=== PATIENT | female | born 1955 | race Hispanic/Latino ===

== ENCOUNTER 2018-05-29 18:23 | Inpatient (IN) | payer SELFPAY ==
[2018-05-29 19:55] LABS: Absolute Lymphocytes (CBC) 1.3 K/uL (0.7-4.9); Absolute Monocytes 0.6 K/uL (0.1-1.3); Absolute Neutrophil 4.7 K/uL (1.8-8.0); Eosinophils % 3.3 % (0-4.4); Hematocrit 28.2 % (36.0-45.0); Lymphocytes % 18.5 % (15.3-44.8); MPV 8.6 fL (7.6-11.3); Monocytes % 9.1 % (3.3-12.3); RBC Red Blood Cell Count 3.44 M/uL (3.86-4.86)
[2018-05-29] MEDS ORDERED: FUROSEMIDE 40 MG/4 ML VIAL ONE (19:55)
[2018-05-29] MEDS ORDERED: FUROSEMIDE 20 MG/ 2ML VIAL ONE (19:55)
[2018-05-29 19:56] LABS: Protime INR 1.21
[2018-05-29 20:11] LABS: Albumin 2.9 g/dL (3.4-5.0); Bilirubin Direct 0.1 mg/dL (0-0.2); Bilirubin Total 0.3 mg/dL (0.2-1.0); Potassium 4.7 mmol/L (3.5-5.1); Protein, Total 6.6 g/dL (6.4-8.2); Troponin (Emerg Dept Use Only) 0.04 ng/mL (0.0-0.045)
--- NOTE | 2018-05-29 20:20 | RAD REPORT ---
EXAM DESCRIPTION: Sol Elizabeth And Hector (2 Views)05/29/2018 8:02 pm CLINICAL HISTORY: sob COMPARISON: None FINDINGS: Mild bilateral pulmonary opacities. Small bilateral pleural effusions. The heart is mildl y enlarged IMPRESSION: These findings probably indicate CHF
--- NOTE | 2018-05-29 20:21 | ER ---
Nurse's Notes [facility] Name: Abby Meredith Age: 63 yrs Sex: Female : 1955 Arrival Date: 05/29/2018 Time: 18:34 Bed X-Ray Private MD: None, None Diagnosis: Acute combined systolic (congestive) and diastolic (congestive) heart failure Presentation: 05/29 19:12 Presenting complaint: Patient states: Bilateral leg swelling with SOB for 1 week. aj Transition of care: patient was not received from another setting of care. Onset of symptoms was May 22, 2018. Risk Assessment: Do you want to hurt yourself or someone else? Patient reports no desire to harm self or others. Initial Sepsis Screen: Does the patient meet any 2 criteria? No. Patient's initial sepsis screen is negative. Does the patient have a suspected source of infection? No. Patient's initial sepsis screen is negative. Care prior to arrival: None. 19:12 Method Of Arrival: Wheelchair aj 19:12 Acuity: TOMASA 3 aj Triage Assessment: 19:14 General: Appears in no apparent distress. uncomfortable, Behavior is calm, cooperative, aj appropriate for age. Pain: Denies pain. Neuro: Level of Consciousness is awake, alert, obeys commands, Oriented to person, place, time, situation, Appropriate for age. Respiratory: Reports shortness of breath at rest on exertion Airway is patent Respiratory effort is even, unlabored, Respiratory pattern is regular, tachypnea Onset: The symptoms/episode began/occurred gradually, the patient has mild shortness of breath. Derm: Skin is intact, is healthy with good turgor, Skin is pink, warm \T\ dry. normal. Historical: - Allergies: 19:14 PENICILLINS; aj - Home Meds: 19:14 Metformin Oral [Active]; Lisinopril Oral [Active]; pravastatin oral oral [Active]; aj gabapentin oral oral [Active]; Glipizide Oral [Active]; - PMHx: 19:14 Diabetes - IDDM; Hyperlipidemia; Hypertension; aj - PSHx: 19:14 Hernia repair; Appendectomy; aj - Immunization history:: Adult Immunizations up to date. - Social history:: Smoking status: Patient/guardian denies using tobacco. - Ebola Screening: : Patient negative for fever greater than or equal to 101.5 degrees Fahrenheit, and additional compatible Ebola Virus Disease symptoms Patient denies exposure to infectious person Patient denies travel to an Ebola-affected area in the 21 days before illness onset No symptoms or risks identified at this time. Screenin:55 Abuse screen: Denies threats or abuse. Denies injuries from another. Nutritional ca1 screening: No deficits noted. Tuberculosis screening: No symptoms or risk factors identified. Fall Risk None identified. Assessment: 19:55 General: Appears in no apparent distress. ill, Behavior is calm, cooperative. Pain: ca1 Denies pain. Neuro: Level of Consciousness is awake, alert, obeys commands, Oriented to person, place, time, situation. Cardiovascular: Reports nausea, shortness of breath, since 3 days ago. Heart tones S1 S2 present Capillary refill < 3 seconds Patient's skin is warm and dry. Edema is 3+ to left upper thigh, left lower thigh, left knee, left midcalf, left ankle, left foot, left toes, right upper thigh, right lower thigh, right knee, right midcalf, right ankle, right foot and right toes Rhythm is sinus rhythm. Respiratory: Reports shortness of breath at rest Airway is patent Trachea midline Respiratory effort is even, unlabored, Respiratory pattern is regular, symmetrical, Breath sounds are clear bilaterally. GI: Abdomen is round non-distended, Bowel sounds present X 4 quads. Abd is soft and non tender X 4 quads. Reports nausea. : No signs and/or symptoms were reported regarding the genitourinary system. EENT: No signs and/or symptoms were reported regarding the EENT system. Derm: Skin is intact, is healthy with good turgor, Skin is pink, warm \T\ dry. Musculoskeletal: Circulation, motion, and sensation intact. Range of motion: intact in all extremities. 20:12 Reassessment: Patient appears in no apparent distress at this time. Patient and/or ca1 family updated on plan of care and expected duration. Pain level reassessed. Patient is alert, oriented x 3, equal unlabored respirations, skin warm/dry/pink. Patient back from X-ray. Positioned patient comfortably on bed. Hooked back to monitors. Daughter at bedside. 21:18 Reassessment: Patient appears in no apparent distress at this time. Patient and/or ca1 family updated on plan of care and expected duration. Pain level reassessed. Patient is alert, oriented x 3, equal unlabored respirations, skin warm/dry/pink. Awaiting admitting orders. 21:30 Reassessment: Patient complaints of Headache with painscale of 9/10. Notified provider ca1 with orders carried out. 21:54 Reassessment: Patient appears in no apparent distress at this time. Patient and/or ca1 family updated on plan of care and expected duration. Pain level reassessed. Patient is alert, oriented x 3, equal unlabored respirations, skin warm/dry/pink. Patient states feeling better. Vital Signs: 19:14 BP 161 / 96; Pulse 85; Resp 25; Temp 98.8; Pulse Ox 98% on R/A; Weight 81.65 kg; Height aj 5 ft. 2 in. (157.48 cm); 20:12 BP 178 / 73; Pulse 85; Resp 21; Pulse Ox 97% on R/A; ca1 20:45 BP 166 / 82; Pulse 91; Resp 19; Pulse Ox 97% 2 lpm ; ca1 21:18 BP 161 / 84; Pulse 86; Resp 21; Pulse Ox 100% 2 lpm ; ca1 21:54 BP 169 / 76; Pulse 67; Resp 21; Pulse Ox 100% 2 lpm ; ca1 19:14 Body Mass Index 32.92 (81.65 kg, 157.48 cm) aj ED Course: 18:34 Patient arrived in ED. sb2 18:35 None, None is Private Physician. sb2 19:12 Triage completed. aj 19:14 Arm band placed on left wrist. Patient placed in waiting room, Patient notified of wait aj time. 19:20 Amrik Vigil PA is PHCP. jr8 19:20 Venancio Murray MD is Attending Physician. jr8 19:20 Patient has correct armband on for positive identification. Placed in gown. Bed in low ca1 position. Call light in reach. Side rails up X 1. 19:20 wool mixer on. Pulse ox on. NIBP on. ca1 19:31 Marian Chapa, RN is Primary Nurse. ca1 19:40 Initial lab(s) drawn, by me, sent to lab. Inserted saline lock: 20 gauge in right ca1 antecubital area, using aseptic technique. Blood collected. 20:01 Chest Pa And Lat (2 Views) XRAY In Process Unspecified. EDMS 20:20 Deepthi Mantilla MD is Hospitalizing Provider. jr8 21:53 No provider procedures requiring assistance completed. Patient admitted, IV remains in ca1 place. Administered Medications: 19:48 Drug: Lasix 60 mg Route: IVP; Site: right antecubital; ca1 20:15 Follow up: Response: No adverse reaction ca1 21:32 Drug: TORadol 30 mg Route: IVP; Site: right antecubital; ca1 21:52 Follow up: Response: No adverse reaction ca1 Outcome: 20:20 Decision to Hospitalize by Provider. jr8 22:00 Admitted to Tele via stretcher, room 405, with oxygen, with chart, Report called to ca1 Freda Brannon RN 22:00 Condition: stable 22:00 Instructed on the need for admit. 22:01 Patient left the ED. ca1 Signatures: Dispatcher [employer] EDMichelle Benson, RN RN Amrik Inman PA PA jr8 Betty Farias sb2 Marian Chapa RN RN ca1
--- NOTE | 2018-05-29 20:21 | EDPHYS ---
Physician Documentation [facility] Name: Abby Meredith Age: 63 yrs Sex: Female : 1955 Arrival Date: 05/29/2018 Time: 18:34 Bed X-Ray Private MD: None, None ED Physician Venancio Murray HPI: 05/29 19:43 This 63 yrs old Female presents to ER via Wheelchair with complaints of jr8 Shortness Of Breath, Leg Swelling. 19:43 The patient has shortness of breath at rest. Onset: The symptoms/episode began/occurred jr8 gradually, 2 week(s) ago. Duration: The symptoms are continuous. The patient's shortness of breath is aggravated by walking. Associated signs and symptoms: Pertinent positives: leg swelling . Severity of symptoms: At their worst the symptoms were moderate in the emergency department the symptoms are unchanged. The patient has not experienced similar symptoms in the past. The patient has not recently seen a physician. Denies pulmonary, heart, or renal problems . Historical: - Allergies: 19:14 PENICILLINS; aj - Home Meds: 19:14 Metformin Oral [Active]; Lisinopril Oral [Active]; pravastatin oral oral [Active]; aj gabapentin oral oral [Active]; Glipizide Oral [Active]; - PMHx: 19:14 Diabetes - IDDM; Hyperlipidemia; Hypertension; aj - PSHx: 19:14 Hernia repair; Appendectomy; aj - Immunization history:: Adult Immunizations up to date. - Social history:: Smoking status: Patient/guardian denies using tobacco. - Ebola Screening: : Patient negative for fever greater than or equal to 101.5 degrees Fahrenheit, and additional compatible Ebola Virus Disease symptoms Patient denies exposure to infectious person Patient denies travel to an Ebola-affected area in the 21 days before illness onset No symptoms or risks identified at this time. ROS: 19:43 Eyes: Negative for injury, pain, redness, and discharge, ENT: Negative for injury, jr8 pain, and discharge, Neck: Negative for injury, pain, and swelling, Abdomen/GI: Negative for abdominal pain, nausea, vomiting, diarrhea, and constipation, Back: Negative for injury and pain, MS/Extremity: Negative for injury and deformity, Skin: Negative for injury, rash, and discoloration, Neuro: Negative for headache, weakness, numbness, tingling, and seizure. 19:43 Cardiovascular: Positive for edema, orthopnea, Negative for chest pain, palpitations, paroxysmal nocturnal dyspnea. 19:43 Respiratory: Positive for dyspnea on exertion, shortness of breath. Exam: 19:43 Eyes: Pupils equal round and reactive to light, extra-ocular motions intact. Lids and jr8 lashes normal. Conjunctiva and sclera are non-icteric and not injected. Cornea within normal limits. Periorbital areas with no swelling, redness, or edema. ENT: Nares patent. No nasal discharge, no septal abnormalities noted. Tympanic membranes are normal and external auditory canals are clear. Oropharynx with no redness, swelling, or masses, exudates, or evidence of obstruction, uvula midline. Mucous membranes moist. Neck: Trachea midline, no thyromegaly or masses palpated, and no cervical lymphadenopathy. Supple, full range of motion without nuchal rigidity, or vertebral point tenderness. No Meningismus. Abdomen/GI: Soft, non-tender, with normal bowel sounds. No distension or tympany. No guarding or rebound. No evidence of tenderness throughout. Back: No spinal tenderness. No costovertebral tenderness. Full range of motion. Skin: Warm, dry with normal turgor. Normal color with no rashes, no lesions, and no evidence of cellulitis. MS/ Extremity: Pulses equal, no cyanosis. Neurovascular intact. Full, normal range of motion. Neuro: Awake and alert, GCS 15, oriented to person, place, time, and situation. Cranial nerves II-XII grossly intact. Motor strength 5/5 in all extremities. Sensory grossly intact. Cerebellar exam normal. Normal gait. 19:43 Cardiovascular: Rate: normal, Rhythm: regular, Pulses: Pulses are 2+ in right radial artery and left radial artery. Heart sounds: normal, normal S1and S2, no S3 or S4, no murmur, no rub, no gallop, Edema: 4+ edema to level of left lower thigh, left knee, left midcalf, left ankle, left foot, left toes, right lower thigh, right knee, right midcalf, right ankle, right foot and right toes, JVD: is not appreciated. 19:43 Respiratory: the patient does not display signs of respiratory distress, Respirations: tachypnea, that is mild, Breath sounds: are clear throughout, no bronchial sounds, no decreased breath sounds, no rales, rhonchi, no stridor, no wheezing. Vital Signs: 19:14 BP 161 / 96; Pulse 85; Resp 25; Temp 98.8; Pulse Ox 98% on R/A; Weight 81.65 kg; Height aj 5 ft. 2 in. (157.48 cm); 20:12 BP 178 / 73; Pulse 85; Resp 21; Pulse Ox 97% on R/A; ca1 20:45 BP 166 / 82; Pulse 91; Resp 19; Pulse Ox 97% 2 lpm ; ca1 21:18 BP 161 / 84; Pulse 86; Resp 21; Pulse Ox 100% 2 lpm ; ca1 21:54 BP 169 / 76; Pulse 67; Resp 21; Pulse Ox 100% 2 lpm ; ca1 19:14 Body Mass Index 32.92 (81.65 kg, 157.48 cm) aj MDM: 19:20 Patient medically screened. jr8 20:19 Data reviewed: vital signs, nurses notes, lab test result(s), EKG, radiologic studies, jr8 plain films. Data interpreted: Pulse oximetry: on room air is 97 %. Interpretation: normal. Counseling: I had a detailed discussion with the patient and/or guardian regarding: the historical points, exam findings, and any diagnostic results supporting the discharge/admit diagnosis, lab results, radiology results, the need for further work-up and treatment in the hospital. Physician consultation: Deepthi Mantilla MD was called at 20:20, was contacted at 20:20, regarding admission, to the telemetry unit. consult, patient's condition, and will see patient. 05/29 19:21 Order name: Basic Metabolic Panel; Complete Time: 20:12 [facility] 05/29 19:21 Order name: CBC with Diff; Complete Time: 20:09 [facility] 05/29 19:21 Order name: LFT's; Complete Time: 20:12 [facility] 05/29 19:21 Order name: Magnesium; Complete Time: 20:12 [facility] 05/29 19:21 Order name: NT PRO-BNP; Complete Time: 20:12 [facility] 05/29 19:21 Order name: PT-INR; Complete Time: 20:09 [facility] 05/29 19:16 Order name: Chest Pa And Lat (2 Views) XRAY; Complete Time: 20: 05/29 19:21 Order name: Troponin (emerg Dept Use Only); Complete Time: 20:12 [facility] 05/29 19:21 Order name: EKG; Complete Time: 19:22 [facility] 05/29 19:21 Order name: Cardiac monitoring; Complete Time: :31 [facility] 05/29 19:21 Order name: EKG - Nurse/Tech; Complete Time: : [facility] 05/29 19:21 Order name: IV Saline Lock; Complete Time: 19:41 [facility] 05/29 19:21 Order name: Labs collected and sent; Complete Time: : [facility] 05/29 19:21 Order name: O2 Per Protocol; Complete Time: : [facility] 05/29 19:21 Order name: O2 Sat Monitoring; Complete Time: :32 Administered Medications: 19:48 Drug: Lasix 60 mg Route: IVP; Site: right antecubital; ca1 20:15 Follow up: Response: No adverse reaction ca1 21:32 Drug: TORadol 30 mg Route: IVP; Site: right antecubital; ca1 21:52 Follow up: Response: No adverse reaction ca1 Disposition: 05/30 06:42 Co-signature as Attending Physician, Venancio Murray MD I agree with the assessment and kdr plan of care. Disposition: 05/29/18 20:20 Hospitalization ordered by Deepthi Mantilla for Inpatient Admission. Preliminary diagnosis is Acute combined systolic (congestive) and diastolic (congestive) heart failure. - Bed requested for Telemetry/MedSurg (Inpatient). - Status is Inpatient Admission. ca1 - Condition is Stable. - Problem is new. - Symptoms have improved. UTI on Admission? No Signatures: Dispatcher [employer] EDMS Xenia Donnelly RN RN mw Myers, Amanda, RN RN aj Rittger, Kevin, MD MD kdr Roszak, Josh, PA PA 8 Marian Chapa RN RN ca1 Corrections: (The following items were deleted from the chart) 05/29 20:44 20:20 Hospitalization Ordered by Deepthi Mantilla MD for Inpatient Admission. Preliminary diagnosis is Acute combined systolic (congestive) and diastolic (congestive) heart failure. Bed requested for Telemetry/MedSurg (Inpatient). Status is Inpatient Admission. Condition is Stable. Problem is new. Symptoms have improved. UTI on Admission? No. jr8 22:01 20:44 05/29/2018 20:20 Hospitalization Ordered by Deepthi Mantilla MD for Inpatient ca1 Admission. Preliminary diagnosis is Acute combined systolic (congestive) and diastolic (congestive) heart failure. Bed requested for Telemetry/MedSurg (Inpatient). Status is Inpatient Admission. Condition is Stable. Problem is new. Symptoms have improved. UTI on Admission? No. mw
[2018-05-29] MEDS ORDERED: KETOROLAC 30 MG/ML INJ ONE (21:35)
--- NOTE | 2018-05-29 21:35 | P.HP ---
Certification for Inpatient Patient admitted to: Inpatient With expected LOS: >2 Midnights Practitioner: I am a practitioner with admitting privileges, knowledge of patient current condition, hospital course, and medical plan of care. Services: Services provided to patient in accordance with Admission requirements found in Title 42 Section 412.3 of the Code of Federal Regulations Patient History Date of Service: 05/29/18 Reason for admission: pulmoanry edema History of Present Illness: Ms Meredith is a 63 years old woman with history of DM II, HTN, dyslipidemia, who start about 1 month ago with progressive SOB and lower extremity swelling. She has noticed that over the time, her activity was more limited because SOB, and lately she has had difficulty breathing even bed. She has been using about 5 pillows to sleep at night. Report heaviness chest pain episodes during the last month, elicited with activity and relieved with resting. The pain usually radiate to her left arm, and feel tingling in her fingers. No previous ECHO done. At arrival, she was dyspneic at rest, no chest pain, BP elevated, EKG shows SR at 80 bpm, with poor r progression in anterior leads. No ST-T abnormalities seen. ProBNP 6901. CXR with venous cephalization consistent with pulmonary edema. Allergies Penicillins Allergy (Severe, Verified 12/31/11 11:04) Anaphylaxis Home medications list reviewed: Yes - Past Medical/Surgical History -: HTN -: DM II -: obesity -: dyslipidemia Past Surgical History: Reviewed- Non-Contributory - Family History Family History: Reviewed- Non-Contributory - Social History Smoking Status: Never smoker Alcohol use: No CD- Drugs: No Place of Residence: Home Review of Systems 10-point ROS is otherwise unremarkable Physical Examination - Physical Exam General: Alert, In no apparent distress HEENT: Atraumatic, PERRLA, Mucous membr. moist/pink, EOMI, Sclerae nonicteric Neck: Supple, 2+ carotid pulse no bruit, No LAD, Without JVD or thyroid abnormality Respiratory: Normal air movement, Crackles/rales (bibasilar rales) Cardiovascular: Regular rate/rhythm, Normal S1 S2 Gastrointestinal: Normal bowel sounds, No tenderness Musculoskeletal: No tenderness, Swelling (bilateral lower extremity edema 3+) Integumentary: No rashes Neurological: Normal speech, Normal strength at 5/5 x4 extr, Normal tone, Normal affect Lymphatics: No axilla or inguinal lymphadenopathy - Studies Laboratory Data (last 24 hrs) 05/29/18 19:37: PT 14.3 H, INR 1.21 05/29/18 19:37: WBC 6.9, Hgb 9.5 L, Hct 28.2 L, Plt Count 239 05/29/18 19:37: Sodium 141, Potassium 4.7, BUN 23 H, Creatinine 1.03, Glucose 144 H, Magnesium 2.0, Total Bilirubin 0.3, AST 16, ALT 26, Alkaline Phosphatase 84 Assessment and Plan - Problems (Diagnosis) (1) CHF (congestive heart failure), NYHA class IV Current Visit: Yes Status: Acute Qualifiers: Congestive heart failure type: unspecified Qualified Code(s): I50.9 - Heart failure, unspecified (2) Diabetes mellitus Current Visit: Yes Status: Acute Qualifiers: Diabetes mellitus type: type 2 Diabetes mellitus sign writer hand insulin use: without sign writer hand use Diabetes mellitus complication status: with unspecified complications Qualified Code(s): E11.8 - Type 2 diabetes mellitus with unspecified complications (3) HTN (hypertension) Current Visit: Yes Status: Acute Qualifiers: Hypertension type: essential hypertension Qualified Code(s): I10 - Essential (primary) hypertension - Plan The patient will be admitted to the hospital due to CHF exacerbation without known LV function. Will order ECHO, IV lasix, lisinorpril and hydralazine PRN. replace electrolyte by protocol as needed, Consult cardiology for evaluation and recommendations. Will check HgbA1c, order SSI for blood sugar control. - Advance Directives Does patient have a Living Will: No Does patient have a Durable POA for Healthcare: No - Code Status/Comfort Care Code Status Assessed: Yes Code Status: Full Code
[2018-05-29] MEDS ORDERED: LISINOPRIL 10 MG TAB PO ONE (22:24)
[2018-05-29] MEDS ORDERED: ACETAMINOPHEN 500 MG TAB PO PRN (22:24)
[2018-05-29] MEDS ORDERED: HYDRALAZINE HCL 20 MG/ML VIAL IV PRN (22:24)
[2018-05-30] MEDS: TRAMADOL HCL 50 MG TAB PO PRN ×4 (00:56→20:33)
[2018-05-30] MEDS: FUROSEMIDE 40 MG/4 ML VIAL IV SCH ×4 (00:59→20:34)
[2018-05-30 05:22] LABS: Absolute Lymphocytes (CBC) 1.2 K/uL (0.7-4.9); Absolute Monocytes 0.7 K/uL (0.1-1.3); Absolute Neutrophil 3.7 K/uL (1.8-8.0); Basophils % 1.2 % (0-1.3); Eosinophils % 3.7 % (0-4.4); Hematocrit 25.1 % (36.0-45.0); Lymphocytes % 20.4 % (15.3-44.8); MPV 8.7 fL (7.6-11.3); Monocytes % 11.9 % (3.3-12.3); RBC Red Blood Cell Count 3.09 M/uL (3.86-4.86)
[2018-05-30 05:41] LABS: Potassium 4.5 mmol/L (3.5-5.1); Thyroid Stimulating Hormone 3.44 uIU/mL (0.360-3.740)
[2018-05-30] MEDS: NITROGLYCERIN 1 GM PKT TD SCH ×3 (06:44→17:23)
[2018-05-30] MEDS: INSULIN -REGULAR HUMAN 50 UNIT/0.5 ML ML SQ SCH ×4 (07:30→20:33)
[2018-05-30] MEDS: ENOXAPARIN 40 MG/0.4 ML SQ SCH (07:52)
[2018-05-30] MEDS ORDERED: PNEUMOCOCCAL VACCINE 0.5 ML IMVAC ONE (08:00)
--- NOTE | 2018-05-30 08:28 | EKG ---
Test Date: 2018-05-29 Test Time: 19:48:14 Slabbing Machine Operator: SHAYLA MEASUREMENT RESULTS: Intervals: Rate: 86 OH: 162 QRSD: 98 QT: 376 QTc: 449 [place]: P: 16 OH: 162 QRS: -13 T: 27 INTERPRETIVE STATEMENTS: Normal sinus rhythm Anterior infarct, age undetermined Abnormal ECG Compared to ECG 12/07/1994 11:33:00 Myocardial infarct finding now present Electronically Signed On 05-30-18 08:27:48 [employer] by Juan Brody
[2018-05-30] MEDS: ONDANSETRON 4 MG/2 ML VIAL IV PRN (08:59)
[2018-05-30] MEDS: LISINOPRIL 10 MG TAB PO SCH (08:59)
[2018-05-30] MEDS: LACTULOSE 20 GM/30 ML UCUP PO PRN ×2 (09:24→21:40)
--- NOTE | 2018-05-30 09:43 | P.PN ---
Subjective Date of Service: 05/30/18 Primary Care Provider: Dr. Thomas([place], [place]) Chief Complaint: pulmoanry edema Subjective: Other (Shortness of breath improved. Edema to the lower extremity still present but improved. Increase anxiety. Patient reports a history of chronic constipation. Mild nausea this morning.) Physical Examination - Vital Signs Temperature: 98.2 F Blood Pressure: 145/68 Pulse: 76 Respirations: 18 Pulse Ox (%): 99 - Physical Exam General: Alert, In no apparent distress, Oriented x3, Mild distress (Increase anxiety) HEENT: Atraumatic, Mucous membr. moist/pink Neck: Supple Respiratory: Clear to auscultation bilaterally (Better air movement bilateral), Diminished (Slightly diminished to the bases) Cardiovascular: Normal pulses, Regular rate/rhythm Gastrointestinal: Normal bowel sounds, Soft and benign, Non-distended, No tenderness, No masses, No rebound, No guarding Musculoskeletal: No tenderness, No warmth Integumentary: No erythema, No warmth, No cyanosis, Tenderness/swelling (1+ pitting edema to the lower extremities bilateral) Neurological: Normal speech, Normal strength at 5/5 x4 extr, Normal tone, Normal affect - Studies Laboratory Data (last 24 hrs) 05/29/18 19:37: PT 14.3 H, INR 1.21 05/29/18 19:37: WBC 6.9, Hgb 9.5 L, Hct 28.2 L, Plt Count 239 05/29/18 19:37: Sodium 141, Potassium 4.7, BUN 23 H, Creatinine 1.03, Glucose 144 H, Magnesium 2.0, Total Bilirubin 0.3, AST 16, ALT 26, Alkaline Phosphatase 84 Medications List Reviewed: Yes Assessment & Plan Discharge Plan: Home Plan to discharge in: Greater than 2 days Physician Review Additional Text: Impression: Edema to the lower extremities, pulmonary edema secondary to acute on chronic systolic CHF Nausea and vomiting with chronic constipation Diabetes mellitus type 2, A1c 6.1 Hypertension Obesity, BMI 32.8 GERD Anemia likely iron deficiency Suspect underlying obstructive sleep apnea: Plan: Edema to the lower extremities, pulmonary edema secondary to acute on chronic systolic CHF: Suspect acute on chronic systolic CHF. Will continue IV Lasix but will decrease to twice daily. Will monitor closely. Will maintain sats above 90%. Will wean off oxygen. Await echocardiogram. Case discussed with cardiology. Cardiology recommends CT chest to rule out pulmonary embolism. Cardiology also concern with her nausea, vomiting and chronic constipation. Cardiology recommends workup. Will order abdominal ultrasound and CT scan of the abdomen to further evaluate. Will monitor hemoglobin closely. Will continue monitor electrolytes closely. Nausea and vomiting with chronic constipation: Lower abdominal ultrasound and CT scan of the abdomen to further evaluate. Will provide medication for nausea and vomiting. Will provide medication for constipation. Patient may require GI evaluation as an outpatient. Diabetes mellitus type 2, A1c 6.1: A1c well controlled at 6.1. Will continue sliding scale. Hypertension: Will continue with medication. Will monitor and adjust appropriately. Obesity, BMI 32.8: Will address lifestyle modification education. GERD: Will provide PPI. Anemia likely iron deficiency: Will check iron and B12 studies. Will monitor hemoglobin. Patient may require blood if hemoglobin less than 7.0. Will monitor closely. Suspect underlying obstructive sleep apnea: Patient will need sleep study done as an outpatient. Time Spent Managing Pts Care (In Minutes): 55
[2018-05-30 10:28] LABS: Ferritin 6.9 ng/mL (8-388)
[2018-05-30 13:34] LABS: Urine Appearance CLEAR; Urine Bilirubin NEGATIVE (NEG); Urine Blood 2+ (NEG); Urine Color YELLOW; Urine Glucose NEGATIVE (NEG); Urine Protein 2+ (NEG); Urine Urobilinogen 0.2 mg/dL (0.2-1.0)
--- NOTE | 2018-05-30 13:44 | RAD REPORT ---
EXAM DESCRIPTION: US - Abdomen Exam Complete - 05/30/2018 1:06 pm CLINICAL HISTORY: Abdominal pain, nausea and vomiting COMPARISON: CT imaging May 30 FINDINGS: Gallbladder is not visualized. Earlier CT study showed cholecystectomy clips in place. No mass or abnormal fluid collection in the gallbladder fossa. Common bile duct is normal with no common duct stone identified. The liver and spleen show no suspicious findings. Spleen is 11 cm in maximum dimension. Liver is 17 cm in maximum dimension. The pancreas is obscured. Earlier CT study showed no pancreatic or peripancreatic abnormalities. No hydronephrosis or suspicious mass in either kidney. Aorta is normal is size. No ascites or bulky lymphadenopathy. No IVC abnormality. IMPRESSION: Cholecystectomy with no biliary tree dilatation. Pancreas is too obscured by bowel gas. Earlier CT study showed no pancreatic abnormality.
--- NOTE | 2018-05-30 13:46 | RAD REPORT ---
EXAM DESCRIPTION: RAD - Chest Pa And Lat (2 Views) - 05/30/2018 1:09 pm CLINICAL HISTORY: Dizziness, shortness of breath COMPARISON: CT imaging same date, two view chest May 29 TECHNIQUE: PA and lateral views of the chest were obtained. FINDINGS: The lungs are underinflated. Interstitial markings are prominent. Heart size is slightly e nlarged with prominent vasculature. Bilateral pleural effusions are present right greater than left. The fluid is similar to comparison. Trachea is midline. No pneumothorax. No acute bony finding noted . No aortic abnormality. IMPRESSION: Bilateral pleural effusions similar to May 29. Heart, vasculature and lung markings are all prominent. CHF/ volume overload pattern is still present not substantially different from prior day imaging.
--- NOTE | 2018-05-30 13:52 | RAD REPORT ---
EXAM DESCRIPTION: CT - Chest For Pe Angio - 05/30/2018 12:46 pm CLINICAL HISTORY: Chest pain, shortness of breath COMPARISON: Chest examination May 29 TECHNIQUE: Dynamically enhanced 3 mm thick images of the chest were obtained during administration o f approximately 150mL Isovue 370 IV contrast. Coronal and oblique MIP reconstruction images were gene rated and reviewed. Exam utilizes a protocol to evaluate the pulmonary arterial tree. All CT scans are performed using dose optimization technique as appropriate and may include automated exposure control or mA/KV adjustment according to patient size. FINDINGS: No pulmonary emboli are identified. The aorta as imaged shows no acute or suspicious finding. Small to moderate pericardial effusion up t o 11 mm in thickness. Overall cardiac size is not outside of normal range. Partial atelectasis of each lower lobe noted. Interstitial markings are prominent overall. Patient gaytan s small to moderate bilateral pleural effusions right greater than left. No pneumothorax or pleural b ased mass. No mediastinal or hilar suspicious masses. No chest wall masses or abnormal axillary lymphadenopathy. IMPRESSION: No pulmonary emboli identified. Small to moderate pericardial effusion up to 11 mm in thickness. Small to moderate bilateral pleural effusions right greater than left. Bilateral lung base atelectasis with overall interstitial thickening that can reflect failure or volu me overload.
--- NOTE | 2018-05-30 13:55 | RAD REPORT ---
EXAM DESCRIPTION: CT - Abdomen Pelvis W Contrast - 05/30/2018 1:46 pm CLINICAL HISTORY: Abdominal pain COMPARISON: None. TECHNIQUE: Biphasic, helical CT imaging of the abdomen and pelvis was performed following 100 ml non -ionic IV contrast. Oral contrast was given. All CT scans are performed using dose optimization technique as appropriate and may include automated exposure control or mA/KV adjustment according to patient size. FINDINGS: Heart and lung base findings are detailed in separate CT chest PE report. Liver and spleen show no suspicious findings. Cholecystectomy clips are present. No biliary tree dila tation. No pancreatic parenchymal solid or cystic mass. No peripancreatic edema or inflammatory stranding. Glenn miller does have a small duodenal diverticulum. Symmetric renal function is seen with no hydronephrosis or suspicious renal mass. No pyelonephritis o r acute parenchymal process. Urinary bladder is contracted around a Rai catheter. Uterus and ovarie s show no suspicious findings. Pelvic floor laxity is evident. No adrenal abnormalities. Punctate 3 m m nonobstructing calculus lower pole right kidney. No dilated bowel loops or bowel wall thickening. Moderate stool volume present in the colon. No activ e GI process seen. No free air, free fluid or inflammatory stranding. No mass or bulky lymphadenopat hy. No hernia seen. Postsurgical changes are noted to the anterior abdominal wall from prior hernia r epair. Disc and bony degenerative changes are present. No acute or destructive bone process. Vascular calcif ications are present. Patient has fluid retention in the subcutaneous fatty tissues believed be part of an overall CHF/ vol ume overload. IMPRESSION: No obstruction, free air or surgically emergent finding. No pancreatic abnormality seen. No acute or significant , GI or GUILLOTINE TRIMMER process. Fluid retention in the subcutaneous fatty tissues part of an overall failure/ volume overload present ation. Heart and lung base findings are separately detailed.
--- NOTE | 2018-05-30 14:05 | CON ---
History Of Present Illness: Ms. Meredith has been ill for more than a month. She has been refusing to come to the hospital or see a doctor and be evaluated. Her family has been suggesting that for clos e to a month, but she finally came in. She states that her weight has gone up. She has had swelling from the waist down, lots of edema in the legs, thighs, buttocks. She has been short of breath, martina ting almost everywhere. Has abdominal pain. She has not had a bowel movement in more than 3 weeks. Every morning, she gets nauseated. She denies having chills or fever. The patient has underlying d iabetes, dyslipidemia, and hypertension. She takes metformin, lisinopril, gabapentin, Pravachol, and glipizide. She is allergic to penicillin. Uses no tobacco, no alcohol. No recreational drugs. No history of myocardial infarction, stroke, vascular disease. Physical Examination: General: 5 feet 3 inches, 185 pounds. She was nauseated, retching a little bit, but no vomit was co raisa. Lungs: Do not reveal crackles. There are decreased breath sounds in the right lung base, egophony t here as well. Abdomen: Slightly obese. I suspect there may be ascites, not 100% sure. The abdominal wall certain ly has edema. Extremities: Reveal 3 to 4+ pitting edema. The troponin level is normal and N-terminal proBNP is mo re than 6900. Creatinine 1.0. Blood sugars 144, 141, and 161. She is very anemic. Hemoglobin 8.6, mean corpuscular volume 81, so a normochromic anemia with a normal platelet count and white blood ce ll count that is within normal limits. Impression: The patient has some form of right-sided heart failure. I am not sure if she has multip le PEs or not. I think a CT angio of the chest would be worthwhile doing at some point. An echocard iogram should be done. I am suspicious that she may have ascites, so CT scans and abdominal ultrasou nds are also planned. This seems to be a disease process affecting multiple organ systems, and the h eart may be the primary culprit or it may be that she has had multiple PEs from an underlying maligna ncy and the heart is secondary to that. Thank you very much for your kind referral of Mrs. Meredith. I will follow her with you. JOSY Voice ID: [id number] Report ID: [id number]
[2018-05-30 14:08] LABS: Urine Bacteria <20 /HPF (<20)
[2018-05-30 14:09] LABS: Urine Culture Reflex Order NOT NEEDED
[2018-05-30] MEDS: ATORVASTATIN 10 MG TAB PO SCH (20:34)
[2018-05-30] MEDS ORDERED: FLEET ENEMA ADULT PR ONE (21:59)
[2018-05-31] MEDS: NITROGLYCERIN 1 GM PKT TD SCH ×4 (00:28→17:23)
[2018-05-31 05:24] LABS: Absolute Lymphocytes (CBC) 1.3 K/uL (0.7-4.9); Absolute Monocytes 0.6 K/uL (0.1-1.3); Absolute Neutrophil 3.4 K/uL (1.8-8.0); Basophils % 1.4 % (0-1.3); Eosinophils % 4.3 % (0-4.4); Hematocrit 24.9 % (36.0-45.0); Lymphocytes % 22.4 % (15.3-44.8); MPV 8.7 fL (7.6-11.3); Monocytes % 10.9 % (3.3-12.3); RBC Red Blood Cell Count 3.07 M/uL (3.86-4.86)
[2018-05-31 05:39] LABS: Magnesium 2.2 mg/dL (1.8-2.4); Potassium 4.8 mmol/L (3.5-5.1)
[2018-05-31] MEDS: TRAMADOL HCL 50 MG TAB PO PRN ×3 (05:40→20:19)
[2018-05-31] MEDS: ONDANSETRON 4 MG/2 ML VIAL IV PRN ×3 (05:40→17:23)
[2018-05-31] MEDS: INSULIN -REGULAR HUMAN 50 UNIT/0.5 ML ML SQ SCH ×4 (07:30→20:21)
[2018-05-31] MEDS: FUROSEMIDE 40 MG/4 ML VIAL IV SCH ×2 (08:27→20:22)
[2018-05-31] MEDS: ENOXAPARIN 40 MG/0.4 ML SQ SCH (08:27)
[2018-05-31] MEDS: LISINOPRIL 10 MG TAB PO SCH (08:29)
[2018-05-31] MEDS ORDERED: ALPRAZOLAM 0.25 MG TABLET PO PRN (09:53)
--- NOTE | 2018-05-31 09:57 | P.PN ---
Subjective Date of Service: 05/31/18 Primary Care Provider: Dr. Thomas([place], [place]) Chief Complaint: pulmoanry edema Subjective: Other (Patient improved since yesterday. Edema to the lower extremities improved. Still with anxiety.) Physical Examination - Vital Signs Temperature: 98 F Blood Pressure: 125/58 Pulse: 78 Respirations: 16 Pulse Ox (%): 96 - Physical Exam General: Alert, In no apparent distress, Oriented x3, Cooperative, Other ( Increasing anxiety) HEENT: Atraumatic Neck: Supple Respiratory: Other (Better air movement bilateral. Less crackles to the bases) Cardiovascular: Normal pulses, Regular rate/rhythm Gastrointestinal: Normal bowel sounds, Soft and benign, Non-distended, No tenderness, No masses, No rebound, No guarding Musculoskeletal: No tenderness, No warmth Integumentary: Tenderness/swelling (Edema to the lower extremity improved) Neurological: Normal speech, Normal strength at 5/5 x4 extr, Normal tone, Abnormal affect (Increased anxiety) - Studies Medications List Reviewed: Yes Assessment & Plan Discharge Plan: Home Plan to discharge in: 48 Hours Physician Review Additional Text: Impression: Edema to the lower extremities, pulmonary edema secondary to acute on chronic systolic CHF Nausea and vomiting with chronic constipation Diabetes mellitus type 2, A1c 6.1 Hypertension Obesity, BMI 32.8 GERD Anemia with noted iron and B12 deficiency Suspect underlying obstructive sleep apnea Anxiety Plan: Edema to the lower extremities, pulmonary edema secondary to acute on chronic systolic CHF: Suspect acute on chronic systolic CHF. Will continue with IV Lasix and fluid restriction. CT scan did not reveal any pulmonary embolism. CT scan of the abdomen unremarkable. Patient to have echocardiogram and cardiac stress test. Will continue to monitor closely. Will physical therapy ambulate. Await further recommendations from cardiology. Anticipate discharge in the next 1-2 days. Patient may require home health and physical therapy at discharge. Nausea and vomiting with chronic constipation: Lower abdominal ultrasound and CT scan of the abdomen unremarkable. Will provide medication for nausea. Will also provide medication for constipation. Patient may require GI evaluation as an outpatient. Diabetes mellitus type 2, A1c 6.1: A1c well controlled at 6.1. Will continue sliding scale. Hypertension: Will continue with medication. Will monitor and adjust appropriately. Obesity, BMI 32.8: Will address lifestyle modification education. GERD: Will continue with PPI. Anemia with iron and B12 deficiency: Will provide iron and B12 supplementation. Will monitor hemoglobin. Patient may require blood if hemoglobin less than 7.0. Will monitor closely. Patient will need GI evaluation as an outpatient. Suspect underlying obstructive sleep apnea: Patient will need sleep study done as an outpatient. Anxiety: Will provide medication as needed Time Spent Managing Pts Care (In Minutes): 55
--- NOTE | 2018-05-31 10:14 | EKG ---
Test Date: 2018-05-30 Test Time: 22:16:06 Food Server: RT-O MEASUREMENT RESULTS: Intervals: Rate: 90 TX: 146 QRSD: 104 QT: 378 QTc: 462 [place]: P: 9 TX: 146 QRS: -25 T: 61 INTERPRETIVE STATEMENTS: Normal sinus rhythm Anteroseptal infarct, age undetermined Abnormal ECG Compared to ECG 05/29/2018 19:48:14 No significant changes Electronically Signed On 05-31-18 10:13:03 [id number] DEVELOPER by Juan Brody
[2018-05-31] MEDS ORDERED: CYANOCOBALAMIN 1000MCG/ML INJ IM ONE (11:00)
--- NOTE | 2018-05-31 12:45 | RAD REPORT ---
EXAM DESCRIPTION: RAD - Chest Pa And Lat (2 Views) - 05/31/2018 6:13 am CLINICAL HISTORY: follow up CHF Chest pain. COMPARISON: Chest Pa And Lat (2 Views) dated 05/30/2018; Chest Pa And Lat (2 Views) dated 05/29/2018 FINDINGS: Small left and moderate right pleural effusion again noted, unchanged. Bilateral interstit ial lung prominence appears essentially stable. The heart is mildly to moderately enlarged in size. N o displaced fractures. IMPRESSION: Stable chest.
--- NOTE | 2018-05-31 16:25 | PN ---
Since our initial evaluation, Mrs. Meredith has had a CT of the chest to rule out PE. There is no evid ence of pulmonary embolus. She has had an echocardiogram that shows a very small pericardial effusio n. The ejection fraction is normal. There is aortic sclerosis without aortic stenosis. She appears to have normal pulmonary artery pressure. Left and right atria appear to be mildly enlarged. Peric ardial effusion is very small and is not capable of causing pericardial tamponade nor is there any fi nding on there to suggest she is in tamponade. She has no evidence of mass in the abdomen nor ascite s. She has had previous gallbladder surgery. Today, the amount of edema she has is reduced. She gaytan s a sed rate that is 48. Her hemoglobin remains stable at 8.5. We have a patient with an inflammato ry condition profound anemia and what looks like high output heart failure, meaning the high cardiac output required by the anemia has led to the heart failure symptoms. Diuresis is the way to go and g etting an evaluation for her anemia is likewise important. I would not be very comfortable attributi ng this to anemia of chronic disease, perhaps a Hematology consultation would be beneficial. In the meantime, we will continue the diuresis. I think it might be worthwhile for her to do a nuclear phar macologic stress test tomorrow. JOSY Voice ID: [id number] Report ID: [id number]
[2018-05-31] MEDS: ATORVASTATIN 10 MG TAB PO SCH (20:20)
[2018-05-31] MEDS: LACTULOSE 20 GM/30 ML UCUP PO PRN (21:39)
[2018-06-01] MEDS: TRAMADOL HCL 50 MG TAB PO PRN ×4 (04:14→23:28)
[2018-06-01] MEDS: ONDANSETRON 4 MG/2 ML VIAL IV PRN (04:15)
[2018-06-01 04:39] LABS: Absolute Lymphocytes (CBC) 1.3 K/uL (0.7-4.9); Absolute Monocytes 0.7 K/uL (0.1-1.3); Absolute Neutrophil 3.8 K/uL (1.8-8.0); Basophils % 1.1 % (0-1.3); Hematocrit 25.9 % (36.0-45.0); Lymphocytes % 21.2 % (15.3-44.8); MPV 8.6 fL (7.6-11.3); Monocytes % 11.4 % (3.3-12.3); RBC Red Blood Cell Count 3.21 M/uL (3.86-4.86)
[2018-06-01 04:42] LABS: Magnesium 2.1 mg/dL (1.8-2.4); Potassium 4.9 mmol/L (3.5-5.1)
[2018-06-01] MEDS: NITROGLYCERIN 1 GM PKT TD SCH ×5 (06:00→23:27)
[2018-06-01] MEDS: INSULIN -REGULAR HUMAN 50 UNIT/0.5 ML ML SQ SCH ×4 (07:30→21:00)
--- NOTE | 2018-06-01 07:48 | ECHO ---
HEIGHT: 5 ft 3 in WEIGHT: 214 lb 4.8 oz DATE OF STUDY: 05/30/[address]: Juan Brody MD 2-DIMENSIONAL: YES M.MODE: YES DOPPLER: YES COLOR FLOW: YES TDS: PORTABLE: DEFINITY: BUBBLE STUDY: DIAGNOSIS: CONGESTIVE HEART FAILURE CARDIAC HISTORY: CATHERIZATION: NO SURGERY: NO PROSTHETIC VALVE: NO PACEMAKER: NO MEASUREMENTS (cm) DIASTOLIC (NORMALS) SYSTOLIC (NORMALS) IVSd 1.3 (0.6-1.2) LA Diam 3.9 (1.9-4.0) LVEF 59% LVIDd 4.7 (3.5-5.7) LVIDs 3.2 (2.0-3.5) %FS 31% LVPWd 1.4 (0.6-1.2) Ao Diam 3.1 (2.0-3.7) 2 DIMENSIONAL ASSESSMENT: RIGHT ATRIUM: NORMAL LEFT ATRIUM: NORMAL RIGHT VENTRICLE: NORMAL LEFT VENTRICLE: LEFT VENTRICULAR HYPERTROPHY TRICUSPID VALVE: NORMAL MITRAL VALVE: NORMAL PULMONIC VALVE: NORMAL AORTIC VALVE: SCLEROSIS PERICARDIAL EFFUSION: SMALL AORTIC ROOT: NORMAL LEFT VENTRICULAR WALL MOTION: NORMAL DOPPLER/COLOR FLOW: MILD MITRAL REGURGITATION AND TRICUSPID REGURGITATION. NORMAL RIGHT VENTRICULAR SYSTOLIC PRESSURE. NO AORITC STENOSIS OR AORTIC REGURGITATION. COMMENTS: NORMAL LEFT VENTRICULAR EJECTION FRACTION. LEFT VENTRICULAR HYPERTROPHY. SMALL PERICARDIAL EFFUSION. AORITC SCLEROSIS WITH NO AORTIC STENOSIS OR AORTIC REGURGITATION. MILD MITRAL REGURGITATION AND TRICUSPID REGURGITATION. TECHNOLOGIST: THAD DYKES
[2018-06-01] MEDS ORDERED: SODIUM CHLORIDE 0.9% 10ML INJ IV PRN (07:49)
[2018-06-01] MEDS: PROMETHAZINE 25 MG/ML VIAL IV PRN ×2 (08:08→23:27)
[2018-06-01] MEDS: CYANOCOBALAMIN 1,000 MCG TAB PO SCH (09:00)
[2018-06-01] MEDS: FERROUS SULFATE 325 MG TAB PO SCH (09:00)
[2018-06-01] MEDS: LISINOPRIL 10 MG TAB PO SCH (09:00)
--- NOTE | 2018-06-01 09:29 | P.PN ---
Subjective Date of Service: 06/01/18 Primary Care Provider: Dr. Thomas([place], [place]) Chief Complaint: pulmoanry edema Subjective: Other (Patient with nausea and vomiting this morning. Patient reports chronic nausea and vomiting. Edema to the lower extremity improved.) Physical Examination - Vital Signs Temperature: 97.9 F Blood Pressure: 146/66 Pulse: 78 Respirations: 12 Pulse Ox (%): 96 - Physical Exam General: Alert, Mild distress (Nausea and vomiting noted) HEENT: Atraumatic Neck: Supple Respiratory: Clear to auscultation bilaterally, Normal air movement Cardiovascular: Normal pulses, Regular rate/rhythm Gastrointestinal: Normal bowel sounds, Non-distended, No tenderness, No masses, Other (Nausea and vomiting noted) Musculoskeletal: No erythema, No tenderness, No warmth Integumentary: Tenderness/swelling (Edema to the lower improved) Neurological: Normal speech, Normal strength at 5/5 x4 extr, Normal tone, Abnormal affect (Increase anxiety) - Studies Medications List Reviewed: Yes Assessment & Plan Discharge Plan: Home Plan to discharge in: 48 Hours Physician Review Additional Text: Impression: Edema to the lower extremities, pulmonary edema secondary to high output cardiac failure with noted small pericardial effusion likely inflammatory in nature and related to anemia Chronic Nausea and vomiting with chronic constipation Diabetes mellitus type 2, A1c 6.1 Hypertension Obesity, BMI 32.8 GERD Anemia with noted iron and B12 deficiency Suspect underlying obstructive sleep apnea Anxiety Plan: Edema to the lower extremities, pulmonary edema secondary to high output cardiac failure with noted small pericardial effusion likely inflammatory in nature and related to anemia: Echocardiogram reviewed. Notes reviewed from cardiology. Will continue with diuresis. Will monitor closely. Elevate legs when sitting or lying. Fluid restriction to be continued. Cardiology recommends hematology consultation. Will check peripheral smear. Will need to monitor hemoglobin closely. Will discuss case with hematology. Patient with increased nausea and vomiting. This appears chronic. Will check upper GI series. Will decrease her diet to clears. Will discontinue Zofran and change to Phenergan. Will also add Protonix IV. Will also send lab to evaluate for autoimmune disease, hepatitis panel, and HIV. Will continue to reassess and monitor closely. Chronic Nausea and vomiting with chronic constipation: Patient with nausea and vomiting. Will adjust diet to clear liquids. Will check upper GI series. Abdominal ultrasound and CT scan unremarkable. She has had bowel movements during her stay. Patient will likely require GI evaluation as an outpatient. Will discontinue Zofran. Will change to Phenergan. Will add Protonix. Diabetes mellitus type 2, A1c 6.1: A1c well controlled at 6.1. Will continue sliding scale. Hypertension: Will continue with medication. Will monitor and adjust appropriately. Obesity, BMI 32.8: Will continue to address lifestyle modification education. GERD: Will continue with PPI. Anemia with iron and B12 deficiency: Will monitor closely. No need for transfustion. Will continue to iron and B12 supplementation. Will discuss with Hematology. Continue as above. Suspect underlying obstructive sleep apnea: Patient will need sleep study done as an outpatient. Anxiety: Will provide medication as needed Time Spent Managing Pts Care (In Minutes): 55
[2018-06-01] MEDS: FUROSEMIDE 40 MG/4 ML VIAL IV SCH ×2 (10:10→21:10)
[2018-06-01] MEDS: ENOXAPARIN 40 MG/0.4 ML SQ SCH (10:10)
[2018-06-01] MEDS: PANTOPRAZOLE 40 MG INJ IVP SCH (10:10)
[2018-06-01] MEDS ORDERED: REGADENOSON 0.4 MG/5 ML SYR IV ONE (10:16)
[2018-06-01 10:48] LABS: Platelet Estimate ADEQ
[2018-06-01 10:49] LABS: Blood Morphology Comment NOTED (NOT SEEN)
[2018-06-01 10:50] LABS: Anisocytosis SLIGHT
[2018-06-01] MEDS: SPIRONOLACTONE 25 MG TABLET PO SCH ×2 (11:24→21:13)
--- NOTE | 2018-06-01 11:24 | P.CNS ---
Date of Consult: 06/01/18 Primary Care Provider: Dr. Thomas([place], [place]) Chief Complaint: Lower extremity edema shortness of breath History of Present Illness: Patient is 63 years of age has been complaining of lower extremity edema for the past 3 weeks with orthopnea shortness of breath for prior history of cardiopulmonary problems she does have a history of diabetes and is compliant with her medication the all this started since she started taking her medic also been complaining of significant coughing spells during the day and night denies any fever or chills Allergies Penicillins Allergy (Severe, Verified 12/31/11 11:04) Anaphylaxis Home Medications: Gabapentin [Neurontin*] 100 mg PO TID PRN 05/30/18 Glipizide [Glucotrol] 10 mg PO BID 05/30/18 Lisinopril 10 mg PO DAILY 05/30/18 Metformin HCl [Glucophage] 1,000 mg PO BID 05/30/18 Pravastatin Sodium 40 mg PO DAILY 05/30/18 - Past Medical/Surgical History Diabetic: Yes -: HTN -: DM II -: obesity -: dyslipidemia -: hernia repair X 2 -: appendectomy - Social History Alcohol use: No CD- Drugs: No Caffeine use: Yes Place of Residence: Home Review of Systems General: Weakness Respiratory: Cough, Shortness of Breath Cardiovascular: Edema Physical Examination Temp Pulse Resp BP Pulse Ox 97.9 F 78 12 146/66 H 96 06/01/18 09:29 06/01/18 09:29 06/01/18 09:29 06/01/18 09:29 06/01/18 09:29 General: Alert, Oriented x3, Mild distress HEENT: Atraumatic Neck: Supple Respiratory: Clear to auscultation bilaterally Cardiovascular: Regular rate/rhythm, Normal S1 S2, Edema (Significant 3+ edema) Gastrointestinal: Normal bowel sounds, Soft and benign Musculoskeletal: No clubbing, No swelling - Problems (1) Lower extremity edema Current Visit: Yes Status: Acute Plan: Patient is 63 years of age admitted with 3 week history of significant lower extremity edema shortness of breath renal function is abnormal BNP is over 6 1000 patient is mildly anemic patient has cardiomegaly her hypertrophy possible underlying diastolic dysfunction chronically elevated right hemidiaphragm prominent interstitial changes continue with aggressive diuresis of lisinopril oxygenation appears to be satisfactory patient does have some pleural effusions
--- NOTE | 2018-06-01 14:35 | RAD REPORT ---
EXAM DESCRIPTION: NM - Rest Stress Cardiac Imaging - 06/01/2018 2:15 pm CLINICAL HISTORY: Chest pain COMPARISON: None. TECHNIQUE: The patient was administered approximately 10 mCi of Tc 99m Sestamibi prior to resting SP ECT imaging of the heart. The patient was then administered approximately 30 mCi of Tc 99m Sestamibi following exercise or pharmacologic stress. Multiplanar SPECT images were reviewed. FINDINGS: The end diastolic volume is 146 ml, the end systolic volume is 77 ml, and the ejection fra ction is 47 %. Focal fixed defects are present in the anteroseptal wall near the apex and in the mid inferior wall. These are typical artifacts of breast and diaphragm attenuation. Scarring is less likely. There is a broader area of diminished activity along the anterior wall on stress imaging. IMPRESSION: Questionable anterior wall stress ischemia. Mid inferior wall and apical anteroseptal defects typical for breast and diaphragm attenuation artifa ct. Enlarged end-diastolic volume of 146 mL. Ejection fraction is below normal at 47%.
--- NOTE | 2018-06-01 15:53 | RAD REPORT ---
EXAM DESCRIPTION: RAD - Abdomen 1 View (KUB) - 06/01/2018 2:35 pm CLINICAL HISTORY: Nausea, vomiting, anemia COMPARISON: CT May 30 FINDINGS: Bowel gas pattern is non-specific. No obstruction, free air or pneumatosis. Air, stool an d contrast are present throughout the colon to the level of the rectum. Contrast is from earlier CT s tudy indicating full transit through the small bowel. No suspicious calcifications are present. Clips are seen from prior hernia repair. No significant bony findings IMPRESSION: No obstruction, free air or surgically emergent finding. Oral contrast from the May 30 CT study has reached the distal rectum.
[2018-06-01] MEDS: ATORVASTATIN 10 MG TAB PO SCH (21:10)
[2018-06-02] MEDS: NITROGLYCERIN 1 GM PKT TD SCH ×4 (05:54→23:09)
[2018-06-02] MEDS: TRAMADOL HCL 50 MG TAB PO PRN ×3 (05:54→21:13)
[2018-06-02 06:14] LABS: Absolute Monocytes 0.6 K/uL (0.1-1.3); Absolute Neutrophil 4.3 K/uL (1.8-8.0); Basophils % 0.9 % (0-1.3); Eosinophils % 5.3 % (0-4.4); Hematocrit 28.4 % (36.0-45.0); Lymphocytes % 15.5 % (15.3-44.8); MPV 8.5 fL (7.6-11.3); RBC Red Blood Cell Count 3.52 M/uL (3.86-4.86)
[2018-06-02 06:39] LABS: Potassium 4.5 mmol/L (3.5-5.1)
[2018-06-02] MEDS: INSULIN -REGULAR HUMAN 50 UNIT/0.5 ML ML SQ SCH ×4 (07:30→21:00)
[2018-06-02] MEDS: PROMETHAZINE 25 MG/ML VIAL IV PRN ×3 (08:46→21:14)
[2018-06-02] MEDS: FUROSEMIDE 40 MG/4 ML VIAL IV SCH ×2 (08:49→21:13)
[2018-06-02] MEDS: CYANOCOBALAMIN 1,000 MCG TAB PO SCH (08:49)
[2018-06-02] MEDS: SPIRONOLACTONE 25 MG TABLET PO SCH ×2 (08:49→21:13)
[2018-06-02] MEDS: FERROUS SULFATE 325 MG TAB PO SCH (08:49)
[2018-06-02] MEDS: PANTOPRAZOLE 40 MG INJ IVP SCH (08:49)
[2018-06-02] MEDS: ENOXAPARIN 40 MG/0.4 ML SQ SCH (08:50)
--- NOTE | 2018-06-02 10:20 | TREADPHA ---
DX: CHEST PAIN Date of Study: 06/01/18 Ht: 5 3 Wt: 214 lb 4.8 oz Consulting Physician: SCOOTER MEDICATIONS: LASIX, LOVENOX, INSULIN, NITRO PATCH, LISINOPRIL, LIPITOR, FERROUS SULFATE. HISTORY: 63 YEAR FEMALE. CC: ACUTE SYSTOLIC/DIASTOLIC HEART FAILURE. HISTORY- INSULIN DEPENDENT DIABETES MELLITUS, HYPERLIPIDEMIA, HYPERTENSION. NON-SMOKER, NON-DRINKER. PHYSICIAL EXAMINATION: RESTING B.P.: 154/68 RESTING H.R.: 81 RESTING EKG: SINUS RHYTHM, CAN NOT RULE OUT MYOCARDIAL INFARCTION. PROTOCOL: LEXISCAN EXERCISE TIME: 3:30 B.P. AT PEAK STRESS: 126/58 IMPRESSION: LEXISCAN INJECTED, FOLLOWED BY CARDIOLITE PER PROTOCOL. SEE NUCLEAR MEDICINE REPORT. NO SUPRAVENTRICULAR TACHYCARDIA. NO VENTRICULAR TACHYCARDIA. NO PREMAURE ATRIAL CONTRACTIONS. ONE PREMATURE VENTRICULAR CONTRACTION. PATIENT REPORTED CHEST PAIN 6/10 PRIOR TO STRESS TEST. PATIENT REPORTED NO INCREASE IN CHEST PAIN THROUGHOUT PROCEDURE. NON-DIAGNOSTIC ELECTROCARDIOGRAM WITH LEXISCAN STRESS.
--- NOTE | 2018-06-02 10:23 | PN ---
Subjective: Mrs. Meredith has an abnormal Cardiolite showing anterior ischemia. I will recommend fifi taveras a cardiac cath tomorrow. If she needs a stent, it would be a very high-risk procedure because of h er low hemoglobin so far on diagnosis and she has just a modest stenosis, I will elect to do the sten t in a staged procedure probably after we are sure that she is not going to suffer from GI bleeding. I suspect her CAD is probably minimal and the stent will be required. JOSY Voice ID: [id number] Report ID: [id number]
--- NOTE | 2018-06-02 11:11 | P.PN ---
Subjective Date of Service: 06/02/18 Primary Care Provider: Dr. Thomas([place], [place]) Chief Complaint: Lower extremity edema shortness of breath Subjective: Other (Nausea still present but improved. Patient had abnormal stress test done yesterday.) Physical Examination - Vital Signs Temperature: 97.4 F Blood Pressure: 178/79 Pulse: 80 Respirations: 16 Pulse Ox (%): 99 - Physical Exam General: Alert, In no apparent distress, Oriented x3, Cooperative HEENT: Atraumatic Neck: Supple Respiratory: Crackles/rales (To the bases but improved) Cardiovascular: Normal pulses, Regular rate/rhythm Gastrointestinal: Normal bowel sounds, Soft and benign, Non-distended, No masses , No rebound, No guarding Musculoskeletal: No erythema, No tenderness, No warmth Integumentary: Tenderness/swelling (Edema to the lower extremities improved) Neurological: Normal speech, Normal strength at 5/5 x4 extr, Normal tone, Normal affect - Studies Medications List Reviewed: Yes Assessment & Plan Discharge Plan: Home Plan to discharge in: 48 Hours Physician Review Additional Text: Impression: Edema to the lower extremities, pulmonary edema secondary to high output cardiac failure with noted small pericardial effusion likely inflammatory in nature and related to anemia, abnormal cardiac stress tests likely underlying CAD Chronic Nausea and vomiting with chronic constipation Diabetes mellitus type 2, A1c 6.1 Hypertension Obesity, BMI 32.8 GERD Anemia with noted iron and B12 deficiency Suspect underlying obstructive sleep apnea Anxiety Plan: Edema to the lower extremities, pulmonary edema secondary to high output cardiac failure with noted small pericardial effusion likely inflammatory in nature and related to anemia, abnormal cardiac stress tests likely underlying CAD: Echocardiogram reviewed. Cardiac stress tests abnormal. Spoke with cardiology. Cardiology plans for heart catheterization tomorrow. Patient likely with underlying CAD. Await further recommendations. Blood pressure slightly elevated. Will add low-dose metoprolol. Will continue to monitor hemoglobin closely. Pulmonology has adjusted medication. Patient no longer on [id number]. Aldactone added. Continue with diuresis. Will assess nausea and vomiting. GI series ordered. Patient will likely require GI evaluation as an outpatient. Lab obtained for autoimmune disease, hepatitis panel, and HIV. Will continue to reassess and monitor closely. I will turn the service over to Dr. Fisher tomorrow. I will go over the plan of care with her. Chronic Nausea and vomiting with chronic constipation: Patient with nausea and vomiting. Patient to have upper GI series to further evaluate. This may be related to FESTUS-inhibitor. Medication adjusted. Abdominal ultrasound and CT scan unremarkable. She has had bowel movements during her stay. Patient will likely require GI evaluation as an outpatient. Diabetes mellitus type 2, A1c 6.1: A1c well controlled at 6.1. Will continue sliding scale. Hypertension: Will add Metoprolol for better control. Will monitor and adjust appropriately. Obesity, BMI 32.8: Will continue to address lifestyle modification education. GERD: Will continue with PPI. Anemia with iron and B12 deficiency: Will monitor closely. No need for transfustion. Will continue to iron and B12 supplementation. Continue as above. Suspect underlying obstructive sleep apnea: Patient will need sleep study done as an outpatient. Anxiety: Will provide medication as needed Time Spent Managing Pts Care (In Minutes): 55
[2018-06-02] MEDS ORDERED: ALBUTEROL 2.5 MG/3 ML NEB SOL NEB ONE (17:08)
[2018-06-02] MEDS ORDERED: IPRATROPIUM BROM 0.5MG/2.5ML NEB ONE (17:09)
[2018-06-02] MEDS: METOPROLOL TAR 25 MG TAB PO SCH (17:34)
--- NOTE | 2018-06-02 17:45 | RAD REPORT ---
EXAM DESCRIPTION: RAD - Chest Single View - 06/02/2018 5:25 pm CLINICAL HISTORY: Shortness of breath COMPARISON: May 31 TECHNIQUE: AP portable chest image was obtained 1711 hours . FINDINGS: Lung volumes remain low. Progressive lung parenchymal process. Lung base opacification and lung base pleural fluid collections have improved. Heart and vasculature are normal. No pneumothorax . No acute bony abnormality seen. No acute aortic findings suspected. IMPRESSION: Partial clearing of bilateral lung base parenchymal opacification and pleural fluid.
[2018-06-02] MEDS: ATORVASTATIN 10 MG TAB PO SCH (21:13)
[2018-06-03] MEDS: NITROGLYCERIN 1 GM PKT TD SCH ×3 (05:41→17:14)
[2018-06-03] MEDS: METOPROLOL TAR 25 MG TAB PO SCH ×2 (05:42→17:13)
[2018-06-03] MEDS: TRAMADOL HCL 50 MG TAB PO PRN ×3 (05:42→22:14)
[2018-06-03] MEDS: PROMETHAZINE 25 MG/ML VIAL IV PRN ×2 (05:43→13:08)
[2018-06-03 05:57] LABS: Absolute Lymphocytes (CBC) 1.3 K/uL (0.7-4.9); Absolute Monocytes 0.6 K/uL (0.1-1.3); Absolute Neutrophil 3.6 K/uL (1.8-8.0); Eosinophils % 5.8 % (0-4.4); Hematocrit 26.9 % (36.0-45.0); Lymphocytes % 21.6 % (15.3-44.8); MPV 8.4 fL (7.6-11.3); Monocytes % 9.9 % (3.3-12.3); RBC Red Blood Cell Count 3.36 M/uL (3.86-4.86)
[2018-06-03 06:04] LABS: Potassium 4.2 mmol/L (3.5-5.1)
[2018-06-03 06:35] VITALS: BMI 36.6
[2018-06-03] MEDS ORDERED: HEPA 1000U/500MLS 2,000 UNIT/1,000 ML BAG IV ONE (07:20)
[2018-06-03] MEDS ORDERED: LIDOCAINE 1% MPF 30 ML VIAL ONE (07:21)
[2018-06-03] MEDS ORDERED: NA CHLORIDE 0.9% 0 ML ONE (07:24)
[2018-06-03] MEDS ORDERED: MIDAZOLAM HCL 2 MG/2 ML INJ ONE ×2 (07:27→08:24)
[2018-06-03] MEDS ORDERED: FENTANYL CITR 100 MCG/2 ML ONE (07:27)
[2018-06-03] MEDS ORDERED: HEPARIN 5000 UNIT/ML 1 ML VIAL ONE (07:27)
[2018-06-03] MEDS ORDERED: NICARDIPINE HCL 25 MG/10 ML IV ONE (07:28)
[2018-06-03] MEDS ORDERED: ATROPINE SULF 1 MG/10 ML SYR IV ONE (07:28)
[2018-06-03] MEDS ORDERED: NITROGLYCERIN/D5W 25 MG/250 ML BTL IV ONE (07:28)
[2018-06-03] MEDS ORDERED: NITROGLYCERIN 100 MCG/ML SYR (for cath lab use only) IV ONE (07:28)
[2018-06-03] MEDS: INSULIN -REGULAR HUMAN 50 UNIT/0.5 ML ML SQ SCH ×4 (07:30→21:00)
[2018-06-03] MEDS ORDERED: NA CHLORIDE 0.9% 500 ML ONE (08:12)
[2018-06-03] MEDS: FERROUS SULFATE 325 MG TAB PO SCH (09:00)
[2018-06-03] MEDS: FUROSEMIDE 40 MG/4 ML VIAL IV SCH ×2 (09:00→21:00)
[2018-06-03] MEDS: SPIRONOLACTONE 25 MG TABLET PO SCH ×2 (09:00→21:09)
[2018-06-03] MEDS: CYANOCOBALAMIN 1,000 MCG TAB PO SCH (09:00)
[2018-06-03] MEDS: PANTOPRAZOLE 40 MG INJ IVP SCH (09:00)
[2018-06-03] MEDS ORDERED: ACETAMINOPHEN 325 MG TABLET PO PRN (12:00)
[2018-06-03] MEDS ORDERED: NITROGLYCERIN 0.4 MG/TAB SL PRN (12:00)
[2018-06-03] MEDS ORDERED: NA CHLORIDE 0.9% 1,000 ML IV SCH (12:00)
--- NOTE | 2018-06-03 12:39 | P.PN ---
Subjective Date of Service: 06/03/18 Primary Care Provider: Dr. Thomas([place], [place]) Chief Complaint: Lower extremity edema shortness of breath Subjective: Improving (Patient has improved significantly status post cardiac catheterization according to the patient's relative no evidence of coronary artery disease edema has declined significantly) Review of Systems Respiratory: Cough Physical Examination - Vital Signs Temperature: 97.5 F Blood Pressure: 136/63 Pulse: 74 Respirations: 16 Pulse Ox (%): 97 - Physical Exam General: Alert, Oriented x3 HEENT: Atraumatic Neck: Supple Respiratory: Clear to auscultation bilaterally Cardiovascular: No edema, Regular rate/rhythm, Edema (2+ edema significant improvement) - Studies Medications List Reviewed: Yes Assessment & Plan - Problems (Diagnosis) (1) Lower extremity edema Current Visit: Yes Status: Acute Plan: Patient has improved significantly most likely diastolic dysfunction be discharged home on spironolactone 25 mg once or twice a day continue with the metoprolol Dc lisinopril cardiac catheterization was unremarkable as per patient official report pending room-air pulse ox Physician Review Additional Text: Impression: Edema to the lower extremities, pulmonary edema secondary to high output cardiac failure with noted small pericardial effusion likely inflammatory in nature and related to anemia, abnormal cardiac stress tests likely underlying CAD Chronic Nausea and vomiting with chronic constipation Diabetes mellitus type 2, A1c 6.1 Hypertension Obesity, BMI 32.8 GERD Anemia with noted iron and B12 deficiency Suspect underlying obstructive sleep apnea Anxiety Plan: Edema to the lower extremities, pulmonary edema secondary to high output cardiac failure with noted small pericardial effusion likely inflammatory in nature and related to anemia, abnormal cardiac stress tests likely underlying CAD: Echocardiogram reviewed. Cardiac stress tests abnormal. Spoke with cardiology. Cardiology plans for heart catheterization tomorrow. Patient likely with underlying CAD. Await further recommendations. Blood pressure slightly elevated. Will add low-dose metoprolol. Will continue to monitor hemoglobin closely. Pulmonology has adjusted medication. Patient no longer on [id number]. Aldactone added. Continue with diuresis. Will assess nausea and vomiting. GI series ordered. Patient will likely require GI evaluation as an outpatient. Lab obtained for autoimmune disease, hepatitis panel, and HIV. Will continue to reassess and monitor closely. I will turn the service over to Dr. Fisher tomorrow. I will go over the plan of care with her. Chronic Nausea and vomiting with chronic constipation: Patient with nausea and vomiting. Patient to have upper GI series to further evaluate. This may be related to FESTUS-inhibitor. Medication adjusted. Abdominal ultrasound and CT scan unremarkable. She has had bowel movements during her stay. Patient will likely require GI evaluation as an outpatient. Diabetes mellitus type 2, A1c 6.1: A1c well controlled at 6.1. Will continue sliding scale. Hypertension: Will add Metoprolol for better control. Will monitor and adjust appropriately. Obesity, BMI 32.8: Will continue to address lifestyle modification education. GERD: Will continue with PPI. Anemia with iron and B12 deficiency: Will monitor closely. No need for transfustion. Will continue to iron and B12 supplementation. Continue as above. Suspect underlying obstructive sleep apnea: Patient will need sleep study done as an outpatient. Anxiety: Will provide medication as needed
[2018-06-03 13:08] LABS: HIV 1/2 Antibody Diff Not indicated.; HIV AG/AB 4TH GEN Non-reactive (Non-reactive)
--- NOTE | 2018-06-03 17:54 | OP ---
Surgeon: Juan Brody MD Procedures: Left heart catheterization, coronary and left ventricular angiography. Findings: The patient has normal coronary arteries, normal left ventricular ejection fraction. She has mildly elevated left ventricular end-diastolic pressure at 16 mmHg. No aortic valve gradient. N o mitral regurgitation. Procedure In Detail: The patient was brought to the cardiac optical lab technician in a fasting state, sedated wit h Versed and fentanyl. Prepared and draped in usual sterile fashion. Right radial artery entered us ing a 21-gauge needle. The artery was cannulated using a 0.021 inch diameter guidewire. We then use d a 6-Kazakh radial Terumo sheath to stay in the artery. It was flushed and she was given a radial c ocktail consisting of heparin, nitroglycerin, and nicardipine. We used a TIG catheter, guided it to the ascending aorta using fluoroscopy and a Terumo Glidewire with a short radius J-tip. We were able to angiogram the left coronary only. We angiogrammed the left ventricle with a Paco catheter and t he Paco catheter could not cannulate the right, so we used a 3DRC and cannulated the right. At the end of the procedure, catheters were withdrawn over a wire. An exchange wire technique was used for each catheter exchange. At the end of the procedure, the sheath was flushed, removed, and closed wit h a TR band. Estimated Blood Loss: 10 cc. Applications Project Manager: Olga Lopez. Complications: None. ADONIS/MICHAEL Voice ID: [id number] Report ID: [id number]
--- NOTE | 2018-06-03 18:52 | P.PN ---
Subjective Date of Service: 06/03/18 Primary Care Provider: Dr. Thomas([place], [place]) Chief Complaint: Lower extremity edema shortness of breath Patient seen and examined at bedside with RN. Chart reviewed. Case discussed with cardiology at this time. Patient is status post cardiac catheterization. Cardiac catheterization does appear to be normal at this time. Review of Systems 10-point ROS is otherwise unremarkable Physical Examination - Vital Signs Temperature: 99.3 F Blood Pressure: 168/74 Pulse: 81 Respirations: 18 Pulse Ox (%): 92 - Physical Exam General: Alert, In no apparent distress HEENT: Atraumatic, PERRLA, EOMI Neck: Supple, JVD not distended Respiratory: Clear to auscultation bilaterally, Normal air movement Cardiovascular: Regular rate/rhythm, Normal S1 S2 Gastrointestinal: Normal bowel sounds, No tenderness Musculoskeletal: No tenderness Integumentary: No rashes Neurological: Normal speech, Normal tone, Normal affect Lymphatics: No axilla or inguinal lymphadenopathy - Studies Medications List Reviewed: Yes Assessment & Plan - Problems (Diagnosis) (1) CHF (congestive heart failure), NYHA class IV Current Visit: Yes Status: Acute Plan: Congestive heart failure and with pulmonary edema and lower extremity edema -cardiology consulted. Appreciated recommendations at this time -echocardiogram done consistent with diastolic dysfunction -cardiac stress test abnormal. Cardiac catheterization done today with no underlying coronary artery disease noted -patient to continue on low-dose metoprolol and aldosterone at this time. Lasix b.i.d. as well -patient with marked improvement at this time -stopped on Thom inhibitor lisinopril which improved his symptoms -anticipate discharge in next 24-48 hr Qualifiers: Congestive heart failure type: diastolic Congestive heart failure chronicity: acute on chronic Qualified Code(s): I50.33 - Acute on chronic diastolic (congestive) heart failure (2) Chronic nausea Current Visit: Yes Status: Acute Plan: Acute worsening of chronic nausea and vomiting with constipation most likely secondary to diabetic gastroparesis versus medication side effect -patient will most likely need outpatient GI workup. -THOM-inhibitor at this time. Marked improvement in his symptoms as well. (3) Diabetes mellitus Current Visit: Yes Status: Chronic Qualifiers: Diabetes mellitus type: type 2 Diabetes mellitus oysterman insulin use: without intermediate use Diabetes mellitus complication status: with unspecified complications Qualified Code(s): E11.8 - Type 2 diabetes mellitus with unspecified complications (4) HTN (hypertension) Current Visit: Yes Status: Chronic Qualifiers: Hypertension type: essential hypertension Qualified Code(s): I10 - Essential (primary) hypertension Discharge Plan: Home Plan to discharge in: 24 Hours - Code Status/Comfort Care Code Status Assessed: Yes
[2018-06-03 20:49] VITALS: O2SAT 96
[2018-06-03] MEDS: ATORVASTATIN 10 MG TAB PO SCH (21:09)
[2018-06-04] MEDS: NITROGLYCERIN 1 GM PKT TD SCH ×3 (00:07→12:30)
[2018-06-04 04:09] LABS: HBsAG Nonreactive (Nonreactive); Hepatitis A IgM Antibody Nonreactive
[2018-06-04] MEDS: METOPROLOL TAR 25 MG TAB PO SCH (05:42)
[2018-06-04] MEDS: TRAMADOL HCL 50 MG TAB PO PRN ×2 (05:46→12:31)
[2018-06-04] MEDS: PROMETHAZINE 25 MG/ML VIAL IV PRN ×2 (05:47→12:31)
[2018-06-04] MEDS: INSULIN -REGULAR HUMAN 50 UNIT/0.5 ML ML SQ SCH ×2 (07:30→12:31)
[2018-06-04] MEDS: FERROUS SULFATE 325 MG TAB PO SCH (08:20)
[2018-06-04] MEDS: CYANOCOBALAMIN 1,000 MCG TAB PO SCH (08:20)
[2018-06-04] MEDS: FUROSEMIDE 40 MG/4 ML VIAL IV SCH (08:21)
[2018-06-04] MEDS: SPIRONOLACTONE 25 MG TABLET PO SCH (08:21)
[2018-06-04] MEDS: PANTOPRAZOLE 40 MG INJ IVP SCH (08:21)
--- NOTE | 2018-06-04 11:13 | RAD REPORT ---
EXAM DESCRIPTION: RAD - Barium Swallow Modified - 06/04/2018 11:03 am CLINICAL HISTORY: Coughing and choking FINDINGS: Fluoroscopy time 2.2 minutes. Seventeen fluoroscopic spot series obtained Pharyngeal residue: Vallecular, min with nectar, honey, pudding, jenelle cracker. Mild esophageal stasis No supraglottic penetration nor aspiration seen
[2018-06-04 12:32] VITALS: BP 140/65
[2018-06-04 13:19] VITALS: TEMP 98.7
--- NOTE | 2018-06-04 16:44 | P.DS ---
Admission Date: 05/29/18 Discharge Date: 06/04/18 Primary Care Provider: Dr. Thomas([place], [place]) Disposition: ROUTINE DISCHARGE Discharge Condition: GOOD Reason for Admission: Lower extremity edema shortness of breath Consultations: Cardiology Procedures: Cardiac catheterization - Problems (1) CHF (congestive heart failure), NYHA class IV Status: Acute Qualifiers: Congestive heart failure type: diastolic Congestive heart failure chronicity: acute on chronic Qualified Code(s): I50.33 - Acute on chronic diastolic (congestive) heart failure (2) Chronic nausea Status: Acute (3) Diabetes mellitus Status: Chronic Qualifiers: Diabetes mellitus type: type 2 Diabetes mellitus long chain beamer insulin use: without long chain beamer use Diabetes mellitus complication status: with unspecified complications Qualified Code(s): E11.8 - Type 2 diabetes mellitus with unspecified complications (4) HTN (hypertension) Status: Chronic Qualifiers: Hypertension type: essential hypertension Qualified Code(s): I10 - Essential (primary) hypertension Brief History of Present Illness: Ms Meredith is a 63 years old woman with history of DM II, HTN, dyslipidemia, who start about 1 month ago with progressive SOB and lower extremity swelling. She has noticed that over the time, her activity was more limited because SOB, and lately she has had difficulty breathing even bed. She has been using about 5 pillows to sleep at night. Report heaviness chest pain episodes during the last month, elicited with activity and relieved with resting. The pain usually radiate to her left arm, and feel tingling in her fingers. No previous ECHO done. At arrival, she was dyspneic at rest, no chest pain, BP elevated, EKG shows SR at 80 bpm, with poor r progression in anterior leads. No ST-T abnormalities seen. ProBNP 6901. CXR with venous cephalization consistent with pulmonary edema. Hospital Course: Overall during the hospital stay patient remained stable Patient was initially admitted to the hospital for dyspnea and pulmonary edema along with lower extremity swelling. Cardiology was consulted. Patient was started on IV Lasix and Aldactone here with a presumed diagnosis of congestive heart failure. Patient had an echocardiogram done here which had preserved ejection fraction and dilated chambers giving a diagnosis of diastolic dysfunction. Patient had improvement in her symptoms after Lasix and Aldactone. Cardiology then recommended the patient get a stress test done which was abnormal thus patient had cardiac catheterization done which was within normal limits and no coronary artery disease was noted. Patient's swelling and pulmonary edema did improve on IV Lasix and Lasix was then switched over to oral. Patient was saturating well and had no further episode of dyspnea. While here in the hospital patient was also evaluated for her chronic nausea and cough. Patient initially was taking lisinopril for her blood pressure which was held here in the hospital. Eventually stopped. Patient's cough did get better however her nausea had not resolved. At that time a modified barium swallow was done which was consistent with pharyngeal residue along with mild esophageal stasis which both are consistent with long standing diabetes and most likely having esophageal motility disorder secondary to longstanding diabetes. At that time the patient and family member were educated extensively on the disease process and the importance to control diabetes through diet and exercise and controlling esophageal motility disorder through diet and exercise as well. Patient was also asked to follow up with the GI doctor on outpatient basis and even Shiley get an EGD and colonoscopy done. There was a concern for bleeding in the colon however patient's stool occult was negative along with hemoglobin was stable throughout the hospital stay. All other chronic conditions did remain stable while here in the hospital. Once patient had marked improvement in her symptoms patient was discharged home under stable condition and was given a followup appointment with GI and primary care doctor. Patient was asked to continue taking PO Lasix and Aldactone and was given a prescription for Protonix as well. Vital Signs/Physical Exam: Temp Pulse Resp BP Pulse Ox 98.7 F 75 16 140/65 96 06/04/18 12:00 06/04/18 12:30 06/04/18 12:00 06/04/18 12:30 06/04/18 12:00 General: Alert, In no apparent distress HEENT: Atraumatic, PERRLA, EOMI Neck: Supple, JVD not distended Respiratory: Clear to auscultation bilaterally, Normal air movement Cardiovascular: Regular rate/rhythm, Normal S1 S2 Gastrointestinal: Normal bowel sounds, No tenderness Musculoskeletal: No tenderness Integumentary: No rashes Neurological: Normal speech, Normal tone, Normal affect Lymphatics: No axilla or inguinal lymphadenopathy Laboratory Data at Discharge: WBC 5.8 K/uL (4.3-10.9) 06/03/18 05:38 Hgb 9.2 g/dL (12.0-15.0) L 06/03/18 05:38 Hct 26.9 % (36.0-45.0) L 06/03/18 05:38 Plt Count 253 K/uL (152-406) 06/03/18 05:38 PT 14.3 SECONDS (9.5-12.5) H 05/29/18 19:37 INR 1.21 05/29/18 19:37 Sodium 137 mmol/L (136-145) 06/03/18 05:38 Potassium 4.2 mmol/L (3.5-5.1) 06/03/18 05:38 BUN 25 mg/dL (7-18) H 06/03/18 05:38 Creatinine 1.05 mg/dL (0.55-1.3) 06/03/18 05:38 Glucose 142 mg/dL (74-106) H 06/03/18 05:38 Magnesium 2.0 mg/dL (1.8-2.4) 06/03/18 05:38 Total Bilirubin 0.3 mg/dL (0.2-1.0) 05/29/18 19:37 AST 16 U/L (15-37) 05/29/18 19:37 ALT 26 U/L (12-78) 05/29/18 19:37 Alkaline Phosphatase 84 U/L (45-117) 05/29/18 19:37 Triglycerides 126 mg/dL (<150) 05/30/18 04:46 Cholesterol 179 mg/dL (<200) 05/30/18 04:46 HDL Cholesterol 71 mg/dL (40-60) H 05/30/18 04:46 Cholesterol/HDL Ratio 2.52 05/30/18 04:46 Home Medications: Gabapentin [Neurontin*] 100 mg PO TID PRN 05/30/18 Glipizide [Glucotrol] 10 mg PO BID 05/30/18 Metformin HCl [Glucophage] 1,000 mg PO BID 05/30/18 Pravastatin Sodium 40 mg PO DAILY 05/30/18 Furosemide [Lasix] 40 mg PO BID #60 tablet 06/04/18 Metoprolol Tartrate [Lopressor*] 12.5 mg PO BID 6AM 6PM #60 tab 06/04/18 Pantoprazole Sodium [Protonix] 40 mg PO BID #60 tablet. 06/04/18 Spironolactone [Aldactone*] 25 mg PO BID #60 tab 06/04/18 New Medications: Furosemide [Lasix] 40 mg PO BID #60 tablet Metoprolol Tartrate [Lopressor*] 12.5 mg PO BID 6AM 6PM #60 tab Pantoprazole Sodium [Protonix] 40 mg PO BID #60 tablet. Spironolactone [Aldactone*] 25 mg PO BID #60 tab Patient Discharge Instructions: Please F.u with GI and PCP in 1 to 2 week post discharge. You will need to get EGD done to evaluate for phargenal Residue and Esophageal Stasis. New medication. Aldactone 25mg Daily. Lasix 40mg BID. Protonix 40mg BID Diet: Regular Activity: Ad olesya Followup: Juan Brody MD [ACTIVE - CAN ADMIT] - 1 Week (call to schedule appointment) Italo Dixon MD [ASSOCIATE-ACTIVE - CAN ADMIT] - 1 Week (call to schedule appointment)
--- NOTE | 2018-06-05 00:51 | PN ---
Admitted to Dr. Fisher's service on 05/29/2018 for congestive heart failure. Dr. Brody performed a h eart catheterization on 06/03/2018 showing normal coronaries. The diagnosis is diastolic congestive heart failure. She is on beta-ronald and Aldactone. She is off FESTUS inhibitors. She has been seen by Dr. Ly. The patient is asymptomatic. Her right wrist entry site for the catheterization is intact with good pulses. No hematoma. Telemetry is normal. Certainly from a cardiac standpoint, t he patient can go home whenever it is okay with Dr. Fisher and we will see her as an outpatient. Tiffany akers expressed interest in having her see a fisher pot because of anemia and I will leave furth er workup up to Dr. Fisher. NICKIE/MICHAEL Voice ID: [id number] Report ID: [id number]
== END 2018-06-04 15:21 | disposition home or self-care (01) | DRG 287 ==
LOC: ER 18:23 → ERHOLD 21:20 → 4TH 22:06
PROVIDERS: ADMIT Internal Medicine; ATTEND Family Medicine
PROC: 4A023N7 Measurement of Cardiac Sampling and Pressure, Left Heart, Percutaneous Approach (ICD-10-PCS; principal; 2018-06-03)
PROC: B211YZZ Fluoroscopy of Multiple Coronary Arteries using Other Contrast (ICD-10-PCS; 2018-06-03)
PROC: B215YZZ Fluoroscopy of Left Heart using Other Contrast (ICD-10-PCS; 2018-06-03)
DX: I11.0 Hypertensive heart disease with heart failure (principal); I31.3 Pericardial effusion (noninflammatory); I50.33 Acute on chronic diastolic (congestive) heart failure; E11.8 Type 2 diabetes mellitus with unspecified complications; E78.5 Hyperlipidemia, unspecified; Z88.0 Allergy status to penicillin; Z79.84 Long term (current) use of oral hypoglycemic drugs; R11.2 Nausea with vomiting, unspecified; K59.09 Other constipation; E66.9 Obesity, unspecified; Z68.32 Body mass index [BMI] 32.0-32.9, adult; K21.9 Gastro-esophageal reflux disease without esophagitis; D50.9 Iron deficiency anemia, unspecified; F41.9 Anxiety disorder, unspecified; G47.33 Obstructive sleep apnea (adult) (pediatric); D63.8 Anemia in other chronic diseases classified elsewhere; E11.43 Type 2 diabetes mellitus with diabetic autonomic (poly)neuropathy; K31.84 Gastroparesis
CPT/HCPCS: 36415; 71045; 71046; 71275; 74018; 74177; 74230; 76700; 78452; 80048; 80061; 80074; 80076; 81001; 82607; 82728; 82962; 83036; 83540; 83735; 83880; 84443; 84466; 84484; 85025; 85610; 85652; 86038; 87389; 90670; 92611; 93005; 93017; 93306; 93458; 94640; 94760; 96374; 96375; 97112; 97116; 97163; 97530; 99285; A9500; C1893; C9113; G0009; J0360; J0583; J1644; J1650; J1940; J2250; J2405; J2550; J2785; J3010; J3420; Q9967

== ENCOUNTER 2018-06-07 18:32 | Inpatient (IN) | payer SELFPAY ==
[2018-06-07 18:57] LABS: Absolute Lymphocytes (CBC) 1.8 K/uL (0.7-4.9); Absolute Monocytes 0.7 K/uL (0.1-1.3); Basophils % 1.1 % (0-1.3); Eosinophils % 1.6 % (0-4.4); Hematocrit 31.7 % (36.0-45.0); Lymphocytes % 22.9 % (15.3-44.8); MPV 8.4 fL (7.6-11.3); Monocytes % 8.6 % (3.3-12.3); RBC Red Blood Cell Count 3.95 M/uL (3.86-4.86)
[2018-06-07 19:00] LABS: Protime INR 1.21
[2018-06-07] MEDS ORDERED: FUROSEMIDE 40 MG/4 ML VIAL ONE (19:15)
[2018-06-07] MEDS ORDERED: NITROGLYCERIN 1 GM PKT TD ONE (19:15)
[2018-06-07 19:16] LABS: Albumin 3.3 g/dL (3.4-5.0); Bilirubin Direct 0.1 mg/dL (0-0.2); Bilirubin Total 0.4 mg/dL (0.2-1.0); Magnesium 1.8 mg/dL (1.8-2.4); Potassium 3.8 mmol/L (3.5-5.1); Protein, Total 7.5 g/dL (6.4-8.2); Troponin (Emerg Dept Use Only) 0.32 ng/mL (0.0-0.045)
[2018-06-07] MEDS ORDERED: MORPHINE 4 MG/ML SYR ONE (19:41)
[2018-06-07] MEDS ORDERED: ONDANSETRON 4 MG/2 ML VIAL ONE (19:41)
--- NOTE | 2018-06-07 20:00 | RAD REPORT ---
EXAM DESCRIPTION: RAD - Chest Single View - 06/07/2018 7:38 pm CLINICAL HISTORY: CHEST PAIN Chest pain. COMPARISON: Chest Single View dated 06/02/2018; Abdomen 1 View (KUB) dated 06/01/2018; Chest Pa And La t (2 Views) dated 05/31/2018; Chest Pa And Lat (2 Views) dated 05/30/2018 FINDINGS: Portable technique limits examination quality. The lungs are grossly clear. Mild elevation the right hemidiaphragm noted. The heart is mildly enlarg ed in size. IMPRESSION: No acute intrathoracic process suspected.
[2018-06-07] MEDS ORDERED: PANTOPRAZOLE 40 MG INJ ONE (21:01)
[2018-06-07] MEDS ORDERED: LIDOCAINE VISCOUS 2% SOLN 15 ML UDC ONE (21:29)
[2018-06-07] MEDS ORDERED: MAGNE/ALUM HYDROXD 30 ML UCUP ONE (21:29)
--- NOTE | 2018-06-07 22:04 | EDPHYS ---
Physician Documentation [facility] Name: Abby Meredith Age: 63 yrs Sex: Female : 1955 Arrival Date: 06/07/2018 Time: 18:41 Bed 2 Private MD: ED Physician Zachery Fishman HPI: 06/07 19:00 This 63 yrs old Female presents to ER via EMS with complaints of Shortness Of pm1 Breath. 19:00 The patient has shortness of breath at rest. pm1 19:00 Onset: The symptoms/episode began/occurred 3 week(s) ago. Duration: The symptoms are pm1 continuous. The patient's shortness of breath is aggravated by light activity, is alleviated by nothing. Associated signs and symptoms: Pertinent positives: chest pain, Pertinent negatives: non-productive cough, productive cough, fever. Severity of symptoms: in the emergency department the symptoms are worse. The patient has been recently been admitted at [facility], discharged on 06/04/2017 with diagnosis of CHF, Diabetes, HTN. Patient reports shortness of breath improved during hospitalization. Discharged on 06/04/2017, reports shortness of breath increased over the past few days. Has burning chest pain onset today. Pain to bilateral lower extremities. Historical: - Allergies: 18:43 PENICILLINS; bp - Home Meds: 18:43 gabapentin Oral [Active]; bp 18:48 Glipizide Oral [Active]; Lasix Oral [Active]; bp 18:52 pravastatin oral oral [Active]; Metformin Oral [Active]; bp - PMHx: 18:43 Diabetes - IDDM; Hyperlipidemia; Hypertension; CHF; bp - Immunization history:: Adult Immunizations up to date. - Social history:: Smoking status: Patient/guardian denies using tobacco. - Ebola Screening: : Patient negative for fever greater than or equal to 101.5 degrees Fahrenheit, and additional compatible Ebola Virus Disease symptoms Patient denies exposure to infectious person Patient denies travel to an Ebola-affected area in the 21 days before illness onset No symptoms or risks identified at this time. ROS: 19:00 Constitutional: Negative for fever, chills, and weight loss, Eyes: Negative for injury, pm1 pain, redness, and discharge, ENT: Negative for injury, pain, and discharge, Neck: Negative for injury, pain, and swelling, Abdomen/GI: Negative for abdominal pain, nausea, vomiting, diarrhea, and constipation. 19:00 Back: Negative for injury and pain, : Negative for injury, bleeding, discharge, and swelling, Skin: Negative for injury, rash, and discoloration, Neuro: Negative for headache, weakness, numbness, tingling, and seizure. 19:00 Cardiovascular: Positive for chest pain, edema, Negative for palpitations. 19:00 Respiratory: Positive for shortness of breath. 19:00 MS/extremity: Positive for pain, of the right lower leg and left lower leg, Negative for decreased range of motion, deformity. Exam: 19:00 Constitutional: This is a well developed, well nourished patient who is awake, alert, pm1 and in no acute distress. Head/Face: Normocephalic, atraumatic. Eyes: Pupils equal round and reactive to light, extra-ocular motions intact. Lids and lashes normal. Conjunctiva and sclera are non-icteric and not injected. Cornea within normal limits. Periorbital areas with no swelling, redness, or edema. ENT: Nares patent. No nasal discharge, no septal abnormalities noted. Tympanic membranes are normal and external auditory canals are clear. Oropharynx with no redness, swelling, or masses, exudates, or evidence of obstruction, uvula midline. Mucous membranes moist. Neck: Trachea midline, no thyromegaly or masses palpated, and no cervical lymphadenopathy. Supple, full range of motion without nuchal rigidity, or vertebral point tenderness. No Meningismus. Chest/axilla: Normal chest wall appearance and motion. Nontender with no deformity. No lesions are appreciated. Cardiovascular: Regular rate and rhythm with a normal S1 and S2. No gallops, murmurs, or rubs. No pulse deficits. Abdomen/GI: Soft, non-tender, with normal bowel sounds. No distension or tympany. No guarding or rebound. No evidence of tenderness throughout. Back: No spinal tenderness. No costovertebral tenderness. Full range of motion. 19:00 Skin: Warm, dry with normal turgor. Normal color with no rashes, no lesions, and no evidence of cellulitis. Painful to light touch on bilateral lower extremities - sylvester MS/ Extremity: Pulses equal, no cyanosis. Neurovascular intact. Full, normal range of motion. 19:00 Cardiovascular: Edema: pedal edema, that is mild bilaterally. 19:00 Respiratory: the patient does not display signs of respiratory distress, Respirations: normal, Breath sounds: decreased breath sounds, are located in both bases. 19:00 Neuro: Orientation: is normal, Motor: is normal, moves all fours, Sensation: is normal, no obvious gross deficits. 19:00 Psych: Behavior/mood is anxious, Affect is animated, Oriented to person, place, time. Vital Signs: 18:30 BP 175 / 85; Pulse 90; Resp 14; Temp 98.9; Pulse Ox 100% ; Weight 81.65 kg; bp 18:45 BP 180 / 70; Pulse 85; Resp 20; Pulse Ox 100% ; bp 19:30 BP 176 / 80; Pulse 80; Resp 18; Pulse Ox 99% on R/A; ea 20:15 BP 145 / 77; Pulse 85; Resp 18; Pulse Ox 98% ; ea 21:03 BP 112 / 75; Pulse 83; Resp 19; Pulse Ox 98% on R/A; ea 22:10 BP 101 / 62; Pulse 78; Resp 18; Pulse Ox 98% ; ea 23:24 BP 124 / 88; Pulse 79; Resp 16; Pulse Ox 99% ; ea 06/08 00:50 BP 150 / 67; Pulse 81; Resp 18; Pulse Ox 100% on R/A; mw2 01:03 Temp 99.4(O); rr5 MDM: 06/07 18:45 Patient medically screened. lucio 21:04 Data reviewed: vital signs. Data interpreted: Pulse oximetry: on room air is 98 %. pm1 Interpretation: normal. Counseling: I had a detailed discussion with the patient and/or guardian regarding: the historical points, exam findings, and any diagnostic results supporting the discharge/admit diagnosis, lab results, radiology results. 22:01 Physician consultation: Lauren Patiño MD was called at 22:01, was contacted at 22:01, pm1 regarding admission, patient's condition, and will see patient. 06/07 18:44 Order name: Basic Metabolic Panel; Complete Time: 19:18 bp 06/07 18:44 Order name: CBC with Diff; Complete Time: 19:18 bp 06/07 18:44 Order name: LFT's; Complete Time: 19:18 bp 06/07 18:44 Order name: Magnesium; Complete Time: 19:18 bp 06/07 18:44 Order name: NT PRO-BNP; Complete Time: 19:18 bp 06/07 18:44 Order name: PT-INR; Complete Time: 19:18 bp 06/07 18:44 Order name: Troponin (emerg Dept Use Only); Complete Time: 19:18 bp 06/08 00:43 Order name: CBC with Automated Diff EDMS 06/08 00:43 Order name: CBC with Automated Diff EDMS 06/08 00:43 Order name: Comprehensive Metabolic Panel EDMS 06/08 00:43 Order name: Comprehensive Metabolic Panel EDMS 06/08 00:43 Order name: Magnesium EDMS 06/08 00:44 Order name: Magnesium EDMS 06/08 00:44 Order name: Phosphorus EDMS 06/07 18:44 Order name: XRAY Chest (1 view); Complete Time: 20:17 bp 06/07 18:44 Order name: EKG; Complete Time: 18:45 bp 06/07 18:44 Order name: Cardiac monitoring; Complete Time: 18:45 bp 06/07 18:44 Order name: EKG - Nurse/Tech; Complete Time: 18:45 bp 06/07 18:44 Order name: IV Saline Lock; Complete Time: 18:45 bp 06/07 18:44 Order name: Labs collected and sent; Complete Time: 18:46 bp 06/08 00:43 Order name: Heart Healthy EDMS 06/08 00:44 Order name: Phosphorus EDMS 06/08 00:53 Order name: Troponin (emerg Dept Use Only) bb 06/08 00:54 Order name: Troponin (Emerg Dept Use Only) EDMS 06/07 18:44 Order name: O2 Per Protocol; Complete Time: 18:46 bp 06/07 18:44 Order name: O2 Sat Monitoring; Complete Time: 18:46 bp Administered Medications: 19:06 Drug: Nitro-Bid Ointment 2 % 1 inches Route: Transdermal; Site: anterior chest wall; ea 19:30 Follow up: Response: No adverse reaction; Pain is unchanged, physician notified ea 19:30 Drug: Zofran 4 mg Route: IVP; Site: left wrist; ea 21:02 Follow up: Response: No adverse reaction; Marked relief of symptoms ea 19:35 Drug: morphine 4 mg Route: IVP; Site: left wrist; ea 20:00 Follow up: Response: No adverse reaction; Pain is increased ea 19:41 Drug: Lasix 40 mg Route: IVP; Site: left wrist; ea 20:00 Follow up: Response: No adverse reaction ea 20:57 Drug: ProTONIX 40 mg Route: IVP; Site: left wrist; ea 21:23 Follow up: Response: No adverse reaction ea 21:22 Drug: GI Cocktail without - (Maalox Suspension 30 ml, Lidocaine Liquid 2 % 15 ea ml) Route: PO; 22:12 Follow up: Response: No adverse reaction ea Disposition: 06/08 07:15 Co-signature as Attending Physician, Zachery Fishman MD I agree with the assessment and lucio plan of care. Disposition: 06/07/18 22:03 Hospitalization ordered by Lauren Patiño for Observation. Preliminary diagnosis are Acute on chronic diastolic (congestive) heart failure, Dyspnea. - Bed requested for Telemetry/MedSurg (observation). - Status is Observation. ea - Condition is Stable. - Problem is new. - Symptoms have improved. UTI on Admission? No Signatures: Dispatcher [employer] EDAL Zachery Fishman MD MD cha Page, Corey, PA PA cp Demetri Diehl, USER EXPERIENCE MANAGER USER EXPERIENCE MANAGER pm1 Loni Cabrales RN RN Aldo Love RN RN bp Corrections: (The following items were deleted from the chart) 06/07 22:23 22:03 Hospitalization Ordered by Lauren Patiño MD for Observation. Preliminary cp diagnosis is Acute on chronic diastolic (congestive) heart failure; Dyspnea. Bed requested for Telemetry/MedSurg (observation). Status is Observation. Condition is Stable. Problem is new. Symptoms have improved. UTI on Admission? No. pm1 06/08 01:13 06/07 22:23 06/07/2018 22:03 Hospitalization Ordered by Lauren Patiño MD for ea Observation. Preliminary diagnosis is Acute on chronic diastolic (congestive) heart failure; Dyspnea. Bed requested for Telemetry/MedSurg (observation). Status is Observation. Condition is Stable. Problem is new. Symptoms have improved. UTI on Admission? No. cp
--- NOTE | 2018-06-07 22:04 | ER ---
Nurse's Notes [facility] Name: Abby Meredith Age: 63 yrs Sex: Female : 1955 Arrival Date: 06/07/2018 Time: 18:41 Bed 2 Private MD: Diagnosis: Acute on chronic diastolic (congestive) heart failure;Dyspnea Presentation: 06/07 18:41 Presenting complaint: EMS states: INCREASING SOB FOR THREE WEEKS. Transition of care: bp patient was not received from another setting of care. Onset of symptoms is unknown. Risk Assessment: Do you want to hurt yourself or someone else? Patient reports no desire to harm self or others. Initial Sepsis Screen: Does the patient meet any 2 criteria? No. Patient's initial sepsis screen is negative. Does the patient have a suspected source of infection? No. Patient's initial sepsis screen is negative. Care prior to arrival: None. 18:41 Method Of Arrival: EMS: [facility] bp 18:41 Acuity: TOMASA 2 bp Triage Assessment: 18:30 General: Appears in no apparent distress. uncomfortable, obese, Behavior is bp cooperative, appropriate for age, anxious. Pain: Complains of pain in chest, right leg and left leg. EENT: No deficits noted. Neuro: Level of Consciousness is awake, alert, obeys commands, Oriented to person, place, time, situation, Appropriate for age. Cardiovascular: Rhythm is sinus rhythm. Respiratory: Reports shortness of breath at rest Onset: The symptoms/episode began/occurred at an unknown time. the patient has mild shortness of breath. GI: No signs and/or symptoms were reported involving the gastrointestinal system. : No signs and/or symptoms were reported regarding the genitourinary system. Derm: No deficits noted. Musculoskeletal: Swelling present in right leg and left leg. Historical: - Allergies: 18:43 PENICILLINS; bp - Home Meds: 18:43 gabapentin Oral [Active]; bp 18:48 Glipizide Oral [Active]; Lasix Oral [Active]; bp 18:52 pravastatin oral oral [Active]; Metformin Oral [Active]; bp - PMHx: 18:43 Diabetes - IDDM; Hyperlipidemia; Hypertension; CHF; bp - Immunization history:: Adult Immunizations up to date. - Social history:: Smoking status: Patient/guardian denies using tobacco. - Ebola Screening: : Patient negative for fever greater than or equal to 101.5 degrees Fahrenheit, and additional compatible Ebola Virus Disease symptoms Patient denies exposure to infectious person Patient denies travel to an Ebola-affected area in the 21 days before illness onset No symptoms or risks identified at this time. Screenin:41 Abuse screen: Denies threats or abuse. Nutritional screening: No deficits noted. ea Tuberculosis screening: No symptoms or risk factors identified. Fall Risk None identified. Assessment: 19:00 General: Appears uncomfortable, Behavior is agitated, anxious, restless. Pain: ea Complains of pain in left leg and right leg and chest. Neuro: Level of Consciousness is awake, alert, obeys commands, Oriented to person, place, time, situation. Cardiovascular: Patient's skin is warm and dry. Respiratory: Airway is patent Respiratory effort is even, unlabored, Respiratory pattern is regular, symmetrical, Breath sounds are coarse bilaterally. GI: Abdomen is non-distended. : No signs and/or symptoms were reported regarding the genitourinary system. Derm: Skin is pink, warm \T\ dry. 19:51 Reassessment: pt crying states she is having a sharp stabbing pain to her chest P bb Shanita EXECUTIVE ADMINISTRATOR notified. 20:15 Reassessment: Patient and/or family updated on plan of care and expected duration. Pain ea level reassessed. Patient is alert, oriented x 3, equal unlabored respirations, skin warm/dry/pink. Patient states symptoms have improved. 21:00 Reassessment: Patient and/or family updated on plan of care and expected duration. Pain ea level reassessed. Patient is alert, oriented x 3, equal unlabored respirations, skin warm/dry/pink. Patient states symptoms have improved. 22:10 Reassessment: Patient and/or family updated on plan of care and expected duration. Pain ea level reassessed. Patient is alert, oriented x 3, equal unlabored respirations, skin warm/dry/pink. Patient states symptoms have improved. 23:04 Reassessment: Patient and/or family updated on plan of care and expected duration. Pain ea level reassessed. Patient is alert, oriented x 3, equal unlabored respirations, skin warm/dry/pink. Awaiting on floor orders Patient states symptoms have improved. 06/08 00:30 Reassessment: Patient and/or family updated on plan of care and expected duration. Pain ea level reassessed. Patient is alert, oriented x 3, equal unlabored respirations, skin warm/dry/pink. Awaiting on physician orders. Vital Signs: 06/07 18:30 BP 175 / 85; Pulse 90; Resp 14; Temp 98.9; Pulse Ox 100% ; Weight 81.65 kg; bp 18:45 BP 180 / 70; Pulse 85; Resp 20; Pulse Ox 100% ; bp 19:30 BP 176 / 80; Pulse 80; Resp 18; Pulse Ox 99% on R/A; ea 20:15 BP 145 / 77; Pulse 85; Resp 18; Pulse Ox 98% ; ea 21:03 BP 112 / 75; Pulse 83; Resp 19; Pulse Ox 98% on R/A; ea 22:10 BP 101 / 62; Pulse 78; Resp 18; Pulse Ox 98% ; ea 23:24 BP 124 / 88; Pulse 79; Resp 16; Pulse Ox 99% ; ea 06/08 00:50 BP 150 / 67; Pulse 81; Resp 18; Pulse Ox 100% on R/A; mw2 01:03 Temp 99.4(O); rr5 ED Course: 06/07 18:41 Patient arrived in ED. bp 18:42 Triage completed. bp 18:44 Michelle Hernandez, BLAIR is Primary Nurse. aj 18:45 Demetri Diehl NP is PHCP. pm1 18:45 Zachery Fishman MD is Attending Physician. pm1 18:45 Inserted saline lock: 22 gauge in right hand, using aseptic technique. Blood collected. aj 19:00 Inserted saline lock: 22 gauge in left wrist, using aseptic technique. ea 19:00 Patient has correct armband on for positive identification. Bed in low position. Call ea light in reach. Side rails up X2. 19:01 Arm band placed on. bp 19:37 XRAY Chest (1 view) In Process Unspecified. EDMS 22:01 Lauren Patiño MD is Hospitalizing Provider. pm1 22:11 No provider procedures requiring assistance completed. Patient admitted, IV remains in ea place. 06/08 01:05 Repeat lab(s) drawn. by ED staff, sent to lab. bb Administered Medications: 06/07 19:06 Drug: Nitro-Bid Ointment 2 % 1 inches Route: Transdermal; Site: anterior chest wall; ea 19:30 Follow up: Response: No adverse reaction; Pain is unchanged, physician notified ea 19:30 Drug: Zofran 4 mg Route: IVP; Site: left wrist; ea 21:02 Follow up: Response: No adverse reaction; Marked relief of symptoms ea 19:35 Drug: morphine 4 mg Route: IVP; Site: left wrist; ea 20:00 Follow up: Response: No adverse reaction; Pain is increased ea 19:41 Drug: Lasix 40 mg Route: IVP; Site: left wrist; ea 20:00 Follow up: Response: No adverse reaction ea 20:57 Drug: ProTONIX 40 mg Route: IVP; Site: left wrist; ea 21:23 Follow up: Response: No adverse reaction ea 21:22 Drug: GI Cocktail without - (Maalox Suspension 30 ml, Lidocaine Liquid 2 % 15 ea ml) Route: PO; 22:12 Follow up: Response: No adverse reaction ea Outcome: 22:03 Decision to Hospitalize by Provider. pm1 22:30 Instructed on the need for admit. ea 06/08 01:04 Admitted to Tele accompanied by tech, family with patient, via stretcher, room 420, bb Report called to Lara PINTO Condition: stable 01:13 Patient left the ED. ea Signatures: Dispatcher [employer] EDMS Michelle Hernandez RN RN aj Ballard, Brenda RN RN bb Demetri Diehl, SHANNON EXECUTIVE ADMINISTRATOR pm1 Loni Cabrales RN RN ea Peltier, Brian RN BLAIR Thomas Khan mw2 Cem Cornejo, RN RN rr5 Corrections: (The following items were deleted from the chart) 00:30 01 23:04 Reassessment: Patient and/or family updated on plan of care and expected ea duration. Pain level reassessed. Patient is alert, oriented x 3, equal unlabored respirations, skin warm/dry/pink. Patient states symptoms have improved. ea
[2018-06-08] MEDS ORDERED: ACETAMINOPHEN 500 MG TAB PO PRN (00:39)
[2018-06-08] MEDS ORDERED: ALPRAZOLAM 0.25 MG TABLET PO PRN (00:39)
[2018-06-08] MEDS ORDERED: MAGNESIUM HYDROXIDE 8% 30 ML PO PRN (00:39)
[2018-06-08] MEDS ORDERED: ONDANSETRON 4 MG/2 ML VIAL IV PRN (00:39)
[2018-06-08] MEDS ORDERED: GABAPENTIN 100 MG CAP PO PRN (00:42)
[2018-06-08] MEDS ORDERED: NA CHLORIDE 0.9% 1,000 ML IV SCH (01:00)
[2018-06-08 01:44] VITALS: BMI 35.4
[2018-06-08] MEDS ORDERED: MORPHINE 4 MG/ML SYR IV ONE (01:56)
[2018-06-08] MEDS: IPRATROPIUM BROM 0.5MG/2.5ML NEB SCH ×3 (02:51→13:49)
[2018-06-08] MEDS: ALBUTEROL 2.5 MG/3 ML NEB SOL NEB SCH ×3 (02:51→13:49)
[2018-06-08] MEDS: METOPROLOL TAR 25 MG TAB PO SCH ×2 (05:40→17:58)
[2018-06-08] MEDS: PANTOPRAZOLE 40MG TABLET PO SCH ×2 (05:41→17:58)
[2018-06-08 06:23] LABS: Urine Appearance CLEAR; Urine Bilirubin NEGATIVE (NEG); Urine Blood NEGATIVE (NEG); Urine Color YELLOW; Urine Glucose NEGATIVE (NEG); Urine Protein 2+ (NEG); Urine Specific Gravity <=1.005 (1.005-1.030); Urine Urobilinogen 0.2 mg/dL (0.2-1.0)
--- NOTE | 2018-06-08 06:26 | EKG ---
Test Date: 2018-06-07 Test Time: 18:39:45 Cloth Edge Singer: BASIM MEASUREMENT RESULTS: Intervals: Rate: 86 PA: 160 QRSD: 116 QT: 394 QTc: 471 [place]: P: 32 PA: 160 QRS: -48 T: 86 INTERPRETIVE STATEMENTS: Normal sinus rhythm Left axis deviation Anterior infarct, age undetermined Intraventricular conduction delay Abnormal ECG Compared to ECG 05/30/2018 22:16:06 Left-axis deviation now present Myocardial infarct finding still present Electronically Signed On 06-08-18 06:18:34 LIDAR SCIENTIST by Juan Brody
[2018-06-08 06:29] LABS: Urine Microscopic Reflex ORDER UMIC
[2018-06-08 06:36] LABS: Urine Bacteria 20-50 /HPF (<20); Urine RBC NONE SEEN /HPF (NONE SEEN)
[2018-06-08 06:37] LABS: Urine Culture Reflex Order REFLEXED
[2018-06-08] MEDS ORDERED: METFORMIN HCL 500 MG TAB PO SCH (08:00)
[2018-06-08] MEDS: glipiZIDE 5 MG TAB PO SCH ×2 (08:04→17:59)
[2018-06-08] MEDS ORDERED: ATORVASTATIN 10 MG TAB PO SCH (09:00)
[2018-06-08] MEDS ORDERED: ENOXAPARIN 40 MG/0.4 ML SQ SCH (09:00)
[2018-06-08] MEDS: FUROSEMIDE 40 MG TABLET PO SCH ×2 (09:44→17:57)
[2018-06-08] MEDS: SPIRONOLACTONE 25 MG TABLET PO SCH ×2 (09:44→17:59)
--- NOTE | 2018-06-08 10:19 | P.HP ---
Certification for Inpatient Patient admitted to: Inpatient With expected LOS: >2 Midnights Patient will require the following post-hospital care: None Practitioner: I am a practitioner with admitting privileges, knowledge of patient current condition, hospital course, and medical plan of care. Services: Services provided to patient in accordance with Admission requirements found in Title 42 Section 412.3 of the Code of Federal Regulations Patient History Date of Service: 06/08/18 Reason for admission: Shortness of breath; UTI; generalized pain History of Present Illness: Patient is a 63-year-old female came into the hospital with difficulty breathing. Patient states it has been going on for the last few weeks. It comes and goes. This is exacerbated with minimal activity. She has some chest discomfort as well. She was in the hospital less than a week ago with similar complaints. Since her discharge a couple of days ago her symptoms have worsened. She is also having pain to her lower extremity. She will be admitted to the hospital for further workup. In the emergency room she had Dopplers and CT scans which were negative. Seems to have some generalized anxiety as well. She may benefit from and anxiolytics. Will accounting officer some pain medication and admit her to the hospital for further workup. Allergies Penicillins Allergy (Severe, Verified 12/31/11 11:04) Anaphylaxis Home Medications: Glipizide [Glucotrol] 10 mg PO BID 05/30/18 Metformin HCl [Glucophage] 1,000 mg PO BID 05/30/18 Furosemide [Lasix] 40 mg PO BID #60 tablet 06/04/18 Metoprolol Tartrate [Lopressor*] 12.5 mg PO BID 6AM 6PM #60 tab 06/04/18 Pantoprazole Sodium [Protonix] 40 mg PO BID #60 tablet. 06/04/18 Spironolactone [Aldactone*] 25 mg PO BID #60 tab 06/04/18 Pravastatin Sodium 40 mg PO DAILY 06/08/18 - Past Medical/Surgical History Has patient received pneumonia vaccine in the past: Yes Diabetic: Yes -: HTN -: DM II -: obesity -: dyslipidemia -: CHF -: spider bite at least ten yearas ago -: hernia repair X 2 -: appendectomy - Family History Mother Medical History: Diabetes, Kidney disease - Social History Smoking Status: Never smoker Alcohol use: No Caffeine use: Yes Place of Residence: Home Review of Systems 10-point ROS is otherwise unremarkable Physical Examination - Vital Signs Temperature: 97.6 F Blood Pressure: 109/52 Pulse: 68 Respirations: 18 Pulse Ox (%): 98 - Physical Exam General: Alert, In no apparent distress, Oriented x3 HEENT: Atraumatic, PERRLA, Mucous membr. moist/pink, EOMI, Sclerae nonicteric Neck: Supple, 2+ carotid pulse no bruit, No LAD, Without JVD or thyroid abnormality Respiratory: Diminished, Other (Basilar crackles) Cardiovascular: Regular rate/rhythm, Normal S1 S2, Systolic murmur Gastrointestinal: Normal bowel sounds, Soft and benign, Non-distended, No tenderness Musculoskeletal: No clubbing, No tenderness, Swelling Integumentary: No rashes Neurological: Normal gait, Normal speech, Normal strength at 5/5 x4 extr, Normal tone, Sensation intact, Cranial nerves 3-12 intact, Normal affect Lymphatics: No axilla or inguinal lymphadenopathy - Studies Laboratory Data (last 24 hrs) 06/07/18 18:48: PT 14.3 H, INR 1.21 06/07/18 18:48: WBC 7.7 D, Hgb 10.6 L, Hct 31.7 L D, Plt Count 261 06/07/18 18:48: Sodium 138, Potassium 3.8, BUN 17, Creatinine 1.23, Glucose 117 H, Magnesium 1.8, Total Bilirubin 0.4, AST 20, ALT 24, Alkaline Phosphatase 83 Assessment & Plan - Problems (Diagnosis) (1) CHF (congestive heart failure), NYHA class IV Current Visit: No Status: Acute Qualifiers: (2) Lower extremity edema Current Visit: No Status: Acute (3) Diabetes mellitus Current Visit: No Status: Chronic Qualifiers: (4) HTN (hypertension) Current Visit: No Status: Chronic Qualifiers: (5) UTI (urinary tract infection) Current Visit: Yes Status: Acute (6) Elevated troponin Current Visit: Yes Status: Acute - Plan 1. Echocardiogram was reviewed. Patient on a cardiac catheterization. No significant abnormalities. Troponins are elevated once again. However most likely not related to cardiac issues. 2. Continue gentle diuresing 3. Continue beta-ronald 4. Cardiology consultation 5. Pain medication/she may benefit from medicine for generalized anxiety disorder 6. Strict I's and O's 7. Repeat CXR 8. Daily weights 9. GI and DVT prophylaxis Discharge Plan: Home Plan to discharge in: 48 Hours - Advance Directives Does patient have a Living Will: No Does patient have a Durable POA for Healthcare: No - Code Status/Comfort Care Code Status Assessed: Yes Code Status: Full Code Critical Care: No Time Spent Managing PTS Care (In Minutes): 50
[2018-06-08] MEDS ORDERED: Levofloxacin500mg IV 500 MG/100 ML BAG IV SCH (11:00)
[2018-06-08 11:42] LABS: Absolute Lymphocytes (CBC) 1.3 K/uL (0.7-4.9); Absolute Monocytes 0.7 K/uL (0.1-1.3); Absolute Neutrophil 5.1 K/uL (1.8-8.0); Basophils % 1.2 % (0-1.3); Eosinophils % 2.3 % (0-4.4); Hematocrit 28.1 % (36.0-45.0); Lymphocytes % 17.8 % (15.3-44.8); MPV 8.7 fL (7.6-11.3); Monocytes % 9.1 % (3.3-12.3)
[2018-06-08 12:02] LABS: Magnesium 1.7 mg/dL (1.8-2.4); Phosphorus 4.5 mg/dL (2.5-4.9); Potassium 3.8 mmol/L (3.5-5.1)
[2018-06-08] MEDS ORDERED: POTASSIUM CL SA 10 MEQ TAB PO ONE (13:15)
[2018-06-08] MEDS ORDERED: MAGNESIUM SULFATE 1 gm IVPB 1 GM/100 ML BAG IV ONE (13:16)
[2018-06-08] MEDS ORDERED: METOCLOPRAMIDE 10MG/10ML UCUP PO ONE (13:30)
[2018-06-08 15:08] VITALS: O2SAT 98
--- NOTE | 2018-06-08 17:26 | RAD REPORT ---
EXAM DESCRIPTION: NM - Vent Perfusion VQ Scan - 06/08/2018 4:08 pm CLINICAL HISTORY: Elevated Ddimer with Tacypnea COMPARISON: No comparisons TECHNIQUE: 12.7mCi Xe-133 gas inhaled and 7.6mCi Tc-MAA IV. Planar ventilation scan was performed in posterior projection after Xe-133 gas inhalation (wash-in, e quilibrium, and wash-out phases) followed by perfusion scan with Tc-MAA IV in multiple projections. Examination is correlated with recent chest radiograph. FINDINGS: Normal ventilation with appropriate wash-out and no significant air-trapping. No mismatched segmental perfusion defect. IMPRESSION: Very low probability of acute pulmonary embolism.
[2018-06-08 17:48] VITALS: BP 126/60; TEMP 97.8
--- NOTE | 2018-06-08 19:02 | RAD REPORT ---
EXAM DESCRIPTION: US - Extrem Venous W Compress Manny - 06/08/2018 6:54 pm CLINICAL HISTORY: DVT? Bilateral leg edema and swelling. COMPARISON: No comparisons TECHNIQUE: Real-time sonographic interrogation of the left and right lower extremity deep venous sys tems was performed. FINDINGS: Normal compressibility, flow augmentation, phasic flow and spontaneous flow is identified in both the left and right lower extremity deep venous systems. IMPRESSION: No sonographic evidence of left or right lower extremity deep venous thrombosis.
[2018-06-08] MEDS ORDERED: METOCLOPRAMIDE 5 MG TAB PO SCH (21:00)
[2018-06-09] MEDS ORDERED: CEFTRIAXONE 1 GM/NS 50 ML 1 GM/50 ML BAG IV SCH (11:00)
== END 2018-06-08 20:48 | disposition home or self-care (01) | DRG 292 ==
LOC: ER 18:32 → 4TH 06-08 00:59
PROVIDERS: ADMIT Hospitalist; ATTEND Family Medicine
DX: I50.33 Acute on chronic diastolic (congestive) heart failure (principal); N39.0 Urinary tract infection, site not specified; E11.9 Type 2 diabetes mellitus without complications; I10 Essential (primary) hypertension; E66.9 Obesity, unspecified; E78.5 Hyperlipidemia, unspecified; Z68.35 Body mass index [BMI] 35.0-35.9, adult
CPT/HCPCS: 36415; 71045; 78582; 80048; 80076; 81003; 81015; 82962; 83735; 83880; 84100; 84484; 85025; 85379; 85610; 87077; 87086; 87088; 87186; 93005; 93970; 94640; 96374; 96375; 97163; 99285; A9540; A9558; C9113; J1650; J1940; J2405; J3475; J7030

== ENCOUNTER 2020-05-03 08:20 | Inpatient (IN) | payer OTHER, SELFPAY ==
--- OUTSIDE RECORDS SUMMARY | 2020-05-03 08:43 | XMS REPORT | Summary of Care ---
:1955 Author Organization [facility] Address [address] [place] [address] Care Team Providers Name Role Phone System, Not In Primary Care Provider Unavailable Encounter Details Date Type Department Care Team Description 03/07/2020 Orders Only [facility] Doctor Unassigned, No [address] [facility] [place] [address] [address] [place] [address] Allergies Active Allergy Reactions Severity Noted Date Comments Penicillin Anaphylaxis 03/29/2015 documented as of this encounter (statuses as of 03/09/2020) Medications Medication Sig Dispensed Refills Start Date End Date Status naproxen sodium (ALEVE) Take 220 Caps 0 Active 220 mg capsule by mouth as needed. cyclobenzaprine 10 mg Take 10 mg by 0 03/02/2019 Active tablet mouth. furosemide 40 mg tablet TAKE 1 TABLET 0 01/10/2020 Active BY MOUTH TWICE A DAY gabapentin 100 mg TAKE BY MOUTH 2 0 01/10/2020 Active capsule CAPSULES 3 TIMES A DAY NEEDED FOR PAIN metoclopramide HCl 5 mg Take 5 mg by 0 03/02/2019 Active tablet mouth. pantoprazole 40 mg EC Take 40 mg by 0 03/02/2019 Active tablet mouth. pravastatin 40 mg Take 40 mg by 0 03/02/2019 Active tablet mouth. amLODIPine 10 mg Take 1 tablet 30 tablet 2 02/09/2020 05/09/20 20 Active tabletIndications: by mouth daily Suspected COVID-19 for 90 days. virus infection, SOB (shortness of breath), Fatigue, unspecified type, Lack of energy, Loss of appetite, Hypoglycemia, COVID-19 virus detected, Dehydration, MOOSE (acute kidney injury), Elevated troponin, Acute on chronic congestive heart failure, unspecified heart failure type, Coronary artery disease involving [place] heart without angina pectoris, unspecified vessel or lesion type, Acute kidney injury superimposed on CKD, Acute respiratory disease due to COVID-19 virus, Obesity (BMI 30-39.9), Morbid obesity with body mass index of 40.0-49.9 aspirin 81 mg chewable Take 1 tablet 30 tablet 2 02/10/2020 Active tabletIndications: by mouth daily Suspected COVID-19 for 90 days. virus infection, SOB (shortness of breath), Fatigue, unspecified type, Lack of energy, Loss of appetite, Hypoglycemia, COVID-19 virus detected, Dehydration, MOOSE (acute kidney injury), Elevated troponin, Acute on chronic congestive heart failure, unspecified heart failure type, Coronary artery disease involving [place] heart without angina pectoris, unspecified vessel or lesion type, Acute kidney injury superimposed on CKD, Acute respiratory disease due to COVID-19 virus, Obesity (BMI 30-39.9), Morbid obesity with body mass index of 40.0-49.9 carvediloL 12.5 mg Take 1 tablet 60 tablet 2 02/09/20202019 Active tabletIndications: by mouth 2 Suspected COVID-19 (two) times virus infection, SOB daily with (shortness of breath), meals for 90 Fatigue, unspecified days. type, Lack of energy, Loss of appetite, Hypoglycemia, COVID-19 virus detected, Dehydration, MOOSE (acute kidney injury), Elevated troponin, Acute on chronic congestive heart failure, unspecified heart failure type, Coronary artery disease involving [place] heart without angina pectoris, unspecified vessel or lesion type, Acute kidney injury superimposed on CKD, Acute respiratory disease due to COVID-19 virus, Obesity (BMI 30-39.9), Morbid obesity with body mass index of 40.0-49.9 cholecalciferol, Take 1 tablet 30 tablet 2 02/10/2020 05/10/20 20 Active vitamin D3, 25 mcg by mouth daily (1,000 unit) for 90 days. tabletIndications: Suspected COVID-19 virus infection, SOB (shortness of breath), Fatigue, unspecified type, Lack of energy, Loss of appetite, Hypoglycemia, COVID-19 virus detected, Dehydration, MOOSE (acute kidney injury), Elevated troponin, Acute on chronic congestive heart failure, unspecified heart failure type, Coronary artery disease involving [place] heart without angina pectoris, unspecified vessel or lesion type, Acute kidney injury superimposed on CKD, Acute respiratory disease due to COVID-19 virus, Obesity (BMI 30-39.9), Morbid obesity with body mass index of 40.0-49.9 ferrous sulfate 325 mg Take 1 tablet 30 tablet 0 02/10/2020 Active (65 mg iron) by mouth daily tabletIndications: for 30 days. Suspected COVID-19 virus infection, SOB (shortness of breath), Fatigue, unspecified type, Lack of energy, Loss of appetite, Hypoglycemia, COVID-19 virus detected, Dehydration, MOOSE (acute kidney injury), Elevated troponin, Acute on chronic congestive heart failure, unspecified heart failure type, Coronary artery disease involving [place] heart without angina pectoris, unspecified vessel or lesion type, Acute kidney injury superimposed on CKD, Acute respiratory disease due to COVID-19 virus, Obesity (BMI 30-39.9), Morbid obesity with body mass index of 40.0-49.9 sennosides 8.6 mg Take 1 tablet 60 tablet 2 02/09/2020 020 Active tabletIndications: by mouth 2 Suspected COVID-19 (two) times virus infection, SOB daily for 90 (shortness of breath), days. Fatigue, unspecified type, Lack of energy, Loss of appetite, Hypoglycemia, COVID-19 virus detected, Dehydration, MOOSE (acute kidney injury), Elevated troponin, Acute on chronic congestive heart failure, unspecified heart failure type, Coronary artery disease involving [place] heart without angina pectoris, unspecified vessel or lesion type, Acute kidney injury superimposed on CKD, Acute respiratory disease due to COVID-19 virus, Obesity (BMI 30-39.9), Morbid obesity with body mass index of 40.0-49.9 Insulin Glargine inject 20 Units 18 mL 0 02/09/20202019 Active (LANTUS SOLOSTAR U-100 under the skin INSULIN) 100 unit/mL (3 at bedtime for mL) 90 days. injectionIndications: Suspected COVID-19 virus infection, SOB (shortness of breath), Fatigue, unspecified type, Lack of energy, Loss of appetite, Hypoglycemia, COVID-19 virus detected, Dehydration, MOOSE (acute kidney injury), Elevated troponin, Acute on chronic congestive heart failure, unspecified heart failure type, Coronary artery disease involving [place] heart without angina pectoris, unspecified vessel or lesion type, Acute kidney injury superimposed on CKD, Acute respiratory disease due to COVID-19 virus, Obesity (BMI 30-39.9), Morbid obesity with body mass index of 40.0-49.9 Lancets Use as directed 1 Each 0 02/09/2020 Act colleen MiscIndications: Suspected COVID-19 virus infection, SOB (shortness of breath), Fatigue, unspecified type, Lack of energy, Loss of appetite, Hypoglycemia, COVID-19 virus detected, Dehydration, MOOSE (acute kidney injury), Elevated troponin, Acute on chronic congestive heart failure, unspecified heart failure type, Coronary artery disease involving [place] heart without angina pectoris, unspecified vessel or lesion type, Acute kidney injury superimposed on CKD, Acute respiratory disease due to COVID-19 virus, Obesity (BMI 30-39.9), Morbid obesity with body mass index of 40.0-49.9 Blood-Glucose Meter Use as directed 1 Kit 0 02/09/2020 Active KitIndications: Suspected COVID-19 virus infection, SOB (shortness of breath), Fatigue, unspecified type, Lack of energy, Loss of appetite, Hypoglycemia, COVID-19 virus detected, Dehydration, MOOSE (acute kidney injury), Elevated troponin, Acute on chronic congestive heart failure, unspecified heart failure type, Coronary artery disease involving [place] heart without angina pectoris, unspecified vessel or lesion type, Acute kidney injury superimposed on CKD, Acute respiratory disease due to COVID-19 virus, Obesity (BMI 30-39.9), Morbid obesity with body mass index of 40.0-49.9 Blood Glucose Use as directed 1 Kit 0 02/09/2020 Active Strip-Disp Meter KitIndications: Suspected COVID-19 virus infection, SOB (shortness of breath), Fatigue, unspecified type, Lack of energy, Loss of appetite, Hypoglycemia, COVID-19 virus detected, Dehydration, MOOSE (acute kidney injury), Elevated troponin, Acute on chronic congestive heart failure, unspecified heart failure type, Coronary artery disease involving [place] heart without angina pectoris, unspecified vessel or lesion type, Acute kidney injury superimposed on CKD, Acute respiratory disease due to COVID-19 virus, Obesity (BMI 30-39.9), Morbid obesity with body mass index of 40.0-49.9 hydrALAZINE 25 mg Take 1 tablet 60 tablet 2 02/09/2020 020 Active tabletIndications: by mouth 2 Suspected COVID-19 (two) times virus infection, SOB daily for 90 (shortness of breath), days. Fatigue, unspecified type, Lack of energy, Loss of appetite, Hypoglycemia, COVID-19 virus detected, Dehydration, MOOSE (acute kidney injury), Elevated troponin, Acute on chronic congestive heart failure, unspecified heart failure type, Coronary artery disease involving [place] heart without angina pectoris, unspecified vessel or lesion type, Acute kidney injury superimposed on CKD, Acute respiratory disease due to COVID-19 virus, Obesity (BMI 30-39.9), Morbid obesity with body mass index of 40.0-49.9 documented as of this encounter (statuses as of 03/09/2020) Active Problems Problem Noted Date Morbid obesity with body mass index of 40.0-49.9 02/01 Acute respiratory disease due to COVID-19 virus 2019 Obesity (BMI 30-39.9) 01/14/2020 documented as of this encounter (statuses as of 03/09/2020) Social History Tobacco Use Types Packs/Day Years Used Date Never Smoker Smokeless Tobacco: Never Used Qu it: 06/02/1979 Alcohol Use Drinks/Week oz/Week Comments No 0 Standard drinks or equivalent 0.0 Financial Resource Strain Answer Date Recorded How hard is it for you to pay for the very basics like food, Very hard 01/14/2020 housing, medical care, and heating? Food Insecurity Answer Date Recorded Within the past 12 months, you worried that your food would Often true 01/14/2020 run out before you got money to buy more. Within the past 12 months, the food you bought just didn't O ften true 01/14/2020 last and you didn't have money to get more. Transportation Needs Answer Date Recorded In the past 12 months, has lack of transportation kept you f rom No 01/14/2020 medical appointments or from getting medications? In the past 12 months, has lack of transportation kept you f rom No 01/14/2020 meetings, work, or getting things needed for daily living? Sex Assigned at Date Recorded Not on file documented as of this encounter Last Filed Vital Signs Not on filedocumented in this encounter Plan of Treatment Health Maintenance Due Date Last Done Comments HEPATITIS C (HCV) SCREEN 1955 PNEUMOCOCCAL 0-64 YEARS COMBINED SERIES (1 of 1 - 1963 PPSV23) Depression Screening 1969 DTaP,Tdap,and Td Vaccines (1 - Tdap) 01/19/1976 PAP SMEAR 1978 COLON CANCER SCREENING FIT DNA EVERY 3 YEARS 2007 COLON CANCER SCREENING SIGMOIDOSCOPY EVERY 5 YEARS 2007 COLONOSCOPY 2007 Zoster Recombinant Vaccine (SHINGRIX) (1 of 2) 2007 Breast Cancer Screening (MAMMOGRAM) 03/29/2016 03/29/2015 INFLUENZA VACCINE (#1) 2020 COLON CANCER SCREENING ANNUAL FIT/FOBT 2021 0 Colorectal Cancer Screening 2021 documented as of this encounter Procedures Procedure Name Priority Date/Time Associated Diagnosis Comme nts AUTHORIZATION FOR RELEASE Routine 03/07/2020 12:01 AM OF [facility] CDT documented in this encounter Results Not on filedocumented in this encounter
--- OUTSIDE RECORDS SUMMARY | 2020-05-03 08:43 | XMS REPORT | Summary of Care ---
:1955 Author Organization [facility] Address [address] [place] [id number] Care Team Providers Name Role Phone System, Not In Primary Care Provider Unavailable Reason for Visit Reason Comments Transition Of Care Encounter Details Date Type Department Care Team Description 02/10/2020 Transition of Care [facility] Zachary Salazar Transition Of Care Health [address] [address] Allergies Active Allergy Reactions Severity Noted Date Comments Penicillin Anaphylaxis 03/29/2015 documented as of this encounter (statuses as of 02/11/2020) Medications Medication Sig Dispensed Refills Start Date [...] 20 Active tabletIndications: by mouth daily Suspected Covid-19 for 90 days. Virus Infection, SOB (shortness of breath), Fatigue, unspecified type, Lack of energy, Loss of appetite, Hypoglycemia, COVID-19 virus detected, Dehydration, MOOSE (acute kidney injury), Elevated troponin, Acute on chronic congestive heart failure, unspecified heart failure type, Coronary artery disease involving [place] heart without angina pectoris, unspecified vessel or lesion type, Acute kidney injury superimposed on CKD, Acute respiratory disease due to COVID-19 virus, Obesity (BMI 30-39.9), Morbid obesity with body mass index of 40.0-49.9 aspirin 81 mg chewable Take 1 tablet 30 tablet 2 02/10/2020 Active tabletIndications: by mouth daily Suspected Covid-19 for 90 days. Virus Infection, SOB (shortness of breath), Fatigue, unspecified type, Lack of energy, Loss of appetite, Hypoglycemia, COVID-19 virus detected, Dehydration, MOOSE (acute kidney injury), Elevated troponin, Acute on chronic congestive heart failure, unspecified heart failure type, Coronary artery disease involving [place] heart without angina pectoris, unspecified vessel or lesion type, Acute kidney injury superimposed on CKD, Acute respiratory disease due to COVID-19 virus, Obesity (BMI 30-39.9), Morbid obesity with body mass index of 40.0-49.9 carvediloL 12.5 mg Take 1 tablet 60 tablet 2 02/09/20202019 Active tabletIndications: by mouth 2 Suspected Covid-19 (two) times Virus Infection, SOB daily with (shortness of breath), meals for 90 Fatigue, unspecified days. type, Lack of energy, Loss of appetite, Hypoglycemia, COVID-19 virus detected, Dehydration, MOOSE (acute kidney injury), Elevated troponin, Acute on chronic congestive heart failure, unspecified heart failure type, Coronary artery disease involving [place] heart without angina pectoris, unspecified vessel or lesion type, Acute kidney injury superimposed on CKD, Acute respiratory disease due to COVID-19 virus, Obesity (BMI 30-39.9), Morbid obesity with body mass index of 40.0-49.9 cholecalciferol, Take 1 tablet 30 tablet 2 02/10/2020 05/10/20 20 Active vitamin D3, 25 mcg by mouth daily (1,000 unit) for 90 days. tabletIndications: Suspected Covid-19 Virus Infection, SOB (shortness of breath), Fatigue, unspecified type, Lack of energy, Loss of appetite, Hypoglycemia, COVID-19 virus detected, Dehydration, MOOSE (acute kidney injury), Elevated troponin, Acute on chronic congestive heart failure, unspecified heart failure type, Coronary artery disease involving [place] heart without angina pectoris, unspecified vessel or lesion type, Acute kidney injury superimposed on CKD, Acute respiratory disease due to COVID-19 virus, Obesity (BMI 30-39.9), Morbid obesity with body mass index of 40.0-49.9 ferrous sulfate 325 mg Take 1 tablet 30 tablet 0 02/10/2020 Active (65 mg iron) by mouth daily tabletIndications: for 30 days. Suspected Covid-19 Virus Infection, SOB (shortness of breath), Fatigue, unspecified type, Lack of energy, Loss of appetite, Hypoglycemia, COVID-19 virus detected, Dehydration, MOOSE (acute kidney injury), Elevated troponin, Acute on chronic congestive heart failure, unspecified heart failure type, Coronary artery disease involving [place] heart without angina pectoris, unspecified vessel or lesion type, Acute kidney injury superimposed on CKD, Acute respiratory disease due to COVID-19 virus, Obesity (BMI 30-39.9), Morbid obesity with body mass index of 40.0-49.9 sennosides 8.6 mg Take 1 tablet 60 tablet 2 02/09/2020 020 Active tabletIndications: by mouth 2 Suspected Covid-19 (two) times Virus Infection, SOB daily for 90 (shortness of breath), days. Fatigue, unspecified type, Lack of energy, Loss of appetite, Hypoglycemia, COVID-19 virus detected, Dehydration, MOOSE (acute kidney injury), Elevated troponin, Acute on chronic congestive heart failure, unspecified heart failure type, Coronary artery disease involving [place] heart without angina pectoris, unspecified vessel or lesion type, Acute kidney injury superimposed on CKD, Acute respiratory disease due to COVID-19 virus, Obesity (BMI 30-39.9), Morbid obesity with body mass index of 40.0-49.9 Insulin Glargine inject 20 Units 18 mL 0 02/09/20202019 Active (LANTUS SOLOSTAR U-100 under the skin INSULIN) 100 unit/mL (3 at bedtime for mL) 90 days. injectionIndications: Suspected Covid-19 Virus Infection, SOB (shortness of breath), Fatigue, unspecified type, Lack of energy, Loss of appetite, Hypoglycemia, COVID-19 virus detected, Dehydration, MOOSE (acute kidney injury), Elevated troponin, Acute on chronic congestive heart failure, unspecified heart failure type, Coronary artery disease involving [place] heart without angina pectoris, unspecified vessel or lesion type, Acute kidney injury superimposed on CKD, Acute respiratory disease due to COVID-19 virus, Obesity (BMI 30-39.9), Morbid obesity with body mass index of 40.0-49.9 Lancets Use as directed 1 Each 0 02/09/2020 Act colleen MiscIndications: Suspected Covid-19 Virus Infection, SOB (shortness of breath), Fatigue, unspecified type, Lack of energy, Loss of appetite, Hypoglycemia, COVID-19 virus detected, Dehydration, MOOSE (acute kidney injury), Elevated troponin, Acute on chronic congestive heart failure, unspecified heart failure type, Coronary artery disease involving [place] heart without angina pectoris, unspecified vessel or lesion type, Acute kidney injury superimposed on CKD, Acute respiratory disease due to COVID-19 virus, Obesity (BMI 30-39.9), Morbid obesity with body mass index of 40.0-49.9 Blood-Glucose Meter Use as directed 1 Kit 0 02/09/2020 Active KitIndications: Suspected Covid-19 Virus Infection, SOB (shortness of breath), Fatigue, unspecified type, Lack of energy, Loss of appetite, Hypoglycemia, COVID-19 virus detected, Dehydration, MOOSE (acute kidney injury), Elevated troponin, Acute on chronic congestive heart failure, unspecified heart failure type, Coronary artery disease involving [place] heart without angina pectoris, unspecified vessel or lesion type, Acute kidney injury superimposed on CKD, Acute respiratory disease due to COVID-19 virus, Obesity (BMI 30-39.9), Morbid obesity with body mass index of 40.0-49.9 Blood Glucose Use as directed 1 Kit 0 02/09/2020 Active Strip-Disp Meter KitIndications: Suspected Covid-19 Virus Infection, SOB (shortness of breath), Fatigue, unspecified type, Lack of energy, Loss of appetite, Hypoglycemia, COVID-19 virus detected, Dehydration, MOOSE (acute kidney injury), Elevated troponin, Acute on chronic congestive heart failure, unspecified heart failure type, Coronary artery disease involving [place] heart without angina pectoris, unspecified vessel or lesion type, Acute kidney injury superimposed on CKD, Acute respiratory disease due to COVID-19 virus, Obesity (BMI 30-39.9), Morbid obesity with body mass index of 40.0-49.9 hydrALAZINE 25 mg Take 1 tablet 60 tablet 2 02/09/2020 020 Active tabletIndications: by mouth 2 Suspected Covid-19 (two) times Virus Infection, SOB daily for 90 (shortness of breath), days. Fatigue, unspecified type, Lack of energy, Loss of appetite, Hypoglycemia, COVID-19 virus detected, Dehydration, MOOSE (acute kidney injury), Elevated troponin, Acute on chronic congestive heart failure, unspecified heart failure type, Coronary artery disease involving [place] heart without angina pectoris, unspecified vessel or lesion type, Acute kidney injury superimposed on CKD, Acute respiratory disease due to COVID-19 virus, Obesity (BMI 30-39.9), Morbid obesity with body mass index of 40.0-49.9 documented as of this encounter (statuses as of 02/11/2020) Active Problems Problem Noted Date Morbid obesity with body mass index of 40.0-49.9 02/01 Acute respiratory disease due to COVID-19 virus 2019 Obesity (BMI 30-39.9) 01/14/2020 documented as of this encounter (statuses as of 02/11/2020) Social History Tobacco Use Types Packs/Day Years [...] Assigned at Date Recorded Not on file COVID-19 Exposure Response Date Recorded In the last month, have you been in contact with No / Unsure 01/13/2020 9:04 PM CDT someone who was confirmed or suspected to have Coronavirus / COVID-19? documented as of this encounter Last Filed Vital Signs Not on filedocumented in this encounter Miscellaneous Notes Telephone Encounter - Zahida Girard - 02/11/2020 12:52 PM CDT2nd call no answer. Telephone Encounter - Zahida Girard - 02/10/2020 10:48 AM CDT TRANSITIONAL CARE MANAGEMENT ASSESSMENT 02/10/2020 Abby Meredith [id number] Abby Meredith is a 65 year old /White female was admitted on 01/13/20 to [facility] ([facility] [place] [address]. She was discharged on 02/09/20 with discharge disposition of HR- Routine Discharge. Admitting Physician: Rand Gonzalez Discharge Diagnosis:Covid 19 positive No answer. No linked episodes TCM [id number] outreach documentation: Future Appointments: documented in this encounter Plan of Treatment Health [...] Screening 2021 documented as of this encounter Results Not on filedocumented in this encounter Additional Health Concerns Infection Onset Date Last Indicated Resolved Time COVID-19 Confirmed 01/13/2020 02/03/2020 documented as of this encounter
--- OUTSIDE RECORDS SUMMARY | 2020-05-03 08:43 | XMS REPORT | Continuity of Care Document ---
:1955 Author Organization [facility] t Address [address] [place] [address] Care Team Providers Name Role Phone Doctor Unassigned, Name Attending Clinician Unavailable Shaji Attending Clinician Problems This patient has no known problems. Allergies, Adverse Reactions, Alerts This patient has no known allergies or adverse reactions. Medications This patient has no known medications. Procedures This patient has no known procedures. Encounters Start End Encounter Admission Attending Care Care Encounter Source Date/Time Date/Time Type Type Clinicians Facility Department ID 2020-03-07 2020-03-07 Orders Doctor VINICIO [id number] 00:00:00 00:00:00 Only UnassignedALLY [id number] Derma [facility] [id number] 2020-02-10 2020-02-10 Transition Kath Girard [id number] 00:00:00 00:00:00 of Care Zahida Michele [id number] [facility] [id number] Results This patient has no known results.
[2020-05-03] MEDS ORDERED: ACETAMINOPHEN 325 MG TABLET ONE (09:20)
[2020-05-03 09:29] LABS: Absolute Lymphocytes (CBC) 0.7 K/uL (0.7-4.9); Basophils % 0.3 % (0-1.3); Hematocrit 32.4 % (36.0-45.0); Lymphocytes % 4.6 % (15.3-44.8); MPV 8.1 fL (7.6-11.3); RBC Red Blood Cell Count 3.56 M/uL (3.86-4.86)
[2020-05-03 09:34] LABS: Protime INR 1.1
[2020-05-03] MEDS ORDERED: NA CHLORIDE 0.9% 1,000 ML ONE (09:51)
--- NOTE | 2020-05-03 09:53 | RAD REPORT ---
EXAM DESCRIPTION: RAD - Chest Single View - 05/03/2020 9:32 am CLINICAL HISTORY: FEVER Chest pain. COMPARISON: Chest Single View dated 06/07/2018; Chest Single View dated 06/02/2018; Abdomen 1 View (KUB) dated 06/01/2018; Chest Pa And Lat (2 Views) dated 05/31/2018 FINDINGS: Portable technique limits examination quality. Mild interstitial pulmonary edema. The heart is upper limit of normal in size. Left-sided venous cath eter has tip in the right atrium. IMPRESSION: Mild CHF versus volume overload pattern.
[2020-05-03] MEDS ORDERED: ONDANSETRON 4 MG/2 ML VIAL ONE (09:57)
[2020-05-03] MEDS ORDERED: MORPHINE 4 MG/ML SYR ONE (09:57)
[2020-05-03 10:02] LABS: ALT/SGPT 35 U/L (12-78); AST/SGOT 24 U/L (15-37); Albumin 3.2 g/dL (3.4-5.0); Alkaline Phosphatase 92 U/L (45-117); Amylase 68 U/L (25-115); BUN Blood Urea Nitrogen 38 mg/dL (7-18); Bicarbonate 25 mmol/L (21-32); Bilirubin Direct 0.1 mg/dL (0-0.2); Bilirubin Total 0.4 mg/dL (0.2-1.0); CKMB Creatine Kinase MB 7.2 ng/mL (0.3-3.6); Creatine Phosphokinase 428 U/L (26-192); Glucose Level 200 mg/dL (74-106); Lipase 230 U/L (73-393); Potassium 4.5 mmol/L (3.5-5.1); Protein, Total 7.3 g/dL (6.4-8.2); Sodium Level 138 mmol/L (136-145); Troponin (Emerg Dept Use Only) < 0.02 ng/mL (0.0-0.045)
[2020-05-03 10:03] LABS: Blood Morphology Comment NOT SEEN (NOT SEEN); Platelet Estimate ADEQ; White Blood Cell Scan OK (OK)
--- NOTE | 2020-05-03 10:51 | RAD REPORT ---
EXAM DESCRIPTION: CT - Abdomen Pelvis Wo Contrast - 05/03/2020 10:05 am CLINICAL HISTORY: Abdominal pain. RLQ pain;Abd pain COMPARISON: Abdomen Pelvis W Contrast dated 05/30/2018 TECHNIQUE: CT imaging of the abdomen and pelvis was performed without contrast. Solid organ, bowel a nd vascular assessment is limited due to lack of IV and oral contrast. All CT scans are performed using dose optimization technique as appropriate and may include automated exposure control or mA/KV adjustment according to patient size. FINDINGS: Mild linear subsegmental atelectasis in both lung bases.Cholecystectomy clips. The liver, spleen, pancreas, adrenal glands and left kidney are within normal limits for a limited no n-contrast examination.Punctate 1-2 mm calculus is seen inferior right renal calyx without hydronephr osis appear No bowel obstruction, free air, free fluid or abscess. Thickening of the giron of the cecum noted victor m ewhat asymmetric in nature, with right-sided lateral wall thickening up to 24 mm noted. Terminal ileu m appears mildly thickened as well. Appendectomy. Midline hernia repair changes seen. Small fat conta ining left inguinal hernia. The osseous structures are within normal limits. IMPRESSION: Thickening of the cecal wall is noted up to 24 mm and somewhat asymmetric. Inflammatory condition such S typhlitis or other infection/inflammation the cecum is possible. The diagnosis of co ncern would be malignancy in the cecum and followup colonoscopy would be advised. A limited non-contrast examination was performed as detailed.
[2020-05-03 11:43] LABS: Urine Bacteria LOADED /HPF (<20)
[2020-05-03] MEDS ORDERED: FENTANYL CITR 100 MCG/2 ML ONE (12:23)
--- NOTE | 2020-05-03 12:26 | ER ---
Nurse's Notes [facility] Name: Abby Meredith Age: 65 yrs Sex: Female : 1955 Arrival Date: 05/03/2020 Time: 08:25 Bed 18 Private MD: Diagnosis: Abdominal and pelvic pain;Cecal Inflammation Presentation: 05/03 08:25 Chief complaint: EMS states: RLQ abd pain, N/V since last night at 2100; pt reported jl7 syncopal episode while vomiting about 0745. Pt reports had COVID in March, appendix was removed at age 9. Coronavirus screen: Client denies travel out of the [place] in the last 14 days. nausea, vomiting. Ebola Screen: No symptoms or risks identified at this time. Initial Sepsis Screen: Does the patient meet any 2 criteria? Temp <36.0*C (96.8*F)) or > 38.3*C (100.9*F). HR > 90 bpm. Yes Does the patient have a suspected source of infection? Yes: Acute abdominal pain If YES to both, name of provider notified: Venancio Murray MD. Risk Assessment: Do you want to hurt yourself or someone else? Patient reports no desire to harm self or others. Onset of symptoms was May 02, 2020 at 21:00. Care prior to arrival: Medication(s) given: zofran IM. Transition of care: patient was not received from another setting of care. 08:25 Method Of Arrival: EMS: [facility] 08:25 Acuity: TOMASA 2 jl7 Triage Assessment: 08:39 General: Appears in no apparent distress. uncomfortable, ill, Behavior is calm, jl7 cooperative, appropriate for age. Pain: Complains of pain in right lower quadrant Pain does not radiate. Pain currently is 10 out of 10 on a pain scale. Quality of pain is described as stabbing, Pain began 1 day ago. Is continuous. Neuro: Level of Consciousness is awake, alert, obeys commands, Oriented to person, place, time, situation. Cardiovascular: Patient's skin is warm and dry. Respiratory: Airway is patent Respiratory effort is even, unlabored, Respiratory pattern is regular, symmetrical. GI: Reports lower abdominal pain, nausea, vomiting. : No signs and/or symptoms were reported regarding the genitourinary system. Derm: Skin is pink, warm \T\ dry. Musculoskeletal: No signs and/or symptoms reported regarding the musculoskeletal system. Historical: - Allergies: :39 PENICILLINS; jl7 - Home Meds: :39 aspirin 81 mg Oral chew 1 tab once daily [Active]; carvedilol 12.5 mg oral tab 1 tab jl7 every 12 hours [Active]; gabapentin 100 mg oral cap [Active]; glipizide 5 mg oral tab [Active]; Lasix 40 mg oral tab 2 times per day [Active]; losartan 50 mg oral tab 1 tab 2 times per day [Active]; Norvasc 10 mg Oral tab 1 tab once daily [Active]; - PMHx: :39 CHF; Diabetes - IDDM; Hyperlipidemia; Hypertension; Dialysis; M-W-F; jl7 - PSHx: :39 Appendectomy; jl7 - Immunization history:: Adult Immunizations up to date, Pneumococcal vaccine is up to date, Flu vaccine is up to date. - Social history:: Smoking status: Patient denies any tobacco usage or history of. Screenin:44 Abuse screen: Denies threats or abuse. Denies injuries from another. Nutritional jl7 screening: No deficits noted. Tuberculosis screening: No symptoms or risk factors identified. Fall Risk No fall in past 12 months (0 pts). No secondary diagnosis (0 pts). IV access (20 points). Ambulatory Aid- None/Bed Rest/Nurse Assist (0 pts). Gait- Weak (10 pts.). Mental Status- Oriented to own ability (0 pts). Total Lucero Fall Scale indicates Low Risk Score (25-44 pts). Fall prevention measures have been instituted. Side Rails Up X 2 Placed close to Nursing Station Frequent Obs/Assesments occuring Family Present and informed to notify staff if they need to leave bedside As available Patient and Family Educated on Fall Prevention Program and strategies. Assessment: 09:00 General: See triage assessment. jl7 10:00 Reassessment: Patient appears in no apparent distress at this time. No changes from jl7 previously documented assessment. Patient and/or family updated on plan of care and expected duration. Pain level reassessed. Patient is alert, oriented x 3, equal unlabored respirations, skin warm/dry/pink. 11:02 Reassessment: Patient appears in no apparent distress at this time. No changes from jl7 previously documented assessment. Patient and/or family updated on plan of care and expected duration. Pain level reassessed. Patient is alert, oriented x 3, equal unlabored respirations, skin warm/dry/pink. 12:00 Reassessment: Small amount of blood noted on pts brief, pt reports blood when wiping, jl7 denies blood in stool; ERD notified. Pt reports continued severe RLQ abd pain, ERD notified, see MAR for orders. 12:30 Reassessment: Dr. Murray at bedside discussing results and POC. jl7 12:50 Reassessment: Pt reports continued pain, ERD notified, see MAR for orders. jl7 13:10 Reassessment: Patient appears in no apparent distress at this time. pt reports jl7 decreased pain at this time. 14:14 Reassessment: Patient appears in no apparent distress at this time. Pt reports jl7 increased pain, ERD notified, see MAR for orders. 15:20 Reassessment: Dr. Winters at bedside assessing pt and discussing POC. jl7 17:00 Reassessment: Pt reports increased pain, ERD notified, see MAR for orders. jl7 18:00 Reassessment: pt laying in bed with eyes closed, respirations even and unlabored, no jl7 signs of distress noted at this time. Awaiting bed assignment. Will continue to monitor. 19:08 Reassessment: Pt requesting to eat, Dr. Patiño notified, VO for ice chip only until jl7 midnight then NPO. Vital Signs: 08:25 BP 159 / 72; Pulse 101; Resp 19; Temp 101.6; Pulse Ox 100% ; Weight 81.65 kg; Height 5 jl7 ft. 3 in. (160.02 cm); Pain 10/10; 09:15 BP 131 / 60; Pulse 92; Resp 17; Pulse Ox 96% ; jl7 10:00 BP 128 / 39; Pulse 82; Resp 17; Pulse Ox 98% ; jl7 10:39 Temp 101.1; jl7 11:00 BP 103 / 36; jl7 11:01 Pulse 86; Resp 17 S; Pulse Ox 98% on 2 lpm NC; jl7 12:00 BP 105 / 43; Pulse 83; Resp 17 S; Pulse Ox 98% on 2 lpm NC; jl7 12:00 Temp 100.5(O); jl7 13:22 BP 98 / 43; Pulse 86; Resp 17 S; Pulse Ox 99% on R/A; jd3 14:07 BP 117 / 43; Pulse 87; Resp 15; Pulse Ox 87% ; jl7 15:47 BP 117 / 53; Pulse 90; Resp 15; Pulse Ox 100% ; jl7 18:00 BP 129 / 52; Pulse 88; Resp 17 S; Pulse Ox 100% on 2 lpm NC; jl7 19:25 BP 129 / 76; Pulse 94; Resp 18; Temp 100.5(A); Pulse Ox 99% on 2 lpm NC; mg2 08:25 Body Mass Index 31.89 (81.65 kg, 160.02 cm) jl7 ED Course: 08:25 Patient arrived in ED. jl7 08:25 Venancio Murray MD is Attending Physician. kdr 08:36 Triage completed. jl7 08:39 Arm band placed on right wrist. jl7 08:44 Misty Thomas RN is Primary Nurse. jl7 08:44 Patient has correct armband on for positive identification. Placed in gown. Bed in low jl7 position. Call light in reach. Side rails up X2. monitoring manager on. Pulse ox on. NIBP on. 08:55 Inserted saline lock: 20 gauge in right hand, using aseptic technique. Blood collected. jl7 08:55 Initial lab(s) drawn, by hi, sent to lab. First set of blood cultures drawn by hi. jl7 09:03 Second set of blood cultures drawn by hi. jl7 09:33 Chest Single View XRAY In Process Unspecified. EDMS 10:05 CT Abd/Pelvis - Without Contrast In Process Unspecified. EDMS 10:12 Notified ED physician of a critical lab result(s). Crea 5.07 Notified primary nurse of. ca1 11:00 COVID swab sent to lab. Flu and/or RSV swab sent to lab. jl7 11:27 Urine collected: straight cath specimen, cloudy. Straight cath inserted, using sterile jl7 technique, 16 Fr. Specimen obtained. Returned cloudy urine. Patient tolerated well. 12:20 Lauren Patiño MD is Hospitalizing Provider. kdr 14:14 No provider procedures requiring assistance completed. Patient admitted, IV remains in jl7 place. intact, No redness/swelling at site. 19:09 Primary Nurse role handed off by Misty Thomas RN jl7 19:40 Hao Nathan RN is Primary Nurse. mg2 Administered Medications: 09:13 Drug: Tylenol 650 mg Route: PO; jl7 10:38 Follow up: Response: Temperature is decreased jl7 09:30 Drug: NS 0.9% (30 ml/kg) 30 ml/kg Route: IV; Rate: bolus; Site: right hand; jl7 10:30 Follow up: IV Status: Completed infusion; IV Intake: 1000ml jl7 13:00 Follow up: IV Intake: 250ml jl7 09:45 Drug: morphine 4 mg Route: IVP; Site: right hand; jl7 10:00 Follow up: Response: No adverse reaction; Pain is unchanged, physician notified jl7 09:45 Drug: Zofran (Ondansetron) 4 mg Route: IVP; Site: right hand; jl7 10:00 Follow up: Response: No adverse reaction; Nausea is decreased jl7 12:19 Drug: fentaNYL (PF) 25 mcg Route: IVP; Site: right hand; jl7 12:50 Follow up: Response: No adverse reaction; Pain is unchanged, physician notified jl7 12:50 Drug: fentaNYL (PF) 25 mcg Route: IVP; Site: right hand; jl7 13:10 Follow up: Response: No adverse reaction; Pain is decreased jl7 14:13 Drug: fentaNYL (PF) 25 mcg Route: IVP; Site: right hand; jl7 14:40 Follow up: Response: No adverse reaction; Pain is decreased jl7 17:00 Drug: fentaNYL (PF) 25 mcg Route: IVP; Site: right hand; jl7 17:30 Follow up: Response: No adverse reaction; Pain is decreased jl7 Intake: 10:30 IV: 1000ml; Total: 1000ml. jl7 13:00 IV: 250ml; Total: 1250ml. jl7 Outcome: 12:25 Decision to Hospitalize by Provider. kdr 19:40 Admitted to Med/surg accompanied by nurse, via stretcher, room 228, with chart, Report mg2 called to BLAIR Brumfield 19:40 Condition: stable 19:40 Instructed on the need for admit, Demonstrated understanding of instructions. 20:15 Patient left the ED. mg2 Signatures: Dispatcher [employer] Venancio Hercules MD MD kdr Leal, Jahala RN RN jl7 Arvind Leslie RN RN jHao Bennett RN BLAIR mg2 Marian Chapa RN RN ca1 Corrections: (The following items were deleted from the chart) 14:05 14:05 IV Status: Completed infusion; IV Intake: 1000ml prabha jlShade
--- NOTE | 2020-05-03 12:26 | EDPHYS ---
Physician Documentation [facility] Name: Abby Meredith Age: 65 yrs Sex: Female : 1955 Arrival Date: 05/03/2020 Time: 08:25 Bed 18 Private MD: ED Physician Venancio Murray HPI: 05/03 10:21 This 65 yrs old Female presents to ER via EMS with complaints of Abdominal kdr Pain. 10:21 The patient presents with abdominal pain right lower quadrant. Onset: The kdr symptoms/episode began/occurred last night. The symptoms do not radiate. Associated signs and symptoms: Pertinent positives: nausea, vomiting, and diarrhea, Pertinent negatives: constipation, dysuria, fever, headache, hematuria, palpitations, shortness of breath, vaginal discharge. The symptoms are described as achy, constant, sharp, steady. Modifying factors: The symptoms are alleviated by nothing, the symptoms are aggravated by breathing deeply, movement, touching the area, walking. Severity of pain: At its worst the pain was moderate severe just prior to arrival, in the emergency department the pain is unchanged. The patient has not experienced similar symptoms in the past. The patient has not recently seen a physician. Has had her appendix out at age 9. Historical: - Allergies: 08:39 PENICILLINS; jl7 - Home Meds: 08:39 aspirin 81 mg Oral chew 1 tab once daily [Active]; carvedilol 12.5 mg oral tab 1 tab jl7 every 12 hours [Active]; gabapentin 100 mg oral cap [Active]; glipizide 5 mg oral tab [Active]; Lasix 40 mg oral tab 2 times per day [Active]; losartan 50 mg oral tab 1 tab 2 times per day [Active]; Norvasc 10 mg Oral tab 1 tab once daily [Active]; - PMHx: 08:39 CHF; Diabetes - IDDM; Hyperlipidemia; Hypertension; Dialysis; M-W-F; jl7 - PSHx: 08:39 Appendectomy; jl7 - Immunization history:: Adult Immunizations up to date, Pneumococcal vaccine is up to date, Flu vaccine is up to date. - Social history:: Smoking status: Patient denies any tobacco usage or history of. ROS: 10:21 Constitutional: Negative for fever, chills, and weight loss, Eyes: Negative for injury, kdr pain, redness, and discharge, ENT: Negative for injury, pain, and discharge, Neck: Negative for injury, pain, and swelling, Cardiovascular: Negative for chest pain, palpitations, and edema, Respiratory: Negative for shortness of breath, cough, wheezing, and pleuritic chest pain, Back: Negative for injury and pain, : Negative for injury, bleeding, discharge, and swelling, MS/Extremity: Negative for injury and deformity, Skin: Negative for injury, rash, and discoloration, Neuro: Negative for headache, weakness, numbness, tingling, and seizure activity. Psych: Negative for depression, anxiety, suicide ideation, homicidal ideation, and hallucinations, Allergy/Immunology: Negative for hives, rash, and allergies, Endocrine: Negative for neck swelling, polydipsia, polyuria, polyphagia, and marked weight changes, Hematologic/Lymphatic: Negative for swollen nodes, abnormal bleeding, and unusual bruising. 10:21 Abdomen/GI: Positive for abdominal pain, nausea, vomiting, and diarrhea, Negative for abdominal distension, anorexia, dysphagia, hematemesis, black/tarry stool, rectal pain. Exam: 10:21 Constitutional: This is a well developed, well nourished patient who is awake, alert, kdr and in no acute distress. Head/Face: Normocephalic, atraumatic. Eyes: Pupils equal round and reactive to light, extra-ocular motions intact. Lids and lashes normal. Conjunctiva and sclera are non-icteric and not injected. Cornea within normal limits. Periorbital areas with no swelling, redness, or edema. Neck: Trachea midline, no thyromegaly or masses palpated, and no cervical lymphadenopathy. Supple, full range of motion without nuchal rigidity, or vertebral point tenderness. No Meningismus. Chest/axilla: Normal chest wall appearance and motion. Nontender with no deformity. No lesions are appreciated. Cardiovascular: Regular rate and rhythm with a normal S1 and S2. No gallops, murmurs, or rubs. Normal PMI, no JVD. No pulse deficits. Respiratory: Lungs have equal breath sounds bilaterally, clear to auscultation and percussion. No rales, rhonchi or wheezes noted. No increased work of breathing, no retractions or nasal flaring. Back: No spinal tenderness. No costovertebral tenderness. Full range of motion. Skin: Warm, dry with normal turgor. Normal color with no rashes, no lesions, and no evidence of cellulitis. MS/ Extremity: Pulses equal, no cyanosis. Neurovascular intact. Full, normal range of motion. Neuro: Awake and alert, GCS 15, oriented to person, place, time, and situation. Cranial nerves II-XII grossly intact. Motor strength 5/5 in all extremities. Sensory grossly intact. Cerebellar exam normal. Normal gait. Psych: Awake, alert, with orientation to person, place and time. Behavior, mood, and affect are within normal limits. 10:21 Abdomen/GI: Inspection: obese Bowel sounds: active, Palpation: soft, moderate abdominal tenderness, in the right lower quadrant. 16:32 ECG was reviewed by the Attending Physician. kdr Vital Signs: 08:25 BP 159 / 72; Pulse 101; Resp 19; Temp 101.6; Pulse Ox 100% ; Weight 81.65 kg; Height 5 7 ft. 3 in. (160.02 cm); Pain 10/10; 09:15 BP 131 / 60; Pulse 92; Resp 17; Pulse Ox 96% ; jl7 10:00 BP 128 / 39; Pulse 82; Resp 17; Pulse Ox 98% ; jl7 10:39 Temp 101.1; jl7 11:00 BP 103 / 36; jl7 11:01 Pulse 86; Resp 17 S; Pulse Ox 98% on 2 lpm NC; jl7 12:00 BP 105 / 43; Pulse 83; Resp 17 S; Pulse Ox 98% on 2 lpm NC; jl7 12:00 Temp 100.5(O); jl7 13:22 BP 98 / 43; Pulse 86; Resp 17 S; Pulse Ox 99% on R/A; jd3 14:07 BP 117 / 43; Pulse 87; Resp 15; Pulse Ox 87% ; jl7 15:47 BP 117 / 53; Pulse 90; Resp 15; Pulse Ox 100% ; jl7 18:00 BP 129 / 52; Pulse 88; Resp 17 S; Pulse Ox 100% on 2 lpm NC; jl7 19:25 BP 129 / 76; Pulse 94; Resp 18; Temp 100.5(A); Pulse Ox 99% on 2 lpm NC; mg2 08:25 Body Mass Index 31.89 (81.65 kg, 160.02 cm) jl7 MDM: 10:21 Data reviewed: vital signs, nurses notes, lab test result(s), radiologic studies. kdr Counseling: I had a detailed discussion with the patient and/or guardian regarding: the historical points, exam findings, and any diagnostic results supporting the discharge/admit diagnosis, lab results, radiology results. 12:25 Patient medically screened. kdr 05/03 09:12 Order name: Amylase, Serum; Complete Time: 12:02 [facility] 05/03 09:12 Order name: Basic Metabolic Panel; Complete Time: 12:02 [facility] 05/03 09:12 Order name: Blood Culture Adult (2) [facility] 05/03 09:12 Order name: CBC with Diff; Complete Time: 12:02 [facility] 05/03 09:12 Order name: Ckmb; Complete Time: 12:02 [facility] 05/03 09:12 Order name: CPK; Complete Time: 12:02 [facility] 05/03 09:12 Order name: Lactate; Complete Time: 12:02 [facility] 05/03 09:13 Order name: LFT's; Complete Time: 12:02 [facility] 05/03 09:13 Order name: Lipase; Complete Time: 12:02 [facility] 05/03 09:13 Order name: Procalcitonin; Complete Time: 12:02 [facility] 05/03 09:13 Order name: Protime (+inr); Complete Time: 12:02 [facility] 05/03 09:13 Order name: Ptt, Activated; Complete Time: 12:02 [facility] 05/03 09:13 Order name: Troponin (emerg Dept Use Only); Complete Time: 12:02 [facility] 05/03 09:13 Order name: Urine Microscopic Only; Complete Time: 12:02 [facility] 05/03 10:03 Order name: CBC Smear Scan; Complete Time: 12:02 EDDE 05/03 10:44 Order name: Flu ca1 05/03 10:44 Order name: COVID-19 ca1 05/03 11:20 Order name: Influenza Screen (A ; Complete Time: 12:02 [facility] 05/03 11:37 Order name: Urine Dipstick--Ancillary (enter results); Complete Time: 15:22 bd 05/03 11:46 Order name: Urine Culture [facility] 05/03 12:20 Order name: Lactate Sepsis 2 HR Follow-up; Complete Time: 12:26 [facility]DE 05/03 12:36 Order name: SARS-COV-2 RT PCR; Complete Time: 15:22 EDMS 05/03 12:52 Order name: Urinalysis EDDE 05/03 12:52 Order name: CBC with Automated Diff EDMS 05/03 12:52 Order name: CBC with Automated Diff EDMS 05/03 12:52 Order name: Comprehensive Metabolic Panel EDDE 05/03 09:13 Order name: Chest Single View XRAY; Complete Time: 12:02 7 05/03 09:13 Order name: Accucheck; Complete Time: 09:50 7 05/03 09:13 Order name: Cardiac monitoring; Complete Time: 09:50 7 05/03 09:13 Order name: EKG - Nurse/Tech; Complete Time: 10:39 7 05/03 09:13 Order name: IV Saline Lock - Large Bore; Complete Time: 09:50 [facility] 05/03 09:13 Order name: Labs collected and sent; Complete Time: 09:50 [facility] 05/03 09:13 Order name: O2 Per Protocol; Complete Time: 09:50 [facility] 05/03 09:13 Order name: O2 Sat Monitoring; Complete Time: 09:50 [facility] 05/03 09:13 Order name: Urine Dipstick-Ancillary (obtain specimen); Complete Time: 11:30 [facility] 05/03 09:17 Order name: IV Saline Lock; Complete Time: 09:51 kdr 05/03 09:17 Order name: Labs collected and sent; Complete Time: 09:51 kdr 05/03 09:47 Order name: CT Abd/Pelvis - Without Contrast; Complete Time: 12:02 kdr 05/03 12:51 Order name: CONS Physician Consult EDDE 05/03 12:51 Order name: NPO EDMS 05/03 12:52 Order name: Comprehensive Metabolic Panel EDMS 05/03 12:52 Order name: Magnesium EDMS 05/03 12:52 Order name: Magnesium EDMS 05/03 12:52 Order name: Phosphorus EDMS 05/03 12:52 Order name: Phosphorus EDMS 05/03 12:52 Order name: Protime (+INR) EDMS 05/03 12:52 Order name: Protime (+INR) EDMS 05/03 12:52 Order name: PTT, Activated Partial Thromb EDMS 05/03 12:52 Order name: PTT, Activated Partial Thromb EDMS 05/03 19:39 Order name: COVID-19 mg2 EC:32 Rate is 87 beats/min. Rhythm is regular, Sinus Rhythm with No ectopy, Left bundle kdr branch block. QRS [place] is Normal. [place] interval is normal. QRS interval is normal. QT interval is normal. Administered Medications: 09:13 Drug: Tylenol 650 mg Route: PO; jl7 10:38 Follow up: Response: Temperature is decreased jl7 09:30 Drug: NS 0.9% (30 ml/kg) 30 ml/kg Route: IV; Rate: bolus; Site: right hand; jl7 10:30 Follow up: IV Status: Completed infusion; IV Intake: 1000ml jl7 13:00 Follow up: IV Intake: 250ml jl7 09:45 Drug: morphine 4 mg Route: IVP; Site: right hand; jl7 10:00 Follow up: Response: No adverse reaction; Pain is unchanged, physician notified jl7 09:45 Drug: Zofran (Ondansetron) 4 mg Route: IVP; Site: right hand; jl7 10:00 Follow up: Response: No adverse reaction; Nausea is decreased jl7 12:19 Drug: fentaNYL (PF) 25 mcg Route: IVP; Site: right hand; jl7 12:50 Follow up: Response: No adverse reaction; Pain is unchanged, physician notified jl7 12:50 Drug: fentaNYL (PF) 25 mcg Route: IVP; Site: right hand; jl7 13:10 Follow up: Response: No adverse reaction; Pain is decreased jl7 14:13 Drug: fentaNYL (PF) 25 mcg Route: IVP; Site: right hand; jl7 14:40 Follow up: Response: No adverse reaction; Pain is decreased jl7 17:00 Drug: fentaNYL (PF) 25 mcg Route: IVP; Site: right hand; jl7 17:30 Follow up: Response: No adverse reaction; Pain is decreased jl7 Disposition: 05/03/20 12:25 Hospitalization ordered by Lauren Patiño for Inpatient Admission. Preliminary diagnosis are Abdominal and pelvic pain, Cecal Inflammation. - Bed requested for Telemetry/MedSurg (Inpatient). - Status is Inpatient Admission. mg2 - Condition is Fair. - Problem is new. - Symptoms have improved. Signatures: Dispatcher [employer] EDMS Xenia Donnelly RN RN mw Venancio Murray MD MD [facility] Misty Thomas RN RN jl7 Hao Nathan RN RN mg2 Corrections: (The following items were deleted from the chart) 11:16 09:18 BASIC METABOLIC PANEL+C.LAB.BRZ ordered. EDMS EDMS 11:16 09:18 CBC+H.LAB.BRZ ordered. EDMS EDMS 11:16 09:18 HEPATIC FUNCTION+C.LAB.BRZ ordered. EDMS EDMS 11:16 09:18 LIPASE+C.LAB.BRZ ordered. EDMS EDMS 19:23 12:25 Hospitalization Ordered by Lauren Patiño MD for Inpatient Admission. Preliminary mw diagnosis is Abdominal and pelvic pain; Cecal Inflammation. Bed requested for Telemetry/MedSurg (Inpatient). Status is Inpatient Admission. Condition is Fair. Problem is new. Symptoms have improved. kdr 20:15 19:23 05/03/2020 12:25 Hospitalization Ordered by Lauren Patiño MD for Inpatient mg2 Admission. Preliminary diagnosis is Abdominal and pelvic pain; Cecal Inflammation. Bed requested for Telemetry/MedSurg (Inpatient). Status is Inpatient Admission. Condition is Fair. Problem is new. Symptoms have improved. mw
[2020-05-03] MEDS ORDERED: ACETAMINOPHEN 500 MG TAB PO PRN (12:44)
[2020-05-03] MEDS ORDERED: ONDANSETRON 4 MG/2 ML VIAL IV PRN (12:44)
[2020-05-03] MEDS ORDERED: MORPHINE 4 MG/ML SYR IV PRN (12:44)
[2020-05-03] MEDS ORDERED: NA CHLORIDE 0.9% 250 ML ONE (12:54)
[2020-05-03 13:55] LABS: Urine Blood 2+ (NEG); Urine Glucose NEGATIVE (NEG); Urine Protein 3+ (NEG); Urine Specific Gravity >1.030 (1.005-1.030)
[2020-05-03] MEDS ORDERED: HYDROCORTISONE SUC 100 MG INJ IV ONE (17:00)
--- NOTE | 2020-05-03 20:28 | P.CNS ---
Date of Consult: 05/03/20 Reason for Consult: ESRD Requesting Physician: Lauren Patiño Chief Complaint: Abdominal pain History of Present Illness: 65 yo HF CKD presented to the ER with 24 hours of moderate, progressive right greater than left lower abdominal pain with associated N/V and diarrhea. She missed her HD today. 10:21 This 65 yrs old Female presents to ER via EMS with complaints of Abdominal kdr Pain. 10:21 The patient presents with abdominal pain right lower quadrant. Onset: The kdr symptoms/episode began/occurred last night. The symptoms do not radiate. Associated signs and symptoms: Pertinent positives: nausea, vomiting, and diarrhea, Pertinent negatives: constipation, dysuria, fever, headache, hematuria, palpitations, shortness of breath, vaginal discharge. The symptoms are described as achy, constant, sharp, steady. Modifying factors: The symptoms are alleviated by nothing, the symptoms are aggravated by breathing deeply, movement, touching the area, walking. Severity of pain: At its worst the pain was moderate severe just prior to arrival, in the emergency department the pain is unchanged. The patient has not experienced similar symptoms in the past. The patient has not recently seen a physician. Has had her appendix out at age 9. Allergies Penicillins Allergy (Severe, Verified 12/31/11 11:04) Anaphylaxis Home medications list reviewed: Yes Home Medications: Metformin HCl [Glucophage] 1,000 mg PO BID 05/30/18 glipiZIDE [Glucotrol] 10 mg PO BID 05/30/18 Furosemide [Lasix] 40 mg PO BID #60 tablet 06/04/18 Metoprolol Tartrate [Lopressor*] 12.5 mg PO BID 6AM 6PM #60 tab 06/04/18 Pantoprazole Sodium [Protonix] 40 mg PO BID #60 tablet. 06/04/18 Spironolactone [Aldactone*] 25 mg PO BID #60 tab 06/04/18 Metoclopramide HCl [Reglan] 5 mg PO DAILY PRN #30 tablet 06/08/18 Pravastatin Sodium 40 mg PO DAILY 06/08/18 - Past Medical/Surgical History Diabetic: Yes -: HTN -: DM II -: obesity -: dyslipidemia -: CHF -: spider bite at least ten yearas ago -: hernia repair X 2 -: appendectomy - Family History Mother Medical History: Diabetes, Kidney disease - Social History Alcohol use: No CD- Drugs: No Caffeine use: Yes Review of Systems 10-point ROS is otherwise unremarkable General: Weakness, Malaise Cardiovascular: Edema Gastrointestinal: Nausea, Vomiting, Abdominal Pain, Diarrhea Neurological: Weakness Physical Examination General: In no apparent distress, Oriented x3, Cooperative, Moderate distress HEENT: Atraumatic, Normocephalic Neck: Supple Respiratory: Diminished Cardiovascular: Regular rate/rhythm, Edema Gastrointestinal: Non-distended, No guarding, Tenderness Musculoskeletal: No clubbing, No contractures Integumentary: No rashes, No cyanosis Neurological: Normal speech Laboratory Data (last 24 hrs) 05/03/20 09:17: WBC Cancelled, Hgb Cancelled, Hct Cancelled, Plt Count Cancelled 05/03/20 09:17: Sodium Cancelled, Potassium Cancelled, BUN Cancelled, Creatinine Cancelled, Glucose Cancelled, Total Bilirubin Cancelled, AST Cancelled, ALT Cancelled, Alkaline Phosphatase Cancelled, Lipase Cancelled 05/03/20 08:55: PT 13.0 H, INR 1.10, APTT 30.4 05/03/20 08:55: WBC 15.4 H, Hgb 10.4 L, Hct 32.4 L, Plt Count 255 05/03/20 08:55: Sodium 138, Potassium 4.5, BUN 38 H, Creatinine 5.07 H*, Glucose 200 H, Total Bilirubin 0.4, AST 24, ALT 35, Alkaline Phosphatase 92, Amylase 68, Lipase 230 Imagings Data: EXAM DESCRIPTION: CT - Abdomen Pelvis Wo Contrast - 05/03/2020 10:05 am CLINICAL HISTORY: Abdominal pain. RLQ pain;Abd pain COMPARISON: Abdomen Pelvis W Contrast dated 05/30/2018 TECHNIQUE: CT imaging of the abdomen and pelvis was performed without contrast. Solid organ, bowel and vascular assessment is limited due to lack of IV and oral contrast. All CT scans are performed using dose optimization technique as appropriate and may include automated exposure control or mA/KV adjustment according to patient size. FINDINGS: Mild linear subsegmental atelectasis in both lung bases.Cholecystectomy clips. The liver, spleen, pancreas, adrenal glands and left kidney are within normal limits for a limited non-contrast examination.Punctate 1-2 mm calculus is seen inferior right renal calyx without hydronephrosis appear No bowel obstruction, free air, free fluid or abscess. Thickening of the giron of the cecum noted somewhat asymmetric in nature, with right-sided lateral wall thickening up to 24 mm noted. Terminal ileum appears mildly thickened as well. Appendectomy. Midline hernia repair changes seen. Small fat containing left inguinal hernia. The osseous structures are within normal limits. IMPRESSION: Thickening of the cecal wall is noted up to 24 mm and somewhat asymmetric. Inflammatory condition such S typhlitis or other infection /inflammation the cecum is possible. The diagnosis of concern would be malignancy in the cecum and followup colonoscopy would be advised. EXAM DESCRIPTION: RAD - Chest Single View - 05/03/2020 9:32 am CLINICAL HISTORY: FEVER Chest pain. COMPARISON: Chest Single View dated 06/07/2018; Chest Single View dated 06/02/2018; Abdomen 1 View (KUB) dated 06/01/2018; Chest Pa And Lat (2 Views) dated 05/31/2018 FINDINGS: Portable technique limits examination quality. Mild interstitial pulmonary edema. The heart is upper limit of normal in size. Left-sided venous catheter has tip in the right atrium. IMPRESSION: Mild CHF versus volume overload pattern. Conclusions/Impression: A/ ESRD on HD HTN with CKD/ CHF Diastolic CHF, chronic DM II with CKD Anemia in CKD ÁNGEL/ Secondary HyperPTH Acute colitis with abdominal pain. Acute cystitis P/ Continue current POC and Medications. Arrange for acute HD tomorrow. Continue abx and steroids. Pain control as ordered. Follow up urine culture. GI to see the patient. NPO No NSAIDs. AM labs. Daily weight. Thank you kindly for the consultation.
[2020-05-03] MEDS: METRONIDAZOLE 500mg IVPB 500 MG/100 ML BAG IV SCH (20:33)
[2020-05-03] MEDS ORDERED: NA CHLORIDE 0.9% 1,000 ML IV PRN (20:40)
[2020-05-03] MEDS ORDERED: METHYLPREDNISOLONE 125 MG INJ IV SCH (22:00)
[2020-05-03] MEDS: FENTANYL CITR 100 MCG/2 ML IV PRN (22:52)
[2020-05-03] MEDS: ONDANSETRON 4 MG/2 ML VIAL IV PRN (22:52)
[2020-05-03] MEDS: HEPARIN 5000 UNIT/ML 1 ML VIAL SQ SCH (22:57)
[2020-05-04] MEDS: METRONIDAZOLE 500mg IVPB 500 MG/100 ML BAG IV SCH ×3 (01:20→17:20)
[2020-05-04] MEDS: METHYLPREDNISOLONE 125 MG INJ IV SCH ×3 (01:22→13:33)
[2020-05-04 05:09] LABS: Urine Appearance TURBID; Urine Blood 3+ (NEG); Urine Color DK YELLOW; Urine Glucose NEGATIVE (NEG); Urine Protein 3+ (NEG); Urine Urobilinogen 0.2 mg/dL (0.2-1.0)
[2020-05-04 05:10] LABS: Urine Microscopic Reflex ORDER UMIC
[2020-05-04 05:17] LABS: Urine Bilirubin NEGATIVE (NEG)
[2020-05-04] MEDS: FENTANYL CITR 100 MCG/2 ML IV PRN ×3 (05:27→17:29)
[2020-05-04] MEDS: ONDANSETRON 4 MG/2 ML VIAL IV PRN (05:27)
[2020-05-04 05:32] VITALS: BMI 35.3
[2020-05-04 06:00] LABS: Urine Bacteria LOADED /HPF (<20); Urine RBC NONE SEEN /HPF (NONE SEEN); Urine Urothelial Cells <5 /HPF (NONE SEEN); Urine Yeast MANY (NONE SEEN); Urine Yeast with Hyphae PRESENT
[2020-05-04 06:17] LABS: Absolute Lymphocytes (CBC) 0.6 K/uL (0.7-4.9); Basophils % 0.2 % (0-1.3); Hematocrit 29.4 % (36.0-45.0); Lymphocytes % 3.3 % (15.3-44.8); MPV 8.4 fL (7.6-11.3); RBC Red Blood Cell Count 3.25 M/uL (3.86-4.86)
[2020-05-04 06:50] LABS: Albumin 2.8 g/dL (3.4-5.0); Bilirubin Total 0.4 mg/dL (0.2-1.0); Magnesium 2.2 mg/dL (1.8-2.4); Phosphorus 7.3 mg/dL (2.5-4.9); Potassium 4.9 mmol/L (3.5-5.1); Protein, Total 6.7 g/dL (6.4-8.2); Protime INR 1.36
[2020-05-04] MEDS: HEPARIN 5000 UNIT/ML 1 ML VIAL SQ SCH ×2 (08:11→22:01)
--- NOTE | 2020-05-04 09:39 | P.HP ---
Certification for Inpatient Patient admitted to: Inpatient With expected LOS: >2 Midnights Patient will require the following post-hospital care: None Practitioner: I am a practitioner with admitting privileges, knowledge of patient current condition, hospital course, and medical plan of care. Services: Services provided to patient in accordance with Admission requirements found in Title 42 Section 412.3 of the Code of Federal Regulations Patient History Date of Service: 05/03/20 Reason for admission: Abdominal pain History of Present Illness: Patient is a 65-year-old female who came to the hospital with abdominal pain. Patient was having pain in the right lower quadrant. She had been having symptoms for the last 24 hr with no relief so she decided to get evaluated. In the emergency room patient had imaging studies which revealed inflammatory changes of the cecum. Patient was admitted with colitis/typhlitis. Patient was found have COVID-19 in July. Since then patient developed renal failure and ended up on hemodialysis. Patient's renal function has been fairly stable. Patient will be admitted to the hospital for further evaluation. Allergies Penicillins Allergy (Severe, Verified 12/31/11 11:04) Anaphylaxis Home Medications: glipiZIDE [Glucotrol] 5 mg PO BID 05/30/18 Furosemide [Lasix] 40 mg PO BID #60 tablet 06/04/18 Amlodipine [Norvasc] 10 mg PO DAILY 05/03/20 Aspirin Chewable [Aspirin Chewable*] 81 mg PO BEDTIME 05/03/20 Carvedilol [Coreg] 3.125 mg PO BID 05/03/20 Cholecalciferol (Vitamin D3) [Vitamin D3] 1,000 unit PO DAILY 05/03/20 Dialyvite 800 Ultra 1 tab PO BEDTIME 05/03/20 Gabapentin [Neurontin] 200 mg PO TID 05/03/20 Losartan Potassium [Cozaar] 50 mg PO BID 05/03/20 - Past Medical/Surgical History Has patient received pneumonia vaccine in the past: Yes Diabetic: Yes -: HTN -: DM II -: obesity -: dyslipidemia -: CHF -: spider bite at least ten years ago -: hernia repair X 2 -: appendectomy -: normal spontaneous delivery - Family History Mother Medical History: Diabetes, Kidney disease Father Medical History: Other (see notes) Notes: Brain aneurysm - Social History Smoking Status: Former smoker Alcohol use: No CD- Drugs: No Caffeine use: Yes Place of Residence: Home Review of Systems 10-point ROS is otherwise unremarkable Physical Examination - Vital Signs Temperature: 98.4 F Blood Pressure: 136/63 Pulse: 85 Respirations: 18 Pulse Ox (%): 94 - Physical Exam General: Alert, In no apparent distress, Oriented x3 HEENT: Atraumatic, PERRLA, Mucous membr. moist/pink, EOMI, Sclerae nonicteric Neck: Supple, 2+ carotid pulse no bruit, No LAD, Without JVD or thyroid abnormality Respiratory: Clear to auscultation bilaterally, Normal air movement Cardiovascular: Regular rate/rhythm, Normal S1 S2 Gastrointestinal: Normal bowel sounds, Soft and benign, Non-distended, No rebound, No guarding, Tenderness Musculoskeletal: No clubbing, No swelling, No tenderness Neurological: Normal speech, Normal strength at 5/5 x4 extr, Normal tone, Sensation intact, Cranial nerves 3-12 intact, Normal affect Lymphatics: No axilla or inguinal lymphadenopathy - Studies Laboratory Data (last 24 hrs) 05/03/20 09:17: WBC Cancelled, Hgb Cancelled, Hct Cancelled, Plt Count Cancelled 05/03/20 09:17: Sodium Cancelled, Potassium Cancelled, BUN Cancelled, Creatinine Cancelled, Glucose Cancelled, Total Bilirubin Cancelled, AST Cancelled, ALT Cancelled, Alkaline Phosphatase Cancelled, Lipase Cancelled 05/03/20 08:55: PT 13.0 H, INR 1.10, APTT 30.4 05/03/20 08:55: WBC 15.4 H, Hgb 10.4 L, Hct 32.4 L, Plt Count 255 05/03/20 08:55: Sodium 138, Potassium 4.5, BUN 38 H, Creatinine 5.07 H*, Glucose 200 H, Total Bilirubin 0.4, AST 24, ALT 35, Alkaline Phosphatase 92, Amylase 68, Lipase 230 Microbiology Data (last 24 hrs): 05/03/20 10:55 Nasopharnyx Influenza Type A Antigen Screen - Final 05/03/20 10:55 Nasopharnyx Influenza Type B Antigen Screen - Final Assessment & Plan - Problems (Diagnosis) (1) Typhlitis Current Visit: Yes Status: Acute (2) CHF (congestive heart failure), NYHA class IV Onset Date: 06/09/18 Current Visit: No Status: Acute Qualifiers: (3) Diabetes mellitus Onset Date: 06/09/18 Current Visit: No Status: Chronic (4) HTN (hypertension) Onset Date: 06/09/18 Current Visit: No Status: Chronic Qualifiers: (5) History of 2019 novel coronavirus disease (COVID-19) Current Visit: Yes Status: Acute - Plan 1. Continue with gentle IV hydration 2. Continue with IV antibiotics 3. Continue with pain control 4. NPO 5. GI & general surgery consultation; 6. Serial H&H, and we will monitor CBC, BMP, LFTs and lipase along with electrolytes. 7. GI and DVT prophylaxis Discharge Plan: Home Plan to discharge in: Greater than 2 days - Advance Directives Does patient have a Living Will: No Does patient have a Durable POA for Healthcare: No - Code Status/Comfort Care Code Status Assessed: Yes Code Status: Full Code Critical Care: No Time Spent Managing PTS Care (In Minutes): 45
[2020-05-04] MEDS: Levofloxacin500mg IV 500 MG/100 ML BAG IV SCH ×2 (18:01→18:43)
--- NOTE | 2020-05-04 20:53 | P.PN ---
Date of Service: 05/04/20 Vital Signs Temp Pulse Resp BP Pulse Ox 97.8 F 81 18 155/65 H 95 05/04/20 16:00 05/04/20 16:00 05/04/20 17:59 05/04/20 16:00 05/04/20 17:59 Medications Acetaminophen (Tylenol -Extra Strength) 500 mg PO Q4HP PRN PRN Reason: Pain/fever Stop: 06/02/20 12:45 Fentanyl Citrate (Sublimaze) 25 mcg IV Q4H PRN PRN Reason: Pain scale 8-10 (Severe) Stop: 06/02/20 16:44 Last Admin: 05/04/20 17:29 Dose: 25 mcg Documented by: Heparin Sodium (Porcine) (Heparin 5,000 Units/Ml) 5,000 unit SQ Q12HR SHIMA Stop: 06/02/20 21:01 Last Admin: 05/04/20 08:11 Dose: 5,000 unit Documented by: Heparin Sodium (Porcine) (Heparin 1,000 Units/Ml) 6,000 unit IV EVERY HD PRN PRN Reason: AFTER EACH Stop: 06/02/20 20:41 Last Admin: 05/04/20 12:51 Dose: 6,000 unit Documented by: Metronidazole/Sodium Chloride (Flagyl 500mg/100 Ml Iv Premix) 500 mg in 100 mls @ 200 mls/hr IV Q8HR SHIMA; Protocol Stop: 06/02/20 17:01 Last Admin: 05/04/20 17:20 Dose: 100 mls Documented by: Levofloxacin/Dextrose (Levaquin 500 Mg/100 Ml Ivpb) 500 mg in 100 mls @ 100 mls/hr IV AFTER EACH DIALYSIS SHIMA; Protocol Stop: 06/02/20 13:01 Last Admin: 05/04/20 18:01 Dose: 100 mls Documented by: Albumin Human (Albumin 25%) 50 mls @ 100 mls/hr IV EVERY HD SHIMA Stop: 06/02/20 21:01 Mannitol (Mannitol 12.5 Gm/50 Ml Vial) 12.5 gm IV EVERY HD PRN PRN Reason: Titrate to SBP (MUST DEFINE) Stop: 06/02/20 20:41 Ondansetron HCl (Zofran) 4 mg IV Q6HP PRN PRN Reason: NAUSEA / VOMITING Stop: 06/02/20 12:45 Last Admin: 12/03/20 05:27 Dose: 4 mg Documented by: Sodium Chloride (Normal Saline Flush) 10 ml IV BID SHIMA Stop: 06/02/20 21:01 Last Admin: 05/04/20 08:17 Dose: 10 ml Documented by: Microbiology Results 05/03/20 09:04 Blood - Blood Aerobic Blood Culture - Preliminary No growth in 24 hours. 05/03/20 09:04 Blood - Blood Anaerobic Blood Culture - Preliminary No growth in 24 hours. 05/03/20 08:55 Blood - Blood Aerobic Blood Culture - Preliminary No growth in 24 hours. 05/03/20 08:55 Blood - Blood Anaerobic Blood Culture - Preliminary No growth in 24 hours. 05/03/20 11:20 Clean Catch Urine [place] Count - Preliminary >100,000 CFU/ML. 05/03/20 11:20 Clean Catch Urine - Preliminary MIXED [place]. 05/03/20 10:55 Nasopharnyx Influenza Type A Antigen Screen - Final 05/03/20 10:55 Nasopharnyx Influenza Type B Antigen Screen - Final Assessment/ Plan: Nephrology CPS stable without CP or SOB. No acute events overnight. Persistent abdominal pain. Vitals, medications, blood work and imaging reviewed in the chart. Physical Examination General: In no apparent distress, Oriented x3, Cooperative, Moderate distress HEENT: Atraumatic, Normocephalic Neck: Supple Respiratory: Diminished Cardiovascular: Regular rate/rhythm, Edema Gastrointestinal: Non-distended, No guarding, Tenderness Musculoskeletal: No clubbing, No contractures Integumentary: No rashes, No cyanosis Neurological: Normal speech Laboratory Data (last 24 hrs) 05/03/20 09:17: WBC Cancelled, Hgb Cancelled, Hct Cancelled, Plt Count Cancelled 05/03/20 09:17: Sodium Cancelled, Potassium Cancelled, BUN Cancelled, Creatinine Cancelled, Glucose Cancelled, Total Bilirubin Cancelled, AST Cancelled, ALT Cancelled, Alkaline Phosphatase Cancelled, Lipase Cancelled 05/03/20 08:55: PT 13.0 H, INR 1.10, APTT 30.4 05/03/20 08:55: WBC 15.4 H, Hgb 10.4 L, Hct 32.4 L, Plt Count 255 05/03/20 08:55: Sodium 138, Potassium 4.5, BUN 38 H, Creatinine 5.07 H*, Glucose 200 H, Total Bilirubin 0.4, AST 24, ALT 35, Alkaline Phosphatase 92, Amylase 68, Lipase 230 Imagings Data: EXAM DESCRIPTION: CT - Abdomen Pelvis Wo Contrast - 05/03/2020 10:05 am CLINICAL HISTORY: Abdominal pain. RLQ pain;Abd pain COMPARISON: Abdomen Pelvis W Contrast dated 05/30/2018 TECHNIQUE: CT imaging of the abdomen and pelvis was performed without contrast. Solid organ, bowel and vascular assessment is limited due to lack of IV and oral contrast. All CT scans are performed using dose optimization technique as appropriate and may include automated exposure control or mA/KV adjustment according to patient size. FINDINGS: Mild linear subsegmental atelectasis in both lung bases.Cholecystectomy clips. The liver, spleen, pancreas, adrenal glands and left kidney are within normal limits for a limited non-contrast examination.Punctate 1-2 mm calculus is seen inferior right renal calyx without hydronephrosis appear No bowel obstruction, free air, free fluid or abscess. Thickening of the giron of the cecum noted somewhat asymmetric in nature, with right-sided lateral wall thickening up to 24 mm noted. Terminal ileum appears mildly thickened as well. Appendectomy. Midline hernia repair changes seen. Small fat containing left inguinal hernia. The osseous structures are within normal limits. IMPRESSION: Thickening of the cecal wall is noted up to 24 mm and somewhat asymmetric. Inflammatory condition such S typhlitis or other infection/inflammation the cecum is possible. The diagnosis of concern would be malignancy in the cecum and followup colonoscopy would be advised. EXAM DESCRIPTION: RAD - Chest Single View - 05/03/2020 9:32 am CLINICAL HISTORY: FEVER Chest pain. COMPARISON: Chest Single View dated 06/07/2018; Chest Single View dated 06/02/2018; Abdomen 1 View (KUB) dated 06/01/2018; Chest Pa And Lat (2 Views) dated 05/31/2018 FINDINGS: Portable technique limits examination quality. Mild interstitial pulmonary edema. The heart is upper limit of normal in size. Left-sided venous catheter has tip in the right atrium. IMPRESSION: Mild CHF versus volume overload pattern. Conclusions/Impression: A/ ESRD on HD HTN with CKD/ CHF Diastolic CHF, chronic DM II with CKD Anemia in CKD ÁNGEL/ Secondary HyperPTH Acute colitis with abdominal pain. Acute cystitis P/ Continue current POC and Medications. Arrange for acute HD today. Continue abx and steroids. Pain control as ordered. Follow up urine culture. GI to see the patient. NPO No NSAIDs. AM labs. Daily weight.
[2020-05-05] MEDS: FENTANYL CITR 100 MCG/2 ML IV PRN ×3 (00:57→20:43)
[2020-05-05] MEDS: ONDANSETRON 4 MG/2 ML VIAL IV PRN ×2 (00:57→20:42)
[2020-05-05] MEDS: METRONIDAZOLE 500mg IVPB 500 MG/100 ML BAG IV SCH ×3 (01:03→16:14)
[2020-05-05 06:25] LABS: Absolute Lymphocytes (CBC) 0.6 K/uL (0.7-4.9); Basophils % 0.1 % (0-1.3); Hematocrit 29.8 % (36.0-45.0); Lymphocytes % 3.4 % (15.3-44.8); MPV 8.3 fL (7.6-11.3); RBC Red Blood Cell Count 3.37 M/uL (3.86-4.86)
[2020-05-05 06:36] LABS: Potassium 4.8 mmol/L (3.5-5.1)
[2020-05-05] MEDS ORDERED: CEFEPIME 1 GM/VIAL IV SCH (09:00)
[2020-05-05] MEDS ORDERED: CHOLESTYRAMINE/ASP 4 GM/PKT PO ONE (09:00)
[2020-05-05] MEDS: HEPARIN 5000 UNIT/ML 1 ML VIAL SQ SCH ×2 (09:34→20:48)
--- NOTE | 2020-05-05 10:10 | P.PN ---
Subjective Date of Service: 05/04/20 Subjective: No new changes, No C/O voiced Patient continues to have abdominal pain. At time they can be excruciating. Will go ahead and start her on clear liquids in the morning if she continues to improve and abdominal films look okay Review of Systems 10-point ROS is otherwise unremarkable Physical Examination - Vital Signs Temperature: 97.6 F Blood Pressure: 172/75 Pulse: 77 Respirations: 16 Pulse Ox (%): 95 - Physical Exam General: Alert, In no apparent distress, Oriented x3 Respiratory: Clear to auscultation bilaterally, Normal air movement Cardiovascular: Regular rate/rhythm, Normal S1 S2, No murmurs Gastrointestinal: Normal bowel sounds, Soft and benign, Non-distended, No rebound, No guarding, Tenderness Musculoskeletal: No clubbing, No swelling, No tenderness Neurological: Normal speech, Normal tone, Sensation intact, Cranial nerves 3-12 intact, Normal affect Lymphatics: No axilla or inguinal lymphadenopathy - Studies Medications List Reviewed: Yes Assessment & Plan - Problems (Diagnosis) (1) Typhlitis Current Visit: Yes Status: Acute (2) CHF (congestive heart failure), NYHA class IV Onset Date: 06/09/18 Current Visit: No Status: Acute Qualifiers: (3) Diabetes mellitus Onset Date: 06/09/18 Current Visit: No Status: Chronic (4) HTN (hypertension) Onset Date: 06/09/18 Current Visit: No Status: Chronic Qualifiers: (5) History of 2019 novel coronavirus disease (COVID-19) Current Visit: Yes Status: Acute - Plan 1. Hep-Lock IV because of end-stage renal disease; 2. Continue with IV antibiotics; GI recommended adding cefepime; also recommended Questran 3. Continue with pain control 4. NPO 5. GI & general surgery consultation appreciated 6. Serial H&H, and we will monitor CBC, BMP, LFTs and lipase along with electrolytes. 7. GI and DVT prophylaxis - Advance Directives Does patient have a Living Will: No Does patient have a Durable POA for Healthcare: No - Code Status/Comfort Care Code Status: Full Code Critical Care: No Time Spent Managing PTS Care (In Minutes): 35
[2020-05-05] MEDS: CEFEPIME/SWI 1gm 10 ML IV SCH (11:45)
--- NOTE | 2020-05-05 12:27 | RAD REPORT ---
EXAM DESCRIPTION: RAD - Abdomen W Erect - 05/05/2020 10:43 am CLINICAL HISTORY: Diverticulitis/abdominal pain/rule-out perforation COMPARISON: Abdomen Pelvis Wo Contrast dated 05/03/2020 TECHNIQUE: Supine and upright views of the abdomen were obtained. FINDINGS: Bowel gas pattern is nonspecific. Air and stool are seen in nondilated colon. Prominent sm all bowel loops are present. No free air or pneumatosis. No abnormal calcifications. IMPRESSION: No free air or other finding to suspect perforation.
[2020-05-05] MEDS: GABAPENTIN 100 MG CAP PO SCH ×2 (14:22→21:00)
[2020-05-05] MEDS: glipiZIDE 5 MG TAB PO SCH (16:14)
[2020-05-05] MEDS: FUROSEMIDE 40 MG TABLET PO SCH (16:14)
[2020-05-05] MEDS: CHOLESTYRAMINE/ASP 4 GM/PKT PO SCH (16:14)
[2020-05-05] MEDS: carvediloL 3.125 MG TAB PO SCH (20:46)
[2020-05-05] MEDS: ASPIRIN 81 MG CHEWABLE TABLET PO SCH (20:46)
[2020-05-05] MEDS: LOSARTAN POTASSIUM 50 MG TABLET PO SCH (20:46)
[2020-05-05] MEDS: MULTIVITAMINS,THERAPEUT 1 TAB PO SCH (20:49)
--- NOTE | 2020-05-05 21:47 | P.PN ---
Date of Service: 05/05/20 Vital Signs Temp Pulse Resp BP Pulse Ox 97.4 F 75 19 131/79 96 05/05/20 16:00 05/05/20 20:46 05/05/20 20:43 05/05/20 20:46 05/05/20 20:43 Medications Acetaminophen (Tylenol -Extra Strength) 500 mg PO Q4HP PRN PRN Reason: Pain/fever Stop: 06/02/20 12:45 Amlodipine Besylate (Norvasc) 10 mg PO DAILY [facility] Stop: 06/05/20 09:01 Aspirin (Aspirin Chewable) 81 mg PO BEDTIME [facility] Stop: 06/04/20 21:01 Last Admin: 05/05/20 20:46 Dose: Not Given Documented by: Carvedilol (Coreg) 3.125 mg PO BID [facility] Stop: 06/04/20 21:01 Last Admin: 05/05/20 20:46 Dose: Not Given Documented by: Cholecalciferol (Vitamin D 1000 Iu Tab) 1,000 unit PO DAILY [facility] Stop: 06/05/20 09:01 Cholestyramine Resin (Questran Light) 4 gm PO BIDWM [facility] Stop: 06/04/20 17:01 Last Admin: 05/05/20 16:14 Dose: 4 gm Documented by: Fentanyl Citrate (Sublimaze) 25 mcg IV Q4H PRN PRN Reason: Pain scale 8-10 (Severe) Stop: 06/02/20 16:44 Last Admin: 05/05/20 20:43 Dose: 25 mcg Documented by: Furosemide (Lasix) 40 mg PO BIDL [facility] Stop: 06/04/20 17:01 Last Admin: 05/05/20 16:14 Dose: 40 mg Documented by: Gabapentin (Neurontin) 200 mg PO TID [facility] Stop: 06/04/20 14:01 Last Admin: 05/05/20 21:00 Dose: Not Given Documented by: Glipizide (Glucotrol) 5 mg PO BIDAC [facility] Stop: 06/04/20 16:31 Last Admin: 05/05/20 16:14 Dose: 5 mg Documented by: Heparin Sodium (Porcine) (Heparin 5,000 Units/Ml) 5,000 unit SQ Q12HR [facility] Stop: 06/02/20 21:01 Last Admin: 05/05/20 20:48 Dose: 5,000 unit Documented by: Heparin Sodium (Porcine) (Heparin 1,000 Units/Ml) 6,000 unit IV EVERY HD PRN PRN Reason: AFTER EACH Stop: 06/02/20 20:41 Last Admin: 05/04/20 12:51 Dose: 6,000 unit Documented by: Metronidazole/Sodium Chloride (Flagyl 500mg/100 Ml Iv Premix) 500 mg in 100 mls @ 200 mls/hr IV Q8HR SHIMA; Protocol Stop: 06/02/20 17:01 Last Admin: 05/05/20 16:14 Dose: 100 mls Documented by: Albumin Human (Albumin 25%) 50 mls @ 100 mls/hr IV EVERY HD [facility] Stop: 06/02/20 21:01 Cefepime HCl (Maxipime 1 Gm/10 Ml Ivp) 10 mls @ 200 mls/hr IV DAILY [facility] Stop: 06/04/20 10:01 Last Admin: 05/05/20 11:45 Dose: 10 mls Documented by: Losartan Potassium (Cozaar) 50 mg PO BID [facility] Stop: 06/04/20 21:01 Last Admin: 05/05/20 20:46 Dose: Not Given Documented by: Mannitol (Mannitol 12.5 Gm/50 Ml Vial) 12.5 gm IV EVERY HD PRN PRN Reason: Titrate to SBP (MUST DEFINE) Stop: 06/02/20 20:41 Ondansetron HCl (Zofran) 4 mg IV Q6HP PRN PRN Reason: NAUSEA / VOMITING Stop: 06/02/20 12:45 Last Admin: 05/05/20 20:42 Dose: 4 mg Documented by: Sodium Chloride (Normal Saline Flush) 10 ml IV BID [facility] Stop: 06/02/20 21:01 Last Admin: 05/05/20 20:59 Dose: Not Given Documented by: Vitamin B Complex/Vit C/Folic Acid (Nephro-Nikole) 1 tab PO BEDTIME [facility] Stop: 06/04/20 21:01 Last Admin: 05/05/20 20:49 Dose: Not Given Documented by: Microbiology Results 05/03/20 11:20 Clean Catch Urine [place] Count - Preliminary >100,000 CFU/ML. 05/03/20 11:20 Clean Catch Urine - Preliminary 05/03/20 09:04 Blood - Blood Aerobic Blood Culture - Preliminary No growth in 24 hours. 05/03/20 09:04 Blood - Blood Anaerobic Blood Culture - Preliminary No growth in 24 hours. 05/03/20 08:55 Blood - Blood Aerobic Blood Culture - Preliminary No growth in 24 hours. 05/03/20 08:55 Blood - Blood Anaerobic Blood Culture - Preliminary No growth in 24 hours. 05/03/20 10:55 Nasopharnyx Influenza Type A Antigen Screen - Final 05/03/20 10:55 Nasopharnyx Influenza Type B Antigen Screen - Final Assessment/ Plan: Nephrology CPS stable without CP or SOB. No acute events overnight. Persistent abdominal pain. Vitals, medications, blood work and imaging reviewed in the chart. Physical Examination General: In no apparent distress, Oriented x3, Cooperative, Moderate distress HEENT: Atraumatic, Normocephalic Neck: Supple Respiratory: Diminished Cardiovascular: Regular rate/rhythm, Edema Gastrointestinal: Non-distended, No guarding, Tenderness Musculoskeletal: No clubbing, No contractures Integumentary: No rashes, No cyanosis Neurological: Normal speech Left AVF with thrill Laboratory Data (last 24 hrs) 05/03/20 09:17: WBC Cancelled, Hgb Cancelled, Hct Cancelled, Plt Count Cancelled 05/03/20 09:17: Sodium Cancelled, Potassium Cancelled, BUN Cancelled, Creatinine Cancelled, Glucose Cancelled, Total Bilirubin Cancelled, AST Cancelled, ALT Cancelled, Alkaline Phosphatase Cancelled, Lipase Cancelled 05/03/20 08:55: PT 13.0 H, INR 1.10, APTT 30.4 05/03/20 08:55: WBC 15.4 H, Hgb 10.4 L, Hct 32.4 L, Plt Count 255 05/03/20 08:55: Sodium 138, Potassium 4.5, BUN 38 H, Creatinine 5.07 H*, Glucose 200 H, Total Bilirubin 0.4, AST 24, ALT 35, Alkaline Phosphatase 92, Amylase 68, Lipase 230 Imagings Data: EXAM DESCRIPTION: CT - Abdomen Pelvis Wo Contrast - 05/03/2020 10:05 am CLINICAL HISTORY: Abdominal pain. RLQ pain;Abd pain COMPARISON: Abdomen Pelvis W Contrast dated 05/30/2018 TECHNIQUE: CT imaging of the abdomen and pelvis was performed without contrast. Solid organ, bowel and vascular assessment is limited due to lack of IV and oral contrast. All CT scans are performed using dose optimization technique as appropriate and may include automated exposure control or mA/KV adjustment according to patient size. FINDINGS: Mild linear subsegmental atelectasis in both lung bases.Cholecystectomy clips. The liver, spleen, pancreas, adrenal glands and left kidney are within normal limits for a limited non-contrast examination.Punctate 1-2 mm calculus is seen inferior right renal calyx without hydronephrosis appear No bowel obstruction, free air, free fluid or abscess. Thickening of the giron of the cecum noted somewhat asymmetric in nature, with right-sided lateral wall thickening up to 24 mm noted. Terminal ileum appears mildly thickened as well. Appendectomy. Midline hernia repair changes seen. Small fat containing left inguinal hernia. The osseous structures are within normal limits. IMPRESSION: Thickening of the cecal wall is noted up to 24 mm and somewhat asymmetric. Inflammatory condition such S typhlitis or other infection/inflammation the cecum is possible. The diagnosis of concern would be malignancy in the cecum and followup colonoscopy would be advised. EXAM DESCRIPTION: RAD - Chest Single View - 05/03/2020 9:32 am CLINICAL HISTORY: FEVER Chest pain. COMPARISON: Chest Single View dated 06/07/2018; Chest Single View dated 06/02/2018; Abdomen 1 View (KUB) dated 06/01/2018; Chest Pa And Lat (2 Views) dated 05/31/2018 FINDINGS: Portable technique limits examination quality. Mild interstitial pulmonary edema. The heart is upper limit of normal in size. Left-sided venous catheter has tip in the right atrium. IMPRESSION: Mild CHF versus volume overload pattern. Conclusions/Impression: A/ ESRD on HD HTN with CKD/ CHF Diastolic CHF, chronic DM II with CKD Anemia in CKD ÁNGEL/ Secondary HyperPTH Acute colitis with abdominal pain. Acute cystitis P/ Continue current POC and Medications. Arrange for acute HD tomorrow. Continue abx and steroids. Pain control as ordered. Follow up urine culture. May need antifungal treatment. NPO No NSAIDs. AM labs. Daily weight.
[2020-05-06] MEDS: METRONIDAZOLE 500mg IVPB 500 MG/100 ML BAG IV SCH ×3 (00:03→17:12)
[2020-05-06] MEDS: FENTANYL CITR 100 MCG/2 ML IV PRN (00:32)
[2020-05-06] MEDS ORDERED: HYDROMORPHONE HCL 1 MG/ML INJ IV ONE (00:40)
--- NOTE | 2020-05-06 00:52 | CON ---
Date of Consultation: 05/05/2020 Reason For Consultation: Severe right lower quadrant pain with CT scan revealed a thickened cecum wi th sepsis. White count up to 17,000. History Of Present Illness: Patient is a 65-year-old female with history of diabetes, hyper tension, renal disease, coronary artery disease, status post ND and CHF. Patient presented to [facility] with severe right lower quadrant pain. CT scan revealed a thickened cecal wall 2.4 cm. With feve r, change in bowel habits, diarrhea, and sepsis. White count up to 17.5, polys of 95%. L evaquin and Flagyl, we added cefepime and then Questran. Overnight, patient's white count had decrea sed from over 18 down to 17 and polys decreased from 95% to 90%. Once again, seem to correlate possi ble infectious etiology. Past Medical History: Significant for diabetes, hypertension, coronary disease, status post ND in [facility] 2018. Congestive heart failure. Renal failure with COVID-19 earlier this year infe ction. Spider bite 10 years ago. Home Medications: Include Glucotrol, Lasix, Norvasc, aspirin, Coreg, vitamin D3, Dialyvite Ultra, Ne urontin and Cozaar. Allergies: PENICILLIN. Past Surgical History: Includes hernia repair x2, appendectomy and normal spontaneous deliveries. Social History: She is a , 2 daughters, ages 45 and 35. No tobacco or alcohol. Family History: Father in 1972 of a brain aneurysm. Mother of diabetes and kidney disorde r. Sister has a double lung transplant, apparently at the [employer]. Review of Systems: The patient has right lower quadrant pain, change in bowel habits, diarrhea, fever. Physical Examination: Vital Signs: The patient is 5 feet 3 inches, 192 pounds. BMI of 34 kg/sq m. Temperature 97.4 degre es Fahrenheit, pulse 74, respirations 16, blood pressure 153/66, O2 saturation 96%. HEENT: Normocephalic, atraumatic. Anicteric. Pupils equal, round, and reactive to light. Extraocular movements are intact. Oropharynx is clear. Neck: Supple. No masses. Respirations: Clear to auscultation bilaterally. Cardiac: Regular rate and rhythm. Gastrointestinal: Positive bowel sounds. Soft, nondistended, obese. Right lower quadrant pain. So me tympany across the upper abdomen as well. Extremities: No clubbing, cyanosis. Some mild lower extremity edema. Neuro: Alert and oriented x3. Able to move extremities. Laboratory Data: The patient has a white count of 17.3 down from 17.5 yesterday; hemoglobin of 10.0; MCV of 88; platelet count of 243; polys of 90% down from 95% yesterday; lymphocytes 3%; monocytes 6% . Coagulation; PT of 16.0, INR of 1.36, PTT of 30.0. Sodium 137, potassium 4.8, chloride 103, bicar b 23, BUN of 53, creatinine of 4.62, glucose of 184, calcium 8.7, phosphorus 7.3, magnesium 2.2, tota l bilirubin 0.4, AST of 53, ALT of 35, alkaline phosphatase 85, B type nitrate peptide of 19,860. To john protein 6.7, albumin 2.8. UA showed trace ketones, 3+ blood, 3+ leukocyte esterase, loaded white blood cells greater than 50, less than 5 squamous epithelial, loaded bacteria, many yeasts, total pr otein 3+. Serologies: COVID-19 test is negative. Hepatitis B antigen, B surface antibody and core antibodies pending. Imagin.Chest x-ray, some mild CHF versus volume overload pattern. 2.CT abdomen and pelvis; thickened cecal wall 2.4 cm, somewhat asymmetric. Impression: 1.Right lower quadrant pain with inflammation. CT scan showed thickened cecal wall 2.4 cm associate d with fever, change in bowel habits, diarrhea with this, not foul smelling, but no chills, night swe ats; sepsis with white count of 7.5, down to 17, down to 17.5, down to 17.3 overnight with polys from 95% down to 90% overnight with the addition of cefepime and Questran. 2.Cystitis with genitourinary infection. Urinalysis is positive for infection as per above. 3.History of diabetes, hypertension, coronary artery disease, myocardial infarction in June 2018, congestive heart failure and renal failure. Recommendations: 1.Continue IV fluids, IV antibiotics. 2.Continue p.o. Questran. 3.Check stool studies. 4.Check blood cultures. 5.Clear liquids. 6.Surgery is following as well, in the event, if patient becomes a surgical patient with peritoneal signs and need for immediate surgery. JOSE/MICHAEL Voice ID: [id number] Report ID: [id number]
[2020-05-06] MEDS: ONDANSETRON 4 MG/2 ML VIAL IV PRN (02:35)
[2020-05-06 06:07] LABS: Absolute Lymphocytes (CBC) 1.3 K/uL (0.7-4.9); Basophils % 0.4 % (0-1.3); Hematocrit 28.9 % (36.0-45.0); Lymphocytes % 8.6 % (15.3-44.8); MPV 8.2 fL (7.6-11.3); RBC Red Blood Cell Count 3.21 M/uL (3.86-4.86)
[2020-05-06 06:41] LABS: Albumin 2.4 g/dL (3.4-5.0); Bilirubin Total 0.3 mg/dL (0.2-1.0); Magnesium 2.3 mg/dL (1.8-2.4); Phosphorus 6.8 mg/dL (2.5-4.9); Potassium 4.7 mmol/L (3.5-5.1); Protein, Total 6.1 g/dL (6.4-8.2)
[2020-05-06] MEDS: glipiZIDE 5 MG TAB PO SCH ×2 (07:30→17:12)
--- NOTE | 2020-05-06 08:46 | RAD REPORT ---
EXAM DESCRIPTION: RAD - Abdomen W Erect - 05/06/2020 1:47 am CLINICAL HISTORY: 65 years Female, ABD PAIN COMPARISON: None. FINDINGS: Bowel gas pattern appears nonspecific with a few mildly gas distended bowel loops in the m idabdomen. No evidence of air-fluid levels to suggest obstruction. No obvious free air. Surgical clip s in the right upper quadrant are present. Degenerative changes of the spine are demonstrated. IMPRESSION: Nonspecific bowel gas pattern without obvious obstruction. Electronically signed by: Adithya Lee MD 05/06/2020 3:38 AM CLINICAL OFFICE TECHNICIAN Due to temporary technical issues with the PACS/Fluency reporting system, reports are being signed by the in house radiologists without review as a courtesy to insure prompt reporting. The interpreting radiologist is fully responsible for the content of the report.
[2020-05-06] MEDS: LOSARTAN POTASSIUM 50 MG TABLET PO SCH ×2 (09:00→23:44)
[2020-05-06] MEDS: AMLODIPINE 10 MG TAB PO SCH (09:00)
[2020-05-06] MEDS: carvediloL 3.125 MG TAB PO SCH ×2 (09:00→20:38)
[2020-05-06 09:05] LABS: Platelet Estimate ADEQ; White Blood Cell Scan OK (OK)
[2020-05-06 09:06] LABS: Blood Morphology Comment NOT SEEN (NOT SEEN)
[2020-05-06] MEDS: CEFEPIME/SWI 1gm 10 ML IV SCH (09:06)
[2020-05-06] MEDS: GABAPENTIN 100 MG CAP PO SCH ×3 (09:07→20:38)
[2020-05-06] MEDS: FUROSEMIDE 40 MG TABLET PO SCH ×2 (09:07→17:11)
[2020-05-06] MEDS: CHOLESTYRAMINE/ASP 4 GM/PKT PO SCH ×2 (09:07→17:11)
[2020-05-06] MEDS: VITAMIN D 1000 UNIT TAB PO SCH (09:07)
[2020-05-06] MEDS: HEPARIN 5000 UNIT/ML 1 ML VIAL SQ SCH ×2 (09:08→20:39)
[2020-05-06] MEDS: HYDROMORPHONE HCL 0.5 MG/0.5 ML INJ IV PRN ×3 (12:27→23:44)
--- NOTE | 2020-05-06 16:48 | RAD REPORT ---
EXAM DESCRIPTION: CT - Abdomen Pelvis W Contrast - 05/06/2020 4:31 pm CLINICAL HISTORY: Abdominal pain COMPARISON: May 03, 2020 TECHNIQUE: Computed axial tomography of the abdomen pelvis was obtained. 100 cc Isovue-300 was admin istered intravenously. Oral contrast was not requested which limits evaluation of bowel. All CT scans are performed using dose optimization technique as appropriate and may include automated exposure control or mA/KV adjustment according to patient size. FINDINGS: The liver, spleen, pancreas, adrenal and right kidney appear unremarkable. A 2 millimeter nonobstructing right renal calculus There is no evidence of diverticulitis. Mild thickening of the wall of cecum. Postsurgical changes of a ventral hernia repair. Diffuse edema within the subcutaneous tissues IMPRESSION: Mild thickening of cecal wall may indicate inflammation or mass
--- NOTE | 2020-05-06 17:32 | P.PN ---
Subjective Date of Service: 05/06/20 Chief Complaint: RLQ abdominal pain, inflame cecum, sepsis with WBC 17k Subjective: Improving (WBC down from 17.3 to 14.6K with addition of Cefepime and Questran. She reports RLQ pain decreased from 9-10/10 level to 6/10 level yesterday until sudden movement made it worse again. Wants broth, did not get yesterday. Still has not had a stool. Granddaughters visiting her.) Review of Systems 10-point ROS is otherwise unremarkable General: Weakness, Malaise Gastrointestinal: Abdominal Pain Physical Examination - Vital Signs Temperature: 97.6 F Blood Pressure: 114/53 Pulse: 76 Respirations: 16 Pulse Ox (%): 98 - Studies Microbiology Data (last 24 hrs): 05/03/20 11:20 Clean Catch Urine [place] Count - Final >100,000 CFU/ML. 05/03/20 11:20 Clean Catch Urine - Final Medications List Reviewed: Yes Assessment And Plan - Current Problems (Diagnosis) (1) RLQ abdominal pain Current Visit: Yes Status: Acute (2) Abnormal CT of the abdomen Current Visit: Yes Status: Acute (3) Acute cecitis Current Visit: Yes Status: Acute (4) History of 2019 novel coronavirus disease (COVID-19) Current Visit: Yes Status: Acute (5) CHF (congestive heart failure), NYHA class IV Onset Date: 06/09/18 Current Visit: No Status: Acute Qualifiers: (6) Diabetes mellitus Onset Date: 06/09/18 Current Visit: No Status: Chronic (7) HTN (hypertension) Onset Date: 06/09/18 Current Visit: No Status: Chronic Qualifiers: - Plan REC: 1) continue Cefepime and Questran 2) CL diet 3) monitor labs 4) surgery following
--- NOTE | 2020-05-06 19:00 | PN ---
Date of Progress Note: 05/06/2020 Subjective: The patient was seen and examined. During dialysis, she is complaining of severe right lower quadrant pain and lower abdominal pain. Dr. Patiño has already ordered a CT scan of her abdomen with contrast. She denies any other complaints. Physical Examination: Vital Signs: Temperature of 97.6, pulse rate of 79, respiratory rate of 16, and blood pressure 134/6 0. General: She appears in no acute distress. HEENT: Atraumatic head. Lungs: Clear to auscultation. Diffuse tenderness noted in the abdomen with some mild rebound and gu arding in the right lower quadrant. Extremities: No evidence of edema. Laboratory Data: Creatinine of 5.91, BUN of 77. CBC showing improving WBC count, stable hemoglobin, hematocrit, and platelet count. Current Medications: Reviewed in detail. The patient remains on cholestyramine. She is also on Fla gyl and cefepime 1 g daily. She is on losartan 50 mg b.i.d., hydromorphone p.r.n. for pain, and glip izide 5 mg b.i.d. Impression: 1.End-stage renal disease, on dialysis. 2.Colitis. The patient remains on broad-spectrum antibiotics with cefepime and metronidazole. 3.Hypertension. 4.Anemia secondary to chronic kidney disease. 5.Acute cystitis. Plan: The patient is currently vital signs and temperature are improving, source of leukocytosis. H owever, we are concerned about clinical worsening. Dr. Patiño has ordered a CT scan for further evalua tion. We will continue to monitor closely. The patient does not need any dialysis post contrast. T he patient is able to tolerate dialysis okay. Continue antibiotics to be dosed post HD. We will follow up closely. VV/MODL Voice ID: [id number] Report ID: [id number]
[2020-05-06] MEDS: MULTIVITAMINS,THERAPEUT 1 TAB PO SCH (20:38)
[2020-05-06] MEDS: ASPIRIN 81 MG CHEWABLE TABLET PO SCH (20:39)
[2020-05-07] MEDS: METRONIDAZOLE 500mg IVPB 500 MG/100 ML BAG IV SCH ×3 (00:10→17:27)
[2020-05-07] MEDS: HYDROMORPHONE HCL 0.5 MG/0.5 ML INJ IV PRN (06:01)
[2020-05-07] MEDS: HEPARIN 5000 UNIT/ML 1 ML VIAL SQ SCH ×2 (08:50→20:56)
[2020-05-07] MEDS: CEFEPIME/SWI 1gm 10 ML IV SCH (08:50)
[2020-05-07] MEDS: carvediloL 3.125 MG TAB PO SCH ×2 (08:51→20:47)
[2020-05-07] MEDS: LOSARTAN POTASSIUM 50 MG TABLET PO SCH ×2 (08:51→20:47)
[2020-05-07] MEDS: CHOLESTYRAMINE/ASP 4 GM/PKT PO SCH ×2 (08:51→17:26)
[2020-05-07] MEDS: FUROSEMIDE 40 MG TABLET PO SCH ×2 (08:51→17:26)
[2020-05-07] MEDS: GABAPENTIN 100 MG CAP PO SCH ×3 (08:52→20:47)
[2020-05-07] MEDS: VITAMIN D 1000 UNIT TAB PO SCH (08:52)
[2020-05-07] MEDS: AMLODIPINE 10 MG TAB PO SCH (08:52)
[2020-05-07] MEDS: glipiZIDE 5 MG TAB PO SCH ×2 (08:52→17:19)
[2020-05-07] MEDS ORDERED: HYDROMORPHONE HCL 1 MG/ML INJ IV ONE ×2 (11:03→22:28)
--- NOTE | 2020-05-07 11:24 | P.PN ---
Subjective Date of Service: 05/07/20 Chief Complaint: RLQ abdominal pain, inflame cecum, sepsis with WBC 17k Subjective: No new changes (Tried broth yesterday and seems to have made RLQ pain worse. She is taking Dilaudid 0.5 mg IV [id number]. No stools reported. Labs to be done.) Review of Systems 10-point ROS is otherwise unremarkable General: Weakness, Malaise Gastrointestinal: Abdominal Pain Physical Examination - Vital Signs Temperature: 98.1 F Blood Pressure: 165/70 Pulse: 72 Respirations: 16 Pulse Ox (%): 96 - Physical Exam General: Alert, Oriented x3, Cooperative, Mild distress HEENT: Atraumatic, Normocephalic, PERRLA, EOMI Neck: Supple Respiratory: Normal air movement Cardiovascular: Normal pulses Gastrointestinal: No rebound, Tenderness (RLQ), Guarding Neurological: Normal speech - Studies Microbiology Data (last 24 hrs): 05/03/20 11:20 Clean Catch Urine [place] Count - Final >100,000 CFU/ML. 05/03/20 11:20 Clean Catch Urine - Final Medications List Reviewed: Yes Assessment And Plan - Current Problems (Diagnosis) (1) RLQ abdominal pain Current Visit: Yes Status: Acute (2) Abnormal CT of the abdomen Current Visit: Yes Status: Acute (3) Acute cecitis Current Visit: Yes Status: Acute (4) History of 2019 novel coronavirus disease (COVID-19) Current Visit: Yes Status: Acute (5) CHF (congestive heart failure), NYHA class IV Onset Date: 06/09/18 Current Visit: No Status: Acute Qualifiers: (6) Diabetes mellitus Onset Date: 06/09/18 Current Visit: No Status: Chronic (7) HTN (hypertension) Onset Date: 06/09/18 Current Visit: No Status: Chronic Qualifiers: - Plan REC: 1) continue Cefepime and Questran 2) CL diet 3) monitor labs 4) surgery following 5) increase pain medication if no contraindication(s) 6) await today's labs
[2020-05-07 11:32] LABS: Absolute Lymphocytes (CBC) 1.2 K/uL (0.7-4.9); Basophils % 0.4 % (0-1.3); Hematocrit 27.5 % (36.0-45.0); MPV 8.1 fL (7.6-11.3); RBC Red Blood Cell Count 3.11 M/uL (3.86-4.86)
[2020-05-07] MEDS ORDERED: HYDROCORTISONE SUC 100 MG INJ IV ONE (11:37)
[2020-05-07 11:41] LABS: Magnesium 2.2 mg/dL (1.8-2.4); Phosphorus 3.9 mg/dL (2.5-4.9); Potassium 4.2 mmol/L (3.5-5.1)
[2020-05-07] MEDS ORDERED: DOCUSATE NA 100 MG CAP PO ONE (12:29)
[2020-05-07] MEDS ORDERED: MINERAL OIL 30 ML UCUP PO ONE (12:29)
[2020-05-07] MEDS: HYDROMORPHONE HCL 1 MG/ML INJ IV PRN ×3 (13:42→20:56)
[2020-05-07] MEDS: ONDANSETRON 4 MG/2 ML VIAL IV PRN (15:19)
--- NOTE | 2020-05-07 15:21 | P.PN ---
Subjective Date of Service: 05/05/20 Patient still having a lot of pain. Continuing pain control and changing pain medication to Dilaudid 0.5 mg IV Q 6. Continue with IV antibiotic therapy. Spoke with Gastroenterology and will continue with current plan of care. His symptoms worsen then we may need to do surgical consultation. We will get CT scan repeated if symptoms are not improving tomorrow Review of Systems 10-point ROS is otherwise unremarkable Physical Examination - Vital Signs Temperature: 98.1 F Blood Pressure: 165/70 Pulse: 72 Respirations: 16 Pulse Ox (%): 96 - Physical Exam General: Alert, In no apparent distress, Oriented x3 Respiratory: Clear to auscultation bilaterally, Normal air movement Cardiovascular: Regular rate/rhythm, Normal S1 S2, No murmurs Gastrointestinal: Normal bowel sounds, Soft and benign, Non-distended, No tenderness, No rebound, No guarding Musculoskeletal: No clubbing, No swelling, No tenderness Neurological: Normal strength at 5/5 x4 extr, Sensation intact, Cranial nerves 3-12 intact - Studies Medications List Reviewed: Yes Assessment & Plan - Problems (Diagnosis) (1) Typhlitis Current Visit: Yes Status: Acute (2) CHF (congestive heart failure), NYHA class IV Onset Date: 06/09/18 Current Visit: No Status: Acute Qualifiers: (3) Diabetes mellitus Onset Date: 06/09/18 Current Visit: No Status: Chronic (4) HTN (hypertension) Onset Date: 06/09/18 Current Visit: No Status: Chronic Qualifiers: (5) History of 2019 novel coronavirus disease (COVID-19) Current Visit: Yes Status: Acute - Plan 1. Hep-Lock IV because of end-stage renal disease; 2. Continue with IV antibiotics; GI recommended adding cefepime; also recommended Questran 3. Continue with pain control 4. Plan to start clear liquid diet is symptoms are not improving 5. GI & Nephrology consultation appreciated 6. Monitor labs 7. GI and DVT prophylaxis Discharge Plan: Home Plan to discharge in: Greater than 2 days - Advance Directives Does patient have a Living Will: No Does patient have a Durable POA for Healthcare: No - Code Status/Comfort Care Code Status: Full Code Critical Care: No Time Spent Managing PTS Care (In Minutes): 30
--- NOTE | 2020-05-07 15:24 | P.PN ---
Subjective Date of Service: 05/06/20 Patient is still having pain. CT scan is pending. Spoke with Nephrology and we can dialyze on regularly scheduled day. Review of Systems 10-point ROS is otherwise unremarkable Physical Examination - Vital Signs Temperature: 98.1 F Blood Pressure: 165/70 Pulse: 72 Respirations: 16 Pulse Ox (%): 96 - Physical Exam General: Alert, In no apparent distress, Oriented x3 Respiratory: Clear to auscultation bilaterally, Normal air movement Cardiovascular: Regular rate/rhythm, Normal S1 S2, No murmurs Gastrointestinal: Normal bowel sounds, Soft and benign, Non-distended, No rebound, No guarding, Tenderness Musculoskeletal: No clubbing, No swelling, No tenderness Neurological: Sensation intact, Cranial nerves 3-12 intact - Studies Medications List Reviewed: Yes Assessment & Plan - Problems (Diagnosis) (1) Typhlitis Current Visit: Yes Status: Acute (2) CHF (congestive heart failure), NYHA class IV Onset Date: 06/09/18 Current Visit: No Status: Acute Qualifiers: (3) Diabetes mellitus Onset Date: 06/09/18 Current Visit: No Status: Chronic (4) HTN (hypertension) Onset Date: 06/09/18 Current Visit: No Status: Chronic Qualifiers: (5) History of 2019 novel coronavirus disease (COVID-19) Current Visit: Yes Status: Acute - Plan 1. Patient's pain has worsened. Will repeat CT imaging studies. 2. Continue with IV antibiotics; GI recommended adding cefepime along with Flagyl; also recommended Questran 3. Continue with pain control 4. Clear liquid diet is symptoms are not improving 5. GI & Nephrology consultation appreciated; currently pending CT scan. May need to get General surgery involvement as well 6. Monitor labs 7. GI and DVT prophylaxis Discharge Plan: Home Plan to discharge in: Greater than 2 days - Advance Directives Does patient have a Living Will: No Does patient have a Durable POA for Healthcare: No - Code Status/Comfort Care Code Status: Full Code Critical Care: No Time Spent Managing PTS Care (In Minutes): 35
--- NOTE | 2020-05-07 15:25 | CON ---
Date of Consultation: 05/07/2020 Reason For Consultation: Colitis. Brief History Of Present Illness: The patient is a 65-year-old female, who presents to the hospital with abdominal pain on 05/03/2020. She had pain, predominately in the right lower quadrant at that time. She had these symptoms beginning approximately 1 day prior to her [facility] the [facility], but when they progressively got worse, she came to the hospital with the above-stated complain ts. She states that she has had this pain going on now since her admission with no significant nagel e. It continues to be pain, tenderness predominantly in the right lower quadrant and she has some na usea and bloating associated with this. She continues to pass gas since she has been in the hospital , but denies having a bowel movement since being here at the hospital. She has never had similar epi sodes before or in the past. The patient was found to have COVID-19 in July. No other subsequen t COVID exposures that she is aware of her. No sick contacts. No recent travel. Past Medical History: Significant for hypertension, diabetes, obesity, dyslipidemia, congestive hear t failure, spider envenomation 10 years ago. Past Surgical History: Includes hernia repair x2, last 1 in 2001; appendectomy. She has had spontan eous vaginal delivery she states. Hemodialysis access placement. Allergies: TO PENICILLIN. Home Medications: Include Glucotrol, Lasix, Norvasc, aspirin, Coreg, vitamin D3, Dialyvite, Neuronti n, Cozaar. Social History: She has a positive smoking history. Denies alcohol or recreational drug use. Review of Systems: Ten-point review of systems other than HPI, denies. Physical Examination: Vital Signs: At the time of my examination; her BMI was 34. Her blood pressure was 165/70, heart ra te was 72, respiratory rate 16, temperature 98.1. Her SpO2 was 96% on room air. Her pain level was 0 during my examination. General: She is awake, alert, and oriented. Psychiatric: She is appropriate, conversive, in no apparent distress. HEENT: She is normocephalic. Her sclerae were anicteric. Mucous membranes were moist. Oropharynx clear. Neck: Supple without JVD. Chest: Normal expansion and excursion. Cardiovascular: Regular rate and rhythm. Pulmonary: Clear to auscultation bilaterally. Abdomen: Soft, but global tenderness to palpation worse in the right lower quadrant. She is nondist ended. There is minimal voluntary guarding. No rebound. No peritoneal signs. Neurologic: No focal deficits appreciated. Skin: Warm and dry. Extremities: No clubbing, cyanosis, or edema. Laboratory Data: Revealed a white blood cell count of 10.1 down from 14.6 previous day, hemoglobin i s 9.2, hematocrit is 27.5, her platelets were 216, neutrophils were 78%. Her sodium is 135, potassiu m 4.2, chloride 102, 38 is her BUN, creatinine is 4.37, carbon dioxide was 24, glucose was 129, calci um is 7.4, phosphorus is 3.9, magnesium 2.2. Her procalcitonin was 30.59 on admission. She had imag ing performed, which included a CT abdomen and pelvis on 05/03/2020 on admission, which was officiall y read as thickening of the cecal wall as noted up to 24 mm and so asymmetric inflammatory condition such as typhlitis or other infectious/inflammation of the cecum is possible. The diagnosis of concer n of the malignancy in the cecum and followup colonoscopy would be advised. A limited noncontrast ex amination was performed as detailed. She had a chest x-ray performed also at that same time, brittni ling read as mild CHF versus volume overload pattern. She had an abdominal x-ray on 05/06, officially read as nonspecific bowel gas pattern without obvious obstruction. She had a repeat CT scan of the abdomen and pelvis on 05/06/2020, it was IV contrast only, which showed mild thickening of the cecal wall, may indicate inflammation or mass, postsurgical changes of ventral hernia repair, diffuse edema in the subcutaneous tissues, mild wall thickening of the cecum, 2 mm right nonobstructing renal calc ulus is noted. Assessment And Plan: 1.This is a 65-year-old female, who comes in with signs of colitis of uncertain etiology. A neoplas tic process is in the differential and this should be evaluated via colonoscopy at the appropriate ti me. I recommend continued IV fluid hydration. 2.Serial abdominal exams. 3.Antibiotic coverage. 4.I recommend a p.o. contrast study when the patient's symptoms allow should she not have significan t improvement in her symptoms in the next day or so. 5.Appreciate Dr. Dixon's recommendations. I will follow along with you. Thank you for this interesting consult. ELDA Voice ID: [id number] Report ID: [id number]
--- NOTE | 2020-05-07 15:29 | P.PN ---
Subjective Date of Service: 05/07/20 CT scan continues to show colitis. No worsening. Spoke with General surgery and they recommended mineral oil as well. Patient looks like patient had quite a bit of stool on CT imaging. Increased pain medication to Dilaudid 1 mg every 3 hr as needed. Hemodialysis is scheduled for Friday, , and Friday. Encouraging patient to get out of bed and ambulate. She is just complaining of a significant amount of pain. Review of Systems 10-point ROS is otherwise unremarkable Physical Examination - Vital Signs Temperature: 98.1 F Blood Pressure: 165/70 Pulse: 72 Respirations: 16 Pulse Ox (%): 96 - Physical Exam General: Alert, In no apparent distress, Oriented x3 Respiratory: Clear to auscultation bilaterally, Normal air movement Cardiovascular: Regular rate/rhythm, Normal S1 S2 Gastrointestinal: Normal bowel sounds, Soft and benign, Non-distended, No tenderness Musculoskeletal: No clubbing, No swelling Neurological: Normal strength at 5/5 x4 extr, Normal tone, Sensation intact, Cranial nerves 3-12 intact - Studies Medications List Reviewed: Yes Assessment & Plan - Problems (Diagnosis) (1) Typhlitis Current Visit: Yes Status: Acute (2) CHF (congestive heart failure), NYHA class IV Onset Date: 06/09/18 Current Visit: No Status: Acute Qualifiers: (3) Diabetes mellitus Onset Date: 06/09/18 Current Visit: No Status: Chronic (4) HTN (hypertension) Onset Date: 06/09/18 Current Visit: No Status: Chronic Qualifiers: (5) History of 2019 novel coronavirus disease (COVID-19) Current Visit: Yes Status: Acute - Plan Continue with plan of care as mentioned below 1. Repeat CT scan did show some colitis. Spoke to general surgery and they recommended Mineral oil and continue with plan of care. will monitor closely at this time. 2. Continue with IV antibiotics; Continue cefepime along with Flagyl; 3. Continue with pain control 4. Clear liquid diet 5. GI & Nephrology consultation appreciated; General surgery assistance appreciated 6. Monitor labs; patient had leukocytosis 7. GI and DVT prophylaxis Discharge Plan: Home Plan to discharge in: Greater than 2 days - Advance Directives Does patient have a Living Will: No Does patient have a Durable POA for Healthcare: No - Code Status/Comfort Care Code Status: Full Code Critical Care: No Time Spent Managing PTS Care (In Minutes): 30
[2020-05-07] MEDS: MULTIVITAMINS,THERAPEUT 1 TAB PO SCH (20:46)
[2020-05-07] MEDS: DOCUSATE NA 100 MG CAP PO SCH (20:46)
[2020-05-07] MEDS: HYDROCORTISONE SUC 100 MG INJ IV SCH (20:47)
[2020-05-07] MEDS: ASPIRIN 81 MG CHEWABLE TABLET PO SCH (20:47)
[2020-05-08] MEDS: METRONIDAZOLE 500mg IVPB 500 MG/100 ML BAG IV SCH ×3 (00:35→16:00)
[2020-05-08] MEDS: HYDROMORPHONE HCL 2 MG/ML inj IV PRN ×5 (03:07→21:20)
[2020-05-08] MEDS: ONDANSETRON 4 MG/2 ML VIAL IV PRN (05:28)
[2020-05-08 05:48] LABS: Absolute Lymphocytes (CBC) 0.8 K/uL (0.7-4.9); Basophils % 0.6 % (0-1.3); Hematocrit 31.1 % (36.0-45.0); Lymphocytes % 6.2 % (15.3-44.8); MPV 8.2 fL (7.6-11.3); RBC Red Blood Cell Count 3.52 M/uL (3.86-4.86)
[2020-05-08 06:02] LABS: Albumin 2.7 g/dL (3.4-5.0); Bilirubin Total 0.3 mg/dL (0.2-1.0); Potassium 5.1 mmol/L (3.5-5.1); Protein, Total 7.1 g/dL (6.4-8.2)
[2020-05-08] MEDS: AMLODIPINE 10 MG TAB PO SCH (07:39)
[2020-05-08] MEDS: LOSARTAN POTASSIUM 50 MG TABLET PO SCH ×2 (07:39→21:16)
[2020-05-08] MEDS: DOCUSATE NA 100 MG CAP PO SCH ×2 (07:39→21:16)
[2020-05-08] MEDS: GABAPENTIN 100 MG CAP PO SCH ×3 (07:39→21:16)
[2020-05-08] MEDS: VITAMIN D 1000 UNIT TAB PO SCH (07:39)
[2020-05-08] MEDS: FUROSEMIDE 40 MG TABLET PO SCH ×2 (07:40→16:23)
[2020-05-08] MEDS: carvediloL 3.125 MG TAB PO SCH ×2 (07:40→21:16)
[2020-05-08] MEDS: HYDROCORTISONE SUC 100 MG INJ IV SCH (07:40)
[2020-05-08] MEDS: glipiZIDE 5 MG TAB PO SCH ×2 (07:41→16:23)
[2020-05-08] MEDS: CHOLESTYRAMINE/ASP 4 GM/PKT PO SCH ×2 (07:41→16:23)
[2020-05-08] MEDS: HEPARIN 5000 UNIT/ML 1 ML VIAL SQ SCH ×2 (07:41→21:17)
[2020-05-08] MEDS: CEFEPIME/SWI 1gm 10 ML IV SCH (07:44)
[2020-05-08 08:47] LABS: Platelet Estimate ADEQ; White Blood Cell Scan OK (OK)
[2020-05-08 08:48] LABS: Blood Morphology Comment NOT SEEN (NOT SEEN)
--- NOTE | 2020-05-08 09:48 | P.PN ---
Subjective Date of Service: 05/08/20 Chief Complaint: RLQ abdominal pain, inflame cecum, sepsis with WBC 17k Subjective: Improving (Patient states her pain is better today, but not resolved. she continues to pass gas, no BM) Physical Examination - Vital Signs Temperature: 98.1 F Blood Pressure: 114/52 Pulse: 60 Respirations: 16 Pulse Ox (%): 95 - Physical Exam General: Alert, In no apparent distress, Cooperative HEENT: Mucous membr. moist/pink Gastrointestinal: Other (soft, mild global TTP, worse in RLQ, no peritoneal signs. ) Neurological: Normal speech - Studies Microbiology Data (last 24 hrs): 05/03/20 09:04 Blood - Blood Aerobic Blood Culture - Final No growth in 5 days. 05/03/20 09:04 Blood - Blood Anaerobic Blood Culture - Final No growth in 5 days. 05/03/20 08:55 Blood - Blood Aerobic Blood Culture - Final No growth in 5 days. 05/03/20 08:55 Blood - Blood Anaerobic Blood Culture - Final No growth in 5 days. Medications List Reviewed: Yes Assessment And Plan - Current Problems (Diagnosis) (1) Typhlitis Current Visit: Yes Status: Acute Plan: - Continue IV hydration - Continue antibiotic coverage, but consider carbapenem - serial exams - continue medical management - due for HD today - consider magnesium citrate for bowel function - ambulate with assist - incentive spirometry - continue treatment for UTI
[2020-05-08] MEDS ORDERED: BISACODYL E.C. 5 MG TAB PO ONE (09:51)
[2020-05-08] MEDS ORDERED: ERTAPENEM SODIUM 1 GM VIAL IVPB SCH (10:00)
[2020-05-08] MEDS: FLUCONAZOLE 100mg IVPB 100 MG/50 ML BAG IV SCH (10:13)
[2020-05-08] MEDS: ERTAPENEM NA 0.5 GM in NA CHLORIDE 0.9% 100 ML IVPB SCH (11:00)
[2020-05-08] MEDS: MANNITOL 25% 12.5 GM/50 ML VIAL IV PRN (13:00)
--- NOTE | 2020-05-08 17:38 | P.PN ---
Subjective Date of Service: 05/08/20 Chief Complaint: RLQ abdominal pain, inflame cecum, sepsis with WBC 17k Subjective: Other (Abdominal pain improved.) Physical Examination - Vital Signs Temperature: 97.1 F Blood Pressure: 144/64 Pulse: 72 Respirations: 20 Pulse Ox (%): 98 - Physical Exam General: Alert, Cooperative HEENT: Atraumatic Neck: Supple Respiratory: Clear to auscultation bilaterally, Normal air movement Cardiovascular: Normal pulses, Regular rate/rhythm Gastrointestinal: Normal bowel sounds, No rebound, No guarding, Tenderness (Abdominal pain noted to the right side improved.) Neurological: Normal speech, Normal strength at 5/5 x4 extr, Normal tone, Normal affect - Studies Microbiology Data (last 24 hrs): 05/03/20 09:04 Blood - Blood Aerobic Blood Culture - Final No growth in 5 days. 05/03/20 09:04 Blood - Blood Anaerobic Blood Culture - Final No growth in 5 days. 05/03/20 08:55 Blood - Blood Aerobic Blood Culture - Final No growth in 5 days. 05/03/20 08:55 Blood - Blood Anaerobic Blood Culture - Final No growth in 5 days. Medications List Reviewed: Yes Assessment & Plan Discharge Plan: Home Plan to discharge in: 72 Hours Physician Review Additional Text: Assessment & Plan - Problems (Diagnosis) (1) Typhlitis Current Visit: Yes Status: Acute (2) CHF (congestive heart failure), NYHA class IV Onset Date: 06/09/18 Current Visit: No Status: Acute Qualifiers: (3) Diabetes mellitus Onset Date: 06/09/18 Current Visit: No Status: Chronic (4) HTN (hypertension) Onset Date: 06/09/18 Current Visit: No Status: Chronic Qualifiers: (5) History of 2019 novel coronavirus disease (COVID-19) Current Visit: Yes Status: Acute - Plan 1. Repeat CT scan did show some colitis. Spoke with General surgery. Continue with antibiotic therapy. Surgery plans to give 1 dose of InVanz. Surgery also recommends a dose of did lacks. Will continue monitor closely. Anticipate improvement over the next 3 days. 2. Continue with IV antibiotics; Continue cefepime along with Flagyl; 3. Continue with pain control 4. Clear liquid diet will advance as tolerated 5. GI & Nephrology consultation appreciated; General surgery assistance appreciated 6. Monitor labs; patient had leukocytosis 7. GI and DVT prophylaxis Time Spent Managing Pts Care (In Minutes): 55
--- NOTE | 2020-05-08 21:14 | P.PN ---
Date of Service: 05/08/20 Vital Signs Temp Pulse Resp BP Pulse Ox 97.1 F 72 20 144/64 H 98 05/08/20 17:37 05/08/20 17:37 05/08/20 17:37 05/08/20 17:37 05/08/20 17:37 Medications Acetaminophen (Tylenol -Extra Strength) 500 mg PO Q4HP PRN PRN Reason: Pain/fever Stop: 06/02/20 12:45 Amlodipine Besylate (Norvasc) 10 mg PO DAILY SHIMA Stop: 06/05/20 09:01 Last Admin: 05/08/20 07:39 Dose: 10 mg Documented by: Aspirin (Aspirin Chewable) 81 mg PO BEDTIME SHIMA Stop: 06/04/20 21:01 Last Admin: 05/07/20 20:47 Dose: 81 mg Documented by: Carvedilol (Coreg) 3.125 mg PO BID SHIMA Stop: 06/04/20 21:01 Last Admin: 05/08/20 07:40 Dose: 3.125 mg Documented by: Cholecalciferol (Vitamin D 1000 Iu Tab) 1,000 unit PO DAILY SHIMA Stop: 06/05/20 09:01 Last Admin: 05/08/20 07:39 Dose: 1,000 unit Documented by: Cholestyramine Resin (Questran Light) 4 gm PO BIDWM [facility] Stop: 06/04/20 17:01 Last Admin: 05/08/20 16:23 Dose: 4 gm Documented by: Dextrose (Dextrose 50% Syringe) 12.5 gm IV PRN PRN; Protocol PRN Reason: HYPOGLYCEMIA Stop: 06/05/20 00:40 Docusate Sodium (Colace Cap) 100 mg PO BID SHIMA Stop: 06/06/20 21:01 Last Admin: 05/08/20 07:39 Dose: 100 mg Documented by: Furosemide (Lasix) 40 mg PO BIDL SHIMA Stop: 06/04/20 17:01 Last Admin: 05/08/20 16:23 Dose: 40 mg Documented by: Gabapentin (Neurontin) 200 mg PO TID SHIMA Stop: 06/04/20 14:01 Last Admin: 05/08/20 13:00 Dose: 200 mg Documented by: Glipizide (Glucotrol) 5 mg PO BIDAC [facility] Stop: 06/04/20 16:31 Last Admin: 05/08/20 16:23 Dose: 5 mg Documented by: Heparin Sodium (Porcine) (Heparin 5,000 Units/Ml) 5,000 unit SQ Q12HR SHIMA Stop: 06/02/20 21:01 Last Admin: 05/08/20 07:41 Dose: 5,000 unit Documented by: Heparin Sodium (Porcine) (Heparin 1,000 Units/Ml) 6,000 unit IV EVERY HD PRN PRN Reason: AFTER EACH Stop: 06/02/20 20:41 Last Admin: 05/08/20 11:58 Dose: 6,000 unit Documented by: Hydromorphone HCl (Dilaudid) 2 mg IV Q4H PRN PRN Reason: Pain scale 8-10 (Severe) Stop: 06/07/20 02:31 Last Admin: 05/08/20 16:24 Dose: 2 mg Documented by: Metronidazole/Sodium Chloride (Flagyl 500mg/100 Ml Iv Premix) 500 mg in 100 mls @ 200 mls/hr IV Q8HR SHIMA; Protocol Stop: 06/02/20 17:01 Last Admin: 05/08/20 16:00 Dose: 100 mls Documented by: Albumin Human (Albumin 25%) 50 mls @ 100 mls/hr IV EVERY HD SHIMA Stop: 06/02/20 21:01 Cefepime HCl (Maxipime 1 Gm/10 Ml Ivp) 10 mls @ 200 mls/hr IV DAILY SHIMA Stop: 06/04/20 10:01 Last Admin: 05/08/20 07:44 Dose: 10 mls Documented by: Fluconazole (Diflucan 100 Mg/50 Ml Ivpb (Premix)) 100 mg in 50 mls @ 50 mls/hr IV DAILY SHIMA; Protocol Stop: 06/07/20 10:01 Last Admin: 05/08/20 10:13 Dose: 50 mls Documented by: Ertapenem 0.5 gm/ Sodium (Chloride) 100 mls @ 200 mls/hr IVPB Q24H SHIMA Stop: 06/07/20 11:01 Last Admin: 05/08/20 11:00 Dose: 100 mls Documented by: Losartan Potassium (Cozaar) 50 mg PO BID SHIMA Stop: 06/04/20 21:01 Last Admin: 05/08/20 07:39 Dose: 50 mg Documented by: Mannitol (Mannitol 12.5 Gm/50 Ml Vial) 12.5 gm IV EVERY HD PRN PRN Reason: Titrate to SBP (MUST DEFINE) Stop: 06/02/20 20:41 Last Admin: 05/08/20 13:00 Dose: 12.5 gm Documented by: Ondansetron HCl (Zofran) 4 mg IV Q6HP PRN PRN Reason: NAUSEA / VOMITING Stop: 06/02/20 12:45 Last Admin: 05/08/20 05:28 Dose: 4 mg Documented by: Sodium Chloride (Normal Saline Flush) 10 ml IV BID [facility] Stop: 06/02/20 21:01 Last Admin: 05/08/20 07:45 Dose: 10 ml Documented by: Vitamin B Complex/Vit C/Folic Acid (Nephro-Nikole) 1 tab PO BEDTIME SHIMA Stop: 06/04/20 21:01 Last Admin: 05/07/20 20:46 Dose: 1 tab Documented by: Microbiology Results 05/03/20 09:04 Blood - Blood Aerobic Blood Culture - Final No growth in 5 days. 05/03/20 09:04 Blood - Blood Anaerobic Blood Culture - Final No growth in 5 days. 05/03/20 08:55 Blood - Blood Aerobic Blood Culture - Final No growth in 5 days. 05/03/20 08:55 Blood - Blood Anaerobic Blood Culture - Final No growth in 5 days. 05/03/20 11:20 Clean Catch Urine [place] Count - Final >100,000 CFU/ML. 05/03/20 11:20 Clean Catch Urine - Final 05/03/20 10:55 Nasopharnyx Influenza Type A Antigen Screen - Final 05/03/20 10:55 Nasopharnyx Influenza Type B Antigen Screen - Final Assessment/ Plan: Nephrology CPS stable without CP or SOB. No acute events overnight. Abdominal pain improved today. Vitals, medications, blood work and imaging reviewed in the chart. Physical Examination General: In no apparent distress, Oriented x3, Cooperative, Moderate distress HEENT: Atraumatic, Normocephalic Neck: Supple Respiratory: Diminished Cardiovascular: Regular rate/rhythm, Edema Gastrointestinal: Non-distended, No guarding, Tenderness Musculoskeletal: No clubbing, No contractures Integumentary: No rashes, No cyanosis Neurological: Normal speech Left AVF with thrill Laboratory Data (last 24 hrs) 05/03/20 09:17: WBC Cancelled, Hgb Cancelled, Hct Cancelled, Plt Count Cancelled 05/03/20 09:17: Sodium Cancelled, Potassium Cancelled, BUN Cancelled, Creatinine Cancelled, Glucose Cancelled, Total Bilirubin Cancelled, AST Cancelled, ALT Cancelled, Alkaline Phosphatase Cancelled, Lipase Cancelled 05/03/20 08:55: PT 13.0 H, INR 1.10, APTT 30.4 05/03/20 08:55: WBC 15.4 H, Hgb 10.4 L, Hct 32.4 L, Plt Count 255 05/03/20 08:55: Sodium 138, Potassium 4.5, BUN 38 H, Creatinine 5.07 H*, Glucose 200 H, Total Bilirubin 0.4, AST 24, ALT 35, Alkaline Phosphatase 92, Amylase 68, Lipase 230 Imagings Data: EXAM DESCRIPTION: CT - Abdomen Pelvis Wo Contrast - 05/03/2020 10:05 am CLINICAL HISTORY: Abdominal pain. RLQ pain;Abd pain COMPARISON: Abdomen Pelvis W Contrast dated 05/30/2018 TECHNIQUE: CT imaging of the abdomen and pelvis was performed without contrast. Solid organ, bowel and vascular assessment is limited due to lack of IV and oral contrast. All CT scans are performed using dose optimization technique as appropriate and may include automated exposure control or mA/KV adjustment according to patient size. FINDINGS: Mild linear subsegmental atelectasis in both lung bases.Cholecystectomy clips. The liver, spleen, pancreas, adrenal glands and left kidney are within normal limits for a limited non-contrast examination.Punctate 1-2 mm calculus is seen inferior right renal calyx without hydronephrosis appear No bowel obstruction, free air, free fluid or abscess. Thickening of the giron of the cecum noted somewhat asymmetric in nature, with right-sided lateral wall thickening up to 24 mm noted. Terminal ileum appears mildly thickened as well. Appendectomy. Midline hernia repair changes seen. Small fat containing left inguinal hernia. The osseous structures are within normal limits. IMPRESSION: Thickening of the cecal wall is noted up to 24 mm and somewhat asymmetric. Inflammatory condition such S typhlitis or other infection/inflammation the cecum is possible. The diagnosis of concern would be malignancy in the cecum and followup colonoscopy would be advised. EXAM DESCRIPTION: RAD - Chest Single View - 05/03/2020 9:32 am CLINICAL HISTORY: FEVER Chest pain. COMPARISON: Chest Single View dated 06/07/2018; Chest Single View dated 06/02/2018; Abdomen 1 View (KUB) dated 06/01/2018; Chest Pa And Lat (2 Views) dated 05/31/2018 FINDINGS: Portable technique limits examination quality. Mild interstitial pulmonary edema. The heart is upper limit of normal in size. Left-sided venous catheter has tip in the right atrium. IMPRESSION: Mild CHF versus volume overload pattern. Conclusions/Impression: A/ ESRD on HD HTN with CKD/ CHF Diastolic CHF, chronic DM II with CKD Anemia in CKD ÁNGEL/ Secondary HyperPTH Acute typhlitis with abdominal pain. Acute cystitis P/ Continue current POC and Medications. Acute HD ordered. Seen and examined on HD. Continue abx and steroids. Pain control as ordered. Continue antifungal for cystitis. No NSAIDs. AM labs. Daily weight.
[2020-05-08] MEDS: MULTIVITAMINS,THERAPEUT 1 TAB PO SCH (21:16)
[2020-05-08] MEDS: ASPIRIN 81 MG CHEWABLE TABLET PO SCH (21:16)
[2020-05-09] MEDS: METRONIDAZOLE 500mg IVPB 500 MG/100 ML BAG IV SCH ×2 (00:05→08:08)
[2020-05-09] MEDS: ONDANSETRON 4 MG/2 ML VIAL IV PRN ×2 (01:12→08:17)
[2020-05-09] MEDS: HYDROMORPHONE HCL 2 MG/ML inj IV PRN ×4 (01:24→19:10)
[2020-05-09 06:12] LABS: Albumin 2.6 g/dL (3.4-5.0); Bilirubin Total 0.4 mg/dL (0.2-1.0); Potassium 3.6 mmol/L (3.5-5.1); Protein, Total 6.6 g/dL (6.4-8.2)
[2020-05-09 06:19] LABS: Absolute Lymphocytes (CBC) 1.2 K/uL (0.7-4.9); Basophils % 0.4 % (0-1.3); Hematocrit 30.2 % (36.0-45.0); Lymphocytes % 9.3 % (15.3-44.8); MPV 8.4 fL (7.6-11.3)
[2020-05-09] MEDS: FLUCONAZOLE 100mg IVPB 100 MG/50 ML BAG IV SCH (08:09)
[2020-05-09] MEDS: glipiZIDE 5 MG TAB PO SCH ×2 (08:09→16:50)
[2020-05-09] MEDS: CEFEPIME/SWI 1gm 10 ML IV SCH (08:09)
[2020-05-09] MEDS: DOCUSATE NA 100 MG CAP PO SCH ×2 (08:10→22:56)
[2020-05-09] MEDS: AMLODIPINE 10 MG TAB PO SCH (08:10)
[2020-05-09] MEDS: FUROSEMIDE 40 MG TABLET PO SCH ×2 (08:10→16:50)
[2020-05-09] MEDS: CHOLESTYRAMINE/ASP 4 GM/PKT PO SCH ×2 (08:10→16:50)
[2020-05-09] MEDS: GABAPENTIN 100 MG CAP PO SCH ×3 (08:10→22:56)
[2020-05-09] MEDS: VITAMIN D 1000 UNIT TAB PO SCH (08:11)
[2020-05-09] MEDS: carvediloL 3.125 MG TAB PO SCH ×2 (08:11→21:00)
[2020-05-09] MEDS: HEPARIN 5000 UNIT/ML 1 ML VIAL SQ SCH ×2 (08:11→22:57)
[2020-05-09] MEDS: LOSARTAN POTASSIUM 50 MG TABLET PO SCH ×2 (08:11→21:00)
[2020-05-09] MEDS ORDERED: NA CHLORIDE 0.9% 250 ML ONE (08:28)
[2020-05-09] MEDS: ERTAPENEM NA 0.5 GM in NA CHLORIDE 0.9% 100 ML IVPB SCH (11:00)
--- NOTE | 2020-05-09 12:52 | P.PN ---
Subjective Date of Service: 05/09/20 Chief Complaint: RLQ abdominal pain, inflame cecum, sepsis with WBC 17k Subjective: Other (Patient reports improvement. Abdominal pain better. Passage of gas noted No bowel movement yet.) Physical Examination - Vital Signs Temperature: 97.8 F Blood Pressure: 108/55 Pulse: 61 Respirations: 18 Pulse Ox (%): 99 - Physical Exam General: Alert, In no apparent distress, Oriented x3, Cooperative HEENT: Atraumatic Neck: Supple Respiratory: Clear to auscultation bilaterally, Normal air movement Cardiovascular: Normal pulses, Regular rate/rhythm Gastrointestinal: Normal bowel sounds, Soft and benign, No masses, No rebound, No guarding, Tenderness (Pain to the right quadrant improved.) Neurological: Normal speech, Normal strength at 5/5 x4 extr, Normal tone, Normal affect - Studies Microbiology Data (last 24 hrs): 05/03/20 09:04 Blood - Blood Aerobic Blood Culture - Final No growth in 5 days. 05/03/20 09:04 Blood - Blood Anaerobic Blood Culture - Final No growth in 5 days. 05/03/20 08:55 Blood - Blood Aerobic Blood Culture - Final No growth in 5 days. 05/03/20 08:55 Blood - Blood Anaerobic Blood Culture - Final No growth in 5 days. Medications List Reviewed: Yes Assessment & Plan Discharge Plan: Home Plan to discharge in: 48 Hours Physician Review Additional Text: Impression: Right-sided abdominal pain secondary to colitis End-stage renal disease on hemodialysis Hypertension Chronic diastolic CHF Diabetes mellitus type 2 UTI-fungal Plan: Right-sided abdominal pain secondary to colitis: Patient reports improvement in abdominal pain. Still requiring medication. Passage of gas noted. Still no bowel movement. Will discuss with surgery. Yesterday surgery recommended to give 1 dose of InVanz. Will need to check to see if antibiotics will need to be adjusted. Will discuss further with surgery and GI. Continue cefepime, Flagyl and Diflucan. Steroid was discontinued yesterday. Encourage ambulation. Anticipate improvement. End-stage renal disease on hemodialysis: Continue with dialysis. Will discuss further with nephrology Hypertension: Continue with medication. Will monitor adjust appropriately. Chronic diastolic CHF: Will monitor fluid intake. Diabetes mellitus type 2: Continue Accu-Cheks and sliding scale. UTI-fungal: Diflucan started. Time Spent Managing Pts Care (In Minutes): 55
[2020-05-09] MEDS ORDERED: Meropenem 500 MG VIAL IV SCH (14:00)
[2020-05-09] MEDS: Meropenem 500 MG in NA CHLORIDE 0.9% 100 ML IV SCH ×2 (14:36→22:56)
[2020-05-09] MEDS ORDERED: BISACODYL 10 MG RECTAL SUPP PR PRN (15:07)
--- NOTE | 2020-05-09 15:08 | P.PN ---
Subjective Date of Service: 05/09/20 Chief Complaint: RLQ abdominal pain, inflame cecum, sepsis with WBC 17k Subjective: Improving Physical Examination - Vital Signs Temperature: 97.8 F Blood Pressure: 108/55 Pulse: 61 Respirations: 19 Pulse Ox (%): 99 - Physical Exam General: Alert, In no apparent distress HEENT: Mucous membr. moist/pink Gastrointestinal: Soft and benign, Non-distended, No ascites, No tenderness, No masses, No rebound, No guarding - Studies Microbiology Data (last 24 hrs): 05/03/20 09:04 Blood - Blood Aerobic Blood Culture - Final No growth in 5 days. 05/03/20 09:04 Blood - Blood Anaerobic Blood Culture - Final No growth in 5 days. 05/03/20 08:55 Blood - Blood Aerobic Blood Culture - Final No growth in 5 days. 05/03/20 08:55 Blood - Blood Anaerobic Blood Culture - Final No growth in 5 days. Medications List Reviewed: Yes Assessment And Plan - Current Problems (Diagnosis) (1) Typhlitis Current Visit: Yes Status: Acute Plan: - Continue IV hydration - Continue antibiotic coverage, but consider carbapenem - serial exams - continue medical management - consider magnesium citrate for bowel function and dulcolax - ambulate with assist - incentive spirometry - continue treatment for UTI Physician Review Additional Text: Impression: Right-sided abdominal pain secondary to colitis End-stage renal disease on hemodialysis Hypertension Chronic diastolic CHF Diabetes mellitus type 2 UTI-fungal Plan: Right-sided abdominal pain secondary to colitis: Patient reports improvement in abdominal pain. Still requiring medication. Passage of gas noted. Still no bowel movement. Will discuss with surgery. Yesterday surgery recommended to give 1 dose of InVanz. Will need to check to see if antibiotics will need to be adjusted. Will discuss further with surgery and GI. Continue cefepime, Flagyl and Diflucan. Steroid was discontinued yesterday. Encourage ambulation. Anticipate improvement. End-stage renal disease on hemodialysis: Continue with dialysis. Will discuss further with nephrology Hypertension: Continue with medication. Will monitor adjust appropriately. Chronic diastolic CHF: Will monitor fluid intake. Diabetes mellitus type 2: Continue Accu-Cheks and sliding scale. UTI-fungal: Diflucan started.
[2020-05-09] MEDS: MAGNESIUM CITRATE 300 ML BOT PO SCH (16:50)
[2020-05-09 18:28] LABS: HBsAG Nonreactive (Nonreactive)
--- NOTE | 2020-05-09 19:31 | RAD REPORT ---
EXAM DESCRIPTION: RAD - Chest Single View - 05/09/2020 7:18 pm CLINICAL HISTORY: SOB COMPARISON: Portable May 03 TECHNIQUE: AP portable chest image was obtained 05/09/2020 7:18 pm . FINDINGS: Lung volumes are low. No peripheral mass or consolidation. No new or progressive interstit ial finding. Upper lobe vasculature within normal limits. Dialysis catheter in place. Heart size is p rominent but stable. No measurable pleural effusion and no pneumothorax. No acute bony abnormality se en. No acute aortic findings suspected. IMPRESSION: No acute cardiopulmonary process. No suspicious change from comparison.
--- NOTE | 2020-05-09 22:42 | P.PN ---
Date of Service: 05/09/20 Vital Signs Temp Pulse Resp BP Pulse Ox 97.5 F 56 22 H 92/51 L 100 05/09/20 16:00 05/09/20 16:50 05/09/20 19:10 05/09/20 16:50 05/09/20 19:10 Medications Acetaminophen (Tylenol -Extra Strength) 500 mg PO Q4HP PRN PRN Reason: Pain/fever Stop: 06/02/20 12:45 Last Admin: 05/09/20 10:43 Dose: 500 mg Documented by: Amlodipine Besylate (Norvasc) 10 mg PO DAILY SHIMA Stop: 06/05/20 09:01 Last Admin: 05/09/20 08:10 Dose: 10 mg Documented by: Aspirin (Aspirin Chewable) 81 mg PO BEDTIME SHIMA Stop: 06/04/20 21:01 Last Admin: 05/08/20 21:16 Dose: 81 mg Documented by: Bisacodyl (Bisacodyl 10 Mg Rectal Supp) 10 mg PA DAILY PRN PRN Reason: CONSTIPATION Stop: 06/08/20 15:08 Calcitriol (Calcitrol 0.25 Mcg Cap) 0.5 mcg PO DAILY SHIMA Stop: 06/09/20 09:01 Carvedilol (Coreg) 3.125 mg PO BID SHIMA Stop: 06/04/20 21:01 Last Admin: 05/09/20 08:11 Dose: 3.125 mg Documented by: Cholecalciferol (Vitamin D 1000 Iu Tab) 1,000 unit PO DAILY SHIMA Stop: 06/05/20 09:01 Last Admin: 05/09/20 08:11 Dose: 1,000 unit Documented by: Cholestyramine Resin (Questran Light) 4 gm PO BIDWM SHIMA Stop: 06/04/20 17:01 Last Admin: 05/09/20 16:50 Dose: 4 gm Documented by: Dextrose (Dextrose 50% Syringe) 12.5 gm IV PRN PRN; Protocol PRN Reason: HYPOGLYCEMIA Stop: 06/05/20 00:40 Docusate Sodium (Colace Cap) 100 mg PO BID SHIMA Stop: 06/06/20 21:01 Last Admin: 05/09/20 08:10 Dose: 100 mg Documented by: Furosemide (Lasix) 40 mg PO BIDL SHIMA Stop: 06/04/20 17:01 Last Admin: 05/09/20 16:50 Dose: 40 mg Documented by: Gabapentin (Neurontin) 200 mg PO TID SHIMA Stop: 06/04/20 14:01 Last Admin: 05/09/20 14:18 Dose: 200 mg Documented by: Glipizide (Glucotrol) 5 mg PO BIDAC SHIMA Stop: 06/04/20 16:31 Last Admin: 05/09/20 16:50 Dose: 5 mg Documented by: Heparin Sodium (Porcine) (Heparin 5000 Unit/Ml 1 Ml Vial) 5,000 unit SQ Q12HR SHIMA Stop: 06/02/20 21:01 Last Admin: 05/09/20 08:11 Dose: 5,000 unit Documented by: Heparin Sodium (Porcine) (Heparin 1,000 Unit/Ml Vial) 6,000 unit IV EVERY HD PRN PRN Reason: AFTER EACH Stop: 06/02/20 20:41 Last Admin: 05/08/20 11:58 Dose: 6,000 unit Documented by: Hydromorphone HCl (Dilaudid) 2 mg IV Q4H PRN PRN Reason: Pain scale 8-10 (Severe) Stop: 06/07/20 02:31 Last Admin: 05/09/20 19:10 Dose: 2 mg Documented by: Albumin Human (Albumin 25%) 50 mls @ 100 mls/hr IV EVERY HD [facility] Stop: 06/02/20 21:01 Fluconazole (Diflucan 100 Mg/50 Ml Ivpb (Premix)) 100 mg in 50 mls @ 50 mls/hr IV DAILY [facility]; Protocol Stop: 06/07/20 10:01 Last Admin: 05/09/20 08:09 Dose: 50 mls Documented by: Meropenem 500 mg/ Sodium (Chloride) 100 mls @ 100 mls/hr IV Q12HR [facility] Stop: 06/08/20 14:01 Last Admin: 05/09/20 14:36 Dose: 100 mls Documented by: Losartan Potassium (Cozaar) 50 mg PO BID SHIMA Stop: 06/04/20 21:01 Last Admin: 05/09/20 08:11 Dose: 50 mg Documented by: Magnesium Citrate (Magnesium Citrate 300 Ml Bot) 300 ml PO 1X SHIMA Stop: 06/08/20 16:01 Last Admin: 05/09/20 16:50 Dose: 300 ml Documented by: Mannitol (Mannitol 12.5 Gm/50 Ml Vial) 12.5 gm IV EVERY HD PRN PRN Reason: Titrate to SBP (MUST DEFINE) Stop: 06/02/20 20:41 Last Admin: 05/08/20 13:00 Dose: 12.5 gm Documented by: Ondansetron HCl (Zofran) 4 mg IV Q6HP PRN PRN Reason: NAUSEA / VOMITING Stop: 06/02/20 12:45 Last Admin: 05/09/20 08:17 Dose: 4 mg Documented by: Sodium Chloride (Normal Saline Flush) 10 ml IV BID SHIMA Stop: 06/02/20 21:01 Last Admin: 05/09/20 08:11 Dose: 10 ml Documented by: Vitamin B Complex/Vit C/Folic Acid (Nephro-Nikole) 1 tab PO BEDTIME SHIMA Stop: 06/04/20 21:01 Last Admin: 05/08/20 21:16 Dose: 1 tab Documented by: Microbiology Results 05/03/20 09:04 Blood - Blood Aerobic Blood Culture - Final No growth in 5 days. 05/03/20 09:04 Blood - Blood Anaerobic Blood Culture - Final No growth in 5 days. 05/03/20 08:55 Blood - Blood Aerobic Blood Culture - Final No growth in 5 days. 05/03/20 08:55 Blood - Blood Anaerobic Blood Culture - Final No growth in 5 days. 05/03/20 11:20 Clean Catch Urine [place] Count - Final >100,000 CFU/ML. 05/03/20 11:20 Clean Catch Urine - Final 05/03/20 10:55 Nasopharnyx Influenza Type A Antigen Screen - Final 05/03/20 10:55 Nasopharnyx Influenza Type B Antigen Screen - Final Assessment/ Plan: Nephrology CPS stable without CP or SOB. No acute events overnight. Abdominal pain still improving. More activity today. Vitals, medications, blood work and imaging reviewed in the chart. Physical Examination General: In no apparent distress, Oriented x3, Cooperative, Moderate distress HEENT: Atraumatic, Normocephalic Neck: Supple Respiratory: Diminished Cardiovascular: Regular rate/rhythm, Edema Gastrointestinal: Non-distended, No guarding, Tenderness Musculoskeletal: No clubbing, No contractures Integumentary: No rashes, No cyanosis Neurological: Normal speech Left AVF with thrill Laboratory Data (last 24 hrs) 05/03/20 09:17: WBC Cancelled, Hgb Cancelled, Hct Cancelled, Plt Count Cancelled 05/03/20 09:17: Sodium Cancelled, Potassium Cancelled, BUN Cancelled, Creatinine Cancelled, Glucose Cancelled, Total Bilirubin Cancelled, AST Cancelled, ALT Cancelled, Alkaline Phosphatase Cancelled, Lipase Cancelled 05/03/20 08:55: PT 13.0 H, INR 1.10, APTT 30.4 05/03/20 08:55: WBC 15.4 H, Hgb 10.4 L, Hct 32.4 L, Plt Count 255 05/03/20 08:55: Sodium 138, Potassium 4.5, BUN 38 H, Creatinine 5.07 H*, Glucose 200 H, Total Bilirubin 0.4, AST 24, ALT 35, Alkaline Phosphatase 92, Amylase 68, Lipase 230 Imagings Data: EXAM DESCRIPTION: CT - Abdomen Pelvis Wo Contrast - 05/03/2020 10:05 am CLINICAL HISTORY: Abdominal pain. RLQ pain;Abd pain COMPARISON: Abdomen Pelvis W Contrast dated 05/30/2018 TECHNIQUE: CT imaging of the abdomen and pelvis was performed without contrast. Solid organ, bowel and vascular assessment is limited due to lack of IV and oral contrast. All CT scans are performed using dose optimization technique as appropriate and may include automated exposure control or mA/KV adjustment according to patient size. FINDINGS: Mild linear subsegmental atelectasis in both lung bases.Cholecystectomy clips. The liver, spleen, pancreas, adrenal glands and left kidney are within normal limits for a limited non-contrast examination.Punctate 1-2 mm calculus is seen inferior right renal calyx without hydronephrosis appear No bowel obstruction, free air, free fluid or abscess. Thickening of the giron of the cecum noted somewhat asymmetric in nature, with right-sided lateral wall thickening up to 24 mm noted. Terminal ileum appears mildly thickened as well. Appendectomy. Midline hernia repair changes seen. Small fat containing left inguinal hernia. The osseous structures are within normal limits. IMPRESSION: Thickening of the cecal wall is noted up to 24 mm and somewhat asymmetric. Inflammatory condition such S typhlitis or other inf ection/inflammation the cecum is possible. The diagnosis of concern would be malignancy in the cecum and followup colonoscopy would be advised. EXAM DESCRIPTION: RAD - Chest Single View - 05/03/2020 9:32 am CLINICAL HISTORY: FEVER Chest pain. COMPARISON: Chest Single View dated 06/07/2018; Chest Single View dated 06/02/2018; Abdomen 1 View (KUB) dated 06/01/2018; Chest Pa And Lat (2 Views) dated 05/31/2018 FINDINGS: Portable technique limits examination quality. Mild interstitial pulmonary edema. The heart is upper limit of normal in size. Left-sided venous catheter has tip in the right atrium. IMPRESSION: Mild CHF versus volume overload pattern. Conclusions/Impression: A/ ESRD on HD HTN with CKD/ CHF Diastolic CHF, chronic DM II with CKD Anemia in CKD ÁNGEL/ Secondary HyperPTH Acute typhlitis with abdominal pain. Acute cystitis P/ Continue current POC and Medications. Next HD tomorrow. Continue abx and steroids. Pain control as ordered. Continue antifungal for cystitis. Follow up with surgery. No NSAIDs. AM labs. Daily weight.
[2020-05-09] MEDS: ASPIRIN 81 MG CHEWABLE TABLET PO SCH (22:56)
[2020-05-09] MEDS: MULTIVITAMINS,THERAPEUT 1 TAB PO SCH (23:16)
[2020-05-10 04:32] LABS: Absolute Lymphocytes (CBC) 1.2 K/uL (0.7-4.9); Basophils % 0.5 % (0-1.3); Hematocrit 26.9 % (36.0-45.0); MPV 7.9 fL (7.6-11.3); RBC Red Blood Cell Count 3.03 M/uL (3.86-4.86)
[2020-05-10 04:57] LABS: Albumin 2.3 g/dL (3.4-5.0); Bilirubin Total 0.3 mg/dL (0.2-1.0); Protein, Total 5.8 g/dL (6.4-8.2)
[2020-05-10] MEDS: CHOLESTYRAMINE/ASP 4 GM/PKT PO SCH ×2 (08:56→17:02)
[2020-05-10] MEDS: GABAPENTIN 100 MG CAP PO SCH ×3 (08:58→21:40)
[2020-05-10] MEDS: HEPARIN 5000 UNIT/ML 1 ML VIAL SQ SCH ×2 (08:58→21:00)
[2020-05-10] MEDS: VITAMIN D 1000 UNIT TAB PO SCH (08:58)
[2020-05-10] MEDS: FUROSEMIDE 40 MG TABLET PO SCH ×2 (08:58→17:02)
[2020-05-10] MEDS: glipiZIDE 5 MG TAB PO SCH ×2 (08:58→17:02)
[2020-05-10] MEDS: DOCUSATE NA 100 MG CAP PO SCH ×2 (08:58→21:00)
[2020-05-10] MEDS: FLUCONAZOLE 100mg IVPB 100 MG/50 ML BAG IV SCH (08:59)
[2020-05-10] MEDS: HYDROMORPHONE HCL 2 MG/ML inj IV PRN ×3 (08:59→21:56)
[2020-05-10] MEDS: Meropenem 500 MG in NA CHLORIDE 0.9% 100 ML IV SCH ×2 (08:59→21:40)
[2020-05-10] MEDS: ONDANSETRON 4 MG/2 ML VIAL IV PRN (08:59)
[2020-05-10] MEDS: LOSARTAN POTASSIUM 50 MG TABLET PO SCH ×2 (09:00→21:41)
[2020-05-10] MEDS: carvediloL 3.125 MG TAB PO SCH ×2 (09:00→21:41)
[2020-05-10] MEDS: AMLODIPINE 10 MG TAB PO SCH (09:00)
[2020-05-10] MEDS: CALCITROL 0.25 MCG CAP PO SCH (09:06)
[2020-05-10] MEDS ORDERED: NA CHLORIDE 0.9% 250 ML ONE (09:20)
--- NOTE | 2020-05-10 09:24 | P.PN ---
Subjective Date of Service: 05/10/20 Chief Complaint: RLQ abdominal pain, inflame cecum, sepsis with WBC 17k Subjective: Improving (Patient continues to have improvement, sitting up, passing gas, pain much improved) Physical Examination - Vital Signs Temperature: 97.5 F Blood Pressure: 111/54 Pulse: 69 Respirations: 16 Pulse Ox (%): 97 - Physical Exam General: Alert, In no apparent distress Gastrointestinal: Soft and benign, Non-distended, No ascites, No tenderness, No masses, No rebound, No guarding - Studies Medications List Reviewed: Yes Assessment And Plan - Current Problems (Diagnosis) (1) Typhlitis Current Visit: Yes Status: Acute Plan: - Continue IV hydration - Continue antibiotic coverage,carbapenem - serial exams - continue medical management - consider magnesium citrate for bowel function and dulcolax - ambulate with assist - incentive spirometry - continue treatment for UTI - advance to full liquid diet, if tolerated can consider soft Physician Review Additional Text: Impression: Right-sided abdominal pain secondary to colitis End-stage renal disease on hemodialysis Hypertension Chronic diastolic CHF Diabetes mellitus type 2 UTI-fungal Plan: Right-sided abdominal pain secondary to colitis: Patient reports improvement in abdominal pain. Still requiring medication. Passage of gas noted. Still no bowel movement. Will discuss with surgery. Yesterday surgery recommended to give 1 dose of InVanz. Will need to check to see if antibiotics will need to be adjusted. Will discuss further with surgery and GI. Continue cefepime, Flagyl and Diflucan. Steroid was discontinued yesterday. Encourage ambulation. Anticipate improvement. End-stage renal disease on hemodialysis: Continue with dialysis. Will discuss further with nephrology Hypertension: Continue with medication. Will monitor adjust appropriately. Chronic diastolic CHF: Will monitor fluid intake. Diabetes mellitus type 2: Continue Accu-Cheks and sliding scale. UTI-fungal: Diflucan started.
[2020-05-10] MEDS: ALBUMIN HUMAN 25% 50 ML IV SCH (11:15)
[2020-05-10] MEDS: MANNITOL 25% 12.5 GM/50 ML VIAL IV PRN (12:45)
--- NOTE | 2020-05-10 15:34 | P.PN ---
Subjective Date of Service: 05/10/20 Chief Complaint: RLQ abdominal pain, inflame cecum, sepsis with WBC 17k Subjective: Other (Pain better improved. Still passing gas. No bowel movement noted.) Physical Examination - Vital Signs Temperature: 97.5 F Blood Pressure: 111/54 Pulse: 69 Respirations: 18 Pulse Ox (%): 97 - Physical Exam General: Alert, In no apparent distress, Oriented x3, Cooperative HEENT: Atraumatic Neck: Supple Respiratory: Clear to auscultation bilaterally, Normal air movement Cardiovascular: Normal pulses, Regular rate/rhythm Gastrointestinal: Normal bowel sounds, No masses, Tenderness (Tenderness to the right quadrant improved.) Neurological: Normal speech, Normal strength at 5/5 x4 extr, Normal tone, Normal affect - Studies Medications List Reviewed: Yes Assessment & Plan Discharge Plan: Home Plan to discharge in: 48 Hours Physician Review Additional Text: Impression: Right-sided abdominal pain secondary to colitis End-stage renal disease on hemodialysis Hypertension Chronic diastolic CHF Diabetes mellitus type 2 UTI-fungal Plan: Right-sided abdominal pain secondary to colitis: Patient with slow improvement. Case discussed with surgery. Continue IV antibiotic therapy. Surgery plans to advance diet. Hopefully improvement over the next 24-48 hr possible discharge at that time. End-stage renal disease on hemodialysis: Continue with dialysis. Will discuss further with nephrology Hypertension: Continue with medication. Will monitor adjust appropriately. Chronic diastolic CHF: Will monitor fluid intake. Diabetes mellitus type 2: Continue Accu-Cheks and sliding scale. UTI-fungal: Diflucan to be continued orally Time Spent Managing Pts Care (In Minutes): 55
[2020-05-10] MEDS: MAGNESIUM CITRATE 300 ML BOT PO SCH (16:00)
--- NOTE | 2020-05-10 17:46 | PN ---
Date of Progress Note: 05/10/2020 Subjective: Patient was seen and examined at bedside. Objective: Vital Signs: Been reviewed and are stable. General: She appears in no acute distress. Lungs: Clear to auscultation. Abdomen: Soft and nontender with some mild tenderness noted in the right lower quadrant. Laboratory Data: Has been reviewed and sodium is 133, potassium of 4, creatinine of 4.6, and BUN of 30. CBC showing stable hemoglobin and hematocrit, and WBC count of 12.1. Current Medications: Reviewed in detail. Impression: 1.End-stage renal disease, on dialysis. 2.Anemia secondary to chronic disease. 3.Right lower quadrant pain and tenderness secondary to colitis. The patient is currently on antibi otics. The patient is also being followed by Dr. Pace. Clinically, she is doing better. Continu e antibiotics and follow up closely. 4.Type 2 diabetes. 5.Fungal urinary tract infection. The patient is currently on Diflucan. Plan: Overall, patient is doing much better at this time, clinically improving. WBC count remains e levated, can be monitored. Continue antibiotics. She is on dialysis; Friday, Friday, Friday. We will follow up closely. ABDIRIZAK/MICHAEL Voice ID: [id number] Report ID: [id number]
--- NOTE | 2020-05-10 17:55 | P.PN ---
Subjective Date of Service: 05/10/20 Chief Complaint: RLQ abdominal pain, inflame cecum, sepsis with WBC 17k Subjective: No new changes (Sitting at bedside, stating she has 8/10 pain in RLQ today, but more mobile. 2nd CT with improvement, decreased WBC over past 4 days with change in antibiotics 1-2 days ago to Merrem. Finally tolerated CL tray today - ate all of it.) Review of Systems 10-point ROS is otherwise unremarkable General: Weakness, Malaise Gastrointestinal: Abdominal Pain (RLQ) Physical Examination - Vital Signs Temperature: 97.3 F Blood Pressure: 114/60 Pulse: 68 Respirations: 16 Pulse Ox (%): 96 - Physical Exam General: Alert, In no apparent distress, Oriented x3, Cooperative HEENT: Atraumatic, Normocephalic, PERRLA, EOMI Neck: Supple Respiratory: Normal air movement Cardiovascular: Normal pulses Gastrointestinal: No rebound, Tenderness (RLQ), Guarding Neurological: Normal speech - Studies Medications List Reviewed: Yes Assessment And Plan - Current Problems (Diagnosis) (1) RLQ abdominal pain Current Visit: Yes Status: Acute (2) Abnormal CT of the abdomen Current Visit: Yes Status: Acute (3) Acute cecitis Current Visit: Yes Status: Acute (4) History of 2019 novel coronavirus disease (COVID-19) Current Visit: Yes Status: Acute (5) CHF (congestive heart failure), NYHA class IV Onset Date: 06/09/18 Current Visit: No Status: Acute Qualifiers: (6) Diabetes mellitus Onset Date: 06/09/18 Current Visit: No Status: Chronic (7) HTN (hypertension) Onset Date: 06/09/18 Current Visit: No Status: Chronic Qualifiers: - Plan REC: 1) continue antibiotics and Questran 2) CL diet 3) monitor labs 4) surgery following Physician Review Additional Text: Impression: Right-sided abdominal pain secondary to colitis End-stage renal disease on hemodialysis Hypertension Chronic diastolic CHF Diabetes mellitus type 2 UTI-fungal Plan: Right-sided abdominal pain secondary to colitis: Patient with slow improvement. Case discussed with surgery. Continue IV antibiotic therapy. Surgery plans to advance diet. Hopefully improvement over the next 24-48 hr possible discharge at that time. End-stage renal disease on hemodialysis: Continue with dialysis. Will discuss further with nephrology Hypertension: Continue with medication. Will monitor adjust appropriately. Chronic diastolic CHF: Will monitor fluid intake. Diabetes mellitus type 2: Continue Accu-Cheks and sliding scale. UTI-fungal: Diflucan to be continued orally
[2020-05-10] MEDS: ASPIRIN 81 MG CHEWABLE TABLET PO SCH (21:40)
[2020-05-10] MEDS: MULTIVITAMINS,THERAPEUT 1 TAB PO SCH (21:40)
[2020-05-11] MEDS: D50W 25 GM/50 ML SYRINGE IV PRN ×2 (04:25→05:10)
[2020-05-11] MEDS ORDERED: D50W 50 ML IV ONE (04:44)
[2020-05-11] MEDS ORDERED: NALOXONE HCL 2 MG/2 ML VIAL ONE (04:51)
--- NOTE | 2020-05-11 04:51 | P.PN ---
Date of Service: 05/11/20 Rapid response was called by nursing staff. They came to check on the patient and she was found to be cool, clammy, with decreased mental status. Blood glucose was checked and was found to be 37. Patient was given half an amp of D50 and rapid response was called. When I got the patient's bedside she is still not responsive but breathing spontaneously and vital signs were stable. Pupils noted to be pinpoint, patient has been receiving IV Dilaudid and is on dialysis. Patient was given Narcan 2 mg IV as well. Shortly after patient began moving all her extremities and yawning. Stat CT head ordered. Believe this is all related to hypoglycemia, will continue to keep close eye on her.
[2020-05-11] MEDS ORDERED: NALOXONE HCL 2 MG/2 ML VIAL IV ONE (05:41)
[2020-05-11 06:03] LABS: Absolute Lymphocytes (CBC) 0.9 K/uL (0.7-4.9); Basophils % 0.8 % (0-1.3); Hematocrit 26.8 % (36.0-45.0); RBC Red Blood Cell Count 3.04 M/uL (3.86-4.86)
[2020-05-11 06:19] LABS: Albumin 2.2 g/dL (3.4-5.0); Bilirubin Total 0.3 mg/dL (0.2-1.0); Potassium 3.7 mmol/L (3.5-5.1); Protein, Total 5.5 g/dL (6.4-8.2)
[2020-05-11] MEDS: glipiZIDE 5 MG TAB PO SCH ×2 (07:30→16:43)
[2020-05-11] MEDS: D5 0.45 NS 1,000 ML IV SCH (08:59)
[2020-05-11] MEDS: carvediloL 3.125 MG TAB PO SCH ×2 (09:00→21:41)
[2020-05-11] MEDS: GABAPENTIN 100 MG CAP PO SCH ×3 (09:00→21:41)
[2020-05-11] MEDS: CHOLESTYRAMINE/ASP 4 GM/PKT PO SCH ×2 (09:00→16:43)
[2020-05-11] MEDS: CALCITROL 0.25 MCG CAP PO SCH (09:00)
[2020-05-11] MEDS: FUROSEMIDE 40 MG TABLET PO SCH ×2 (09:00→16:43)
[2020-05-11] MEDS: VITAMIN D 1000 UNIT TAB PO SCH (09:01)
[2020-05-11] MEDS: FLUCONAZOLE 100 MG TAB PO SCH (09:01)
[2020-05-11] MEDS: AMLODIPINE 10 MG TAB PO SCH (09:01)
[2020-05-11] MEDS: LOSARTAN POTASSIUM 50 MG TABLET PO SCH ×2 (09:01→21:40)
[2020-05-11] MEDS: DOCUSATE NA 100 MG CAP PO SCH ×2 (09:02→21:00)
[2020-05-11] MEDS: HEPARIN 5000 UNIT/ML 1 ML VIAL SQ SCH ×2 (09:02→21:55)
--- NOTE | 2020-05-11 09:08 | P.PN ---
Subjective Date of Service: 05/11/20 Chief Complaint: RLQ abdominal pain, inflame cecum, sepsis with WBC 17k Subjective: Other (Patient had some altered mental status changes last night. Blood sugar was low. Patient given D50. CT scan ordered. CT head without contrast negative. Patient more alert when I arrived to evaluate patient this morning. She was moving all 4s. She reports that she was hungry and thirsty.) Physical Examination - Vital Signs Temperature: 97.1 F Blood Pressure: 159/65 Pulse: 77 Respirations: 16 Pulse Ox (%): 99 - Physical Exam General: Alert, In no apparent distress, Cooperative HEENT: Atraumatic Neck: Supple Respiratory: Clear to auscultation bilaterally, Normal air movement Cardiovascular: Normal pulses, Regular rate/rhythm Gastrointestinal: Normal bowel sounds, Tenderness (Improved tenderness to the right quadrant ) Neurological: Normal speech, Normal strength at 5/5 x4 extr, Normal tone, Normal affect - Studies Medications List Reviewed: Yes Assessment & Plan Discharge Plan: Home Plan to discharge in: 48 Hours Physician Review Additional Text: Impression: Metabolic encephalopathy likely related to hypoglycemia Right-sided abdominal pain secondary to colitis End-stage renal disease on hemodialysis Hypertension Chronic diastolic CHF Diabetes mellitus type 2 UTI-fungal Plan: Metabolic encephalopathy likely related to hypoglycemia: Patient was evaluated earlier. Patient was hypoglycemic. Patient required D50. I evaluated the patient. Blood sugar still low. Will start D5 half-normal. Will provide diet. Patient intake has been poor. CT brain within without contrast unremarkable. Case discussed with Neurology. Will obtain MRI to rule out TIA versus CVA. Patient appears back to her normal baseline. Encourage intake. Will continue to monitor and reassess. Right-sided abdominal pain secondary to colitis: Patient with slow improvement. Case discussed with surgery yesterday. Surgery plans to increase diet. Continue with IV antibiotic therapy at this time. End-stage renal disease on hemodialysis: Continue with dialysis. Will discuss further with nephrology Hypertension: Continue with medication. Will monitor adjust appropriately. Chronic diastolic CHF: Will monitor fluid intake. Diabetes mellitus type 2: Continue Accu-Cheks and sliding scale. UTI-fungal: Patient remains on Diflucan Time Spent Managing Pts Care (In Minutes): 55
[2020-05-11] MEDS: Meropenem 500 MG in NA CHLORIDE 0.9% 100 ML IV SCH ×2 (09:51→21:40)
[2020-05-11] MEDS ORDERED: HYDROCODONE/APAP 5/325 MG TAB PO PRN (12:21)
[2020-05-11] MEDS ORDERED: TRAMADOL HCL 50 MG TAB PO PRN (12:21)
--- NOTE | 2020-05-11 13:51 | RAD REPORT ---
EXAM DESCRIPTION: CTHead angio05/11/2020 8:11 am ADDENDUM #1 These findings were discussed with Luis Faulkner RN on 05/11/2020 at 7: 26 AM central time. Electronically signed by: Bianca Gayatri MERRITT 05/11/2020 7:29 AM PRODUCTION HAND End of Addendum CLINICAL HISTORY: 65 years Female stroke like sx. TECHNIQUE: Following dynamic intravenous nonionic contrast infusion, multiple axial helical CT image s with multiplanar reconstructions were obtained through the head. No MIP images were obtained. The C T study is performed according to ALARA (as low as reasonably achievable) or ALARA/IMAGE GENTLY, with automatic adjustment of mA and/or kV according to patient size. Performed on: 05/11/2020 at 6:01 AM COMPARISON: Head CT performed earlier the same day. FINDINGS: LEFT: INTERNAL CAROTID ARTERY: The distal internal carotid artery is unremarkable. There are mild atherosclerotic calcifications babita ng the cavernous left ICA. ANTERIOR CEREBRAL ARTERY: he A1 segment is normal in caliber and contour. The A2 segment is normal in caliber and contour. The region of the anterior communicating artery is unremarkable. MIDDLE CEREBRAL ARTERY: The M1 segment is normal in caliber and contour. The M2 branches normal in ca liber and contour. POSTERIOR CEREBRAL ARTERY: he P1 segment is normal in caliber and contour. The P2 segment is normal i n caliber and contour. The left posterior communicating artery is patent. VERTEBRAL ARTERY: The intradural left vertebral artery is normal in caliber and contour. RIGHT: INTERNAL CAROTID ARTERY: The distal internal carotid artery is unremarkable. There are mild atherosclerotic calcifications babita ng the cavernous right ICA. ANTERIOR CEREBRAL ARTERY: The A1 segment is normal in caliber and contour. The A2 segment is normal i n caliber and contour. MIDDLE CEREBRAL ARTERY: he M1 segment is normal in caliber and contour. The M2 branches normal in tonya iber and contour. POSTERIOR CEREBRAL ARTERY: The P1 segment is normal in caliber and contour. The P2 segment is normal in caliber and contour. The right posterior communicating artery is hypoplastic or aplastic. VERTEBRAL ARTERY: The intradural right vertebral artery is markedly diminutive in caliber. BASILAR ARTERY: The basilar artery is normal in caliber and contour. DURAL VENOUS SINUSES: The dural venous sinuses are patent. NON-ANGIOGRAPHIC FINDINGS: There is mild mucosal thickening of the paranasal sinuses. The orbital contents are unremarkable. The mastoid air cells are grossly clear. IMPRESSION: 1. Essentially normal intracranial CTA. There is no evidence of intracranial large vesse l occlusion or significant stenosis. No definite vascular anomaly is identified. 2. The intradural right vertebral artery is markedly diminutive in caliber and could possibly termina kane in a posterior inferior cerebellar artery, a developmental variant. 3. Mild mucosal thickening of the paranasal sinuses. Electronically signed by: Bianca Mendieta DO 05/11/2020 7:15 AM PRODUCTION HAND Due to temporary technical issues with the PACS/Fluency reporting system, reports are being signed by the in house radiologists without review as a courtesy to insure prompt reporting. The interpreting radiologist is fully responsible for the content of the report.
--- NOTE | 2020-05-11 14:15 | RAD REPORT ---
EXAM DESCRIPTION: CT - Ct Stroke Brain Wo Cont - 05/11/2020 6:53 am CLINICAL HISTORY: 65 years Female decrease LOC TECHNIQUE: Multiple axial CT images of the brain were performed followed by sagittal and coronal rec onstructed images. The CT study is performed according to ALARA (as low as reasonably achievable) or ALARA/IMAGE GENTLY, with automatic adjustment of mA and/or kV according to patient size. Performed on: 05/11/2020 at 4:46 AM COMPARISON: None. FINDINGS: Brain: There is no evidence of mass, acute mass effect or midline shift. There are no acut e extra-axial fluid collections. There is no evidence of acute intracranial hemorrhage. The cerebra l sulci and ventricles are prominent consistent with age-related volume loss..There are scattered are as of decreased attenuation within the subcortical and periventricular white matter most likely due t o mild chronic microangiopathy. There is no evidence of a hyperdense MCA. There may be an old lacunar infarct in the left basal ganglia. There is a questionable subtle area of decreased attenuation in t he posterior left temporal lobe (series 201, image 22, series 202, image 44 and series 203, image 56) . Acute or chronic ischemic changes are not excluded. Paranasal Sinuses and Mastoids: There is mild mucosal thickening of the left maxillary sinus. The mas toid air cells are grossly clear. Orbits: The orbital contents are grossly unremarkable. Bones: No acute osseous abnormalities are identified. Soft Tissues: No focal soft tissue abnormalities are identified. IMPRESSION: 1. Questionable acute versus chronic ischemic changes involving the posterior left tempo ral lobe as described above. 2. Mild age-related cerebral atrophy with findings compatible with mild chronic microangiopathy and p robable old lacunar infarct in the left basal ganglia. 3. Otherwise, unremarkable unenhanced head CT. These critical findings were discussed with Jesi Cornejo, charge nurse on 05/21/2020 at 5: 20 AM ce ntral time. Electronically signed by: Bianca Mendieta DO 05/11/2020 5:20 AM DIVING INSTRUCTOR Due to temporary technical issues with the PACS/Fluency reporting system, reports are being signed by the in house radiologists without review as a courtesy to insure prompt reporting. The interpreting radiologist is fully responsible for the content of the report.
--- NOTE | 2020-05-11 14:34 | P.PN ---
Subjective Date of Service: 05/11/20 Chief Complaint: RLQ abdominal pain, inflame cecum, sepsis with WBC 17k Subjective: Improving Physical Examination - Vital Signs Temperature: 96.8 F Blood Pressure: 137/63 Pulse: 75 Respirations: 18 Pulse Ox (%): 100 - Physical Exam General: Alert, In no apparent distress, Cooperative HEENT: Mucous membr. moist/pink Neck: Supple Cardiovascular: No edema Gastrointestinal: Soft and benign, Non-distended, No ascites, No tenderness, No masses, No rebound, No guarding - Studies Medications List Reviewed: Yes Assessment And Plan - Current Problems (Diagnosis) (1) Typhlitis Current Visit: Yes Status: Acute Plan: - Continue IV hydration - antibiotic coverage,carbapenem - dc - serial exams - continue medical management - ambulate with assist - incentive spirometry - advance to soft if tolerated may DC from surgical standpoint Physician Review Additional Text: Impression: Metabolic encephalopathy likely related to hypoglycemia Right-sided abdominal pain secondary to colitis End-stage renal disease on hemodialysis Hypertension Chronic diastolic CHF Diabetes mellitus type 2 UTI-fungal Plan: Metabolic encephalopathy likely related to hypoglycemia: Patient was evaluated earlier. Patient was hypoglycemic. Patient required D50. I evaluated the patient. Blood sugar still low. Will start D5 half-normal. Will provide diet. Patient intake has been poor. CT brain within without contrast unremarkable. Case discussed with Neurology. Will obtain MRI to rule out TIA versus CVA. Patient appears back to her normal baseline. Encourage intake. Will continue to monitor and reassess. Right-sided abdominal pain secondary to colitis: Patient with slow improvement. Case discussed with surgery yesterday. Surgery plans to increase diet. Continue with IV antibiotic therapy at this time. End-stage renal disease on hemodialysis: Continue with dialysis. Will discuss further with nephrology Hypertension: Continue with medication. Will monitor adjust appropriately. Chronic diastolic CHF: Will monitor fluid intake. Diabetes mellitus type 2: Continue Accu-Cheks and sliding scale. UTI-fungal: Patient remains on Diflucan
--- NOTE | 2020-05-11 16:05 | RAD REPORT ---
EXAM DESCRIPTION: MRI - Brain Wo Cont - 05/11/2020 3:53 pm CLINICAL HISTORY: AMS, hypoglycemia Headache, drowsiness COMPARISON: Head angio dated 05/11/2020 TECHNIQUE: Multi-sequence, multiplanar MR imaging of the brain was performed without contrast. FINDINGS: No intracranial hemorrhage, hydrocephalus or extra-axial fluid collections.Mild T2 and FLA IR hyperintensity in the periventricular and deep white matter is noted. No edema or shift of midline structures. No findings to suspect brain mass. DWI is negative for acute CVA. Midline structures are normally formed. Small polyp or mucous retention cyst in the inferior left maxillary antrum. Trace fluid in both masto id air cells. IMPRESSION: No evidence of acute CVA or other acute intracranial process.
[2020-05-11] MEDS: MULTIVITAMINS,THERAPEUT 1 TAB PO SCH (21:41)
[2020-05-11] MEDS: ASPIRIN 81 MG CHEWABLE TABLET PO SCH (21:41)
--- NOTE | 2020-05-11 22:40 | P.PN ---
Date of Service: 05/11/20 Vital Signs Temp Pulse Resp BP Pulse Ox 97.4 F 70 18 129/60 100 05/11/20 20:00 05/11/20 21:41 05/11/20 20:00 05/11/20 21:41 05/11/20 20:00 Medications Acetaminophen (Tylenol -Extra Strength) 500 mg PO Q4HP PRN PRN Reason: Pain/fever Stop: 06/02/20 12:45 Last Admin: 05/09/20 10:43 Dose: 500 mg Documented by: Hydrocodone Bitart/Acetaminophen (Hydrocodone/Apap 5/325 Mg Tab) 1 tab PO TIDP PRN PRN Reason: Pain scale 5-7 (Moderate) Stop: 06/10/20 12:22 Last Admin: 05/11/20 15:00 Dose: 1 tab Documented by: Amlodipine Besylate (Norvasc) [address] [facility] Stop: 06/05/20 09:01 Last Admin: 05/11/20 09:01 Dose: 10 mg Documented by: Aspirin (Aspirin Chewable) 81 mg PO BEDTIME [facility] Stop: 06/04/20 21:01 Last Admin: 05/11/20 21:41 Dose: 81 mg Documented by: Bisacodyl (Bisacodyl 10 Mg Rectal Supp) 10 mg SC DAILY PRN PRN Reason: CONSTIPATION Stop: 06/08/20 15:08 Calcitriol (Calcitrol 0.25 Mcg Cap) 0.[address] [facility] Stop: 06/09/20 09:01 Last Admin: 05/11/20 09:00 Dose: 0.5 mcg Documented by: Carvedilol (Coreg) 3.125 mg PO BID [facility] Stop: 06/04/20 21:01 Last Admin: 05/11/20 21:41 Dose: 3.125 mg Documented by: Cholecalciferol (Vitamin D 1000 Iu Tab) 1,000 unit PO DAILY [facility] Stop: 06/05/20 09:01 Last Admin: 05/11/20 09:01 Dose: 1,000 unit Documented by: Cholestyramine Resin (Questran Light) 4 gm PO BIDWM [facility] Stop: 06/04/20 17:01 Last Admin: 05/11/20 16:43 Dose: 4 gm Documented by: Dextrose (Dextrose 50% Syringe) 12.5 gm IV PRN PRN; Protocol PRN Reason: HYPOGLYCEMIA Stop: 06/05/20 00:40 Last Admin: 05/11/20 05:10 Dose: 12.5 gm Documented by: Docusate Sodium (Colace Cap) [address] [facility] Stop: 06/06/20 21:01 Last Admin: 05/11/20 21:00 Dose: Not Given Documented by: Fluconazole (Fluconazole 100 Mg Tab) [address] [facility] Stop: 06/10/20 09:01 Last Admin: 05/11/20 09:01 Dose: 100 mg Documented by: Furosemide (Lasix) [address] [facility] Stop: 06/04/20 17:01 Last Admin: 05/11/20 16:43 Dose: 40 mg Documented by: Gabapentin (Neurontin) [address] [facility] Stop: 06/04/20 14:01 Last Admin: 05/11/20 21:41 Dose: 200 mg Documented by: Glipizide (Glucotrol) [address] [facility] Stop: 06/04/20 16:31 Last Admin: 05/11/20 16:43 Dose: 5 mg Documented by: Heparin Sodium (Porcine) (Heparin 5000 Unit/Ml 1 Ml Vial) 5,[address] [facility] Stop: 06/02/20 21:01 Last Admin: 05/11/20 21:55 Dose: 5,000 unit Documented by: Heparin Sodium (Porcine) (Heparin 1,000 Unit/Ml Vial) 6,000 unit IV EVERY HD PRN PRN Reason: AFTER EACH Stop: 06/02/20 20:41 Last Admin: 05/10/20 13:54 Dose: 6,000 unit Documented by: Hydromorphone HCl (Dilaudid) 2 mg IV Q4H PRN PRN Reason: Pain scale 8-10 (Severe) Stop: 06/07/20 02:31 Last Admin: 05/10/20 21:56 Dose: 2 mg Documented by: Albumin Human (Albumin 25%) 50 mls @ 100 mls/hr IV EVERY HD [facility] Stop: 06/02/20 21:01 Last Admin: 05/10/20 11:15 Dose: 50 mls Documented by: Meropenem 500 mg/ Sodium (Chloride) 100 mls @ 100 mls/hr IV Q12HR [facility] Stop: 06/08/20 14:01 Last Admin: 05/11/20 21:40 Dose: 100 mls Documented by: Dextrose/Sodium Chloride (Dextrose 5% O.45% Saline) 1,000 mls @ 50 mls/hr IV .Q20H [facility] Stop: 06/10/20 08:01 Last Admin: 05/11/20 08:59 Dose: 1,000 mls Documented by: Losartan Potassium (Cozaar) [address] [facility] Stop: 06/04/20 21:01 Last Admin: 05/11/20 21:40 Dose: 50 mg Documented by: Mannitol (Mannitol 12.5 Gm/50 Ml Vial) 12.5 gm IV EVERY HD PRN PRN Reason: Titrate to SBP (MUST DEFINE) Stop: 06/02/20 20:41 Last Admin: 05/10/20 12:45 Dose: 12.5 gm Documented by: Ondansetron HCl (Zofran) 4 mg IV Q6HP PRN PRN Reason: NAUSEA / VOMITING Stop: 06/02/20 12:45 Last Admin: 05/10/20 08:59 Dose: 4 mg Documented by: Sodium Chloride (Normal Saline Flush) [address] [facility] Stop: 06/02/20 21:01 Last Admin: 05/11/20 21:55 Dose: 10 ml Documented by: Tramadol HCl (Tramadol Hcl 50 Mg Tab) 50 mg PO TIDP PRN PRN Reason: Pain scale 2-4 (Mild) Stop: 06/10/20 12:22 Vitamin B Complex/Vit C/Folic Acid (Nephro-Nikole) [address] [facility] Stop: 06/04/20 21:01 Last Admin: 05/11/20 21:41 Dose: 1 tab Documented by: Microbiology Results 05/03/20 09:04 Blood - Blood Aerobic Blood Culture - Final No growth in 5 days. 05/03/20 09:04 Blood - Blood Anaerobic Blood Culture - Final No growth in 5 days. 05/03/20 08:55 Blood - Blood Aerobic Blood Culture - Final No growth in 5 days. 05/03/20 08:55 Blood - Blood Anaerobic Blood Culture - Final No growth in 5 days. 05/03/20 11:20 Clean Catch Urine Hiram Count - Final >100,000 CFU/ML. 05/03/20 11:20 Clean Catch Urine - Final 05/03/20 10:55 Nasopharnyx Influenza Type A Antigen Screen - Final 05/03/20 10:55 Nasopharnyx Influenza Type B Antigen Screen - Final Assessment/ Plan: Nephrology CPS stable without CP or SOB. No acute events overnight. Dysphasia overnight due to hypoglycemia. Vitals, medications, blood work and imaging reviewed in the chart. Physical Examination General: In no apparent distress, Oriented x3, Cooperative, Moderate distress HEENT: Atraumatic, Normocephalic Neck: Supple Respiratory: Diminished Cardiovascular: Regular rate/rhythm, Edema Gastrointestinal: Non-distended, No guarding, Tenderness Musculoskeletal: No clubbing, No contractures Integumentary: No rashes, No cyanosis Neurological: Normal speech Left AVF with thrill Laboratory Data (last 24 hrs) 05/03/20 09:17: WBC Cancelled, Hgb Cancelled, Hct Cancelled, Plt Count Cancelled 05/03/20 09:17: Sodium Cancelled, Potassium Cancelled, BUN Cancelled, Creatinine Cancelled, Glucose Cancelled, Total Bilirubin Cancelled, AST Cancelled, ALT Cancelled, Alkaline Phosphatase Cancelled, Lipase Cancelled 05/03/20 08:55: PT 13.0 H, INR 1.10, APTT 30.4 05/03/20 08:55: WBC 15.4 H, Hgb 10.4 L, Hct 32.4 L, Plt Count 255 05/03/20 08:55: Sodium 138, Potassium 4.5, BUN 38 H, Creatinine 5.07 H*, Glucose 200 H, Total Bilirubin 0.4, AST 24, ALT 35, Alkaline Phosphatase 92, Amylase 68, Lipase 230 Imagings Data: EXAM DESCRIPTION: CT - Abdomen Pelvis Wo Contrast - 05/03/2020 10:05 am CLINICAL HISTORY: Abdominal pain. RLQ pain;Abd pain COMPARISON: Abdomen Pelvis W Contrast dated 05/30/2018 TECHNIQUE: CT imaging of the abdomen and pelvis was performed without contrast. Solid organ, bowel and vascular assessment is limited due to lack of IV and oral contrast. All CT scans are performed using dose optimization technique as appropriate and may include automated exposure control or mA/KV adjustment according to patient size. FINDINGS: Mild linear subsegmental atelectasis in both lung bases.Cholecystectomy clips. The liver, spleen, pancreas, adrenal glands and left kidney are within normal limits for a limited non-contrast examination.Punctate 1-2 mm calculus is seen inferior right renal calyx without hydronephrosis appear No bowel obstruction, free air, free fluid or abscess. Thickening of the giron of the cecum noted somewhat asymmetric in nature, with right-sided lateral wall thickening up to 24 mm noted. Terminal ileum appears mildly thickened as well. Appendectomy. Midline hernia repair changes seen. Small fat containing left inguinal hernia. The osseous structures are within normal limits. IMPRESSION: Thickening of the cecal wall is noted up to 24 mm and somewhat asymmetric. Inflammatory condition such S typhlitis or other infection/inflammation the cecum is possible. The diagnosis of concern would be malignancy in the cecum and followup colonoscopy would be advised. EXAM DESCRIPTION: RAD - Chest Single View - 05/03/2020 9:32 am CLINICAL HISTORY: FEVER Chest pain. COMPARISON: Chest Single View dated 06/07/2018; Chest Single View dated 06/02/2018; Abdomen 1 View (KUB) dated 06/01/2018; Chest Pa And Lat (2 Views) dated 05/31/2018 FINDINGS: Portable technique limits examination quality. Mild interstitial pulmonary edema. The heart is upper limit of normal in size. Left-sided venous catheter has tip in the right atrium. IMPRESSION: Mild CHF versus volume overload pattern. Conclusions/Impression: A/ ESRD on HD HTN with CKD/ CHF Diastolic CHF, chronic DM II with CKD Anemia in CKD ÁNGEL/ Secondary HyperPTH Acute typhlitis with abdominal pain. Acute cystitis P/ Continue current POC and Medications. Next HD on Friday. Maintain BG level. Continue abx and steroids. Pain control as ordered. Continue antifungal for cystitis. Follow up with surgery. No NSAIDs. AM labs. Daily weight.
[2020-05-12] MEDS: D5 0.45 NS 1,000 ML IV SCH (04:00)
[2020-05-12] MEDS: glipiZIDE 5 MG TAB PO SCH (07:30)
--- NOTE | 2020-05-12 07:45 | P.PN ---
Subjective Date of Service: 05/12/20 Chief Complaint: RLQ abdominal pain, inflame cecum, sepsis with WBC 17k Subjective: Other (Patient reports improvement. She did have a bowel movement yesterday. Passage of gas noted.) Physical Examination - Vital Signs Temperature: 97.8 F Blood Pressure: 114/56 Pulse: 59 Respirations: 19 Pulse Ox (%): 100 - Physical Exam General: Alert, In no apparent distress, Oriented x3, Cooperative HEENT: Atraumatic Neck: Supple Respiratory: Clear to auscultation bilaterally, Normal air movement Cardiovascular: Normal pulses, Regular rate/rhythm Gastrointestinal: Hypoactive, Non-distended, No masses, No rebound, No guarding, Tenderness (Significantly less pain to the right quadrant.) Integumentary: No erythema, No warmth, No cyanosis Neurological: Normal speech, Normal strength at 5/5 x4 extr, Normal tone, Normal affect - Studies Medications List Reviewed: Yes Assessment & Plan Discharge Plan: Other (Home verses long-term acute care facility placement) Plan to discharge in: 24 Hours Physician Review Additional Text: Impression: Metabolic encephalopathy related to hypoglycemia Right-sided abdominal pain secondary to colitis End-stage renal disease on hemodialysis Hypertension Chronic diastolic CHF Diabetes mellitus type 2 with hypoglycemia UTI-fungal Plan: Metabolic encephalopathy related to hypoglycemia: Patient back to baseline. No evidence of TIA or stroke. MRI/T's CT head unremarkable. Patient taking better intake. Will consult dietary to address daily needs. Glipizide has been discontinued. Discontinue IV fluids. Will monitor for hypoglycemia. Encourage oral intake. Patient did report some passage of gas and stool yesterday. If significantly improved will consider discharge today. If not then will need to consider long-term acute care facility placement to continue to address her colitis. Will have physical therapy occupational evaluate patient today. Case discussed with surgery yesterday. Surgery reports improvement. Case also discuss with nephrology as well. Patient in agreement if no significant improvement will consider long-term acute care facility placement to continue rehab. If the patient is able tolerate diet and ambulate will consider discharge later today. Right-sided abdominal pain secondary to colitis: Patient shows improvement at this time. Will advance diet to soft diet. Hopefully she will be able to tolerate this. Case discussed with surgery yesterday. No surgical intervention required at this time. Continue IV meropenem. Possible discharge on oral antibiotics if significantly improved. Continue with above plan of care. End-stage renal disease on hemodialysis: Continue with dialysis. Continue with Nephrology recommendations. Hypertension: Continue with medication. Will monitor adjust appropriately. Chronic diastolic CHF: Fluid restriction in place.. Diabetes mellitus type 2 with hypoglycemia: Glipizide has been discontinued. Will discontinue IV fluids. Encourage oral intake. Dietary console to address daily needs. Continue monitor for hypoglycemia. Soft diet started. Continue with above plan of care. UTI-fungal: Patient remains on Diflucan Time Spent Managing Pts Care (In Minutes): 55
[2020-05-12 08:17] LABS: Basophils % 0.8 % (0-1.3); Hematocrit 26.3 % (36.0-45.0); Lymphocytes % 14.3 % (15.3-44.8); MPV 7.5 fL (7.6-11.3)
[2020-05-12 08:32] LABS: Magnesium 2.2 mg/dL (1.8-2.4); Potassium 4.4 mmol/L (3.5-5.1)
[2020-05-12] MEDS: carvediloL 3.125 MG TAB PO SCH ×2 (09:00→21:26)
[2020-05-12] MEDS: HEPARIN 5000 UNIT/ML 1 ML VIAL SQ SCH ×2 (09:00→21:26)
[2020-05-12] MEDS: AMLODIPINE 10 MG TAB PO SCH (09:00)
[2020-05-12] MEDS: VITAMIN D 1000 UNIT TAB PO SCH (09:00)
[2020-05-12] MEDS: LOSARTAN POTASSIUM 50 MG TABLET PO SCH ×2 (09:00→21:25)
[2020-05-12] MEDS: Meropenem 500 MG in NA CHLORIDE 0.9% 100 ML IV SCH ×2 (09:02→21:24)
[2020-05-12] MEDS: FUROSEMIDE 40 MG TABLET PO SCH ×2 (09:05→16:36)
[2020-05-12] MEDS: CALCITROL 0.25 MCG CAP PO SCH (09:08)
[2020-05-12] MEDS: DOCUSATE NA 100 MG CAP PO SCH ×2 (09:08→21:26)
[2020-05-12] MEDS: GABAPENTIN 100 MG CAP PO SCH ×3 (09:08→21:25)
[2020-05-12] MEDS: FLUCONAZOLE 100 MG TAB PO SCH (09:09)
[2020-05-12] MEDS: CHOLESTYRAMINE/ASP 4 GM/PKT PO SCH ×2 (09:10→16:37)
[2020-05-12] MEDS ORDERED: ENSURE HIGH PROTEIN 237 ML CAN PO PRN (10:16)
[2020-05-12] MEDS: ALBUMIN HUMAN 25% 50 ML IV SCH (12:30)
--- NOTE | 2020-05-12 20:49 | P.PN ---
Date of Service: 05/12/20 Vital Signs Temp Pulse Resp BP Pulse Ox 97.8 F 73 20 130/59 L 96 05/12/20 16:00 05/12/20 16:36 05/12/20 16:00 05/12/20 16:36 05/12/20 16:00 Medications Acetaminophen (Tylenol -Extra Strength) 500 mg PO Q4HP PRN PRN Reason: Pain/fever Stop: 06/02/20 12:45 Last Admin: 05/09/20 10:43 Dose: 500 mg Documented by: Hydrocodone Bitart/Acetaminophen (Hydrocodone/Apap 5/325 Mg Tab) 1 tab PO TIDP PRN PRN Reason: Pain scale 5-7 (Moderate) Stop: 06/10/20 12:22 Last Admin: 05/11/20 15:00 Dose: 1 tab Documented by: Amlodipine Besylate (Norvasc) 10 mg PO DAILY [facility] Stop: 06/05/20 09:01 Last Admin: 05/12/20 09:00 Dose: Not Given Documented by: Aspirin (Aspirin Chewable) 81 mg PO BEDTIME SHIMA Stop: 06/04/20 21:01 Last Admin: 05/11/20 21:41 Dose: 81 mg Documented by: Bisacodyl (Bisacodyl 10 Mg Rectal Supp) 10 mg HI DAILY PRN PRN Reason: CONSTIPATION Stop: 06/08/20 15:08 Calcitriol (Calcitrol 0.25 Mcg Cap) 0.5 mcg PO DAILY [facility] Stop: 06/09/20 09:01 Last Admin: 05/12/20 09:08 Dose: 0.5 mcg Documented by: Carvedilol (Coreg) 3.125 mg PO BID [facility] Stop: 06/04/20 21:01 Last Admin: 05/12/20 09:00 Dose: Not Given Documented by: Cholecalciferol (Vitamin D 1000 Iu Tab) 1,000 unit PO DAILY [facility] Stop: 06/05/20 09:01 Last Admin: 05/12/20 09:00 Dose: 1,000 unit Documented by: Cholestyramine Resin (Questran Light) 4 gm PO BIDWM SHIMA Stop: 06/04/20 17:01 Last Admin: 05/12/20 16:37 Dose: 4 gm Documented by: Dextrose (Dextrose 50% Syringe) 12.5 gm IV PRN PRN; Protocol PRN Reason: HYPOGLYCEMIA Stop: 06/05/20 00:40 Last Admin: 05/11/20 05:10 Dose: 12.5 gm Documented by: Docusate Sodium (Colace Cap) 100 mg PO BID [facility] Stop: 06/06/20 21:01 Last Admin: 05/12/20 09:08 Dose: 100 mg Documented by: Fluconazole (Fluconazole 100 Mg Tab) 100 mg PO DAILY [facility] Stop: 06/10/20 09:01 Last Admin: 05/12/20 09:09 Dose: 100 mg Documented by: Furosemide (Lasix) 40 mg PO BIDL [facility] Stop: 06/04/20 17:01 Last Admin: 05/12/20 16:36 Dose: 40 mg Documented by: Gabapentin (Neurontin) 200 mg PO TID [facility] Stop: 06/04/20 14:01 Last Admin: 05/12/20 16:37 Dose: 200 mg Documented by: Heparin Sodium (Porcine) (Heparin 5000 Unit/Ml 1 Ml Vial) 5,000 unit SQ Q12HR [facility] Stop: 06/02/20 21:01 Last Admin: 05/12/20 09:00 Dose: 5,000 unit Documented by: Heparin Sodium (Porcine) (Heparin 1,000 Unit/Ml Vial) 6,000 unit IV EVERY HD PRN PRN Reason: AFTER EACH Stop: 06/02/20 20:41 Last Admin: 05/12/20 15:25 Dose: 6,000 unit Documented by: Albumin Human (Albumin 25%) 50 mls @ 100 mls/hr IV EVERY HD [facility] Stop: 06/02/20 21:01 Last Admin: 05/12/20 12:30 Dose: 50 mls Documented by: Meropenem 500 mg/ Sodium (Chloride) 100 mls @ 100 mls/hr IV Q12HR [facility] Stop: 06/08/20 14:01 Last Admin: 05/12/20 09:02 Dose: 100 mls Documented by: Losartan Potassium (Cozaar) 50 mg PO BID [facility] Stop: 06/04/20 21:01 Last Admin: 05/12/20 09:00 Dose: Not Given Documented by: Mannitol (Mannitol 12.5 Gm/50 Ml Vial) 12.5 gm IV EVERY HD PRN PRN Reason: Titrate to SBP (MUST DEFINE) Stop: 06/02/20 20:41 Last Admin: 05/10/20 12:45 Dose: 12.5 gm Documented by: Nutritional Formula (Ensure High Protein 237 Ml Can) 237 ml PO DAILY PRN PRN Reason: If PO intake < 50% Stop: 06/12/20 09:01 Ondansetron HCl (Zofran) 4 mg IV Q6HP PRN PRN Reason: NAUSEA / VOMITING Stop: 06/02/20 12:45 Last Admin: 05/10/20 08:59 Dose: 4 mg Documented by: Sodium Chloride (Normal Saline Flush) 10 ml IV BID [facility] Stop: 06/02/20 21:01 Last Admin: 05/12/20 09:09 Dose: 10 ml Documented by: Tramadol HCl (Tramadol Hcl 50 Mg Tab) 50 mg PO TIDP PRN PRN Reason: Pain scale 2-4 (Mild) Stop: 06/10/20 12:22 Vitamin B Complex/Vit C/Folic Acid (Nephro-Nikole) 1 tab PO BEDTIME [facility] Stop: 06/04/20 21:01 Last Admin: 05/11/20 21:41 Dose: 1 tab Documented by: Microbiology Results 05/03/20 09:04 Blood - Blood Aerobic Blood Culture - Final No growth in 5 days. 05/03/20 09:04 Blood - Blood Anaerobic Blood Culture - Final No growth in 5 days. 05/03/20 08:55 Blood - Blood Aerobic Blood Culture - Final No growth in 5 days. 05/03/20 08:55 Blood - Blood Anaerobic Blood Culture - Final No growth in 5 days. 05/03/20 11:20 Clean Catch Urine [place] Count - Final >100,000 CFU/ML. 05/03/20 11:20 Clean Catch Urine - Final 05/03/20 10:55 Nasopharnyx Influenza Type A Antigen Screen - Final 05/03/20 10:55 Nasopharnyx Influenza Type B Antigen Screen - Final Assessment/ Plan: Nephrology CPS stable without CP or SOB. No acute events overnight. Feeling better today compared to yesterday. +Anxiety Vitals, medications, blood work and imaging reviewed in the chart. Physical Examination General: In no apparent distress, Oriented x3, Cooperative, Moderate distress HEENT: Atraumatic, Normocephalic Neck: Supple Respiratory: Diminished Cardiovascular: Regular rate/rhythm, Edema Gastrointestinal: Non-distended, No guarding, Tenderness Musculoskeletal: No clubbing, No contractures Integumentary: No rashes, No cyanosis Neurological: Normal speech Left AVF with thrill Laboratory Data (last 24 hrs) 05/03/20 09:17: WBC Cancelled, Hgb Cancelled, Hct Cancelled, Plt Count Cancelled 05/03/20 09:17: Sodium Cancelled, Potassium Cancelled, BUN Cancelled, Creatinine Cancelled, Glucose Cancelled, Total Bilirubin Cancelled, AST Cancelled, ALT Cancelled, Alkaline Phosphatase Cancelled, Lipase Cancelled 05/03/20 08:55: PT 13.0 H, INR 1.10, APTT 30.4 05/03/20 08:55: WBC 15.4 H, Hgb 10.4 L, Hct 32.4 L, Plt Count 255 05/03/20 08:55: Sodium 138, Potassium 4.5, BUN 38 H, Creatinine 5.07 H*, Glucose 200 H, Total Bilirubin 0.4, AST 24, ALT 35, Alkaline Phosphatase 92, Amylase 68, Lipase 230 Imagings Data: EXAM DESCRIPTION: CT - Abdomen Pelvis Wo Contrast - 05/03/2020 10:05 am CLINICAL HISTORY: Abdominal pain. RLQ pain;Abd pain COMPARISON: Abdomen Pelvis W Contrast dated 05/30/2018 TECHNIQUE: CT imaging of the abdomen and pelvis was performed without contrast. Solid organ, bowel and vascular assessment is limited due to lack of IV and oral contrast. All CT scans are performed using dose optimization technique as appropriate and may include automated exposure control or mA/KV adjustment according to patient size. FINDINGS: Mild linear subsegmental atelectasis in both lung bases. Cholecystectomy clips. The liver, spleen, pancreas, adrenal glands and left kidney are within normal limits for a limited non-contrast examination.Punctate 1-2 mm calculus is seen inferior right renal calyx without hydronephrosis appear No bowel obstruction, free air, free fluid or abscess. Thickening of the giron of the cecum noted somewhat asymmetric in nature, with right-sided lateral wall thickening up to 24 mm noted. Terminal ileum appears mildly thickened as well. Appendectomy. Midline hernia repair changes seen. Small fat containing left inguinal hernia. The osseous structures are within normal limits. IMPRESSION: Thickening of the cecal wall is noted up to 24 mm and somewhat asymmetric. Inflammatory condition such S typhlitis or other infection/inflammation the cecum is possible. The diagnosis of concern would be malignancy in the cecum and followup colonoscopy would be advised. EXAM DESCRIPTION: RAD - Chest Single View - 05/03/2020 9:32 am CLINICAL HISTORY: FEVER Chest pain. COMPARISON: Chest Single View dated 06/07/2018; Chest Single View dated 06/02/2018; Abdomen 1 View (KUB) dated 06/01/2018; Chest Pa And Lat (2 Views) dated 05/31/2018 FINDINGS: Portable technique limits examination quality. Mild interstitial pulmonary edema. The heart is upper limit of normal in size. Left-sided venous catheter has tip in the right atrium. IMPRESSION: Mild CHF versus volume overload pattern. Conclusions/Impression: A/ ESRD on HD HTN with CKD/ CHF Diastolic CHF, chronic DM II with CKD Anemia in CKD ÁNGEL/ Secondary HyperPTH Acute typhlitis with abdominal pain. Acute cystitis P/ Continue current POC and Medications. HD today as ordered. Monitor BG closely. Continue abx and steroids. Pain control as ordered. Continue antifungal for cystitis. Follow up with surgery. No NSAIDs. AM labs. Daily weight.
[2020-05-12] MEDS: MULTIVITAMINS,THERAPEUT 1 TAB PO SCH (21:25)
[2020-05-12] MEDS: ASPIRIN 81 MG CHEWABLE TABLET PO SCH (21:25)
[2020-05-13 02:53] VITALS: O2SAT 100
[2020-05-13] MEDS: Meropenem 500 MG in NA CHLORIDE 0.9% 100 ML IV SCH (08:55)
[2020-05-13] MEDS: carvediloL 3.125 MG TAB PO SCH (08:56)
[2020-05-13] MEDS: CALCITROL 0.25 MCG CAP PO SCH (08:58)
[2020-05-13] MEDS: GABAPENTIN 100 MG CAP PO SCH (08:59)
[2020-05-13] MEDS: AMLODIPINE 10 MG TAB PO SCH (08:59)
[2020-05-13] MEDS: FUROSEMIDE 40 MG TABLET PO SCH (08:59)
[2020-05-13] MEDS: FLUCONAZOLE 100 MG TAB PO SCH (09:00)
[2020-05-13] MEDS: VITAMIN D 1000 UNIT TAB PO SCH (09:00)
[2020-05-13] MEDS: DOCUSATE NA 100 MG CAP PO SCH (09:00)
[2020-05-13] MEDS: LOSARTAN POTASSIUM 50 MG TABLET PO SCH (09:00)
[2020-05-13] MEDS: HEPARIN 5000 UNIT/ML 1 ML VIAL SQ SCH (09:01)
[2020-05-13] MEDS: CHOLESTYRAMINE/ASP 4 GM/PKT PO SCH (09:01)
--- NOTE | 2020-05-13 10:50 | P.DS ---
Admission Date: 05/03/20 Discharge Date: 05/13/20 Primary Care Provider: none; Nephrology-Dr. Retana Disposition: DC HOME/HOME HEALTH CARE Discharge Condition: GOOD Reason for Admission: Right lower quadrant abdominal pain Consultations: Surgery-Dr. Pace GI-Dr. Dixon Nephrology-Dr. Retana Procedures: COVID19: Negative CT Scan: FINDINGS: Mild linear subsegmental atelectasis in both lung bases.Cholecystectomy clips. The liver, spleen, pancreas, adrenal glands and left kidney are within normal limits for a limited non-contrast examination.Punctate 1-2 mm calculus is seen inferior right renal calyx without hydronephrosis appear No bowel obstruction, free air, free fluid or abscess. Thickening of the giron of the cecum noted somewhat asymmetric in nature, with right-sided lateral wall thickening up to 24 mm noted. Terminal ileum appears mildly thickened as well. Appendectomy. Midline hernia repair changes seen. Small fat containing left inguinal hernia. The osseous structures are within normal limits. IMPRESSION: Thickening of the cecal wall is noted up to 24 mm and somewhat asymmetric. Inflammatory condition such S typhlitis or other infection/inflammation the cecum is possible. The diagnosis of concern would be malignancy in the cecum and followup colonoscopy would be advised. A limited non-contrast examination was performed as detailed. Follow up CT Scan: FINDINGS: The liver, spleen, pancreas, adrenal and right kidney appear unremarkable. A 2 millimeter nonobstructing right renal calculus There is no evidence of diverticulitis. Mild thickening of the wall of cecum. Postsurgical changes of a ventral hernia repair. Diffuse edema within the subcutaneous tissues IMPRESSION: Mild thickening of cecal wall may indicate inflammation or mass CT Head with contrast: COMPARISON: Head CT performed earlier the same day. FINDINGS: LEFT: INTERNAL CAROTID ARTERY: The distal internal carotid artery is unremarkable. There are mild atherosclerotic calcifications along the cavernous left ICA. ANTERIOR CEREBRAL ARTERY: he A1 segment is normal in caliber and contour. The A2 segment is normal in caliber and contour. The region of the anterior communicating artery is unremarkable. MIDDLE CEREBRAL ARTERY: The M1 segment is normal in caliber and contour. The M2 branches normal in caliber and contour. POSTERIOR CEREBRAL ARTERY: he P1 segment is normal in caliber and contour. The P2 segment is normal in caliber and contour. The left posterior communicating artery is patent. VERTEBRAL ARTERY: The intradural left vertebral artery is normal in caliber and contour. RIGHT: INTERNAL CAROTID ARTERY: The distal internal carotid artery is unremarkable. There are mild atherosclerotic calcifications along the cavernous right ICA. ANTERIOR CEREBRAL ARTERY: The A1 segment is normal in caliber and contour. The A2 segment is normal in caliber and contour. MIDDLE CEREBRAL ARTERY: he M1 segment is normal in caliber and contour. The M2 branches normal in caliber and contour. POSTERIOR CEREBRAL ARTERY: The P1 segment is normal in caliber and contour. The P2 segment is normal in caliber and contour. The right posterior communicating artery is hypoplastic or aplastic. VERTEBRAL ARTERY: The intradural right vertebral artery is markedly diminutive in caliber. BASILAR ARTERY: The basilar artery is normal in caliber and contour. DURAL VENOUS SINUSES: The dural venous sinuses are patent. NON-ANGIOGRAPHIC FINDINGS: There is mild mucosal thickening of the paranasal sinuses. The orbital contents are unremarkable. The mastoid air cells are grossly clear. IMPRESSION: 1. Essentially normal intracranial CTA. There is no evidence of intracranial large vessel occlusion or significant stenosis. No definite vascular anomaly is identified. 2. The intradural right vertebral artery is markedly diminutive in caliber and could possibly terminates in a posterior inferior cerebellar artery, a developmental variant. 3. Mild mucosal thickening of the paranasal sinuses. CT Scan without contrast Brain: FINDINGS: Brain: There is no evidence of mass, acute mass effect or midline shift. There are no acute extra-axial fluid collections. There is no evidence of acute intracranial hemorrhage. The cerebral sulci and ventricles are prominent consistent with age-related volume loss..There are scattered areas of decreased attenuation within the subcortical and periventricular white matter most likely due to mild chronic microangiopathy. There is no evidence of a hyperdense MCA. There may be an old lacunar infarct in the left basal ganglia. There is a questionable subtle area of decreased attenuation in the posterior left temporal lobe (series 201, image 22, series 202, image 44 and series 203, image 56). Acute or chronic ischemic changes are not excluded. Paranasal Sinuses and Mastoids: There is mild mucosal thickening of the left maxillary sinus. The mastoid air cells are grossly clear. Orbits: The orbital contents are grossly unremarkable. Bones: No acute osseous abnormalities are identified. Soft Tissues: No focal soft tissue abnormalities are identified. IMPRESSION: 1. Questionable acute versus chronic ischemic changes involving the posterior left temporal lobe as described above. 2. Mild age-related cerebral atrophy with findings compatible with mild chronic microangiopathy and probable old lacunar infarct in the left basal ganglia. 3. Otherwise, unremarkable unenhanced head CT. MRI Brain: FINDINGS: No intracranial hemorrhage, hydrocephalus or extra-axial fluid collections.Mild T2 and FLAIR hyperintensity in the periventricular and deep white matter is noted. No edema or shift of midline structures. No findings to suspect brain mass. DWI is negative for acute CVA. Midline structures are normally formed. Small polyp or mucous retention cyst in the inferior left maxillary antrum. Trace fluid in both mastoid air cells. IMPRESSION: No evidence of acute CVA or other acute intracranial process. Impression: Metabolic encephalopathy related to hypoglycemia Right-sided abdominal pain secondary to colitis to cecal area End-stage renal disease on hemodialysis Hypertension Chronic diastolic CHF Diabetes mellitus type 2 with hypoglycemia UTI-fungal Brief History of Present Illness: 65-year-old female with history of end-stage renal disease on hemodialysis, hy pertension, chronic diastolic CHF, and diabetes. Patient presented with right lower quadrant abdominal pain. Patient found to have colitis to the cecum. Patient admitted for further evaluation and treatment. Hospital Course: Patient presented with right-sided abdominal pain secondary to colitis to the cecum. During the course of her stay patient received IV antibiotic therapy. Patient was seen and evaluated by surgery and GI. Repeat CT scan revealed no significant changes. Her diet was slowly advanced. No surgical intervention was required. At discharge she is able the tolerate a soft diet. No need for antibiotic therapy at discharge. At discharge she will continue with Questran 4 g b.i.d. and docusate 100 mg daily. At discharge patient will follow up with GI in 4-6 weeks to follow up this hospitalization. Patient will need a colonoscopy around that time to further address. Patient desires home health at discharge. Patient may follow up with her PCP to obtain home health with physical therapy. Fall precautions in place. Patient developed metabolic encephalopathy related to hypoglycemia add in the course of her stay. CT head unremarkable. MRI showed no acute stroke. Her hypoglycemia has resolved. Glipizide was discontinued. At discharge blood sugars well controlled without medication. Patient with underlying diabetes mellitus type 2. Will recommend to discontinue glipizide at discharge. Continue with diet controlled diet. Recommend to monitor blood sugars at least twice daily. Recommend to maintain blood sugar less than 140 fasting and less than 200 after meals. If the blood sugars remain above 200 consistently then patient may need to restart her glipizide but at a lower dose once daily. Hypoglycemia education provided. Patient with end-stage renal disease on hemodialysis. Nephrology was consulted. During the course of her stay patient continued with her dialysis. At discharge she will continue with her dialysis medications. Patient with hypertension. This is remained stable. At discharge she will continue with Norvasc 10 mg daily, carvedilol 3.125 mg 1 pill twice daily and losartan 50 mg 1 pill twice daily. Recommend to maintain blood pressure less than 150/80. Further adjustment can be done by her PCP. Patient with chronic diastolic CHF. This has remained stable. At discharge she will continue with Lasix 40 mg 1 pill twice daily. Patient will continue with a 1500 cc per day fluid restriction and low-salt diet. Patient with diabetic neuropathy. At discharge she will continue with Neurontin as directed. Patient may continue with her other home medications including aspirin, vitamin- D 3 and Dialyvite. Patient was evaluated for home oxygen. She did not qualify. Room-air saturations within normal range. Vital Signs/Physical Exam: Temp Pulse Resp BP Pulse Ox 97.9 F 73 18 130/55 L 100 05/13/20 08:00 05/13/20 08:56 05/13/20 08:00 05/13/20 08:56 05/13/20 08:00 General: Alert, In no apparent distress, Oriented x3, Cooperative HEENT: Atraumatic Neck: Supple Respiratory: Clear to auscultation bilaterally, Normal air movement Cardiovascular: Normal pulses, Regular rate/rhythm Gastrointestinal: Normal bowel sounds, Soft and benign, Non-distended, No masses, No rebound, No guarding, Tenderness (Minimal pain to the right lower quadrant) Musculoskeletal: No erythema, No tenderness, No warmth Integumentary: No tenderness/swelling, No erythema, No warmth, No cyanosis Neurological: Normal speech, Normal strength at 5/5 x4 extr, Normal tone, Normal affect Laboratory Data at Discharge: WBC 6.9 K/uL (4.3-10.9) D 05/12/20 08:04 Hgb 9.0 g/dL (12.0-15.0) L 05/12/20 08:04 Hct 26.3 % (36.0-45.0) L 05/12/20 08:04 Plt Count 221 K/uL (152-406) 05/12/20 08:04 PT 16.0 SECONDS (9.5-12.5) H 05/04/20 05:32 INR 1.36 05/04/20 05:32 APTT 30.0 SECONDS (24.3-36.9) 05/04/20 05:32 Sodium 130 mmol/L (136-145) L 05/12/20 08:04 Potassium 4.4 mmol/L (3.5-5.1) 05/12/20 08:04 BUN 22 mg/dL (7-18) H 05/12/20 08:04 Creatinine 4.36 mg/dL (0.55-1.3) H 05/12/20 08:04 Glucose 137 mg/dL (74-106) H 05/12/20 08:04 Phosphorus 3.9 mg/dL (2.5-4.9) 05/07/20 11:19 Magnesium 2.2 mg/dL (1.8-2.4) 05/12/20 08:04 Total Bilirubin 0.3 mg/dL (0.2-1.0) 05/11/20 05:37 AST 67 U/L (15-37) H 05/11/20 05:37 ALT 37 U/L (12-78) 05/11/20 05:37 Alkaline Phosphatase 61 U/L (45-117) 05/11/20 05:37 Amylase 68 U/L (25-115) 05/03/20 08:55 Lipase Cancelled 05/03/20 09:17 Home Medications: Furosemide [Lasix] 40 mg PO BID #60 tablet 06/04/18 Amlodipine [Norvasc*] 10 mg PO DAILY 05/03/20 Aspirin Chewable [Aspirin Chewable*] 81 mg PO BEDTIME 05/03/20 Carvedilol [Coreg] 3.125 mg PO BID 05/03/20 Cholecalciferol (Vitamin D3) [Vitamin D3] 1,000 unit PO DAILY 05/03/20 Dialyvite 800 Ultra 1 tab PO BEDTIME 05/03/20 Gabapentin [Neurontin*] 200 mg PO TID 05/03/20 Losartan Potassium [Cozaar] 50 mg PO BID 05/03/20 Cholestyramine/Asp [Questran Light*] 4 gm PO BIDWM #14 packet 05/13/20 Docusate [Colace Cap*] 100 mg PO DAILY #30 cap 05/13/20 New Medications: Docusate [Colace Cap*] 100 mg PO DAILY #30 cap Cholestyramine/Asp [Questran Light*] 4 gm PO BIDWM #14 packet Patient Discharge Instructions: Follow up with PCP in 1 week. Patient presented with right-sided abdominal pain secondary to colitis to the cecum. During the course of her stay patient received IV antibiotic therapy. Patient was seen and evaluated by surgery and GI. Repeat CT scan revealed no significant changes. Her diet was slowly advanced. No surgical intervention was required. At discharge she is able the tolerate a soft diet. No need for antibiotic therapy at discharge. At discharge she will continue with Questran 4 g b.i.d. and docusate 100 mg daily. At discharge patient will follow up with GI in 4-6 weeks to follow up this hospitalization. Patient will need a colonoscopy around that time to further address. Patient desires home health at discharge. Patient may follow up with her PCP to obtain home health with physical therapy. Fall precautions in place. Patient developed metabolic encephalopathy related to hypoglycemia add in the course of her stay. CT head unremarkable. MRI showed no acute stroke. Her hypoglycemia has resolved. Glipizide was discontinued. At discharge blood sugars well controlled without medication. Patient with underlying diabetes mellitus type 2. Will recommend to discontinue glipizide at discharge. Continue with diet controlled diet. Recommend to monitor blood sugars at least twice daily. Recommend to maintain blood sugar less than 140 fasting and less than 200 after meals. If the blood sugars remain above 200 consistently then patient may need to restart her glipizide but at a lower dose once daily. Hypoglycemia education provided. Patient with end-stage renal disease on hemodialysis. Nephrology was consulted. During the course of her stay patient continued with her dialysis. At discharge she will continue with her dialysis medications. Patient with hypertension. This is remained stable. At discharge she will continue with Norvasc 10 mg daily, carvedilol 3.125 mg 1 pill twice daily and losartan 50 mg 1 pill twice daily. Recommend to maintain blood pressure less than 150/80. Further adjustment can be done by her PCP. Patient with chronic diastolic CHF. This has remained stable. At discharge she will continue with Lasix 40 mg 1 pill twice daily. Patient will continue with a 1500 cc per day fluid restriction and low-salt diet. Patient with diabetic neuropathy. At discharge she will continue with Neurontin as directed. Patient may continue with her other home medications including aspirin, vitamin-D 3 and Dialyvite. Patient was evaluated for home oxygen. She did not qualify. Room- air saturations within normal range. Diet: ADA Activity: Ad olesya Followup: NONE,NONE [Primary Care Provider] - Time spent managing pt's care (in minutes): 55
[2020-05-13 12:58] VITALS: BP 127/58; TEMP 98.2
--- NOTE | 2020-05-13 19:04 | P.PN ---
Date of Service: 05/13/20 Vital Signs Temp Pulse Resp BP Pulse Ox 98.2 F 73 19 127/58 L 94 05/13/20 12:00 05/13/20 12:00 05/13/20 12:00 05/13/20 12:00 05/13/20 12:00 Microbiology Results 05/03/20 09:04 Blood - Blood Aerobic Blood Culture - Final No growth in 5 days. 05/03/20 09:04 Blood - Blood Anaerobic Blood Culture - Final No growth in 5 days. 05/03/20 08:55 Blood - Blood Aerobic Blood Culture - Final No growth in 5 days. 05/03/20 08:55 Blood - Blood Anaerobic Blood Culture - Final No growth in 5 days. 05/03/20 11:20 Clean Catch Urine [place] Count - Final >100,000 CFU/ML. 05/03/20 11:20 Clean Catch Urine - Final 05/03/20 10:55 Nasopharnyx Influenza Type A Antigen Screen - Final 05/03/20 10:55 Nasopharnyx Influenza Type B Antigen Screen - Final Assessment/ Plan: Nephrology CPS stable without CP or SOB. No acute events overnight. Feeling better today and tolerating oral intake. Vitals, medications, blood work and imaging reviewed in the chart. Physical Examination General: In no apparent distress, Oriented x3, Cooperative, Moderate distress HEENT: Atraumatic, Normocephalic Neck: Supple Respiratory: Diminished Cardiovascular: Regular rate/rhythm, Edema Gastrointestinal: Non-distended, No guarding, Tenderness Musculoskeletal: No clubbing, No contractures Integumentary: No rashes, No cyanosis Neurological: Normal speech Left AVF with thrill Laboratory Data (last 24 hrs) 05/03/20 09:17: WBC Cancelled, Hgb Cancelled, Hct Cancelled, Plt Count Cancelled 05/03/20 09:17: Sodium Cancelled, Potassium Cancelled, BUN Cancelled, Creatinine Cancelled, Glucose Cancelled, Total Bilirubin Cancelled, AST Cancelled, ALT Cancelled, Alkaline Phosphatase Cancelled, Lipase Cancelled 05/03/20 08:55: PT 13.0 H, INR 1.10, APTT 30.4 05/03/20 08:55: WBC 15.4 H, Hgb 10.4 L, Hct 32.4 L, Plt Count 255 05/03/20 08:55: Sodium 138, Potassium 4.5, BUN 38 H, Creatinine 5.07 H*, Glucose 200 H, Total Bilirubin 0.4, AST 24, ALT 35, Alkaline Phosphatase 92, Amylase 68, Lipase 230 Imagings Data: EXAM DESCRIPTION: CT - Abdomen Pelvis Wo Contrast - 05/03/2020 10:05 am CLINICAL HISTORY: Abdominal pain. RLQ pain;Abd pain COMPARISON: Abdomen Pelvis W Contrast dated 05/30/2018 TECHNIQUE: CT imaging of the abdomen and pelvis was performed without contrast. Solid organ, bowel and vascular assessment is limited due to lack of IV and oral contrast. All CT scans are performed using dose optimization technique as appropriate and may include automated exposure control or mA/KV adjustment according to patient size. FINDINGS: Mild linear subsegmental atelectasis in both lung bases.Cholecystectomy clips. The liver, spleen, pancreas, adrenal glands and left kidney are within normal limits for a limited non-contrast examination.Punctate 1-2 mm calculus is seen inferior right renal calyx without hydronephrosis appear No bowel obstruction, free air, free fluid or abscess. Thickening of the giron of the cecum noted somewhat asymmetric in nature, with right-sided lateral wall thickening up to 24 mm noted. Terminal ileum appears mildly thickened as well. Appendectomy. Midline hernia repair changes seen. Small fat containing left inguinal hernia. The osseous structures are within normal limits. IMPRESSION: Thickening of the cecal wall is noted up to 24 mm and somewhat asymmetric. Inflammatory condition such S typhlitis or other infection/inflammation the cecum is possible. The diagnosis of concern would be malignancy in the cecum and followup colonoscopy would be advised. EXAM DESCRIPTION: RAD - Chest Single View - 05/03/2020 9:32 am CLINICAL HISTORY: FEVER Chest pain. COMPARISON: Chest Single View dated 06/07/2018; Chest Single View dated 06/02/2018; Abdomen 1 View (KUB) dated 06/01/2018; Chest Pa And Lat (2 Views) dated 05/31/2018 FINDINGS: Portable technique limits examination quality. Mild interstitial pulmonary edema. The heart is upper limit of normal in size. Left-sided venous catheter has tip in the right atrium. IMPRESSION: Mild CHF versus volume overload pattern. Conclusions/Impression: A/ ESRD on HD HTN with CKD/ CHF Diastolic CHF, chronic DM II with CKD Anemia in CKD ÁNGEL/ Secondary HyperPTH Acute typhlitis with abdominal pain. Acute cystitis P/ Continue current POC and Medications. Next HD on Friday. Monitor BG closely. Continue abx and steroids. Pain control as ordered. Continue antifungal for cystitis. Follow up with surgery. No NSAIDs. AM labs. Daily weight. Case reviewed with Dr. Sterling. Possible discharge today.
== END 2020-05-13 12:39 | disposition home or self-care (01) | DRG 391 ==
LOC: ER 08:20 → ERHOLD 12:45 → 2ND 19:41
PROVIDERS: ADMIT Hospitalist; ATTEND Family Medicine
PROC: 5A1D70Z Performance of Urinary Filtration, Intermittent, Less than 6 Hours Per Day (ICD-10-PCS; principal; 2020-05-04)
DX: K52.89 Other specified noninfective gastroenteritis and colitis (principal); N18.6 End stage renal disease; G93.41 Metabolic encephalopathy; I13.2 Hypertensive heart and chronic kidney disease with heart failure and with stage 5 chronic kidney disease, or end stage renal disease; I50.32 Chronic diastolic (congestive) heart failure; N25.81 Secondary hyperparathyroidism of renal origin; N30.00 Acute cystitis without hematuria; E11.22 Type 2 diabetes mellitus with diabetic chronic kidney disease; E11.40 Type 2 diabetes mellitus with diabetic neuropathy, unspecified; E11.649 Type 2 diabetes mellitus with hypoglycemia without coma; I25.10 Atherosclerotic heart disease of native coronary artery without angina pectoris; N25.0 Renal osteodystrophy; D63.1 Anemia in chronic kidney disease; E78.5 Hyperlipidemia, unspecified; I25.2 Old myocardial infarction; Z88.0 Allergy status to penicillin; Z79.82 Long term (current) use of aspirin; Z79.84 Long term (current) use of oral hypoglycemic drugs; Z79.899 Other long term (current) drug therapy; Z90.49 Acquired absence of other specified parts of digestive tract; Z99.2 Dependence on renal dialysis; Z86.19 Personal history of other infectious and parasitic diseases; Z87.891 Personal history of nicotine dependence; Z20.828 Contact with and (suspected) exposure to other viral communicable diseases
CPT/HCPCS: 36415; 51702; 70450; 70496; 70551; 71045; 74019; 74176; 74177; 80048; 80053; 80076; 81003; 81015; 82150; 82550; 82553; 82947; 83605; 83690; 83735; 83880; 84100; 84145; 84484; 85025; 85610; 85652; 85730; 86140; 86317; 86705; 87040; 87086; 87088; 87340; 87804; 90935; 93005; 96365; 96375; 97116; 97161; 97530; 99285; J0692; J1170; J1335; J1450; J1644; J1720; J2150; J2310; J2405; J2930; J3010; J7030; J7050; J7799; P9047; Q9967; U0003

== ENCOUNTER 2020-07-10 16:21 | Emergency (ER) | payer OTHER ==
[2020-07-10] MEDS ORDERED: ONDANSETRON 4 MG (ODT) TAB ONE (17:17)
--- NOTE | 2020-07-10 17:20 | RAD REPORT ---
EXAM DESCRIPTION: CT - CTHCSPWOC - 07/10/2020 4:52 pm CLINICAL HISTORY: fall, head injury, dialysis patient COMPARISON: No comparisons TECHNIQUE: Axial 5 mm thick images of the head were obtained. Axial 2 mm thick images of the cervic al spine were obtained with sagittal and coronal reconstruction images generated and reviewed. All CT scans are performed using dose optimization technique as appropriate and may include automated exposure control or mA/KV adjustment according to patient size. FINDINGS: No intracranial hemorrhage, mass, edema or acute intracranial finding. No suspicion for ac melissa infarction. No extra-axial fluid collections. Mastoid air cells and paranasal sinuses are clear. No globe or orbit abnormality seen. No significant atrophy or chronic ischemic change. Cervical body height and alignment are normal. C4-5 and C5-6 disc space narrowing present. No fractur e or acute bony abnormality. Prominent degenerative change present at the dens anterior arch C1 level . Multilevel facet joint degenerative changes are present. Mild foraminal encroachment changes are no tiffany on the left at C4-5 and C5-6. Central canal detail is inherently limited. No paraspinal mass or hematoma. IMPRESSION: Negative CT head examination for acute or significant finding. Negative CT cervical spine examination for acute or significant finding. Cervical spine degenerative change present as detailed.
--- NOTE | 2020-07-10 18:07 | EDPHYS ---
Physician Documentation [facility] Name: Abby Meredith Age: 65 yrs Sex: Female : 1955 Arrival Date: 07/10/2020 Time: 16:37 Bed 5 Private MD: ED Physician Lamont Vega HPI: 07/10 16:46 This 65 yrs old Female presents to ER via EMS with complaints of Head Injury rn Without LOC-Adult. 16:46 The patient or guardian reports injury. The complaints affect the occiput and right rn posterior scalp. Onset: The symptoms/episode began/occurred just prior to arrival. Associated signs and symptoms: Loss of consciousness: This patient did not experience any loss of consciousness. Pertinent negatives: the patient has not experienced a loss of conciousness, double vision, incontinence, neck pain, seizure, vomiting. Severity of symptoms: At their worst the symptoms were mild, in the emergency department the symptoms are unchanged. The patient has not experienced similar symptoms in the past. The patient has not recently seen a physician. Reports at dialysis, completed treatment, went to sit in wheelchair, thinks it wasn't locked, fell backward and hit back of head on floor, no LOC, not on blood thinners, remembers all events, reports pain to back of head and scalp. No vomiting. No AMS. Denies other injury.. Historical: - Allergies: 16:42 PENICILLINS; hb - Home Meds: 16:42 aspirin 81 mg Oral chew 1 tab once daily [Active]; carvedilol 12.5 mg Oral tab 1 tab hb every 12 hours [Active]; gabapentin 100 mg Oral cap [Active]; glipizide 5 mg Oral tab [Active]; Lasix 40 mg Oral tab 2 times per day [Active]; losartan 50 mg Oral tab 1 tab 2 times per day [Active]; Norvasc 10 mg Oral tab 1 tab once daily [Active]; - PMHx: 16:42 CHF; Diabetes - IDDM; Dialysis; M-W-F; Hyperlipidemia; Hypertension; hb - PSHx: 16:42 Appendectomy; hb - Immunization history:: Adult Immunizations up to date. - Social history:: Smoking status: Patient denies any tobacco usage or history of. - Family history:: not pertinent. - Hospitalizations: : No recent hospitalization is reported. ROS: 16:46 Constitutional: Negative for fever, chills, and weight loss, Eyes: Negative for injury, rn pain, redness, and discharge, Neck: Negative for injury, pain, and swelling, Cardiovascular: Negative for chest pain, palpitations, and edema, Respiratory: Negative for shortness of breath, cough, wheezing, and pleuritic chest pain, Abdomen/GI: Negative for abdominal pain, nausea, vomiting, diarrhea, and constipation, Back: Negative for injury and pain, MS/Extremity: Negative for injury and deformity, Neuro: + headache, no seizure, no LOC Exam: 16:46 Constitutional: This is a well developed, well nourished patient who is awake, alert, rn and in no acute distress. Rubbing back of head. Head/Face: Normocephalic, 2 small areas on tenderness occiput and right occiput, no open wounds, no bleeding, no depression, small hematomas Eyes: Pupils equal round and reactive to light, extra-ocular motions intact. Lids and lashes normal. Conjunctiva and sclera are non-icteric and not injected. Cornea within normal limits. Periorbital areas with no swelling, redness, or edema. Neck: NO midline cervical tenderness, no anterior swelling or crepitus Cardiovascular: Regular rate and rhythm. No pulse deficits. Respiratory: No increased work of breathing, no retractions or nasal flaring. Abdomen/GI: soft, non-tender MS/ Extremity: Pulses equal, no cyanosis. Neurovascular intact. Full, normal range of motion. Equal circumference. Neuro: Awake and alert, GCS 15, oriented to person, place, time, and situation. Cranial nerves II-XII grossly intact. Motor strength 5/5 in all extremities. Sensory grossly intact Vital Signs: 16:38 BP 109 / 50; Pulse 72; Resp 16; Pulse Ox 99% on R/A; Pain 8/10; hb 17:11 BP 107 / 70; Pulse 81; Resp 17; Pulse Ox 100% on R/A; tw2 18:24 BP 128 / 86; Pulse 74; Resp 15; Pulse Ox 99% on R/A; hb Dudley Coma Score: 16:46 Eye Response: spontaneous(4). Verbal Response: oriented(5). Motor Response: obeys rn commands(6). Total: 15. 18:06 Eye Response: spontaneous(4). Verbal Response: oriented(5). Motor Response: obeys rn commands(6). Total: 15. MDM: 16:38 Patient medically screened. rn 18:06 Differential diagnosis: Contusion of Hematoma on Intracranial bleed- Concussion rn cerebral contusion. Data reviewed: vital signs, nurses notes, radiologic studies, CT scan, and as a result, I will discharge patient. Counseling: I had a detailed discussion with the patient and/or guardian regarding: the historical points, exam findings, and any diagnostic results supporting the discharge/admit diagnosis, radiology results, the need for outpatient follow up, to return to the emergency department if symptoms worsen or persist or if there are any questions or concerns that arise at home. Response to treatment: the patient's symptoms have markedly improved after treatment, and as a result, I will discharge patient. Special discussion: Based on the patient's history, exam and DX evaluation, there is no indication for emergent intervention or inpatient TX. It is understood by the patient/guardian that if the SXs persist or worsen they need to return immediately for re-evaluation. I discussed with the patient/guardian in detail that at this point there is no indication for admission to the hospital. It is understood, however, that if the symptoms persist or worsen the patient needs to return immediately for re-evaluation. ED course: CT head neg, will dc home with prn zofran for possible concussion.. 07/10 16:39 Order name: CT Head C Spine; Complete Time: 17:27 rn Administered Medications: 17:00 Drug: Zofran (Ondansetron) 4 mg Route: PO; tw2 17:43 Follow up: Response: No adverse reaction hb 18:10 Drug: [place] 5 mg-325 mg 1 tabs {Note: RASS 0.} Route: PO; tw2 18:40 Follow up: Response: No adverse reaction tw2 18:40 Follow up: Response: No adverse reaction; Pain is decreased; RASS: Alert and Calm (0) tw2 Disposition: 07/10/20 18:07 Discharged to Home. Impression: Superficial injury of head, Concussion. - Condition is Stable. - Discharge Instructions: Concussion, Adult, Head Injury, Adult, Hematoma. - Prescriptions for Zofran ODT 4 mg Oral tablet,disintegrating - place 1 tablet by TRANSLINGUAL route every 8 hours As needed; 20 tablet. - Medication Reconciliation Form, Thank You Letter, Antibiotic Education, Prescription Opioid Use form. - Follow up: Private Physician; When: As needed; Reason: Recheck today's complaints, Re-evaluation by your physician. - Problem is new. - Symptoms have improved. Signatures: Dispatcher [employer] EDMS Lamont Vega MD MD rn Baxter, Heather, RN RN Kenia Forman RN RN tw2 Corrections: (The following items were deleted from the chart) 18:44 18:07 07/10/2020 18:07 Discharged to Home. Impression: Superficial injury of head; tw2 Concussion. Condition is Stable. Forms are Medication Reconciliation Form, Thank You Letter, Antibiotic Education, Prescription Opioid Use. Follow up: Private Physician; When: As needed; Reason: Recheck today's complaints, Re-evaluation by your physician. Problem is new. Symptoms have improved. rn
--- NOTE | 2020-07-10 18:07 | ER ---
Nurse's Notes [facility] Name: Abby Meredith Age: 65 yrs Sex: Female : 1955 Arrival Date: 07/10/2020 Time: 16:37 Bed 5 Private MD: Diagnosis: Superficial injury of head;Concussion Presentation: 07/10 16:38 Chief complaint: EMS states: Was transferring from bed to wheelchair after HD and the hb chair moved out from under her, struck back of head on concrete floor. NEGATIVE LOC. Coronavirus screen: At this time, the client does not indicate any symptoms associated with coronavirus-19. Ebola Screen: No symptoms or risks identified at this time. 16:38 Method Of Arrival: EMS: [facility] 16:38 Initial Sepsis Screen: Does the patient meet any 2 criteria? No. Patient's initial hb sepsis screen is negative. Does the patient have a suspected source of infection? No. Patient's initial sepsis screen is negative. Risk Assessment: Do you want to hurt yourself or someone else? Patient reports no desire to harm self or others. Onset of symptoms was July 10, 2020. 16:38 Acuity: TOMASA 3 hb Triage Assessment: 16:42 General: Appears in no apparent distress. Behavior is calm, cooperative. Pain: Pain hb currently is 8 out of 10 on a pain scale. EENT: No signs and/or symptoms were reported regarding the EENT system. Neuro: Level of Consciousness is awake, alert, obeys commands, Oriented to person, place, time, situation, Reports headache. Cardiovascular: Capillary refill < 3 seconds Patient's skin is warm and dry. Respiratory: Respiratory effort is even, unlabored, Respiratory pattern is regular, symmetrical. GI: No signs and/or symptoms were reported involving the gastrointestinal system. : No signs and/or symptoms were reported regarding the genitourinary system. Derm: Skin is pink, warm \T\ dry. Musculoskeletal: No signs and/or symptoms reported regarding the musculoskeletal system. Historical: - Allergies: 16:42 PENICILLINS; hb - Home Meds: 16:42 aspirin 81 mg Oral chew 1 tab once daily [Active]; carvedilol 12.5 mg Oral tab 1 tab hb every 12 hours [Active]; gabapentin 100 mg Oral cap [Active]; glipizide 5 mg Oral tab [Active]; Lasix 40 mg Oral tab 2 times per day [Active]; losartan 50 mg Oral tab 1 tab 2 times per day [Active]; Norvasc 10 mg Oral tab 1 tab once daily [Active]; - PMHx: 16:42 CHF; Diabetes - IDDM; Dialysis; M-W-F; Hyperlipidemia; Hypertension; hb - PSHx: 16:42 Appendectomy; hb - Immunization history:: Adult Immunizations up to date. - Social history:: Smoking status: Patient denies any tobacco usage or history of. - Family history:: not pertinent. - Hospitalizations: : No recent hospitalization is reported. Screenin:43 Abuse screen: Denies threats or abuse. Denies injuries from another. Nutritional hb screening: No deficits noted. Tuberculosis screening: No symptoms or risk factors identified. Fall Risk None identified. Assessment: 16:43 General: see triage assessment. hb 17:00 GI: Pt is actively vomiting bile, provider notified and medicated as ordered. tw2 18:24 Reassessment: Patient appears in no apparent distress at this time. Discharge ordered. hb Awaiting transportation at this time. 18:44 Reassessment: Patient appears in no apparent distress at this time. Patient and/or tw2 family updated on plan of care and expected duration. Pain level reassessed. Patient is alert, oriented x 3, equal unlabored respirations, skin warm/dry/pink. Vital Signs: 16:38 BP 109 / 50; Pulse 72; Resp 16; Pulse Ox 99% on R/A; Pain 8/10; hb 17:11 BP 107 / 70; Pulse 81; Resp 17; Pulse Ox 100% on R/A; tw2 18:24 BP 128 / 86; Pulse 74; Resp 15; Pulse Ox 99% on R/A; hb [place] Coma Score: 16:46 Eye Response: spontaneous(4). Verbal Response: oriented(5). Motor Response: obeys rn commands(6). Total: 15. 18:06 Eye Response: spontaneous(4). Verbal Response: oriented(5). Motor Response: obeys rn commands(6). Total: 15. ED Course: 16:37 Patient arrived in ED. hb 16:38 Jennifer Morejon RN is Primary Nurse. hb 16:38 Lamont Vega MD is Attending Physician. rn 16:41 Triage completed. hb 16:42 Arm band placed on. hb 16:43 Patient has correct armband on for positive identification. Bed in low position. Call light in reach. Side rails up X 1. 16:52 CT Head C Spine In Process Unspecified. EDMS 18:27 Awaiting transportation. tw2 18:44 No provider procedures requiring assistance completed. Patient did not have IV access tw2 during this emergency room visit. Administered Medications: 17:00 Drug: Zofran (Ondansetron) 4 mg Route: PO; tw2 17:43 Follow up: Response: No adverse reaction hb 18:10 Drug: [place] 5 mg-325 mg 1 tabs {Note: RASS 0.} Route: PO; tw2 18:40 Follow up: Response: No adverse reaction tw2 18:40 Follow up: Response: No adverse reaction; Pain is decreased; RASS: Alert and Calm (0) tw2 Outcome: 18:07 Discharge ordered by MD. rn 18:44 Discharged to home via wheelchair. tw2 18:44 Condition: stable 18:44 Discharge instructions given to patient, Instructed on discharge instructions, follow up and referral plans. medication usage, Demonstrated understanding of instructions, follow-up care, medications, Prescriptions given X 1. 18:44 Patient left the ED. tw2 Signatures: Dispatcher [employer] Lamont De Leon MD MD rn Baxter, Heather, RN RN hb Wise, Tara RN RN tw2
[2020-07-10] MEDS ORDERED: HYDROCODONE/APAP 5/325 MG TAB ONE (18:25)
[2020-07-10 19:10] VITALS: BP 128/86; O2SAT 99
--- OUTSIDE RECORDS SUMMARY | 2020-07-12 02:10 | XMS REPORT | Continuity of Care Document ---
:1955 Author Organization [facility] t Address [address] [place] [place] [address] Care Team Providers Name Role Phone Doctor [...] ID 2020-03-07 2020-03-07 Orders Doctor VINICIO [id number] 00:00:00 00:00:00 Only UnassignedALLY [id number] [place] [facility] [id number] 2020-02-10 2020-02-10 Transition Kath Girard [id number] 00:00:00 00:00:00 of Care Zahida Michele [id number] [place] [id number] Results This patient has no known results.
== END 2020-07-10 18:44 | disposition home or self-care (01) ==
LOC: ER 16:21
DX: S06.0X0A Concussion without loss of consciousness, initial encounter (principal); W05.0XXA Fall from non-moving wheelchair, initial encounter; I13.0 Hypertensive heart and chronic kidney disease with heart failure and stage 1 through stage 4 chronic kidney disease, or unspecified chronic kidney disease; E11.22 Type 2 diabetes mellitus with diabetic chronic kidney disease; I50.9 Heart failure, unspecified; N18.6 End stage renal disease; Z99.2 Dependence on renal dialysis; Z79.4 Long term (current) use of insulin; E78.5 Hyperlipidemia, unspecified
CPT/HCPCS: 70450; 72125; 99284

== ENCOUNTER 2021-09-25 08:34 | Day surgery (SDC) | payer OTHER ==
[2021-09-25] MEDS ORDERED: NA CHLORIDE 0.9% 500 ML ONE (09:40)
[2021-09-25] MEDS ORDERED: LIDOCAINE 1% W/EPI 1:100,000 10 ML VIAL ONE (13:01)
[2021-09-25] MEDS ORDERED: propofoL 200 MG/20 ML VIAL IV ONE (13:24)
[2021-09-25] MEDS ORDERED: FENTANYL CITR 100 MCG/2 ML ONE (13:24)
[2021-09-25] MEDS ORDERED: MIDAZOLAM HCL 2 MG/2 ML INJ ONE (13:25)
[2021-09-25] MEDS ORDERED: LIDOCAINE 2% MPF 5 ML VIAL ONE (13:25)
[2021-09-25] MEDS ORDERED: ONDANSETRON 4 MG/2 ML VIAL ONE (13:47)
[2021-09-25] MEDS ORDERED: MEPERIDINE HCL 25 MG/ML SYR IM PRN (14:19)
--- NOTE | 2021-09-25 14:25 | P.BOP ---
Preoperative diagnosis: PMB Postoperative diagnosis: same Primary procedure: hystsc d/c Director Of Online Merchandising: NONE,NONE Estimated blood loss: min Specimen: emc Findings: empty cavity Anesthesia: MAC Complications: None Drain(s): Nasogastric Transferred to: Recovery Room
[2021-09-25 15:00] VITALS: BP 165/64; TEMP 97.1; O2SAT 94
[2021-09-25] MEDS ORDERED: SEVELAMER CARBONATE 800 MG TABLET PO SCH (17:00)
[2021-09-25] MEDS ORDERED: carvediloL 3.125 MG TAB PO SCH (21:00)
[2021-09-25] MEDS ORDERED: GABAPENTIN 100 MG CAP PO SCH (21:00)
[2021-09-25] MEDS ORDERED: LOSARTAN POTASSIUM 50 MG TABLET PO SCH (21:00)
[2021-09-25] MEDS ORDERED: ASPIRIN 81 MG CHEWABLE TABLET PO SCH (21:00)
[2021-09-25] MEDS ORDERED: DIALYVITE PO SCH (21:00)
[2021-09-26] MEDS ORDERED: GLIPIZIDE S.A. 5 MG TAB PO SCH (09:00)
[2021-09-26] MEDS ORDERED: HOME MED 1 EA UNK (Cholecalciferol (Vitamin D3) [Vitamin D3] 1,000 UNIT Capsule) PO SCH (09:00)
[2021-09-26] MEDS ORDERED: LACTULOSE 20 GM PO SCH (09:00)
--- NOTE | 2021-10-09 08:04 | OP ---
Date of Procedure: 09/25/2021 Surgeon: Hoa Alfaro MD Schedule Clerk: No assistants. Preoperative Diagnosis: Postmenopausal bleeding. Postoperative Diagnosis: Postmenopausal bleeding. Procedures Performed: Hysteroscopy, D and C. Anesthesia: MAC. Specimens: Endometrial curettings. Estimated Blood Loss: Minimal. Complications: No complications. Drains: No drains. Condition: The patient's condition stable. Procedure In Detail: After informed consent was verified, the patient was taken back to the OR, plac ed in supine fashion on the operating table, placed in a dorsal lithotomy position in Dano stirrups. Vulva and vagina were prepped. Speculum placed to expose the cervix. Anterior lip grasped with 2 Allis clamps. Diagnostic SlimLine hysteroscope was introduced through the cervical canal into the ut erine cavity. Cavity was empty. The scope was removed. Endometrial curettings were performed and h anded out for permanent pathology. She was recovered from anesthesia and taken to PACU in stable condition. She has a 1-week follow up with me in the office and we will discuss about the res ults. KAREN/MICHAEL Voice ID: [id number] Report ID: [id number]
== END 2021-09-25 15:20 | disposition home or self-care (01) ==
LOC: OR 08:34
PROVIDERS: ATTEND Obstetrics & Gynecology
PROC: 0UJD8ZZ Inspection of Uterus and Cervix, Via Natural or Artificial Opening Endoscopic (ICD-10-PCS; 2021-09-25)
PROC: 0UDB7ZX Extraction of Endometrium, Via Natural or Artificial Opening, Diagnostic (ICD-10-PCS; principal; 2021-09-25 11:30)
DX: N95.0 Postmenopausal bleeding (principal); R10.2 Pelvic and perineal pain; N95.2 Postmenopausal atrophic vaginitis; I50.22 Chronic systolic (congestive) heart failure; Z99.2 Dependence on renal dialysis; Z20.822 Contact with and (suspected) exposure to COVID-19
CPT/HCPCS: 82947 ×2; 88305; 58558; U0003; J2704; J2250; J3010; J7040; J2405

== ENCOUNTER 2022-02-05 07:56 | Day surgery (SDC) | payer OTHER ==
--- NOTE | 2021-12-27 14:53 | RAD REPORT ---
EXAM DESCRIPTION: RAD - Chest Pa And Lat (2 Views) - 12/27/2021 2:45 pm CLINICAL HISTORY: Pre op pending bladder biopsy COMPARISON: Portable 05/09/2020 TECHNIQUE: Frontal and lateral views of the chest were obtained. FINDINGS: The lungs are underinflated. This accentuates the baseline interstitial pattern. No periph eral mass or consolidations seen. Lung base atelectasis and/or scarring changes are present. Acute fa ilure or volume overload not suspected. Left-sided dialysis catheter has been removed since prior im aging. Heart size is normal and central vasculature is within normal limits. No pleural effusion or pneumothorax seen. No acute bony finding noted. No aortic abnormality. IMPRESSION: Limited portable study without acute cardiopulmonary finding.
[2021-12-27 15:12] LABS: Absolute Lymphocytes (CBC) 1.2 K/uL (0.7-4.9); Hematocrit 36.3 % (36.0-45.0); Lymphocytes % 22.6 % (15.3-44.8); MCV 93.9 fL (80-100); MPV 8.4 fL (7.6-11.3); RBC Red Blood Cell Count 3.86 M/uL (3.86-4.86)
[2021-12-27 15:14] LABS: Protime INR 1.14
[2021-12-27 15:36] LABS: SARS-CoV-2 Antigen Rapid Res Negative (Negative)
[2021-12-27 15:38] LABS: Potassium 4.4 mmol/L (3.5-5.1)
--- NOTE | 2021-12-28 15:21 | EKG ---
Test Date: 2021-12-27 Test Time: 14:17:00 Repair Servicer: MELVA MEASUREMENT RESULTS: Intervals: Rate: 70 DE: 200 QRSD: 122 QT: 442 QTc: 477 Carver: P: 35 DE: 200 QRS: -58 T: 39 INTERPRETIVE STATEMENTS: Normal sinus rhythm Left axis deviation Left bundle branch block Abnormal ECG Compared to ECG 05/03/2020 10:35:11 Left-axis deviation now present Left bundle-branch block now present Myocardial infarct finding no longer present Electronically Signed On 12-28-21 15:19:42 CDT by Jay Jay Ruano
[~2022-02-05 07:56] MED LIST: CLINDAMYCIN 600MG/D5W 600 MG/50 ML BAG IV ONE; Gentamicin Inj 200 MG in NA CHLORIDE 0.9% 100 ML IV SCH
[2022-02-05] MEDS ORDERED: NA CHLORIDE 0.9% 1,000 ML ONE (08:22)
[2022-02-05 08:55] LABS: SARS-CoV-2 Antigen Rapid Res Negative (Negative)
[2022-02-05] MEDS ORDERED: CLINDAMYCIN 600MG/D5W 600 MG/50 ML BAG IV ONE (09:00)
[2022-02-05] MEDS ORDERED: Gentamicin Inj 200 MG in NA CHLORIDE 0.9% 100 ML IV ONE (09:00)
[2022-02-05] MEDS ORDERED: LIDOCAINE 1% MPF 5 ML VIAL ONE (09:08)
[2022-02-05] MEDS ORDERED: propofoL 200 MG/20 ML VIAL IV ONE (09:08)
[2022-02-05] MEDS ORDERED: FENTANYL CITR 100 MCG/2 ML ONE (09:08)
[2022-02-05] MEDS ORDERED: ONDANSETRON 4 MG/2 ML VIAL ONE ×2 (09:37→10:22)
[2022-02-05] MEDS ORDERED: EPHEDRINE SULF 50 MG/ML VIAL ONE (10:03)
[2022-02-05] MEDS ORDERED: NS 0.9% VIAL 10 ML ONE (10:03)
[2022-02-05] MEDS: MORPHINE 4 MG/ML SYR ONE ×2 (10:15→10:20)
[2022-02-05] MEDS ORDERED: MORPHINE 4 MG/ML SYR ONE (10:33)
[2022-02-05] MEDS ORDERED: OPIUM/BELLADONNA SUPPOS (30-16.2 MG) PR ONE ×2 (10:34→10:38)
[2022-02-05] MEDS: HYDROMORPHONE ORAL 2 MG TAB PO ONE ×2 (11:30→11:40)
--- NOTE | 2022-02-05 11:31 | RAD REPORT ---
EXAM DESCRIPTION: RAD - Urethrocystogrphy Retrograde - 02/05/2022 10:09 am FINDINGS: V portable KUB images were obtained during fluoroscopic assisted left ureter evaluation. Fluoro time was 16 seconds. Cumulative dose was 10.0 mGy.
[2022-02-05] MEDS ORDERED: HYDROMORPHONE HCL 1 MG/ML INJ ONE (11:35)
[2022-02-05 12:45] VITALS: BP 111/70; TEMP 97.4; O2SAT 99
== END 2022-02-05 12:25 | disposition home or self-care (01) ==
LOC: OR 07:56
PROVIDERS: ATTEND Urology
PROC: 0TBB8ZX Excision of Bladder, Via Natural or Artificial Opening Endoscopic, Diagnostic (ICD-10-PCS; principal; 2022-02-05 08:45)
DX: N30.91 Cystitis, unspecified with hematuria (principal); N13.9 Obstructive and reflux uropathy, unspecified; R10.2 Pelvic and perineal pain; Z88.0 Allergy status to penicillin; E11.9 Type 2 diabetes mellitus without complications; I50.9 Heart failure, unspecified; N18.9 Chronic kidney disease, unspecified; Z99.2 Dependence on renal dialysis; Z20.822 Contact with and (suspected) exposure to COVID-19
CPT/HCPCS: 36415; 51610; 71046; 74450; 80048; 82947; 85025; 85610; 87077; 87086; 87088; 87186; 87811; 88305; 93005; A4216; J1170; J1580; J2001; J2405; J2704; J3010; J7030

== ENCOUNTER 2022-02-24 15:25 | Inpatient (IN) | payer OTHER ==
--- OUTSIDE RECORDS SUMMARY | 2022-02-24 15:27 | XMS REPORT | Continuity of Care Document ---
:[address] [facility] t Address [address] [place] [place] [address] Care Team Providers Name Role Phone SYSTEM, PCP NOT IN Primary Care Physician Unavailable ERICH AMOS Attending Clinician Unavailable DARRIN JETT Attending Clinician Unavailable Darrin Jett MD Attending Clinician Doctor Unassigned, [place] Attending Clinician Unavailable Zahida Girard Attending Clinician EMMA HA Attending Clinician Unavailable DARRIN JETT Admitting Clinician Unavailable Payers Payer Name Policy Type Policy Number Effective Date Expiration Date Cassandra moser MEDICARE PART A [id number] 2020 \T\ B 00:00:00 [place]ID OF [place] [id number] 2021 00:00:00 Problems Condition Condition Condition Status Onset Resolution Last Treating Co mments Source Name Details Category Date Date Treatment Clinician Date Morbid Morbid Disease Active [facility] obesity obesity 02-01 [place] mass index 00 Me dical of of Branch 40.0-49.9 40.0-49.9 Morbid Morbid Disease Active [facility] obesity obesity 02-01 [place] body [place] mass [place] mass index 00 [place] dical of of Branch 40.0-49.9 40.0-49.9 Acute Acute Disease Active [facility] respirator respirator 8-14 it y of y disease y disease 00:00: Annmarie lara due to due to 00 Medical COVID-19 COVID-19 Branch virus virus Obesity Obesity Disease Active Univers (BMI (BMI 8-14 ity of 30-39.9) 30-39.9) 00:00: [place] 00 Medical Branch Allergies, Adverse Reactions, Alerts Allergy Allergy Status Severity Reaction(s) Onset Inactive Treating Comm ents Source Name Type Date Date Clinician Penicill Propensi Active Anaphylaxis 2014-06 U nivers in ty to 0-28 ity of adverse 00:00: [place] reaction 00 Medical s Branch PENICILL DRUG Active Anaphylaxis 2014-06 Uni vers IN INGREDI 0-28 ity of 00:00: [place] 00 Medical Branch Social History Social Habit Start Date Stop Date Quantity Comments Source Exposure to 2021-09-17 2021-09-27 Not sure [facility] SARS-CoV-2 (event) 00:00:00 09:49:00 Medica l Branch History [facility] 2020-01-14 2020-01-14 2 [facility] Transport Med 00:00:00 00:00:00 Medical Bra nch History [facility] 2020-01-14 2020-01-14 2 [facility] Transport Non-Med 00:00:00 00:00:00 Medical Branch Tobacco use and 2020-01-14 2020-01-14 Never used [facility] exposure 00:00:00 00:00:00 Medical Branch Alcohol intake 2020-01-14 2020-01-14 0 /d [facility] 00:00:00 00:00:00 Medical Branch History [facility] 2020-01-14 2020-01-14 1 [facility] Financial 00:00:00 00:00:00 Medical Branch History [facility] Food 2020-01-14 2020-01-14 [facility] Medical Branch History [facility] Food 2020-01-14 2020-01-14 3 [facility] Scarcity 00:00:00 00:00:00 Medical Branch Sex [birth year] [facility] 00:00:00 00:00:00 Medical Branch Smoking Status Start Date Stop Date Source Never smoker [facility] xa Medical Branch Medications Ordered Filled Start Stop Current Ordering Indication Dosage Frequency Signature Comments Components Source Medication Medication Date Date Medication? Clinician (SIG) Name Name aspirin 81 2020-0 2020- No [id number] 81mg Take 1 Univers mg chewable 9-10 12-10 tablet by it y of tablet 00:00: 05:59 mouth [place] 00 :00 daily for Medical 90 days. Branch cholecalcif 2019- 2020- No [id number] 1000U Take 1 Univers filiberto, 9-10 12-10 tablet by ity of vitamin D3, 00:00[place] 05:[place] 25 [place] 00 :00 daily for Medical (1,000 90 days. Branch unit) tablet aspirin 81 2019- 2020- No [id number] 81mg Take 1 Univers mg chewable 9-10 12-10 tablet by it y of tablet 00:00: 05:59 mouth [place] 00 :00 daily for Medical 90 days. Branch cholecalcif 2019- 2020- No [id number] 1000U Take 1 Univers filiberto, 9-10 12-10 tablet by ity of vitamin D3, 00:00: 05:59 [place] 25 m[place] 00 :00 daily for Medical (1,000 90 days. Branch unit) tablet ferrous 2019-0 2020- No [id number] 325mg Take 1 U nivers sulfate 325 9-10 10-11 tablet by it y of mg (65 mg 00:00: 04:59 mouth [place] iron) 00 :00 daily for Medical tablet 30 days. Branch ferrous 2019-0 2020- No [id number] 325mg Take 1 U nivers sulfate 325 9-10 10-11 tablet by it y of mg (65 mg 00:00: 04:59 mouth [place] iron) 00 :00 daily for Medical tablet 30 days. Branch naproxen 0 Yes 220{cap Take 220 Un kylee sodium 9-09 johan} Caps by ity of (ALEVE) 220 21:56: [place] mg capsule 18 needed. Medica l Branch naproxen 2019-0 Yes 220{cap Take 220 Un kylee sodium 9-09 johan} Caps by ity of (ALEVE) 220 21:56: [place] mg capsule 18 needed. Medica l Branch naproxen 2019-0 Yes 220{cap Take 220 Un [place] sodium 9-09 johan} Caps by ity of (ALEVE) 220 16:56: [place] mg capsule 18 needed. Medica l Branch naproxen 2020-0 Yes 220{cap Take 220 Un k[place]e sodium 9-09 johan} Caps by ity of (ALEVE) 220 16:56: [place] mg capsule 18 needed. Medica l Branch naproxen 2020-0 Yes 220{cap Take 220 Un kylee sodium 9-09 johan} Caps by ity of (ALEVE) 220 16:56: [place] mg capsule 18 needed. Medica l Branch Lancets 2020-0 Yes [id number] Use as Uni vers Misc 02-08 directed ity of 00:00: [place] 00 Medical Branch Blood-Gluco 2020-0 Yes [id number] Use as Univers se Meter 02-08 directed ity of Kit 00:00: [place] 00 Medical Branch Blood 2020-0 Yes [id number] Use as Unive rs Glucose 02-08 directed ity of Strip-Disp 00:00: [place] Meter Kit 00 Medical Branch Lancets 2020-0 Yes [id number] Use as Uni vers Misc 02-08 directed ity of 00:00: [place] 00 Medical Branch Blood-Gluco 2020-0 Yes [id number] Use as Univers se Meter 02-08 directed ity of Kit 00:00: [place] 00 Medical Branch Blood 2020-0 Yes [id number] Use as Unive rs Glucose 02-08 directed ity of Strip-Disp 00:00: [place] Meter Kit 00 Medical Branch Lancets 2020-0 Yes [id number] Use as Uni vers Misc 02-08 directed ity of 00:00: [place] 00 Medical Branch Blood-Gluco 2020-0 Yes [id number] Use as Univers se Meter 02-08 directed ity of Kit 00:00: [place] 00 Medical Branch Blood 2020-0 Yes [id number] Use as Unive rs Glucose 02-08 directed ity of Strip-Disp 00:00: [place] Meter Kit 00 Medical Branch Lancets 2020-0 Yes [id number] Use as Uni vers Misc 02-08 directed ity of 00:00: [place] 00 Medical Branch Blood-Gluco 2020-0 Yes [id number] Use as Univers se Meter 02-08 directed ity of Kit 00:00: [place] 00 Medical Branch Blood 2020-0 Yes [id number] Use as Unive rs Glucose 02-08 directed ity of Strip-Disp 00:00: [place] Meter Kit 00 Medical Branch Lancets 2020-0 Yes [id number] Use as Uni vers Misc 02-08 directed ity of 00:00: [place] 00 Medical Branch Blood-Gluco 2020-0 Yes [id number] Use as Univers se Meter 02-08 directed ity of Kit 00:00: [place] 00 Medical Branch Blood 2020-0 Yes [id number] Use as Unive rs Glucose 02-08 directed ity of Strip-Disp 00:00: [place] Meter Kit 00 Medical Branch amLODIPine 2020- No [id number] 10mg Take 1 Univers 10 mg 02-08 tablet by ity of tablet 00:00: 05:59 mouth [place] 00 :00 daily for Medical 90 days. Branch carvediloL 2019- No [id number] 12.5mg Take 1 Univers 12.5 mg 02-08 tablet by ity of tablet 00:00: 05:59 mouth 2 [place] 00 :00 (two) [facility] daily with meals for 90 days. sennosides 2019- No [id number] 8.6mg Take 1 Univers 8.6 mg 02-08 tablet by ity of tablet 00:00: 05:59 mouth 2 [place] 00 :00 (two) [facility] daily for 90 days. Insulin 2020- No [id number] 20U inject 20 Univers Glargine 02-08 Units ity of (LANTUS 00:00: 05:59 [place] 00 :00 skin at [facility] U-100 bedtime Branch INSULIN) for 90 100 unit/mL days. (3 mL) injection hydrALAZINE 2020- No [id number] 25mg Take 1 Univers 25 mg 02-08 tablet by ity of tablet 00:00: 05:59 mouth 2 [place] 00 :00 (two) [facility] daily for 90 days. amLODIPine 2020- No [id number] 10mg Take 1 Univers 10 mg 02-08 tablet by ity of tablet 00:00: 05:59 mouth [place] 00 :00 daily for Medical 90 days. Branch carvediloL 2019- No [id number] 12.5mg Take 1 Univers 12.5 mg 02-08 tablet by ity of tablet 00:00: 05:59 mouth 2 [place] 00 :00 (two) Medical times Branch daily with meals for 90 days. sennosides 2020- No [id number] 8.6mg Take 1 Univers 8.6 mg 02-08 tablet by ity of tablet 00:00: 05:59 mouth 2 [place] 00 :00 (two) Medical times Branch daily for 90 days. Insulin 2020- No [id number] 20U inject 20 Univers Glargine 02-08 Units ity of (LANTUS 00:00: 05:59 [place] :[place] skin at [facility] U-100 bedtime Branch INSULIN) for 90 100 unit/mL days. (3 mL) injection hydrALAZINE 2019- No [id number] 25mg Take 1 Univers 25 mg 02-08 tablet by ity of tablet 00:00: 05:59 mouth 2 [place] 00 :00 (two) Medical times Branch daily for 90 days. furosemide 2019-0 Yes TAKE 1 Unive rs 40 mg 8-10 TABLET BY ity of tablet 00:00: MOUTH [place] 00 TWICE A Medical DAY Branch gabapentin 2020-0 Yes TAKE BY Univ ers 100 mg 8-10 MOUTH 2 ity of capsule 00:00: [place] 3 [place] 00 TIMES A Medical DAY Branch NEEDED FOR PAIN furosemide 2019-0 Yes TAKE 1 Unive rs 40 mg 8-10 TABLET BY ity of tablet 00:00: MOUTH [place] 00 TWICE A Medical DAY Branch gabapentin 2020-0 Yes TAKE BY Univ ers 100 mg 8-10 MOUTH 2 ity of capsule 00:00: [place] 3 [place] 00 TIMES A Medical DAY Branch NEEDED FOR PAIN furosemide 2020-0 Yes TAKE 1 Unive rs 40 mg 8-10 TABLET BY ity of tablet 00:00: MOUTH [place] 00 TWICE A Medical DAY Branch gabapentin 2020-0 Yes TAKE BY Univ ers 100 mg 8-10 MOUTH 2 ity of capsule 00:00: [place] 3 [place] 00 TIMES A Medical DAY Branch NEEDED FOR PAIN furosemide 2020-0 Yes TAKE 1 Unive rs 40 mg 8-10 TABLET BY ity of tablet 00:00: MOUTH [place] 00 TWICE A Medical DAY Branch gabapentin 2020-0 Yes TAKE BY Univ ers 100 mg 8-10 MOUTH 2 ity of capsule 00:00: [place] 3 [place] 00 TIMES A Medical DAY Branch NEEDED FOR PAIN furosemide 2020-0 Yes TAKE 1 Unive rs 40 mg 8-10 TABLET BY ity of tablet 00:00: MOUTH [place] [address] TWICE A Medical DAY Branch gabapentin 2020-0 Yes TAKE BY Univ ers 100 mg 8-10 MOUTH 2 ity of capsule 00:00: [place] 3 [place] 00 TIMES A Medical DAY Branch NEEDED FOR PAIN cyclobenzap 2018-06 Yes 10mg Take 10 mg Univers rine 10 mg 0-01 by mouth. ity of tablet 00:00: [address] Branch metoclopram 2018-06 Yes 5mg Take 5 mg U nivers renato HCl 5 0-01 by mouth. ity o f mg tablet 00:00: [address] pantoprazol 2018-06 Yes 40mg Take 40 mg Univers e 40 mg EC 0-01 by mouth. ity of tablet 00:00: [address] pravastatin 2018-06 Yes 40mg Take 40 mg Univers 40 mg 0-01 by mouth. ity of tablet 00:00: [address] cyclobenzap 2018-06 Yes 10mg Take 10 mg Univers rine 10 mg 0-01 by mouth. ity of tablet 00:00: [address] metoclopram 2018-06 Yes 5mg Take 5 mg U nivers renato HCl 5 0-01 by mouth. ity o f mg tablet 00:00: [address] pantoprazol 2018-06 Yes 40mg Take 40 mg Univers e 40 mg EC 0-01 by mouth. ity of tablet 00:00: [address] pravastatin 2018- Yes 40mg Take 40 mg Univers 40 mg 0-01 by mouth. ity of tablet 00:00: [address] cyclobenzap 2018-06 Yes 10mg Take 10 mg Univers rine 10 mg 0-01 by mouth. ity of tablet 00:00: [address] metoclopram 2018-06 Yes 5mg Take 5 mg U nivers renato HCl 5 0-01 by mouth. ity o f mg tablet 00:00: [address] pantoprazol 2018- Yes 40mg Take 40 mg Univers e 40 mg EC 0-01 by mouth. ity of tablet 00:00: [address] pravastatin 2019- Yes 40mg Take 40 mg Univers 40 mg 0-01 by mouth. ity of tablet 00:00: [address] cyclobenzap 2018-06 Yes 10mg Take 10 mg Univers rine 10 mg 0-01 by mouth. ity of tablet 00:00: [place] [facility] Branch metoclopram 2018-06 Yes 5mg Take 5 mg U nivers renato HCl 5 0-01 by mouth. ity o f mg tablet 00:00: [place] [facility] Branch pantoprazol 2018-06 Yes 40mg Take 40 mg Univers e 40 mg EC 0-01 by mouth. ity of tablet 00:00: [place] [facility] Branch pravastatin 2018-06 Yes 40mg Take 40 mg Univers 40 mg 0-01 by mouth. ity of tablet 00:00: [place] [facility] Branch cyclobenzap 2018-06 Yes 10mg Take 10 mg Univers rine 10 mg 0-01 by mouth. ity of tablet 00:00: [place] [facility] metoclopram 2018-06 Yes 5mg Take 5 mg U nivers renato HCl 5 0-01 by mouth. ity o f mg tablet 00:00: [place] [facility] pantoprazol 2018-06 Yes 40mg Take 40 mg Univers e 40 mg EC 0-01 by mouth. ity of tablet 00:00: [place] [facility] pravastatin 2018-06 Yes 40mg Take 40 mg Univers 40 mg 0-01 by mouth. ity of tablet 00:00: [address] Procedures Procedure Date / Time Performing Clinician Source Performed MR LUMBAR SPINE WO 2021-10-03 17:33:38 Darrin Jett [facility] MR CERVICAL SPINE WO 2021-09-27 16:22:00 Darrin Jett [facility] NOTICE OF PRIVACY 2021-09-27 14:56:14 Doctor Unassigned, No [facility] PRACTICES Name Medical Branch CONSENT/REFUSAL FOR 2021-09-27 14:55:59 [facility] Name Medical Branch CONSENT/REFUSAL FOR 2021-09-27 14:55:21 Doctor Unassigned, No [facility] DIAGNOSIS AND TREATMENT Name Medical Branch ASSIGNMENT OF BENEFITS 2021-09-27 14:54:58 Doctor Unassigned, No [facility] Medical Branch AUTHORIZATION FOR 2020-03-07 05:01:00 Doctor Unassigned, No [facility] RELEASE OF PHI Name Medical Branch Encounters Start End Encounter Admission Attending Care Care Encounter Source Date/Time Date/Time Type Type Clinicians Facility Department ID 2022-02-18 Outpatient AMOS, STLMLC STLMLC [id number] Common 14:14:03 ERICH [facility] 2021-11-29 Outpatient AMOS, STLMLC STLMLC [id number] Common 14:01:03 ERICH [facility] 2022-02-01 2022-02-01 ambulatory STLMLC STLMLC [id number] Common 00:00:00 00:00:00 [facility] 2022 2022 ambulatory STLMLC STLMLC [id number] Common 00:00:00 00:00:00 [facility] 2021-12-13 2021-12-13 ambulatory STLMLC STLMLC [id number] Common 00:00:00 00:00:00 [facility] 2021-11-29 2021-11-29 ambulatory STLMLC STLMLC [id number] Common 00:00:00 00:00:00 [facility] 2021-10-03 2021-10-03 [facility] [id number] Univers 11:18:32 23:59:00 DARRIN [facility] 2021-10-03 2021-10-03 [facility] [id number] Univers 11:18:32 23:59:00 Encounter Darrin [id number] [id number] [place] [address] Branch 2021-10-03 2021-10-03 [facility] [id number] Univers 11:30:00 11:30:00 [facility] [id number] [facility]-09-27 [facility] [id number] Univers 09:30:00 23:59:00 Encounter Darrin PIMENTEL [id number] [facility]y [facility] 4[place] [id number] [facility] 804 Branch 2021-09-27 2021-09-27 Outpatient R JOHNIE [facility] [id number] Univers 09:51:28 09:29:00 DARRIN ity of [facility] 2021-09-27 2021-09-27 [facility] Johnie, [facility] [id number] Univers 09:00:00 09:29:00 Encounter Darrin PIMENTEL [id number] ity [facility] 4.2.7.2.686 [place] [facility] [id number] [facility] 804 Branch 2020-03-07 2020-03-07 Orders Doctor VINICIO [id number] 00:00:00 00:00:00 Only Unassigned, ALLY [id number] [facility] [id number] [id number] 2020-03-07 2020-03-07 Orders Doctor VINICIO [id number] Univers 00:00:00 00:00:00 Only Unassigned, ALLY [id number] ity of [place] [facility] 4.2.7.2.686 Alli as [id number] [place] [address] Branch 2020-02-10 2020-02-10 Transition Kath Girard [id number] 00:00:00 00:00:00 of Care Zahdia Michele [id number] [place] [id number] [id number] [facility] 2020-02-10 2020-02-10 Transition Kath Girard [id number] Univers 00:00:00 00:00:00 of Care Zahida Michele [id number] ity of [place] 4[place]2.7.2.686 [place] [id number] [facility] 403 Branch 2020-01-13 2020-01-13 Emergency X DILCIA, [facility] ERT [id number] Univers 21:11:00 21:11:00 EMMA higgins of [facility] Results This patient has no known results.
[2022-02-24 16:27] LABS: Absolute Lymphocytes (CBC) 1.5 K/uL (0.7-4.9); Hematocrit 33.1 % (36.0-45.0); Lymphocytes % 21.4 % (15.3-44.8); MCV 93.9 fL (80-100); MPV 8.1 fL (7.6-11.3); RBC Red Blood Cell Count 3.52 M/uL (3.86-4.86)
[2022-02-24 16:34] LABS: Protime INR 1.12
[2022-02-24] MEDS ORDERED: ONDANSETRON 4 MG/2 ML VIAL ONE (16:44)
[2022-02-24] MEDS ORDERED: MECLIZINE HCL 12.5 MG TAB ONE (16:44)
[2022-02-24 16:45] LABS: Magnesium 2.6 mg/dL (1.8-2.4); Potassium 4.6 mmol/L (3.5-5.1)
--- NOTE | 2022-02-24 17:15 | RAD REPORT ---
EXAM DESCRIPTION: CT - Head Brain Wo Cont - 02/24/2022 4:57 pm CLINICAL HISTORY: dizziness COMPARISON: Head C Spine Mpr Wo Con dated 07/10/2020 TECHNIQUE: Axial 5 mm thick images of the head were obtained without IV contrast. All CT scans are performed using dose optimization technique as appropriate and may include automated exposure control or mA/KV adjustment according to patient size. FINDINGS: No intracranial hemorrhage, mass, edema or shift of mid-line structures. No acute infarcti on changes seen. No abnormal extra-axial fluid collections. Ventricles are normal. Atrophy is minimal . Chronic ischemic changes are mild as well. Mastoid air cells and visualized portions of the paranasal sinuses are clear. No acute bony findings. IMPRESSION: Negative non-contrast CT head examination for acute intracranial finding. . Chronic ischemic changes can mask nonhemorrhagic acute infarction. MR brain followup can be obtained if there is ongoing concern for acute ischemia.
--- NOTE | 2022-02-24 19:00 | EDPHYS ---
Physician Documentation [facility] Name: Abby Meredith Age: 67 yrs Sex: Female : 1955 Arrival Date: 02/24/2022 Time: 15:27 Bed 17 Private MD: ED Physician Lamont Vega HPI: 02/24 15:55 This 67 yrs old Female presents to ER via EMS with complaints of Dizziness. cp 15:55 The patient presents with dizziness, lightheadedness, feeling off balance. Onset: The cp symptoms/episode began/occurred yesterday. 15:55 Context: just prior to the episode the patient experienced no apparent symptoms. cp 15:55 Associated signs and symptoms: Pertinent negatives: abdominal pain, chest pain, cp confusion, diaphoresis, focal weakness, headache, syncope, vomiting. Severity of symptoms: in the emergency department the symptoms are unchanged despite home interventions. Patient's baseline: Neuro: alert and fully oriented, Motor: no deficits, Ambulation: walks without assistance, Speech: normal. Historical: - Allergies: 15:44 PENICILLINS; mb8 - PMHx: 15:44 CHF; Diabetes - IDDM; Dialysis; M-W-F; Hyperlipidemia; Hypertension; mb8 - Social history:: Smoking status: Patient denies any tobacco usage or history of. ROS: 16:00 Constitutional: Negative for body aches, chills, fever, poor PO intake. cp 16:00 Cardiovascular: Negative for chest pain, edema, palpitations. cp 16:00 Respiratory: Negative for cough, shortness of breath, wheezing. 16:00 Eyes: Positive for blurry vision, Negative for pain, redness, vision loss. cp 16:00 ENT: Negative for drainage from ear(s), ear pain, sore throat, difficulty swallowing, difficulty handling secretions. 16:00 Abdomen/GI: Negative for abdominal pain, vomiting, diarrhea, constipation. 16:00 Neuro: Positive for dizziness, weakness, Negative for altered mental status, headache, loss of consciousness, numbness, syncope. 16:00 All other systems are negative. Exam: 16:05 Constitutional: The patient appears in no acute distress, alert, awake, cp non-diaphoretic, non-toxic, well developed, well nourished. 16:05 Head/Face: Normocephalic, atraumatic. cp 16:05 Eyes: Periorbital structures: appear normal, Pupils: equal, round, and reactive to light and accomodation, Extraocular movements: intact throughout, Conjunctiva: normal, no exudate, no injection, Sclera: no appreciated abnormality, Lids and lashes: appear normal, bilaterally. 16:05 ENT: External ear(s): are unremarkable, Ear canal(s): are normal, clear, TM's: dullness, bilaterally, Nose: is normal, Mouth: Lips: moist, Oral mucosa: pink and intact, moist, Posterior pharynx: Airway: no evidence of obstruction, patent. 16:05 Neck: ROM/movement: is normal, is supple, without pain, no range of motions limitations. 16:05 Chest/axilla: Inspection: normal. 16:05 Cardiovascular: Rate: normal, Rhythm: regular, Edema: is not appreciated, JVD: is not appreciated. 16:05 Respiratory: the patient does not display signs of respiratory distress, Respirations: normal, no use of accessory muscles, no retractions, labored breathing, is not present, Breath sounds: are clear throughout, no decreased breath sounds, no stridor, no wheezing. 16:05 Abdomen/GI: Inspection: abdomen appears normal, Palpation: abdomen is soft and non-tender, in all quadrants. 16:05 Back: pain, is absent, ROM is normal. 16:05 Neuro: Orientation: to person, place \T\ time. Mentation: is normal, Cerebellar function: Romberg testing is negative, dysmetria is noted on both sides, Motor: moves all fours, general weakness with no focal deficits, Sensation: no obvious gross deficits. 16:32 ECG was reviewed by the Attending Physician. cp Vital Signs: 15:43 BP 195 / 78; Pulse 73; Resp 23; Temp 98.1; Pulse Ox 98% ; Pain 0/10; mb8 16:43 BP 186 / 71; Pulse 71; Resp 22; Pulse Ox 97% ; Pain 0/10; mb8 17:31 BP 134 / 63; Pulse 72; Resp 20; Pulse Ox 99% ; mb8 18:22 BP 165 / 72; Pulse 70; Resp 19; Pulse Ox 97% ; mb8 20:45 BP 145 / 60; Pulse 69; Resp 17 S; Pulse Ox 95% on R/A; aa9 NIH Stroke Scale Scores: 16:05 NIHSS Score: 2 cp MDM: 15:38 Patient medically screened. rn 16:00 Differential diagnosis: CVA, head injury, idiopathic dizziness, vertigo. 17:30 Data reviewed: vital signs, nurses notes, lab test result(s), EKG, radiologic studies, cp CT scan, I have discussed the patient's presentation/case with the attending Emergency Department Physician; and as a result, I will admit patient. 17:30 Test interpretation: by ED physician or midlevel provider: ECG, plain radiologic cp studies. 19:00 Physician consultation: Payton Hamilton PA-C was contacted at 19:00, regarding admission, cp to the telemetry unit. patient's condition. 02/24 15:52 Order name: Basic Metabolic Panel; Complete Time: 16:52 02/24 16:52 Interpretation: Normal except: NA 135; BUN 58; CRE 7.08; GFR 6. 02/24 15:52 Order name: CBC with Diff; Complete Time: 16:52 02/24 16:53 Interpretation: Normal except: RBC 3.52; HGB 10.8; HCT 33.1; EOSINOPHIL % 5.4. 02/24 15:52 Order name: Magnesium; Complete Time: 16:52 02/24 16:53 Interpretation: Abnormal: MG 2.6. 02/24 15:52 Order name: Protime (+inr); Complete Time: 16:52 02/24 15:52 Order name: Ptt, Activated; Complete Time: 16:52 02/24 18:58 Order name: SARS RAPID; Complete Time: 21:00 02/24 15:52 Order name: CT Head Brain wo Cont; Complete Time: 17:18 02/24 17:19 Interpretation: Report reviewed. 02/25 02:47 Order name: CBC with Automated Diff; Complete Time: 03: EDWI 02/25 03:17 Order name: Basic Metabolic Panel; Complete Time: 03: EDWI 02/25 03:17 Order name: Phosphorus; Complete Time: 03: EDWI 02/25 03:17 Order name: Lipid Profile; Complete Time: 03: EDWI 02/25 03:17 Order name: Magnesium; Complete Time: 03: EDWI 02/25 03:17 Order name: Thyroid Stimulating Hormone; Complete Time: 03:26 EDMS 02/25 07:44 Order name: Glucose, Ancillary Testing EDMS 02/24 15:52 Order name: EKG; Complete Time: 15:53 rn 02/24 15:52 Order name: Cardiac monitoring; Complete Time: 16:11 02/24 15:52 Order name: EKG - Nurse/Tech; Complete Time: 16:33 rn 02/24 15:52 Order name: IV Saline Lock; Complete Time: 16: 02/24 15:52 Order name: Labs collected and sent; Complete Time: 16:11 rn 02/24 15:52 Order name: NPO; Complete Time: 16:11 rn 02/24 15:52 Order name: O2 Per Protocol; Complete Time: 16: 02/24 15:52 Order name: O2 Sat Monitoring; Complete Time: 16: 02/24 19:48 Order name: Abdomen ; Complete Time: 21:36 EDMS EC:32 Rate is 71 beats/min. Rhythm is regular. KS interval is normal. QRS interval is cp prolonged at 116 msec. QT interval is normal. T waves are Inverted in lead aVR. Interpreted by me. Reviewed by me. Administered Medications: 16:42 Drug: Meclizine 25 mg Route: PO; mb8 16:42 Drug: Zofran (Ondansetron) 4 mg Route: IVP; Site: right forearm; mb8 20:24 Drug: morphine 4 mg Route: IVP; Infused Over: 4 mins; Site: left forearm; aa9 Disposition Summary: 02/24/22 18:59 Hospitalization Ordered Hospitalization Status: Observation cp Provider: Payton Hamilton cp Condition: Stable cp Problem: new cp Symptoms: have improved cp Bed/Room Type: Standard cp Location: Telemetry/MedSurg (observation)(02/25/22 10:57) bd Room Assignment: 423(02/25/22 10:57) bd Diagnosis - Dizziness and giddiness cp Forms: - Medication Reconciliation Form cp - SBAR form cp NIH Stroke Scale - NIH Stroke Score Date: 02/24/2022 Time: 16:05 Total Score = 2 1a. Level of Consciousness (LOC) - 0(Alert) 1b. Level of Consciousness (LOC) (Month \T\ Age) - 0(Both) 1c. LOC Commands (Open \T\ Closes Eyes/Focuser) - 0(Both) 2. Best Gaze (Lateral Gaze Paresis) - 0(Normal) 3. Visual Field Loss - 0(No visual loss) 4. Facial Palsy - 0(Normal) 5a. Left Arm: Motor (10-second hold) - 0(No drift) 5b. Right Arm: Motor (10-second hold) - 0(No drift) 6a. Left Leg: Motor (5-second hold - always test supine) - 0(No drift) 6b. Right Leg: Motor (5-second hold - always test supine) - 0(No drift) 7. Limb Ataxia (finger/nose \T\ heel/sylvester - test with eyes open) - 2(Present in two limbs) 8. Sensory Loss (pinprick arms/legs/face) - 0(Normal) 9. Best Language: Aphasia (description/naming/reading) - 0(No aphasia) 10. Dysarthria (speech clarity - read or repeat words) - 0(Normal) 11. Extinction and Inattention (visual/tactile/auditory/spatial/personal) - 0(No abnormality) Initials: cp Addendum: 02/27/2022 07:33 Co-signature as Attending Physician, Lamont Vega MD. rn Signatures: Dispatcher [employer] EDSujatha Guevara Martha RN BLAIR Lamont Vega MD MD rn Page, Corey, PA PA cp Avalos, Aylin, RN RN aa9 Yasir Mcbride RN RN mb8 Payton Hamilton, PA-Tino PA-C sb4 Corrections: (The following items were deleted from the chart) 02/24 19:20 18:59 Telemetry/MedSurg (observation) [facility] 19:20 18:59 [facility] 02/25 10:57 02/24 19:20 [facility] ER HOLD [facility] 02/25 10:57 02/24 19:20 ERHOLD- [facility]
--- NOTE | 2022-02-24 19:00 | ER ---
Nurse's Notes [facility] Name: Abby Meredith Age: 67 yrs Sex: Female : 1955 Arrival Date: 02/24/2022 Time: 15:27 Bed 17 Private MD: Diagnosis: Dizziness and giddiness Presentation: 02/24 15:43 Chief complaint: Patient states: dizziness, last dialysis on Friday, denies any pain. mb8 Chief complaint:. Coronavirus screen: Vaccine status: Patient reports receiving the 2nd dose of the covid vaccine. Ebola Screen: Patient negative for fever greater than or equal to 101.5 degrees Fahrenheit, and additional compatible Ebola Virus Disease symptoms Patient denies exposure to infectious person. Patient denies travel to an Ebola-affected area in the 21 days before illness onset. Initial Sepsis Screen: Does the patient meet any 2 criteria? RR > 20 per min. No. Patient's initial sepsis screen is negative. Does the patient have a suspected source of infection? No. Patient's initial sepsis screen is negative. Risk Assessment: Do you want to hurt yourself or someone else? Patient reports no desire to harm self or others. Onset of symptoms is unknown. 15:43 Method Of Arrival: EMS mb8 15:43 Acuity: TOMASA 3 mb8 Triage Assessment: 15:46 General: Appears uncomfortable, ill, Behavior is cooperative, appropriate for age, mb8 anxious. Historical: - Allergies: 15:44 PENICILLINS; mb8 - PMHx: 15:44 CHF; Diabetes - IDDM; Dialysis; M-W-F; Hyperlipidemia; Hypertension; mb8 - Social history:: Smoking status: Patient denies any tobacco usage or history of. Screenin:46 Abuse screen: Denies threats or abuse. Denies injuries from another. Nutritional mb8 screening: No deficits noted. Tuberculosis screening: No symptoms or risk factors identified. Fall Risk No fall in past 12 months (0 pts). Secondary diagnosis (15 points) IV access (20 points). Ambulatory Aid- None/Bed Rest/Nurse Assist (0 pts). Gait- Weak (10 pts.). Mental Status- Oriented to own ability (0 pts). Total Lucero Fall Scale indicates Low Risk Score (25-44 pts). Fall prevention measures have been instituted. Side Rails Up X 2 Family Present and informed to notify staff if they need to leave bedside. Assessment: 15:45 Pain: Denies pain. Neuro: Reports dizziness. Cardiovascular: Denies chest pain, mb8 diaphoresis, nausea, palpitations, shortness of breath, vomiting, Capillary refill < 3 seconds Pulses are all present. Rhythm is sinus rhythm. 16:44 Reassessment: Patient and/or family updated on plan of care and expected duration. Pain mb8 level reassessed. Patient is alert, oriented x 3, equal unlabored respirations, skin warm/dry/pink. 18:22 Reassessment: patient still not feeling well, still reports dizziness. mb8 20:46 General: Appears comfortable, Behavior is cooperative, anxious, quiet. Neuro: Level of aa9 Consciousness is awake, alert, obeys commands, Oriented to person, place, time, situation. Cardiovascular: Patient's skin is warm and dry. Respiratory: Airway is patent Respiratory effort is even, unlabored. 02/25 11:08 Reassessment: report given to receiving nurse. tp1 Vital Signs: 02/24 15:43 BP 195 / 78; Pulse 73; Resp 23; Temp 98.1; Pulse Ox 98% ; Pain 0/10; mb8 16:43 BP 186 / 71; Pulse 71; Resp 22; Pulse Ox 97% ; Pain 0/10; mb8 17:31 BP 134 / 63; Pulse 72; Resp 20; Pulse Ox 99% ; mb8 18:22 BP 165 / 72; Pulse 70; Resp 19; Pulse Ox 97% ; mb8 20:45 BP 145 / 60; Pulse 69; Resp 17 S; Pulse Ox 95% on R/A; aa9 Vitals: 16:43 Cardiac Rhythm Assessment Sinus rhythm. mb8 NIH Stroke Scale Scores: 16:05 NIHSS Score: 2 cp ED Course: 15:27 Patient arrived in ED. eb 15:38 Lamont Vega MD is Attending Physician. rn 15:43 Yasir Mcbride RN is Primary Nurse. mb8 15:44 Triage completed. mb8 15:45 Arm band placed on. mb8 15:46 Patient has correct armband on for positive identification. Bed in low position. Call mb8 light in reach. Side rails up X2. Client placed on continuous cardiac and pulse oximetry monitoring. NIBP monitoring applied. drafter electronic on. 15:46 No provider procedures requiring assistance completed. Inserted saline lock: 20 gauge mb8 in right forearm, using aseptic technique. 16:09 Zachery Mendoza PA is PHCP. cp 16:58 CT Head Brain wo Cont In Process Unspecified. EDMS 18:59 Payton Hamilton PA-C is Hospitalizing Provider. cp 21:00 Abdomen In Process Unspecified. EDMS 21:55 Primary Nurse role handed off by Yasir Mcbride, BLAIR wm 22:15 Yanni Blake, BLAIR is Primary Nurse. aa9 Administered Medications: 16:42 Drug: Meclizine 25 mg Route: PO; mb8 16:42 Drug: Zofran (Ondansetron) 4 mg Route: IVP; Site: right forearm; mb8 20:24 Drug: morphine 4 mg Route: IVP; Infused Over: 4 mins; Site: left forearm; aa9 Medication: 15:46 VIS not applicable for this client. mb8 Outcome: 18:59 Decision to Hospitalize by Provider. cp 02/25 11:33 Patient left the ED. tp1 NIH Stroke Scale - NIH Stroke Score Date: 02/24/2022 Time: 16:05 Total Score = 2 1a. Level of Consciousness (LOC) - 0(Alert) 1b. Level of Consciousness (LOC) (Month \T\ Age) - 0(Both) 1c. LOC Commands (Open \T\ Closes Eyes/Reliability Engineer) - 0(Both) 2. Best Gaze (Lateral Gaze Paresis) - 0(Normal) 3. Visual Field Loss - 0(No visual loss) 4. Facial Palsy - 0(Normal) 5a. Left Arm: Motor (10-second hold) - 0(No drift) 5b. Right Arm: Motor (10-second hold) - 0(No drift) 6a. Left Leg: Motor (5-second hold - always test supine) - 0(No drift) 6b. Right Leg: Motor (5-second hold - always test supine) - 0(No drift) 7. Limb Ataxia (finger/nose \T\ heel/sylvester - test with eyes open) - 2(Present in two limbs) 8. Sensory Loss (pinprick arms/legs/face) - 0(Normal) 9. Best Language: Aphasia (description/naming/reading) - 0(No aphasia) 10. Dysarthria (speech clarity - read or repeat words) - 0(Normal) 11. Extinction and Inattention (visual/tactile/auditory/spatial/personal) - 0(No abnormality) Initials: cp Signatures: Dispatcher [employer] EDLamont Marcos MD MD rn Page, Corey, PA PA cp Botello, Elizabeth eb Marsh, Wendy wm Parker, Tiffany RN RN tp1 Yanni Blake RN RN aa9 Yasir Mcbride RN RN mb8
[2022-02-24] MEDS ORDERED: MORPHINE 4 MG/ML SYR ONE (20:33)
[2022-02-24 20:46] LABS: SARS-CoV-2 Antigen Rapid Res Negative (Negative)
--- NOTE | 2022-02-24 21:31 | RAD REPORT ---
EXAM DESCRIPTION: CT - Abdomen Pelvis Wo Contrast - 02/24/2022 8:58 pm CLINICAL HISTORY: abdominal pain/distension COMPARISON: [facility] Protocol dated 08/17/2021 TECHNIQUE: Axial [address] imaging of the abdomen and pelvis was performed without IV contrast. No IV contrast was given because of allergy, abnormal renal function, patient refusal or physician re quest. No contrast administered. All CT scans are performed using dose optimization technique as appropriate and may include automated exposure control or mA/KV adjustment according to patient size. FINDINGS: Lung base scarring and atelectasis changes present. No pericardial effusion. The liver, spleen and pancreas show no suspicious findings on non-contrast imaging. Cholecystectomy c lips are present. No abnormal biliary tree dilatation. Mild right-sided hydronephrosis is present to the distal-most ureter. No obstructing or nonobstructin g calculi. Right kidney appears edematous relative to the left. No left-sided hydronephrosis. No sig nificant adrenal finding. Isodense renal masses and pyelonephritis cannot be excluded in the absence of IV contrast. Urinary bladder is tightly contracted. No bladder calculi seen. Atrophic uterus and o varies present. No dilated bowel loops or bowel wall thickening. No suspicion for appendicitis. No acute GI process i dentifiable. No free air, free fluid or inflammatory stranding. No mass or bulky lymphadenopathy. Inguinal hernia s are present containing only fat. Mesh material is in place from prior periumbilical hernia repair. Disc and bone degenerative changes are present. Very dense calcifications of the arterial tree. Pelvi c floor laxity is present. There is congestion and edema in the subcutaneous fat of the lower abdomen and pelvis. IMPRESSION: Mild right-sided hydronephrosis without obstructing calculus identified. This could be f rom recently passed stone or possibly from inflammatory debris or blood in the ureter. A small ureter mass is possible. There was no abnormal dilatation on the July comparison. Isodense masses and pyelonephritis are not excluded on noncontrast study. Above detailed findings are otherwise unchanged from July comparison.
--- NOTE | 2022-02-24 21:47 | P.HP ---
Certification for Inpatient Patient admitted to: Observation With expected LOS: <2 Midnights Patient will require the following post-hospital care: None Practitioner: I am a practitioner with admitting privileges, knowledge of patient current condition, hospital course, and medical plan of care. Services: Services provided to patient in accordance with Admission requirements found in Title 42 Section 412.3 of the Code of Federal Regulations <Payton Hamilton - Last Filed: 02/24/22 23:51> Patient History Date of Service: 02/24/22 Reason for admission: Dizziness, Weakness, ESRD History of Present Illness: Patient is a 67 year old female with history of ESRD on HD MWF, hypertension, CHF, non insulin dependent type 2 diabetes, and obesity who presented to the ED with complaints of dizziness/lightheadedness/incoordination that began yesterday. Patient reports that she can barely walk without feeling like she is going to fall. She last had HD on friday without any complications. Head CT negative. CT abdomen pelvis showed "Mild right-sided hydronephrosis without obstructing calculus identified. This could be from recently passed stone or possibly from inflammatory debris or blood in the ureter. A small ureter mass is possible. There was no abnormal dilatation on the July comparison." Labs without significant abnormalities compared to baseline. She recently had cystoscopy with bladder biopsies with Dr. Elise that have been negative for infection or malignancy. She is also been complaining of severe constipation and abdominal pain. ED provider wishes to admit patient for observation for MRI in the morning. Home medications list reviewed: Yes - Past Medical/Surgical History Diabetic: Yes -: HTN -: DM II -: obesity -: dyslipidemia -: CHF -: ESRD -: Umbilical hernia repair x 2 -: Appendectomy -: Cystoscopy with Bladder Biopsy -: Hysteroscopy with D&C Psychosocial/ Personal History: Patient lives at home with her daughter. - Family History Mother -: Diabetes, Kidney disease Father -: Other (see notes) Notes: Brain aneurysm - Social History Smoking Status: Never smoker Alcohol use: No CD- Drugs: No Caffeine use: Yes Place of Residence: Home <Payton Hamilton - Last Filed: 02/24/22 23:51> Date of Service: 02/25/22 <Vladimir Casey - Last Filed: 02/25/22 18:58> Allergies Penicillins Allergy (Severe, Verified 12/27/21 14:04) Anaphylaxis amoxicillin Adverse Reaction (Severe, Verified 12/27/21 14:04) Anaphylaxis levofloxacin Adverse Reaction (Intermediate, Verified 12/27/21 14:04) Headaches Home Medications: Aspirin Chewable [Aspirin Chewable*] 81 mg PO BEDTIME 05/03/20 Carvedilol [Coreg] 3.125 mg PO BID 05/03/20 Cholecalciferol (Vitamin D3) [Vitamin D3] 1,000 unit PO DAILY 05/03/20 Dialyvite 800 Ultra 1 tab PO BEDTIME 05/03/20 Gabapentin [Neurontin*] 100 mg PO BEDTIME 05/03/20 Glipizide [Glipizide ER] 5 mg PO BID 09/25/21 Lactulose [Kristalose] 20 gm PO DAILYPRN PRN 09/25/21 Sevelamer Carbonate [Renvela*] 800 mg PO TIDWM 09/25/21 Docusate [Colace Cap*] 100 mg PO DAILY 12/27/21 Losartan Potassium [Cozaar] 12.5 mg PO BEDTIME 12/27/21 Smz./Tmp. [Bactrim Ds 800 MG/160 MG] 1 tab PO BID #6 tab 12/31/21 Hydromorphone [Dilaudid] 1 mg PO Q8HP PRN #6 tab 02/05/22 Review of Systems General: Weakness Gastrointestinal: Abdominal Pain, Distention, Constipation Neurological: Weakness, Incoordination <Payton Hamilton - Last Filed: 02/24/22 23:51> Physical Examination - Physical Exam General: Alert, In no apparent distress, Obese HEENT: Atraumatic, PERRLA, EOMI, Sclerae nonicteric Neck: Supple, 2+ carotid pulse no bruit, No LAD, Without JVD or thyroid abnormality Respiratory: Clear to auscultation bilaterally, Normal air movement Cardiovascular: Regular rate/rhythm, Normal S1 S2 Gastrointestinal: Normal bowel sounds, No tenderness Musculoskeletal: No tenderness Integumentary: No rashes Neurological: Normal speech, Normal strength at 5/5 x4 extr, Normal tone, Normal affect - Studies Laboratory Data (last 24 hrs) 02/24/22 16:08: PT 12.4, INR 1.12, APTT 30.9 02/24/22 16:08: WBC 6.80, Hgb 10.8 L, Hct 33.1 L, Plt Count 217 02/24/22 16:08: Sodium 135 L, Potassium 4.6, BUN 58 H, Creatinine 7.08 H*, Glucose 101, Magnesium 2.6 H <Payton Hamilton - Last Filed: 02/24/22 23:51> Assessment and Plan - Problems (Diagnosis) (1) ESRD (end stage renal disease) on dialysis Current Visit: Yes Status: Chronic (2) Dizziness Current Visit: Yes Status: Acute (3) Diabetes mellitus Current Visit: Yes Status: Chronic Qualifiers: Diabetes mellitus type: type 2 Diabetes mellitus mcc insulin use: without mcc use Diabetes mellitus complication status: with kidney co mplications Diabetes mellitus complication detail: with chronic kidney disease Chronic kidney disease stage: on chronic dialysis Qualified Code(s): E11.22 - Type 2 diabetes mellitus with diabetic chronic kidney disease; N18.6 - End stage renal disease; Z99.2 - Dependence on renal dialysis (4) HTN (hypertension) Current Visit: Yes Status: Chronic Qualifiers: Hypertension type: primary hypertension Qualified Code(s): I10 - Essential (primary) hypertension (5) CHF (congestive heart failure) Current Visit: Yes Status: Acute Qualifiers: Heart failure type: unspecified Heart failure chronicity: acute on chronic Qualified Code(s): I50.9 - Heart failure, unspecified - Plan -MRI ordered for morning. Head CT negative -Nephrology consult for HD -Meclizine PRN dizziness -Physical therapy consult -Stool softeners PRN. Constipation/abdominal pain likely secondary to recent opioid use. -Monitor and replete electrolytes per protocol -Reconcile and continue home medications -Heparin for VTE prophylaxis -Full code Discharge Plan: Home Plan to discharge in: 24 Hours - Advance Directives Does patient have a Living Will: No Does patient have a Durable POA for Healthcare: No - Code Status/Comfort Care Code Status Assessed: Yes (Full) Critical Care: No Time Spent Managing Pts Care (In Minutes): 50 <Payton Hamilton - Last Filed: 02/24/22 23:51> Physician Review: Patient Assessed, Agree with Above Assessment and Plan <Vladimir Casey - Last Filed: 02/25/22 18:58>
[2022-02-24] MEDS ORDERED: ACETAMINOPHEN 500 MG TAB PO PRN (22:17)
[2022-02-24] MEDS ORDERED: DOCUSATE NA/SENNA CONC 1 TAB PO PRN (22:17)
[2022-02-24] MEDS: ONDANSETRON 4 MG/2 ML VIAL IV PRN (23:53)
[2022-02-24] MEDS: HYDROCODONE/APAP 5/325 MG TAB PO PRN (23:53)
[2022-02-25] MEDS ORDERED: ONDANSETRON 4 MG/2 ML VIAL ONE (00:06)
[2022-02-25] MEDS ORDERED: HYDROCODONE/APAP 5/325 MG TAB ONE ×2 (00:06→07:48)
[2022-02-25 00:15] VITALS: BMI 38.4
[2022-02-25] MEDS ORDERED: HEPARIN 5000 UNIT/ML 1 ML VIAL ONE ×3 (00:54→09:39)
[2022-02-25] MEDS: HEPARIN 5000 UNIT/ML 1 ML VIAL SQ SCH ×3 (01:00→18:39)
[2022-02-25] MEDS: ALPRAZOLAM 0.5 MG TABLET PO PRN (01:39)
[2022-02-25] MEDS ORDERED: ALPRAZOLAM 0.5 MG TABLET ONE (01:52)
[2022-02-25 02:44] LABS: Absolute Lymphocytes (CBC) 1.7 K/uL (0.7-4.9); Hematocrit 31.9 % (36.0-45.0); Lymphocytes % 20.7 % (15.3-44.8); MCV 94.3 fL (80-100); RBC Red Blood Cell Count 3.38 M/uL (3.86-4.86)
[2022-02-25 03:15] LABS: Magnesium 2.5 mg/dL (1.8-2.4); Phosphorus 3.7 mg/dL (2.5-4.9); Potassium 4.4 mmol/L (3.5-5.1)
[2022-02-25] MEDS: INSULIN -REGULAR HUMAN 50 UNIT/0.5 ML ML SQ SCH ×4 (07:30→21:00)
[2022-02-25] MEDS: HYDROCODONE/APAP 5/325 MG TAB PO PRN (07:40)
[2022-02-25] MEDS ORDERED: PNEUMOCOCCAL VACCINE 0.5 ML IMVAC ONE ×2 (08:00→09:40)
--- NOTE | 2022-02-25 09:17 | P.CNS ---
Date of Consult: 02/25/22 Reason for Consult: ESRD Requesting Physician: Vladimir Casey Chief Complaint: Dizziness, Weakness, ESRD History of Present Illness: Patient is a 67 year old female with history of ESRD on HD MWF, hypertension, CHF, non insulin dependent type 2 diabetes, and obesity who presented to the ED with complaints of dizziness/lightheadedness/incoordination that began yesterday. Patient reports that she can barely walk without feeling like she is going to fall. She last had HD on friday without any complications. Head CT negative. CT abdomen pelvis showed "Mild right-sided hydronephrosis without obstructing calculus identified. This could be from recently passed stone or possibly from inflammatory debris or blood in the ureter. A small ureter mass is possible. There was no abnormal dilatation on the July comparison." Labs without significant abnormalities compared to baseline. She recently had cystoscopy with bladder biopsies with Dr. Elise that have been negative for infection or malignancy. She is also been complaining of severe constipation and abdominal pain. ED provider wishes to admit patient for observation for MRI in the morning. She went to bed Friday night feeling well. She woke up Friday morning with abdominal pain, nausea and an inability to focus. She ate a little bit on Friday. She went to the hospital on Friday for persistent symptoms. She reports double vision at this time. Malaise and weakness. Mild LLE pain. Severe constipation poorly responsive to outpt Lactulose. 15:55 This 67 yrs old Female presents to ER via EMS with complaints of Dizziness. cp 15:55 The patient presents with dizziness, lightheadedness, feeling off balance. Onset: The cp symptoms/episode began/occurred yesterday. Allergies Penicillins Allergy (Severe, Verified 12/27/21 14:04) Anaphylaxis amoxicillin Adverse Reaction (Severe, Verified 12/27/21 14:04) Anaphylaxis levofloxacin Adverse Reaction (Intermediate, Verified 12/27/21 14:04) Headaches Home medications list reviewed: Yes Home Medications: Aspirin Chewable [Aspirin Chewable*] 81 mg PO BEDTIME 05/03/20 Carvedilol [Coreg] 3.125 mg PO BID 05/03/20 Cholecalciferol (Vitamin D3) [Vitamin D3] 1,000 unit PO DAILY 05/03/20 Dialyvite 800 Ultra 1 tab PO BEDTIME 05/03/20 Gabapentin [Neurontin*] 100 mg PO BEDTIME 05/03/20 Glipizide [Glipizide ER] 5 mg PO BID 09/25/21 Lactulose [Kristalose] 20 gm PO DAILYPRN PRN 09/25/21 Sevelamer Carbonate [Renvela*] 800 mg PO TIDWM 09/25/21 Docusate [Colace Cap*] 100 mg PO DAILY 12/27/21 Losartan Potassium [Cozaar] 12.5 mg PO BEDTIME 12/27/21 Smz./Tmp. [Bactrim Ds 800 MG/160 MG] 1 tab PO BID #6 tab 12/31/21 Hydromorphone [Dilaudid] 1 mg PO Q8HP PRN #6 tab 02/05/22 - Past Medical/Surgical History Diabetic: Yes -: HTN -: DM II with CKD & Polyneuropathy -: Metabolic Syndrome. Obesity. -: Dyslipidemia. -: Diastolic CHF -: ESRD (Dr. Retana) -: PAD -: CVD -: Umbilical hernia repair x 2 -: Appendectomy -: Cystoscopy with Bladder Biopsy -: Hysteroscopy with D&C -: AVF Psychosocial/ Personal History: Patient lives at home with her daughter. - Family History Mother Medical History: Diabetes, Kidney disease Father Medical History: Other (see notes) Notes: Brain aneurysm - Social History Alcohol use: No CD- Drugs: No Caffeine use: Yes Place of Residence: Home Review of Systems 10-point ROS is otherwise unremarkable General: Weakness, Malaise Eyes: Vision Change Gastrointestinal: Nausea, Abdominal Pain, Constipation Physical Examination Temp Pulse Resp BP Pulse Ox 97.8 F 66 16 158/75 H 93 02/25/22 07:52 02/25/22 07:52 02/25/22 07:52 02/25/22 07:52 02/25/22 07:52 General: Oriented x3, Mild distress HEENT: Atraumatic Neck: Supple Respiratory: Clear to auscultation bilaterally Cardiovascular: Regular rate/rhythm, Edema Gastrointestinal: Soft and benign, Non-distended Musculoskeletal: No clubbing, No contractures Integumentary: No rashes, No cyanosis Neurological: Normal speech Laboratory Data (last 24 hrs) 02/24/22 16:08: PT 12.4, INR 1.12, APTT 30.9 02/24/22 16:08: WBC 6.80, Hgb 10.8 L, Hct 33.1 L, Plt Count 217 02/24/22 16:08: Sodium 135 L, Potassium 4.6, BUN 58 H, Creatinine 7.08 H*, Glucose 101, Magnesium 2.6 H Imagings Data: EXAM DESCRIPTION: CT - Abdomen Pelvis Wo Contrast - 02/24/2022 8:58 pm CLINICAL HISTORY: abdominal pain/distension COMPARISON: Stone Protocol dated 08/17/2021 TECHNIQUE: Axial [address] imaging of the abdomen and pelvis was performed without IV contrast. No IV contrast was given because of allergy, abnormal renal function, patient refusal or physician request. No contrast administered. All CT scans are performed using dose optimization technique as appropriate and may include automated exposure control or mA/KV adjustment according to patient size. FINDINGS: Lung base scarring and atelectasis changes present. No pericardial effusion. The liver, spleen and pancreas show no suspicious findings on non-contrast imaging. Cholecystectomy clips are present. No abnormal biliary tree dilatation. Mild right-sided hydronephrosis is present to the distal-most ureter. No obstructing or nonobstructing calculi. Right kidney appears edematous relative to the left. No left-sided hydronephrosis. No significant adrenal finding. Isodense renal masses and pyelonephritis cannot be excluded in the absence of IV contrast. Urinary bladder is tightly contracted. No bladder calculi seen. Atrophic uterus and ovaries present. No dilated bowel loops or bowel wall thickening. No suspicion for appendicitis. No acute GI process identifiable. No free air, free fluid or inflammatory stranding. No mass or bulky lymphadenopathy. Inguinal hernias are present containing only fat. Mesh material is in place from prior periumbilical hernia repair. Disc and bone degenerative changes are present. Very dense calcifications of the arterial tree. Pelvic floor laxity is present. There is congestion and edema in the subcutaneous fat of the lower abdomen and pelvis. IMPRESSION: Mild right-sided hydronephrosis without obstructing calculus identified. This could be from recently passed stone or possibly from inflammatory debris or blood in the ureter. A small ureter mass is possible. There was no abnormal dilatation on the July comparison. Isodense masses and pyelonephritis are not excluded on noncontrast study. EXAM DESCRIPTION: CT - Head Brain Wo Cont - 02/24/2022 4:57 pm CLINICAL HISTORY: dizziness COMPARISON: Head C Spine Mpr Wo Con dated 07/10/2020 TECHNIQUE: Axial 5 mm thick images of the head were obtained without IV contrast. All CT scans are performed using dose optimization technique as appropriate and may include automated exposure control or mA/KV adjustment according to patient size. FINDINGS: No intracranial hemorrhage, mass, edema or shift of mid-line structures. No acute infarction changes seen. No abnormal extra-axial fluid collections. Ventricles are normal. Atrophy is minimal. Chronic ischemic changes are mild as well. Mastoid air cells and visualized portions of the paranasal sinuses are clear. No acute bony findings. IMPRESSION: Negative non-contrast CT head examination for acute intracranial finding. . Chronic ischemic changes can mask nonhemorrhagic acute infarction. MR brain followup can be obtained if there is ongoing concern for acute ischemia. Conclusions/Impression: ESRD MWF at [facility] -Acute HD today HTN with CKD/ CHF -Hold antihypertensive at this time -HD today Diastolic CHF, chronic -Low sodium diet -HD with UF today DM II with CKD & Polyneuropathy -RISS Anemia in CKD -Start Retacrit CKD MBD -Start Vitamin D Slow transit constipation -Continue Colace/Senna -Dulcolax X1 -Lactulose prn PAD -Start ASA and Plavix -Start Lipitor Cerebral Vascular Disease Double vision with malaise concerning for a stroke vs Viral labyrinthitis -Start ASA and Plavix -Start Lipitor Case reviewed with Dr. Casey Thank you kindly for the referral.
[2022-02-25] MEDS ORDERED: MANNITOL 25% 12.5 GM/50 ML VIAL IV PRN (09:54)
[2022-02-25] MEDS ORDERED: NA CHLORIDE 0.9% 1,000 ML IV PRN (09:54)
[2022-02-25] MEDS ORDERED: LACTULOSE 20 GM/30 ML UCUP PO PRN (09:57)
[2022-02-25] MEDS ORDERED: VITAMIN D 1000 UNIT TAB ONE (09:58)
[2022-02-25] MEDS ORDERED: ALBUMIN HUMAN 25% 50 ML IV SCH (10:00)
[2022-02-25] MEDS ORDERED: BISACODYL 10 MG RECTAL SUPP PR ONE (10:09)
[2022-02-25] MEDS: VITAMIN D 5,000 UNIT CAP PO SCH (10:09)
[2022-02-25] MEDS: CLOPIDOGREL 75 MG TABLET PO SCH (10:30)
[2022-02-25] MEDS: ASPIRIN EC 81 MG TAB PO SCH (10:30)
[2022-02-25] MEDS ORDERED: ASPIRIN EC 81 MG TAB PO ONE (10:49)
[2022-02-25] MEDS ORDERED: CLOPIDOGREL 75 MG TABLET ONE (10:50)
[2022-02-25] MEDS ORDERED: BISACODYL 10 MG RECTAL SUPP ONE (10:50)
--- NOTE | 2022-02-25 14:09 | EKG ---
Test Date: 2022-02-24 Test Time: 16:25:33 Car Repair Supervisor: JUAN MEASUREMENT RESULTS: Intervals: Rate: 71 HI: 182 QRSD: 116 QT: 418 QTc: 454 [employer]: P: 13 HI: 182 QRS: -31 T: 11 INTERPRETIVE STATEMENTS: Normal sinus rhythm Left axis deviation Possible Anterior infarct, age undetermined Abnormal ECG Compared to ECG 12/27/2021 14:17:00 Myocardial infarct finding now present Left bundle-branch block no longer present Electronically Signed On 02-25-22 14:08:17 CDT by Jay Jay Ruano
[2022-02-25] MEDS: ONDANSETRON 4 MG/2 ML VIAL IV PRN (17:13)
[2022-02-25] MEDS: MECLIZINE HCL 12.5 MG TAB PO PRN (18:39)
--- NOTE | 2022-02-25 18:46 | P.PN ---
Subjective Date of Service: 02/25/22 Chief Complaint: Dizziness, Weakness, ESRD Subjective: No new changes No acute events overnight. She reports significant dizziness and imbalance with ambulation. At rest, she feels that her symptoms are less severe, but continues to report diplopia. Review of Systems 10-point ROS is otherwise unremarkable Eyes: Vision Change (diplopia) Neurological: Incoordination, Other (dizziness) Physical Examination - Vital Signs Temperature: 97.4 F Blood Pressure: 133/59 Pulse: 73 Respirations: 18 Pulse Ox (%): 95 - Physical Exam General: Alert, In no apparent distress, Oriented x3 HEENT: Atraumatic, PERRLA, Mucous membr. moist/pink, EOMI, Sclerae nonicteric Neck: Supple, JVD not distended Respiratory: Clear to auscultation bilaterally, Normal air movement Cardiovascular: No edema, Regular rate/rhythm, Normal S1 S2, No gallops, No rubs, No murmurs Gastrointestinal: Normal bowel sounds, Soft and benign, Non-distended, No tenderness, No rebound, No guarding Musculoskeletal: No clubbing Integumentary: No rashes Neurological: Normal speech, Normal strength at 5/5 x4 extr, Sensation intact, Cranial nerves 3-12 intact (with exception of prominent left-beating nystagmus), Other (No ataxia appreciated on [id number] testing) Assessment And Plan - Plan NIH Stroke Scale 1a. Level of consciousness: 0 - Alert; keenly responsive 1b. LOC questions: 0 - Both questions right 1c. LOC commands: 0 - Performs both tasks 2. Best Gaze: 0 - Normal 3. Visual: 0 - No visual loss 4. Facial Palsy: 0 - Normal symmetry 5a. Motor left arm: 0 - No drift for 10 seconds 5b. Motor right arm: 0 - No drift for 10 seconds 6a. Motor left le - No drift for 5 seconds 6b. Motor right le - No drift for 5 seconds 7. Limb ataxia: 0 - No ataxia 8. Sensory: 0 - Normal; no sensory loss 9. Best Language: 0 - Normal; no aphasia 10. Dysarthria: 0 - Normal 11. Extinction and Inattention: 0 - No abnormality 12. Distal motor function: 0 - No abnormality Total Score: 0 # Acute Dizziness - Evaluate for Posterior Circulation Cerebrovascular Accident - Consulted Neurology - recommendations appreciated - No neurologic deficits on my exam - NIHSS = 0 - q4hr neurochecks - CT head = "Negative non-contrast CT head examination for acute intracranial finding. Chronic ischemic changes can mask nonhemorrhagic acute infarction. MR brain followup can be obtained if there is ongoing concern for acute ischemia." - Ordered MR brain + MRA head/neck - Ordered TTE - PT/OT evaluation requested - Ordered risk profile: - Hgb A1c = pending - Lipid panel = TC 131, TG 235, LDL 39, HDL 45 - TSH = 3.00 - Started aspirin, atorvastatin, folic acid, clopidogrel - Started on DAPT empirically as MRI machine is down today # End-Stage Renal Disease on MWF iHD - Consulted Nephrology and spoke with Dr. Retana - recommendations appreciated - Renally dose medications # Chronic Compensated Congestive Heart Failure # Hypertension - Does not appear to be in an acute CHF exacerbation # Type II Diabetes Mellitus - Ordered Hgb A1c - Correction scale insulin ordered Vladimir Casey M.D.
[2022-02-25] MEDS ORDERED: EPOETIN ALFA 10,000 UNIT/ML VIAL SQ SCH (20:00)
[2022-02-25] MEDS: FOLIC ACID 1 MG TABLET PO SCH (21:00)
[2022-02-25] MEDS: ATORVASTATIN 10 MG TAB PO SCH (21:01)
[2022-02-26] MEDS: MECLIZINE HCL 12.5 MG TAB PO PRN ×2 (00:39→05:05)
[2022-02-26] MEDS: HEPARIN 5000 UNIT/ML 1 ML VIAL SQ SCH ×3 (00:41→16:53)
[2022-02-26] MEDS: ONDANSETRON 4 MG/2 ML VIAL IV PRN ×2 (01:33→04:51)
[2022-02-26] MEDS: INSULIN -REGULAR HUMAN 50 UNIT/0.5 ML ML SQ SCH ×4 (07:30→21:00)
[2022-02-26] MEDS ORDERED: PROMETHAZINE INJ 25 MG/ML AMP IV PRN (08:05)
[2022-02-26] MEDS: MULTIVITAMINS,THERAPEUT 1 TAB PO SCH (08:13)
[2022-02-26] MEDS: CALCITROL 0.25 MCG CAP PO SCH (08:13)
[2022-02-26] MEDS: VITAMIN D 5,000 UNIT CAP PO SCH (08:14)
[2022-02-26] MEDS: CLOPIDOGREL 75 MG TABLET PO SCH (08:14)
[2022-02-26] MEDS: ASPIRIN EC 81 MG TAB PO SCH (08:14)
[2022-02-26] MEDS: FOLIC ACID 1 MG TABLET PO SCH (08:14)
[2022-02-26] MEDS ORDERED: VITAMIN D 5,000 UNIT CAP PO SCH (09:00)
[2022-02-26] MEDS: HYDROCODONE/APAP 5/325 MG TAB PO PRN ×4 (09:08→21:47)
--- NOTE | 2022-02-26 14:41 | ECHO ---
HEIGHT: 5 ft 2 in WEIGHT: 210 lb 0 oz DATE OF STUDY: 02/26/[address]: Vladimir Casey MD 2-DIMENSIONAL: YES M.MODE: YES DOPPLER: YES COLOR FLOW: YES TDS: PORTABLE: YES DEFINITY: BUBBLE STUDY: DIAGNOSIS: STROKE EVALUATION CARDIAC HISTORY: CATHERIZATION: NO SURGERY: NO PROSTHETIC VALVE: NO PACEMAKER: NO MEASUREMENTS (cm) DIASTOLIC (NORMALS) SYSTOLIC (NORMALS) IVSd 1.2 (0.6-1.2) LA Diam 3.7 (1.9-4.0) LVEF 59% LVIDd 4.4 (3.5-5.7) LVIDs 3.0 (2.0-3.5) %FS 31% LVPWd 1.3 (0.6-1.2) Ao Diam 2.7 (2.0-3.7) 2 DIMENSIONAL ASSESSMENT: RIGHT ATRIUM: NORMAL LEFT ATRIUM: NORMAL RIGHT VENTRICLE: NORMAL LEFT VENTRICLE: NORMAL TRICUSPID VALVE: NORMAL MITRAL VALVE: NORMAL PULMONIC VALVE: NORMAL AORTIC VALVE: SEVERELY CALCIFIED PERICARDIAL EFFUSION: NONE AORTIC ROOT: NORMAL LEFT VENTRICULAR WALL MOTION: NORMAL DOPPLER/COLOR FLOW: SEE BELOW COMMENTS: NORMAL LEFT VENTRICULAR EJECTION FRACTION 55-60%. NORMAL WALL MOTION. SEVERE AORTIC VALVE STENOSIS WITH VELOCITY MAX OF 4.08 m/s. TECHNOLOGIST: THAD ADAN
--- NOTE | 2022-02-26 20:23 | P.PN ---
Date of Service: 02/26/22 Vital Signs Temp Pulse Resp BP Pulse Ox 97.8 F 71 18 133/60 96 02/26/22 16:00 02/26/22 16:00 02/26/22 17:39 02/26/22 16:00 02/26/22 17:39 Medications Acetaminophen (Acetaminophen 500 Mg Tab) 500 mg PO Q4HP PRN PRN Reason: Pain scale 2-4 (Mild) Hydrocodone Bitart/Acetaminophen (Hydrocodone/Apap 5/325 Mg Tab) 1 tab PO Q4H PRN PRN Reason: Pain scale 5-7 (Moderate) Last Admin: 02/26/22 17:39 Dose: 1 tab Alprazolam (Alprazolam 0.5 Mg Tablet) 0.5 mg PO BEDTIME PRN PRN Reason: INSOMNIA Last Admin: 02/25/22 01:39 Dose: 0.5 mg Aspirin (Aspirin Ec 81 Mg Tab) 81 mg PO DAILY [facility] Last Admin: 02/26/22 08:14 Dose: 81 mg Atorvastatin Calcium (Atorvastatin 10 Mg Tab) 10 mg PO BEDTIME [facility] Last Admin: 02/25/22 21:01 Dose: 10 mg Calcitriol (Calcitrol 0.25 Mcg Cap) 0.5 mcg PO DAILY [facility] Last Admin: 02/26/22 08:13 Dose: 0.5 mcg Cholecalciferol (Vitamin D 5,000 Unit Cap) 5,000 unit PO DAILY [facility] Last Admin: 02/26/22 08:14 Dose: 5,000 unit Clopidogrel Bisulfate (Clopidogrel 75 Mg Tablet) 75 mg PO DAILY [facility] Last Admin: 02/26/22 08:14 Dose: 75 mg Epoetin Blas (Epoetin Blas 10,000 Unit/Ml Vial) 10,000 unit SQ M,W,F [facility] Last Admin: 02/25/22 20:00 Dose: Not Given Folic Acid (Folic Acid 1 Mg Tablet) 1 mg PO DAILY [facility] Last Admin: 02/26/22 08:14 Dose: 1 mg Heparin Sodium (Porcine) (Heparin 5000 Unit/Ml 1 Ml Vial) 5,000 unit SQ Q8HR [facility] Last Admin: 02/26/22 16:53 Dose: 5,000 unit Heparin Sodium (Porcine) (Heparin 1,000 Unit/Ml Vial) 3,000 unit IV EVERY HD PRN PRN Reason: Prevent Dialysis Lines Clottin Last Admin: 02/25/22 13:01 Dose: 3,000 unit Albumin Human (Albumin 25%) 50 mls @ 100 mls/hr IV EVERY HD [facility] Insulin Human Regular (Insulin -Regular Human 50 Unit/0.5 Ml Ml) 0 unit SQ ACHS [facility]; Protocol Last Admin: 02/26/22 16:30 Dose: Not Given Lactulose (Lactulose 20 Gm/30 Ml Ucup) 20 gm PO BID PRN PRN Reason: CONSTIPATION - 1ST LINE Mannitol (Mannitol 25% 12.5 Gm/50 Ml Vial) 12.5 gm IV EVERY HD PRN PRN Reason: Titrate to SBP (MUST DEFINE) Ondansetron HCl (Ondansetron 4 Mg/2 Ml Vial) 4 mg IV Q6HP PRN PRN Reason: NAUSEA / VOMITING Last Admin: 02/26/22 04:51 Dose: 4 mg Promethazine HCl (Promethazine Inj 25 Mg/Ml Amp) 6.25 mg IV Q6H PRN PRN Reason: NAUSEA / VOMITING Last Admin: 02/26/22 09:08 Dose: 6.25 mg Senna/Docusate Sodium (Docusate Na/Senna Conc 1 Tab) 2 tab PO BEDTIME PRN PRN Reason: CONSTIPATION Sodium Chloride (Flush Normal Saline 10 Ml) 10 ml IV BID [facility] Last Admin: 02/26/22 08:14 Dose: 10 ml Vitamin B Complex/Vit C/Folic Acid (Multivitamins,Therapeut 1 Tab) 1 tab PO DAILY [facility] Last Admin: 02/26/22 08:13 Dose: 1 tab Lab Results (last 24 hrs) 02/26/22 08:24: POC Glucose 113 02/26/22 03:00: Hemoglobin A1c 5.0 02/25/22 20:42: POC Glucose 152 H 02/25/22 17:31: POC Glucose 132 H Assessment/ Plan: Nephrology No dyspnea No chest pain Persistent dizziness and nausea No acute events overnight Vitals, medications, blood work and imaging reviewed in the chart. General: Oriented x3, Mild distress HEENT: Atraumatic Neck: Supple Respiratory: Clear to auscultation bilaterally Cardiovascular: Regular rate/rhythm, Edema Gastrointestinal: Soft and benign, Non-distended Musculoskeletal: No clubbing, No contractures Integumentary: No rashes, No cyanosis Neurological: Normal speech Laboratory Data (last 24 hrs) 02/24/22 16:08: PT 12.4, INR 1.12, APTT 30.9 02/24/22 16:08: WBC 6.80, Hgb 10.8 L, Hct 33.1 L, Plt Count 217 02/24/22 16:08: Sodium 135 L, Potassium 4.6, BUN 58 H, Creatinine 7.08 H*, Glucose 101, Magnesium 2.6 H Imagings Data: EXAM DESCRIPTION: CT - Abdomen Pelvis Wo Contrast - 02/24/2022 8:58 pm CLINICAL HISTORY: abdominal pain/distension COMPARISON: Stone Protocol dated 08/17/2021 TECHNIQUE: Axial [address] imaging of the abdomen and pelvis was performed without IV contrast. No IV contrast was given because of allergy, abnormal renal function, patient refusal or physician request. No contrast administered. All CT scans are performed using dose optimization technique as appropriate and may include automated exposure control or mA/KV adjustment according to patient size. FINDINGS: Lung base scarring and atelectasis changes present. No pericardial effusion. The liver, spleen and pancreas show no suspicious findings on non-contrast imaging. Cholecystectomy clips are present. No abnormal biliary tree dilatation. Mild right-sided hydronephrosis is present to the distal-most ureter. No obstructing or nonobstructing calculi. Right kidney appears edematous relative to the left. No left-sided hydronephrosis. No significant adrenal finding. Isodense renal masses and pyelonephritis cannot be excluded in the absence of IV contrast. Urinary bladder is tightly contracted. No bladder calculi seen. Atrophic uterus and ovaries present. No dilated bowel loops or bowel wall thickening. No suspicion for appendicitis. No acute GI process identifiable. No free air, free fluid or inflammatory stranding. No mass or bulky lymphadenopathy. Inguinal hernias are present containing only fat. Mesh material is in place from prior periumbilical hernia repair. Disc and bone degenerative changes are present. Very dense calcifications of the arterial tree. Pelvic floor laxity is present. There is congestion and edema in the subcutaneous fat of the lower abdomen and pelvis. IMPRESSION: Mild right-sided hydronephrosis without obstructing calculus identified. This could be from recently passed stone or possibly from inflammatory debris or blood in the ureter. A small ureter mass is possible. There was no abnormal dilatation on the July comparison. Isodense masses and pyelonephritis are not excluded on noncontrast study. EXAM DESCRIPTION: CT - Head Brain Wo Cont - 02/24/2022 4:57 pm CLINICAL HISTORY: dizziness COMPARISON: Head C Spine Mpr Wo Con dated 07/10/2020 TECHNIQUE: Axial 5 mm thick images of the head were obtained without IV contrast. All CT scans are performed using dose optimization technique as appropriate and may include automated exposure control or mA/KV adjustment according to patient size. FINDINGS: No intracranial hemorrhage, mass, edema or shift of mid-line structures. No acute infarction changes seen. No abnormal extra-axial fluid collections. Ventricles are normal. Atrophy is minimal. Chronic ischemic changes are mild as well. Mastoid air cells and visualized portions of the paranasal sinuses are clear. No acute bony findings. IMPRESSION: Negative non-contrast CT head examination for acute intracranial finding. . Chronic ischemic changes can mask nonhemorrhagic acute infarction. MR brain followup can be obtained if there is ongoing concern for acute ischemia. Conclusions/Impression: ESRD MWF at [facility] -HD TIW HTN with CKD/ CHF -Hold antihypertensive at this time Diastolic CHF, chronic -Low sodium diet -HD with UF DM II with CKD & Polyneuropathy -RISS Anemia in CKD -Continue Retacrit CKD MBD -Continue Vitamin D Slow transit constipation -Continue Colace/Senna -Lactulose prn PAD -Continue ASA and Plavix -Continue Lipitor Cerebral Vascular Disease Double vision with malaise concerning for a stroke vs Viral labyrinthitis -Continue ASA and Plavix -Continue Lipitor
[2022-02-26] MEDS: ATORVASTATIN 10 MG TAB PO SCH (21:49)
--- NOTE | 2022-02-26 21:55 | CON ---
Date of Consultation: 02/26/2022 Reason For Consultation: Aortic valve stenosis. History Of Present Illness: A 67-year-old female with history of end-stage renal disease, on hemodia lysis Friday, Friday, Friday; hypertension; congestive heart failure; diabetes, presented to the e [facility] room with dizziness, lightheadedness, and there was concern of having a stroke and felt that she is going to fall, but she did not pass out. I saw her by bedside. She has shortness of breath on exertion. No chest pain, and she does not know of any history of problem with aortic valve. Past Medical History: As outlined above in HPI. Medications: Refer reconciliation sheet for detailed list. Allergies: PENICILLIN AND LEVOFLOXACIN. Past Surgical History: Appendectomy, hernia repair, bladder biopsy, and hysteroscopy with D and C. Family History: No coronary artery disease or cancer. Social History: Does not smoke or drink. Does not use any drugs. Review of Systems: All systems reviewed are negative except mentioned in HPI. Physical Examination: Vital Signs: Reviewed. Head and Neck: Pupils are equal, reactive to light. Intact eye movements. No JVD. No cervical lym phadenopathy. Neck: Supple. Thyroid is not enlarged. Lungs: Clear to auscultation bilaterally. No rhonchi, rales, or crackles. No accessory muscle use or muscle retraction. Heart: Regular rate and rhythm. There is aortic systolic ejection murmur. Abdomen: Soft, nontender. Bowel sounds positive. No organomegaly. No masses or hernia. No rigidi ty or rebound. Extremities: No edema, clubbing, cyanosis. Intact pulses. Skin: No rashes. Neurologic: Alert, awake, oriented x3. No acute focal deficits appreciated. Investigations: Her is BUN 54, creatinine 7.6. Hemoglobin is 10.7. Assessment And Recommendation: 1.Aortic valve stenosis. Echo was not the best quality; however, the valve appears to be severely s tenosed. I recommend to do a left and right heart catheterization on her across the aortic valve and get invasive gradient to assess the need for aortic valve replacement. 2.End-stage renal disease, on hemodialysis. 3.Dizziness. This could be due to the significant aortic valve stenosis that she has, which is like ly severe in condition. We will determine this further by doing a left and right heart catheterizati on either tomorrow or early on . /MICHAEL Voice ID: [id number] Report ID: [id number]
--- NOTE | 2022-02-26 22:17 | RAD REPORT ---
EXAM DESCRIPTION: MRI - Brain Wo Cont - 02/26/2022 9:27 pm CLINICAL HISTORY: Dizziness COMPARISON: Head CT February 24, 2022 TECHNIQUE: Axial, sagittal, and coronal magnetic resonance images of the brain were obtained. FINDINGS: No significant abnormal signal within the brain Diffusion-weighted/ADC mapping does not reveal evidence of acute infarction. The ventricles are normal caliber. An extra-axial fluid collection is not noted. Fluid within the sinuses/mastoids is not seen IMPRESSION: No acute intracranial abnormality noted
--- NOTE | 2022-02-26 22:20 | RAD REPORT ---
EXAM DESCRIPTION: MRI - MRA Head Wo Cont - 02/26/2022 9:18 pm CLINICAL HISTORY: Syncope COMPARISON: None. TECHNIQUE: Magnetic resonance angiogram was performed. 3D MIPS reconstruction performed FINDINGS: The anterior cerebral, middle cerebral, posterior cerebral, distal internal carotid and ba silar arteries do not demonstrate a significant stenosis. Distal right vertebral artery terminates into the PICA An aneurysm is not displayed. IMPRESSION: No acute abnormality displayed
--- NOTE | 2022-02-26 22:30 | P.PN ---
Subjective Date of Service: 02/26/22 Chief Complaint: Dizziness, Weakness, ESRD No acute events overnight. She reports no symptoms rest, but continues to have significant dizziness and imbalance with ambulation. TTE returned with severe aortic stenosis. Review of Systems 10-point ROS is otherwise unremarkable Neurological: Other (dizziness, diplopia) Physical Examination - Vital Signs Temperature: 97.2 F Blood Pressure: 147/65 Pulse: 83 Respirations: 18 Pulse Ox (%): 94 Assessment And Plan - Plan Physical Exam General: Alert, In no apparent distress, Oriented x3 HEENT: Atraumatic, PERRLA, Mucous membr. moist/pink, EOMI, Sclerae nonicteric Neck: Supple, JVD not distended Respiratory: Clear to auscultation bilaterally, Normal air movement Cardiovascular: No edema, Regular rate/rhythm, Normal S1 S2, No gallops, No rubs, grade III/ systolic murmur Gastrointestinal: Normal bowel sounds, Soft and benign, Non-distended, No tenderness, No rebound, No guarding Musculoskeletal: No clubbing Integumentary: No rashes Neurological: Normal speech, Normal strength at 5/5 x4 extr, Sensation intact, Cranial nerves 3-12 intact (with exception of prominent left-beating nystagmus), Other (No ataxia appreciated on quacax-zx-tkth testing) Assessment And Plan - Plan NIH Stroke Scale 1a. Level of consciousness: 0 - Alert; keenly responsive 1b. LOC questions: 0 - Both questions right 1c. LOC commands: 0 - Performs both tasks 2. Best Gaze: 0 - Normal 3. Visual: 0 - No visual loss 4. Facial Palsy: 0 - Normal symmetry 5a. Motor left arm: 0 - No drift for 10 seconds 5b. Motor right arm: 0 - No drift for 10 seconds 6a. Motor left le - No drift for 5 seconds 6b. Motor right le - No drift for 5 seconds 7. Limb ataxia: 0 - No ataxia 8. Sensory: 0 - Normal; no sensory loss 9. Best Language: 0 - Normal; no aphasia 10. Dysarthria: 0 - Normal 11. Extinction and Inattention: 0 - No abnormality 12. Distal motor function: 0 - No abnormality Total Score: 0 # Acute Dizziness suspect due to Severe Aortic Stenosis - Consulted Cardiology and spoke with Dr. Ruano - recommendations appreciated - Planning for LHC + RHC in the morning - Consulted Neurology and spoke with Dr. Mtz - recommendations appreciated - No neurologic deficits on my exam - NIHSS = 0 - q4hr neurochecks - CT head = "Negative non-contrast CT head examination for acute intracranial finding. Chronic ischemic changes can mask nonhemorrhagic acute infarction. MR brain followup can be obtained if there is ongoing concern for acute ischemia." - Ordered MR brain = "No acute intracranial abnormality noted" - MRA head = "No acute abnormality displayed" - TTE = "NORMAL LEFT VENTRICULAR EJECTION FRACTION 55-60%. NORMAL WALL MOTION. SEVERE AORTIC VALVE STENOSIS WITH VELOCITY MAX OF 4.08 m/s" - PT/OT evaluation requested - Ordered risk profile: - Hgb A1c = 5.0 % - Lipid panel = TC 131, TG 235, LDL 39, HDL 45 - TSH = 3.00 - Was empirically started on aspirin, atorvastatin, folic acid, clopidogrel - Discontinue folic acid, clopidogrel # End-Stage Renal Disease on MWF iHD - Consulted Nephrology and spoke with Dr. Retana - recommendations appreciated - Renally dose medications # Chronic Compensated Congestive Heart Failure # Hypertension - Does not appear to be in an acute CHF exacerbation # Type II Diabetes Mellitus - Hgb A1c = 5.0 % - Correction scale insulin ordered Vladimir Casey M.D.
[2022-02-27] MEDS: ALPRAZOLAM 0.5 MG TABLET PO PRN ×2 (00:17→23:10)
--- NOTE | 2022-02-27 02:04 | CON ---
Consultation called because of dizziness. History Of Present Illness: Ms. Meredith is a 67-year-old patient with hypertension, diabetes mellitus type 2, end-stage renal disease on hemodialysis Friday, Friday, Friday, dyslipidemia, who comes a t [facility] with vertigo-type symptoms, initially room spinning from dxii-ps-tssma then rig ht-to-left. She said after sitting up or getting up, she was unable to maintain an upright position because of significant vertigo. She had mild nausea, but denied any vomiting. Symptoms, kind of, mi nimize and better if she remain still and would lie back. At [facility], head CT scan showe d no acute ischemic or hemorrhagic findings. Study showed minimal chronic atrophy from small vessel ischemic disease. An echocardiogram showed an ejection fraction 59% and severe aortic valve stenosis . Max velocity noted at 4.08 m/sec. She is being evaluated by the hardwood floor installer and is potentially g oing to have a cardiac procedure to address the aortic valve. Laboratory Studies: Showed a low hemoglobin and hematocrit of around 10.7 to 10.8 and is otherwise e ssentially unremarkable. Coagulation panel unremarkable. Basic metabolic panel did show elevated cr eatinine as expected. Blood sugars did range from 97-152 with hemoglobin A1c of 5.0. Her TSH was 3, HDL 45, LDL 39. Urinalysis unremarkable. COVID-19 test was negative. Past Medical History: Includes congestive heart failure. Past Surgical History: Hernia repair, appendectomy, cystoscopy with bladder biopsy, which was report ed negative, and hysteroscope with D and C. Family History: Diabetes and kidney disease in mother, brain aneurysm in father. Social History: She lives at home with a single family home. No alcohol, tobacco, or IV drug use. Allergies: PENICILLIN, LEVOFLOXACIN, AMOXICILLIN. Medications: Aspirin 81 mg daily, Coreg 3.125 mg twice daily, vitamin D3 1000 units daily, gabapenti n 100 mg at bedtime, glipizide extended release 5 mg twice daily, lactulose 20 g daily, Renvela 800 m g 3 times a day, Colace 100 mg daily, losartan 12.5 mg at bedtime, Dilaudid as needed 1 mg. Review of Systems: She reports of vertigo, which at times room appeared to spin right to left or left to right. She osborn s have mild chest tightness, which is again evaluated by Cardiology. Otherwise, no numbness or weakn ess in the arms, legs. No focal deficits. Physical Examination: Vital Signs: Blood pressure 133/60, pulse 71, respiratory rate 16, temperature 97.8, oxygen saturati on 93% on room air, weight 210 pounds, height 5 feet 2 inches, BMI 38.4. General: Ms. Meredith is resting in bed. She is in no significant distress. HEENT: She appears normocephalic, atraumatic. Sclerae are anicteric. Oropharynx is moist. Neck: Supple. Chest: Clear. Heart: Regular. Extremities: Show no edema or cyanosis. Neurologic: She is alert and oriented to situation, place, and person. Follows commands appropriate ly. Cranial nerves 2 through 12 showed no focal deficits. Motor examination, she does not have any focal weakness in the upper or lower extremities. Sensory exam, stocking-glove loss to light touch a nd temperature. Reflexes depressed. Assessment And Plan: Ms. Meredith is a 67-year-old patient with positional vertigo. She does have mul tiple comorbid conditions and more recently diagnosed with aortic stenosis. She has end-stage renal disease, on hemodialysis. At this point, placed on aortic valve treatment as per Cardiolo gy and she may have meclizine 25 mg every 6 hours as needed for positional vertigo. Next, she may gaytan ve the Amara maneuver performed at some point in the future as a treatment for her positional vertigo . At this point, MRI of the brain is not indicated. She does not have any evidence of an acute ischemic or hemorrhagic stroke. LB/MODL Voice ID: [id number] Report ID: [id number]
[2022-02-27 03:48] LABS: Absolute Lymphocytes (CBC) 1.9 K/uL (0.7-4.9); Hematocrit 31.9 % (36.0-45.0); Lymphocytes % 31.5 % (15.3-44.8); MCV 95.7 fL (80-100); RBC Red Blood Cell Count 3.33 M/uL (3.86-4.86)
[2022-02-27 04:21] LABS: Albumin 3.1 g/dL (3.4-5.0); Bilirubin Total 0.4 mg/dL (0.2-1.0); Magnesium 2.6 mg/dL (1.8-2.4); Phosphorus 4.9 mg/dL (2.5-4.9); Potassium 5.3 mmol/L (3.5-5.1); Protein, Total 6.7 g/dL (6.4-8.2)
[2022-02-27] MEDS: ONDANSETRON 4 MG/2 ML VIAL IV PRN (07:26)
[2022-02-27] MEDS: INSULIN -REGULAR HUMAN 50 UNIT/0.5 ML ML SQ SCH ×4 (07:30→20:40)
[2022-02-27] MEDS ORDERED: LORazepam 2 MG/ML VIAL ONE (07:51)
[2022-02-27] MEDS: ASPIRIN EC 81 MG TAB PO SCH (08:04)
[2022-02-27] MEDS: MULTIVITAMINS,THERAPEUT 1 TAB PO SCH (08:05)
[2022-02-27] MEDS: VITAMIN D 5,000 UNIT CAP PO SCH (08:05)
[2022-02-27] MEDS: CALCITROL 0.25 MCG CAP PO SCH (08:05)
--- NOTE | 2022-02-27 08:23 | RAD REPORT ---
EXAM DESCRIPTION: RAD - Chest Single View - 02/27/2022 8:13 am CLINICAL HISTORY: Possible aspiration Chest pain. COMPARISON: Chest Pa And Lat (2 Views) dated 01/05/2017Chest Pa And Lat (2 Views) dated 12/27/2021; Kristen st Single View dated 05/09/2020; Chest Single View dated 05/03/2020; Chest Single View dated 06/07/2018 FINDINGS: Portable technique limits examination quality. The lungs are underinflated with [id number] atelectasis in the right lung base. The heart is mi ldly enlarged in size. No displaced fractures. IMPRESSION: Underinflated lungs with right lung base atelectasis present.
--- NOTE | 2022-02-27 08:41 | P.PN ---
Date of Service: 02/27/22 Rapid Response called at 07:48 AM for altered mental status. I arrived at bedside shortly after. She was jerking both upper extremities and intermittently following commands. Initially planned for lorazepam for a partial seizure, but her SpO2 dropped to 89 %. She became alert and oriented x 4 to [address], place, time, and situation. On exam, she demonstrated mild dysarthria, but no aphasia. Recent CT and MRI were negative for acute CVA. Initial NIH Stroke Scale 1A. Level of consciousness - 0, alert and keenly responsive 1B. Ask month and age - 0, both questions rights 1C. Blink eyes & squeeze hands - 0, performs both tasks 2. Horizontal extraocular movements - 1, partial right gaze palsy, can be overcome 3. Visual person - 0, no visual loss 4. Facial palsy - 0, normal symmetry 5A. Left arm motor drift - 1, drift, but doesn't hit bed 5B. Right arm motor drift - 1, drift, but doesn't his bed 6A. Left leg motor drift - 0, no drift for 5 seconds 6B. Right leg motor drift - 0, no drift for 5 seconds 7. Limb ataxia - 0, no ataxia 8. Sensation - 2, complete loss, cannot sense being touched at all 9. Language/aphasia - 0, normal, no aphasia 10. Dysarthria - 1, mild-moderate dysarthria; slurring but can be understood 11. Extinction/inattention - 0, no abnormality NIH Stroke Scale = 6 Code Stroke called at 08:18 AM. Chest x-ray ordered to evaluate for aspiration. CT head ordered per protocol. Spoke with Dr. Mtz (Neurology), who will make recommendations regarding tenecteplase after the radiology imaging. I have updated bedside RNAlycia, and propellant charge zone assemblerPaola. - 08:38 AM - received call from Dr. Iraheta (radiology) stating that CT stroke protocol was negative. Repeat NIH Stroke Scale- 08:50 AM 1A. Level of consciousness - 0, alert and keenly responsive 1B. Ask month and age - 0, both questions rights 1C. Blink eyes & squeeze hands - 0, performs both tasks 2. Horizontal extraocular movements - 1, partial right gaze palsy, can be overcome 3. Visual person - 0, no visual loss 4. Facial palsy - 0, normal symmetry 5A. Left arm motor drift - 2, drifts, hits bed 5B. Right arm motor drift - 1, drift, but doesn't his bed 6A. Left leg motor drift - 0, no drift for 5 seconds 6B. Right leg motor drift - 0, no drift for 5 seconds 7. Limb ataxia - 2, ataxia in 2 limbs 8. Sensation - 2, complete loss, cannot sense being touched at all 9. Language/aphasia - 0, normal, no aphasia 10. Dysarthria - 1, mild-moderate dysarthria; slurring but can be understood 11. Extinction/inattention - 0, no abnormality NIH Stroke Scale = [address] Mtz, who recommended proceeding with tenecteplase. Reviewed risks and benefits of tenecteplase with her, her nephew (Mr. Pacheco), her daughter (Ms. Doss), her granddaughter (Ms. Hernandez), and her daughter (Ms. Bowling), who agreed to proceed with tenecteplase. This was given and she was transferred to to ICU for close monitoring and serial neurologic exams. Vladimir Casey M.D.
--- NOTE | 2022-02-27 08:53 | RAD REPORT ---
EXAM DESCRIPTION: CT - Ct Stroke Brain Wo Cont - 02/27/2022 8:41 am CLINICAL HISTORY: Stroke Protocol Headache, drowsiness, CVA symptomology COMPARISON: Head Brain Wo Cont dated 02/24/2022; Head angio dated 05/11/2020 TECHNIQUE: All CT scans are performed using dose optimization technique as appropriate and may inclu de automated exposure control or mA/KV adjustment according to patient size. FINDINGS: No intracranial hemorrhage, hydrocephalus or extra-axial fluid collection.Small old infarc t is seen left insular region, unchanged. Mild brain atrophy with mild chronic microvascular ischemic changes in the periventricular white matter.No areas of brain edema or evidence of midline shift. The paranasal sinuses and mastoids are clear. The calvarium is intact. IMPRESSION: No acute intracranial abnormality. If there is continued clinical concern for CVA, MR imaging of the brain would be recommended. The findings were discussed with Dr Casey on 02/27/2022 at 8:40 a.m. by telephone.
[2022-02-27 08:58] LABS: Hematocrit 32.4 % (36.0-45.0); Lymphocytes % 16.5 % (15.3-44.8); MCV 95.3 fL (80-100); MPV 7.6 fL (7.6-11.3)
[2022-02-27 09:03] LABS: Protime INR 1.16
[2022-02-27] MEDS ORDERED: TENECTEPLASE 50 MG/10 ML VIAL IV STA (09:09)
[2022-02-27 09:15] LABS: Potassium 5.9 mmol/L (3.5-5.1)
--- NOTE | 2022-02-27 12:44 | P.PN ---
Subjective Date of Service: 02/27/22 Chief Complaint: Dizziness, Weakness, ESRD This morning, she developed diffuse shaking and acute neurologic deficits outlined in my Rapid Response note. She was given TNK and transferred to the ICU. Review of Systems 10-point ROS is otherwise unremarkable General: Weakness Neurological: Weakness, Numbness, Incoordination, Change in Speech, As per HPI Physical Examination - Vital Signs Temperature: 96.9 F Blood Pressure: 144/74 Pulse: 88 Respirations: 20 Pulse Ox (%): 95 Assessment And Plan - Plan Physical Exam General: Alert, In no apparent distress, Oriented x3 HEENT: Atraumatic, PERRLA, Mucous membr. moist/pink, EOMI, Sclerae nonicteric Neck: Supple, JVD not distended Respiratory: Clear to auscultation bilaterally, Normal air movement Cardiovascular: No edema, Regular rate/rhythm, Normal S1 S2, No gallops, No rubs, grade III/ systolic murmur Gastrointestinal: Normal bowel sounds, Soft and benign, Non-distended, No tenderness, No rebound, No guarding Musculoskeletal: No clubbing Integumentary: No rashes Neurological: Normal speech, Normal strength at 5/5 x4 extr, but bilateral upper extremity drift present. Sensation not intact in bilateral lower extremities, Cranial nerves 3-12 intact (with exception of right lateral gaze), (Significant ataxia appreciated on dyokmr-ge-esod testing) Assessment And Plan - Plan Repeat NIH Stroke Scale- 08:50 AM 1A. Level of consciousness - 0, alert and keenly responsive 1B. Ask month and age - 0, both questions rights 1C. Blink eyes & squeeze hands - 0, performs both tasks 2. Horizontal extraocular movements - 1, partial right gaze palsy, can be overcome 3. Visual person - 0, no visual loss 4. Facial palsy - 0, normal symmetry 5A. Left arm motor drift - 2, drifts, hits bed 5B. Right arm motor drift - 1, drift, but doesn't his bed 6A. Left leg motor drift - 0, no drift for 5 seconds 6B. Right leg motor drift - 0, no drift for 5 seconds 7. Limb ataxia - 2, ataxia in 2 limbs 8. Sensation - 2, complete loss, cannot sense being touched at all 9. Language/aphasia - 0, normal, no aphasia 10. Dysarthria - 1, mild-moderate dysarthria; slurring but can be understood 11. Extinction/inattention - 0, no abnormality NIH Stroke Scale = 9 # Concern for Acute Cerebrovascular Accident - Consulted Neurology and spoke with Dr. Mtz - recommendations appreciated - Recommended tenecteplase and transfer to ICU - Repeat MRI brain 24 hours after tenecteplase - Last exam - NIHSS = 9 - q1hr neuro checks - Hold dual antiplatelet therapy until MRI completed - PT/OT consulted # Acute Dizziness suspect due to Severe Aortic Stenosis - Consulted Cardiology and spoke with Dr. Ruano - recommendations appreciated - Hold off on LHC + RHC for now - Consulted Neurology and spoke with Dr. Mtz - recommendations appreciated - CT head = "Negative non-contrast CT head examination for acute intracranial finding. Chronic ischemic changes can mask nonhemorrhagic acute infarction. MR brain followup can be obtained if there is ongoing concern for acute ischemia." - Ordered MR brain = "No acute intracranial abnormality noted" - MRA head = "No acute abnormality displayed" - TTE = "NORMAL LEFT VENTRICULAR EJECTION FRACTION 55-60%. NORMAL WALL MOTION. SEVERE AORTIC VALVE STENOSIS WITH VELOCITY MAX OF 4.08 m/s" - PT/OT evaluation requested - Ordered risk profile: - Hgb A1c = 5.0 % - Lipid panel = TC 131, TG 235, LDL 39, HDL 45 - TSH = 3.00 - Was empirically started on aspirin, atorvastatin, folic acid, clopidogrel - Discontinue folic acid, clopidogrel - Hold aspirin # End-Stage Renal Disease on MWF iHD - Consulted Nephrology and spoke with Dr. Retana - recommendations appreciated - Avoid heparin during dialysis given recent TNK - Renally dose medications # Chronic Compensated Congestive Heart Failure # Hypertension - Does not appear to be in an acute CHF exacerbation # Type II Diabetes Mellitus - Hgb A1c = 5.0 % - Correction scale insulin ordered Vladimir Casey M.D.
--- NOTE | 2022-02-27 14:38 | P.PN ---
Nephrology note: (S) Events of this AM noted, pt received TNKase based on change in status and positive NIH score, pt seen several hours later during my rounds was able to c onverse, follow commands but reported a headache, some visual blurriness and diploplia and some Rt UE weakness. Vitals, medications, blood work and imaging reviewed in the chart. General: In mild distress HEENT: Atraumatic, NC, unable to test ocular muscle movements, no nystagmus or fixed gaze noted. No facial muscle weakness noted, tongue midline Neck: Supple Respiratory: Clear to auscultation bilaterally Cardiovascular: Regular rate/rhythm mostly, no sig edema Gastrointestinal: Soft and benign, Non-distended, obese Musculoskeletal: No clubbing, No contractures. Lt UE AVF Integumentary: No rashes, No cyanosis Neurological: Awake, alert, no sig dysathria, some Rt UE weakness. Gait and coordination not tested Laboratory Data (last 24 hrs) Reviewed Conclusions/Impression: ESRD MWF at [facility] -HD today, HD orders amended, see for details Hyperkalemia -Will dialyze with lower 2.0 K bath Dizziness, gait imbalance, other on admission -Possible vestibular toxicity from recent aminoglycoside use/had been on IV Gentamicin on HD for complicated UTI. Neuroimaging w/u thus far had been neg for any acute CVA Can not rule out TIA and with acute symptoms this AM, unclear if CVA related vs other -s/p TNKase, monitor for any complications. Hold heparin on HD, hold SAVANNA products. Avoid hypotension on HD. Anti-platelet management per the primary team, Neuro reccs Aortic stenosis, non rheumatic -Had not been reporting shortness of breath, CP as an OP. Await further Cardiology assessment of gradient across valve, other. DM II with CKD & Polyneuropathy -Management per the primary team Pankaj Huber MD, WILMER
--- NOTE | 2022-02-27 15:10 | PN ---
Date of Progress Note: 02/27/2022 Subjective: The patient is seen by bedside. She is status post CVA and thrombolytics, in ICU being monitored closely. She is doing well, moving all extremities; however, appears to be confused. Francisco tomlinson claimed that she had slurred speech and neglected 1 side of her body earlier, hence she was given t PA. This patient does have significant aortic valve stenosis that we are planning to do further work up on evaluation; however, this was interrupted due to the acute event that she had. Physical Examination: Vital Signs: Temperature is 96.9, pulse 88, breathing 18, blood pressure 144/74, saturating 95%. General: Pleasant middle-aged female, in no apparent distress. Head and Neck: Pupils are equal, reactive to light. Intact eye movements. No JVD. No cervical lym phadenopathy. Neck is supple. Thyroid is not enlarged. Lungs: Clear to auscultation bilaterally. No rhonchi, wheezing, or crackles. No accessory muscle u se. Heart: Regular rate and rhythm. No extra sounds. Abdomen: Soft, nontender. Bowel sounds positive. No organomegaly. No masses or hernia. No rigidi ty or rebound. Extremities: No clubbing or cyanosis. Intact pulses. Skin: No rash. Neurologic: She is alert and awake, but confusion; however, moving all extremities. Unable to perfo rm further exam due to mental status. Lymph Nodes: No cervical or axillary lymphadenopathy. Investigations: BUN is 60, creatinine 7.8. NT-proBNP was 23,196. Assessment And Recommendations: 1.Aortic valve stenosis that needs further workup, plan for left and right heart catheterization; ho wever, there was a recent stroke that happened, so we will hold up the workup until the patient is cl inically and hemodynamically stable from the Neurology standpoint. 2.Acute cerebrovascular accident. Obtain carotid Doppler please. Echo was done earlier and unlikel y to be a source of embolization unless it is coming from the calcified aortic valve. At this point, the patient is clinically and he modynamically stable. SR/MODL Voice ID: [id number] Report ID: [id number]
[2022-02-27] MEDS: ATORVASTATIN 10 MG TAB PO SCH (20:39)
[2022-02-27] MEDS: HYDROCODONE/APAP 5/325 MG TAB PO PRN (21:27)
--- NOTE | 2022-02-28 01:46 | PN ---
Subjective: Ms. Meredith is in ICU. She is in no acute distress. She is regaining function in the ri ght upper extremity in terms of sensation, strength along with her articulation and her ability to ex press herself appropriately. She has no new complaints. She did receive TNKs after sudden change, w hich consisted of slurred speech and expressive aphasia and right-sided weakness and numbness. TNK w as given when NIH score scale was worse at around 10, and she had a negative head CT scan once TNK wa s given, and NIH stroke scale at the time of my evaluation was around 4. She did have some neglect o f the right face and arm, and actually did have dysesthesias to light touch, but was able to identify pinpricks on the right arm and face. She had subtle weakness, but no shayla drift and her articulati on improved. The content of her ability to express herself and identify pictures was intact. Objective: VITAL SIGNS: Blood pressure 137/51, pulse 72, respiratory rate 12 to 17, temperature 97. 5, oxygen saturation 100%. GENERAL: Ms. Meredith is resting in the ICU bed and in no significant distress. HEENT: As noted, she has no obvious asymmetry of the face. There is decreased light touch of the ri ght compared to left face. Tongue protrudes in the midline. NEUROLOGIC: Motor Examination: Has subtle right upper extremity weakness compared to the left side, but able to reach the arm fully up and no significant drift. Right lower extremity intact and left lower extremity. Sensation decreased on the right compared to the left upper extremity. Coordinatio n: There is slight dysmetria on the right compared to the left upper extremity. Reflexes symmetric. Laboratory Studies: Complete blood count differential shows white blood cell 6.0. Hemoglobin 10.7. Her potassium earlier today was 5.9, creatinine 7.83. She is on hemodialysis Friday, Friday, Fri, as she does have end-stage renal disease. Blood sugars range from 78 to 122, calcium 8.5. Assessment: Ms. Meredith is a 67-year-old patient with a recent possible stroke. She has had TNK and is returning to a good baseline. Her brain MRI done yesterday identified no acute ischemic or hemorr hagic change. A repeat CT scan done at 8 o'clock this morning just prior to receiving TNK showed no acute ischemic or hemorrhagic change. There was mild chronic small-vessel ischemic disease. Plan: 1.We will resume antiplatelet treatment 24 hours after TNK. 2.She has severe aortic stenosis, which is managed by Dr. Ruano, Cardiology. 3.We will allow for mild permissive hypertension. She now has around 130s up to 140s systolic blood pressure, may hold that for at least the next week and then gingerly try to get down to the 120s. 4.She is doing very well in terms of recovery, but may do even better with Physical Therapy and outp atient may be appropriate. ANGELA/MICHAEL Voice ID: [id number] Report ID: [id number]
[2022-02-28 04:57] LABS: Hematocrit 26.3 % (36.0-45.0); Lymphocytes % 20.8 % (15.3-44.8); MCV 94.6 fL (80-100); RBC Red Blood Cell Count 2.78 M/uL (3.86-4.86)
[2022-02-28 05:24] LABS: Magnesium 2.3 mg/dL (1.8-2.4); Potassium 4.4 mmol/L (3.5-5.1)
[2022-02-28] MEDS: INSULIN -REGULAR HUMAN 50 UNIT/0.5 ML ML SQ SCH ×4 (07:30→21:00)
[2022-02-28] MEDS: CALCITROL 0.25 MCG CAP PO SCH (09:12)
[2022-02-28] MEDS: VITAMIN D 5,000 UNIT CAP PO SCH (09:12)
[2022-02-28] MEDS: MULTIVITAMINS,THERAPEUT 1 TAB PO SCH (09:12)
--- NOTE | 2022-02-28 11:19 | P.PN ---
Nephrology note: (S) Pt this AM remains in the ICU, cont to report some double vision and Rt UE weakness, otherwise remains hemodynamically stable. Plan for MRI brain wo con trast discussed with Dr. Casey. Neurology note reviewed Vitals, medications, blood work and imaging reviewed in the chart. General: In mild distress HEENT: Atraumatic, NC, EOMI, no nystagmus or fixed gaze noted Respiratory: Clear to auscultation bilaterally Cardiovascular: Regular rate/rhythm mostly, no sig edema Gastrointestinal: Soft and benign, Non-distended, obese Musculoskeletal: No clubbing, No contractures. Lt UE AVF Integumentary: No rashes, No cyanosis Neurological: Awake, alert, no sig dysathria of speech, some Rt UE weakness. Gait and coordination not tested Laboratory Data (last 24 hrs) Reviewed Conclusions/Impression: ESRD MWF at [facility] -HD performed yesterday, tolerated session. Metab profile acceptable Hyperkalemia -Resolved post HD Dizziness, gait imbalance, other on admission -Initially postulated possible vestibular toxicity from recent aminoglycoside use/had been on IV Gentamicin on HD for complicated UTI. Multiple neuroimaging on admission had been neg for any acute CVA but pt had acute change in status on 02/27 AM. Possible initial TIA episodes followed by CVA vs other -s/p TNKase, monitor for any complications. Held heparin on HD, hold SAVANNA products. Avoid hypotension on HD. Allowing for permissive HTN Anti-platelet management per the primary team, Neuro reccs Aortic stenosis, non rheumatic -Had not been reporting shortness of breath, CP as an OP. Await further Cardiology assessment of gradient across valve, other. DM II with CKD & Polyneuropathy -Management per the primary team Pankaj Huber MD, WILMER
--- NOTE | 2022-02-28 11:40 | RAD REPORT ---
EXAM DESCRIPTION: MRI - Brain Wo Cont - 02/28/2022 11:20 am CLINICAL HISTORY: s/p TNK infusion COMPARISON: Brain Wo Cont dated 02/26/2022; MRA Head Wo Cont dated 02/26/2022; Brain Wo Cont dated 03/2020; Ct Stroke Brain Wo Cont dated 02/27/2022 TECHNIQUE: Sagittal T1-weighted images were obtained along with PD/heavily T2-weighted and T2-FLAIR images. Axial DWI and ADC mapping sequences were also obtained along with coronal heavily T2-weighted images were obtained. FINDINGS: No intracranial hemorrhage, mass or acute infarction. There is no edema or shift of midlin e structures. No extra-axial fluid collections. Signal voids are seen as a normal finding in the chalino r intracranial vessels. Mild chronic small vessel ischemic changes. Small left mucous retention cysts in the left maxillary sinus. IMPRESSION: No acute intracranial abnormality. Specifically, no evidence of acute infarct.
[2022-02-28] MEDS: ONDANSETRON 4 MG/2 ML VIAL IV PRN (16:30)
[2022-02-28] MEDS: PROMETHAZINE INJ 25 MG/ML AMP IV PRN (17:00)
--- NOTE | 2022-02-28 20:22 | PN ---
Date of Progress Note: 02/28/2022 Subjective: Seen by bedside, doing clinically well. Review of Systems: No chest pain, shortness of breath, orthopnea, cough. No nausea, vomiting, or diarrhea. All other s ystems reviewed and they were negative. She appears to be still confused slightly. Physical Examination: Vital Signs: Temperature is 98.4, pulse 76, breathing at 14, blood pressure 153/57, saturating 96% o n room air. General: Pleasant, middle-aged female, in no apparent distress. Head And Neck: Pupils are equal, reactive to light. Intact eye movements. No JVD. No cervical lym phadenopathy. Neck is supple. Thyroid is not enlarged. Lungs: Clear to auscultation bilaterally. No rhonchi, wheezing, or crackles. No accessory muscle u se. Heart: Regular rate and rhythm. No extra sounds. Abdomen: Soft and nontender. Bowel sounds positive. No organomegaly. No masses or hernia. No rig idity or rebound. Extremities: No edema, clubbing, or cyanosis. Intact pulses. Skin: No rash. Neurologic: Alert, awake, oriented x3. No acute focal deficits appreciated. Investigations: Labs are reviewed. Assessment And Recommendations: 1.Aortic valve stenosis. She will need a workup; however, once her neurological status is controlle d, so we will hold off on left and right heart catheterization and we will plan to do it sometimes ne xt week. If the patient gets released, this will be arranged for as an outpatient. 2.Hypertension. Blood pressure is acceptable. The fact that she had recent stroke her blood pressu re will be acceptable for now. /MICHAEL Voice ID: [id number] Report ID: [id number]
[2022-02-28] MEDS: ATORVASTATIN 10 MG TAB PO SCH (21:17)
--- NOTE | 2022-02-28 23:01 | P.PN ---
Subjective Date of Service: 02/28/22 Chief Complaint: Dizziness, Weakness, ESRD She is doing well this morning. She reports significant improvements in her symptoms compared to yesterday, but endorses persistent right-sided deficits. Review of Systems 10-point ROS is otherwise unremarkable Neurological: Weakness (right-sided) Physical Examination - Vital Signs Temperature: 98.1 F Blood Pressure: 140/48 Pulse: 77 Respirations: 15 Pulse Ox (%): 96 Assessment And Plan - Plan Physical Exam General: Alert, In no apparent distress, Oriented x3 HEENT: Atraumatic, PERRLA, Mucous membr. moist/pink, EOMI, Sclerae nonicteric Neck: Supple, JVD not distended Respiratory: Clear to auscultation bilaterally, Normal air movement Cardiovascular: No edema, Regular rate/rhythm, Normal S1 S2, No gallops, No rubs, grade III/ systolic murmur Gastrointestinal: Normal bowel sounds, Soft and benign, Non-distended, No tenderness, No rebound, No guarding Musculoskeletal: No clubbing Integumentary: No rashes Neurological: Normal speech, Normal strength at 5/5 LUE/LLE extr, 3/5 RLE, 4/5 RUE. Sensation not intact in RLEs, Cranial nerves 3-12 intact Assessment And Plan - Plan 1A. Level of consciousness - 0, alert and keenly responsive 1B. Ask month and age - 0, both questions rights 1C. Blink eyes & squeeze hands - 0, performs both tasks 2. Horizontal extraocular movements - 0, Normal gaze 3. Visual person - 0, no visual loss 4. Facial palsy - 0, normal symmetry 5A. Left arm motor drift - 0, No drift for 10 seconds 5B. Right arm motor drift - 1, Drift, but doesn't his bed 6A. Left leg motor drift - 0, No drift for 5 seconds 6B. Right leg motor drift - 2, Some effort against gravity 7. Limb ataxia - 0, no ataxia 8. Sensation - 2, complete loss, cannot sense being touched at all (right) 9. Language/aphasia - 0, normal, no aphasia 10. Dysarthria - 0, no dysarthria 11. Extinction/inattention - 0, no abnormality NIH Stroke Scale = 5 # Concern for Acute Cerebrovascular Accident - Consulted Neurology and spoke with Dr. Mtz - recommendations appreciated - Recommended tenecteplase and transfer to ICU - Repeat MRI brain 24 hours after tenecteplase - today ~ 10:00 AM - Per Neurology, restart aspirin + clopidogrel if MRI negative for intracranial bleed - Last exam - NIHSS = 5 - q1hr neuro checks - Hold dual antiplatelet therapy until MRI completed - PT/OT consulted # Acute Dizziness suspect due to Severe Aortic Stenosis - Consulted Cardiology and spoke with Dr. Ruano - recommendations appreciated - Hold off on LHC + RHC for now - Consulted Neurology and spoke with Dr. Mtz - recommendations appreciated - CT head = "Negative non-contrast CT head examination for acute intracranial finding. Chronic ischemic changes can mask nonhemorrhagic acute infarction. MR brain followup can be obtained if there is ongoing concern for acute ischemia." - MR brain = "No acute intracranial abnormality noted" - MRA head = "No acute abnormality displayed" - TTE = "NORMAL LEFT VENTRICULAR EJECTION FRACTION 55-60%. NORMAL WALL MOTION. SEVERE AORTIC VALVE STENOSIS WITH VELOCITY MAX OF 4.08 m/s" - PT/OT evaluation requested - Ordered risk profile: - Hgb A1c = 5.0 % - Lipid panel = TC 131, TG 235, LDL 39, HDL 45 - TSH = 3.00 - Was empirically started on aspirin, atorvastatin, folic acid, clopidogrel - Discontinue folic acid, clopidogrel - Hold aspirin # End-Stage Renal Disease on MWF iHD - Consulted Nephrology and spoke with Dr. Retana - recommendations appreciated - Avoid heparin during dialysis given recent TNK - Renally dose medications # Chronic Compensated Congestive Heart Failure # Hypertension - Does not appear to be in an acute CHF exacerbation # Type II Diabetes Mellitus - Hgb A1c = 5.0 % - Correction scale insulin ordered Vladimir Casey M.D.
[2022-03-01 05:35] LABS: Absolute Lymphocytes (CBC) 1.3 K/uL (0.7-4.9); Lymphocytes % 23.9 % (15.3-44.8); MCV 93.3 fL (80-100); MPV 8.1 fL (7.6-11.3); RBC Red Blood Cell Count 2.79 M/uL (3.86-4.86)
[2022-03-01 05:53] LABS: Magnesium 2.4 mg/dL (1.8-2.4); Potassium 5.3 mmol/L (3.5-5.1)
[2022-03-01] MEDS: INSULIN -REGULAR HUMAN 50 UNIT/0.5 ML ML SQ SCH ×4 (07:30→21:00)
[2022-03-01] MEDS: MULTIVITAMINS,THERAPEUT 1 TAB PO SCH (08:19)
[2022-03-01] MEDS: CALCITROL 0.25 MCG CAP PO SCH (08:19)
[2022-03-01] MEDS: VITAMIN D 5,000 UNIT CAP PO SCH (08:20)
--- NOTE | 2022-03-01 11:44 | P.PN ---
Nephrology note: (S) Pt slowly improving, MRI report reviewed, pt reports concern over not having a BM or UOP in a few days, while oliguric, she reports typically have some urine trickle out daily or a few times a day at home. Vitals, medications, blood work and imaging reviewed in the chart. General: In mild distress HEENT: Atraumatic, NC, EOMI, no nystagmus or fixed gaze noted Respiratory: Clear to auscultation bilaterally Cardiovascular: Regular rate/rhythm mostly, no sig edema Gastrointestinal: Soft and benign, Non-distended, obese Musculoskeletal: No clubbing, No contractures. Lt UE AVF Integumentary: No rashes, No cyanosis Neurological: Awake, alert, no sig dysathria of speech, some Rt UE weakness. Gait and coordination not tested Laboratory Data (last 24 hrs) Reviewed Conclusions/Impression: ESRD MWF at [facility] -HD performed last on Fri, HD today. Hyperkalemia -Dialyze with low K bath Dizziness, gait imbalance, other on admission followed by other neurologic symptoms/complaints -Initially postulated possible vestibular toxicity from recent aminoglycoside use/had been on IV Gentamicin on HD for complicated UTI. Multiple neuroimaging on admission had been neg for any acute CVA but pt had acute change in status on 02/27 AM. Possible initial TIA episodes followed by CVA vs other -s/p TNKase, monitor for any complications. Held heparin on HD, hold SAVANNA products. Avoid hypotension on HD. Allowed for permissive HTN. Repeat MRI neg for evidence of acute CVA. Anti-platelet management per the primary team, Neuro reccs. Reported symptoms, exam improving slowly Aortic stenosis, non rheumatic -Had not been reporting shortness of breath, CP as an OP. Await further Cardiology assessment of gradient across valve, other. DM II with CKD & Polyneuropathy -Management per the primary team Pankaj Huber MD, WILMER
--- NOTE | 2022-03-01 12:37 | P.PN ---
Subjective Date of Service: 03/01/22 Chief Complaint: Dizziness, Weakness, ESRD She is doing well this morning. She reports that her right-sided numbness has resolved, but she continues to have some right-sided weakness. Review of Systems 10-point ROS is otherwise unremarkable Neurological: Weakness (right-sided) Physical Examination - Vital Signs Temperature: 97.9 F Blood Pressure: 154/55 Pulse: 77 Respirations: 15 Pulse Ox (%): 95 Assessment And Plan - Plan Physical Exam General: Alert, In no apparent distress, Oriented x3 HEENT: Atraumatic, PERRLA, Mucous membr. moist/pink, EOMI, Sclerae nonicteric Neck: Supple, JVD not distended Respiratory: Clear to auscultation bilaterally, Normal air movement Cardiovascular: No edema, Regular rate/rhythm, Normal S1 S2, No gallops, No rubs, grade III/ systolic murmur Gastrointestinal: Normal bowel sounds, Soft and benign, Non-distended, No tenderness, No rebound, No guarding Musculoskeletal: No clubbing Integumentary: No rashes Neurological: Normal speech, Normal strength at 5/5 LUE/LLE extr, 3/5 RLE, 4/5 RUE. Sensation not intact in RLEs, Cranial nerves 3-12 intact Assessment And Plan - Plan 1A. Level of consciousness - 0, alert and keenly responsive 1B. Ask month and age - 0, both questions rights 1C. Blink eyes & squeeze hands - 0, performs both tasks 2. Horizontal extraocular movements - 0, Normal gaze 3. Visual person - 0, no visual loss 4. Facial palsy - 0, normal symmetry 5A. Left arm motor drift - 0, No drift for 10 seconds 5B. Right arm motor drift - 1, Drift, but doesn't his bed 6A. Left leg motor drift - 0, No drift for 5 seconds 6B. Right leg motor drift - 2, Some effort against gravity 7. Limb ataxia - 0, no ataxia 8. Sensation - 0 - no deficit 9. Language/aphasia - 0, normal, no aphasia 10. Dysarthria - 0, no dysarthria 11. Extinction/inattention - 0, no abnormality NIH Stroke Scale = 3 # Concern for Acute Cerebrovascular Accident - Consulted Neurology and spoke with Dr. Mtz - recommendations appreciated - Recommended tenecteplase and transfer to ICU - Repeat MRI brain = "no acute intracranial abnormality. Specifically, no evidence of acute infarct" - Per Neurology, restart aspirin + clopidogrel if MRI negative for intracranial bleed - Last exam - NIHSS = 3 - q4hr neuro checks - PT/OT consulted # Acute Dizziness suspect due to Severe Aortic Stenosis - Consulted Cardiology and spoke with Dr. Ruano - recommendations appreciated - Hold off on LHC + RHC for now - Consulted Neurology and spoke with Dr. Mtz - recommendations appreciated - CT head = "Negative non-contrast CT head examination for acute intracranial finding. Chronic ischemic changes can mask nonhemorrhagic acute infarction. MR brain followup can be obtained if there is ongoing concern for acute ischemia." - MR brain = "No acute intracranial abnormality noted" - MRA head = "No acute abnormality displayed" - TTE = "NORMAL LEFT VENTRICULAR EJECTION FRACTION 55-60%. NORMAL WALL MOTION. SEVERE AORTIC VALVE STENOSIS WITH VELOCITY MAX OF 4.08 m/s" - PT/OT evaluation requested - Ordered risk profile: - Hgb A1c = 5.0 % - Lipid panel = TC 131, TG 235, LDL 39, HDL 45 - TSH = 3.00 - Continue aspirin, atorvastatin, folic acid, clopidogrel # End-Stage Renal Disease on MWF iHD - Consulted Nephrology and spoke with Dr. Retana - recommendations appreciated - Avoid heparin during dialysis given recent TNK - Renally dose medications # Chronic Compensated Congestive Heart Failure # Hypertension - Does not appear to be in an acute CHF exacerbation # Type II Diabetes Mellitus - Hgb A1c = 5.0 % - Correction scale insulin ordered Vladimir Casey M.D.
--- NOTE | 2022-03-01 13:22 | PN ---
Date of Progress Note: 03/01/2022 Subjective: Ms. Meredith has been followed for end-stage renal disease, dizziness, but has improved ne urologically. She has not had any significant changes. Physical Examination: Vital Signs: Stable. She is afebrile. She is in a sinus rhythm. Chest: Clear. Cardiac: Revealed aortic stenosis. Diagnostic Data: Hemoglobin is 8, creatinine is 5.0, potassium is 4.4. Impression And Plan: Aortic stenosis, needs a right heart catheterization as an outpatient eventuall y once her neurological status improves. Her hypertension is stable. Her dyslipidemia is stable on Lipitor. Continue present regimen. I will sign off her case. We will see her as an outpatient even tually. NB/MODL Voice ID: [id number] Report ID: [id number]
[2022-03-01] MEDS: ONDANSETRON 4 MG/2 ML VIAL IV PRN ×2 (14:22→23:45)
--- NOTE | 2022-03-01 16:10 | RAD REPORT ---
EXAM DESCRIPTION: US - Urinary Bladder - 03/01/2022 3:44 pm CLINICAL HISTORY: Eval for retention of urine COMPARISON: Vent Perfusion VQ Scan dated 06/08/2018 FINDINGS: No gross abnormalities of the bladder identified though the bladder was decompressed. Pre-void bladder volume: 4 mL Post-void residual volume: Not measured as the patient was unable to void. IMPRESSION: The bladder was nearly completely decompressed with volume of 4 mL. The patient was unab le to void.
[2022-03-01] MEDS: ASPIRIN 81 MG CHEWABLE TABLET PO SCH (21:00)
[2022-03-01] MEDS: ATORVASTATIN 10 MG TAB PO SCH (21:36)
[2022-03-01] MEDS: HYDROCODONE/APAP 5/325 MG TAB PO PRN (23:45)
[2022-03-02] MEDS: HYDROCODONE/APAP 5/325 MG TAB PO PRN (05:41)
[2022-03-02] MEDS: ONDANSETRON 4 MG/2 ML VIAL IV PRN (05:41)
[2022-03-02] MEDS: INSULIN -REGULAR HUMAN 50 UNIT/0.5 ML ML SQ SCH ×4 (07:30→21:00)
[2022-03-02 07:50] LABS: Absolute Lymphocytes (CBC) 0.9 K/uL (0.7-4.9); Hematocrit 24.9 % (36.0-45.0); Lymphocytes % 19.3 % (15.3-44.8); MCV 93.6 fL (80-100); MPV 8.5 fL (7.6-11.3); RBC Red Blood Cell Count 2.66 M/uL (3.86-4.86)
[2022-03-02] MEDS: MULTIVITAMINS,THERAPEUT 1 TAB PO SCH (07:51)
[2022-03-02] MEDS: VITAMIN D 5,000 UNIT CAP PO SCH (07:51)
[2022-03-02] MEDS: CALCITROL 0.25 MCG CAP PO SCH (07:51)
[2022-03-02] MEDS: PROMETHAZINE INJ 25 MG/ML AMP IV PRN (07:52)
[2022-03-02 08:06] LABS: Potassium 4.3 mmol/L (3.5-5.1)
--- NOTE | 2022-03-02 12:48 | P.PN ---
Subjective Date of Service: 03/02/22 Chief Complaint: Dizziness, Weakness, ESRD No acute events overnight. She reports some mild persistent right-sided weakness. This morning, she reports that she has been experiencing significant nausea with meals. However, the promethazine has helped her significantly. Review of Systems 10-point ROS is otherwise unremarkable Gastrointestinal: Nausea Neurological: Weakness (right-sided) Physical Examination - Vital Signs Temperature: 97.3 F Blood Pressure: 158/69 Pulse: 79 Respirations: 18 Pulse Ox (%): 95 Assessment And Plan - Plan Physical Exam General: Alert, In no apparent distress, Oriented x3 HEENT: Atraumatic, PERRLA, Mucous membr. moist/pink, EOMI, Sclerae nonicteric Neck: Supple, JVD not distended Respiratory: Clear to auscultation bilaterally, Normal air movement Cardiovascular: No edema, Regular rate/rhythm, Normal S1 S2, No gallops, No rubs, grade III/ systolic murmur Gastrointestinal: Normal bowel sounds, Soft and benign, Non-distended, No tenderness, No rebound, No guarding Musculoskeletal: No clubbing Integumentary: No rashes Neurological: Normal speech, Normal strength at 5/5 LUE/LLE extr, 3/5 RLE, 4+/5 RUE. Cranial nerves 3-12 intact Assessment And Plan - Plan 1A. Level of consciousness - 0, alert and keenly responsive 1B. Ask month and age - 0, both questions rights 1C. Blink eyes & squeeze hands - 0, performs both tasks 2. Horizontal extraocular movements - 0, Normal gaze 3. Visual person - 0, no visual loss 4. Facial palsy - 0, normal symmetry 5A. Left arm motor drift - 0, No drift for 10 seconds 5B. Right arm motor drift - 1, Drift, but doesn't his bed 6A. Left leg motor drift - 0, No drift for 5 seconds 6B. Right leg motor drift - 2, Some effort against gravity 7. Limb ataxia - 0, no ataxia 8. Sensation - 0 - no deficit 9. Language/aphasia - 0, normal, no aphasia 10. Dysarthria - 0, no dysarthria 11. Extinction/inattention - 0, no abnormality NIH Stroke Scale = 3 # Concern for Acute Cerebrovascular Accident vs Transient Ischemic Attack - Consulted Neurology and spoke with Dr. Mtz - recommendations appreciated - Recommended tenecteplase and transfer to ICU - Repeat MRI brain = "no acute intracranial abnormality. Specifically, no evidence of acute infarct" - Per Neurology, restarted aspirin + clopidogrel - Last exam - NIHSS = 3 - q4hr neuro checks - PT/OT consulted # Acute Dizziness suspect due to Severe Aortic Stenosis - Consulted Cardiology and spoke with Dr. Ruano - recommendations appreciated - Held off on pre- evaluation with LHC + RHC given tenecteplase administration - Will revisit topic with Dr. Ruano when available - Consulted Neurology and spoke with Dr. Mtz - recommendations appreciated - CT head = "Negative non-contrast CT head examination for acute intracranial finding. Chronic ischemic changes can mask nonhemorrhagic acute infarction. MR brain followup can be obtained if there is ongoing concern for acute ischemia." - MR brain = "No acute intracranial abnormality noted" - MRA head = "No acute abnormality displayed" - TTE = "NORMAL LEFT VENTRICULAR EJECTION FRACTION 55-60%. NORMAL WALL MOTION. SEVERE AORTIC VALVE STENOSIS WITH VELOCITY MAX OF 4.08 m/s" - PT/OT evaluation requested - Ordered risk profile: - Hgb A1c = 5.0 % - Lipid panel = TC 131, TG 235, LDL 39, HDL 45 - TSH = 3.00 - Continue aspirin, atorvastatin, folic acid, clopidogrel # End-Stage Renal Disease on MWF iHD - Consulted Nephrology and spoke with Dr. Huber - recommendations appreciated - Renally dose medications # Chronic Compensated Congestive Heart Failure # Hypertension - Does not appear to be in an acute CHF exacerbation # Type II Diabetes Mellitus - Hgb A1c = 5.0 % - Correction scale insulin ordered Vladimir Casey M.D.
[2022-03-02] MEDS: carvediloL 3.125 MG TAB PO SCH ×2 (15:17→20:50)
[2022-03-02] MEDS ORDERED: LOSARTAN POTASSIUM 50 MG TABLET PO SCH (15:30)
--- NOTE | 2022-03-02 19:04 | PN ---
Date of Progress Note: 03/02/2022 Subjective: Patient was seen and examined at bedside. She states that her weakness in her legs are improving at this time. She was able to work with physical therapy. Objective: Vital Signs: Have been reviewed and are stable. General: She appears in no acute distress. Lungs: Clear to auscultation. Abdomen: Soft and nontender. Right upper and lower extremity with some hemiparesis noted. Impression: 1.End-stage renal disease, on dialysis. 2.Right hemiparesis, likely secondary to stroke versus neurotoxicity from gentamicin. 3.Hypertension. 4.Anemia secondary to chronic disease. Plan: Overall, patient is doing okay. She is on Friday, Friday, Friday dialysis schedule. Angel mikee physical therapy for her weakness. Anemia is overall stable. Laboratory Data: Has been reviewed today. Current Medications: Have been reviewed. ABDIRIZAK/MODL Voice ID: [id number] Report ID: [id number]
[2022-03-02] MEDS: ASPIRIN 81 MG CHEWABLE TABLET PO SCH (21:00)
[2022-03-02] MEDS: ATORVASTATIN 10 MG TAB PO SCH (21:00)
[2022-03-02 22:28] VITALS: O2SAT 96
[2022-03-03] MEDS: carvediloL 3.125 MG TAB PO SCH (05:34)
[2022-03-03] MEDS: PROMETHAZINE INJ 25 MG/ML AMP IV PRN ×2 (05:37→11:06)
[2022-03-03 06:42] LABS: Potassium 4.8 mmol/L (3.5-5.1)
[2022-03-03] MEDS: INSULIN -REGULAR HUMAN 50 UNIT/0.5 ML ML SQ SCH ×2 (07:11→11:30)
[2022-03-03] MEDS: MULTIVITAMINS,THERAPEUT 1 TAB PO SCH (09:13)
[2022-03-03] MEDS: CALCITROL 0.25 MCG CAP PO SCH (09:13)
[2022-03-03] MEDS: VITAMIN D 5,000 UNIT CAP PO SCH (09:13)
--- NOTE | 2022-03-03 10:58 | P.DS ---
Admission Date: 02/26/22 Discharge Date: 03/03/22 Disposition: ROUTINE DISCHARGE Discharge Condition: GOOD Reason for Admission: Dizziness, Weakness, ESRD Consultations: 1. Nephrology 2. Cardiology 3. Neurology Hospital Course: DIAGNOSES: # Concern for Acute Cerebrovascular Accident s/p Tenecteplase # Acute Dizziness suspect due to Severe Aortic Stenosis # End-Stage Renal Disease on MWF iHD # Chronic Compensated Congestive Heart Failure # Hypertension # Type II Diabetes Mellitus HOSPITAL COURSE: Ms. Abby Meredith is a 67 year old female with a past medical history significant for end-stage renal disease on MWF iHD, chronic congestive heart failure, type II diabetes mellitus, and hypertension who was admitted to the [facility] on 02/24/2022 for weakness and dizziness. She was admitted to the Medicine service. Initial neurologic exam was reassuring and CT head had revealed, "negative non-contrast CT head examination for acute intracranial finding. Chronic ischemic changes can mask nonhemorrhagic acute infarction. MR brain followup can be obtained if there is ongoing concern for acute ischemia." A transthoracic echocardiogram was obtained, which revealed, "normal left ventricular ejection fraction 55-60%. normal wall motion. severe aortic valve stenosis with velocity max of 4.08 m/s". On 02/26/2022, she had an MRI brain which revealed, "no acute intracranial abnormality noted," and an MRA brain which revealed, "no acute abnormality displayed." At this time, her dizziness was thought to be secondary to severe aortic stenosis so Cardiology was consulted and the plan was for a pre-TAVR left and right heart catheterization. However, on 02/27/2022, she developed sudden neurologic change s. STAT CT head revealed, "no acute intracranial abnormality. If there is continued clinical concern for CVA, MR imaging of the brain would be recommended." Neurology was consulted and her case was reviewed by Dr. Mtz. He recommended that we push tenecteplase and transfer to the ICU. Over the course of her hospitalization, her neurologic deficits improved, but never competely back to baseline. An MRI brain obtained 24 hours post-tenecteplase revealed, "no acute intracranial abnormality. Specifically, no evidence of acute infarct." She was transferred out of the ICU and Physical Therapy evaluated her. They recommended continued PT services and I offered her inpatient rehab, but she declined. She stated that she would like to be discharged home, and this seems reasonable given the family support (she reports multiple medical personnel) that are available to assist her. I spoke with Dr. Retana, who will arrange for Home Health PT through his clinic. From his standpoint, she is safe to be discharged home. I reviewed her case with Dr. Mcpherson, who has also cleared her for discharge. He will arrange an outpatient left and right heart cath. I have also spoken with Dr. Mtz, who has cleared her for discharge with aspirin, atorvastatin, and clopidogrel. I have advised her about the mild right hydronephrosis seen on CT abdomen/pelvis and that she will need to see Dr. Elise to exclude a small ureteral mass. She verbalized understanding. On 03/03/2022, she was seen on morning rounds and deemed medically stable for discharge. She was discharged with instructions to schedule follow-up appointments with her PCP, Cardiology (Dr. Ruano), Neurology (Dr. Mtz), Nephrology (Dr. Retana), and Urology (Dr. Elise). She was provided prescriptions for atorvastatin, clopidogrel, and ondansetron. She was given the opportunity to ask questions and reported no further questions. Furthermore, all questions were answered to the best of my ability. A copy of this discharge summary will be sent to the above providers to facilitate continuity of care. Today, I personally spent 45 minutes on her case, of which greater than 50% of the time was spent in patient education, counseling, and coordination of care as described above. Physical Exam General: Alert, In no apparent distress, Oriented x3 HEENT: Atraumatic, PERRLA, Mucous membr. moist/pink, EOMI, Sclerae nonicteric Neck: Supple, JVD not distended Respiratory: Clear to auscultation bilaterally, Normal air movement Cardiovascular: No edema, Regular rate/rhythm, Normal S1 S2, No gallops, No rubs, grade III/ systolic murmur Gastrointestinal: Normal bowel sounds, Soft and benign, Non-distended, No tenderness, No rebound, No guarding Musculoskeletal: No clubbing Integumentary: No rashes Neurological: Normal speech, Normal strength at 5/5 LUE/LLE extr, 3/5 RLE, 4+/5 RUE. Cranial nerves 3-12 intact 1A. Level of consciousness - 0, alert and keenly responsive 1B. Ask month and age - 0, both questions rights 1C. Blink eyes & squeeze hands - 0, performs both tasks 2. Horizontal extraocular movements - 0, Normal gaze 3. Visual person - 0, no visual loss 4. Facial palsy - 0, normal symmetry 5A. Left arm motor drift - 0, No drift for 10 seconds 5B. Right arm motor drift - 1, Drift, but doesn't his bed 6A. Left leg motor drift - 0, No drift for 5 seconds 6B. Right leg motor drift - 2, Some effort against gravity 7. Limb ataxia - 0, no ataxia 8. Sensation - 0 - no deficit 9. Language/aphasia - 0, normal, no aphasia 10. Dysarthria - 0, no dysarthria 11. Extinction/inattention - 0, no abnormality NIH Stroke Scale = 3 Vital Signs/Physical Exam: Temp Pulse Resp BP Pulse Ox 97.5 F 75 18 132/60 95 03/03/22 08:00 03/03/22 08:00 03/03/22 08:00 03/03/22 08:00 03/03/22 08:00 Laboratory Data at Discharge: WBC 4.80 K/uL (4.3-10.9) 03/02/22 07:29 Hgb 8.3 g/dL (12.0-15.0) L 03/02/22 07:29 Hct 24.9 % (36.0-45.0) L 03/02/22 07:29 Plt Count 155 K/uL (152-406) 03/02/22 07:29 PT 12.8 SECONDS (9.5-12.5) H 02/27/22 08:49 INR 1.16 02/27/22 08:49 APTT 33.4 SECONDS (24.3-36.9) 02/27/22 08:49 Sodium 139 mmol/L (136-145) 03/03/22 05:56 Potassium 4.8 mmol/L (3.5-5.1) 03/03/22 05:56 BUN 48 mg/dL (7-18) H 03/03/22 05:56 Creatinine 5.90 mg/dL (0.55-1.3) H* 03/03/22 05:56 Glucose 129 mg/dL (74-106) H 03/03/22 05:56 Phosphorus 4.9 mg/dL (2.5-4.9) 02/27/22 02:42 Magnesium 2.4 mg/dL (1.8-2.4) 03/01/22 05:14 Total Bilirubin 0.4 mg/dL (0.2-1.0) 02/27/22 02:42 AST 15 U/L (15-37) 02/27/22 02:42 ALT 27 U/L (12-78) 02/27/22 02:42 Alkaline Phosphatase 137 U/L (45-117) H 02/27/22 02:42 Triglycerides 235 mg/dL (<150) H 02/25/22 02:19 Cholesterol 131 mg/dL (<200) 02/25/22 02:19 HDL Cholesterol 45 mg/dL (40-60) 02/25/22 02:19 Cholesterol/HDL Ratio 2.91 02/25/22 02:19 Home Medications: Aspirin Chewable [Aspirin Chewable*] 81 mg PO BEDTIME 05/03/20 Carvedilol [Coreg] 3.125 mg PO BID 05/03/20 Cholecalciferol (Vitamin D3) [Vitamin D3] 1,000 unit PO DAILY 05/03/20 Dialyvite 800 Ultra 1 tab PO BEDTIME 05/03/20 Gabapentin [Neurontin*] 100 mg PO BEDTIME 05/03/20 Glipizide [Glipizide ER] 5 mg PO BID 09/25/21 Lactulose [Kristalose] 20 gm PO DAILYPRN PRN 09/25/21 Sevelamer Carbonate [Renvela*] 800 mg PO TIDWM 09/25/21 Docusate [Colace Cap*] 100 mg PO DAILY 12/27/21 Losartan Potassium [Cozaar] 12.5 mg PO BEDTIME 12/27/21 Hydromorphone [Dilaudid*] 1 mg PO Q8HP PRN #6 tab 02/05/22 Atorvastatin Calcium [Lipitor*] 10 mg PO BEDTIME #30 tab 03/03/22 Clopidogrel Bisulfate [Plavix*] 75 mg PO DAILY #30 tab 03/03/22 Ondansetron [Zofran] 4 mg PO Q8H PRN 10 Days #20 tab 10/02/22 New Medications: Atorvastatin Calcium [Lipitor*] 10 mg PO BEDTIME #30 tab Clopidogrel Bisulfate [Plavix*] 75 mg PO DAILY #30 tab Ondansetron [Zofran] 4 mg PO Q8H PRN 10 Days #20 tab PRN Reason: Nausea / Vomiting Physician Discharge Instructions: 1. Please schedule a follow-up appointment with your PCP in 3-5 days 2. Please schedule a follow-up appointment with Cardiology (Dr. Ruano) in 3-5 days 3. Please schedule a follow-up appointment with Neurology (Dr. Mtz) in 3-5 days 4. Please schedule a follow-up appointment with Nephrology (Dr. Retana) in 5-7 days - Dr. Retana will work on arranging Home Health Physical Therapy 5. Please schedule a follow-up appointment with Urology (Dr. Elise) in 3-5 days - He will need to evaluate the mild swelling in your right kidney Diet: Renal Activity: Fall precautions Followup: Jabari Retana DO [ACTIVE - CAN ADMIT] - Imer Mtz MD [ASSOCIATE-ACTIVE - CAN ADMIT] - NONE,NONE [Primary Care Provider] - Jay Jay Ruano MD [ACTIVE - CAN ADMIT] - Jere Elise [ACTIVE - CAN ADMIT] - Time spent managing pt's care (in minutes): 45
[2022-03-03] MEDS ORDERED: CLOPIDOGREL 75 MG TABLET PO SCH (11:00)
[2022-03-03 12:00] VITALS: BP 144/64; TEMP 97.1
--- NOTE | 2022-03-03 18:00 | PN ---
Date of Progress Note: 03/03/2022 Subjective: The patient was seen and examined at bedside. She is doing okay. She is going to be di scharged from the hospital. Physical Examination: Vital Signs: Have been reviewed and are stable. General: She appears in no acute distress. Lungs: Clear to auscultation. Abdomen: Soft and nontender. Extremities: Right leg with some weakness noted. Laboratory Data: Has been reviewed in detail. Current Medications: Have also been reviewed. Impression: 1.End-stage renal disease, on dialysis. 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 3.History of severe aortic stenosis. 4.History of compensated congestive heart failure. Plan: The patient is overall doing okay. We will plan for dialysis tomorrow at outpatient dialysis unit. She has been given Zofran to take for her nausea as needed. I have sent the prescription in. All other home medications have been resumed and discharge medications have been reviewed in detail. ABDIRIZAK/MICHAEL Voice ID: [id number] Report ID: [id number]
== END 2022-03-03 12:21 | disposition home or self-care (01) | DRG 306 ==
LOC: ER 15:25 → ERHOLD 22:00 → 4TH 02-25 11:10 → OBSVTOIN 02-26 09:16 → 3RD-ICU 02-27 09:29 → 4TH 03-01 11:40
PROVIDERS: ADMIT Hospitalist; ATTEND Internal Medicine
PROC: 5A1D70Z Performance of Urinary Filtration, Intermittent, Less than 6 Hours Per Day (ICD-10-PCS; principal; 2022-02-25)
PROC: 3E03317 Introduction of Other Thrombolytic into Peripheral Vein, Percutaneous Approach (ICD-10-PCS; 2022-02-27)
DX: I35.0 Nonrheumatic aortic (valve) stenosis (principal); N18.6 End stage renal disease; Z68.41 Body mass index [BMI] 40.0-44.9, adult; I50.32 Chronic diastolic (congestive) heart failure; I13.2 Hypertensive heart and chronic kidney disease with heart failure and with stage 5 chronic kidney disease, or end stage renal disease; G81.91 Hemiplegia, unspecified affecting right dominant side; N13.30 Unspecified hydronephrosis; E11.22 Type 2 diabetes mellitus with diabetic chronic kidney disease; E11.42 Type 2 diabetes mellitus with diabetic polyneuropathy; E11.51 Type 2 diabetes mellitus with diabetic peripheral angiopathy without gangrene; D63.1 Anemia in chronic kidney disease; E66.9 Obesity, unspecified; E87.5 Hyperkalemia; D63.8 Anemia in other chronic diseases classified elsewhere; E78.5 Hyperlipidemia, unspecified; K59.01 Slow transit constipation; M89.8X9 Other specified disorders of bone, unspecified site; Z23 Encounter for immunization; Z99.2 Dependence on renal dialysis; Z88.0 Allergy status to penicillin; Z88.1 Allergy status to other antibiotic agents; Z79.82 Long term (current) use of aspirin; Z79.84 Long term (current) use of oral hypoglycemic drugs; Z90.49 Acquired absence of other specified parts of digestive tract; Z79.02 Long term (current) use of antithrombotics/antiplatelets; Z79.899 Other long term (current) drug therapy; Z20.822 Contact with and (suspected) exposure to COVID-19
CPT/HCPCS: 36415; 70450; 70544; 70551; 71045; 74176; 76857; 80048; 80053; 80061; 82947; 83036; 83735; 83880; 84100; 84443; 85025; 85610; 85730; 87811; 90471; 90732; 90935; 93005; 93306; 94760; 97161; 97164; 97530; 99284; G0378; J1644; J2250; J2405; J2550; J3101; J8597

== ENCOUNTER 2022-04-09 16:57 | Observation (INO) | payer OTHER ==
[2022-04-09] MEDS ORDERED: DEXTROSE 10%-WATER 500 ML IV ONE (17:02)
[2022-04-09] MEDS ORDERED: HYDROCORTISONE SUC 100 MG INJ ONE (17:02)
--- OUTSIDE RECORDS SUMMARY | 2022-04-09 17:02 | XMS REPORT | Continuity of Care Document ---
:[address] [facility] t Address [address] [place] [address] Care Team Providers Name Role Phone SYSTEM, PCP NOT IN Primary Care Physician Unavailable ERICH AMOS Attending Clinician Unavailable DARRIN JETT Attending Clinician Unavailable Darrin Jett MD Attending Clinician Doctor Unassigned, [place] Attending Clinician Unavailable Zahida Girard Attending Clinician EMMA HA Attending Clinician Unavailable DARRIN JETT Admitting Clinician Unavailable Payers Payer Name Policy Type Policy Number Effective Date Expiration Date shanti MEDICARE PART A [id number] 2020 \T\ B 00:00:00 [place]ICAID OF [place] [id number] 2021 00:00:00 Problems Condition Condition Condition Status [...] Branch 40.0-49.9 40.0-49.9 Acute Acute Disease Active Univers respirator respirator 8-14 it y of y disease y disease 00:00: Annmarie lara due to due to 00 Medical COVID-19 COVID-19 Branch virus virus Obesity Obesity Disease Active [facility] (BMI (BMI 8-14 ity of 30-39.9) 30-39.9) 00:00: 00 Medical Branch Urinary Obstructiv Problem Comm on tract e and Spirit obstructio reflux - [facility], [facility] [id number] Cerebrovas Problem Co mmon cular [facility] accident - [facility] (CVA)[facility] [id number] End stage Problem Com mon renal [facility] disease [facility] [id number] Cystitis Problem Comm on bacillary, [facility] chronic [facility] [id number] Hydronephr Problem Com mon osis, [facility] right [facility] [id number] Dependence Problem Co mmon on renal [facility] dialysis [facility] [id number] Cystitis Problem Commo n [facility] [id number] Gross Problem Common hematuria [facility] [id number] Suprapubic Problem Co mmon pain [facility] [id number] Lower Problem Common urinary [facility] tract - [facility] symptoms [facility] [id number] Pelvic Problem Common pain [facility] [id number] Acute Problem Common lower UTI [facility] [id number] Acute Problem Common cystitis [facility] with [facility] hematuria [facility] Allergies, Adverse Reactions, Alerts Allergy Allergy Status Severity Reaction(s) Onset Inactive Treating Comm ents Source Name Type Date Date Clinician Penicill Propensi Active Anaphylaxis 2014-06 U nivers in ty to 0-28 ity of adverse 00:00: [place] reaction 00 Medical s Branch PENICILL DRUG Active Anaphylaxis 2014-06 Uni vers IN INGREDI 0-28 ity of 00:00: [place] 00 Medical Branch penicill penicill Active Unknown Commo n in V in V [facility] Social History Social Habit Start Date Stop Date Quantity Comments Source History of Tobacco [facility] Use [facility] Sex Assigned At [facility] gabriela - [facility] Exposure to 2021-09-17 2021-09-27 Not sure [facility] SARS-CoV-2 (event) 00:00:00 09:49:00 Medica l Branch History SDLA 2020-01-14 2020-01-14 2 [facility] Transport Med 00:00:00 00:00:00 Medical Bra nch History [facility] 2020-01-14 2020-01-14 2 [facility] Transport Non-Med 00:00:00 00:00:00 Medical Branch Tobacco use and 2020-01-14 2020-01-14 Never used [facility] exposure 00:00:00 00:00:00 Medical Branch Alcohol intake 2020-01-14 2020-01-14 0 /d [facility] 00:00:00 00:00:00 Medical Branch History SDLA 2020-01-14 2020-01-14 1 [facility] Financial 00:00:00 00:00:00 Medical Branch History SDLA Food 2020-01-14 2020-01-14 3 [facility] Worry 00:00:00 00:00:00 Medical Branch History SDLA Food 2020-01-14 2020-01-14 3 [facility] Scarcity 00:00:00 00:00:00 Medical Branch Smoking Status Start Date Stop Date Source Never Smoker [facility] Spirit [facility] Medications Ordered Filled Start Stop Current Ordering Indication Dosage Frequency Signature Comments Components Source Medication Medication Date Date Medication? Clinician (SIG) Name Name Meropenem Meropenem 2021- No Meropenem 500 MG 500 MG 01-21 500 MG 00:00: 00:00 00 :00 Ditropan Ditropan 2021-2021- No Ditropan 5mg 5mg 12-13 5mg 00:00: 00:00 00 :00 Ditropan Ditropan 2021-2021- No Ditropan 5mg 5mg 12-13 5mg 00:00: 00:00 00 :00 Ditropan Ditropan 2021-2021- No Ditropan 5mg 5mg 12-13 5mg 00:00: 00:00 00 :00 Bactrim DS Bactrim DS 2022-0 2- No Bactrim DS 800-160 MG 800-160 MG 6-30 07-10 800-160 MG 00:00: 00:00 00 :00 aspirin 81 2020-0 2020- No [id number] 81mg Take 1 Univers mg chewable 9-10 12-10 tablet by it y of tablet 00:00: 05:59 mouth [place] 00 :00 daily for Medical 90 days. Branch cholecalcif 2019-0 2019- No [id number] 1000U Take 1 Univers filiberto, 9-10 12-10 tablet by ity of vitamin D3, 00:00[place] 05[place] 25 [place] 00 :00 daily for Medical (1,000 90 days. Branch unit) tablet aspirin 81 2019-0 2019- No [id number] 81mg Take 1 Univers mg chewable 9-10 12-10 tablet by it y of tablet 00:00: 05:59 mouth [place] 00 :00 daily for Medical 90 days. Branch cholecalcif 2019-2019- No [id number] 1000U Take 1 Univers filiberto, 9-10 12-10 tablet by ity of vitamin D3, 00:00: 05:59 [place] 25 mcg 00 :00 daily for Medical (1,000 90 days. Branch unit) tablet ferrous 2019-2019- No [id number] 325mg Take 1 U nivers sulfate 325 9-10 10-11 tablet by it y of mg (65 mg 00:00: 04:59 mouth [place] iron) 00 :00 daily for Medical tablet 30 days. Branch ferrous 2019-0 2020- No [id number] 325mg Take 1 U nivers sulfate 325 [...] needed. Medica l Branch Lancets 2020-0 Yes [id number] Use as Uni vers Misc 02-08 directed ity of 00:00: [place] 00 Medical Branch Blood-Gluco 2020-0 Yes [id number] Use as Univers se Meter 02-08 directed ity of Kit 00:00: [place] 00 Medical Branch Blood 2020-0 Yes [id number] Use as Unive rs Glucose 02-08 directed ity of Strip-Disp 00:00: [place] Meter Kit 00 Medical Branch Lancets 2020-0 Yes [id number] Use as Uni vers Misc 02-08 directed ity of 00:00: [place] 00 Medical Branch Blood-Gluco 2020-0 Yes [id number] Use as Univers se Meter 02-08 directed ity of Kit 00:00: [place] 00 Medical Branch Blood 2020-0 Yes [id number] Use as Unive rs Glucose 02-08 directed ity of Strip-Disp 00:00: [place] Meter Kit 00 Medical Branch Lancets 2020-0 Yes [id number] Use as Uni vers Misc 02-08 directed ity of 00:00: [place] 00 Medical Branch Blood-Gluco 2020-0 Yes [id number] Use as Univers se Meter 02-08 directed ity of Kit 00:00: [place] 00 Medical Branch Blood 2020-0 Yes [id number] Use as Unive rs Glucose 02-08 directed ity of Strip-Disp 00:00: [place] Meter Kit 00 Medical Branch Lancets 2020-0 Yes [id number] Use as Uni vers Misc 02-08 directed ity of 00:00: [place] 00 Medical Branch Blood-Gluco 2020-0 Yes [id number] Use as Univers se Meter 02-08 directed ity of Kit 00:00: [place] 00 Medical Branch Blood 2020-0 Yes [id number] Use as Unive rs Glucose 02-08 directed ity of Strip-Disp 00:00: [place] Meter Kit 00 Medical Branch Lancets 2020-0 Yes [id number] Use as Uni vers Misc 02-08 directed ity of 00:00: [place] 00 Medical Branch Blood-Gluco 2020-0 Yes [id number] Use as Univers se Meter 02-08 directed ity of Kit 00:00: [place] 00 Medical Branch Blood 2020-0 Yes [id number] Use as Unive rs Glucose 02-08 directed ity of Strip-Disp 00:00: [place] Meter Kit 00 Medical Branch amLODIPine 2020- No [id number] 10mg Take 1 Univers 10 mg 02-08 tablet by ity of tablet 00:00: 05:59 mouth [place] 00 :00 daily for Medical 90 days. Branch carvediloL 2020- No [id number] 12.5mg Take 1 Univers 12.5 mg 02-08 tablet by ity of tablet 00:00: 05:59 mouth 2 [place] 00 :00 (two) [facility] daily with meals for 90 days. sennosides 2019- No [id number] 8.6mg Take 1 Univers 8.6 mg 02-08 tablet by ity of tablet 00:00: 05:59 mouth 2 [place] 00 :00 (two) [facility] daily for 90 days. Insulin 2020- No [id number] 20U inject 20 Univers Glargine 02-08 Units ity of (LANTUS 00:00: 05:59 [place] SOL[place] 00 :00 skin at [facility] U-100 bedtime Branch INSULIN) for 90 100 unit/mL days. (3 mL) injection hydrALAZINE 2020- No [id number] 25mg Take 1 Univers 25 mg 02-08 tablet by ity of tablet 00:00: 05:59 mouth 2 [place] 00 :00 (two) [facility] daily for 90 days. amLODIPine 2020- No [id number] 10mg Take 1 Univers 10 mg 02-08 tablet by ity of tablet 00:00: 05:59 mouth [place] 00 :00 daily for Medical 90 days. Branch carvediloL 2020- No [id number] 12.5mg Take 1 Univers 12.5 mg 02-08 tablet by ity of tablet 00:00: 05:59 mouth 2 [place] 00 :00 (two) Medical times Branch daily with meals for 90 days. sennosides 2020- No [id number] 8.6mg Take 1 Univers 8.6 mg 02-08 tablet by ity of tablet 00:00: 05:59 mouth 2 [place] 00 :00 (two) Medical times Branch daily for 90 days. Insulin 2020- No [id number] 20U inject 20 Univers Glargine 02-08 Units ity of (LANTUS 00:00: 05:[place] :[place] skin at [facility] U-100 bedtime Branch INSULIN) for 90 100 unit/mL days. (3 mL) injection hydrALAZINE 2019- No [id number] 25mg Take 1 Univers 25 mg 02-08 tablet by ity of tablet 00:00: 05:59 mouth 2 [place] 00 :00 (two) Medical times Branch daily for 90 days. furosemide 2019-0 Yes TAKE 1 Unive rs 40 mg 8-10 TABLET BY ity of tablet 00:00: MOUTH [place] 00 TWICE A Medical DAY Branch gabapentin 2019-0 Yes TAKE BY Univ ers 100 mg [...] TABLET BY ity of tablet 00:00: MOUTH [place] [id number] TWICE A Medical DAY Branch gabapentin 2020-0 Yes TAKE BY Univ ers 100 mg 8-10 MOUTH 2 ity of capsule 00:00: [place] 3 [place] 00 TIMES A Medical DAY Branch NEEDED FOR PAIN cyclobenzap 2018-06 Yes 10mg Take 10 mg Univers rine 10 mg 0-01 by mouth. ity of tablet 00:00: [address] Branch metoclopram 2018- Yes 5mg Take 5 mg U nivers reanto HCl 5 0-01 by mouth. ity o f mg tablet 00:00: [address] Branch pantoprazol 2018-06 Yes 40mg Take 40 mg Univers e 40 mg EC 0-01 by mouth. ity of tablet 00:00: [address] Branch pravastatin 2018-06 Yes 40mg Take 40 mg Univers 40 mg 0-01 by mouth. ity of tablet 00:00: [address] Branch cyclobenzap 2018- Yes 10mg Take 10 mg Univers rine 10 mg 0-01 by mouth. ity of tablet 00:00: [address] Branch metoclopram 2018-06 Yes 5mg Take 5 mg U nivers renato HCl 5 0-01 by mouth. ity o f mg tablet 00:00: [address] pantoprazol 2018- Yes 40mg Take 40 mg Univers e 40 mg EC 0-01 by mouth. ity of tablet 00:00: [address] Branch pravastatin 2018- Yes 40mg Take 40 mg Univers 40 mg 0-01 by mouth. ity of tablet 00:00: [address] Branch cyclobenzap 2018- Yes 10mg Take 10 mg Univers rine 10 mg 0-01 by mouth. ity of tablet 00:00: [place] [facility] Branch metoclopram 2018- Yes 5mg Take 5 mg U nivers renato HCl 5 0-01 by mouth. ity o f mg tablet 00:00: [address] Branch pantoprazol 2018-06 Yes 40mg Take 40 mg Univers e 40 mg EC 0-01 by mouth. ity of tablet 00:00: [address] pravastatin 2018- Yes 40mg Take 40 mg Univers 40 mg 0-01 by mouth. ity of tablet 00:00: [address] cyclobenzap 2018-06 Yes 10mg Take 10 mg Univers rine 10 mg 0-01 by mouth. ity of tablet 00:00: [address] metoclopram 2018-06 Yes 5mg Take 5 mg U nivers renato HCl 5 0-01 by mouth. ity o f mg tablet 00:00: [address] pantoprazol 2018-06 Yes 40mg Take 40 mg Univers e 40 mg EC 0-01 by mouth. ity of tablet 00:00: [address] pravastatin 2018-06 Yes 40mg Take 40 mg Univers 40 mg 0-01 by mouth. ity of tablet 00:00: [address] cyclobenzap 2018-06 Yes 10mg Take 10 mg Univers rine 10 mg 0-01 by mouth. ity of tablet 00:00: [address] metoclopram 2018-06 Yes 5mg Take 5 mg U nivers renato HCl 5 0-01 by mouth. ity o f mg tablet 00:00: [address] pantoprazol 2018-06 Yes 40mg Take 40 mg Univers e 40 mg EC 0-01 by mouth. ity of tablet 00:00: [address] pravastatin 2018-06 Yes 40mg Take 40 mg Univers 40 mg 0-01 by mouth. ity of tablet 00:00: [address] Vitamin D3 Vitamin D3 No Vitamin D3 3711717 [id number] UNIT/GM UNIT/GM UNIT/GM Colace 100 Colace 100 No 1{capsu QD Colace 100 MG MG le_as_n MG eeded} glipiZIDE 5 glipiZIDE 5 No QD glipiZIDE MG MG 5 MG Dialyvite - Dialyvite - No 1{table QD Dialyvite t} - Carvedilol Carvedilol No 1{table BID Carvedilol 3.125 MG 3.125 MG t_with_ 3.125 MG food} Renvela 800 Renvela 800 No 1{table TID Renvela MG MG t_with_ 800 MG meals} Carvedilol Carvedilol No 1{table BID Carvedilol 3.125 MG 3.125 MG t_with_ 3.125 MG food} Vitamin D3 Vitamin D3 No Vitamin D3 3784400 [id number] UNIT/GM UNIT/GM UNIT/GM Losartan Losartan No QD Losartan Potassium Potassium Potassium 25 MG 25 MG 25 MG Renvela 800 Renvela 800 No 1{table TID Renvela MG MG t_with_ 800 MG meals} Dialyvite - Dialyvite - No 1{table QD Dialyvite t} - Gabapentin Gabapentin No 1{capsu QD Gabapentin 100 MG 100 MG le} 100 MG Aspirin 81 Aspirin 81 No 1{table QD Aspirin 81 81 MG 81 MG t} 81 MG Lactulose Lactulose No 15{ml} QD Lactulose 20 GM/30ML 20 GM/30ML 20 GM/30ML Colace 100 Colace 100 No 1{capsu QD Colace 100 MG MG le_as_n MG eeded} glipiZIDE 5 glipiZIDE 5 No QD glipiZIDE MG MG 5 MG Carvedilol Carvedilol No 1{table BID Carvedilol 3.125 MG 3.125 MG t_with_ 3.125 MG food} Renvela 800 Renvela 800 No 1{table TID Renvela MG MG t_with_ 800 MG meals} Lactulose Lactulose No 15{ml} QD Lactulose 20 GM/30ML 20 GM/30ML 20 GM/30ML Losartan Losartan No QD Losartan Potassium Potassium Potassium 25 MG 25 MG 25 MG glipiZIDE 5 glipiZIDE 5 No QD glipiZIDE MG MG 5 MG Dialyvite - Dialyvite - No 1{table QD Dialyvite t} - Vitamin D3 Vitamin D3 No Vitamin D3 9602970 [id number] UNIT/GM UNIT/GM UNIT/GM Aspirin 81 Aspirin 81 No 1{table QD Aspirin 81 81 MG 81 MG t} 81 MG Colace 100 Colace 100 No 1{capsu QD Colace 100 MG MG le_as_n MG eeded} Gabapentin Gabapentin No 1{capsu QD Gabapentin 100 MG 100 MG le} 100 MG Losartan Losartan No QD Losartan Potassium Potassium Potassium 25 MG 25 MG 25 MG Ondansetron Ondansetron No Ondansetro n Atorvastati Atorvastati No 1{table QD Atorvastat n Calcium n Calcium t} in Calcium 10 MG 10 MG 10 MG Aspirin 81 Aspirin 81 No 1{table QD Aspirin 81 81 MG 81 MG t} 81 MG Dialyvite - Dialyvite - No 1{table QD Dialyvite t} - glipiZIDE 5 glipiZIDE 5 No QD glipiZIDE MG MG 5 MG Renvela 800 Renvela 800 No 1{table TID Renvela MG MG t_with_ 800 MG meals} Carvedilol Carvedilol No 1{table BID Carvedilol 3.125 MG 3.125 MG t_with_ 3.125 MG food} Gabapentin Gabapentin No 1{capsu QD Gabapentin 100 MG 100 MG le} 100 MG Plavix 75 Plavix 75 No 1{table QD Plavix 75 MG MG t} MG Lactulose Lactulose No 15{ml} QD Lactulose 20 GM/30ML 20 GM/30ML 20 GM/30ML Colace 100 Colace 100 No 1{capsu QD Colace 100 MG MG le_as_n MG eeded} Vitamin D3 Vitamin D3 No Vitamin D3 0001537 8600981 2027151 UNIT/GM UNIT/GM UNIT/GM Losartan Losartan No QD Losartan Potassium Potassium Potassium 25 MG 25 MG 25 MG Ondansetron Ondansetron No Ondansetro n Atorvastati Atorvastati No 1{table QD Atorvastat n Calcium n Calcium t} in Calcium 10 MG 10 MG 10 MG Aspirin 81 Aspirin 81 No 1{table QD Aspirin 81 81 MG 81 MG t} 81 MG Dialyvite - Dialyvite - No 1{table QD Dialyvite t} - glipiZIDE 5 glipiZIDE 5 No QD glipiZIDE MG MG 5 MG Renvela 800 Renvela 800 No 1{table TID Renvela MG MG t_with_ 800 MG meals} Carvedilol Carvedilol No 1{table BID Carvedilol 3.125 MG 3.125 MG t_with_ 3.125 MG food} Gabapentin Gabapentin No 1{capsu QD Gabapentin 100 MG 100 MG le} 100 MG Plavix 75 Plavix 75 No 1{table QD Plavix 75 MG MG t} MG Lactulose Lactulose No 15{ml} QD Lactulose 20 GM/30ML 20 GM/30ML 20 GM/30ML Colace 100 Colace 100 No 1{capsu QD Colace 100 MG MG le_as_n MG eeded} Vitamin D3 Vitamin D3 No Vitamin D3 6798505 5142760 [id number] UNIT/GM UNIT/GM UNIT/GM Renvela 800 Renvela 800 No 1{table TID Renvela MG MG t_with_ 800 MG meals} Gabapentin Gabapentin No 1{capsu QD Gabapentin 100 MG 100 MG le} 100 MG Lactulose Lactulose No 15{ml} QD Lactulose 20 GM/30ML 20 GM/30ML 20 GM/30ML Losartan Losartan No QD Losartan Potassium Potassium Potassium 25 MG 25 MG 25 MG Dialyvite - Dialyvite - No 1{table QD Dialyvite t} - Carvedilol Carvedilol No 1{table BID Carvedilol 3.125 MG 3.125 MG t_with_ 3.125 MG food} glipiZIDE 5 glipiZIDE 5 No QD glipiZIDE MG MG 5 MG Aspirin 81 Aspirin 81 No 1{table QD Aspirin 81 81 MG 81 MG t} 81 MG Vitamin D3 Vitamin D3 No Vitamin D3 5446487 5244610 [id number] UNIT/GM UNIT/GM UNIT/GM Colace 100 Colace 100 No 1{capsu QD Colace 100 MG MG le_as_n MG eeded} Aspirin 81 Aspirin 81 No 1{table QD Aspirin 81 81 MG 81 MG t} 81 MG Gabapentin Gabapentin No 1{capsu QD Gabapentin 100 MG 100 MG le} 100 MG Lactulose Lactulose No 15{ml} QD Lactulose 20 GM/30ML 20 GM/30ML 20 GM/30ML Losartan Losartan No QD Losartan Potassium Potassium Potassium 25 MG 25 MG 25 MG Vital Signs Vital Name Observation Time Observation Value Comments Source height 2021-12-13 10:00:00 62 [in_i] [facility] weight 2021-12-13 10:00:00 223 [lb_av] [facility] temperature 2021-12-13 10:00:00 97.8 [degF] [facility] bmi 2021-12-13 10:00:00 40.78 kg/m2 [facility] oximetry 2021-12-13 10:00:00 98 % [facility] respiratory rate 2021-12-13 10:00:00 16 /min Comm on [facility] blood pressure 2021-12-13 10:00:00 132 mm[Hg] [facility] - systolic [facility] blood pressure 2021-12-13 10:00:00 68 mm[Hg] [facility] - diastolic [facility] height 2021-11-29 15:30:00 62 [in_i] [facility] weight 2021-11-29 15:30:00 223.8 [lb_av] [facility] temperature 2021-11-29 15:30:00 97.2 [degF] [facility] bmi 2021-11-29 15:30:00 40.93 kg/m2 [facility] oximetry 2021-11-29 15:30:00 98 % [facility] respiratory rate 2021-11-29 15:30:00 16 /min Comm on [facility] blood pressure 2021-11-29 15:30:00 189 mm[Hg] [facility] [place] [facility] blood pressure 2021-11-29 15:30:00 73 mm[Hg] [facility] diastolic [facility] Procedures Procedure Date / Time Performing Clinician Source Performed MR LUMBAR SPINE WO 2021-10-03 17:33:38 Darrin Jett [facility] CONTRAST Medical Branch MR CERVICAL SPINE WO 2021-09-27 16:22:00 Darrin Jett [facility] CONTRAST Medical Branch NOTICE OF PRIVACY 2021-09-27 14:56:14 Doctor Unassigned, No [facility] PRACTICES Name Medical Branch CONSENT/REFUSAL FOR 2021-09-27 14:55:59 Doctor Unassigned, No Un [facility] DIAGNOSIS AND TREATMENT Name Medical Branch CONSENT/REFUSAL FOR 2021-09-27 14:55:21 Doctor Unassigned, No [facility] DIAGNOSIS AND TREATMENT Name Medical Branch ASSIGNMENT OF BENEFITS 2021-09-27 14:54:58 Doctor Unassigned, No [facility] Name Medical Branch AUTHORIZATION FOR 2020-03-07 05:01:00 Doctor Unassigned, No [facility] RELEASE OF PHI Name Medical Branch Encounters Start End Encounter Admission Attending Care Care Encounter Source Date/Time Date/Time Type Type Clinicians Facility Department ID 2022-02-[address] [facility] [id number] Common 14:14:03 ERICH [facility] - [facility] 2021-11-29 Outpatient AMOS, STLMLC STLMLC [id number] Common 14:01:03 ERICH [facility] - [facility] 2022-03-08 2022-03-08 OL DIG E/M STLMLC STLMLC [id number] Common 00:00:00 00:00:00 SVC 21+ [facility] MIN [facility] 2022-02-01 2022-02-01 (TEL) STLMLC STLMLC [id number] Co mmon 00:00:00 00:00:00 [facility] - [facility] 2022 2022 OFFICE STLMLC STLMLC [id number] Co mmon 00:00:00 00:00:00 VISIT Spirit ESTAB PT - CHI LEVEL 1 [facility] 2021-12-13 2021-12-13 OFFICE STLMLC STLMLC [id number] Co mmon 00:00:00 00:00:00 VISIT Spirit ESTAB PT - CHI LEVEL 2 [facility] 2021-11-29 2021-11-29 OFFICE STLMLC STLMLC [id number] Co mmon 00:00:00 00:00:00 VISIT NEW Spir it PT LEVEL 4 - CHI [facility] 2021-10-03 2021-10-03 Outpatient [facility] [id number] Univers 11:18:32 23:59:00 DARRIN ity of [facility] 2021-10-03 2021-10-03 [facility] [id number] [facility] 11:18:32 23:59:00 Encounter Darrin S [place] [id number] ity of [place] 4.2.7.2.686 [facility] [id number] [address] 2021-09-27 2021-09-27 [facility] [id number] Univers 09:30:00 23:59:00 Encounter Darrin S [place] 350.1.13.10 ity [facility] 4.2.7.2.686 [facility] [id number] [facility] 804 Branch 2021-09-27 2021-09-27 Outpatient R JOHNIE [facility] [id number] Univers 09:51:28 09:29:00 DARRIN higgins of [facility] 2021-09-27 2021-09-27 [facility] [id number] Univers 09:00:00 09:29:00 Encounter Darrin PIM[place] 350.1.13.10 ity of [place] 4.2.7.2.686 [facility] [id number] [facility] 804 Branch 2020-03-07 2020-03-07 Orders Doctor MOONEY [id number] Univers 00:00:00 00:00:00 Only Unassigned, ALLY 350.1.13.10 ity of [place] [facility] 4.2.7.2.686 Alli [id number] [facility] 009 Branch 2020-03-07 2020-03-07 Orders Doctor MOONEY [id number] 00:00:00 00:00:00 Only Unassigned, ALLY 350.1.13.10 [place] [facility] 4.2.7.2.686 [id number] 2020-02-10 2020-02-10 Transition Kath Girard [id number] Univers 00:00:00 00:00:00 of Care Zahida Michele 350.1.13.10 ity of [place] 4.2.7.2.686 [facility] [id number] [facility] 403 Branch 2020-02-10 2020-02-10 Transition Kath Girard [id number] 00:00:00 00:00:00 of Care Zahida Michele 350.1.13.10 [place] 4.2.7.2.686 [id number] 2020-01-13 2020-01-13 Emergency X DILCIA [facility] ERT [id number] Univers 21:11:00 21:11:00 EMMA higgins of [facility] Results This patient has no known results.
[2022-04-09 17:47] LABS: Potassium 4.2 mmol/L (3.5-5.1)
--- NOTE | 2022-04-09 18:02 | RAD REPORT ---
EXAM DESCRIPTION: CT - Head Brain Wo Cont - 04/09/2022 5:51 pm CLINICAL HISTORY: AMS Headache, drowsiness COMPARISON: Ct Stroke Brain Wo Cont dated 02/27/2022; Head Brain Wo Cont dated 02/24/2022 TECHNIQUE: All CT scans are performed using dose optimization technique as appropriate and may inclu de automated exposure control or mA/KV adjustment according to patient size. FINDINGS: No intracranial hemorrhage, hydrocephalus or extra-axial fluid collection.Small old left-s ided lacunar infarct.No areas of brain edema or evidence of midline shift. Left vertebral atheroscler osis. The paranasal sinuses and mastoids are clear. The calvarium is intact. IMPRESSION: No acute intracranial abnormality.
[2022-04-09 18:03] LABS: Absolute Lymphocytes (CBC) 1.8 K/uL (0.7-4.9); Lymphocytes % 33.1 % (15.3-44.8); MCV 93.9 fL (80-100); MPV 9.2 fL (7.6-11.3); RBC Red Blood Cell Count 3.84 M/uL (3.86-4.86)
--- NOTE | 2022-04-09 18:05 | RAD REPORT ---
EXAM DESCRIPTION: RAD - Chest Single View - 04/09/2022 5:40 pm CLINICAL HISTORY: AMS Chest pain. COMPARISON: Chest Single View dated 02/27/2022; Chest Pa And Lat (2 Views) dated 12/27/2021; Chest Sin gle View dated 05/09/2020; Chest Single View dated 05/03/2020 FINDINGS: Portable technique limits examination quality. Elevated right hemidiaphragm is present, chronic. Mild pulmonary edema suspected. The heart is modera tely enlarged. No displaced fractures. IMPRESSION: Mild CHF.
[2022-04-09 18:38] LABS: SARS-COV-2 RT PCR NEGATIVE (NEGATIVE)
--- NOTE | 2022-04-09 19:01 | EDPHYS ---
Physician Documentation [facility] Name: Abby Meredith Age: 67 yrs Sex: Female : 1955 Arrival Date: 04/09/2022 Time: 16:58 Bed 7 Private MD: ED Physician Lamont Vega HPI: 04/09 17:19 This 67 yrs old Female presents to ER via Unassigned with complaints of AMS, rn low blood sugar. 17:19 The patient presents with decreased mental status, decreased responsiveness. Onset: The rn symptoms/episode began/occurred just prior to arrival. Possible causes: low blood sugar. Associated signs and symptoms: Pertinent positives: confusion, Pertinent negatives: abdominal pain, chest pain, seizure. Current symptoms: In the emergency department the patient's symptoms are unchanged from the initial presentation. The patient has not experienced similar symptoms in the past. The patient has not recently seen a physician. EMS report AMS and decreased responsiveness, glucose was in 20s, given D10 by EMS, glucose up to 70. Does not take insulin but takes oral medication. Pt in 50s upon arrival. Pt became more alert after D10 administration here, reports subjective fever/chills/cough. Reports other family members with flu last week. . Historical: - Allergies: 21:22 PENICILLINS; vc1 - PMHx: 21:22 CHF; Diabetes - IDDM; Dialysis; M-W-F; Hyperlipidemia; Hypertension; vc1 - Immunization history:: Adult Immunizations up to date, Client reports having NOT received the Covid vaccine. Pneumococcal vaccine is up to date, Flu vaccine is up to date. - Family history:: not pertinent. - Social history:: Smoking status: Patient denies any tobacco usage or history of. - Hospitalizations: : No recent hospitalization is reported. ROS: 17:19 Constitutional: Negative for fever, chills, and weight loss, Eyes: Negative for injury, rn pain, redness, and discharge, ENT: Negative for injury, pain, and discharge, Cardiovascular: Negative for chest pain, palpitations, and edema, Respiratory: + cough and sob Abdomen/GI: Negative for abdominal pain, nausea, vomiting, diarrhea, and constipation, Back: Negative for injury and pain, MS/Extremity: Negative for injury and deformity, Skin: Negative for injury, rash, and discoloration, Neuro: Negative for numbness, tingling, and seizure. Exam: 17:19 Constitutional: This is a well developed, well nourished patient who is awake, alert, rn and in no acute distress. Head/Face: Normocephalic, atraumatic. Eyes: Periorbital areas with no swelling, redness, or edema. ENT: dry MM Cardiovascular: Regular rate and rhythm. No pulse deficits. Respiratory: No increased work of breathing, no retractions or nasal flaring. Abdomen/GI: Soft, non-tender Skin: Warm, dry MS/ Extremity: Pulses equal, no cyanosis. Neuro: Somnolent, awakens to voice and sternal rub. generalized weakness without lateralizing signs. 17:19 ECG was reviewed by the Attending Physician. Vital Signs: 16:59 BP 158 / 88; Pulse 68; Resp 12; Temp 96.9; Pulse Ox 95% on R/A; mb9 17:30 BP 161 / 62; Pulse 65; Resp 20; Pulse Ox 98% on R/A; tw2 17:32 BP 161 / 62; Pulse 63; Resp 16; Pulse Ox 96% on R/A; mb9 18:30 BP 174 / 69; Pulse 72; Resp 22; Pulse Ox 96% on R/A; mb9 20:00 BP 175 / 85; Pulse 80; Resp 18; Pulse Ox 92% ; vc1 21:00 BP 181 / 94; Pulse 85; Resp 24; Pulse Ox 100% ; vc1 MDM: 16:58 Patient medically screened. rn 18:58 Differential Diagnosis: pneumonia, volume depletion, influenza, hypoglycemia. Data rn reviewed: vital signs, nurses notes, lab test result(s), and as a result, I will admit patient. Counseling: I had a detailed discussion with the patient and/or guardian regarding: the historical points, exam findings, and any diagnostic results supporting the discharge/admit diagnosis, lab results, radiology results, the need for further work-up and treatment in the hospital. Response to treatment: the patient's symptoms have mildly improved after treatment, and as a result, I will admit patient. Admission orders: after a detailed discussion of the patient's condition and case, the admit orders are written by me. ED course: GLucose dropping after initial increase. + flu. Will observe to hospitalist service. . 04/09 17:01 Order name: CBC with Diff rn 04/09 17:01 Order name: Basic Metabolic Panel rn 04/09 17:01 Order name: Urine Microscopic Only rn 04/09 17:17 Order name: COVID-19/FLU A+B/RSV (Document "Date of Onset" if Symptomatic); Complete rn Time: 18:52 04/09 17:17 Order name: BNP rn 04/09 17:26 Order name: Glucose, Ancillary Testing; Complete Time: 17:48 EDMS 04/09 17:01 Order name: CT Head Brain wo Cont; Complete Time: 18:08 rn 04/09 17:01 Order name: XRAY Chest (1 view); Complete Time: 18:08 rn 04/09 17:41 Order name: Glucose, Ancillary Testing; Complete Time: 17:48 EDMS 04/09 18:13 Order name: Glucose, Ancillary Testing; Complete Time: 18:19 EDMS 04/09 19:09 Order name: Glucose, Ancillary Testing EDMS 04/09 20:14 Order name: CBC Smear Scan EDMS 04/09 20:36 Order name: Glucose, Ancillary Testing EDMS 04/09 17:01 Order name: IV Start; Complete Time: 17:06 rn 04/09 17:01 Order name: EKG; Complete Time: 17:01 rn 04/09 17:01 Order name: EKG - Nurse/Tech; Complete Time: 17:18 rn 04/09 17:01 Order name: Glucose Level; Complete Time: 17:06 rn 04/09 17:01 Order name: Cardiac monitoring; Complete Time: 17:06 rn 04/09 17:01 Order name: O2 Sat Monitoring; Complete Time: 17:06 rn 04/09 19:00 Order name: PO challenge; Complete Time: 19:10 rn EC:19 Rate is 64 beats/min. Rhythm is regular. QRS [place] is Normal. SC interval is normal. QRS rn interval is normal. QT interval is normal. No Q waves. T waves are Normal. No ST changes noted. Clinical impression: NSR w/ Non-specific ST/T Changes. Interpreted by me. Reviewed by me. Administered Medications: 17:08 Drug: D10 in Water [2 mL/kg] 250 ml Route: IVP; Site: right antecubital; 9 17:31 Follow up: Response: No adverse reaction mb9 17:08 Drug: HydroCORTISONE 100 mg Route: IVP; Site: right antecubital; mb9 17:26 Follow up: Response: No adverse reaction mb9 19:10 Follow up: Response: No adverse reaction mb9 19:29 Drug: Tamiflu (oseltamivir) 75 mg Route: PO; ll3 19:29 Drug: D10 in Water [2 mL/kg] 250 ml Route: IVP; Site: right forearm; ll3 20:49 Drug: Albuterol - atroVENT (ipratropium) (3:1) (2.5 mg - 0.5 mg) 3 ml Route: Nebulizer; ll3 20:49 Drug: Tessalon Perle (benzonatate) 100 mg Route: PO; ll3 21:28 Drug: hydrALAZINE 10 mg Route: IVP; Site: right antecubital; ll3 Disposition Summary: 04/09/22 19:00 Hospitalization Ordered Hospitalization Status: Observation rn Provider: Vladimir Casey rn Location: Telemetry/MedSurg (observation) rn Condition: Stable rn Problem: new rn Symptoms: have improved rn Bed/Room Type: Standard rn Room Assignment: 219(04/09/22 19:58) mw Diagnosis - Hypoglycemia, unspecified rn - Influenza due to identified novel influenza A virus rn - End stage renal disease rn Forms: - Medication Reconciliation Form rn - SBAR form rn Signatures: Dispatcher [employer] EDXenia Geano RN RN Lamont Bianchi MD MD rn Attema, Lee, PRINTED [employer]ARD LAYOUT DESIGNER-C [employer] LAYOUT DESIGNER-[facility] Kareem Langley RN RN ll3 Angie Peres RN RN 1 Monique Perez, RN RN mb9 Corrections: (The following items were deleted from the chart) 19:58 19:00 rn silvestre
--- NOTE | 2022-04-09 19:01 | ER ---
Nurse's Notes [facility] Name: Abby Meredith Age: 67 yrs Sex: Female : 1955 Arrival Date: 04/09/2022 Time: 16:58 Bed 7 Private MD: Diagnosis: Hypoglycemia, unspecified;Influenza due to identified novel influenza A virus;End stage renal disease Presentation: 04/09 16:59 Chief complaint: EMS states: family called 911 because pt was incoherent, pale, cold, mb9 and diaphoretic on scene. Glucose level on arrival was 24. Administered 15g of D10 and glucose increased to 78. EMS states pts eyes are pinpoint and they found a bottle of hydrocodone on scene. Coronavirus screen: Client denies travel out of the [place] in the last 14 days. Ebola Screen: No symptoms or risks identified at this time. Initial Sepsis Screen: Does the patient meet any 2 criteria? No. Patient's initial sepsis screen is negative. Does the patient have a suspected source of infection? No. Patient's initial sepsis screen is negative. Risk Assessment: Do you want to hurt yourself or someone else? Patient reports no desire to harm self or others. Onset of symptoms was April 09, 2022. 16:59 Method Of Arrival: EMS: [facility] mb9 16:59 Acuity: TOMASA 2 mb9 Historical: - Allergies: 21:22 PENICILLINS; vc1 - PMHx: 21:22 CHF; Diabetes - IDDM; Dialysis; M-W-F; Hyperlipidemia; Hypertension; vc1 - Immunization history:: Adult Immunizations up to date, Client reports having NOT received the Covid vaccine. Pneumococcal vaccine is up to date, Flu vaccine is up to date. - Family history:: not pertinent. - Social history:: Smoking status: Patient denies any tobacco usage or history of. - Hospitalizations: : No recent hospitalization is reported. Screenin:46 Abuse screen: Denies threats or abuse. Nutritional screening: No deficits noted. mb9 Tuberculosis screening: No symptoms or risk factors identified. Fall Risk None identified. Assessment: 16:58 Reassessment: [facility] gave 15g D10. mb9 16:58 General: Appears uncomfortable, Behavior is drowsy. General: Behavior is unresponsive. mb9 Pain: Denies pain. Neuro: Level of Consciousness is. Neuro: Level of Consciousness is unresponsive, Oriented to none Pupils are pinpoint. 16:58 Cardiovascular: Heart tones S1 S2 present Rhythm is regular. Respiratory: Airway is mb9 patent Respiratory effort is even, unlabored, Respiratory pattern is regular, symmetrical, Breath sounds are clear bilaterally. GI: Abdomen is round Bowel sounds present X 4 quads. Abd is soft and non tender X 4 quads. : No signs and/or symptoms were reported regarding the genitourinary system. EENT: No signs and/or symptoms were reported regarding the EENT system. Derm: Skin is intact, Skin is clammy, Skin is normal, Skin temperature is cool. 17:05 General: Appears uncomfortable, Behavior is drowsy. mb9 17:05 General: Behavior is pt talking. Neuro: Level of Consciousness is confused, Oriented to mb9 none. Respiratory: Airway is patent Respiratory effort is even, unlabored, Respiratory pattern is regular, symmetrical. Derm: Skin is intact, Skin is clammy, Skin is normal, Skin temperature is cool. 17:20 General: Appears uncomfortable, Behavior is anxious. Pain: Denies pain. Neuro: Level of mb9 Consciousness is awake, confused, Oriented to place. Respiratory: Airway is patent Respiratory effort is even, unlabored, Respiratory pattern is regular, symmetrical, pt intermittently coughing. 17:20 Derm: Skin is intact, Skin is clammy, Skin is normal, Skin temperature is cool. mb9 17:35 General: Appears uncomfortable, Behavior is anxious. Pain: Denies pain. Neuro: Level of mb9 Consciousness is awake, confused, Oriented to place, situation. 17:35 Respiratory: Airway is patent Respiratory effort is even, unlabored, Respiratory mb9 pattern is regular, symmetrical. Derm: Skin is intact, Skin is clammy, Skin is normal, Skin temperature is cool. 17:45 Reassessment: pt taken to CT. mb9 17:55 Reassessment: pt returned from CT. mb9 18:30 Pain: Denies pain. Neuro: Level of Consciousness is awake, obeys commands, confused, mb9 Oriented to person, place, time, situation, Appropriate for age. Respiratory: Airway is patent Respiratory effort is even, unlabored, Respiratory pattern is regular, symmetrical. Derm: Skin is intact, Skin is clammy, Skin is normal, Skin temperature is cool. 18:50 Reassessment: blood sugar 87. Gave pt apple juice and turkey sandwich. Dr. Vega mb9 notified. 19:10 Reassessment: pt passed PO challenge. mb9 20:19 Reassessment: No changes from previously documented assessment. Patient and/or family vc1 updated on plan of care and expected duration. Pain level reassessed. 20:56 Reassessment: Pt c/o cough and SOB, bilateral wheezing noted, notified Bennie Ohara NP, ll3 medicated as ordered. 21:22 Reassessment: No changes from previously documented assessment. Patient and/or family vc1 updated on plan of care and expected duration. Pain level reassessed. Vital Signs: 16:59 BP 158 / 88; Pulse 68; Resp 12; Temp 96.9; Pulse Ox 95% on R/A; mb9 17:30 BP 161 / 62; Pulse 65; Resp 20; Pulse Ox 98% on R/A; tw2 17:32 BP 161 / 62; Pulse 63; Resp 16; Pulse Ox 96% on R/A; mb9 18:30 BP 174 / 69; Pulse 72; Resp 22; Pulse Ox 96% on R/A; mb9 20:00 BP 175 / 85; Pulse 80; Resp 18; Pulse Ox 92% ; vc1 21:00 BP 181 / 94; Pulse 85; Resp 24; Pulse Ox 100% ; vc1 ED Course: 16:58 Patient arrived in ED. tw2 16:58 Lamont Vega MD is Attending Physician. rn 16:58 Arm band placed on. mb9 16:59 Monique Perez, BLAIR is Primary Nurse. mb9 17:20 EKG done, by ED staff, reviewed by Lamont Vega MD. mb9 17:25 Triage completed. mb9 17:43 XRAY Chest (1 view) In Process Unspecified. EDMS 17:52 CT Head Brain wo Cont In Process Unspecified. EDMS 18:59 Vladimir Casey MD is Hospitalizing Provider. rn 19:00 Patient has correct armband on for positive identification. Bed in low position. Call vc1 light in reach. Side rails up X2. 21:32 No provider procedures requiring assistance completed. Patient admitted, IV remains in vc1 place. Administered Medications: 17:08 Drug: D10 in Water [2 mL/kg] 250 ml Route: IVP; Site: right antecubital; mb9 17:31 Follow up: Response: No adverse reaction mb9 17:08 Drug: HydroCORTISONE 100 mg Route: IVP; Site: right antecubital; mb9 17:26 Follow up: Response: No adverse reaction mb9 19:10 Follow up: Response: No adverse reaction mb9 19:29 Drug: Tamiflu (oseltamivir) 75 mg Route: PO; ll3 19:29 Drug: D10 in Water [2 mL/kg] 250 ml Route: IVP; Site: right forearm; ll3 20:49 Drug: Albuterol - atroVENT (ipratropium) (3:1) (2.5 mg - 0.5 mg) 3 ml Route: Nebulizer; ll3 20:49 Drug: Tessalon Perle (benzonatate) 100 mg Route: PO; ll3 21:28 Drug: hydrALAZINE 10 mg Route: IVP; Site: right antecubital; ll3 Medication: 17:46 VIS not applicable for this client. mb9 Outcome: 19:00 Decision to Hospitalize by Provider. rn 21:32 Admitted to Med/surg accompanied by tech, via stretcher, room 219. vc1 21:32 Condition: good 21:32 Instructed on the need for admit. 21:33 Patient left the ED. vc1 Signatures: Dispatcher [employer] EDMS Lamont Vega MD MD rn Wise, Tara, RN RN 2 Kareem Langley RN RN ll3 Angie Peres RN RN vc1 Monique Perez RN RN mb9 Corrections: (The following items were deleted from the chart) 17:26 17:25 Arm band placed on mb9 mb9 17:35 16:59 Chief complaint: EMS states: family called 911 because pt was incoherent, pale, mb9 cold, and diaphoretic on scene. EMS states pts eyes are pinpoint and they found a bottle of hydrocodone on scene. mb9 17:39 17:33 Reassessment: [facility] gave 15g D10 mb9 mb9
[2022-04-09] MEDS ORDERED: OSELTAMIVIR 75 MG CAP ONE (19:19)
[2022-04-09] MEDS ORDERED: D10W 250 ML IV ONE (19:20)
[2022-04-09 20:13] LABS: Blood Morphology Comment NOT SEEN (NOT SEEN); Platelet Estimate ADEQ; White Blood Cell Scan OK (OK)
[2022-04-09] MEDS ORDERED: IPRATROPIUM BROM 0.5MG/2.5ML ONE (20:49)
[2022-04-09] MEDS ORDERED: ALBUTEROL 2.5 MG/3 ML NEB SOL ONE (20:49)
[2022-04-09] MEDS ORDERED: BENZONATATE 100 MG CAP PO ONE (20:49)
[2022-04-09] MEDS ORDERED: HYDRALAZINE HCL 20 MG/ML VIAL ONE (21:25)
--- NOTE | 2022-04-09 21:34 | P.HP ---
Certification for Inpatient Patient admitted to: Observation With expected LOS: <2 Midnights Patient will require the following post-hospital care: None Practitioner: I am a practitioner with admitting privileges, knowledge of patient current condition, hospital course, and medical plan of care. Services: Services provided to patient in accordance with Admission requirements found in Title 42 Section 412.3 of the Code of Federal Regulations <Bennie Ohara - Last Filed: 04/09/22 21:29> Patient History Date of Service: 04/09/22 Reason for admission: Hypoglycemia, influenza A History of Present Illness: 67-year-old female with history of ESRD on HD MWF, chronic diastolic congestive heart failure, diabetes mellitus type [id number], hypertension, hyperlipidemia presents the emergency department for altered mental status. EMS was called approximately status patient's blood sugar was noted to be in 20s she was given D10 by EMS and brought to the emergency department for further evaluation, patient mental status improved she reports that she has been feeling unwell since Friday, started having fever on Friday family had tested positive for influenza. Patient was evaluated in the emergency department her labs were significant for sodium 129 chloride 94 creatinine 7.3 GFR 6 glucose 148 influenza A positive head CT negative for acute findings chest x-ray shows mild CHF. Patient reports that she was unable to complete her dialysis on Friday as she had an episode of incontinence and the signs go home after receiving about half of her treatment she usually gets. Patient blood sugar dropped in the emergency department a few hours after presentation, eating she also takes a sulfonylurea at home for that reason ED provider wishes to admit observation for hypoglycemia, ESRD, influenza A. - Past Medical/Surgical History Diabetic: Yes -: HTN -: DM II with CKD & Polyneuropathy -: Metabolic Syndrome. Obesity. -: Dyslipidemia. -: Diastolic CHF -: ESRD (Dr. Retana) MWF -: PAD -: CVD -: Umbilical hernia repair x 2 -: Appendectomy -: Cystoscopy with Bladder Biopsy -: Hysteroscopy with D&C -: AVF Psychosocial/ Personal History: Patient lives at home with her daughter. - Family History Mother -: Diabetes, Kidney disease Father -: Other (see notes) Notes: Brain aneurysm - Social History Alcohol use: No CD- Drugs: No Caffeine use: Yes Place of Residence: Home <Bennie Ohara - Last Filed: 04/09/22 21:29> Date of Service: 04/10/22 <Vladimir Casey - Last Filed: 04/10/22 16:52> Allergies Penicillins Allergy (Severe, Verified 04/09/22 21:55) Anaphylaxis amoxicillin Adverse Reaction (Severe, Verified 04/09/22 21:55) Anaphylaxis levofloxacin Adverse Reaction (Intermediate, Verified 04/09/22 21:55) Headaches Home Medications: Benzonatate [Tessalon Perle] 100 mg PO TID PRN #20 cap 04/10/22 RX: Aspirin [Aspirin EC] 81 mg PO DAILY 04/10/22 RX: Atorvastatin Calcium [Lipitor*] 10 mg PO BEDTIME 04/10/22 RX: Calcium Carbonate [Tums Regular*] 1,000 mg PO TIDWM 04/10/22 RX: Carvedilol [Coreg] 3.125 mg PO BID 04/10/22 RX: Cholecalciferol (Vitamin D3) [Vitamin D3] 1,000 unit PO DAILY 04/10/22 RX: Clopidogrel Bisulfate [Plavix*] 75 mg PO DAILY 04/10/22 RX: Docusate [Colace Cap*] 100 mg PO DAILY 04/10/22 RX: Gabapentin 100 mg PO BEDTIME 04/10/22 RX: Lactulose [Cephulac*] 20 g PO TIDP PRN 04/10/22 RX: Losartan Potassium 12.5 mg PO BEDTIME 04/10/22 RX: Ondansetron [Zofran (Odt)*] 4 mg PO DAILY 04/10/22 RX: Oseltamivir Phosphate [Tamiflu] 30 mg PO EVERY HD #1 cap 04/10/22 RX: Vit B Comp C/Folic Acid/Vit D3 [Dialyvite 800 Plus D Wafer] 1 tab PO DAILY 04/10/22 Review of Systems 10-point ROS is otherwise unremarkable General: Fever, Chills, Malaise Respiratory: Shortness of Breath <Bennie Ohara - Last Filed: 04/09/22 21:29> Physical Examination - Physical Exam General: Alert, In no apparent distress, Oriented x3 HEENT: Atraumatic, PERRLA, Mucous membr. moist/pink, EOMI, Sclerae nonicteric Neck: Supple, 2+ carotid pulse no bruit, No LAD, Without JVD or thyroid abnormality Respiratory: Normal air movement, Diminished Cardiovascular: Regular rate/rhythm, Normal S1 S2 Capillary refill: <2 Seconds Gastrointestinal: Normal bowel sounds, No tenderness Musculoskeletal: No tenderness Integumentary: No rashes Neurological: Normal speech, Normal strength at 5/5 x4 extr, Normal tone, Normal affect - Studies Laboratory Data (last 24 hrs) 04/09/22 17:15: Sodium 129 L, Potassium 4.2, BUN 44 H, Creatinine 7.30 H*, Glucose 148 H 04/09/22 17:15: WBC 5.50, Hgb 11.9 L, Hct 36.0, Plt Count 229 <Bennie Ohara - Last Filed: 04/09/22 21:29> - Studies Laboratory Data (last 24 hrs) 04/09/22 17:15: Sodium 129 L, Potassium 4.2, BUN 44 H, Creatinine 7.30 H*, Glucose 148 H 04/09/22 17:15: WBC 5.50, Hgb 11.9 L, Hct 36.0, Plt Count 229 <Vladimir Csaey - Last Filed: 04/10/22 16:52> Assessment and Plan - Plan Assessment: DMII-non insulin dependent with hypoglycemia ESRD on HD MWF Infuenza A Acute on chronic diastolic congestive heart failure HTN HLD Plan: DMII-non insulin dependent with hypoglycemia: Takes glipizide, hold medication, patient eating, obtain a1c, monitor glucose closely, hold off on SSI until BGL persistently >200. ESRD on HD MWF: nephrology consulted for dialysis, complete 50% of treatment friday, appears mildly overloaded. Infuenza A: Tamiflu ordered- renally dosed. Acute on chronic diastolic congestive heart failure: Volume mgmt with dialysis, continue home meds. HTN:continue home meds HLD:continue home meds DVT PPX: Heparin Code status:Full Discharge Plan: Home Plan to discharge in: 24 Hours - Advance Directives Does patient have a Living Will: No Does patient have a Durable POA for Healthcare: No - Code Status/Comfort Care Code Status Assessed: Yes (full code) Critical Care: No Time Spent Managing Pts Care (In Minutes): 70 <Bennie Ohara - Last Filed: 04/09/22 21:29> Physician Review: Patient Assessed, Agree with Above Assessment and Plan <Vladimir Casey - Last Filed: 04/10/22 16:52>
[2022-04-09] MEDS ORDERED: ONDANSETRON 4 MG/2 ML VIAL IV PRN (21:52)
[2022-04-09 21:54] VITALS: BMI 40.7
[2022-04-09] MEDS: HEPARIN 5000 UNIT/ML 1 ML VIAL SQ SCH (22:54)
[2022-04-10 05:51] LABS: Albumin 3.1 g/dL (3.4-5.0); Bilirubin Total 0.4 mg/dL (0.2-1.0); Potassium 5.1 mmol/L (3.5-5.1); Protein, Total 6.7 g/dL (6.4-8.2)
[2022-04-10 05:52] LABS: Absolute Lymphocytes (CBC) 0.4 K/uL (0.7-4.9); Lymphocytes % 14.7 % (15.3-44.8); MCV 94.6 fL (80-100); MPV 9.2 fL (7.6-11.3); RBC Red Blood Cell Count 3.06 M/uL (3.86-4.86)
[2022-04-10 07:40] VITALS: BP 157/59; TEMP 98.4
[2022-04-10] MEDS: HEPARIN 5000 UNIT/ML 1 ML VIAL SQ SCH (09:28)
[2022-04-10 09:54] VITALS: O2SAT 100
--- NOTE | 2022-04-10 11:59 | P.CNS ---
Date of Consult: 04/10/22 Reason for Consult: ESRD Requesting Physician: Bennie Ohara Chief Complaint: Hypoglycemia, influenza A History of Present Illness: 67-year-old female with history of ESRD on HD MWF at [facility] with last HD on Mon although reports shorter treatment due to an accident with stooling, chronic diabetes mellitus type [id number] on PO glipizide, hypertension, and admission here about a 1 mo or more in the setting of acute vestibular neuritis vs TIA who reported to me on rounds Fri of re- developing dysuria (earlier in the summer she was having sig dysuria and hematuria and had a MDR Ecoli cystitis) and while I prescribed PO Fosfomycin, she apparently did not pick this up to cost. Over the weekend she had fevers, malaise but felt better Mon so came into treatment but did not report those symptoms. She left treatment Mon and was still having some upset stomach and yesterday family found her poorly responsive, altered, and she was found to be severely hypoglycemic. Today seen on HD, she is doing a bit better but still feels weak, she endorses some cough and shortness of breath. Allergies Penicillins Allergy (Severe, Verified 04/09/22 21:55) Anaphylaxis amoxicillin Adverse Reaction (Severe, Verified 04/09/22 21:55) Anaphylaxis levofloxacin Adverse Reaction (Intermediate, Verified 04/09/22 21:55) Headaches Home Medications: Aspirin [Aspirin EC] 81 mg PO DAILY 04/10/22 Atorvastatin Calcium [Lipitor*] 10 mg PO BEDTIME 04/10/22 Calcium Carbonate [Tums Regular*] 1,000 mg PO TIDWM 04/10/22 Carvedilol [Coreg] 3.125 mg PO BID 04/10/22 Cholecalciferol (Vitamin D3) [Vitamin D3] 1,000 unit PO DAILY 04/10/22 Clopidogrel Bisulfate [Plavix*] 75 mg PO DAILY 04/10/22 Docusate [Colace Cap*] 100 mg PO DAILY 04/10/22 Gabapentin 100 mg PO BEDTIME 04/10/22 Lactulose [Cephulac*] 20 g PO TIDP PRN 04/10/22 Losartan Potassium 12.5 mg PO BEDTIME 04/10/22 Ondansetron [Zofran (Odt)*] 4 mg PO DAILY 04/10/22 Vit B Comp C/Folic Acid/Vit D3 [Dialyvite 800 Plus D Wafer] 1 tab PO DAILY 04/10/22 glipiZIDE [Glipizide] 5 mg PO BID 04/10/22 - Past Medical/Surgical History Diabetic: Yes -: HTN -: DM II with CKD & Polyneuropathy -: Metabolic Syndrome. Obesity. -: Dyslipidemia. -: Diastolic CHF -: ESRD (Dr. Retana) MWF -: PAD -: CVD -: Umbilical hernia repair x 2 -: Appendectomy -: Cystoscopy with Bladder Biopsy -: Hysteroscopy with D&C -: AVF Psychosocial/ Personal History: Patient lives at home with her daughter. - Family History Mother Medical History: Diabetes, Kidney disease Father Medical History: Other (see notes) Notes: Brain aneurysm - Social History Alcohol use: No CD- Drugs: No Caffeine use: Yes Place of Residence: Home Review of Systems General: Fever, Weakness, Malaise Eyes: Unremarkable ENT: Unremarkable Respiratory: Cough, Shortness of Breath Cardiovascular: Edema Gastrointestinal: Nausea, Vomiting, Diarrhea Genitourinary: Dysuria, As per HPI Musculoskeletal: Unremarkable Integumentary: Unremarkable Neurological: Weakness, As per HPI Physical Examination Temp Pulse Resp BP Pulse Ox 98.4 F 75 18 157/59 H 100 04/10/22 11:43 04/10/22 11:43 04/10/22 11:43 04/10/22 11:43 04/10/22 11:43 General: Alert, Oriented x3, Cooperative HEENT: Atraumatic, Normocephalic, EOMI Neck: Supple Respiratory: Normal air movement, Diminished Cardiovascular: Regular rate/rhythm, Normal S1 S2, Edema Gastrointestinal: Soft and benign, No tenderness Musculoskeletal: No contractures, No erythema Integumentary: No rashes, No breakdown Neurological: Normal speech, Normal tone, Normal affect Laboratory Data (last 24 hrs) 04/09/22 17:15: Sodium 129 L, Potassium 4.2, BUN 44 H, Creatinine 7.30 H*, Glucose 148 H 04/09/22 17:15: WBC 5.50, Hgb 11.9 L, Hct 36.0, Plt Count 229 Conclusions/Impression: 1. ESRD 2. Hypoglycemic episode 3. Influenza infection 4. Chronic pulm edema 5. Hypertensive CKD V/ESRD 6. Dysuria 7. Anemia 2nd to CKD/other -HD today per OP dialysis schedule for metab clearance and UF as tolerated -Will target net UF of 2.5L -Pt was taking Glipizide at home and the use of sulfonylurea in the setting of reduced CrCl can further pre-dispose to hypoglycemia so would consider reducing dose and/or stopping, pt denies hypoglycemic episodes and this episode may have been precipitated by illness, poor PO intake, GI upset -Pt is on Tamiflu, dose renally. -Check UA, UCx given symptoms, straight cath to obtain specimen. Pt is typically oliguric Thank you for this referral, Pankaj Huber MD, [facility]
[2022-04-10 15:52] LABS: Specific Gravity 1.013 (1.005-1.030); Urine Bilirubin NEGATIVE (Negative); Urine Blood 2+ (Negative); Urine Clarity Extremely Turbid (Clear); Urine Color Orange (Yellow); Urine Glucose TRACE (Negative); Urine Protein 2+ (Negative); Urine RBC 21-50 /HPF (None Seen); Urine Urobilinogen Normal (Normal); Urine WBC Clump Many /HPF (None Seen)
--- NOTE | 2022-04-10 16:53 | P.DS ---
Admission Date: 04/09/22 Discharge Date: 04/10/22 Disposition: ROUTINE DISCHARGE Discharge Condition: GOOD Reason for Admission: Hypoglycemia, influenza A Consultations: 1. Nephrology Hospital Course: DIAGNOSES: # Acute Toxic Metabolic Encephalopathy secondary to Neuroglycopenia (resolved) # Hypoglycemia in Type II Diabetes Mellitus # Acute on Chronic Decompensated Congestive Heart Failure (improved) # Hypervolemia in End-Stage Renal Disease on MWF Hemodialysis # Influenza A Infection # Hypervolemic Hyponatremia # Recent admission due to Concern for Acute Cerebrovascular Accident s/p Tenecteplase # Severe Aortic Stenosis # Hypertension HOSPITAL COURSE: Ms. Abby Meredith is a pleasant 67 year old female with a past medical history significant for end-stage renal disease on MWF iHD, chronic congestive heart failure, type II diabetes mellitus, and hypertension who was admitted to the [facility] on 04/09/2022 for hypoglycemia and influenza A infection. Prior to admission, she was noted to be altered, and reportedly had a blood glucose level in the 20s prior to presenting to the hospital. Upon arrival to the hospital, her glucose levels have remained stable. She was admitted to the Medicine service. Her laboratory evaluation was notable for mild hyponatremia. CT head revealed, "no acute intracranial abnormality." She tested positive for influenza A. Chest x-ray revealed, "mild CHF." Nephrology was consulted and she was evaluated by Dr. Huber. She underwent hemodialysis today and did well. We were planning to monitor her for additional day; however, she stated that she feels well and would like to go home. I discussed this with Dr. Huber, who felt this was reasonable. She does have microscopic hematuria and had mild right hydronephrosis on her CT abdomen/pelvis from her last admission. She was advised to follow this up with Urology in the outpatient setting. Dr. Huber states that he will schedule her for an appointment in his clinic on 04/12/2022. Physical therapy was consulted and she ambulated with the physical therapist, maintaining adequate SPO2 readings on room air. I have advised that she completely discontinue glipizide and I have updated her PCP (Dr. Thomas) regarding her hospital stay. On 04/10/2022, she was seen on rounds and deemed medically stable for discharge. She was discharged with instructions to schedule follow-up appointments with her PCP (Dr. Thomas), with Urology (Dr. Elise), and with Nephrology (Dr. Huber). She was provided prescriptions for oseltamivir and benzonatate. She was given the opportunity to ask questions and reported no further questions. Furthermore, all questions were answered to the best of my ability. A copy of this discharge summary will be sent to the above providers to f acilitate continuity of care. Today, I personally spent 25 minutes on her case, of which greater than 50% of the time was spent in patient education, counseling, and coordination of care as described above. Vital Signs/Physical Exam: Temp Pulse Resp BP Pulse Ox 98.4 F 75 18 157/59 H 100 04/10/22 11:43 04/10/22 11:43 04/10/22 11:43 04/10/22 11:43 04/10/22 11:43 General: Alert, In no apparent distress, Oriented x3 HEENT: Atraumatic, PERRLA, Mucous membr. moist/pink, EOMI, Sclerae nonicteric Neck: Supple, JVD not distended Respiratory: Clear to auscultation bilaterally, Normal air movement, Diminished Cardiovascular: No edema, Regular rate/rhythm, Normal S1 S2, No gallops, No rubs, No murmurs Capillary refill: <2 Seconds Gastrointestinal: Normal bowel sounds, Soft and benign, Non-distended, No tenderness, No rebound, No guarding Musculoskeletal: No clubbing Integumentary: No rashes Neurological: Normal speech, Cranial nerves 3-12 intact, Normal affect Laboratory Data at Discharge: WBC 2.90 K/uL (4.3-10.9) L 04/10/22 03:02 Hgb 9.8 g/dL (12.0-15.0) L D 04/10/22 03:02 Hct 29.0 % (36.0-45.0) L 04/10/22 03:02 Plt Count 105 K/uL (152-406) L D 04/10/22 03:02 Sodium Cancelled 04/10/22 16:06 Potassium Cancelled 04/10/22 16:06 BUN Cancelled 04/10/22 16:06 Creatinine Cancelled 04/10/22 16:06 Glucose Cancelled 04/10/22 16:06 Total Bilirubin 0.4 mg/dL (0.2-1.0) 04/10/22 03:02 AST 20 U/L (15-37) 04/10/22 03:02 ALT 25 U/L (12-78) 04/10/22 03:02 Alkaline Phosphatase 82 U/L (45-117) 04/10/22 03:02 Home Medications: Aspirin [Aspirin EC] 81 mg PO DAILY 04/10/22 Atorvastatin Calcium [Lipitor*] 10 mg PO BEDTIME 04/10/22 Benzonatate [Tessalon Perle] 100 mg PO TID PRN #20 cap 04/10/22 Calcium Carbonate [Tums Regular*] 1,000 mg PO TIDWM 04/10/22 Carvedilol [Coreg] 3.125 mg PO BID 04/10/22 Cholecalciferol (Vitamin D3) [Vitamin D3] 1,000 unit PO DAILY 04/10/22 Clopidogrel Bisulfate [Plavix*] 75 mg PO DAILY 04/10/22 Docusate [Colace Cap*] 100 mg PO DAILY 04/10/22 Gabapentin 100 mg PO BEDTIME 04/10/22 Lactulose [Cephulac*] 20 g PO TIDP PRN 04/10/22 Losartan Potassium 12.5 mg PO BEDTIME 04/10/22 Ondansetron [Zofran (Odt)*] 4 mg PO DAILY 04/10/22 Oseltamivir Phosphate [Tamiflu] 30 mg PO EVERY HD #1 cap 04/10/22 Vit B Comp C/Folic Acid/Vit D3 [Dialyvite 800 Plus D Wafer] 1 tab PO DAILY 04/10/22 New Medications: Oseltamivir Phosphate [Tamiflu] 30 mg PO EVERY HD #1 cap Benzonatate [Tessalon Perle] 100 mg PO TID PRN #20 cap PRN Reason: Cough Physician Discharge Instructions: 1. Please schedule a follow-up appointment with your PCP (Dr. Thomas) in 3-5 days 2. Please attend your follow-up appointment with Nephrology (Dr. Huber) on 04/12/2022 3. Please schedule a follow-up appointment with Urology (Dr. Elise) in 5-7 days 4. Please completely stop taking your glipizide and monitor your sugar levels at home Diet: Renal Activity: Ad olesya Followup: Pankaj Huber [ACTIVE - CAN ADMIT] - Juan Manuel Thomas MD [COURTESY - CAN ADMIT] - Jere Elise [ACTIVE - CAN ADMIT] - Time spent managing pt's care (in minutes): 25
[2022-04-10] MEDS ORDERED: OSELTAMIVIR 30 MG CAP PO SCH (21:00)
--- NOTE | 2022-04-11 06:34 | EKG ---
Test Date: 2022-04-09 Test Time: 17:20:28 Piano Regulator: MB MEASUREMENT RESULTS: Intervals: Rate: 64 [place]: QRSD: 124 QT: 488 QTc: 503 [place]: P: [place]: QRS: 11 T: 38 INTERPRETIVE STATEMENTS: Wide QRS rhythm Possible Anterior infarct, age undetermined Abnormal ECG Compared to ECG 02/24/2022 16:25:33 Uncertain supraventricular rhythm now present Sinus rhythm no longer present Left-axis deviation no longer present Myocardial infarct finding still present Electronically Signed On 04-11-22 06:30:43 CABLE TOOL OPERATOR by Steven Mcpherson
--- NOTE | 2022-04-18 17:56 | P.PN ---
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 I spoke with her early childhood teacher assistant, Dr. 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 He is scheduled to see her tomorrow morning. He states that he will follow-up on these results. Vladimir Casey M.D.
== END 2022-04-10 17:01 | disposition home or self-care (01) ==
LOC: ER 16:57 → ERHOLD 19:55 → 2ND 20:16
PROVIDERS: ADMIT Internal Medicine; ATTEND Internal Medicine
DX: G92.8 Other toxic encephalopathy (principal); N18.6 End stage renal disease; E11.22 Type 2 diabetes mellitus with diabetic chronic kidney disease; I12.0 Hypertensive chronic kidney disease with stage 5 chronic kidney disease or end stage renal disease; J81.1 Chronic pulmonary edema; R30.0 Dysuria; D63.1 Anemia in chronic kidney disease; R41.82 Altered mental status, unspecified; J09.X2 Influenza due to identified novel influenza A virus with other respiratory manifestations; E87.1 Hypo-osmolality and hyponatremia; E87.70 Fluid overload, unspecified; I35.0 Nonrheumatic aortic (valve) stenosis; I50.9 Heart failure, unspecified; E16.2 Hypoglycemia, unspecified; Z91.15 Patient's noncompliance with renal dialysis; Z88.0 Allergy status to penicillin; Z88.1 Allergy status to other antibiotic agents; Z88.8 Allergy status to other drugs, medicaments and biological substances; Z99.2 Dependence on renal dialysis; Z20.822 Contact with and (suspected) exposure to COVID-19
CPT/HCPCS: 93005; 87088; 85025 ×2; 81001; 87086; 80048; 36415; 82947 ×9; 83036; 80053; 83880; 0241U; 70450; 71045; 90935 ×2; 97161; 94010; 94640; 96375; 96374; 99285; J0360; J1644 ×3; J1720; 87077; 87186; G0257; G0378

== ENCOUNTER 2023-08-20 09:11 | Inpatient (IN) | payer OTHER ==
--- OUTSIDE RECORDS SUMMARY | 2023-08-20 09:17 | XMS REPORT | Continuity of Care Document ---
Author Name Unknown Address [address] [place] [address] [facility] thconnect Address [address] [place] [address] Care Team Providers Care Operations Vice President Name Role Phone SYSTEM, PCP NOT IN Primary Care Physician ERICH Lee Attending Clinician Unavailable [email or web address] Attending Clinician UnavailDARRIN Rodgers Attending Clinician Unavailab Darrin Walton MD Attending Clinician [phone] Doctor Unassigned, [place] Attending Clinician U Zahida Sabillon Attending Clinician EMMA HA Attending Clinician Unavailable [email or web address]_S Admitting Clinician DARRIN Silva Admitting Clinician Unavailab art Payers Payer Name Policy Type Policy Number Effective Date Expirati on Date Source MEDICARE PART A \T\ B [id number] 2020 00:00:00 [place] [id number] 2021 00:00:00 Problems Condition Name Condition Details Condition Category Status Onset Date Resolution Date Last Treatment Date Treating Clinician Comments Source Morbid obesity with body mass index of 40.0-49.9 Morbid obesity with body mass index of 40.0-49.9 Disease Active 02-01 00:00: 00 [facility] Morbid obesity with body mass index of 40.0-49.9 Morbid obesity with body mass index of 40.0-49.9 Disease Active 02-01 00:00: 00 [facility] Acute respirator y disease due to COVID-19 virus Acute respirator y disease due to COVID-19 virus Disease Active 01-13 00:00: 00 [facility] Obesity (BMI 30-39.9) Obesity (BMI 30-39.9) Disease Active 01-13 00:00: 00 [facility] Urinary tract obstructio n Obstructiv e and reflux uropathy, unspecifie d Problem [facility] [id number] Cerebrovas cular accident (CVA), unspecifie d mechanism Problem [facility] [id number] End stage renal disease Problem [facility] [id number] Cystitis bacillary, chronic Problem [facility] [id number] Hydronephr osis, right Problem [facility] [id number] Recurrent UTI Problem [facility] [id number] Dependence on renal dialysis Problem [facility] [id number] Cystitis Problem [facility] [id number] Gross hematuria Problem [facility] [id number] Suprapubic pain Problem [facility] [id number] Lower urinary tract symptoms (LUTS) Problem [facility] [id number] Pelvic pain Problem [facility] [id number] Acute lower UTI Problem [facility] [id number] Acute cystitis with hematuria Problem [facility] Allergies, Adverse Reactions, Alerts Allergy Name Allergy Type Status Severity Reaction(s) Onset Date Inactive Date Treating Clinician Comments Source Penicill in Propensi ty to adverse reaction s Active Anaphylaxis 2014-06 00:00: [address] [facility] PENICILL IN DRUG INGREDI Active Anaphylaxis 2014-06 00:00: [address] [facility] [id number] Drug allergy Active Unknown [facility] Social History Social Habit Start Date Stop Date Quantity Comments Source History of Tobacco Use [facility] Sex Assigned At [facility] Exposure to SARS-CoV-2 (event) 2021-09-17 00:00:00 2021-09-27 09:49:00 Not sure [facility] History SDOH Transport Med 2020-01-14 00:00:00 2020-01-14 00:00:00 2 [facility] History SDOH Transport Non-Med 2020-01-14 00:00:00 2020-01-14 00:00:00 2 [facility] Tobacco use and exposure 2020-01-14 00:00:00 2020-01-14 00:00:00 Never used [facility] Alcohol intake 2020-01-14 00:00:00 2020-01-14 00:00:00 0 /d [facility] History SDOH Financial 2020-01-14 00:00:00 2020-01-14 00:00:00 1 [facility] History SDOH Food Worry 2020-01-14 00:00:00 2020-01-14 00:00:00 3 [facility] History SDOH Food Scarcity 2020-01-14 00:00:00 2020-01-14 00:00:00 3 [facility] Smoking Status Start Date Stop Date Source Never Smoker [facility] Medications Ordered Medication Name Filled Medication Name Start Date Stop Date Current Medication? Ordering Clinician Indication Dosage Frequency Signature (SIG) Comments Components Source Meropenem 500 MG Meropenem 500 MG 8- 00:00: 00 02-04 00:00 :00 No Meropenem 500 MG Ditropan 5mg Ditropan 5mg 2021- 7-14 00:00: 00 02-11 00:00 :00 No Ditropan 5mg Ditropan 5mg Ditropan 5mg 7-14 00:00: 00 02-11 00:00 :00 No Ditropan 5mg Ditropan 5mg Ditropan 5mg 7-14 00:00: 00 02-11 00:00 :00 No Ditropan 5mg Bactrim DS 800-160 MG Bactrim DS 800-160 MG 6-30 00:00: 00 12-09 00:00 :00 No Bactrim DS 800-160 MG aspirin 81 mg chewable tablet 02-09 00:00: 05-11 05:59 :00 No [id number] 81mg Take 1 tablet by mouth daily for 90 days. [facility] cholecalcif filiberto, vitamin D3, 25 mcg (1,000 unit) tablet 02-09 00:00: 05-11 05:59 :00 No [id number] 1000U Take 1 tablet by mouth daily for 90 days. [facility] aspirin 81 mg chewable tablet 02-09 00:00: 05-11 05:59 :00 No [id number] 81mg Take 1 tablet by mouth daily for 90 days. [facility] cholecalcif filiberto, vitamin D3, 25 mcg (1,000 unit) tablet 02-09 00:00: 05-11 05:59 :00 No [id number] 1000U Take 1 tablet by mouth daily for 90 days. [facility] ferrous sulfate 325 mg (65 mg iron) tablet 02-09 00:00: 03-12 04:59 :00 No [id number] 325mg Take 1 tablet by mouth daily for 30 days. [facility] ferrous sulfate 325 mg (65 mg iron) tablet 02-09 00:00: 03-12 04:59 :00 No [id number] 325mg Take 1 tablet by mouth daily for 30 days. [facility] naproxen sodium (ALEVE) 220 mg capsule 02-08 21:56: 18 Yes 220{cap johan} Take 220 Caps by mouth as needed. [facility] naproxen sodium (ALEVE) 220 mg capsule 02-08 21:56: 18 Yes 220{cap johan} Take 220 Caps by mouth as needed. [facility] naproxen sodium (ALEVE) 220 mg capsule 02-08 16:56: 18 Yes 220{cap johan} Take 220 Caps by mouth as needed. [facility] naproxen sodium (ALEVE) 220 mg capsule 02-08 16:56: 18 Yes 220{cap johan} Take 220 Caps by mouth as needed. [facility] naproxen sodium (ALEVE) 220 mg capsule 02-08 16:56: 18 Yes 220{cap johan} Take 220 Caps by mouth as needed. [facility] Lancets Misc 20200 02-08 00:00: 00 Yes [id number] Use as directed [facility] Blood-Gluco se Meter Kit 0 02-08 00:00: 00 Yes [id number] Use as directed [facility] Blood Glucose Strip-Disp Meter Kit 0 02-08 00:00: 00 Yes [id number] Use as directed [facility] Lancets Misc 0 02-08 00:00: 00 Yes [id number] Use as directed [facility] Blood-Gluco se Meter Kit 0 02-08 00:00: 00 Yes [id number] Use as directed [facility] Blood Glucose Strip-Disp Meter Kit 02-08 00:00: 00 Yes [id number] Use as directed [facility] Lancets Misc 20200 02-08 00:00: 00 Yes [id number] Use as directed [facility] Blood-Gluco se Meter Kit 0 02-08 00:00: 00 Yes [id number] Use as directed [facility] Blood Glucose Strip-Disp Meter Kit 0 02-08 00:00: 00 Yes [id number] Use as directed [facility] Lancets Misc 20200 02-08 00:00: 00 Yes [id number] Use as directed [facility] Blood-Gluco se Meter Kit 20200 02-08 00:00: 00 Yes [id number] Use as directed [facility] Blood Glucose Strip-Disp Meter Kit 02-08 00:00: 00 Yes [id number] Use as directed [facility] Lancets Misc 02-08 00:00: 00 Yes [id number] Use as directed [facility] Blood-Gluco se Meter Kit 02-08 00:00: 00 Yes [id number] Use as directed [facility] Blood Glucose Strip-Disp Meter Kit 02-08 00:00: 00 Yes [id number] Use as directed [facility] amLODIPine 10 mg tablet 02-08 00:00: 00 05-10 05:59 :00 No [id number] 10mg Take 1 tablet by mouth daily for 90 days. [facility] carvediloL 12.5 mg tablet 02-08 00:00: 00 05-10 05:59 :00 No [id number] 12.5mg Take 1 tablet by mouth 2 (two) times daily with meals for 90 days. [facility] sennosides 8.6 mg tablet 02-08 00:00: 05-10 05:59 :00 No [id number] 8.6mg Take 1 tablet by mouth 2 (two) times daily for 90 days. [facility] Insulin Glargine (LANTUS SOLOSTAR U-100 INSULIN) 100 unit/mL (3 mL) injection 02-08 00:00: 05-10 05:59 :00 No [id number] 20U inject 20 Units under the skin at bedtime for 90 days. [facility] hydrALAZINE 25 mg tablet 02-08 00:00: 00 05-10 05:59 :00 No [id number] 25mg Take 1 tablet by mouth 2 (two) times daily for 90 days. [facility] amLODIPine 10 mg tablet 02-08 00:00: 00 05-10 05:59 :00 No [id number] 10mg Take 1 tablet by mouth daily for 90 days. [facility] carvediloL 12.5 mg tablet 02-08 00:00: 05-10 05:59 :00 No [id number] 12.5mg Take 1 tablet by mouth 2 (two) times daily with meals for 90 days. [facility] sennosides 8.6 mg tablet 02-08 00:00: 00 05-10 05:59 :00 No [id number] 8.6mg Take 1 tablet by mouth 2 (two) times daily for 90 days. [facility] Insulin Glargine (LANTUS SOLOSTAR U-100 INSULIN) 100 unit/mL (3 mL) injection 02-08 00:00: 05-10 05:59 :00 No [id number] 20U inject 20 Units under the skin at bedtime for 90 days. [facility] hydrALAZINE 25 mg tablet 02-08 00:00: 05-10 05:59 :00 No [id number] 25mg Take 1 tablet by mouth 2 (two) times daily for 90 days. [facility] furosemide 40 mg tablet 01-09 00:00: 00 Yes TAKE 1 TABLET BY MOUTH TWICE A DAY [facility] gabapentin 100 mg capsule 01-09 00:00: 00 Yes TAKE BY MOUTH 2 CAPSULES 3 TIMES A DAY NEEDED FOR PAIN [facility] furosemide 40 mg tablet 01-09 00:00: 00 Yes TAKE 1 TABLET BY MOUTH TWICE A DAY [facility] gabapentin 100 mg capsule 01-09 00:00: 00 Yes TAKE BY MOUTH 2 CAPSULES 3 TIMES A DAY NEEDED FOR PAIN [facility] furosemide 40 mg tablet 01-09 00:00: 00 Yes TAKE 1 TABLET BY MOUTH TWICE A DAY [facility] gabapentin 100 mg capsule 01-09 00:00: 00 Yes TAKE BY MOUTH 2 CAPSULES 3 TIMES A DAY NEEDED FOR PAIN [facility] furosemide 40 mg tablet 01-09 00:00: 00 Yes TAKE 1 TABLET BY MOUTH TWICE A DAY [facility] gabapentin 100 mg capsule 8 00:00: 00 Yes TAKE BY MOUTH 2 CAPSULES 3 TIMES A DAY NEEDED FOR PAIN [facility] furosemide 40 mg tablet 01-09 00:00: 00 Yes TAKE 1 TABLET BY MOUTH TWICE A DAY [facility] gabapentin 100 mg capsule 01-09 00:00: 00 Yes TAKE BY MOUTH 2 CAPSULES 3 TIMES A DAY NEEDED FOR PAIN [facility] cyclobenzap rine 10 mg tablet 2018-06 00:00: 00 Yes 10mg Take 10 mg by mouth. [facility] metoclopram renato HCl 5 mg tablet 2018-06 00:00: 00 Yes 5mg Take 5 mg by mouth. [facility] pantoprazol e 40 mg EC tablet 2018-06 00:00: 00 Yes 40mg Take 40 mg by mouth. [facility] pravastatin 40 mg tablet 2018-06 00:00: 00 Yes 40mg Take 40 mg by mouth. [facility] cyclobenzap rine 10 mg tablet 2018-06 00:00: 00 Yes 10mg Take 10 mg by mouth. [facility] metoclopram renato HCl 5 mg tablet 2018-06 00:00: 00 Yes 5mg Take 5 mg by mouth. [facility] pantoprazol e 40 mg EC tablet 2018-06 00:00: 00 Yes 40mg Take 40 mg by mouth. [facility] pravastatin 40 mg tablet 2018-06 00:00: 00 Yes 40mg Take 40 mg by mouth. [facility] cyclobenzap rine 10 mg tablet 2018-06 00:00: 00 Yes 10mg Take 10 mg by mouth. [facility] metoclopram renato HCl 5 mg tablet 2018-06 00:00: 00 Yes 5mg Take 5 mg by mouth. [facility] pantoprazol e 40 mg EC tablet 2018-06 00:00: 00 Yes 40mg Take 40 mg by mouth. [facility] pravastatin 40 mg tablet 2018-06 00:00: 00 Yes 40mg Take 40 mg by mouth. [facility] cyclobenzap rine 10 mg tablet 2018-06 00:00: 00 Yes 10mg Take 10 mg by mouth. [facility] metoclopram renato HCl 5 mg tablet 2018-06 00:00: 00 Yes 5mg Take 5 mg by mouth. [facility] pantoprazol e 40 mg EC tablet 2018-06 00:00: 00 Yes 40mg Take 40 mg by mouth. [facility] pravastatin 40 mg tablet 2018-06 00:00: 00 Yes 40mg Take 40 mg by mouth. [facility] cyclobenzap rine 10 mg tablet 2018-06 00:00: 00 Yes 10mg Take 10 mg by mouth. [facility] metoclopram renato HCl 5 mg tablet 2018-06 00:00: 00 Yes 5mg Take 5 mg by mouth. [facility] pantoprazol e 40 mg EC tablet 2018-06 00:00: 00 Yes 40mg Take 40 mg by mouth. [facility] pravastatin 40 mg tablet 2018-06 00:00: 00 Yes 40mg Take 40 mg by mouth. [facility] Renvela 800 MG Renvela 800 MG No 1{table t_with_ meals} TID Renvela 800 MG Dialyvite - Dialyvite - No 1{table t} QD Dialyvite - Gabapentin 100 MG Gabapentin 100 MG No 1{capsu le} QD Gabapentin 100 MG Aspirin 81 81 MG Aspirin 81 81 MG No 1{table t} QD Aspirin 81 81 MG Lactulose 20 GM/30ML Lactulose 20 GM/30ML No 15{ml} QD Lactulose 20 GM/30ML Colace 100 MG Colace 100 MG No 1{capsu le_as_n eeded} QD Colace 100 MG glipiZIDE 5 MG glipiZIDE 5 MG No QD glipiZIDE 5 MG Carvedilol 3.125 MG Carvedilol 3.125 MG No 1{table t_with_ food} BID Carvedilol 3.125 MG Renvela 800 MG Renvela 800 MG No 1{table t_with_ meals} TID Renvela 800 MG Lactulose 20 GM/30ML Lactulose 20 GM/30ML No 15{ml} QD Lactulose 20 GM/30ML Losartan Potassium 25 MG Losartan Potassium 25 MG No QD Losartan Potassium 25 MG glipiZIDE 5 MG glipiZIDE 5 MG No QD glipiZIDE 5 MG Dialyvite - Dialyvite - No 1{table t} QD Dialyvite - Vitamin D3 [id number] UNIT/GM Vitamin D3 6901746 UNIT/GM No Vitamin D3 4206191 UNIT/GM Aspirin 81 81 MG Aspirin 81 81 MG No 1{table t} QD Aspirin 81 81 MG Colace 100 MG Colace 100 MG No 1{capsu le_as_n eeded} QD Colace 100 MG Gabapentin 100 MG Gabapentin 100 MG No 1{capsu le} QD Gabapentin 100 MG Losartan Potassium 25 MG Losartan Potassium 25 MG No QD Losartan Potassium 25 MG Ondansetron Ondansetron No On dansetro n Atorvastati n Calcium 10 MG Atorvastati n Calcium 10 MG No 1{table t} QD Atorvastat in Calcium 10 MG Aspirin 81 81 MG Aspirin 81 81 MG No 1{table t} QD Aspirin 81 81 MG Dialyvite - Dialyvite - No 1{table t} QD Dialyvite - glipiZIDE 5 MG glipiZIDE 5 MG No QD glipiZIDE 5 MG Renvela 800 MG Renvela 800 MG No 1{table t_with_ meals} TID Renvela 800 MG Carvedilol 3.125 MG Carvedilol 3.125 MG No 1{table t_with_ food} BID Carvedilol 3.125 MG Gabapentin 100 MG Gabapentin 100 MG No 1{capsu le} QD Gabapentin 100 MG Plavix 75 MG Plavix 75 MG No 1{table t} QD Plavix 75 MG Lactulose 20 GM/30ML Lactulose 20 GM/30ML No 15{ml} QD Lactulose 20 GM/30ML Colace 100 MG Colace 100 MG No 1{capsu le_as_n eeded} QD Colace 100 MG Vitamin D3 2338349 UNIT/GM Vitamin D3 2958619 UNIT/GM No Vitamin D3 7982547 UNIT/GM Colace 100 MG Colace 100 MG No 1{capsu le_as_n eeded} QD Colace 100 MG Vitamin D3 5219779 UNIT/GM Vitamin D3 2585573 UNIT/GM No Vitamin D3 0785662 UNIT/GM Aspirin 81 81 MG Aspirin 81 81 MG No 1{table t} QD Aspirin 81 81 MG Plavix 75 MG Plavix 75 MG No 1{table t} QD Plavix 75 MG Atorvastati n Calcium 10 MG Atorvastati n Calcium 10 MG No 1{table t} QD Atorvastat in Calcium 10 MG Carvedilol 3.125 MG Carvedilol 3.125 MG No 1{table t_with_ food} BID Carvedilol 3.125 MG Ondansetron Ondansetron No On dansetro n Renvela 800 MG Renvela 800 MG No 1{table t_with_ meals} TID Renvela 800 MG glipiZIDE 5 MG glipiZIDE 5 MG No QD glipiZIDE 5 MG Dialyvite - Dialyvite - No 1{table t} QD Dialyvite - Lactulose 20 GM/30ML Lactulose 20 GM/30ML No 15{ml} QD Lactulose 20 GM/30ML Losartan Potassium 25 MG Losartan Potassium 25 MG No QD Losartan Potassium 25 MG Gabapentin 100 MG Gabapentin 100 MG No 1{capsu le} QD Gabapentin 100 MG Colace 100 MG Colace 100 MG No 1{capsu le_as_n eeded} QD Colace 100 MG Vitamin D3 9550972 UNIT/GM Vitamin D3 4886857 UNIT/GM No Vitamin D3 5722567 UNIT/GM Aspirin 81 81 MG Aspirin 81 81 MG No 1{table t} QD Aspirin 81 81 MG Plavix 75 MG Plavix 75 MG No 1{table t} QD Plavix 75 MG Atorvastati n Calcium 10 MG Atorvastati n Calcium 10 MG No 1{table t} QD Atorvastat in Calcium 10 MG Carvedilol 3.125 MG Carvedilol 3.125 MG No 1{table t_with_ food} BID Carvedilol 3.125 MG Ondansetron Ondansetron No On dansetro n Renvela 800 MG Renvela 800 MG No 1{table t_with_ meals} TID Renvela 800 MG glipiZIDE 5 MG glipiZIDE 5 MG No QD glipiZIDE 5 MG Dialyvite - Dialyvite - No 1{table t} QD Dialyvite - Lactulose 20 GM/30ML Lactulose 20 GM/30ML No 15{ml} QD Lactulose 20 GM/30ML Losartan Potassium 25 MG Losartan Potassium 25 MG No QD Losartan Potassium 25 MG Gabapentin 100 MG Gabapentin 100 MG No 1{capsu le} QD Gabapentin 100 MG Colace 100 MG Colace 100 MG No 1{capsu le_as_n eeded} QD Colace 100 MG Vitamin D3 8189638 UNIT/GM Vitamin D3 4832526 UNIT/GM No Vitamin D3 3245668 UNIT/GM Aspirin 81 81 MG Aspirin 81 81 MG No 1{table t} QD Aspirin 81 81 MG Plavix 75 MG Plavix 75 MG No 1{table t} QD Plavix 75 MG Atorvastati n Calcium 10 MG Atorvastati n Calcium 10 MG No 1{table t} QD Atorvastat in Calcium 10 MG Carvedilol 3.125 MG Carvedilol 3.125 MG No 1{table t_with_ food} BID Carvedilol 3.125 MG Ondansetron Ondansetron No On dansetro n Renvela 800 MG Renvela 800 MG No 1{table t_with_ meals} TID Renvela 800 MG glipiZIDE 5 MG glipiZIDE 5 MG No QD glipiZIDE 5 MG Dialyvite - Dialyvite - No 1{table t} QD Dialyvite - Lactulose 20 GM/30ML Lactulose 20 GM/30ML No 15{ml} QD Lactulose 20 GM/30ML Losartan Potassium 25 MG Losartan Potassium 25 MG No QD Losartan Potassium 25 MG Gabapentin 100 MG Gabapentin 100 MG No 1{capsu le} QD Gabapentin 100 MG Losartan Potassium 25 MG Losartan Potassium 25 MG No QD Losartan Potassium 25 MG Ondansetron Ondansetron No On dansetro n Atorvastati n Calcium 10 MG Atorvastati n Calcium 10 MG No 1{table t} QD Atorvastat in Calcium 10 MG Aspirin 81 81 MG Aspirin 81 81 MG No 1{table t} QD Aspirin 81 81 MG Dialyvite - Dialyvite - No 1{table t} QD Dialyvite - glipiZIDE 5 MG glipiZIDE 5 MG No QD glipiZIDE 5 MG Renvela 800 MG Renvela 800 MG No 1{table t_with_ meals} TID Renvela 800 MG Carvedilol 3.125 MG Carvedilol 3.125 MG No 1{table t_with_ food} BID Carvedilol 3.125 MG Gabapentin 100 MG Gabapentin 100 MG No 1{capsu le} QD Gabapentin 100 MG Plavix 75 MG Plavix 75 MG No 1{table t} QD Plavix 75 MG Lactulose 20 GM/30ML Lactulose 20 GM/30ML No 15{ml} QD Lactulose 20 GM/30ML Colace 100 MG Colace 100 MG No 1{capsu le_as_n eeded} QD Colace 100 MG Vitamin D3 1365448 UNIT/GM Vitamin D3 7407240 UNIT/GM No Vitamin D3 0961131 UNIT/GM Renvela 800 MG Renvela 800 MG No 1{table t_with_ meals} TID Renvela 800 MG Gabapentin 100 MG Gabapentin 100 MG No 1{capsu le} QD Gabapentin 100 MG Lactulose 20 GM/30ML Lactulose 20 GM/30ML No 15{ml} QD Lactulose 20 GM/30ML Losartan Potassium 25 MG Losartan Potassium 25 MG No QD Losartan Potassium 25 MG Dialyvite - Dialyvite - No 1{table t} QD Dialyvite - Carvedilol 3.125 MG Carvedilol 3.125 MG No 1{table t_with_ food} BID Carvedilol 3.125 MG glipiZIDE 5 MG glipiZIDE 5 MG No QD glipiZIDE 5 MG Aspirin 81 81 MG Aspirin 81 81 MG No 1{table t} QD Aspirin 81 81 MG Vitamin D3 7995284 UNIT/GM Vitamin D3 4215555 UNIT/GM No Vitamin D3 6705405 UNIT/GM Colace 100 MG Colace 100 MG No 1{capsu le_as_n eeded} QD Colace 100 MG Aspirin 81 81 MG Aspirin 81 81 MG No 1{table t} QD Aspirin 81 81 MG Gabapentin 100 MG Gabapentin 100 MG No 1{capsu le} QD Gabapentin 100 MG Lactulose 20 GM/30ML Lactulose 20 GM/30ML No 15{ml} QD Lactulose 20 GM/30ML Losartan Potassium 25 MG Losartan Potassium 25 MG No QD Losartan Potassium 25 MG Vitamin D3 6771337 UNIT/GM Vitamin D3 3289056 UNIT/GM No Vitamin D3 7586321 UNIT/GM Colace 100 MG Colace 100 MG No 1{capsu le_as_n eeded} QD Colace 100 MG glipiZIDE 5 MG glipiZIDE 5 MG No QD glipiZIDE 5 MG Dialyvite - Dialyvite - No 1{table t} QD Dialyvite - Carvedilol 3.125 MG Carvedilol 3.125 MG No 1{table t_with_ food} BID Carvedilol 3.125 MG Renvela 800 MG Renvela 800 MG No 1{table t_with_ meals} TID Renvela 800 MG Carvedilol 3.125 MG Carvedilol 3.125 MG No 1{table t_with_ food} BID Carvedilol 3.125 MG Vitamin D3 8969327 UNIT/GM Vitamin D3 1437073 UNIT/GM No Vitamin D3 1748080 UNIT/GM Losartan Potassium 25 MG Losartan Potassium 25 MG No QD Losartan Potassium 25 MG Vital Signs Vital Name Observation Time Observation Value Comments S ource height 2022-06-13 11:15:00 62 [in_i] Commo n [facility] weight 2022-06-13 11:15:00 29.4 [lb_av] Com [facility] temperature 2022-06-13 11:15:00 97.4 [degF] Com [facility] bmi 2022-06-13 11:15:00 5.38 kg/m2 Commo n [facility] oximetry 2022-06-13 11:15:00 97 % Commo n [facility] respiratory rate 2022-06-13 11:15:00 16 /min [facility] blood pressure systolic 2022-06-13 11:15:00 135 mm[Hg] [facility] blood pressure diastolic 2022-06-13 11:15:00 62 mm[Hg] [facility] height 2021-12-13 10:00:00 62 [in_i] Commo n [facility] weight 2021-12-13 10:00:00 223 [lb_av] Comm on [facility] temperature 2021-12-13 10:00:00 97.8 [degF] Com [facility] bmi 2021-12-13 10:00:00 40.78 kg/m2 Comm on [facility] oximetry 2021-12-13 10:00:00 98 % Commo [facility] respiratory rate 2021-12-13 10:00:00 16 /min [facility] blood pressure systolic 2021-12-13 10:00:00 132 mm[Hg] [facility] blood pressure diastolic 2021-12-13 10:00:00 68 mm[Hg] [facility] height 2021-11-29 15:30:00 62 [in_i] Commo n [facility] weight 2021-11-29 15:30:00 223.8 [lb_av] Co mmon [facility] temperature 2021-11-29 15:30:00 97.2 [degF] Com mon [facility] bmi 2021-11-29 15:30:00 40.93 kg/m2 Comm on [facility] oximetry 2021-11-29 15:30:00 98 % Commo n [facility] respiratory rate 2021-11-29 15:30:00 16 /min [facility] blood pressure systolic 2021-11-29 15:30:00 189 mm[Hg] [facility] blood pressure diastolic 2021-11-29 15:30:00 73 mm[Hg] [facility] Procedures Procedure Date / Time Performed Performing Clinician Source MR LUMBAR SPINE WO CONTRAST 2021-10-03 17:33:38 Darrin Jett [facility] MR CERVICAL SPINE WO CONTRAST 2021-09-27 16:22:00 Darrin Jett [facility] NOTICE OF PRIVACY PRACTICES 2021-09-27 14:56:14 Doctor Unassigned, [place] [facility] CONSENT/REFUSAL FOR DIAGNOSIS AND TREATMENT 2021-09-27 14:55:59 Doctor Unassigned, [place] [facility] CONSENT/REFUSAL FOR DIAGNOSIS AND TREATMENT 2021-09-27 14:55:21 Doctor Unassigned, [place] [facility] ASSIGNMENT OF BENEFITS 2021-09-27 14:54:58 Docto r Unassigned, [place] [facility] AUTHORIZATION FOR RELEASE OF PHI 2020-03-07 05:01:00 Doctor Unassigned, [place] [facility] Encounters Start Date/Time End Date/Time Encounter Type Admission Type Attending Clinicians Care Facility Care Department Encounter ID Source 2022-02-18 14:14:03 Outpatient ERICH AMOS [facility] [id number] [facility] 2021-11-29 14:01:03 Outpatient ERICH AMOS STLMLC STLMLC [id number] [facility] 2023-04-01 00:00:00 2023-04-01 00:00:00 Outpatient GC_GCBZW_Ka diyala_S PRIV PRIV [id number] [facility] 2023-03-31 00:00:00 2023-03-31 00:00:00 Outpatient GC_GCBZW_Ka diyala_S PRIV PRIV [id number] [facility] 2022-08-20 00:00:00 2022-08-20 00:00:00 (TEL) STLMLC STLMLC [id number] [facility] 2022-06-27 00:00:00 2022-06-27 00:00:00 (TEL) STLMLC STLMLC [id number] [facility] 2022-06-13 00:00:00 2022-06-13 00:00:00 OFFICE VISIT EST PT LEVEL 3 STLMLC STLMLC [id number] [facility] 2022-03-08 00:00:00 2022-03-08 00:00:00 OL DIG E/M SVC 21+ MIN STLMLC STLMLC [id number] [facility] 2022-02-01 00:00:00 2022-02-01 00:00:00 (TEL) STLMLC STLMLC [id number] [facility] 2022 00:00:00 2022 00:00:00 OFFICE VISIT ESTAB PT LEVEL 1 STLMLC STLMLC [id number] [facility] 2021-12-13 00:00:00 2021-12-13 00:00:00 OFFICE VISIT ESTAB PT LEVEL 2 STLMLC STLMLC [id number] [facility] 2021-11-29 00:00:00 2021-11-29 00:00:00 OFFICE VISIT NEW PT LEVEL 4 STLMLC STLMLC [id number] [facility] 2021-10-03 11:18:32 2021-10-03 23:59:00 [facility] [id number] 2021-10-03 11:18:32 2021-10-03 23:59:00 Hospital Encounter Michelle [facility] [id number] [facility] 2021-09-27 09:30:00 2021-09-27 23:59:00 [facility] [id number] [facility] 2021-09-27 09:51:28 2021-09-27 09:29:00 Outpatient Connie JETT [facility] [id number] [facility] 2021-09-27 09:00:00 2021-09-27 09:29:00 [facility] [id number] [facility] 2020-03-07 00:00:00 2020-03-07 00:00:00 Orders Only Doctor Unassigned, [place] [facility] [id number] [facility] 2020-03-07 00:00:00 2020-03-07 00:00:00 Orders Only Doctor Unassigned, [place] [facility] [id number] 2020-02-10 00:00:00 2020-02-10 00:00:00 Transition of Care Zahida Girardpatience Boateng [id number] [facility] 2020-02-10 00:00:00 2020-02-10 00:00:00 Transition of Care Zahida Girardholli Boateng [id number] 2020-01-13 21:11:00 2020-01-13 21:11:00 Emergency X EMMA HA [facility] [id number] [facility]
[2023-08-20] MEDS ORDERED: TENECTEPLASE 50 MG/10 ML VIAL IV ONE (09:33)
--- NOTE | 2023-08-20 09:39 | RAD REPORT ---
EXAM DESCRIPTION: CT - Ct Stroke Brain Wo Cont - 08/20/2023 9:30 am CLINICAL HISTORY: code stroke COMPARISON: Head Brain Wo Cont dated 04/09/2022; Ct Stroke Brain Wo Cont dated 02/27/2022 TECHNIQUE: Noncontrast head CT images were obtained without IV contrast. Multiplanar reformats were generated and reviewed. All CT scans are performed using dose optimization technique as appropriate and may include automated exposure control or mA/KV adjustment according to patient size. FINDINGS: No intracranial hemorrhage, mass, or edema. Midline structures are unremarkable. Normal ventricular caliber for age. Pérez-white matter differentiation is preserved, without evidence of acute infarct. No abnormal extra- axial fluid collections. Mastoid air cells and visualized portions of the paranasal sinuses are clear. No acute bony findings. IMPRESSION: No evidence of an acute intracranial process. The findings were communicated to Dr. Fisher on 08/20/2023 at 09:36 hours.
--- NOTE | 2023-08-20 09:47 | RAD REPORT ---
EXAM DESCRIPTION: CT - Head angio - 08/20/2023 9:30 am CLINICAL HISTORY: code stroke COMPARISON: Ct Stroke Brain Wo Cont dated 08/20/2023; Head Brain Wo Cont dated 04/09/2022; Brain Wo Co nt dated 02/28/2022 TECHNIQUE: Axial CT angiography images of the head was performed with multiplanar and maximum intens ity projection reconstructions. Images performed following intravenous administration of 100mL Isovue 370. All CT scans are performed using dose optimization technique as appropriate and may include automated exposure control or mA/KV adjustment according to patient size. FINDINGS: No evidence of large vessel occlusion. No evidence of aneurysm or dissection flap is detec tiffany. No flow-limiting stenosis or vascular malformation identified. Antegrade flow is seen in the vertebral arteries. The right vertebral artery is diminutive and essent ially terminates as a common right AICA/ PICA trunk. . The visualized dural venous sinuses are grossly patent. IMPRESSION: No evidence of large vessel occlusion or flow-limiting stenosis.
[2023-08-20 09:51] LABS: Absolute Basophils 0.1 K/uL (0-0.5); Absolute Eosinophils 0.2 K/uL (0-0.5); Absolute Lymphocytes (CBC) 0.6 K/uL (0.7-4.9); Absolute Monocytes 0.5 K/uL (0.1-1.3); Absolute Neutrophil 4.2 K/uL (1.8-8.0); Basophils % 0.9 % (0-1.3); Eosinophils % 3.3 % (0-4.4); Hematocrit 30.3 % (36.0-45.0); Lymphocytes % 11.2 % (15.3-44.8); MCH 30.2 pg (27.0-35.0); MCHC 33.1 g/dL (32.0-36.0); MCV 91.2 fL (80-100); MPV 8.4 fL (7.6-11.3); Monocytes % 9.3 % (3.3-12.3); Neutrophils % 75.3 % (41.7-73.7); Nucleated Red Blood Cells % 0.1 % (0-0); Platelets 145 thou/uL (152-406); RBC Red Blood Cell Count 3.32 M/uL (3.86-4.86); Red Cell Distribution Width 16.2 % (12.1-15.2)
--- NOTE | 2023-08-20 09:51 | RAD REPORT ---
EXAM DESCRIPTION: CT - Neck Angio - 08/20/2023 9:30 am CLINICAL HISTORY: code stroke Slurred speech. Difficulty moving after dialysis COMPARISON: Head C Spine Mpr Wo Con dated 07/10/2020; Head angio dated 08/20/2023 TECHNIQUE: Axial CT angiography images of the neck was performed with multiplanar and maximum intens ity projection reconstructions. Images performed following intravenous administration of 100mL Isovue 370. All CT scans are performed using dose optimization technique as appropriate and may include automated exposure control or mA/KV adjustment according to patient size. Quantification of carotid stenosis, if any, is performed according to NASCET criteria. FINDINGS: A left aortic arch is identified with normal three vessel configuration of the great vesse ls. No significant flow abnormality is seen of the common carotid bilaterally. No significant stenosis is identified involving the cervical segments of both internal carotid arteri es. Mild atherosclerotic calcifications at the carotid bulbs. Normal flow is seen within both vertebral arteries. Central predominant ground-glass opacities in the included upper lungs. IMPRESSION: No significant flow abnormality of the neck vessels is identified. Central predominant ground-glass opacities in the upper lungs, may reflect central pulmonary edema or congestion. CAROTID STENOSIS REFERENCE USING NASCET CRITERIA: % ICA stenosis = (1 - narrowest ICA diameter/diameter of distal cervical ICA) x 100. Mild - <50% stenosis. Moderate - 50-69% stenosis. Severe - 70-94% stenosis. Near occlusion - 95-99% stenosis. Occluded - 100% stenosis.
[2023-08-20 09:59] LABS: PT Prothrombin Time 12.1 SECONDS (9.5-12.5); PTT, Activated Partial Thromb 34.5 SECONDS (24.3-36.9); Protime INR 1.1
[2023-08-20 10:09] LABS: Troponin High Sensitivity 117.5 pg/mL (<58.9)
--- NOTE | 2023-08-20 10:32 | EDPHYS ---
Physician Documentation [facility] Name: Abby Meredith Age: 68 yrs Sex: Female : 1955 Arrival Date: 08/20/2023 Time: 09:11 Bed 2 Private MD: ED Physician Rakesh Bueno HPI: 08/19 09:41 This 68 yrs old Female presents to ER via EMS with complaints of stroke like ec2 symptoms. 09:41 Patient arrives today for evaluation of possible strokelike symptoms, last known well ec2 approximately 0805. Patient with slurred speech. Patient dialysis patient, will had taken approximate 1.5 L noted to be with slurred speech. Previous history of stroke, residual left-sided deficits. No blood thinners, no recent head trauma, no brain bleeds.. Historical: - Allergies: 09:17 PENICILLINS; rs5 - PMHx: 09:17 CHF; Diabetes - IDDM; Hyperlipidemia; Dialysis; M-W-F; Hypertension; rs5 - Immunization history:: Adult Immunizations up to date. - Social history:: Smoking status: Patient denies any tobacco usage or history of. ROS: 09:41 Constitutional: as per hpi ec2 Exam: 09:41 Constitutional: GEN: NAD Head: atraumatic Eyes: EOMI Ears: External ears are ec2 normal. CV: regular rate LUNGS: no respiratory distress ABD: non-distended SKIN: no evidence of rashes MSK: no evidence of trauma NEURO: Left upper lower extremity weakness (baseline per patient), slurred speech noted, NIH 1. Vital Signs: 09:17 BP 161 / 54; Pulse 80; Resp 18; Pulse Ox 99% on R/A; rs5 09:40 BP 159 / 69; Pulse 71; Resp 18; Pulse Ox 99% on R/A; rs5 10:00 Temp 98; rs5 11:29 BP 152 / 63; Pulse 74; Resp 17; Pulse Ox 98% on R/A; rs5 12:10 BP 155 / 60; Pulse 77; Resp 18; Pulse Ox 99% on R/A; rs5 NIH Stroke Scale Scores: 09:17 NIHSS Score: 2 rs5 10:02 NIHSS Score: 2 rs5 10:50 NIHSS Score: 0 rs5 11:59 NIHSS Score: 0 rs5 MDM: 09:40 Patient medically screened. ec2 09:41 Data reviewed: vital signs. ED course: Patient arrives today for evaluation of slurred ec2 speech. Examination remarkable for slurred speech as noted above otherwise baseline focal deficits as per patient. I discussed the case with radiology, CT scan of the head shows no acute intracranial brain bleed. I shared decision-making with the patient regarding TNK administration, patient does not want to proceed with TNK, is making phone calls to multiple family numbers that is delaying a final decision however as of 941 after discussion with patient and other family member the decision was noted.. 09:56 ED course: EKG independently reviewed and interpreted by me, shows normal sinus rhythm, ec2 rate of 77, no acute ST segment ovation's, intervals are nonconcerning, left bundle branch block noted.. 10:29 ED course: Profile shows expected renal dysfunction, CBC is reassuring with slight ec2 anemia noted, troponin elevated at 117, glucose within normal ranges. CT scan of the head, CT angio head and neck showed no acute process. Will admit for stroke workup and slurred speech. . 10:30 ED course: On reassessment patient with improvement in symptoms. Will admit for stroke ec2 workup. Discussed case with hospitalist, pending admission.. 08/19 09:38 Order name: Basic Metabolic Panel; Complete Time: 10:29 bp 08/19 09:38 Order name: CBC with Diff; Complete Time: 10:29 bp 08/19 09:38 Order name: High Sensitivity Troponin; Complete Time: 10:29 bp 08/19 09:38 Order name: Protime (+inr); Complete Time: 10:29 bp 08/19 09:38 Order name: Ptt, Activated; Complete Time: 10:29 bp 08/19 10:05 Order name: Glucose, Ancillary Testing; Complete Time: 10:29 EDMS 08/19 11:25 Order name: Urinalysis w/ reflexes EDMS 08/19 11:25 Order name: Basic Metabolic Panel EDMS 08/19 11:25 Order name: Basic Metabolic Panel EDMS 08/19 11:25 Order name: Basic Metabolic Panel EDMS 08/19 11:25 Order name: Basic Metabolic Panel EDMS 08/19 11:25 Order name: Basic Metabolic Panel EDMS 08/19 11:25 Order name: CBC with Automated Diff EDMS 08/19 11:25 Order name: CBC with Automated Diff EDMS 08/19 11:25 Order name: CBC with Automated Diff EDMS 08/19 11:25 Order name: CBC with Automated Diff EDMS 08/19 11:25 Order name: CBC with Automated Diff EDMS 08/19 11:25 Order name: Magnesium EDMS 08/19 11:25 Order name: Magnesium EDMS 08/19 11:25 Order name: Magnesium EDMS 08/19 11:25 Order name: Magnesium EDMS 08/19 11:25 Order name: Magnesium EDMS 08/19 11:34 Order name: Troponin High Sensitivity EDMS 08/19 11:34 Order name: Troponin High Sensitivity EDMS 08/19 12:17 Order name: Glucose, Ancillary Testing EDMS 08/19 09:21 Order name: Head angio EDMS 08/19 09:21 Order name: Neck Angio EDMS 08/19 09:29 Order name: Ct Stroke Brain Wo Cont EDMS 08/19 09:38 Order name: Stroke CXR 1 View; Complete Time: 11:12 bp 08/19 09:38 Order name: EKG; Complete Time: 09:38 bp 08/19 11:22 Order name: CONS Physician Consult EDMS 08/19 11:26 Order name: Speech Therapy Consult EDMS 08/19 09:38 Order name: Accucheck; Complete Time: 10:41 bp 08/19 09:38 Order name: Cardiac monitoring; Complete Time: 10:41 bp 08/19 09:38 Order name: EKG - Nurse/Tech; Complete Time: 10:41 bp 08/19 09:38 Order name: IV Saline Lock; Complete Time: 09:41 bp 08/19 09:38 Order name: Labs collected and sent; Complete Time: 09:41 bp 08/19 09:38 Order name: NPO; Complete Time: 09:41 bp 08/19 09:38 Order name: O2 Per Protocol; Complete Time: 09:41 bp 08/19 09:38 Order name: O2 Sat Monitoring; Complete Time: 09:41 bp 08/19 09:38 Order name: Stroke Swallow Screen; Complete Time: 10:41 bp Administered Medications: 10:40 Drug: Acetaminophen PO 1000 mg PO once Route: PO; rs5 11:30 Follow up: Response: No adverse reaction; Pain is decreased rs5 Disposition Summary: 08/20/23 10:31 Hospitalization Ordered Notes: Hospitalization Status: Inpatient Admission ec2 Provider: Tera Monson ec2 Location: Telemetry/MedSurg (observation) ec2 Condition: Stable ec2 Problem: new ec2 Symptoms: have improved ec2 Bed/Room Type: Standard ec2 Room Assignment: 412(08/20/23 11:38) bd Diagnosis - Slurred speech ec2 Forms: - Medication Reconciliation Form ec2 - SBAR form ec2 - Leadership Thank You Letter ec2 NIH Stroke Scale - NIH Stroke Score Date: 08/20/2023 Time: 09:17 Total Score = 2 10. Dysarthria (speech clarity - read or repeat words) - 1(Mild to Moderate) 11. Extinction and Inattention (visual/tactile/auditory/spatial/personal) - 0(No abnormality) 1a. Level of Consciousness (LOC) - 0(Alert) 1b. Level of Consciousness (LOC) (Month \T\ Age) - 0(Both) 1c. LOC Commands (Open \T\ Closes Eyes/Senior Director Insight) - 0(Both) 2. Best Gaze (Lateral Gaze Paresis) - 0(Normal) 3. Visual Field Loss - 0(No visual loss) 4. Facial Palsy - 0(Normal) 5a. Left Arm: Motor (10-second hold) - 0(No drift) 5b. Right Arm: Motor (10-second hold) - 0(No drift) 6a. Left Leg: Motor (5-second hold - always test supine) - 0(No drift) 6b. Right Leg: Motor (5-second hold - always test supine) - 0(No drift) 7. Limb Ataxia (finger/nose \T\ heel/sylvester - test with eyes open) - 0(Absent) 8. Sensory Loss (pinprick arms/legs/face) - 0(Normal) 9. Best Language: Aphasia (description/naming/reading) - 1(Mild to moderate aphasia) Initials: rs5 NIH Stroke Scale - NIH Stroke Score Date: 08/20/2023 Time: 10:02 Total Score = 2 10. Dysarthria (speech clarity - read or repeat words) - 1(Mild to Moderate) 11. Extinction and Inattention (visual/tactile/auditory/spatial/personal) - 0(No abnormality) 1a. Level of Consciousness (LOC) - 0(Alert) 1b. Level of Consciousness (LOC) (Month \T\ Age) - 0(Both) 1c. LOC Commands (Open \T\ Closes Eyes/Senior Director Insight) - 0(Both) 2. Best Gaze (Lateral Gaze Paresis) - 0(Normal) 3. Visual Field Loss - 0(No visual loss) 4. Facial Palsy - 1(Minor Paralysis) 5a. Left Arm: Motor (10-second hold) - 0(No drift) 5b. Right Arm: Motor (10-second hold) - 0(No drift) 6a. Left Leg: Motor (5-second hold - always test supine) - 0(No drift) 6b. Right Leg: Motor (5-second hold - always test supine) - 0(No drift) 7. Limb Ataxia (finger/nose \T\ heel/sylvester - test with eyes open) - 0(Absent) 8. Sensory Loss (pinprick arms/legs/face) - 0(Normal) 9. Best Language: Aphasia (description/naming/reading) - 0(No aphasia) Initials: rs5 NIH Stroke Scale - NIH Stroke Score Date: 08/20/2023 Time: 10:50 Total Score = 0 10. Dysarthria (speech clarity - read or repeat words) - 0(Normal) 11. Extinction and Inattention (visual/tactile/auditory/spatial/personal) - 0(No abnormality) 1a. Level of Consciousness (LOC) - 0(Alert) 1b. Level of Consciousness (LOC) (Month \T\ Age) - 0(Both) 1c. LOC Commands (Open \T\ Closes Eyes/Senior Director Insight) - 0(Both) 2. Best Gaze (Lateral Gaze Paresis) - 0(Normal) 3. Visual Field Loss - 0(No visual loss) 4. Facial Palsy - 0(Normal) 5a. Left Arm: Motor (10-second hold) - 0(No drift) 5b. Right Arm: Motor (10-second hold) - 0(No drift) 6a. Left Leg: Motor (5-second hold - always test supine) - 0(No drift) 6b. Right Leg: Motor (5-second hold - always test supine) - 0(No drift) 7. Limb Ataxia (finger/nose \T\ heel/sylvester - test with eyes open) - 0(Absent) 8. Sensory Loss (pinprick arms/legs/face) - 0(Normal) 9. Best Language: Aphasia (description/naming/reading) - 0(No aphasia) Initials: rs5 NIH Stroke Scale - NIH Stroke Score Date: 08/20/2023 Time: 11:59 Total Score = 0 10. Dysarthria (speech clarity - read or repeat words) - 0(Normal) 11. Extinction and Inattention (visual/tactile/auditory/spatial/personal) - 0(No abnormality) 1a. Level of Consciousness (LOC) - 0(Alert) 1b. Level of Consciousness (LOC) (Month \T\ Age) - 0(Both) 1c. LOC Commands (Open \T\ Closes Eyes/Senior Director Insight) - 0(Both) 2. Best Gaze (Lateral Gaze Paresis) - 0(Normal) 3. Visual Field Loss - 0(No visual loss) 4. Facial Palsy - 0(Normal) 5a. Left Arm: Motor (10-second hold) - 0(No drift) 5b. Right Arm: Motor (10-second hold) - 0(No drift) 6a. Left Leg: Motor (5-second hold - always test supine) - 0(No drift) 6b. Right Leg: Motor (5-second hold - always test supine) - 0(No drift) 7. Limb Ataxia (finger/nose \T\ heel/sylvester - test with eyes open) - 0(Absent) 8. Sensory Loss (pinprick arms/legs/face) - 0(Normal) 9. Best Language: Aphasia (description/naming/reading) - 0(No aphasia) Initials: rs5 Signatures: Dispatcher [employer] Sujatha Coleman Brian, RN RN Petar Bolden RN RN [facility] Rakesh Bueno MD MD ec2 Corrections: (The following items were deleted from the chart) 11:38 10:31 ec2 aiden
--- NOTE | 2023-08-20 10:32 | ER ---
Nurse's Notes [facility] Name: Abby Meredith Age: 68 yrs Sex: Female : 1955 Arrival Date: 08/20/2023 Time: 09:11 Bed 2 Private MD: Diagnosis: Slurred speech Presentation: 08/19 09:17 Chief complaint: EMS states: "Pt was having dialysis began having difficulty speaking rs5 and moving all extremities. Pt reports having nausea and the worst headache of her life. Onset of symptoms 08, pt has a history of strokes". 09:17 Coronavirus screen: At this time, the client does not indicate any symptoms associated rs5 with coronavirus-19. Ebola Screen: No symptoms or risks identified at this time. Risk Assessment: Do you want to hurt yourself or someone else? Patient reports no desire to harm self or others. Onset of symptoms was August 20, 2023 at 08:07. Care prior to arrival: Medication(s) given: zofran 4 mg, fentanyl 50 mcg IV initiated. 20 GA, in the right antecubital area. 09:17 Method Of Arrival: EMS: [facility] rs5 09:17 Acuity: TOMASA 2 rs5 09:17 Initial Sepsis Screen: Does the patient meet any 2 criteria? No. Patient's initial rs5 sepsis screen is negative. Does the patient have a suspected source of infection? No. Patient's initial sepsis screen is negative. Triage Assessment: 09:17 General: Appears in no apparent distress. uncomfortable, Behavior is calm, cooperative. rs5 Pain: Complains of pain in head Pain currently is 7 out of 10 on a pain scale. Quality of pain is described as aching, Pain began 1 hour ago. Historical: - Allergies: :17 PENICILLINS; rs5 - PMHx: :17 CHF; Diabetes - IDDM; Hyperlipidemia; Dialysis; M-W-F; Hypertension; rs5 - Immunization history:: Adult Immunizations up to date. - Social history:: Smoking status: Patient denies any tobacco usage or history of. Screenin:17 [facility] ED Fall Risk Assessment (Adult) History of falling in the last 3 months, rs5 including since admission No falls in past 3 months (0 pts) Confusion or Disorientation No (0 pts) Intoxicated or Sedated No (0 pts) Impaired Gait Yes (1 pt) Mobility Assist Device Used Yes (1 pt) Altered Elimination No (0 pt) Score/Fall Risk Level 0 - 2 = Low Risk Oriented to surroundings, Maintained a safe environment. Abuse screen: Denies threats or abuse. Nutritional screening: No deficits noted. Tuberculosis screening: No symptoms or risk factors identified. 09:45 Pettibone Swallow Protocol Exclusion Criteria: Exclusion Criteria Result: Proceed Brief rs5 Cognitive Screen What is your name? Normal, Where are you right now? Normal, What year is it? Normal. Oral Mechanism Examination Facial Symmetry: Normal, Motion: Normal, Lip Closure: Normal, Oral Mechanism Result: Normal. 3 oz Water Swallow Challenge: Pt able to drink all water without stopping, coughing, choking or throat clearing: Yes Result: PASS. Assessment: 09:17 Reassessment: Stroke alarm activated. Pt taken to CT by bed. rs5 09:17 General: Appears uncomfortable, Behavior is cooperative. Pain: Complains of pain in rs5 head Pain currently is 8 out of 10 on a pain scale. Quality of pain is described as aching, Is continuous. Neuro: Level of Consciousness is awake, alert, obeys commands, Oriented to person, place, time, situation, Optical Fabricator are weak on left Moves all extremities. Weakness in left arm(s) Speech with expressive aphasia noted, Facial symmetry appears normal, Pupils are PERRLA, Pupil Size: 3 mm Intact. 09:17 Cardiovascular: Rhythm is regular. Respiratory: Respiratory effort is even, unlabored, rs5 Respiratory pattern is regular, symmetrical. GI: Abdomen is round non-distended, Abd is soft and non tender X 4 quads. : No signs and/or symptoms were reported regarding the genitourinary system. EENT: No signs and/or symptoms were reported regarding the EENT system. Derm: Skin is intact, Skin is dry, Skin is normal, Skin temperature is warm. Musculoskeletal: Circulation, motion, and sensation intact. Reports "I've had a history of strokes that have left me slightly weak on my left arm and left leg". 09:27 Reassessment: Pt back from CT, provider at bedside pt states "I don't want TNK". rs5 Provider on the phone with son. 09:40 General: Appears in no apparent distress. Behavior is cooperative. Pain: Complains of rs5 pain in head Pain currently is 7 out of 10 on a pain scale. Quality of pain is described as aching, Is continuous. Neuro: Level of Consciousness is awake, alert, obeys commands, Oriented to person, place, time, situation, Optical Fabricator are weak on left Moves all extremities. Facial symmetry appears normal, Pupils are PERRLA, Intact. Cardiovascular: Rhythm is regular. 09:40 Reassessment: Provider notified pt is experiencing pain. rs5 10:10 Reassessment: lab called to report critical troponin level 117.5, provider notified . rs5 10:30 Reassessment: Patient and/or family updated on plan of care and expected duration. Pain rs5 level reassessed. Patient is alert, oriented x 3, equal unlabored respirations, skin warm/dry/pink. Provider notified pt is experiencing pain . 11:28 Reassessment: No changes from previously documented assessment. rs5 11:55 Reassessment: Issa ticket completed and faxed to fourth floor with EKG and SBAR. rs5 12:06 Reassessment: Pt states "I usually eat around this time, I am a diabetic and I wonder rs5 if my blood sugars are low" to bedside for blood sugar check, blood sugar results 151. 12:20 Reassessment: Patient and/or family updated on plan of care and expected duration. Pain rs5 level reassessed. Patient is alert, oriented x 3, equal unlabored respirations, skin warm/dry/pink. Vital Signs: 09:17 BP 161 / 54; Pulse 80; Resp 18; Pulse Ox 99% on R/A; rs5 09:40 BP 159 / 69; Pulse 71; Resp 18; Pulse Ox 99% on R/A; rs5 10:00 Temp 98; rs5 11:29 BP 152 / 63; Pulse 74; Resp 17; Pulse Ox 98% on R/A; rs5 12:10 BP 155 / 60; Pulse 77; Resp 18; Pulse Ox 99% on R/A; rs5 NIH Stroke Scale Scores: 09:17 NIHSS Score: 2 rs5 10:02 NIHSS Score: 2 rs5 10:50 NIHSS Score: 0 rs5 11:59 NIHSS Score: 0 rs5 ED Course: 09:16 Patient arrived in ED. bd 09:17 Rakesh Bueno MD is Attending Physician. ec2 09:17 Patient has correct armband on for positive identification. Placed in gown. Bed in low rs5 position. Call light in reach. Side rails up X2. 09:31 Petar Bolden, RN is Primary Nurse. rs5 09:32 Head angio In Process Unspecified. EDMS 09:32 Neck Angio In Process Unspecified. EDMS 09:32 Ct Stroke Brain Wo Cont In Process Unspecified. EDMS 09:34 Triage completed. rs5 10:06 No provider procedures requiring assistance completed. rs5 10:25 Stroke CXR 1 View In Process Unspecified. EDMS 10:31 Tera Monson MD is Hospitalizing Provider. ec2 12:20 Patient admitted, IV remains in place. rs5 Administered Medications: 10:40 Drug: Acetaminophen PO 1000 mg PO once Route: PO; rs5 11:30 Follow up: Response: No adverse reaction; Pain is decreased rs5 Medication: 09:41 VIS not applicable for this client. rs5 Outcome: 10:31 Decision to Hospitalize by Provider. ec2 12:20 Admitted to Med/surg accompanied by mellissa, with chart, rs5 12:20 Condition: stable rs5 12:20 Instructed on the need for admit, Demonstrated understanding of instructions, 12:22 Patient left the ED. rs5 NIH Stroke Scale - NIH Stroke Score Date: 08/20/2023 Time: 09:17 Total Score = 2 10. Dysarthria (speech clarity - read or repeat words) - 1(Mild to Moderate) 11. Extinction and Inattention (visual/tactile/auditory/spatial/personal) - 0(No abnormality) 1a. Level of Consciousness (LOC) - 0(Alert) 1b. Level of Consciousness (LOC) (Month \\T\\ Age) - 0(Both) 1c. LOC Commands (Open \\T\\ Closes Eyes/Derrick Boat Lever Operator) - 0(Both) 2. Best Gaze (Lateral Gaze Paresis) - 0(Normal) 3. Visual Field Loss - 0(No visual loss) 4. Facial Palsy - 0(Normal) 5a. Left Arm: Motor (10-second hold) - 0(No drift) 5b. Right Arm: Motor (10-second hold) - 0(No drift) 6a. Left Leg: Motor (5-second hold - always test supine) - 0(No drift) 6b. Right Leg: Motor (5-second hold - always test supine) - 0(No drift) 7. Limb Ataxia (finger/nose \\T\\ heel/sylvester - test with eyes open) - 0(Absent) 8. Sensory Loss (pinprick arms/legs/face) - 0(Normal) 9. Best Language: Aphasia (description/naming/reading) - 1(Mild to moderate aphasia) Initials: rs5 NIH Stroke Scale - NIH Stroke Score Date: 08/20/2023 Time: 10:02 Total Score = 2 10. Dysarthria (speech clarity - read or repeat words) - 1(Mild to Moderate) 11. Extinction and Inattention (visual/tactile/auditory/spatial/personal) - 0(No abnormality) 1a. Level of Consciousness (LOC) - 0(Alert) 1b. Level of Consciousness (LOC) (Month \\T\\ Age) - 0(Both) 1c. LOC Commands (Open \\T\\ Closes Eyes/Derrick Boat Lever Operator) - 0(Both) 2. Best Gaze (Lateral Gaze Paresis) - 0(Normal) 3. Visual Field Loss - 0(No visual loss) 4. Facial Palsy - 1(Minor Paralysis) 5a. Left Arm: Motor (10-second hold) - 0(No drift) 5b. Right Arm: Motor (10-second hold) - 0(No drift) 6a. Left Leg: Motor (5-second hold - always test supine) - 0(No drift) 6b. Right Leg: Motor (5-second hold - always test supine) - 0(No drift) 7. Limb Ataxia (finger/nose \\T\\ heel/sylvester - test with eyes open) - 0(Absent) 8. Sensory Loss (pinprick arms/legs/face) - 0(Normal) 9. Best Language: Aphasia (description/naming/reading) - 0(No aphasia) Initials: rs5 NIH Stroke Scale - NIH Stroke Score Date: 08/20/2023 Time: 10:50 Total Score = 0 10. Dysarthria (speech clarity - read or repeat words) - 0(Normal) 11. Extinction and Inattention (visual/tactile/auditory/spatial/personal) - 0(No abnormality) 1a. Level of Consciousness (LOC) - 0(Alert) 1b. Level of Consciousness (LOC) (Month \\T\\ Age) - 0(Both) 1c. LOC Commands (Open \\T\\ Closes Eyes/Derrick Boat Lever Operator) - 0(Both) 2. Best Gaze (Lateral Gaze Paresis) - 0(Normal) 3. Visual Field Loss - 0(No visual loss) 4. Facial Palsy - 0(Normal) 5a. Left Arm: Motor (10-second hold) - 0(No drift) 5b. Right Arm: Motor (10-second hold) - 0(No drift) 6a. Left Leg: Motor (5-second hold - always test supine) - 0(No drift) 6b. Right Leg: Motor (5-second hold - always test supine) - 0(No drift) 7. Limb Ataxia (finger/nose \\T\\ heel/sylvester - test with eyes open) - 0(Absent) 8. Sensory Loss (pinprick arms/legs/face) - 0(Normal) 9. Best Language: Aphasia (description/naming/reading) - 0(No aphasia) Initials: rs5 NIH Stroke Scale - NIH Stroke Score Date: 08/20/2023 Time: 11:59 Total Score = 0 10. Dysarthria (speech clarity - read or repeat words) - 0(Normal) 11. Extinction and Inattention (visual/tactile/auditory/spatial/personal) - 0(No abnormality) 1a. Level of Consciousness (LOC) - 0(Alert) 1b. Level of Consciousness (LOC) (Month \\T\\ Age) - 0(Both) 1c. LOC Commands (Open \\T\\ Closes Eyes/Derrick Boat Lever Operator) - 0(Both) 2. Best Gaze (Lateral Gaze Paresis) - 0(Normal) 3. Visual Field Loss - 0(No visual loss) 4. Facial Palsy - 0(Normal) 5a. Left Arm: Motor (10-second hold) - 0(No drift) 5b. Right Arm: Motor (10-second hold) - 0(No drift) 6a. Left Leg: Motor (5-second hold - always test supine) - 0(No drift) 6b. Right Leg: Motor (5-second hold - always test supine) - 0(No drift) 7. Limb Ataxia (finger/nose \\T\\ heel/sylvester - test with eyes open) - 0(Absent) 8. Sensory Loss (pinprick arms/legs/face) - 0(Normal) 9. Best Language: Aphasia (description/naming/reading) - 0(No aphasia) Initials: rs5 Signatures: Dispatcher [employer] Sujatha Coleman Ricky, RN RN rs5 Rakesh Bueno MD MD ec2 Corrections: (The following items were deleted from the chart) : 09:40 Reassessment: Provider notified pt is experiencing pain. rs5 rs5 12:28 12:28 Patient left the ED. rs5 rs5
--- NOTE | 2023-08-20 11:04 | RAD REPORT ---
EXAM DESCRIPTION: RADChest Single View08/20/2023 10:23 am CLINICAL HISTORY: CODE STROKE COMPARISON: Chest Single View dated 04/09/2022; Chest Single View dated 02/27/2022; Chest Pa And Lat ( 2 Views) dated 12/27/2021; Chest Single View dated 05/09/2020Chest Single View dated 04/09/2022; Chest S rayna View dated 02/27/2022; Chest Pa And Lat (2 Views) dated 12/27/2021; Chest Single View dated 2019 TECHNIQUE: Portable AP view of the chest. FINDINGS: The lungs are clear apart from stable bibasilar atelectatic changes. Elevation of the righ t hemidiaphragm again seen. No pneumothorax or effusion. The cardiomediastinal contours are unremark able. IMPRESSION: No acute cardiopulmonary process.
--- NOTE | 2023-08-20 11:18 | P.HP ---
Certification for Inpatient Patient History Date of Service: 08/20/23 Reason for admission: slurred speech History of Present Illness: 67-year-old female with history of ESRD on HD MWF, chronic diastolic congestive heart failure, diabetes mellitus type [id number], hypertension, hyperlipidemia presents the emergency department for slurred speech. Presents for evaluation for strokelike symptoms, NIH stroke scale 1 with mild dysarthria, 1 for moderate aphasia, patient has a history on dialysis Friday, no reported falls, use of blood thinners. No reported chest pain, shortness of breath. Plan to admit for slurred speech rule out CVA, end-stage renal disease on hemodialysis, consult neurology, speech evaluation. Microcytic anemia 10.9, 30.3, WBCs are normal left shift 75.3 elevated troponin at 117.5, trend troponin - Past Medical/Surgical History Diabetic: Yes -: HTN -: DM II with CKD & Polyneuropathy -: Metabolic Syndrome. Obesity. -: Dyslipidemia. -: Diastolic CHF -: ESRD (Dr. Retana) MWF -: PAD -: CVD -: Umbilical hernia repair x 2 -: Appendectomy -: Cystoscopy with Bladder Biopsy -: Hysteroscopy with D&C -: AVF Psychosocial/ Personal History: Patient lives at home with her daughter. - Family History Mother -: Diabetes, Kidney disease Father -: Other (see notes) Notes: Brain aneurysm - Social History Alcohol use: No CD- Drugs: No Caffeine use: Yes <Hali Godoy - Last Filed: 08/20/23 14:10> Date of Service: 08/20/23 <eTra Monson - Last Filed: 08/20/23 14:11> Allergies Penicillins Allergy (Severe, Verified 04/09/22 21:55) Anaphylaxis amoxicillin Adverse Reaction (Severe, Verified 04/09/22 21:55) Anaphylaxis levofloxacin Adverse Reaction (Intermediate, Verified 04/09/22 21:55) Headaches Home Medications: Aspirin [Aspirin EC] 81 mg PO DAILY 04/10/22 Atorvastatin Calcium [Lipitor*] 10 mg PO BEDTIME 04/10/22 Benzonatate [Tessalon Perle] 100 mg PO TID PRN #20 cap 04/10/22 Calcium Carbonate [Tums Regular*] 1,000 mg PO TIDWM 04/10/22 Carvedilol [Coreg] 3.125 mg PO BID 04/10/22 Cholecalciferol (Vitamin D3) [Vitamin D3] 1,000 unit PO DAILY 04/10/22 Clopidogrel Bisulfate [Plavix*] 75 mg PO DAILY 04/10/22 Docusate [Colace Cap*] 100 mg PO DAILY 04/10/22 Gabapentin 100 mg PO BEDTIME 04/10/22 Lactulose [Cephulac*] 20 g PO TIDP PRN 04/10/22 Losartan Potassium 12.5 mg PO BEDTIME 04/10/22 Ondansetron [Zofran (Odt)*] 4 mg PO DAILY 04/10/22 Oseltamivir Phosphate [Tamiflu] 30 mg PO EVERY HD #1 cap 04/10/22 Vit B Comp C/Folic Acid/Vit D3 [Dialyvite 800 Plus D Wafer] 1 tab PO DAILY 04/10/22 Review of Systems Per HPI <Hali Godoy - Last Filed: 08/20/23 14:10> Physical Examination - Physical Exam General: Alert, In no apparent distress, Oriented x3 HEENT: Atraumatic, Normocephalic Neck: Supple, 2+ carotid pulse no bruit Respiratory: Clear to auscultation bilaterally, Normal air movement Cardiovascular: Normal pulses, Regular rate/rhythm Gastrointestinal: Normal bowel sounds, Soft and benign Musculoskeletal: No clubbing, No swelling Integumentary: No rashes, No breakdown Neurological: Normal strength at 5/5 x4 extr, Abnormal speech - Studies Laboratory Data (last 24 hrs) 08/20/23 08/20/23 08/20/23 09:40 09:40 09:40 WBC 5.50 Hgb 10.0 L Hct 30.3 L Plt Count 145 L PT 12.1 INR 1.10 APTT 34.5 Sodium 134 L Potassium 4.0 BUN 30 H Creatinine 4.35 H Glucose 232 H <Hali Godoy - Last Filed: 08/20/23 14:10> - Studies Laboratory Data (last 24 hrs) 08/20/23 08/20/23 08/20/23 09:40 09:40 09:40 WBC 5.50 Hgb 10.0 L Hct 30.3 L Plt Count 145 L PT 12.1 INR 1.10 APTT 34.5 Sodium 134 L Potassium 4.0 BUN 30 H Creatinine 4.35 H Glucose 232 H <Tera Monson Tino - Last Filed: 08/20/23 14:11> Assessment and Plan - Plan Assessment plan Slurred speech, rule out CVA Headache Speech eval, MRI brain ordered Neurology eval Bedside swallow study prior to p.o. intake End-stage renal disease on hemodialysis Nephrology consulted Hemodialysis Friday nephrology consulted for dialysis, complete 50% of treatment friday, appears mildly overloaded. Elevated troponin likely secondary from fluid volume overload from end-stage renal disease Trend troponin Cardiology, DMII-non insulin dependent with hypoglycemia: Accu-Cheks, SSI Acute on chronic diastolic congestive heart failure: Volume mgmt with dialysis, continue home meds. HTN:continue home meds HLD:continue home meds DVT PPX: Heparin Code status:Full Discharge Plan: Home Discharge Plan: Home - Advance Directives Does patient have a Living Will: No Does patient have a Durable POA for Healthcare: Yes - Code Status/Comfort Care Code Status: Full Code Critical Care: No Time Spent Managing Pts Care (In Minutes): 55 <Hali Godoy - Last Filed: 08/20/23 14:10> - Plan Pt seen and examined. I agree with the note by the MARKET SPECIALIST. Pt is a 68 yo female with past medical history of ESRD on HD MWF, chronic diastolic congestive heart failure, diabetes mellitus type [id number], hypertension, and hyperlipidemia who presents with slurred speech while she was doing dialysis. Pt reports that she felt a sharp pain inher head when her BP droppped and she developed slurred speech. Pt was sent to the ER for evaluation. Lab studie sshow wbc 5.5. Hgb 10, hgb 30.3, glucose 145 and Cr 4.35 and troponin 117.5. At bedside, pt has left sided weakness > right sided weakness. A/P: CVA symptoms: Her speech is better. Likely due to drastic drop in BP. Will continue permissive htn. CT head is unremarkable. Will f/u MRI brain and Echo. Continue aspirin, statin and check A1c, lipidpanel, and TSH. ESRD: Will continue HD per schedule MWF Elevated troponin: Due to ESRD. Will trend troponin Q6h. troponin is 117.5 HLD: statin Htn: Continue permissive htn Hx of chronic diastolic heart failure: Continue strict I/O and daily weight. Obesity: Pt was advised to lose weight. Code: full <Tera Monson - Last Filed: 08/20/23 14:11>
[2023-08-20] MEDS ORDERED: ACETAMINOPHEN 500 MG TAB ONE (11:19)
[2023-08-20] MEDS: INSULIN REGULAR (HUMAN) 100 UNIT/ML SQ SCH (11:30)
[2023-08-20 14:33] VITALS: BMI 38.2
--- NOTE | 2023-08-20 17:18 | RAD REPORT ---
EXAM DESCRIPTION: MRI - Brain Wo Cont - 08/20/2023 4:57 pm CLINICAL HISTORY: Slurred speech COMPARISON: Head CT August 20, 2023 TECHNIQUE: Axial, sagittal, and coronal magnetic resonance images of the brain were obtained. FINDINGS: Mild signal within periventricular, deep and subcortical white matter probably ischemic ch anges secondary to small vessel disease Diffusion-weighted/ADC mapping does not reveal evidence of acute infarction. The ventricles are normal caliber. An extra-axial fluid collection is not noted. Mucus retention cyst left maxillary sinus. Mild signal within the mastoids IMPRESSION: No acute intracranial abnormality noted
[2023-08-20] MEDS: HEPARIN 5000 UNIT/ML 1 ML VIAL SQ SCH (17:32)
[2023-08-20] MEDS: ACETAMINOPHEN 500 MG TAB PO PRN (17:33)
[2023-08-20] MEDS: ACETAMIN/CAFFEINE/BUTALB TAB PO PRN (21:10)
--- NOTE | 2023-08-20 22:24 | P.CNS ---
Date of Consult: 08/20/23 Reason for Consult: ESRD Requesting Physician: Tera Monson Chief Complaint: slurred speech History of Present Illness: 67-year-old female with history of ESRD on HD MWF, chronic diastolic congestive heart failure, diabetes mellitus type [id number], hypertension, hyperlipidemia presents the emergency department for slurred speech. Presents for evaluation for strokelike symptoms, NIH stroke scale 1 with mild dysarthria, 1 for moderate aphasia, patient has a history on dialysis Friday, no reported falls, use of blood thinners. No reported chest pain, shortness of breath. Plan to admit for slurred speech rule out CVA, end-stage renal disease on hemodialysis, consult neurology, speech evaluation. Microcytic anemia 10.9, 30.3, WBCs are normal left shift 75.3 elevated troponin at 117.5, trend troponin [id number] 09:41 This 68 yrs old Female presents to ER via EMS with complaints of stroke like ec2 symptoms. 09:41 Patient arrives today for evaluation of possible strokelike symptoms, last known well ec2 approximately 0805. Patient with slurred speech. Patient dialysis patient, will had taken approximate 1.5 L noted to be with slurred speech. Previous history of stroke, residual left- She was seen and examined in the ER. Symptoms noted at dialysis improved. Right sides LAYNE and jaw pain. Allergies Penicillins Allergy (Severe, Verified 04/09/22 21:55) Anaphylaxis amoxicillin Adverse Reaction (Severe, Verified 04/09/22 21:55) Anaphylaxis levofloxacin Adverse Reaction (Intermediate, Verified 04/09/22 21:55) Headaches Home medications list reviewed: Yes Home Medications: Aspirin [Aspirin EC] 81 mg PO DAILY 04/10/22 Atorvastatin Calcium [Lipitor*] 10 mg PO BID 04/10/22 Calcium Carbonate [Tums Regular*] 1,000 mg PO TIDWM 04/10/22 Carvedilol [Coreg] 3.125 mg PO BID 04/10/22 Cholecalciferol (Vitamin D3) [Vitamin D3] 1,000 unit PO DAILY 04/10/22 Clopidogrel Bisulfate [Plavix*] 75 mg PO DAILY 04/10/22 Gabapentin 100 mg PO BEDTIME 04/10/22 Vit B Comp C/Folic Acid/Vit D3 [Dialyvite 800 Plus D Wafer] 1 tab PO BEDTIME 04/10/22 Losartan Potassium [Cozaar*] 50 mg PO BID 08/20/23 Ubrogepant [Ubrelvy] 100 mg PO DAILY PRN #30 mg 08/21/23 hydrOXYzine HCL [Atarax] 50 mg PO Q8H PRN 30 Days #30 mg 08/21/23 - Past Medical/Surgical History Diabetic: Yes -: HTN -: DM II with CKD & Polyneuropathy -: Metabolic Syndrome. Obesity. -: Dyslipidemia. -: Diastolic CHF -: ESRD (Dr. Retana/ Dr. Huber) MWF -: PAD -: CVD -: Obesity -: Umbilical hernia repair x 2 -: Appendectomy -: Cystoscopy with Bladder Biopsy -: Hysteroscopy with D&C -: AVF Psychosocial/ Personal History: Patient lives at home with her daughter. - Family History Mother Medical History: Diabetes, Kidney disease Father Medical History: Other (see notes) Notes: Brain aneurysm - Social History Alcohol use: No CD- Drugs: No Caffeine use: Yes Place of Residence: Home Review of Systems 10-point ROS is otherwise unremarkable General: Weakness, Malaise Neurological: Weakness Physical Examination Temp Pulse Resp BP Pulse Ox 96.9 F 70 16 145/74 H 99 08/20/23 20:00 08/20/23 20:00 08/20/23 20:00 08/20/23 20:00 08/20/23 20:00 General: Oriented x3, Cooperative HEENT: Atraumatic Neck: Supple Respiratory: Clear to auscultation bilaterally Cardiovascular: Regular rate/rhythm, Edema, Systolic murmur Gastrointestinal: Soft and benign, Non-distended Musculoskeletal: No clubbing, No contractures Integumentary: No rashes Neurological: Normal speech Laboratory Data (last 24 hrs) 08/20/23 08/20/23 08/20/23 09:40 09:40 09:40 WBC 5.50 Hgb 10.0 L Hct 30.3 L Plt Count 145 L PT 12.1 INR 1.10 APTT 34.5 Sodium 134 L Potassium 4.0 BUN 30 H Creatinine 4.35 H Glucose 232 H Imagings Data: [id number] EXAM DESCRIPTION: MRI - Brain Wo Cont - 08/20/2023 4:57 pm CLINICAL HISTORY: Slurred speech COMPARISON: Head CT August 20, 2023 TECHNIQUE: Axial, sagittal, and coronal magnetic resonance images of the brain were obtained. FINDINGS: Mild signal within periventricular, deep and subcortical white matter probably ischemic changes secondary to small vessel disease Diffusion-weighted/ADC mapping does not reveal evidence of acute infarction. The ventricles are normal caliber. An extra-axial fluid collection is not noted. Mucus retention cyst left maxillary sinus. Mild signal within the mastoids IMPRESSION: No acute intracranial abnormality noted [address] EXAM DESCRIPTION: RADChest Single View08/20/2023 10:23 am CLINICAL HISTORY: CODE STROKE COMPARISON: Chest Single View dated 04/09/2022; Chest Single View dated 02/27/2022; Chest Pa And Lat (2 Views) dated 12/27/2021; Chest Single View dated 05/09/2020Chest Single View dated 04/09/2022; Chest Single View dated 02/27/2022; Chest Pa And Lat (2 Views) dated 12/27/2021; Chest Single View dated 05/09/2020 TECHNIQUE: Portable AP view of the chest. FINDINGS: The lungs are clear apart from stable bibasilar atelectatic changes. Elevation of the right hemidiaphragm again seen. No pneumothorax or effusion. The cardiomediastinal contours are unremarkable. IMPRESSION: No acute cardiopulmonary process. [address] EXAM DESCRIPTION: CT - Neck Angio - 08/20/2023 9:30 am CLINICAL HISTORY: code stroke Slurred speech. Difficulty moving after dialysis COMPARISON: Head C Spine Mpr Wo Con dated 07/10/2020; Head angio dated 08/20/2023 TECHNIQUE: Axial CT angiography images of the neck was performed with multiplanar and maximum intensity projection reconstructions. Images performed following intravenous administration of 100mL Isovue 370. All CT scans are performed using dose optimization technique as appropriate and may include automated exposure control or mA/KV adjustment according to patient size. Quantification of carotid stenosis, if any, is performed according to NASCET criteria. FINDINGS: A left aortic arch is identified with normal three vessel configurat ion of the great vessels. No significant flow abnormality is seen of the common carotid bilaterally. No significant stenosis is identified involving the cervical segments of both internal carotid arteries. Mild atherosclerotic calcifications at the carotid bulbs. Normal flow is seen within both vertebral arteries. Central predominant ground-glass opacities in the included upper lungs. IMPRESSION: No significant flow abnormality of the neck vessels is identified. Central predominant ground-glass opacities in the upper lungs, may reflect central pulmonary edema or congestion. [id number] EXAM DESCRIPTION: CT - Head angio - 08/20/2023 9:30 am CLINICAL HISTORY: code stroke COMPARISON: Ct Stroke Brain Wo Cont dated 08/20/2023; Head Brain Wo Cont dated 04/09/2022; Brain Wo Cont dated 02/28/2022 TECHNIQUE: Axial CT angiography images of the head was performed with multiplanar and maximum intensity projection reconstructions. Images performed following intravenous administration of 100mL Isovue 370. All CT scans are performed using dose optimization technique as appropriate and may include automated exposure control or mA/KV adjustment according to patient size. FINDINGS: No evidence of large vessel occlusion. No evidence of aneurysm or dissection flap is detected. No flow-limiting stenosis or vascular malformation identified. Antegrade flow is seen in the vertebral arteries. The right vertebral artery is diminutive and essentially terminates as a common right AICA/ PICA trunk. . The visualized dural venous sinuses are grossly patent. IMPRESSION: No evidence of large vessel occlusion or flow-limiting stenosis. Conclusions/Impression: ESRD on HD MWF Hyponatremia -HD TIW HTN with CKD/ CHF -Restart Coreg as indicated Diastolic CHF, chronic -HD with UF -Check echocardiogram DM II with CKD, Polyneuropathy and Peripheral Angiopathy -RISS Anemia in CKD -Retacrit prn CKD MBD -Start Calcitriol -Start Renvela Case reviewed with the hospitalist team Thank you kindly for the consultation
[2023-08-20] MEDS: ALPRAZOLAM 0.5 MG TABLET PO ONE (22:43)
[2023-08-21 06:37] LABS: Anion Gap 12.7 mEq/L (5.0-15.0); Magnesium 2.4 mg/dL (1.6-2.4); Potassium 4.7 mEq/L (3.5-5.1)
[2023-08-21 06:50] LABS: Absolute Basophils 0.1 K/uL (0-0.5); Absolute Eosinophils 0.2 K/uL (0-0.5); Absolute Monocytes 0.5 K/uL (0.1-1.3); Absolute Neutrophil 2.9 K/uL (1.8-8.0); Basophils % 1.2 % (0-1.3); Hematocrit 31.7 % (36.0-45.0); Hemoglobin 10.4 g/dL (12.0-15.0); Lymphocytes % 20.5 % (15.3-44.8); MCH 30.1 pg (27.0-35.0); MCHC 32.9 g/dL (32.0-36.0); MCV 91.5 fL (80-100); MPV 8.6 fL (7.6-11.3); Monocytes % 10.7 % (3.3-12.3); Neutrophils % 62.6 % (41.7-73.7); Nucleated Red Blood Cells % 0.1 % (0-0); Platelets 152 thou/uL (152-406); RBC Red Blood Cell Count 3.47 M/uL (3.86-4.86); Red Cell Distribution Width 16.3 % (12.1-15.2)
--- NOTE | 2023-08-21 08:19 | P.DS ---
Admission Date: 08/20/23 Discharge Date: 08/21/23 Reason for Admission: slurred speech Brief History of Present Illness: 67-year-old female with history of ESRD on HD MWF, chronic diastolic congestive heart failure, diabetes mellitus type [id number], hypertension, hyperlipidemia presents the emergency department for slurred speech. Presents for evaluation for strokelike symptoms, NIH stroke scale 1 with mild dysarthria, 1 for moderate aphasia, patient has a history on dialysis Friday, no reported falls, use of blood thinners. No reported chest pain, shortness of breath. Plan to admit for slurred speech rule out CVA, end-stage renal disease on hemodialysis, consult neurology, speech evaluation. Microcytic anemia 10.9, 30.3, WBCs are normal left shift 75.3 elevated troponin at 117.5, trend troponin - Physical Exam General: Alert, In no apparent distress, Oriented x3 HEENT: Atraumatic, Normocephalic Neck: Supple, 2+ carotid pulse no bruit Respiratory: Clear to auscultation bilaterally, Normal air movement Cardiovascular: Normal pulses, Regular rate/rhythm Gastrointestinal: Normal bowel sounds, Soft and benign Musculoskeletal: No clubbing, No swelling Integumentary: No rashes, No breakdown Neurological: Normal strength at 5/5 x4 extr, Hospital Course: 68 year-old female patient presented with migrane, slurred speech. Was noted to have migrane, Condition improved with speech eval, speech improved, as needed analgesics for migraine Patient tolerating diet, stable for discharge to home with follow-up appointment with primary care physician, was evaluated by nephrology, evaluated by neurology for slurred speech. PROBLEM: Right-sided migraine migraine radiates to the jaw slurreed speech End-stage renal disease hemodialysis Elevated troponin likely secondary to fluid volume overload from hemodialysis (no reported chest pain) Anxiety Topamax 25 mg daily for migraines Imitrex 50 mg daily, may repeat p.o. x 1 for severe migraine follow-up with normal neurology after discharge Atarax sent for every 8 hours for anxiety She was evaluated by speech therapy Follow-up with neurology for migraines MRI prior microvascular ischemic changes chronic, no acute infarct Follow-up with neurology after discharge Follow-up with nephrology for outpatient hemodialysis FridayDr. Aglieco Continue home medicines as previously prescribed GOAL: Clear understanding of disease process INSTRUCTIONS: Physician Discharge Instructions: -Follow-up with PCP in 1 to 2 weeks -Please call if any questions regarding hospital stay -Please call nursing station at [phone] if any nursing or medication questions -Return to the emergency room if symptoms worsen Diet: ADA, low sodium Activity: Fall precautions <Hali Godoy - Last Filed: 08/21/23 11:57> Admission Date: 08/20/23 Discharge Date: 08/21/23 Hospital Course: Pt seen and examined. I agree with note by the BUFFET ATTENDANT. Pt was admitted to r/o A. CT head and MRI brain were unremarkable. She complained of headache and we gave her topamax 25mg po daily, imitrex 25mg po q4hr sanchez and mag oxide 400mg po rola ly. Pt was advised to keep a log of the headache and follow up with Dr. Mtz, the neurologist. <Tera Monson - Last Filed: 08/21/23 13:10> Disposition: ROUTINE DISCHARGE Discharge Condition: FAIR Vital Signs/Physical Exam: Temp Pulse Resp BP Pulse Ox 97.7 F 66 18 107/50 L 96 08/21/23 04:00 08/21/23 04:00 08/21/23 04:00 08/21/23 04:00 08/21/23 04:00 Laboratory Data at Discharge: WBC 4.70 thou/uL (4.3-10.9) 08/21/23 05:45 Hgb 10.4 g/dL (12.0-15.0) L 08/21/23 05:45 Hct 31.7 % (36.0-45.0) L 08/21/23 05:45 Plt Count 152 thou/uL (152-406) 08/21/23 05:45 PT 12.1 SECONDS (9.5-12.5) 08/20/23 09:40 INR 1.10 08/20/23 09:40 APTT 34.5 SECONDS (24.3-36.9) 08/20/23 09:40 Sodium 133 mEq/L (136-145) L 08/21/23 05:45 Potassium 4.7 mEq/L (3.5-5.1) D 08/21/23 05:45 BUN 43 mg/dL (7-18) H 08/21/23 05:45 Creatinine 5.80 mg/dL (0.55-1.02) H 08/21/23 05:45 Glucose 137 mg/dL (74-106) H 08/21/23 05:45 Magnesium 2.4 mg/dL (1.6-2.4) 08/21/23 05:45 <Hali Godoy - Last Filed: 08/21/23 11:57> Vital Signs/Physical Exam: Temp Pulse Resp BP Pulse Ox 97.9 F 64 16 132/63 97 08/21/23 12:00 08/21/23 12:00 08/21/23 12:00 08/21/23 12:00 08/21/23 12:00 Laboratory Data at Discharge: WBC 4.70 thou/uL (4.3-10.9) 08/21/23 05:45 Hgb 10.4 g/dL (12.0-15.0) L 08/21/23 05:45 Hct 31.7 % (36.0-45.0) L 08/21/23 05:45 Plt Count 152 thou/uL (152-406) 08/21/23 05:45 PT 12.1 SECONDS (9.5-12.5) 08/20/23 09:40 INR 1.10 08/20/23 09:40 APTT 34.5 SECONDS (24.3-36.9) 08/20/23 09:40 Sodium 133 mEq/L (136-145) L 08/21/23 05:45 Potassium 4.7 mEq/L (3.5-5.1) D 08/21/23 05:45 BUN 43 mg/dL (7-18) H 08/21/23 05:45 Creatinine 5.80 mg/dL (0.55-1.02) H 08/21/23 05:45 Glucose 137 mg/dL (74-106) H 08/21/23 05:45 Magnesium 2.4 mg/dL (1.6-2.4) 08/21/23 05:45 LDL Cholesterol Direct 47 mg/dL (100-129) L 08/21/23 05:25 <Tera Monson - Last Filed: 08/21/23 13:10> Time spent managing pt's care (in minutes): 55 <Hali Godoy - Last Filed: 08/21/23 11:57> <Tera Monson - Last Filed: 08/21/23 13:10> Home Medications: Aspirin [Aspirin EC] 81 mg PO DAILY 04/10/22 Atorvastatin Calcium [Lipitor*] 10 mg PO BID 04/10/22 Calcium Carbonate [Tums Regular*] 1,000 mg PO TIDWM 04/10/22 Carvedilol [Coreg] 3.125 mg PO BID 04/10/22 Cholecalciferol (Vitamin D3) [Vitamin D3] 1,000 unit PO DAILY 04/10/22 Clopidogrel Bisulfate [Plavix*] 75 mg PO DAILY 04/10/22 Gabapentin 100 mg PO BEDTIME 04/10/22 Vit B Comp C/Folic Acid/Vit D3 [Dialyvite 800 Plus D Wafer] 1 tab PO BEDTIME 04/10/22 Losartan Potassium [Cozaar*] 50 mg PO BID 08/20/23 Magnesium Oxide [Mag 0X*] 400 mg PO DAILY 30 Days #30 tab 08/21/23 Sumatriptan [Imitrex*] 50 mg PO PRN PRN 30 Days #30 tab 08/21/23 Topiramate [Topamax*] 25 mg PO DAILY 30 Days #30 tab 08/21/23 Topiramate [Topamax*] 25 mg PO DAILY 30 Days #30 tab 08/21/23 hydrOXYzine HCL [Atarax] 50 mg PO Q8H PRN 30 Days #30 mg 08/21/23 New Medications: hydrOXYzine HCL [Atarax] 50 mg PO Q8H PRN 30 Days #30 mg PRN Reason: Anxiety Sumatriptan [Imitrex*] 50 mg PO PRN PRN 30 Days #30 tab PRN Reason: Pain Scale 8-10 (Severe) Magnesium Oxide [Mag 0X*] 400 mg PO DAILY 30 Days #30 tab Topiramate [Topamax*] 25 mg PO DAILY 30 Days #30 tab Physician Discharge Instructions: 68 year-old female patient presented with migrane, slurred speech. Was noted to have migrane, Condition improved with speech eval, speech improved, as needed analgesics for migraine, as needed analgesic Patient tolerating diet, stable for discharge to home with follow-up appointment with primary care physician, was evaluated by nephrology, evaluated by neurology for slurred speech. PROBLEM: Right-sided migraine migraine radiates to the jaw slurreed speech End-stage renal disease hemodialysis Elevated troponin likely secondary to fluid volume overload from hemodialysis (no reported chest pain) Anxiety Topamax 25 mg daily for migraines Imitrex 50 mg daily, may repeat p.o. x 1 for severe migraine follow-up with normal neurology after discharge Atarax sent for every 8 hours for anxiety She was evaluated by speech therapy Follow-up with neurology for migraines MRI prior microvascular ischemic changes chronic, no acute infarct Follow-up with neurology after discharge INSTRUCTIONS: Physician Discharge Instructions: -Follow-up with PCP in 1 to 2 weeks -Please call Dr. Patiño at [phone] if any questions regarding hospital stay -Please call nursing station at [phone] if any nursing or medication questions -Return to the emergency room if symptoms worsen Diet: ADA, low sodium Activity: Fall precautions Followup: Jabari Retana DO [ACTIVE - CAN ADMIT] - Imer Mtz MD [ASSOCIATE-ACTIVE - CAN ADMIT] - SHOLA JOLLEY [Primary Care Provider] -
[2023-08-21] MEDS: HYDROMORPHONE HCL 0.5 MG/0.5 ML INJ IV ONE (10:26)
[2023-08-21] MEDS: LORAZEPAM 0.5 MG TABLET PO SCH (10:35)
--- NOTE | 2023-08-21 11:19 | P.PN ---
Date of Service: 08/21/23 Vital Signs Temp Pulse Resp BP Pulse Ox 97.1 F 72 18 143/66 H 98 08/21/23 08:00 08/21/23 08:00 08/21/23 10:26 08/21/23 08:00 08/21/23 10:26 Medications Acetaminophen (Acetaminophen 500 Mg Tab) 500 mg PO Q4HP PRN PRN Reason: Pain scale 2-4 (Mild) Last Admin: 08/20/23 17:33 Dose: 500 mg Acetaminophen/Butalbital/Caffeine (Acetamin/Caffeine/Butalb Tab) 1 tab PO Q4H PRN PRN Reason: Pain scale 8-10 (Severe) Last Admin: 08/21/23 08:09 Dose: 1 tab Heparin Sodium (Porcine) (Heparin 5000 Unit/Ml 1 Ml Vial) 5,000 unit SQ Q8HR [facility] Last Admin: 08/21/23 08:09 Dose: 5,000 unit Insulin Human Regular (Insulin Regular (Human) 100 Unit/Ml) 0 unit SQ [facility]; Protocol Last Admin: 08/21/23 07:30 Dose: Not Given Lorazepam (Lorazepam 0.5 Mg Tablet) 0.5 mg PO BID [facility] Last Admin: 08/21/23 10:35 Dose: 0.5 mg Ondansetron HCl (Ondansetron 4 Mg/2 Ml Vial) 4 mg IV Q6HP PRN PRN Reason: NAUSEA / VOMITING Assessment/ Plan: Nephrology Progress Note No Dyspnea No Chest Pain Right sided headache with jaw pain Anxiety No Acute Events Overnight Vital Signs, Medications, Blood Work, and Imaging reviewed in the chart General: Oriented x3, Cooperative HEENT: Atraumatic Neck: Supple Respiratory: Clear to auscultation bilaterally Cardiovascular: Regular rate/rhythm, Edema, Systolic murmur Gastrointestinal: Soft and benign, Non-distended Musculoskeletal: No clubbing, No contractures Integumentary: No rashes. Distal LE hyperpigmentation Neurological: Normal speech Laboratory Data (last 24 hrs) 08/20/23 08/20/23 08/20/23 09:40 09:40 09:40 WBC 5.50 Hgb 10.0 L Hct 30.3 L Plt Count 145 L PT 12.1 INR 1.10 APTT 34.5 Sodium 134 L Potassium 4.0 BUN 30 H Creatinine 4.35 H Glucose 232 H Imagings Data: [id number] EXAM DESCRIPTION: MRI - Brain Wo Cont - 08/20/2023 4:57 pm CLINICAL HISTORY: Slurred speech COMPARISON: Head CT August 20, 2023 TECHNIQUE: Axial, sagittal, and coronal magnetic resonance images of the brain were obtained. FINDINGS: Mild signal within periventricular, deep and subcortical white matter probably ischemic changes secondary to small vessel disease Diffusion-weighted/ADC mapping does not reveal evidence of acute infarction. The ventricles are normal caliber. An extra-axial fluid collection is not noted. Mucus retention cyst left maxillary sinus. Mild signal within the mastoids IMPRESSION: No acute intracranial abnormality noted [address] EXAM DESCRIPTION: RADChest Single View08/20/2023 10:23 am CLINICAL HISTORY: CODE STROKE COMPARISON: Chest Single View dated 04/09/2022; Chest Single View dated 02/27/2022; Chest Pa And Lat (2 Views) dated 12/27/2021; Chest Single View dated 05/09/2020Chest Single View dated 04/09/2022; Chest Single View dated 02/27/2022; Chest Pa And Lat (2 Views) dated 12/27/2021; Chest Single View dated 05/09/2020 TECHNIQUE: Portable AP view of the chest. FINDINGS: The lungs are clear apart from stable bibasilar atelectatic changes. Elevation of the right hemidiaphragm again seen. No pneumothorax or effusion. The cardiomediastinal contours are unremarkable. IMPRESSION: No acute cardiopulmonary process. [address] EXAM DESCRIPTION: CT - Neck Angio - 08/20/2023 9:30 am CLINICAL HISTORY: code stroke Slurred speech. Difficulty moving after dialysis COMPARISON: Head C Spine Mpr Wo Con dated 07/10/2020; Head angio dated 08/20/2023 TECHNIQUE: Axial CT angiography images of the neck was performed with multiplanar and maximum intensity projection reconstructions. Images performed following intravenous administration of 100mL Isovue 370. All CT scans are performed using dose optimization technique as appropriate and may include automated exposure control or mA/KV adjustment according to patient size. Quantification of carotid stenosis, if any, is performed according to ANDREW CET criteria. FINDINGS: A left aortic arch is identified with normal three vessel configuration of the great vessels. No significant flow abnormality is seen of the common carotid bilaterally. No significant stenosis is identified involving the cervical segments of both internal carotid arteries. Mild atherosclerotic calcifications at the carotid bulbs. Normal flow is seen within both vertebral arteries. Central predominant ground-glass opacities in the included upper lungs. IMPRESSION: No significant flow abnormality of the neck vessels is identified. Central predominant ground-glass opacities in the upper lungs, may reflect central pulmonary edema or congestion. [id number] EXAM DESCRIPTION: CT - Head angio - 08/20/2023 9:30 am CLINICAL HISTORY: code stroke COMPARISON: Ct Stroke Brain Wo Cont dated 08/20/2023; Head Brain Wo Cont dated 04/09/2022; Brain Wo Cont dated 02/28/2022 TECHNIQUE: Axial CT angiography images of the head was performed with multiplanar and maximum intensity projection reconstructions. Images performed following intravenous administration of 100mL Isovue 370. All CT scans are performed using dose optimization technique as appropriate and may include automated exposure control or mA/KV adjustment according to patient size. FINDINGS: No evidence of large vessel occlusion. No evidence of aneurysm or dissection flap is detected. No flow-limiting stenosis or vascular malformation identified. Antegrade flow is seen in the vertebral arteries. The right vertebral artery is diminutive and essentially terminates as a common right AICA/ PICA trunk. . The visualized dural venous sinuses are grossly patent. IMPRESSION: No evidence of large vessel occlusion or flow-limiting stenosis. Conclusions/Impression: ESRD on HD MWF Hyponatremia -HD TIW HTN with CKD/ CHF -Restart Coreg as indicated Diastolic CHF, chronic -HD with UF -Check echocardiogram DM II with CKD, Polyneuropathy and Peripheral Angiopathy -RISS Anemia in CKD -Retacrit prn CKD MBD -Continue Calcitriol -Continue Renvela Case reviewed with the hospitalist team
[2023-08-21] MEDS ORDERED: SUMATRIPTAN SUCCI 50 MG TAB PO PRN (11:37)
[2023-08-21] MEDS: TOPIRAMATE 25 MG TAB PO SCH (14:05)
[2023-08-21] MEDS: MAGNESIUM OXIDE 400 MG TAB PO SCH (14:06)
[2023-08-21] MEDS: SUMATRIPTAN SUCCI 50 MG TAB PO PRN ×2 (14:06→16:38)
--- NOTE | 2023-08-21 14:27 | EKG ---
Test Date: 2023-08-20 Test Time: 09:34:08 Stage Set Designer: ERIKA MEASUREMENT RESULTS: Intervals: Rate: 77 WV: 188 QRSD: 126 QT: 438 QTc: 495 [place]: P: 5 WV: 188 QRS: -32 T: 50 INTERPRETIVE STATEMENTS: Normal sinus rhythm Left axis deviation Left bundle branch block Abnormal ECG Compared to ECG 04/09/2022 17:20:28 Left-axis deviation now present Left bundle-branch block now present Uncertain supraventricular rhythm no longer present Myocardial infarct finding no longer present Electronically Signed On 08-21-23 14:23:42 CDT by Jay Jay Ruano
[2023-08-21] MEDS: HYDROCODONE/APAP 5/325 MG TAB PO ONE (15:34)
[2023-08-21] MEDS ORDERED: HYDROCODONE/APAP 7.5/325 MG TAB PO PRN (17:31)
--- NOTE | 2023-08-21 17:35 | P.PN ---
Subjective Date of Service: 08/21/23 Chief Complaint: slurred speech sill having headaches, she has been evaluated by Dr Mtz, migrane medications ordered, not currently effective - Physical Exam General: Alert, In no apparent distress, Oriented x3 HEENT: Atraumatic, Normocephalic Neck: Supple, 2+ carotid pulse no bruit Respiratory: Clear to auscultation bilaterally, Normal air movement Cardiovascular: Normal pulses, Regular rate/rhythm Gastrointestinal: Normal bowel sounds, Soft and benign Musculoskeletal: No clubbing, No swelling Integumentary: No rashes, No breakdown Neurological: Normal strength at 5/5 x4 extr, Abnormal speech <Hali Godoy - Last Filed: 08/21/23 17:33> Date of Service: 08/21/23 <Tera Monson - Last Filed: 08/21/23 22:08> Review of Systems per HPI <Hali Godoy - Last Filed: 08/21/23 17:33> Physical Examination - Vital Signs Temperature: 96.8 F Blood Pressure: 164/70 Pulse: 67 Respirations: 18 Pulse Ox (%): 94 <JayneHali - Last Filed: 08/21/23 17:33> Assessment And Plan - Plan Assessment plan Slurred speech, rule out CVA Headache Speech eval, MRI brain ordered Neurology eval Bedside swallow study prior to p.o. intake End-stage renal disease on hemodialysis Nephrology consulted Hemodialysis Friday nephrology consulted for dialysis, complete 50% of treatment friday, appears mildly overloaded. Elevated troponin likely secondary from fluid volume overload from end-stage renal disease Trend troponin Cardiology, DMII-non insulin dependent with hypoglycemia: Accu-Cheks, SSI Acute on chronic diastolic congestive heart failure: Volume mgmt with dialysis, continue home meds. HTN:continue home meds HLD:continue home meds DVT PPX: Heparin Code status:Full Discharge Plan: Home Discharge Plan: Home - Code Status/Comfort Care Code Status: Full Code Time Spent Managing PTS Care (In Minutes): 35 <Hali Godoy - Last Filed: 08/21/23 17:33> - Plan Pt seen and examined. I agree with the note by the INSTRUMENT PROCESSING TECH.Pt presented with slurred speech s/o hypotension. CT head and MRI brain are unremarkable. Pt complains of right sided headache. COnsulted Neurology. Likely due to migraine. Will give topamax, imitrex and magnesium oxide. <Tera Monson - Last Filed: 08/21/23 22:08>
[2023-08-21] MEDS: ONDANSETRON 4 MG/2 ML VIAL IV PRN (18:16)
[2023-08-21] MEDS: METHYLPREDNISOLONE 125 MG INJ IV ONE (18:16)
[2023-08-21] MEDS ORDERED: NALOXONE 0.4 MG/ML VIAL ONE ×2 (18:43→20:23)
--- NOTE | 2023-08-21 19:03 | RAD REPORT ---
EXAM DESCRIPTION: CT - Ct Stroke Brain Wo Cont - 08/21/2023 6:54 pm CLINICAL HISTORY: Unresponsive COMPARISON: Head CT August 21, 2023 TECHNIQUE: Computed axial tomography of the head was obtained. All CT scans are performed using dose optimization technique as appropriate and may include automated exposure control or mA/KV adjustment according to patient size. FINDINGS: Contrast from prior imaging on the same date is present within vessels. No abnormal enhancement is seen. An intracranial bleed is not seen . The ventricles are normal in caliber. No extra-axial fluid collection is noted. Mild low-density within periventricular, deep and subcortical white matter likely ischemic changes se condary to small vessel disease Fluid within the sinuses/ mastoids is not seen. IMPRESSION: No acute intracranial abnormality is seen. Patient's nurse Lara was notified 6:48 p.m. August 21, 2023
[2023-08-21] MEDS: NALOXONE 0.4 MG/ML VIAL IV ONE ×2 (19:10→20:40)
[2023-08-21 19:13] LABS: Absolute Eosinophils 0.3 K/uL (0-0.5); Absolute Lymphocytes (CBC) 1.2 K/uL (0.7-4.9); Absolute Monocytes 0.6 K/uL (0.1-1.3); Absolute Neutrophil 2.7 K/uL (1.8-8.0); Basophils % 0.9 % (0-1.3); Eosinophils % 6.2 % (0-4.4); Hematocrit 31.7 % (36.0-45.0); Hemoglobin 10.4 g/dL (12.0-15.0); Lymphocytes % 24.6 % (15.3-44.8); MCHC 32.8 g/dL (32.0-36.0); MCV 91.6 fL (80-100); MPV 8.5 fL (7.6-11.3); Monocytes % 11.8 % (3.3-12.3); Neutrophils % 56.5 % (41.7-73.7); Nucleated Red Blood Cells % 0.1 % (0-0); Platelets 156 thou/uL (152-406); RBC Red Blood Cell Count 3.46 M/uL (3.86-4.86); Red Cell Distribution Width 16.2 % (12.1-15.2)
[2023-08-21 19:24] LABS: Anion Gap 14.3 mEq/L (5.0-15.0); Potassium 5.3 mEq/L (3.5-5.1)
[2023-08-21 19:33] LABS: PTT, Activated Partial Thromb 34.3 SECONDS (24.3-36.9)
[2023-08-21 19:34] LABS: PT Prothrombin Time 12.2 SECONDS (9.5-12.5); Protime INR 1.11
[2023-08-21] MEDS ORDERED: MANNITOL 25% 12.5 GM/50 ML VIAL IV PRN (20:24)
[2023-08-21] MEDS ORDERED: NA CHLORIDE 0.9% 1,000 ML IV PRN (20:24)
[2023-08-21] MEDS ORDERED: EPOETIN ALFA 10,000 UNIT/ML VIAL IV SCH (20:30)
[2023-08-21] MEDS ORDERED: LORAZEPAM 0.5 MG TABLET PO SCH (21:00)
[2023-08-21] MEDS ORDERED: ALBUMIN HUMAN 25% 50 ML IV SCH (21:00)
[2023-08-21 21:25] LABS: Arterial Blood Carboxyhemoglob 1.3 % (0-1.5); Blood Gas Oxyhemoglobin 93.1 % (94-97); Blood O2 Saturation 96.5 % (92-98.5)
--- NOTE | 2023-08-21 21:50 | RAD REPORT ---
EXAM DESCRIPTION: CT - Chest Abd Pelvis Wo Con - 08/21/2023 9:13 pm CLINICAL HISTORY: Fall with chest and abdominal pain COMPARISON: 2017 TECHNIQUE: Computed axial tomography of the chest, abdomen and pelvis was obtained. Oral contrast wa s given. IV contrast was not requested. All CT scans are performed using dose optimization technique as appropriate and may include automated exposure control or mA/KV adjustment according to patient size. FINDINGS: The evaluation of mediastinum, nahum, vessels and solid organs is limited secondary to the lack of IV contrast administration A lung contusion is not present. Mild left lower lobe atelectasis and scarring. A pleural effusion is not present. A pericardial effusion is not seen. A mediastinal hematoma is not seen. The liver, spleen, pancreas, adrenals, kidneys and bladder do not demonstrate a traumatic injury. There is no evidence of diverticulitis. Moderate right hydronephrosis. Most of the right ureter is dilated. Very distal right ureter normal c aliber Ventral hernia repair IMPRESSION: No acute traumatic injury involving the chest, abdomen or pelvis is seen Moderate right hydronephrosis with dilatation of most of the right ureter. An ureteral calculus is no t seen. This could be secondary to a stricture or small mass within the ureter
--- NOTE | 2023-08-21 21:57 | RAD REPORT ---
EXAM DESCRIPTION: CT - C Spine Wo Con - 08/21/2023 9:14 pm CLINICAL HISTORY: Neck pain status post fall COMPARISON: 2020 TECHNIQUE: Computed axial tomography of the cervical spine were obtained with sagittal and coronal r econstruction images generated and reviewed. All CT scans are performed using dose optimization technique as appropriate and may include automated exposure control or mA/KV adjustment according to patient size. FINDINGS: A cervical fracture is not seen. No dislocation. Spondylosis cervical spine IMPRESSION: A cervical fracture is not seen. If the patient continues have symptoms to suggest spinal cord/spinal canal pathology then MRI would b e recommended.
[2023-08-22 06:01] LABS: Albumin 3.2 g/dL (3.4-5.0); Albumin/Globulin Ratio 0.9 (1.1-1.8); Anion Gap 16.3 mEq/L (5.0-15.0); Bilirubin Direct 0.2 mg/dL (0-0.2); Bilirubin Indirect, Calculated 0.2 mg/dL (0.2-0.8); Bilirubin Total 0.4 mg/dL (0.2-1.0); Globulin 3.7 g/dL (2.3-3.5); Magnesium 2.7 mg/dL (1.6-2.4); Phosphorus 7.6 mg/dL (2.5-4.9); Protein, Total 6.9 g/dL (6.4-8.2)
[2023-08-22 06:02] LABS: Potassium 6.3 mEq/L (3.5-5.1)
--- NOTE | 2023-08-22 06:47 | P.PN ---
Subjective Date of Service: 08/22/23 Chief Complaint: slurred speech Discharge held due to sill having headaches, she has been evaluated by Dr Mtz, migrane medications ordered, not currently effective Rapid response was called overnight due to patient sedated, patient given Narcan transferred to ICU - Physical Exam General: Alert, In no apparent distress, Oriented x3 HEENT: Atraumatic, Normocephalic Neck: Supple, 2+ carotid pulse no bruit Respiratory: Clear to auscultation bilaterally, Normal air movement Cardiovascular: Normal pulses, Regular rate/rhythm Gastrointestinal: Normal bowel sounds, Soft and benign Musculoskeletal: No clubbing, No swelling Integumentary: No rashes, No breakdown Neurological: Normal strength at 5/5 x4 extr, reports headache 6 out of 10 pain Review of Systems Per HPI Physical Examination - Vital Signs Temperature: 97 F Blood Pressure: 147/66 Pulse: 84 Respirations: 14 Pulse Ox (%): 100 Assessment And Plan - Plan Assessment plan Slurred speech, rule out CVA Headache Speech eval, MRI brain ordered Neurology eval Bedside swallow study prior to p.o. intake 08/20 Transferred to ICU due to code stroke called, patient currently being treated for severe migraine given Kulm 7.5 Patient given Narcan transferred to ICU End-stage renal disease on hemodialysis Nephrology consulted Hemodialysis Friday nephrology consulted for dialysis, complete 50% of treatment friday, appears mildly overloaded. Elevated troponin likely secondary from fluid volume overload from end-stage renal disease Trend troponin Cardiology, DMII-non insulin dependent with hypoglycemia: Accu-Cheks, SSI Acute on chronic diastolic congestive heart failure: Volume mgmt with dialysis, continue home meds. HTN:continue home meds HLD:continue home meds DVT PPX: Heparin Code status:Full Discharge Plan: Home Discharge Plan: Home - Code Status/Comfort Care Code Status: Full Code Critical Care: Yes Time Spent Managing PTS Care (In Minutes): 65
--- NOTE | 2023-08-22 06:55 | ECHO ---
HEIGHT: 5 ft 2 in WEIGHT: 209 lb 0 oz DATE OF STUDY: 08/21/[address]: Jabari Retana DO 2-DIMENSIONAL: YES M.MODE: YES DOPPLER: YES COLOR FLOW: YES TDS: YES PORTABLE: YES DEFINITY: BUBBLE STUDY: DIAGNOSIS: CONGESTIVE HEART FAILURE, MURMUR CARDIAC HISTORY: CATHERIZATION: NO SURGERY: NO PROSTHETIC VALVE: NO PACEMAKER: NO MEASUREMENTS (cm) DIASTOLIC (NORMALS) SYSTOLIC (NORMALS) IVSd 1.2 (0.6-1.2) LA Diam 4.0 (1.9-4.0) LVEF 56% LVIDd 3.9 (3.5-5.7) LVIDs 2.8 (2.0-3.5) %FS 29% LVPWd 1.2 (0.6-1.2) Ao Diam 2.7 (2.0-3.7) 2 DIMENSIONAL ASSESSMENT: RIGHT ATRIUM: NORMAL LEFT ATRIUM: ENLARGED RIGHT VENTRICLE: NORMAL LEFT VENTRICLE: MILD LEFT VENTRICULAR HYPERTROPHY TRICUSPID VALVE: MILD TRICUSPID REGURGITATION MITRAL VALVE: MODERATE MITRAL ANNULAR CALCIFICATION PULMONIC VALVE: NORMAL AORTIC VALVE: CALCIFIED WITH AORTIC STENOSIS PERICARDIAL EFFUSION: NONE AORTIC ROOT: NORMAL LEFT VENTRICULAR WALL MOTION: NORMAL DOPPLER/COLOR FLOW: SEE BELOW COMMENTS: 1. NORMAL LEFT VENTRICULAR EJECTION FRACTION 55-60% 2. LEFT ATRIAL ENLARGEMENT 3. HEAVILY CALCIFIED AORTIC VALVE WITH MODERATE TO SEVERE AORTIC STENOSIS 4. MILD CONCENTRIC LEFT VENTRICULAR HYPERTROPHY TECHNOLOGIST: THAD ADAN
[2023-08-22] MEDS ORDERED: D50W 25 GM/50 ML SYRINGE IV PRN (07:10)
[2023-08-22] MEDS ORDERED: GLUCAGON 1 MG/VIAL IM PRN (07:10)
[2023-08-22] MEDS ORDERED: D10W 125 ML IV PRN (07:19)
[2023-08-22] MEDS ORDERED: INSULIN REGULAR (HUMAN) 100 UNIT/ML SQ ONE (07:20)
[2023-08-22] MEDS ORDERED: MAGNESIUM OXIDE 400 MG TAB ONE (07:59)
[2023-08-22] MEDS ORDERED: HEPARIN 5000 UNIT/ML 1 ML VIAL ONE (08:00)
[2023-08-22] MEDS ORDERED: INSULIN REGULAR (HUMAN) 100 UNIT/ML ONE (08:00)
[2023-08-22] MEDS ORDERED: LORAZEPAM 0.5 MG TABLET ONE (08:01)
[2023-08-22] MEDS ORDERED: CALCIUM GLUCONATE 1 GM IVPB 1 GM/50 ML BAG IV ONE (08:01)
[2023-08-22] MEDS: INSULIN REGULAR (HUMAN) 100 UNIT/ML IV ONE (08:05)
[2023-08-22] MEDS: CALCIUM GLUCONATE 1 GM IVPB 1 GM/50 ML BAG IV ONE (08:06)
[2023-08-22] MEDS ORDERED: MAGNESIUM OXIDE 400 MG TAB PO SCH (09:00)
[2023-08-22] MEDS ORDERED: TOPIRAMATE 25 MG TAB PO SCH ×3 (09:00→13:56)
[2023-08-22 09:03] LABS: Absolute Lymphocytes (CBC) 0.5 K/uL (0.7-4.9); Absolute Neutrophil 4.6 K/uL (1.8-8.0); Basophils % 0.4 % (0-1.3); Eosinophils % 0.1 % (0-4.4); Lymphocytes % 10.3 % (15.3-44.8); MCH 29.4 pg (27.0-35.0); MCHC 31.5 g/dL (32.0-36.0); MCV 93.1 fL (80-100); MPV 9.4 fL (7.6-11.3); Monocytes % 0.6 % (3.3-12.3); Neutrophils % 88.6 % (41.7-73.7); Nucleated Red Blood Cells % 0.1 % (0-0); Platelets 142 thou/uL (152-406); RBC Red Blood Cell Count 3.76 M/uL (3.86-4.86); Red Cell Distribution Width 16.5 % (12.1-15.2)
[2023-08-22 09:30] LABS: Platelet Estimate ADEQ; White Blood Cell Scan OK (OK)
[2023-08-22 09:31] LABS: Basophilic Stippling 1+; Blood Morphology Comment NOTED (NOT SEEN)
[2023-08-22] MEDS: TOPIRAMATE 25 MG TAB PO SCH (10:00)
[2023-08-22 11:33] VITALS: O2SAT 98
--- NOTE | 2023-08-22 11:45 | P.PN ---
Nephrology note: (S) Chart reviewed extensively, reviewed test reports/results. Pt still citing Rt sided frontal LAYNE this AM. Pt did briefly work with PT, but felt weak so was only out of bed briefly, acknowledges some lightheadedness, BP lower after cuff adjustment so UF goal lowered (O) Vitals reviewed in the EMR General: NAD but a bit anxious, appears chronically ill HEENT: Atraumatic, Normocephalic, EOMI Neck: Supple Respiratory: Normal air movement, non tachypnec no rales Cardiovascular: Non tachy, no sig LE edema at this time Gastrointestinal: Soft and benign, No tenderness Musculoskeletal: No contractures, Lt UE AVF Integumentary: No rashes, stasis dermatitis across LE Neurological: Normal speech, alert, oriented, no tremors or myoclonus Laboratory Data (last 24 hrs) Reviewed in the EMR Conclusions/Impression: -ESRD 2nd to chronic conditions. HD today per OP dialysis schedule but amended orders, see for details -Hyperkalemia -dialysis with low K bath -Labile BP, chronic HTN with CKD -BP better on recheck, no signs of volume overload on imaging. Will lower UF goals, will adjust EDW in center. -LAYNE, unspecified -still present. Speech dysarthria reported on admission, resolved. Neuroimaging without acute findings, neuro eval pending. 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 -Hydronephrosis unspecified. Unclear if it represents a ureteral stricture or other. Hx of UTIs, hematuria in the past, sees Dr. Elise, recommend OP eval, no current correlating symptoms Pankaj Huber MD, [facility]
--- NOTE | 2023-08-22 12:41 | P.DS ---
Admission Date: 08/20/23 Discharge Date: 08/22/23 Reason for Admission: slurred speech Brief History of Present Illness: 67-year-old female with history of ESRD on HD MWF, chronic diastolic congestive heart failure, diabetes mellitus type [id number], hypertension, hyperlipidemia presents the emergency department for slurred speech. Presents for evaluation for strokelike symptoms, NIH stroke scale 1 with mild dysarthria, 1 for moderate aphasia, patient has a history on dialysis Friday, no reported falls, use of blood thinners. No reported chest pain, shortness of breath. Plan to admit for slurred speech rule out CVA, end-stage renal disease on hemodialysis, consult neurology, speech evaluation. Microcytic anemia 10.9, 30.3, WBCs are normal left shift 75.3 elevated troponin at 117.5, trend troponin - Physical Exam General: Alert, In no apparent distress, Oriented x3 HEENT: Atraumatic, Normocephalic Neck: Supple, 2+ carotid pulse no bruit Respiratory: Clear to auscultation bilaterally, Normal air movement Cardiovascular: Normal pulses, Regular rate/rhythm Gastrointestinal: Normal bowel sounds, Soft and benign Musculoskeletal: No clubbing, No swelling Integumentary: No rashes, No breakdown Neurological: Normal strength at 5/5 x4 extr, Hospital Course: 68 year-old female patient presented with migrane, slurred speech. Was noted to have migrane, Condition improved with speech eval, speech improved, as needed analgesics for migraine Patient tolerating diet, stable for discharge to home with follow-up appointment with primary care physician, was evaluated by nephrology, evaluated by neurology for slurred speech. PROBLEM: Right-sided migraine migraine radiates to the jaw slurreed speech End-stage renal disease hemodialysis Elevated troponin likely secondary to fluid volume overload from hemodialysis (no reported chest pain) Anxiety Hydronephrosis Outpatient physical therapy, speech therapy ordered by case management for subacute CVA, slurred speech Follow-up with nephrology after discharge Topamax 25 mg daily for migraines Imitrex 50 mg daily, may repeat p.o. x 1 for severe migraine follow-up with normal neurology after discharge Atarax sent for every 8 hours for anxiety She was evaluated by speech therapy Follow-up with neurology for migraines MRI prior microvascular ischemic changes chronic, no acute infarct Follow-up with neurology after discharge Follow-up with nephrology for outpatient hemodialysis FridayAung Retana Continue home medicines as previously prescribed GOAL: Clear understanding of disease process INSTRUCTIONS: Physician Discharge Instructions: -Follow-up with PCP in 1 to 2 weeks -Please call if any questions regarding hospital stay -Please call nursing station at [phone] if any nursing or medication questions -Return to the emergency room if symptoms worsen Diet: ADA, low sodium Activity: Fall precautions <Hali Godoy - Last Filed: 08/22/23 12:43> Admission Date: 08/20/23 Discharge Date: 08/22/23 Hospital Course: Pt seen and examined. I agree with the note by the IT INTERN. Pt transferred to the ICu yesterday due to sedation from opiates. It resolved after she received narcan. Pt still has headache. Will continue topamax, mag oxide and prn imitrex. Will dc soon. <Tera Monson - Last Filed: 08/22/23 13:15> Disposition: ROUTINE DISCHARGE Discharge Condition: FAIR Vital Signs/Physical Exam: Temp Pulse Resp BP Pulse Ox 97.8 F 80 20 147/56 H 100 08/22/23 08:00 08/22/23 09:00 08/22/23 09:00 08/22/23 09:00 08/22/23 09:00 Laboratory Data at Discharge: WBC 5.20 thou/uL (4.3-10.9) 08/22/23 04:45 Hgb 11.0 g/dL (12.0-15.0) L 08/22/23 04:45 Hct 35.0 % (36.0-45.0) L 08/22/23 04:45 Plt Count 142 thou/uL (152-406) L 08/22/23 04:45 PT 12.2 SECONDS (9.5-12.5) 08/21/23 18:58 INR 1.11 08/21/23 18:58 APTT 34.3 SECONDS (24.3-36.9) 08/21/23 18:58 Sodium 132 mEq/L (136-145) L 08/22/23 04:32 Potassium 6.3 mEq/L (3.5-5.1) H* D 08/22/23 04:32 BUN 61 mg/dL (7-18) H 08/22/23 04:32 Creatinine 7.32 mg/dL (0.55-1.02) H 08/22/23 04:32 Glucose 294 mg/dL (74-106) H 08/22/23 04:32 Phosphorus 7.6 mg/dL (2.5-4.9) H 08/22/23 04:32 Magnesium 2.7 mg/dL (1.6-2.4) H 08/22/23 04:32 Total Bilirubin 0.4 mg/dL (0.2-1.0) 08/22/23 04:32 AST 11 U/L (15-37) L 08/22/23 04:32 ALT 22 U/L (13-56) 08/22/23 04:32 Alkaline Phosphatase 103 U/L (45-117) 08/22/23 04:32 LDL Cholesterol Direct 47 mg/dL (100-129) L 08/21/23 05:25 <Hali Godoy - Last Filed: 08/22/23 12:43> Vital Signs/Physical Exam: Temp Pulse Resp BP Pulse Ox 97.8 F 80 20 147/56 H 100 08/22/23 08:00 08/22/23 09:00 08/22/23 09:00 08/22/23 09:00 08/22/23 09:00 Laboratory Data at Discharge: WBC 5.20 thou/uL (4.3-10.9) 08/22/23 04:45 Hgb 11.0 g/dL (12.0-15.0) L 08/22/23 04:45 Hct 35.0 % (36.0-45.0) L 08/22/23 04:45 Plt Count 142 thou/uL (152-406) L 08/22/23 04:45 PT 12.2 SECONDS (9.5-12.5) 08/21/23 18:58 INR 1.11 08/21/23 18:58 APTT 34.3 SECONDS (24.3-36.9) 08/21/23 18:58 Sodium 132 mEq/L (136-145) L 08/22/23 04:32 Potassium 6.3 mEq/L (3.5-5.1) H* D 08/22/23 04:32 BUN 61 mg/dL (7-18) H 08/22/23 04:32 Creatinine 7.32 mg/dL (0.55-1.02) H 08/22/23 04:32 Glucose 294 mg/dL (74-106) H 08/22/23 04:32 Phosphorus 7.6 mg/dL (2.5-4.9) H 08/22/23 04:32 Magnesium 2.7 mg/dL (1.6-2.4) H 08/22/23 04:32 Total Bilirubin 0.4 mg/dL (0.2-1.0) 08/22/23 04:32 AST 11 U/L (15-37) L 08/22/23 04:32 ALT 22 U/L (13-56) 08/22/23 04:32 Alkaline Phosphatase 103 U/L (45-117) 08/22/23 04:32 LDL Cholesterol Direct 47 mg/dL (100-129) L 08/21/23 05:25 <Tera Monson - Last Filed: 08/22/23 13:15> Diet: Renal Activity: Fall precautions Time spent managing pt's care (in minutes): 55 <Hali Godoy - Last Filed: 08/22/23 12:43> <Tera Monson - Last Filed: 08/22/23 13:15> Home Medications: Aspirin [Aspirin EC] 81 mg PO DAILY 04/10/22 Atorvastatin Calcium [Lipitor*] 10 mg PO BID 04/10/22 Calcium Carbonate [Tums Regular*] 1,000 mg PO TIDWM 04/10/22 Carvedilol [Coreg] 3.125 mg PO BID 04/10/22 Cholecalciferol (Vitamin D3) [Vitamin D3] 1,000 unit PO DAILY 04/10/22 Clopidogrel Bisulfate [Plavix*] 75 mg PO DAILY 04/10/22 Gabapentin 100 mg PO BEDTIME 04/10/22 Vit B Comp C/Folic Acid/Vit D3 [Dialyvite 800 Plus D Wafer] 1 tab PO BEDTIME 04/10/22 Losartan Potassium [Cozaar*] 50 mg PO BID 08/20/23 Magnesium Oxide [Mag 0X*] 400 mg PO DAILY 30 Days #30 tab 08/21/23 Sumatriptan [Imitrex*] 50 mg PO PRN PRN 30 Days #30 tab 08/21/23 Topiramate [Topamax*] 25 mg PO DAILY 30 Days #30 tab 08/21/23 Topiramate [Topamax*] 25 mg PO DAILY 30 Days #30 tab 08/21/23 hydrOXYzine HCL [Atarax] 50 mg PO Q8H PRN 30 Days #30 mg 08/21/23 New Medications: hydrOXYzine HCL [Atarax] 50 mg PO Q8H PRN 30 Days #30 mg PRN Reason: Anxiety Sumatriptan [Imitrex*] 50 mg PO PRN PRN 30 Days #30 tab PRN Reason: Pain Scale 8-10 (Severe) Magnesium Oxide [Mag 0X*] 400 mg PO DAILY 30 Days #30 tab Topiramate [Topamax*] 25 mg PO DAILY 30 Days #30 tab Physician Discharge Instructions: 68 year-old female patient presented with migrane, slurred speech. Was noted to have migrane, Condition improved with speech eval, speech improved, as needed analgesics for migraine, as needed analgesic Patient tolerating diet, stable for discharge to home with follow-up appointment with primary care physician, was evaluated by nephrology, evaluated by neurology for slurred speech. PROBLEM: Right-sided migraine migraine radiates to the jaw slurreed speech End-stage renal disease hemodialysis Elevated troponin likely secondary to fluid volume overload from hemodialysis (no reported chest pain) Anxiety Topamax 25 mg daily for migraines Imitrex 50 mg daily, may repeat p.o. x 1 for severe migraine follow-up with normal neurology after discharge Atarax sent for every 8 hours for anxiety She was evaluated by speech therapy Follow-up with neurology for migraines MRI prior microvascular ischemic changes chronic, no acute infarct Follow-up with neurology after discharge INSTRUCTIONS: Physician Discharge Instructions: -Follow-up with PCP in 1 to 2 weeks -Please call Dr. Patiño at [phone] if any questions regarding hospital stay -Please call nursing station at [phone] if any nursing or medication questions -Return to the emergency room if symptoms worsen Diet: ADA, low sodium Activity: Fall precautions Referral for outpatient physical and speech therapy sent to: [facility] [address] PT/OT/ST/Cardiac Rehab If you have not received call by Friday, 08/26, please call for appointment. Followup: Jabari Retana DO [ACTIVE - CAN ADMIT] - Imer Mtz MD [ASSOCIATE-ACTIVE - CAN ADMIT] - OOT,OOT [Primary Care Provider] - Jere Elise [ACTIVE - CAN ADMIT] -
[2023-08-22 14:13] LABS: Hepatitis B Surface Ab - Quant 7.17 mIU/mL (<8.0); Hepatitis B surface AG Interp. Nonreactive (Nonreactive)
[2023-08-22 14:14] LABS: HBsAG Nonreactive Report Report
[2023-08-22 17:07] VITALS: BP 148/53; TEMP 97.3
[2023-08-23] MEDS ORDERED: MAGNESIUM OXIDE 400 MG TAB PO SCH (09:00)
== END 2023-08-22 16:30 | disposition home or self-care (01) | DRG 102 ==
LOC: ER 09:11 → 4TH 11:19 → 3RD-ICU 08-21 19:24
PROVIDERS: ADMIT Hospitalist; ATTEND Hospitalist
PROC: 5A1D70Z Performance of Urinary Filtration, Intermittent, Less than 6 Hours Per Day (ICD-10-PCS; principal; 2023-08-20)
PROC: 4A033R1 Measurement of Arterial Saturation, Peripheral, Percutaneous Approach (ICD-10-PCS; 2023-08-21)
DX: G43.909 Migraine, unspecified, not intractable, without status migrainosus (principal); I50.33 Acute on chronic diastolic (congestive) heart failure; N18.6 End stage renal disease; I13.2 Hypertensive heart and chronic kidney disease with heart failure and with stage 5 chronic kidney disease, or end stage renal disease; R47.01 Aphasia; E87.1 Hypo-osmolality and hyponatremia; N13.30 Unspecified hydronephrosis; E11.22 Type 2 diabetes mellitus with diabetic chronic kidney disease; E11.51 Type 2 diabetes mellitus with diabetic peripheral angiopathy without gangrene; E11.42 Type 2 diabetes mellitus with diabetic polyneuropathy; E11.649 Type 2 diabetes mellitus with hypoglycemia without coma; D63.1 Anemia in chronic kidney disease; D50.9 Iron deficiency anemia, unspecified; E66.9 Obesity, unspecified; F41.9 Anxiety disorder, unspecified; E87.5 Hyperkalemia; E78.5 Hyperlipidemia, unspecified; I44.7 Left bundle-branch block, unspecified; R47.81 Slurred speech; R79.89 Other specified abnormal findings of blood chemistry; R29.702 NIHSS score 2; Z99.2 Dependence on renal dialysis; Z88.0 Allergy status to penicillin; Z90.49 Acquired absence of other specified parts of digestive tract; Z79.82 Long term (current) use of aspirin; Z68.38 Body mass index [BMI] 38.0-38.9, adult; Z79.02 Long term (current) use of antithrombotics/antiplatelets; Z79.899 Other long term (current) drug therapy; Z90.710 Acquired absence of both cervix and uterus; Z91.158 Patient's noncompliance with renal dialysis for other reason
CPT/HCPCS: 36415; 36600; 70450; 70496; 70498; 70551; 71045; 71250; 72125; 74176; 80048; 80076; 82805; 82947; 83735; 83880; 84100; 84484; 85025; 85610; 85730; 86140; 86706; 87340; 90935; 92523; 93005; 93306; 97110; 97116; 97161; 97530; 99285; J0612; J1170; J1644; J1815; J2310; J2405; J2930; J3101; Q9967

== ENCOUNTER 2024-05-03 20:05 | Inpatient (IN) | payer BC ==
--- OUTSIDE RECORDS SUMMARY | 2024-05-03 20:09 | XMS REPORT | Continuity of Care Document ---
Author Name Unknown Address [address] [facility] [address] [place] [address] [facility] Address [address] [facility] [address] [place] [address] Care Team Providers Care Food And Nutrition Supervisor Name Role Phone SALOMÓN NELSON Primary Care Physician UnavailERICH Carlton Attending Clinician Unavailable ASHISH DAAN Attending Clinician Unavailab le GC_GCBZW_Kamadisona_S Attending Clinician Unavaila DARRIN Womack Attending Clinician UnavailDarrin Seaman MD Attending Clinician [phone] Doctor Unassigned, Millard Attending Clinician Zahida Dumont Attending Clinician EMMA HA Attending Clinician Unavailable ASHISH ADAN Admitting Clinician Unavailab le GC_GCBZW_Kamadisona_S Admitting Clinician UnavailDARRIN Rodgers Admitting Clinician Unavail le Payers Payer Name Policy Type Policy Number Effective Date Expirati on Date Source [place] [id number] 2023 00:00:00 MEDICARE PART A \T\ B [id number] 2020 00:00:00 [place] [id number] 2021 00:00:00 Problems Condition Name Condition Details Condition Category Status Onset Date Resolution Date Last Treatment Date Treating Clinician Comments Source Morbid obesity with body mass index of 40.0-49.9 Morbid obesity with body mass index of 40.0-49.9 Disease Active 02-01 00:00: 00 [facility] Morbid obesity with body mass index of 40.0-49.9 Morbid obesity with body mass index of 40.0-49.9 Disease Active 02-01 00:00: 00 [facility] Acute respirator y disease due to COVID-19 virus Acute respirator y disease due to COVID-19 virus Disease Active 01-13 00:00: 00 [facility] Obesity (BMI 30-39.9) Obesity (BMI 30-39.9) Disease Active 01-13 00:00: 00 [facility] Urinary tract obstructio n Obstructiv e and reflux uropathy, unspecifie d Problem [facility] [id number] Cerebrovas cular accident (CVA), unspecifie d mechanism Problem [facility] [id number] End stage renal disease Problem Common [facility] [id number] Cystitis bacillary, chronic Problem [facility] [id number] Hydronephr osis, right Problem [facility] [id number] Recurrent UTI Problem [facility] [id number] Dependence on renal dialysis Problem [facility] [id number] Cystitis Problem [facility] [id number] Gross hematuria Problem [facility] [id number] Suprapubic pain Problem [facility] [id number] Lower urinary tract symptoms (LUTS) Problem [facility] [id number] Pelvic pain Problem [facility] [id number] Acute lower UTI Problem [facility] [id number] Acute cystitis with hematuria Problem [facility] Allergies, Adverse Reactions, Alerts Allergy Name Allergy Type Status Severity Reaction(s) Onset Date Inactive Date Treating Clinician Comments Source Penicill in Propensi ty to adverse reaction s Active Anaphylaxis 2014-06 00:00: 00 [facility] PENICILL IN DRUG INGREDI Active Anaphylaxis 2014-06 00:00: 00 [facility] [id number] Drug allergy Active Unknown [facility] Social History Social Habit Start Date Stop Date Quantity Comments Source History of Tobacco Use [facility] Sex Assigned At [facility] Exposure to SARS-CoV-2 (event) 2021-09-17 00:00:00 2021-09-27 09:49:00 Not sure [facility] History SDOH Transport Med 2020-01-14 00:00:00 2020-01-14 00:00:00 2 [facility] History SDOH Transport Non-Med 2020-01-14 00:00:00 2020-01-14 00:00:00 2 [facility] Tobacco use and exposure 2020-01-14 00:00:00 2020-01-14 00:00:00 Never used [facility] Alcohol intake 2020-01-14 00:00:00 2020-01-14 00:00:00 0 /d [facility] History SDOH Financial 2020-01-14 00:00:00 2020-01-14 00:00:00 1 [facility] History SDOH Food Worry 2020-01-14 00:00:00 2020-01-14 00:00:00 3 [facility] History SDOH Food Scarcity 2020-01-14 00:00:00 2020-01-14 00:00:00 3 [facility] Smoking Status Start Date Stop Date Source Never Smoker [facility] Medications Ordered Medication Name Filled Medication Name Start Date Stop Date Current Medication? Ordering Clinician Indication Dosage Frequency Signature (SIG) Comments Components Source Meropenem 500 MG Meropenem 500 MG 01-21 00:00: 00 02-04 00:00 :00 No Meropenem 500 MG Bactrim DS 800-160 MG Bactrim DS 800-160 MG 6 00:00: 00 12-09 00:00 :00 No Bactrim DS 800-160 MG aspirin 81 mg chewable tablet 02-09 00:00: 00 05-11 05:59 :00 No [id number] 81mg Take 1 tablet by mouth daily for 90 days. [facility] cholecalcif filiberto, vitamin D3, 25 mcg (1,000 unit) tablet 02-09 00:00: 00 05-11 05:59 :00 No [id number] 1000U Take 1 tablet by mouth daily for 90 days. [facility] ferrous sulfate 325 mg (65 mg iron) tablet 02-09 00:00: 03-12 04:59 :00 No [id number] 325mg Take 1 tablet by mouth daily for 30 days. [facility] naproxen sodium (ALEVE) 220 mg capsule 02-08 21:56: 18 Yes 220{cap johan} Take 220 Caps by mouth as needed. [facility] naproxen sodium (ALEVE) 220 mg capsule 02-08 16:56: 18 Yes 220{cap johan} Take 220 Caps by mouth as needed. [facility] Lancets [facility] 02-08 00:00: 00 Yes [id number] Use as directed [facility] Blood-Gluco se Meter Kit 02-08 00:00: 00 Yes [id number] Use as directed [facility] Lancets Mis 02-08 00:00: 00 Yes [id number] Use as directed [facility] Blood-Gluco se Meter Kit 02-08 00:00: 00 Yes [id number] Use as directed [facility] Blood Glucose Strip-Disp Meter Kit 02-08 00:00: 00 Yes [id number] Use as directed [facility] amLODIPine 10 mg tablet 02-08 00:00: 05-10 05:59 :00 No [id number] 10mg Take 1 tablet by mouth daily for 90 days. [facility] carvediloL 12.5 mg tablet 02-08 00:00: 05-10 05:59 :00 No [id number] 12.5mg Take 1 tablet by mouth 2 (two) times daily with meals for 90 days. [facility] sennosides 8.6 mg tablet 02-08 00:00: 05-10 05:59 :00 No [id number] 8.6mg Take 1 tablet by mouth 2 (two) times daily for 90 days. [facility] Insulin Glargine (LANTUS SOLOSTAR U-100 INSULIN) 100 unit/mL (3 mL) injection 02-08 00:00: 05-10 05:59 :00 No [id number] 20U inject 20 Units under the skin at bedtime for 90 days. [facility] hydrALAZINE 25 mg tablet 02-08 00:00: 05-10 05:59 :00 No [id number] 25mg Take 1 tablet by mouth 2 (two) times daily for 90 days. [facility] furosemide 40 mg tablet 01-09 00:00: 00 Yes TAKE 1 TABLET BY MOUTH TWICE A DAY [facility] cyclobenzap rine 10 mg tablet 2018-06 00:00: 00 Yes 10mg Take 10 mg by mouth. [facility] metoclopram renato HCl 5 mg tablet 2018-06 00:00: 00 Yes 5mg Take 5 mg by mouth. [facility] pantoprazol e 40 mg EC tablet 2018-06 00:00: 00 Yes 40mg Take 40 mg by mouth. [facility] pravastatin 40 mg tablet 2018-06 00:00: 00 Yes 40mg Take 40 mg by mouth. [facility] Aspirin 81 81 MG Aspirin 81 81 MG No 1{table t} QD Aspirin 81 81 MG Lactulose 20 GM/30ML Lactulose 20 GM/30ML No 15{ml} QD Lactulose 20 GM/30ML Colace 100 MG Colace 100 MG No 1{capsu le_as_n eeded} QD Colace 100 MG glipiZIDE 5 MG glipiZIDE 5 MG No QD glipiZIDE 5 MG Atorvastati n Calcium 10 MG Atorvastati n Calcium 10 MG No 1{table t} QD Atorvastat in Calcium 10 MG glipiZIDE 5 MG glipiZIDE 5 MG No QD glipiZIDE 5 MG Plavix 75 MG Plavix 75 MG No 1{table t} QD Plavix 75 MG Colace 100 MG Colace 100 MG No 1{capsu le_as_n eeded} QD Colace 100 MG Vitamin D3 6096509 UNIT/GM Vitamin D3 4062941 UNIT/GM No Vitamin D3 7407767 UNIT/GM Aspirin 81 81 MG Aspirin 81 [...] eeded} QD Colace 100 MG Vitamin D3 3849264 UNIT/GM Vitamin D3 0817604 UNIT/GM No Vitamin D3 7719725 UNIT/GM Aspirin 81 81 MG Aspirin 81 [...] eeded} QD Colace 100 MG Vitamin D3 7486261 UNIT/GM Vitamin D3 1626667 UNIT/GM No Vitamin D3 0571967 UNIT/GM Aspirin 81 81 MG Aspirin 81 [...] - No 1{table t} QD Dialyvite - Losartan Potassium 25 MG Losartan Potassium 25 [...] 1{capsu le_as_n eeded} QD Colace 100 MG Carvedilol 3.125 MG Carvedilol 3.125 MG No 1{table t_with_ food} BID Carvedilol 3.125 MG Vitamin D3 2459056 UNIT/GM Vitamin D3 4374207 UNIT/GM No Vitamin D3 9842588 UNIT/GM Losartan Potassium 25 MG Losartan Potassium 25 MG No QD Losartan Potassium 25 MG Renvela 800 MG Renvela 800 MG No 1{table t_with_ meals} TID Renvela 800 MG Dialyvite - Dialyvite - No 1{table t} QD Dialyvite - Gabapentin 100 MG Gabapentin 100 MG No 1{capsu le} QD Gabapentin 100 MG Vital Signs Vital Name Observation Time Observation Value Comments S ource height 2022-06-13 11:15:00 62 [in_i] Comm n [facility] weight 2022-06-13 11:15:00 29.4 [lb_av] Com [facility] temperature 2022-06-13 11:15:00 97.4 [degF] Com [facility] bmi 2022-06-13 11:15:00 5.38 kg/m2 Comm n [facility] oximetry 2022-06-13 11:15:00 97 % CommLos [facility] respiratory rate 2022-06-13 11:15:00 16 /min [facility] blood pressure systolic 2022-06-13 11:15:00 135 mm[Hg] Common [facility] blood pressure diastolic 2022-06-13 11:15:00 62 mm[Hg] Common [facility] height 2021-12-13 10:00:00 62 [in_i] Commo n [facility] weight 2021-12-13 10:00:00 223 [lb_av] Comm on [facility] temperature 2021-12-13 10:00:00 97.8 [degF] Com mon [facility] bmi 2021-12-13 10:00:00 40.78 kg/m2 Comm on [facility] oximetry 2021-12-13 10:00:00 98 % Commo n [facility] respiratory rate 2021-12-13 10:00:00 16 /min [facility] blood pressure systolic 2021-12-13 10:00:00 132 mm[Hg] Common [facility] blood pressure diastolic 2021-12-13 10:00:00 68 mm[Hg] Common [facility] height 2021-11-29 15:30:00 62 [in_i] Commo n [facility] weight 2021-11-29 15:30:00 223.8 [lb_av] Co mmon [facility] temperature 2021-11-29 15:30:00 97.2 [degF] Com mon [facility] bmi 2021-11-29 15:30:00 40.93 kg/m2 Comm on [facility] oximetry 2021-11-29 15:30:00 98 % Commo n [facility] respiratory rate 2021-11-29 15:30:00 16 /min [facility] blood pressure systolic 2021-11-29 15:30:00 189 mm[Hg] Common [facility] blood pressure diastolic 2021-11-29 15:30:00 73 mm[Hg] [facility] Procedures Procedure Date / Time Performed Performing Clinician Source MR LUMBAR SPINE WO CONTRAST 2021-10-03 17:33:38 Darrin Jett [facility] MR CERVICAL SPINE WO CONTRAST 2021-09-27 16:22:00 Darrin Jett [facility] NOTICE OF PRIVACY PRACTICES 2021-09-27 14:56:14 Doctor Unassigned, Millard [facility] CONSENT/REFUSAL FOR DIAGNOSIS AND TREATMENT 2021-09-27 14:55:59 Doctor Unassigned, Millard [facility] CONSENT/REFUSAL FOR DIAGNOSIS AND TREATMENT 2021-09-27 14:55:21 Doctor Unassigned, Millard [facility] ASSIGNMENT OF BENEFITS 2021-09-27 14:54:58 Docto r Unassigned, Millard [facility] AUTHORIZATION FOR RELEASE OF PHI 2020-03-07 05:01:00 Doctor Unassigned, Millard [facility] Encounters Start Date/Time End Date/Time Encounter Type Admission Type Attending [facility] Care Facility Care Department Encounter ID Source 2022-02-18 14:14:03 Outpatient ERICH AMOS [facility] [id number] [facility] 2021-11-29 14:01:03 Outpatient ERICH AMOS [facility] [id number] [facility] 2023-11-02 22:23:00 2023-11-03 00:40:00 Emergency X ASHISH ADAN [facility] ERT [id number] [facility] 2023-04-01 00:00:00 2023-04-01 00:00:00 Outpatient GC_GCBZW_Ka diyala_S PRIV PRIV [id number] [facility] 2023-03-31 00:00:00 2023-03-31 00:00:00 Outpatient GC_GCBZW_Ka diyala_S PRIV PRIV [id number] [facility] 2022-08-20 00:00:00 2022-08-20 00:00:00 (TEL) [facility] [id number] [facility] 2022-06-27 00:00:00 2022-06-27 00:00:00 (TEL) [facility]LMLC [facility] [id number] [facility] 2022-06-13 00:00:00 2022-06-13 00:00:00 OFFICE VISIT EST PT LEVEL 3 [facility]LMLC ST[facility]C [id number] [facility] 2022-03-08 00:00:00 2022-03-08 00:00:00 OL DIG E/M SVC 21+ MIN STLMLC STLMLC [id number] [facility] 2022-02-01 00:00:00 2022-02-01 00:00:00 (TEL) STLMLC STLMLC [id number] [facility] 2022 00:00:00 2022 00:00:00 OFFICE VISIT ESTAB PT LEVEL 1 STLMLC STLMLC [id number] [facility] 2021-12-13 00:00:00 2021-12-13 00:00:00 OFFICE VISIT ESTAB PT LEVEL 2 STLMLC STLMLC [id number] [facility] 2021-11-29 00:00:00 2021-11-29 00:00:00 OFFICE VISIT NEW PT LEVEL 4 STLMLC STLMLC [id number] [facility] 2021-10-03 11:18:32 2021-10-03 23:59:00 [id number] 2021-10-03 11:18:32 2021-10-03 23:59:00 [facility] [id number] [facility] 2021-09-27 09:30:00 2021-09-27 23:59:00 Hospital Encounter [facility] [id number] [id number] [id number] [facility] 2021-09-27 09:51:28 2021-09-27 09:29:00 Outpatient R DARRIN JETT [facility] [id number] [facility] 2021-09-27 09:00:00 2021-09-27 09:29:00 Hospital Encounter Darrin Jett [facility] [id number] [id number] [id number] [facility] 2020-03-07 00:00:00 2020-03-07 00:00:00 Orders Only Doctor Unassigned, Millard [facility] [id number] [id number] 4.2.7.2.686 [id number] [facility] 2020-03-07 00:00:00 2020-03-07 00:00:00 Orders Only Doctor Unassigned, Millard [facility] [id number] 4.2.7.2.686 [id number] 2020-02-10 00:00:00 2020-02-10 00:00:00 Transition of Care Zahida Girard [id number] 350.1.13.10 4.2.7.2.686 [id number] [facility] 2020-02-10 00:00:00 2020-02-10 00:00:00 Transition of Care Zahida Girard [id number] [id number] [id number] 2020-01-13 21:11:00 2020-01-13 21:11:00 Emergency X EMMA HA [facility] ERT [id number] [facility]
[2024-05-03 20:58] LABS: Absolute Eosinophils 0.2 K/uL (0-0.5); Absolute Lymphocytes (CBC) 0.7 K/uL (0.7-4.9); Absolute Monocytes 0.5 K/uL (0.1-1.3); Absolute Neutrophil 3.2 K/uL (1.8-8.0); Basophils % 0.7 % (0-1.3); Eosinophils % 3.7 % (0-4.4); Hematocrit 23.5 % (36.0-45.0); Hemoglobin 7.7 g/dL (12.0-15.0); Lymphocytes % 15.8 % (15.3-44.8); MCH 30.1 pg (27.0-35.0); MPV 8.2 fL (7.6-11.3); Neutrophils % 69.8 % (41.7-73.7); Nucleated Red Blood Cells % 0.2 % (0-0); Platelets 149 thou/uL (152-406); RBC Red Blood Cell Count 2.58 M/uL (3.86-4.86); Red Cell Distribution Width 17.4 % (12.1-15.2)
[2024-05-03 21:02] LABS: PT Prothrombin Time 13.1 SECONDS (9.4-12.5); Protime INR 1.18
[2024-05-03 21:12] LABS: SARS-CoV-2 Antigen CONTROL BLUE LINE VIS/BG OK; SARS-CoV-2 Antigen Rapid Res Negative (Negative)
[2024-05-03 21:33] LABS: ALT/SGPT 20 U/L (13-56); Albumin 3.5 g/dL (3.4-5.0); Albumin/Globulin Ratio 1.1 (1.1-1.8); Alkaline Phosphatase 125 U/L (45-117); Anion Gap 9.1 mEq/L (5.0-15.0); BUN Blood Urea Nitrogen 23 mg/dL (7-18); Bicarbonate 30 mEq/L (21-32); Bilirubin Direct 0.2 mg/dL (0-0.2); Bilirubin Indirect, Calculated 0.2 mg/dL (0.2-0.8); Bilirubin Total 0.4 mg/dL (0.2-1.0); Globulin 3.3 g/dL (2.3-3.5); Glomerular Filtration Rate 11 ml/min (=/>90); Glucose Level 165 mg/dL (74-106); Magnesium 2.3 mg/dL (1.6-2.4); NT PRO-BNP 91754 pg/mL (<125); Potassium 4.1 mEq/L (3.5-5.1); Protein, Total 6.8 g/dL (6.4-8.2); Sodium Level 137 mEq/L (136-145)
[2024-05-03 21:34] LABS: AST/SGOT < 10 U/L (15-37)
[2024-05-03 21:35] LABS: Troponin High Sensitivity 98.2 pg/mL (<58.9)
--- NOTE | 2024-05-03 21:56 | RAD REPORT ---
EXAMINATION: ONE VIEW CHEST XR CLINICAL INDICATION: Female, 69 years old.,DYSPNEA TECHNIQUE: Frontal chest projection is submitted. Examination is limited by patient positioning and t echnique. COMPARISON: 02/22/2024 FINDINGS: Patchy perihilar opacities, elevation of the right hemidiaphragm, possible small effusion are stable. No pneumothorax. Stable cardiomegaly. Mediastinal contours are unremarkable. IMPRESSION: Stable findings which may suggest CHF. No new focal opacities.
--- NOTE | 2024-05-03 22:01 | EDPHYS ---
Physician Documentation [facility] Name: Abby Meredith Age: 69 yrs Sex: Female : 1955 Arrival Date: 05/03/2024 Time: 20:05 Bed 6 Private MD: ED Physician Anabella Fisher HPI: 05/03 20:12 This 69 yrs old Female presents to ER via Unassigned with complaints of sp3 shortness of breath and weakness. 20:12 . 69-year-old female with history of end-stage renal disease on Friday sp3 dialysis with last dialysis today, diabetes, hypertension, hyperlipidemia, CHF now presents to the ED with chief complaint shortness of breath and generalized weakness for the last 2 to 3 days patient denies any fever, headache, chest pain, abdominal pain, nausea, vomiting, diarrhea, syncope, near syncope, focal neurological deficit, rash, known sick contacts, travel history, prolonged immobilization, or any other signs or symptoms on ROS at this time.. Historical: - Allergies: 20:20 PENICILLINS; cp4 - PMHx: 20:20 CHF; Diabetes - IDDM; Hyperlipidemia; Dialysis; M-W-F; Hypertension; cp4 - Immunization history:: Adult Immunizations up to date. - Infectious Disease History:: Denies. - Social history:: Smoking status: Patient denies any tobacco usage or history of. ROS: 20:13 Constitutional: Negative for fever, chills, and weight loss, Eyes: Negative for injury, sp3 pain, redness, and discharge, Neck: Negative for injury, pain, and swelling, Cardiovascular: Negative for chest pain, palpitations, and edema, Abdomen/GI: Negative for abdominal pain, nausea, vomiting, diarrhea, and constipation, Back: Negative for injury and pain, MS/Extremity: Negative for injury and deformity, Skin: Negative for injury, rash, and discoloration, Neuro: Negative for headache, weakness, numbness, tingling, and seizure, Psych: Negative for depression, anxiety, suicide ideation, homicidal ideation, and hallucinations, Allergy/Immunology: Negative for hives, rash, and allergies, Endocrine: Negative for neck swelling, polydipsia, polyuria, polyphagia, and marked weight changes, Hematologic/Lymphatic: Negative for swollen nodes, abnormal bleeding, and unusual bruising, 20:13 All other systems are negative, Exam: 20:14 Constitutional: This is a well developed, well nourished patient who is awake, alert, sp3 and in no acute distress. Head/Face: Normocephalic, atraumatic. Eyes: Pupils equal round and reactive to light, extra-ocular motions intact. Lids and lashes normal. Conjunctiva and sclera are non-icteric and not injected. Cornea within normal limits. Periorbital areas with no swelling, redness, or edema. ENT: Nares patent. No nasal discharge, no septal abnormalities noted. External auditory canals are clear. Oropharynx with no redness, swelling, or masses, exudates, or evidence of obstruction, uvula midline. Mucous membranes moist. Neck: Trachea midline, no thyromegaly or masses palpated, and no cervical lymphadenopathy. Supple, full range of motion without nuchal rigidity, or vertebral point tenderness. No Meningismus. Chest/axilla: Normal chest wall appearance and motion. Nontender with no deformity. No lesions are appreciated. Cardiovascular: Regular rate and rhythm with a normal S1 and S2. No gallops, murmurs, or rubs. Normal PMI, no JVD. No pulse deficits. Abdomen/GI: Soft, non-tender, with normal bowel sounds. No distension or tympany. No guarding or rebound. No evidence of tenderness throughout. Back: No spinal tenderness. No costovertebral tenderness. Full range of motion. Skin: Warm, dry with normal turgor. Normal color with no rashes, no lesions, and no evidence of cellulitis. Neuro: Awake and alert, GCS 15, oriented to person, place, time, and situation. Cranial nerves II-XII grossly intact. Motor strength 5/5 in all extremities. Sensory grossly intact. Cerebellar exam normal. Normal gait. Psych: Awake, alert, with orientation to person, place and time. Behavior, mood, and affect are within normal limits. 20:14 Respiratory: Scattered Rales., 20:14 Musculoskeletal/extremity: 1+ peripheral edema pitting in nature.. 20:59 ECG was reviewed by the Attending Physician. EKG demonstrates normal sinus rhythm at 70 sp3 bpm with left bundle branch block nonspecific diffuse ST's ST changes without evidence of acute ischemia. Vital Signs: 20:18 BP 146 / 51; Pulse 72; Resp 18; Temp 98.7; Pulse Ox 100% ; Pain 0/10; cp4 21:46 BP 158 / 59; Pulse 67; Resp 18; Pulse Ox 100% ; cp4 23:02 BP 150 / 53; Pulse 70; Resp 18; Pulse Ox 100% ; cp4 20:18 Pain Scale: Adult cp4 MDM: 20:10 Medical Screening Exam initiated sp3 20:14 Data reviewed: vital signs, nurses notes, old medical records, lab test result(s), EKG, sp3 radiologic studies. ED course: 69-year-old female with PMH above now with generalized weakness and shortness of breath. Differential diagnosis includes congestive heart failure, volume overload, electrolyte abnormality, acute coronary syndrome, pneumonia, bronchitis, viral illness, among others. I am not highly spacious for sepsis, shock, aortic pathology, or any other critical process. Will obtain EKG, chest x-ray, general labs, swabs and general supportive care with disposition pending workup and patient course.. 05/03 20:11 Order name: Basic Metabolic Panel; Complete Time: 21:47 sp3 05/03 20:11 Order name: CBC with Diff; Complete Time: 21:47 sp3 05/03 20:11 Order name: LFT's; Complete Time: 21:47 sp3 05/03 20:11 Order name: Magnesium; Complete Time: 21:47 sp3 05/03 20:11 Order name: NT PRO-BNP; Complete Time: 21:47 sp3 05/03 20:11 Order name: PT-INR; Complete Time: 21:47 sp3 05/03 20:11 Order name: Troponin HS; Complete Time: 21:47 sp3 05/03 20:11 Order name: UAM sp3 05/03 20:11 Order name: Flu; Complete Time: 21:47 sp3 05/03 20:11 Order name: SARS RAPID; Complete Time: 21:47 sp3 05/03 20:11 Order name: Lactate w/ 2H reflex if indic.; Complete Time: 21:47 sp3 05/03 22:36 Order name: Urinalysis w/ reflexes EDMS 05/03 22:36 Order name: CBC with Automated Diff EDMS 05/03 22:36 Order name: CBC with Automated Diff EDMS 05/03 22:36 Order name: Comprehensive Metabolic Panel EDMS 05/03 22:36 Order name: Comprehensive Metabolic Panel EDMS 05/03 22:36 Order name: Magnesium EDMS 05/03 22:36 Order name: Magnesium EDMS 05/03 22:36 Order name: Phosphorus EDMS 05/03 22:36 Order name: Phosphorus EDMS 05/03 22:36 Order name: Troponin High Sensitivity EDMS 05/03 22:36 Order name: Troponin High Sensitivity EDMS 05/03 22:36 Order name: Troponin High Sensitivity EDMS 05/03 22:36 Order name: Troponin High Sensitivity EDMS 05/03 20:11 Order name: XRAY Chest (1 view); Complete Time: 21:57 sp3 05/03 20:11 Order name: Cardiac monitoring; Complete Time: 20:40 sp3 05/03 20:11 Order name: EKG - Nurse/Tech; Complete Time: 20:40 sp3 05/03 20:11 Order name: IV Saline Lock; Complete Time: 20:51 sp3 05/03 20:11 Order name: Labs collected and sent; Complete Time: 20:51 sp3 05/03 20:11 Order name: O2 Per Protocol; Complete Time: 20:40 sp3 05/03 20:11 Order name: O2 Sat Monitoring; Complete Time: 20:40 sp3 Administered Medications: 22:13 Not Given (Patient Refused; Patient does not urinate, dialysiss): [id number] mg IVP cp4 once; give over 2 minutes Disposition Summary: 05/03/24 22:00 Hospitalization Ordered Notes: Hospitalization Status: Inpatient Admission sp3 Provider: Crow Garsia sp3 [facility] sp3 Condition: Stable sp3 Problem: an acute exacerbation sp3 Symptoms: have worsened sp3 Bed/Room Type: Standard sp3 Room Assignment: 218(05/03/24 23:07) vc1 Diagnosis - Congestive heart failure, volume overload, anemia, elevated troponin sp3 Forms: - Medication Reconciliation Form sp3 - SBAR form sp3 - Leadership Thank You Letter sp3 Signatures: Dispatcher [employer] Anabella Soto MD MD sp3 Angie Peres RN RN vc1 Leta Mae cp4 Corrections: (The following items were deleted from the chart) 20:11 20:11 BASIC METABOLIC PANEL+C.LAB.BRZ ordered. EDMS EDMS 20:11 20:11 CBC+H.LAB.BRZ ordered. EDMS EDMS 20:11 20:11 HEPATIC FUNCTION+C.LAB.BRZ ordered. EDMS EDMS 20:11 20:11 MAGNESIUM+C.LAB.BRZ ordered. EDMS EDMS 20:11 20:11 PROBNP+C.LAB.BRZ ordered. EDMS EDMS 20:11 20:11 PROTIME (+INR)+COAG.LAB.BRZ ordered. EDMS EDMS 20:11 20:11 Troponin High Sensitivity+C.LAB.BRZ ordered. EDMS EDMS 20:11 20:11 Urinalysis W/Microscopic+U.LAB.BRZ ordered. EDMS EDMS 20:11 20:11 Influenza Screen (A \T\ B)+BA.LAB.BRZ ordered. EDMS EDMS 20:11 20:11 SARS-COV-2 Antigen Rapid+I.LAB.BRZ ordered. EDMS EDMS 20:11 20:11 LACTATE+C.LAB.BRZ ordered. EDMS EDMS 20:11 20:11 Chest Single View+RAD.RAD.BRZ ordered. EDMS EDMS 23:07 22:00 sp3 vc1
--- NOTE | 2024-05-03 22:01 | ER ---
Nurse's Notes [facility] Name: Abby Meredith Age: 69 yrs Sex: Female : 1955 Arrival Date: 05/03/2024 Time: 20:05 Bed 6 Private MD: Diagnosis: Congestive heart failure, volume overload, anemia, elevated troponin Presentation: 05/03 20:18 Chief complaint: EMS states: "not feeling well". Reports nausea and vomiting. cp4 Coronavirus screen: Client denies travel out of the [place] in the last 14 days. Ebola Screen: Patient negative for fever greater than or equal to 101.5 degrees Fahrenheit, and additional compatible Ebola Virus Disease symptoms Patient denies exposure to infectious person. Patient denies travel to an Ebola-affected area in the 21 days before illness onset. No symptoms or risks identified at this time. Initial Sepsis Screen: Does the patient meet any 2 criteria? No. Patient's initial sepsis screen is negative. Does the patient have a suspected source of infection? No. Patient's initial sepsis screen is negative. Risk Assessment: Do you want to hurt yourself or someone else? Patient reports no desire to harm self or others. Onset of symptoms was April 30, 2024. 20:18 Method Of Arrival: EMS: [facility] cp4 20:18 Acuity: TOMASA 3 cp4 Triage Assessment: 20:20 General: Appears in no apparent distress. uncomfortable, Behavior is calm, cooperative, cp4 appropriate for age. Pain: Denies pain. EENT: No signs and/or symptoms were reported regarding the EENT system. Neuro: Level of Consciousness is awake, alert, obeys commands, Oriented to person, place, time, situation. Cardiovascular: Patient's skin is warm and dry. Respiratory: Airway is patent Respiratory effort is even, unlabored. GI: Abdomen is round distended, Bowel sounds present X 4 quads. Abd is soft and non tender X 4 quads. Reports nausea, vomiting. : No signs and/or symptoms were reported regarding the genitourinary system. Derm: No signs and/or symptoms reported regarding the dermatologic system. Musculoskeletal: No signs and/or symptoms reported regarding the musculoskeletal system. Historical: - Allergies: 20:20 PENICILLINS; cp4 - PMHx: 20:20 CHF; Diabetes - IDDM; Hyperlipidemia; Dialysis; M-W-F; Hypertension; cp4 - Immunization history:: Adult Immunizations up to date. - Infectious Disease History:: Denies. - Social history:: Smoking status: Patient denies any tobacco usage or history of. Screenin:20 [facility] ED Fall Risk Assessment (Adult) History of falling in the last 3 months, cp4 including since admission No falls in past 3 months (0 pts) Confusion or Disorientation No (0 pts) Intoxicated or Sedated No (0 pts) Impaired Gait No (0 pts) Mobility Assist Device Used No (0 pt) Altered Elimination No (0 pt) Score/Fall Risk Level 0 - 2 = Low Risk Oriented to surroundings, Maintained a safe environment, Assessed \\T\\ reinforced patient's understanding of fall precautions, Hourly rounding (assess needs \\T\\ fall precautionary measures) done. Abuse screen: Denies threats or abuse. Nutritional screening: No deficits noted. Tuberculosis screening: No symptoms or risk factors identified. Assessment: 20:20 Reassessment: No changes from previously documented assessment. cp4 Vital Signs: 20:18 BP 146 / 51; Pulse 72; Resp 18; Temp 98.7; Pulse Ox 100% ; Pain 0/10; cp4 21:46 BP 158 / 59; Pulse 67; Resp 18; Pulse Ox 100% ; cp4 23:02 BP 150 / 53; Pulse 70; Resp 18; Pulse Ox 100% ; cp4 20:18 Pain Scale: Adult cp4 ED Course: 20:10 Patient arrived in ED. sp3 20:10 Anabella Fisher MD is Attending Physician. sp3 20:18 Leta Mae is Primary Nurse. cp4 20:20 Triage completed. cp4 20:20 Arm band placed on right wrist. Patient placed in an exam room, on a stretcher. cp4 20:20 Bed in low position. Call light in reach. Side rails up X 1. Provided Education on: cp4 admission. 20:20 No provider procedures requiring assistance completed. cp4 20:53 Inserted saline lock: 20 gauge in right antecubital area, using aseptic technique. af3 Blood collected. Flushed with 10 mL NS. 20:53 EKG done, by compliance field technician. af3 20:59 XRAY Chest (1 view) In Process Unspecified. EDMS 21:58 Crow Garsia MD is Hospitalizing Provider. sp3 23:13 Patient admitted, IV remains in place. cp4 Administered Medications: 22:13 Not Given (Patient Refused; Patient does not urinate, dialysiss): [id number] mg IVP cp4 once; give over 2 minutes Medication: 20:20 VIS not applicable for this client. cp4 Outcome: 22:00 Decision to Hospitalize by Provider. sp3 23:13 Admitted to Med/surg accompanied by tech, via stretcher, with chart, cp4 23:13 Condition: stable 23:13 Instructed on the need for admit, 23:49 Patient left the ED. cp4 Signatures: Dispatcher [employer] EDMS Anabella Fisher MD MD sp3 Leta Mae cp4 Breonna Lindsay af3
[2024-05-03] MEDS ORDERED: FUROSEMIDE 40 MG/4 ML VIAL ONE (22:09)
[2024-05-03] MEDS ORDERED: ALBUTEROL 2.5 MG/3 ML NEB SOL NEB PRN (22:30)
[2024-05-03] MEDS ORDERED: IPRATROPIUM BROM 0.5MG/2.5ML NEB PRN (22:30)
--- NOTE | 2024-05-03 22:37 | P.HP ---
Certification for Inpatient Patient admitted to: Inpatient With expected LOS: >2 Midnights Practitioner: I am a practitioner with admitting privileges, knowledge of patient current condition, hospital course, and medical plan of care. Services: Services provided to patient in accordance with Admission requirements found in Title 42 Section 412.3 of the Code of Federal Regulations Patient History Date of Service: 05/04/24 Reason for admission: SOB History of Present Illness: 69 yrs old Female with past medical history of diabetes, hypertension, hyperlipidemia, CHF, ESRD on dialysis Friday, presents to ER with shortness of breath and generalized weakness For the last 2 to 3 days. Patient denies any fever, headache, chest pain, abdominal pain, nausea, vomiting, diarrhea, syncope, near syncope, focal neurological deficit, rash, known sick contacts, travel history, Patient was assessed in the ER and is admitted for further management Allergies Penicillins Allergy (Severe, Verified 05/04/24 00:35) Anaphylaxis amoxicillin Adverse Reaction (Severe, Verified 05/04/24 00:35) Anaphylaxis levofloxacin Adverse Reaction (Intermediate, Verified 05/04/24 00:35) Headaches Home medications list reviewed: Yes Home Medications: Aspirin [Aspirin EC] 81 mg PO DAILY 04/10/22 Atorvastatin Calcium [Lipitor*] 10 mg PO DAILY 04/10/22 Carvedilol [Coreg] 6.25 mg PO BID 04/10/22 Cholecalciferol (Vitamin D3) [Vitamin D3] 1,000 unit PO DAILY 04/10/22 Clopidogrel Bisulfate [Plavix*] 75 mg PO DAILY 04/10/22 Gabapentin 300 mg PO DAILY PRN 04/10/22 Losartan Potassium [Cozaar*] 50 mg PO BID 08/20/23 Ascorbic Acid [Vitamin C] 500 mg PO DAILY 05/04/24 Hydrocodone/Acetaminophen [Hydrocodon-Acetaminophen 5-325] 1 each PO TIDP PRN 05/04/24 Naloxone HCl 4 mg NS SEECOM 05/04/24 Ondansetron HCl 4 mg PO Q8HP PRN 05/04/24 Sertraline [Zoloft] 50 mg PO DAILY 05/04/24 Sevelamer Carbonate 0.8 gm PO TIDWM 05/04/24 Vit B Comp C/Folic Acid/Vit D3 [Dialyvite 800 Plus D Wafer] 1 each PO DAILY 05/04/24 - Past Medical/Surgical History Diabetic: Yes Past Medical History: Reviewed- Non-Contributory -: HTN -: DM II with CKD & Polyneuropathy -: Metabolic Syndrome. Obesity. -: Dyslipidemia. -: Diastolic CHF -: ESRD (Dr. Retana/ Dr. Huber) MWF -: PAD -: CVD -: Obesity Past Surgical History: Reviewed- Non-Contributory -: Umbilical hernia repair x 2 -: Appendectomy -: Cystoscopy with Bladder Biopsy -: Hysteroscopy with D&C -: AVF Psychosocial/ Personal History: Patient lives at home with her daughter. - Family History Mother -: Diabetes, Kidney disease Father -: Other (see notes) Notes: Brain aneurysm - Social History Smoking Status: Never smoker Alcohol use: No CD- Drugs: No Caffeine use: Yes Review of Systems 10-point ROS is otherwise unremarkable Physical Examination - Vital Signs Temperature: 98.7 F Blood Pressure: 146/52 Pulse: 72 Respirations: 18 Pulse Ox (%): 94 - Physical Exam General: Alert, In no apparent distress, Oriented x3 HEENT: Atraumatic, Normocephalic Neck: Supple Respiratory: Diminished, Crackles/rales Cardiovascular: Regular rate/rhythm, Normal S1 S2, Edema Capillary refill: <2 Seconds Gastrointestinal: Hypoactive, Soft and benign, W/out hepatosplenomegaly Musculoskeletal: No clubbing, No contractures Integumentary: No rashes Neurological: Normal strength at 5/5 x4 extr, Cranial nerves 3-12 intact, Normal reflexes 2+ Lymphatics: No axilla or inguinal lymphadenopathy - Studies Laboratory Data (last 24 hrs) 05/03/24 05/03/24 05/03/24 20:47 20:47 20:47 WBC 4.60 Hgb 7.7 L Hct 23.5 L Plt Count 149 L PT 13.1 H INR 1.18 Sodium 137 Potassium 4.1 BUN 23 H Creatinine 4.06 H Glucose 165 H Magnesium 2.3 Total Bilirubin 0.4 AST < 10 L ALT 20 Alkaline Phosphatase 125 H Microbiology Data (last 24 hrs): 05/03/24 20:47 Nasopharnyx Influenza Type A Antigen Screen - Final 05/03/24 20:47 Nasopharnyx Influenza Type B Antigen Screen - Final Assessment and Plan - Plan Acute on chronic CHF possibly systolic/diastolic Monitor closely on telemetry Started on aggressive diuresis X-ray findings consistent with CHF Oxygen supplementation Will try to wean down oxygen requirement Continue home medications Titrate as needed Will obtain an echocardiogram Cardiology consult Hypertension Antihypertensives titrated Continue home medications and titrate as needed Hyperlipidemia Continue statin ESRD on dialysis Monitor renal parameters Electrolytes monitor and replace accordingly Nephrology consulted Diabetes Insulin sliding scale Accu-Chek before every meal and at bedtime Anemia of chronic disease Monitor H&H closely No overt bleeding at this time GI/DVT prophylaxis Advanced directive full code Discharge Plan: Home Plan to discharge in: 48 Hours - Advance Directives Does patient have a Living Will: No Does patient have a Durable POA for Healthcare: Yes - Code Status/Comfort Care Code Status: Full Code Time Spent Managing Pts Care (In Minutes): 48
[2024-05-03] MEDS ORDERED: ACETAMINOPHEN 325 MG TABLET ONE (23:38)
[2024-05-03] MEDS: ACETAMINOPHEN 325 MG TABLET PO PRN (23:40)
[2024-05-04] MEDS ORDERED: GABAPENTIN 100 MG CAP PO PRN (01:44)
[2024-05-04] MEDS ORDERED: NALOXONE HCL 4 MG NS SCH (01:45)
[2024-05-04 06:01] LABS: Absolute Eosinophils 0.2 K/uL (0-0.5); Absolute Monocytes 0.5 K/uL (0.1-1.3); Basophils % 0.8 % (0-1.3); Eosinophils % 3.9 % (0-4.4); Hemoglobin 7.2 g/dL (12.0-15.0); Lymphocytes % 21.3 % (15.3-44.8); MCH 29.9 pg (27.0-35.0); MCHC 32.9 g/dL (32.0-36.0); MCV 90.8 fL (80-100); MPV 8.5 fL (7.6-11.3); Monocytes % 11.3 % (3.3-12.3); Neutrophils % 62.7 % (41.7-73.7); Nucleated Red Blood Cells % 0.1 % (0-0); Platelets 152 thou/uL (152-406); RBC Red Blood Cell Count 2.42 M/uL (3.86-4.86); Red Cell Distribution Width 17.4 % (12.1-15.2)
[2024-05-04 06:14] LABS: Albumin 3.2 g/dL (3.4-5.0); Albumin/Globulin Ratio 1.1 (1.1-1.8); Anion Gap 10.1 mEq/L (5.0-15.0); Bilirubin Total 0.4 mg/dL (0.2-1.0); Magnesium 2.4 mg/dL (1.6-2.4); Phosphorus 3.4 mg/dL (2.5-4.9); Potassium 4.1 mEq/L (3.5-5.1); Protein, Total 6.2 g/dL (6.4-8.2)
[2024-05-04 06:16] LABS: Troponin High Sensitivity 82.4 pg/mL (<58.9)
[2024-05-04] MEDS ORDERED: EPOETIN 4,000 UNIT/ML VIAL IV SCH (08:00)
[2024-05-04 08:07] LABS: Percent Reticulocyte Count 2.5 % (0.4-2.05); RBC Red Blood Cell Count 2.44 M/uL (3.86-4.86)
[2024-05-04 08:17] LABS: Ferritin 287.5 ng/mL (8-252)
[2024-05-04] MEDS: ATORVASTATIN 10 MG TAB PO SCH (08:53)
[2024-05-04] MEDS: ASCORBIC ACID 500 MG TABLET PO SCH (08:54)
[2024-05-04] MEDS: CLOPIDOGREL 75 MG TABLET PO SCH (08:54)
[2024-05-04] MEDS: VITAMIN D 1000 UNIT TAB PO SCH (08:54)
[2024-05-04] MEDS: LOSARTAN POTASSIUM 50 MG TABLET PO SCH (08:54)
[2024-05-04] MEDS: ASPIRIN EC 81 MG TAB PO SCH (08:54)
[2024-05-04] MEDS: HEPARIN 5000 UNIT/ML 1 ML VIAL SQ SCH (08:55)
[2024-05-04] MEDS: carvediloL 3.125 MG TAB PO SCH (09:00)
[2024-05-04] MEDS ORDERED: EPOETIN ALFA 10,000 UNIT/ML VIAL IV SCH (10:15)
[2024-05-04] MEDS: FUROSEMIDE 40 MG/4 ML VIAL IV ONE (10:15)
--- NOTE | 2024-05-04 11:23 | P.CNS ---
Date of Consult: 05/04/24 Reason for Consult: ESRD, dyspnea, acute on chronic anemia Requesting Physician: Rommel Garsia Chief Complaint: SOB History of Present Illness: 69-year-old female with history of ESRD on HD MWF at [facility] with last HD on Fri, chronic diabetes mellitus type 2, hypertension, PAD, prior CVA and who had been doing well over the past many mo but reports increased weakness, dyspnea last week and initially attributed it to fluid overload but reports extra treatment last Sat and left at [facility] yesterday but still felt weak, and on Sat felt pre-syncopal. She cites malaise. She acknowledges dark stools but was attributing to her binder. She denies abd pain, last scopes she reports were 4 years ago. Allergies Penicillins Allergy (Severe, Verified 05/04/24 00:35) Anaphylaxis amoxicillin Adverse Reaction (Severe, Verified 05/04/24 00:35) Anaphylaxis levofloxacin Adverse Reaction (Intermediate, Verified 05/04/24 00:35) Headaches Home Medications: Aspirin [Aspirin EC] 81 mg PO DAILY 04/10/22 Atorvastatin Calcium [Lipitor*] 10 mg PO DAILY 04/10/22 Carvedilol [Coreg] 6.25 mg PO BID 04/10/22 Cholecalciferol (Vitamin D3) [Vitamin D3] 1,000 unit PO DAILY 04/10/22 Clopidogrel Bisulfate [Plavix*] 75 mg PO DAILY 04/10/22 Gabapentin 300 mg PO DAILY PRN 04/10/22 Losartan Potassium [Cozaar*] 50 mg PO BID 08/20/23 Ascorbic Acid [Vitamin C] 500 mg PO DAILY 05/04/24 Hydrocodone/Acetaminophen [Hydrocodon-Acetaminophen 5-325] 1 each PO TIDP PRN 05/04/24 Naloxone HCl 4 mg NS SEECOM 05/04/24 Ondansetron HCl 4 mg PO Q8HP PRN 05/04/24 Sertraline [Zoloft] 50 mg PO DAILY 05/04/24 Sevelamer Carbonate 0.8 gm PO TIDWM 05/04/24 Vit B Comp C/Folic Acid/Vit D3 [Dialyvite 800 Plus D Wafer] 1 each PO DAILY 05/04/24 - Past Medical/Surgical History Diabetic: Yes -: HTN -: DM II with CKD & Polyneuropathy -: Metabolic Syndrome. Obesity. -: Dyslipidemia. -: Diastolic CHF -: ESRD (Dr. Retana/ Dr. Huber) MWF -: PAD -: CVD -: Obesity -: Umbilical hernia repair x 2 -: Appendectomy -: Cystoscopy with Bladder Biopsy -: Hysteroscopy with D&C -: AVF Psychosocial/ Personal History: Patient lives at home with her daughter. - Family History Mother Medical History: Diabetes, Kidney disease Father Medical History: Other (see notes) Notes: Brain aneurysm - Social History Alcohol use: No CD- Drugs: No Caffeine use: Yes Place of Residence: Home Review of Systems General: Weakness, Malaise Eyes: Unremarkable ENT: Unremarkable Respiratory: Shortness of Breath Cardiovascular: Light Headedness, As per HPI Gastrointestinal: As per HPI Genitourinary: Unremarkable Musculoskeletal: Unremarkable Integumentary: Unremarkable Neurological: Weakness, As per HPI Physical Examination Temp Pulse Resp BP Pulse Ox 98.7 F 72 18 146/52 H 94 05/04/24 05:39 05/04/24 05:39 05/04/24 05:39 05/04/24 05:39 05/04/24 05:39 General: In no apparent distress, Cooperative, Other (Appears chronically ill) HEENT: Atraumatic, Normocephalic Neck: Supple Respiratory: Normal air movement, Other (mildly diminshed at bases) Cardiovascular: Regular rate/rhythm, Edema, Systolic murmur Gastrointestinal: Soft and benign, Non-distended, No tenderness Musculoskeletal: Other Integumentary: Other (Stasis dermatitis) Neurological: Normal speech, Normal tone Laboratory Data (last 24 hrs) 05/03/24 05/03/24 05/03/24 20:47 20:47 20:47 WBC 4.60 Hgb 7.7 L Hct 23.5 L Plt Count 149 L PT 13.1 H INR 1.18 Sodium 137 Potassium 4.1 BUN 23 H Creatinine 4.06 H Glucose 165 H Magnesium 2.3 Total Bilirubin 0.4 AST < 10 L ALT 20 Alkaline Phosphatase 125 H Conclusions/Impression: A/P) -ESRD 2nd to chronic conditions. HD performed yesterday, SEQ/UF today -Labile BP, chronic HTN with CKD -monitor BP closely, cont coreg and Losartan -Dyspnea, multifactorial and while she has underlying chronic diastolic CHF with impressive BNP, likely worsened anemia accounts for more of the change in symptoms -Acute on chronic anemia 2nd to CKD with possibility of GI bleeding on DAPT - FOBT not avail here, will transfuse 1 unit PRBC for Hb < 8 in cardiac pt, will assess SAVANNA/IV iron dosing at OP unit and will refer to GI as OP. Will have to hold Plavix for now if GI bleeding suspected. Pankaj Huber MD, [facility]
--- NOTE | 2024-05-04 13:32 | P.PN ---
Subjective Date of Service: 05/04/24 Chief Complaint: SOB Physical Examination - Vital Signs Temperature: 98.3 F Blood Pressure: 118/79 Pulse: 72 Respirations: 15 Pulse Ox (%): 97 - Studies Laboratory Data (last 24 hrs) 05/03/24 05/03/24 05/03/24 20:47 20:47 20:47 WBC 4.60 Hgb 7.7 L Hct 23.5 L Plt Count 149 L PT 13.1 H INR 1.18 Sodium 137 Potassium 4.1 BUN 23 H Creatinine 4.06 H Glucose 165 H Magnesium 2.3 Total Bilirubin 0.4 AST < 10 L ALT 20 Alkaline Phosphatase 125 H Microbiology Data (last 24 hrs): 05/03/24 20:47 Nasopharnyx Influenza Type A Antigen Screen - Final 05/03/24 20:47 Nasopharnyx Influenza Type B Antigen Screen - Final Assessment And Plan - Plan 69 yrs old Female with past medical history of diabetes, hypertension, hyperlipidemia, diastolic heart failure, old CVA, peripheral artery disease, ESRD on dialysis Friday, presents to ER with shortness of breath and generalized weakness For the last 2 to 3 days. #1 symptomatic severe anemia With hemoglobin 7.2, iron study reviewed serum ferritin less than 500, saturation less than 20%, reticulocyte index less than 2, suggestive of hypo proliferative anemia likely due to CKD, patient also complaining of dark stool, unable to obtain fecal occult blood due to unavailability of the test at the facility, no clinical bleeding, I agree with nephrology to transfuse 1 unit of packed RBC during hemodialysis, I will initiate erythropoietin stimulating agent with IV iron, discontinue Plavix, #2 ESRD on hemodialysis Chest x-ray shows minimal bilateral pleural effusion and stable mild pulmonary edema, patient does not need any urgent hemodialysis, will continue hemodialysis as scheduled I will hold any anticoagulant for #1
[2024-05-04 14:25] LABS: Hepatitis B surface AG Interp. Nonreactive (Nonreactive)
[2024-05-04 14:26] LABS: HBsAG Nonreactive Report Report
[2024-05-04] MEDS: NA CHLORIDE 0.9% 250 ML ONE (15:51)
[2024-05-04] MEDS: HYDROCODONE/APAP 5/325 MG TAB PO PRN (18:48)
[2024-05-04 20:21] LABS: Hematocrit 25.9 % (36.0-45.0); Hemoglobin 8.3 g/dL (12.0-15.0)
[2024-05-05] MEDS: ACETAMIN/CAFFEINE/BUTALB TAB PO PRN (00:35)
[2024-05-05] MEDS: ONDANSETRON 4 MG/2 ML VIAL IV PRN (08:32)
[2024-05-05] MEDS: SOD FERRIC GLUC COMPLX/SUCROSE 250 MG in NA CHLORIDE 0.9% 250 ML IV SCH (08:35)
[2024-05-05] MEDS: SUMATRIPTAN SUCCI 50 MG TAB PO PRN (09:24)
--- NOTE | 2024-05-05 11:18 | P.PN ---
(S) Pt still reporting fatigue, malaise, LAYNE, dyspnea, reports got SOB with showering this AM. Received 1 unit PRBC and brief SEQ/UF alone dialysis yesterday, getting IV iron when seen (O) vitals reviewed in the EMR General: In mild distress, Cooperative, Other (Appears chronically ill) HEENT: Atraumatic, Normocephalic, LFNC Neck: Supple Respiratory: Normal air movement, Other (mildly diminshed at bases) Cardiovascular: Regular rate/rhythm, chronic non pitting Edema, Systolic murmur Gastrointestinal: Soft and benign, Non-distended, No tenderness Musculoskeletal: Other Integumentary: Other (Stasis dermatitis) Neurological: Normal speech, Normal tone Laboratory Data (last 24 hrs) Reviewed in the EMR Conclusions/Impression: A/P) -ESRD 2nd to chronic conditions. HD performed Mon as OP, SEQ/UF yesterday, regular HD today -Labile BP, chronic HTN with CKD -monitor BP closely, cont coreg and Losartan -Dyspnea, multifactorial and while she has underlying chronic diastolic CHF with impressive BNP, likely worsened anemia accounted for more of the change in symptoms. Will repeat UF on HD today as pt still reporting sig dyspnea although non hypoxic -Acute on chronic anemia 2nd to CKD with possibility of GI bleeding on DAPT - FOBT not avail here, did transfuse 1 unit PRBC for Hb < 8 in cardiac pt, will assess SAVANNA/IV iron dosing at OP unit (T sat > 20 but < 30%, IV iron doses ordered by IM) and will refer to GI as OP. Will have to hold Plavix for now if GI bleeding suspected. Pankaj Huber MD, [facility]
[2024-05-05] MEDS: SEVELAMER CARBONATE 0.8 GM PACKET PO SCH (12:00)
--- NOTE | 2024-05-05 13:45 | P.PN ---
Subjective Date of Service: 05/05/24 Chief Complaint: SOB Subjective: Worsening She is complaining of a severe head ache after transfusion last night, denied any nausea and vomiting, blurry vision or neurologic deficit, her hemoglobin went up to 8.3 from 7.3 afterward. Patient denied any clinical bleeding such as melena or hematochezia or gross hematuria Review of Systems Other: Consitutional; fever(-), chills (-), rigor(-), night sweat(-), unintentional weight loss(-), generalized weakness(+) HEENT; diplopia (-), rhinorrhea (-), epistaxis (-), otorrhea (-), otalgia (-) Respiratory; shortness of breath (+), wheezing (-), cough (-), sputum (-), pleuritic chest pain (-) Cardiovascular; chest pain (-), peripheral edema (-), paroxysmal nocturnal dyspnea (-), orthopnea (-) Gastrointestinal; nausea (-), vomiting (-), abdominal pain (-), diarrhea (-), constipation (-), melena (-), hematochezia (-) Urinary; urinary frequency (-), dysuria (-), urgency (-), flank pain (-), gross hematuria (-), incontinence (-) Skin; rash (-), pruritus (-) 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 General: Chronic ill- looking, fragile, in no apparent distress,. HEENT: Normocephalic, atraumatic, nonicteric sclera, nonanemic conjunctive. Neck: Supple, without JVD or goiter or thyroid mass. Respiratory: Normal breathing effort, clear to auscultation bilaterally, no crackles no wheezing or rhonchi. Cardiovascular: Regular rate and rhythm, S1, S2 normal, no murmur no gallop. Gastrointestinal: Normal bowel sounds, nondistended, nontender, No ascites, , No masses, no hepatosplenomegaly. Extremities l: No clubbing, No peripheral edema, full range of motion, no deformity, no muscle atrophy. Integumentary: No rashes, petechia, suspected lesions. Lymphatics: No axilla or cervical lymphadenopathy. Neurology; alert awake oriented x3, no focal neurologic deficit, normal affection . mood and behavior. Assessment And Plan - Plan 69 yrs old Female with past medical history of diabetes, hypertension, hyperlipidemia, diastolic heart failure, old CVA, peripheral artery disease, ESRD on dialysis Friday, presents to ER with shortness of breath and generalized weakness For the last 2 to 3 days. #1 symptomatic severe anemia Hemoglobin up to 8.3 from 7.3 after 1 unit transfusion, adequate response iron study reviewed serum ferritin less than 500, saturation less than 20%, reticulocyte index less than 2, suggestive of hypoproliferative anemia likely due to CKD, patient also complaining of dark stool, unable to obtain fecal occult blood due to unavailability of the test at the facility, no clinical bleeding, I started erythropoietin stimulating agent with IV iron, but nephrology discontinued erythropoietin stimulating agent. Plavix on hold #2 ESRD on hemodialysis Chest x-ray showed minimal bilateral pleural effusion and stable mild pulmonary edema, she is scheduled for hemodialysis today #3 severe headache Likely due to transfusion, will try [place] and sumatriptan I will hold any anticoagulant for #1
[2024-05-05] MEDS: NA CHLORIDE 0.9% 250 ML IV SCH (21:04)
[2024-05-06] MEDS: MULTIVITAMINS,THERAPEUT 1 TAB PO SCH (08:29)
[2024-05-06] MEDS: SERTRALINE HCL 50 MG TAB PO SCH (08:30)
[2024-05-06] MEDS: SUMATRIPTAN SUCCI 50 MG TAB PO PRN (11:12)
--- NOTE | 2024-05-06 15:28 | P.PN ---
Subjective Date of Service: 05/06/24 Chief Complaint: SOB Subjective: No new changes She continues complain of general weakness, headache, too weak to walk and poor oral intake, denied any melena or hematochezia or gross hematuria. Her dialysis was interrupted due to AV fistula pain yesterday. Review of Systems Other: Consitutional; fever(-), chills (-), rigor(-), night sweat(-), unintentional weight loss(-) HEENT; diplopia (-), rhinorrhea (-), epistaxis (-), otorrhea (-), otalgia (-) Respiratory; shortness of breath (+), wheezing (-), cough (-), sputum (-), pleuritic chest pain (-) Cardiovascular; chest pain (-), peripheral edema (-), paroxysmal nocturnal dyspnea (-), orthopnea (-) Gastrointestinal; nausea (-), vomiting (-), abdominal pain (-), diarrhea (-), constipation (-), melena (-), hematochezia (-) Urinary; urinary frequency (-), dysuria (-), urgency (-), flank pain (-), gross hematuria (-), incontinence (-) Skin; rash (-), pruritus (-) 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 General: Chronic ill- looking, fragile, in no apparent distress,. HEENT: Normocephalic, atraumatic, nonicteric sclera, nonanemic conjunctive. Neck: Supple, without JVD or goiter or thyroid mass. Respiratory: Normal breathing effort, clear to auscultation bilaterally, no crackles no wheezing or rhonchi. Cardiovascular: Regular rate and rhythm, S1, S2 normal, no murmur no gallop. Gastrointestinal: Normal bowel sounds, nondistended, nontender, No ascites, , No masses, no hepatosplenomegaly. Extremities l: No clubbing, No peripheral edema, full range of motion, no deformity, no muscle atrophy, AV fistula on the left forearm with good bruit and thrills. Integumentary: No rashes, petechia, suspected lesions. Lymphatics: No axilla or cervical lymphadenopathy. Neurology; alert awake oriented x3, no focal neurologic deficit, normal affection . mood and behavior. Assessment And Plan - Plan 69 yrs old Female with past medical history of diabetes, hypertension, hyperlipidemia, diastolic heart failure, old CVA, peripheral artery disease, ESRD on dialysis Friday, presents to ER with shortness of breath and generalized weakness For the last 2 to 3 days. #1 symptomatic severe anemia with relative iron deficiency Hemoglobin today is 9.1, received 1 unit transfusion for 7.2, iron study reviewed serum ferritin less than 500, saturation less than 20%, reticulocyte index less than 2, suggestive of hypoproliferative anemia likely due to CKD, patient also complaining of dark stool, unable to obtain fecal occult blood due to unavailability of the test at the facility, no clinical bleeding, I ordered erythropoietin stimulating agent with IV iron, but nephrology discontinued erythropoietin stimulating agent saying that they will evaluate the patient for SAVANNA at outpatient. Plavix on hold #2 ESRD on hemodialysis Chest x-ray showed minimal bilateral pleural effusion and stable mild pulmonary edema, she is scheduled for hemodialysis today #3 tension headache or migraine, related to #1 will try [place] and sumatriptan #4 history of hypertension Her hypertensive regimen on hold for borderline blood pressure, I will hold any anticoagulant for #1 Plan to discharge home in a few days
--- NOTE | 2024-05-06 21:05 | P.PN ---
Date of Service: 05/06/24 Vital Signs Temp Pulse Resp BP Pulse Ox 97.3 F 71 17 147/58 H 98 05/06/24 20:00 05/06/24 20:00 05/06/24 20:00 05/06/24 20:00 05/06/24 20:00 Medications Acetaminophen (Acetaminophen 325 Mg Tablet) 650 mg PO Q4HP PRN PRN Reason: Pain scale 2-4 (Mild) Last Admin: 05/04/24 08:54 Dose: 650 mg Acetaminophen/Butalbital/Caffeine (Acetamin/Caffeine/Butalb Tab) 2 tab PO Q4H PRN PRN Reason: Pain scale 8-10 (Severe) Last Admin: 05/06/24 05:35 Dose: 2 tab Hydrocodone Bitart/Acetaminophen (Hydrocodone/Apap 7.5/325 Mg Tab) 1 tab PO Q4H PRN PRN Reason: Pain scale 8-10 (Severe) Albuterol Sulfate (Albuterol 2.5 Mg/3 Ml Neb Audrey) 2.5 mg NEB Q6HP PRN PRN Reason: SHORTNESS OF BREATH Ascorbic Acid (Ascorbic Acid 500 Mg Tablet) 500 mg PO DAILY [facility] Last Admin: 05/06/24 08:30 Dose: 500 mg Aspirin (Aspirin Ec 81 Mg Tab) 81 mg PO DAILY [facility] Last Admin: 05/06/24 08:30 Dose: 81 mg Atorvastatin Calcium (Atorvastatin 10 Mg Tab) 10 mg PO DAILY [facility] Last Admin: 05/06/24 08:30 Dose: 10 mg Carvedilol (Carvedilol 3.125 Mg Tab) 6.25 mg PO BID [facility] Last Admin: 05/06/24 20:18 Dose: 6.25 mg Cholecalciferol (Vitamin D 1000 Unit Tab) 1,000 unit PO DAILY [facility] Last Admin: 05/06/24 08:30 Dose: 1,000 unit Gabapentin (Gabapentin 100 Mg Cap) 300 mg PO DAILY PRN PRN Reason: neuropathy Home Med (Naloxone Hcl [Naloxone Hcl]) 4 mg NS SEECOM [facility] Ferric Sodium Gluconate Complex 250 mg/ Sodium Chloride 270 mls @ 135 mls/hr IV DAILY [facility] Stop: 05/08/24 09:01 Last Admin: 05/06/24 08:31 Dose: 270 mls Sodium Chloride (Sodium Chloride) 250 mls @ 0 mls/hr IV .Q0M [facility] Last Admin: 05/05/24 21:04 Dose: 250 mls Ipratropium [place] (Ipratropium Brom 0.5mg/2.5ml) 0.5 mg NEB [id number] PRN PRN Reason: SHORTNESS OF BREATH Losartan Potassium (Losartan Potassium 50 Mg Tablet) 50 mg PO BID [facility] Last Admin: 05/06/24 20:18 Dose: 50 mg Ondansetron HCl (Ondansetron 4 Mg/2 Ml Vial) 4 mg IV Q6HP PRN PRN Reason: NAUSEA / VOMITING Last Admin: 05/06/24 17:01 Dose: 4 mg Ondansetron HCl (Ondansetron 4 Mg (Odt) Tab) 4 mg PO Q8HP PRN PRN Reason: nausea and vomiting Sertraline HCl (Sertraline Hcl 50 Mg Tab) 50 mg PO DAILY [facility] Last Admin: 05/06/24 08:30 Dose: 50 mg Sevelamer Carbonate (Sevelamer Carbonate 0.8 Gm Packet) 0.8 gm PO TIDWM [facility] Last Admin: 05/06/24 16:02 Dose: 0.8 gm Sumatriptan Succinate (Sumatriptan Succi 50 Mg Tab) 50 mg PO Q2HP PRN PRN Reason: Migraine Last Admin: 05/06/24 20:46 Dose: 50 mg Vitamin B Complex/Vit C/Folic Acid (Multivitamins,Therapeut 1 Tab) 1 tab PO DAILY [facility] Last Admin: 05/06/24 08:29 Dose: 1 tab Microbiology Results 05/03/24 20:47 Nasopharnyx Influenza Type A Antigen Screen - Final 05/03/24 20:47 Nasopharnyx Influenza Type B Antigen Screen - Final Assessment/ Plan: Nephrology No dyspnea No chest pain Headache Weakness No acute events overnight Vitals, medications, blood work and imaging reviewed in the chart NAD. MMM. NCAT. Normal Respiratory Effort. S1S2. ND Abd. No C/C. LE Edema trace. No rash. AAO. Normal speech. ESRD on HD MWF -HD TIW HTN with CKD/ CHF -Continue Coreg & Losartan Diastolic CHF, A/C -Low sodium diet -HD with UF DM II with CKD, Polyneuropathy & Peripheral Angiopathy -Continue Gabapentin -RISS prn Anemia in CKD Iron Deficiency -Retacrit prn -Continue IV iron CKD MBD -Continue Renvela Hospitalist note reviewed
[2024-05-07] MEDS ORDERED: EPOETIN ALFA 10,000 UNIT/ML VIAL IV SCH (10:00)
--- NOTE | 2024-05-07 10:32 | P.PN ---
(S) Pt still reporting fatigue, malaise, seen on HD, vitals stable, lowered UF goal. Not needing O2. (O) vitals reviewed in the EMR General: In mild distress, Cooperative, Other (Appears chronically ill) HEENT: Atraumatic, Normocephalic, off LFNC Neck: Supple Respiratory: Normal air movement, Other (mildly diminshed at bases) Cardiovascular: Regular rate/rhythm, chronic mild non pitting Edema, Systolic murmur Gastrointestinal: Soft and benign, Non-distended, No tenderness Musculoskeletal: Other Integumentary: Other (Stasis dermatitis) Neurological: Normal speech, Normal tone Laboratory Data (last 24 hrs) Reviewed in the EMR Conclusions/Impression: A/P) -ESRD 2nd to chronic conditions. HD performed Mon as OP, SEQ/UF yesterday performed , regular HD performed Fri and today, see orders for details -Labile BP, chronic HTN with CKD -BP lower at times during admission, f/u post HD BP, UF goal lowered, ARB dose lowered, held this AM -Dyspnea, multifactorial and while she has underlying chronic diastolic CHF with impressive BNP, likely worsened anemia accounted for more of the change in symptoms. Will repeat gentle UF on HD today as pt still reporting dyspnea although non hypoxic, will repeat CXR Troponin elevated/leak on admission but flat trend -Acute on chronic anemia 2nd to CKD with possibility of GI bleeding on DAPT - FOBT not avail here, did transfuse 1 unit PRBC for Hb < 8 in cardiac pt, will assess SAVANNA/IV iron dosing (already ordered) at OP unit (T sat > 20 but < 30%, s/p IV iron doses ordered by IM, will dose Retacrit 10,000 units IV on HD today) and will refer to GI as OP. Will have to hold Plavix for now if GI bleeding suspected. Pankaj Huber MD, [facility]
--- NOTE | 2024-05-07 13:22 | P.PN ---
Subjective Date of Service: 05/07/24 Chief Complaint: SOB Subjective: No new changes Telemetry review overnight shows suspected second-degree AV block with Mobitz type II with bradycardia as low as 30s, patient developed bradycardia open nausea this morning but no dizziness no presyncopal or syncopal attack. Her headache improved with the sumatriptan but that she is having nausea and feeling tired again.. Review of Systems Other: Consitutional; fever(-), chills (-), rigor(-), night sweat(-), unintentional weight loss(-), malaise (+) HEENT; diplopia (-), rhinorrhea (-), epistaxis (-), otorrhea (-), otalgia (-) Respiratory; shortness of breath (-), wheezing (-), cough (-), sputum (-), pleuritic chest pain (-) Cardiovascular; chest pain (-), peripheral edema (-), paroxysmal nocturnal dyspnea (-), orthopnea (-) Gastrointestinal; nausea (+), vomiting (-), abdominal pain (-), diarrhea (-), constipation (-), melena (-), hematochezia (-) Urinary; urinary frequency (-), dysuria (-), urgency (-), flank pain (-), gross hematuria (-), incontinence (-) Skin; rash (-), pruritus (-) 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 General: Chronic ill- looking, fragile, in no apparent distress,. HEENT: Normocephalic, atraumatic, nonicteric sclera, nonanemic conjunctive. Neck: Supple, without JVD or goiter or thyroid mass. Respiratory: Normal breathing effort, clear to auscultation bilaterally, no crackles no wheezing or rhonchi. Cardiovascular: Regular rate and rhythm, S1, S2 normal, no murmur no gallop. Gastrointestinal: Normal bowel sounds, nondistended, nontender, No ascites, , No masses, no hepatosplenomegaly. Extremities l: No clubbing, No peripheral edema, full range of motion, no deformity, no muscle atrophy, AV fistula on the left forearm with good bruit and thrills. Integumentary: No rashes, petechia, suspected lesions. Lymphatics: No axilla or cervical lymphadenopathy. Neurology; alert awake oriented x3, no focal neurologic deficit, normal affection . mood and behavior. Assessment And Plan - Plan 69 yrs old Female with past medical history of diabetes, hypertension, hyperlipidemia, diastolic heart failure, old CVA, peripheral artery disease, ESRD on dialysis Friday, presents to ER with shortness of breath and generalized weakness For the last 2 to 3 days. #1 symptomatic severe anemia with relative iron deficiency Hemoglobin is 9.1, after she received 1 unit transfusion for 7.2, iron study reviewed serum ferritin less than 500, saturation less than 20%, reticulocyte index less than 2, suggestive of hypoproliferative anemia likely due to CKD, patient also complaining of dark stool, unable to obtain fecal occult blood due to unavailability of the test at the facility, no clinical bleeding, I ordered erythropoietin stimulating agent with IV iron, but nephrology discontinued erythropoietin stimulating agent saying that they will evaluate the patient for SAVANNA at outpatient. Plavix on hold, outpatient EGD/colonoscopy may be indicated #2 ESRD on hemodialysis Chest x-ray showed minimal bilateral pleural effusion and stable mild pulmonary edema, she is scheduled for hemodialysis today #3 tension headache or migraine, related to #1 will continue [place] and sumatriptan #4 suspected second-degree Mobitz type II heart block on telemetry I stopped her carvedilol, request cardiology consult, spoke to Dr. Dickinson #4 history of hypertension Will continue losartan on holding her parameter I will hold any anticoagulant for #1 Plan to discharge home in a few days
--- NOTE | 2024-05-07 14:35 | RAD REPORT ---
Procedure: Chest Single View HISTORY: Cough COMPARISON: May 03, 2024 FINDINGS: Mild bilateral pulmonary opacities appear resolved. No significant pleural effusion noted. The heart remains enlarged. IMPRESSION: Resolution of pulmonary edema
[2024-05-07] MEDS ORDERED: LOSARTAN POTASSIUM 50 MG TABLET PO SCH (21:00)
--- NOTE | 2024-05-07 22:03 | CON ---
Date of Consultation: 05/07/2024 Reason For Consultation: Heart block and bradycardia. History Of Present Illness: A 69-year-old female with history of diabetes, hypertension, dyslipidemi a, CHF, end-stage renal disease, on hemodialysis, presented to the emergency room because of a shortn ess of breath, generalized weakness, feeling dizzy, and she said she has been having syncopal episode s. Even sometimes while she was sitting, she will pass out. reported heart block second degree, AV block type 2. I reviewed it myself. I saw by bedside. Denies having any chest pain. [place] does have cardiac surgeon at [facility] who does a periodic cardiac check. No active chest pain. Past Medical History: As outlined above in the HPI. Medications: Refer reconciliation sheet for detailed list. Allergies: PENICILLINS AND LEVOFLOXACIN. Family History: No premature coronary artery disease or cancer. Social History: Does not smoke or drink. Does not use any drugs. Past Surgical History: Umbilical hernia surgery, appendectomy, AV fistula. Review of Systems: All systems reviewed and they are negative except as mentioned in HPI. Physical Examination: Vital Signs: Reviewed. Head and Neck: Pupils are equal, reactive to light. Intact eye movements. No cervical lymphadenopa thy. Neck is supple. Thyroid is not enlarged. Lungs: Decreased breathing sounds bilaterally. No accessory muscle use or muscle retraction. Heart: Regular rate and rhythm. No extra sounds. Abdomen: Soft, nontender. Bowel sounds positive. No organomegaly. No masses or hernia. No rigidi ty or rebound. Extremities: No clubbing, cyanosis. Intact pulses. Skin: No rash. Neurologic: Alert, awake, oriented x3. No acute focal deficits appreciated. lymph Nodes: No cervical or axillary lymphadenopathy. Investigations: BUN is 27, creatinine 4.5. Troponins are 82 and 84. Chest x-ray: Resolution of pu lmonary edema. Assessment/recommendation: 1.Shortness of breath is due to heart failure or fluid retention that was corrected with dialysis. At this point, she has an aortic systolic ejection murmur and I recommend to obtain an echo to evalua te for aortic valve stenosis and to evaluate the cardiac function. Please obtain an echocardiogram. 2.Second-degree atrioventricular block Mobitz type 2 with history of syncope. This patient will nee d a pacemaker implantation. I will discuss this further with her primary cardiac surgeon upon discharge . She can proceed with that on an outpatient basis. 3.Hypertension. Blood pressure is controlled. 4.End-stage renal disease, on hemodialysis. SR/MODL Voice ID: [id number] Report ID: [id number]
[2024-05-08] MEDS: HYDROCODONE/APAP 7.5/325 MG TAB PO PRN (04:38)
[2024-05-08 04:43] VITALS: BMI 36.6
[2024-05-08 06:35] LABS: Anion Gap 8.8 mEq/L (5.0-15.0); Potassium 4.8 mEq/L (3.5-5.1)
--- NOTE | 2024-05-08 10:38 | P.PN ---
Subjective Date of Service: 05/08/24 Chief Complaint: SOB Subjective: No new changes Telemetry overnight reviewed, no more AV block after carvedilol was discontinued. Patient continued to complain of generalized weakness poor oral intake shortness of breath. Denied any melena or hematochezia, patient had a hemodialysis yesterday and 1 L of fluid removed. Review of Systems Other: Consitutional; fever(-), chills (-), rigor(-), night sweat(-), unintentional weight loss(-) HEENT; diplopia (-), rhinorrhea (-), epistaxis (-), otorrhea (-), otalgia (-) Respiratory; shortness of breath (+), wheezing (-), cough (-), sputum (-), pleuritic chest pain (-) Cardiovascular; chest pain (-), peripheral edema (-), paroxysmal nocturnal dyspnea (-), orthopnea (-) Gastrointestinal; nausea (-), vomiting (-), abdominal pain (-), diarrhea (-), constipation (-), melena (-), hematochezia (-) Urinary; urinary frequency (-), dysuria (-), urgency (-), flank pain (-), gross hematuria (-), incontinence (-) Skin; rash (-), pruritus (-) 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 General: Chronic ill- looking, fragile, in no apparent distress,. HEENT: Normocephalic, atraumatic, nonicteric sclera, anemic conjunctive. Neck: Supple, without JVD or goiter or thyroid mass. Respiratory: Normal breathing effort, clear to auscultation bilaterally, no crackles no wheezing or rhonchi. Cardiovascular: Regular rate and rhythm, S1, S2 normal, ejection systolic murmur at aortic valve but no gallop. Gastrointestinal: Normal bowel sounds, nondistended, nontender, No ascites, , No masses, no hepatosplenomegaly. Extremities l: No clubbing, No peripheral edema, full range of motion, no deformity, no muscle atrophy, AV fistula on the left forearm with good bruit and thrills. Integumentary: No rashes, petechia, suspected lesions. Lymphatics: No axilla or cervical lymphadenopathy. Neurology; alert awake oriented x3, no focal neurologic deficit, normal affection . mood and behavior. Assessment And Plan - Plan 69 yrs old Female with past medical history of diabetes, hypertension, hyperlipidemia, diastolic heart failure, old CVA, peripheral artery disease, ESRD on dialysis Friday, presents to ER with shortness of breath and generalized weakness For the last 2 to 3 days. #1 symptomatic severe anemia with relative iron deficiency Hemoglobin is 9.1, after she received 1 unit transfusion for 7.2, I will order repeat CBC tomorrow morning iron study reviewed serum ferritin less than 500, saturation less than 20%, reticulocyte index less than 2, suggestive of hypoproliferative anemia likely due to CKD, patient also complaining of dark stool, unable to obtain fecal occult blood due to unavailability of the test at the facility, no clinical bleeding, I ordered erythropoietin stimulating agent with IV iron, but nephrology discontinued erythropoietin stimulating agent saying that they will evaluate the patient for SAVANNA at outpatient. Plavix on hold, outpatient EGD/colonoscopy may be indicated #2 ESRD on hemodialysis Chest x-ray showed minimal bilateral pleural effusion and stable mild pulmonary edema, continue to inpatient hemodialysis scheduled. #3 tension headache or migraine, related to #1 will continue [place] and sumatriptan #4 symptomatic second-degree Mobitz type II heart block Carvedilol discontinued, cardiology note appreciated, patient is indicated for pacemaker placement #5 known aortic stenosis Transthoracic echocardiogram in August 2023 reviewed, moderate to severe AAS, normal left ventricular ejection fraction, cardiology ordered a repeat transthoracic echo echocardiogram #4 history of hypertension Blood pressure is reasonably controlled on losartan . Will continue losartan on holding her parameter I will hold any anticoagulant for #1 Plan to discharge home in a few days
[2024-05-08] MEDS: HYDRALAZINE HCL 20 MG/ML VIAL IV PRN (12:49)
--- NOTE | 2024-05-08 14:56 | P.PN ---
(S) Pt still reporting fatigue, dyspnea even though CXR showed resolution of pulm edema, other. Labile pressures. Cardiology note and IM note reviewed (O) vitals reviewed in the EMR General: In mild distress, Cooperative, Other (Appears chronically ill) HEENT: Atraumatic, Normocephalic, off LFNC Neck: Supple Respiratory: Normal air movement, Other (mildly diminshed at bases) Cardiovascular: Non tachy, chronic mild non pitting Edema, Systolic murmur Gastrointestinal: Soft and benign, Non-distended, No tenderness Musculoskeletal: Other Integumentary: Other (Stasis dermatitis) Neurological: Normal speech, Normal tone Laboratory Data (last 24 hrs) Reviewed in the EMR Conclusions/Impression: A/P) -ESRD 2nd to chronic conditions. HD performed Mon as OP, SEQ/UF yesterday performed , regular HD performed Fri and Fri, see orders for details Stable metab profile -Labile BP, chronic HTN with CKD -BP lower at times during admission, UF goal lowered on HD yesterday, ARB dose lowered -Dyspnea, multifactorial and while she has underlying chronic diastolic CHF with impressive BNP, likely worsened anemia accounted for more of the change in symptoms. Repeat CXR showed resolution of pulm edema Troponin elevated/leak on admission but flat trend. Mobitz Type II block per cardiology may account for some of her symptoms, reccs noted, Coreg stopped -Acute on chronic anemia 2nd to CKD with possibility of GI bleeding on DAPT - FOBT not avail here, did transfuse 1 unit PRBC for Hb < 8 in cardiac pt, will assess SAVANNA/IV iron dosing (already ordered) at OP unit (T sat > 20 but < 30%, s/p IV iron doses ordered by IM, did yesterday dose Retacrit 10,000 units IV on HD today) and will refer to GI as OP. Pankaj Huber MD, [facility]
[2024-05-08] MEDS: LOSARTAN POTASSIUM 50 MG TABLET PO SCH (20:33)
[2024-05-09 04:22] LABS: Hematocrit 27.2 % (36.0-45.0); Hemoglobin 8.8 g/dL (12.0-15.0); MCH 29.3 pg (27.0-35.0); MCHC 32.4 g/dL (32.0-36.0); MCV 90.2 fL (80-100); Platelets 161 thou/uL (152-406); RBC Red Blood Cell Count 3.01 M/uL (3.86-4.86); Red Cell Distribution Width 20.9 % (12.1-15.2)
--- NOTE | 2024-05-09 10:08 | P.PN ---
Subjective Date of Service: 05/09/24 Chief Complaint: SOB Subjective: No new changes AV block on telemetry after discontinuation of carvedilol, patient continued to complain of generalized weakness, headache requiring pain medication, denied any syncope or chest pain. She wants to transfer to [facility] if she needs any heart surgery. Review of Systems Other: Consitutional; fever(-), chills (-), rigor(-), night sweat(-), unintentional weight loss(-) HEENT; diplopia (-), rhinorrhea (-), epistaxis (-), otorrhea (-), otalgia (-) Respiratory; shortness of breath (+), wheezing (-), cough (-), sputum (-), pleuritic chest pain (-) Cardiovascular; chest pain (-), peripheral edema (-), paroxysmal nocturnal dyspnea (-), orthopnea (-) Gastrointestinal; nausea (-), vomiting (-), abdominal pain (-), diarrhea (-), constipation (-), melena (-), hematochezia (-) Urinary; urinary frequency (-), dysuria (-), urgency (-), flank pain (-), gross hematuria (-), incontinence (-) Skin; rash (-), 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 General: Chronic ill- looking, fragile, in no apparent distress,. HEENT: Normocephalic, atraumatic, nonicteric sclera, anemic conjunctive. Neck: Supple, without JVD or goiter or thyroid mass. Respiratory: Normal breathing effort, clear to auscultation bilaterally, no crackles no wheezing or rhonchi. Cardiovascular: Regular rate and rhythm, S1, S2 normal, ejection systolic murmur at aortic valve but no gallop. Gastrointestinal: Normal bowel sounds, nondistended, nontender, No ascites, , No masses, no hepatosplenomegaly. Extremities l: No clubbing, No peripheral edema, full range of motion, no deformity, no muscle atrophy, AV fistula on the left forearm with good bruit and thrills. Integumentary: No rashes, petechia, suspected lesions. Lymphatics: No axilla or cervical lymphadenopathy. Neurology; alert awake oriented x3, no focal neurologic deficit, normal affection . mood and behavior. Assessment And Plan - Plan 69 yrs old Female with past medical history of diabetes, hypertension, hyperlipidemia, diastolic heart failure, old CVA, peripheral artery disease, ESRD on dialysis Friday, presents to ER with shortness of breath and generalized weakness For the last 2 to 3 days. #1 symptomatic severe anemia with relative iron deficiency Hemoglobin stable around 9 after she received 1 unit transfusion for 7.2, iron study reviewed serum ferritin less than 500, saturation less than 20%, reticulocyte index less than 2, suggestive of hypoproliferative anemia likely due to CKD, patient also complaining of dark stool, unable to obtain fecal occult blood due to unavailability of the test at the facility, no clinical bleeding, I ordered erythropoietin stimulating agent with IV iron, but nephrology discontinued erythropoietin stimulating agent saying that they will evaluate the patient for SAVANNA at outpatient. Plavix on hold, outpatient EGD/colonoscopy may be indicated #2 ESRD on hemodialysis Chest x-ray showed minimal bilateral pleural effusion and stable mild pulmonary edema, continue inpatient hemodialysis scheduled. #3 tension headache or migraine, related to #1 will continue [place] and sumatriptan #4 symptomatic second-degree Mobitz type II heart block Carvedilol discontinued, cardiology note appreciated, patient is indicated for pacemaker placement #5 known aortic stenosis Transthoracic echocardiogram in August 2023 reviewed, moderate to severe AAS, normal left ventricular ejection fraction, cardiology ordered a repeat transtho racic echo echocardiogram #4 history of hypertension Blood pressure is reasonably controlled on losartan . Will continue losartan on holding her parameter I will hold any anticoagulant for #1 Plan to discharge home in a few days depending on cardiology recommendation
--- NOTE | 2024-05-09 14:24 | P.PN ---
(S) Pt still reporting fatigue, weakness, MORALES. Remains on tele monitoring. Cardiology note and IM note reviewed (O) vitals reviewed in the EMR General: In mild distress, Cooperative, Other (Appears chronically ill) HEENT: Atraumatic, Normocephalic, off LFNC Neck: Supple Respiratory: Normal air movement, Other (mildly diminshed at bases) Cardiovascular: Non tachy, chronic mild non pitting Edema, Systolic murmur Gastrointestinal: Soft and benign, Non-distended, No tenderness Musculoskeletal: Other Integumentary: Other (Stasis dermatitis) Neurological: Normal speech, Normal tone Laboratory Data (last 24 hrs) Reviewed in the EMR Conclusions/Impression: A/P) -ESRD 2nd to chronic conditions. HD performed Mon as OP last week, SEQ/UF performed , regular HD performed Fri and Fri. Next HD tmrw, metab profile stable, lytes ok -Labile BP, chronic HTN with CKD -labile range, BP lower at times during admission, UF goal lowered on HD Fri, ARB dose lowered -Dyspnea, multifactorial and while she has underlying chronic diastolic CHF with impressive BNP, likely worsened anemia accounted for more of the change in symptoms was the initial impression. Repeat CXR showed resolution of pulm edema Troponin elevated/leak on admission but flat trend. Mobitz Type II block per cardiology may accounting for some of her symptoms as well, reccs noted, Coreg stopped Pt's OP Switch Coupler is Dr. Linder and she reports recent OP TTE and Holter monitor evals, recommend obtaining records -Acute on chronic anemia 2nd to CKD with possibility of GI bleeding on DAPT - FOBT not avail here, did last week transfuse 1 unit PRBC for Hb < 8 in cardiac pt, will assess SAVANNA/IV iron dosing (already ordered) at OP unit (T sat > 20 but < 30%, s/p IV iron doses ordered by IM, did Fri dose Retacrit 10,000 units IV on HD ) and may refer to GI as OP. Defer anti platelet therapy indications to Cardiology Pankaj Huber MD, [facility]
--- NOTE | 2024-05-10 14:37 | ECHO ---
HEIGHT: 5 ft 2 in WEIGHT: 200 lb 3.2 oz DATE OF STUDY: 05/10/[address]: Jay Jay Ruano 2-DIMENSIONAL: YES M.MODE: YES DOPPLER: YES COLOR FLOW: YES TDS: NO PORTABLE: YES DEFINITY: NO BUBBLE STUDY: NO DIAGNOSIS: AORTIC STENOSIS CARDIAC HISTORY: CATHERIZATION: SURGERY: PROSTHETIC VALVE: PACEMAKER: MEASUREMENTS (cm) DIASTOLIC (NORMALS) SYSTOLIC (NORMALS) IVSd 1.4 (0.6-1.2) LA Diam 5.5 (1.9-4.0) LVEF 55-60% LVIDd 4.8 (3.5-5.7) LVIDs 3.5 (2.0-3.5) %FS 26% LVPWd 1.4 (0.6-1.2) Ao Diam 2.6 (2.0-3.7) 2 DIMENSIONAL ASSESSMENT: RIGHT ATRIUM: NORMAL LEFT ATRIUM: NORMAL RIGHT VENTRICLE: NORMAL LEFT VENTRICLE: NORMAL TRICUSPID VALVE: TRACE OF TRICUSPID REGURGITATION MITRAL VALVE: NORMAL PULMONIC VALVE: NORMAL AORTIC VALVE: CALCIFIED PERICARDIAL EFFUSION: NONE AORTIC ROOT: NORMAL LEFT VENTRICULAR WALL MOTION: NORMAL. DOPPLER/COLOR FLOW: DIASOTLIC DYSFUNCTION. COMMENTS: 1. NORMAL LEFT VENTRICULAR SYSTOLIC FUNCTION, EJECTION FRACTION 55-60%, NORMAL WALL MOTION. 2. DIASTOLIC DYSFUNCTION. 3. MODERATE AORTIC STENOSIS (AORTIC VALVE AREA 1.1 CENTIMETERS SQUARED, MEAN GRADIENT 39mmHg). TECHNOLOGIST: MIREYA MANN
[2024-05-10 22:01] VITALS: TEMP 97.6
--- NOTE | 2024-05-10 22:17 | P.PN ---
Date of Service: 05/10/24 Vital Signs Temp Pulse Resp BP Pulse Ox 97.6 F 65 18 110/54 L 99 05/10/24 20:00 05/10/24 20:00 05/10/24 20:00 05/10/24 20:00 05/10/24 20:00 Medications Acetaminophen (Acetaminophen 325 Mg Tablet) 650 mg PO Q4HP PRN PRN Reason: Pain scale 2-4 (Mild) Last Admin: 05/07/24 19:28 Dose: 650 mg Acetaminophen/Butalbital/Caffeine (Acetamin/Caffeine/Butalb Tab) 2 tab PO Q4H PRN PRN Reason: Pain scale 8-10 (Severe) Last Admin: 05/07/24 09:27 Dose: 2 tab Hydrocodone Bitart/Acetaminophen (Hydrocodone/Apap 7.5/325 Mg Tab) 1 tab PO Q4H PRN PRN Reason: Pain scale 8-10 (Severe) Last Admin: 05/10/24 17:27 Dose: 1 tab Albuterol Sulfate (Albuterol 2.5 Mg/3 Ml Neb [place]) 2.5 mg NEB Q6HP PRN PRN Reason: SHORTNESS OF BREATH Ascorbic Acid (Ascorbic Acid 500 Mg Tablet) 500 mg PO DAILY [facility] Last Admin: 05/10/24 09:12 Dose: 500 mg Aspirin (Aspirin Ec 81 Mg Tab) 81 mg PO DAILY [facility] Last Admin: 05/10/24 09:13 Dose: 81 mg Atorvastatin Calcium (Atorvastatin 10 Mg Tab) 10 mg PO DAILY [facility] Last Admin: 05/10/24 09:12 Dose: 10 mg Cholecalciferol (Vitamin D 1000 Unit Tab) 1,000 unit PO DAILY [facility] Last Admin: 05/10/24 09:00 Dose: 1,000 unit Gabapentin (Gabapentin 100 Mg Cap) 300 mg PO DAILY PRN PRN Reason: neuropathy Heparin Sodium (Porcine) (Heparin 1,000 Unit/Ml Vial) 2,000 unit IV EVERY HD PRN PRN Reason: Prevent HD System Clotting Last Admin: 05/10/24 10:27 Dose: 2,000 unit Hydralazine HCl (Hydralazine Hcl 20 Mg/Ml Vial) 10 mg IV Q6HP PRN PRN Reason: Goal to achieve SBP in comment Last Admin: 05/08/24 12:49 Dose: 10 mg Sodium Chloride (Sodium Chloride) 250 mls @ 0 mls/hr IV .Q0M [facility] Last Admin: 05/05/24 21:04 Dose: 250 mls Ipratropium [place] (Ipratropium Brom 0.5mg/2.5ml) 0.5 mg NEB [id number] PRN PRN Reason: SHORTNESS OF BREATH Losartan Potassium (Losartan Potassium 50 Mg Tablet) 50 mg PO BEDTIME [facility] Last Admin: 05/10/24 21:00 Dose: Not Given Ondansetron HCl (Ondansetron 4 Mg/2 Ml Vial) 4 mg IV Q6HP PRN PRN Reason: NAUSEA / VOMITING Last Admin: 05/10/24 17:26 Dose: 4 mg Ondansetron HCl (Ondansetron 4 Mg (Odt) Tab) 4 mg PO Q8HP PRN PRN Reason: nausea and vomiting Sertraline HCl (Sertraline Hcl 50 Mg Tab) 50 mg PO DAILY [facility] Last Admin: 05/10/24 09:12 Dose: 50 mg Sevelamer Carbonate (Sevelamer Carbonate 0.8 Gm Packet) 0.8 gm PO TIDWM [facility] Last Admin: 05/10/24 17:27 Dose: 0.8 gm Sumatriptan Succinate (Sumatriptan Succi 50 Mg Tab) 50 mg PO Q2HP PRN PRN Reason: Migraine Last Admin: 05/10/24 03:52 Dose: 50 mg Vitamin B Complex/Vit C/Folic Acid (Multivitamins,Therapeut 1 Tab) 1 tab PO DAILY [facility] Last Admin: 05/10/24 09:13 Dose: 1 tab Microbiology Results 05/03/24 20:47 Nasopharnyx Influenza Type A Antigen Screen - Final 05/03/24 20:47 Nasopharnyx Influenza Type B Antigen Screen - Final Assessment/ Plan: Nephrology No dyspnea No chest pain Weakness No acute events overnight Vitals, medications, blood work and imaging reviewed in the chart NAD. MMM. NCAT. Normal Respiratory Effort. S1S2. ND Abd. No C/C. LE Edema trace. No rash. AAO. Normal speech. LEFT VENTRICULAR WALL MOTION: NORMAL. DOPPLER/COLOR FLOW: DIASOTLIC DYSFUNCTION. COMMENTS: 1. NORMAL LEFT VENTRICULAR SYSTOLIC FUNCTION, EJECTION FRACTION 55- 60%, NORMAL WALL MOTION. 2. DIASTOLIC DYSFUNCTION. 3. MODERATE AORTIC STENOSIS (AORTIC VALVE AREA 1.1 CENTIMETERS SQUARED, MEAN GRADIENT 39mmHg). ESRD on HD MWF -HD TIW -Seen and examined on HD today HTN with CKD/ CHF -Continue Coreg & Losartan Diastolic CHF, A/C -Low sodium diet -HD with UF DM II with CKD, Polyneuropathy & Peripheral Angiopathy -Continue Gabapentin -RISS prn Anemia in CKD Iron Deficiency -Retacrit prn -Continue IV iron CKD MBD -Continue [place] Hospitalist note reviewed
[2024-05-10 23:28] VITALS: O2SAT 99
[2024-05-11 07:02] VITALS: BP 127/59
[2024-05-11] MEDS: ONDANSETRON 4 MG (ODT) TAB PO PRN (09:01)
--- NOTE | 2024-05-11 10:09 | P.PN ---
Subjective Date of Service: 05/11/24 Chief Complaint: SOB Subjective: No new changes, No C/O voiced, Tolerating diet, Ambulating, Improving Review of Systems 10-point ROS is otherwise unremarkable Physical Examination - Vital Signs Temperature: 97.6 F Blood Pressure: 127/59 Pulse: 71 Respirations: 18 Pulse Ox (%): 100 - Physical Exam General: Alert, In no apparent distress HEENT: Atraumatic, PERRLA, EOMI Neck: Supple, JVD not distended Respiratory: Clear to auscultation bilaterally, Normal air movement Cardiovascular: Regular rate/rhythm, Normal S1 S2 Gastrointestinal: Normal bowel sounds, No tenderness Musculoskeletal: No tenderness Integumentary: No rashes Neurological: Normal speech, Normal tone, Normal affect Lymphatics: No axilla or inguinal lymphadenopathy Other Physical/Emotional Findings: - Physical Exam. General: Chronic ill- looking, fragile, in no apparent distress,. HEENT: Normocephalic, atraumatic, nonicteric sclera, anemic conjunctive. Neck: Supple, without JVD or goiter or thyroid mass. Respiratory: Normal breathing effort, clear to auscultation bilaterally, no crackles no wheezing or rhonchi. Cardiovascular: Regular rate and rhythm, S1, S2 normal, ejection systolic murmur at aortic valve but no gallop. Gastrointestinal: Normal bowel sounds, nondistended, nontender, No ascites, , No masses, no hepatosplenomegaly. Extremities l: No clubbing, No peripheral edema, full range of motion, no deformity, no muscle atrophy, AV fistula on the left forearm with good bruit and thrills. Integumentary: No rashes, petechia, suspected lesions. Lymphatics: No axilla or cervical lym phadenopathy. Neurology; alert awake oriented x3, no focal neurologic deficit, normal affection . mood and behavior. - Studies Medications List Reviewed: Yes Assessment And Plan - Current Problems (Diagnosis) (1) Mobitz type 2 second degree heart block Current Visit: Yes Status: Acute Plan: hold AVN blocking agents Tele reviewed and gissell more events while inpatient recommend outpatient follow up with cardiology for evaluation for pacemaker. (2) Aortic stenosis Current Visit: Yes Status: Acute Plan: moderate per our recent echo, valve area 1.1, MG 39 mmHg continue to monitor. (3) CHF (congestive heart failure) Current Visit: No Status: Acute Plan: continue current medications and volume adjustment with dialysis. Qualifiers: Heart failure type: unspecified Heart failure chronicity: acute on chronic Qualified Code(s): I50.9 - Heart failure, unspecified
--- NOTE | 2024-05-11 14:33 | P.DS ---
Admission Date: 05/03/24 Discharge Date: 05/11/24 Disposition: ROUTINE DISCHARGE Discharge Condition: GOOD Reason for Admission: SOB Brief History of Present Illness: 69 yrs old Female with past medical history of diabetes, hypertension, hyperlipidemia, CHF, ESRD on dialysis Friday, presents to ER with shortness of breath and generalized weakness For the last 2 to 3 days. Patient denies any fever, headache, chest pain, abdominal pain, nausea, vomiting, diarrhea, syncope, near syncope, focal neurological deficit, rash, known sick contacts, travel history, Pulse Ox (%): 94 - Physical Exam General: Alert, In no apparent distress, Oriented x3 HEENT: Atraumatic, Normocephalic Neck: Supple Respiratory: Diminished, Crackles/rales Cardiovascular: Regular rate/rhythm, Normal S1 S2, Edema Capillary refill: <2 Seconds Gastrointestinal: Hypoactive, Soft and benign, W/out hepatosplenomegaly Musculoskeletal: No clubbing, No contractures Integumentary: No rashes Neurological: Normal strength at 5/5 x4 extr, Cranial nerves 3-12 intact, Normal reflexes 2+ Hospital Course: 69 yrs old Female with past medical history of diabetes, hypertension, hyperlipidemia, CHF, ESRD on dialysis Friday, presents to ER with shortness of breath and generalized weakness For the last 2 to 3 days. Was noted to have acute on chronic heart failure, treated with aggressive diuresis, hypertension, hyperlipidemia, resume home meds, end-stage renal disease seen by nephrology for hemodialysis tolerating diet, stable to discharge home, follow-up with nephrology outpatient. Discharge medication Albuterol, Atrovent, nebulizer Assessment Acute on chronic heart failure treated with aggressive diuresis Essential hypertension, hyperlipidemia, diabetes, resume home medications, Anemia of chronic disease, H&H stable, follow-up with nephrology after discharge End-stage renal disease on hemodialysis, follow-up with nephrology after discharge for outpatient dialysis schedule Spike type II, will need to follow-up with cardiovascular surgery outpatient for pacemaker-discontinue Coreg, hold AVN blocking agents per cardiology Aortic stenosis, follow-up with cardiovascular surgery outpatient Echo : 1. NORMAL LEFT VENTRICULAR SYSTOLIC FUNCTION, EJECTION FRACTION 55-60%, NORMAL WALL MOTION. 2. DIASTOLIC DYSFUNCTION. 3. MODERATE AORTIC STENOSIS (AORTIC VALVE AREA 1.1 CENTIMETERS SQUARED, MEAN GRADIENT 39mmHg). 05/07 Repeat chest x-ray resolution of pulmonary edema 05/03 chest x-ray N: Stable findings which may suggest CHF. No new focal opacities Continue home medicines as previously prescribed GOAL: Clear understanding of disease process INSTRUCTIONS: Physician Discharge Instructions: -Follow-up with nephrology after discharge for hemodialysis -Follow-up with cardiovascular surgery outpatient for evaluation of pacemaker, -Follow-up with PCP in 1 to 2 weeks -Please call Dr. Patiño at [phone] if any questions regarding hospital stay -Please call nursing station at [phone] if any nursing or medication questions -Return to the emergency room if symptoms worsen Diet: ADA, low sodium Activity: Fall precautions Vital Signs/Physical Exam: Temp Pulse Resp BP Pulse Ox 97.6 F 71 18 127/59 L 100 05/11/24 10:09 05/11/24 10:09 05/11/24 10:09 05/11/24 10:05/11/24 10:09 Other Physical/Emotional Findings: - Physical Exam. General: Chronic ill- looking, fragile, in no apparent distress,. HEENT: Normocephalic, atraumatic, nonicteric sclera, anemic conjunctive. Neck: Supple, without JVD or goiter or thyroid mass. Respiratory: Normal breathing effort, clear to auscultation bilaterally, no crackles no wheezing or rhonchi. Cardiovascular: Regular rate and rhythm, S1, S2 normal, ejection systolic murmur at aortic valve but no gallop. Gastrointestinal: Normal bowel sounds, nondistended, nontender, No ascites, , No masses, no hepatosplenomegaly. Extremities l: No clubbing, No peripheral edema, full range of motion, no deformity, no muscle atrophy, AV fistula on the left forearm with good bruit and thrills. Integumentary: No rashes, petechia, suspected lesions. Lymphatics: No axilla or cervical lymphadenopathy. Neurology; alert awake oriented x3, no focal neurologic deficit, normal affection . mood and behavior. Laboratory Data at Discharge: WBC 6.80 thou/uL (4.3-10.9) 05/09/24 04:05 Hgb 8.8 g/dL (12.0-15.0) L 05/09/24 04:05 Hct 27.2 % (36.0-45.0) L 05/09/24 04:05 Plt Count 161 thou/uL (152-406) 05/09/24 04:05 PT 13.1 SECONDS (9.4-12.5) H 05/03/24 20:47 INR 1.18 05/03/24 20:47 Sodium 133 mEq/L (136-145) L 05/08/24 05:45 Potassium 4.8 mEq/L (3.5-5.1) 05/08/24 05:45 BUN 22 mg/dL (7-18) H 05/08/24 05:45 Creatinine 4.56 mg/dL (0.55-1.02) H 05/08/24 05:45 Glucose 130 mg/dL (74-106) H 05/08/24 05:45 Phosphorus 3.4 mg/dL (2.5-4.9) 05/04/24 05:23 Magnesium 2.4 mg/dL (1.6-2.4) 05/04/24 05:23 Total Bilirubin 0.4 mg/dL (0.2-1.0) 05/04/24 05:23 AST 11 U/L (15-37) L 05/04/24 05:23 ALT 17 U/L (13-56) 05/04/24 05:23 Alkaline Phosphatase 85 U/L (45-117) D 05/04/24 05:23 Home Medications: Aspirin [Aspirin EC] 81 mg PO DAILY 04/10/22 Atorvastatin Calcium [Lipitor*] 10 mg PO DAILY 04/10/22 Cholecalciferol (Vitamin D3) [Vitamin D3] 1,000 unit PO DAILY 04/10/22 Clopidogrel Bisulfate [Plavix*] 75 mg PO DAILY 04/10/22 Gabapentin 300 mg PO DAILY PRN 04/10/22 Losartan Potassium [Cozaar*] 50 mg PO BID 08/20/23 Ascorbic Acid [Vitamin C*] 500 mg PO DAILY 05/04/24 Hydrocodone/Acetaminophen [Hydrocodone-Acetamin 5-325 mg] 1 each PO TIDP PRN 05/04/24 Naloxone HCl 4 mg NS SEECOM 05/04/24 Ondansetron HCl 4 mg PO Q8HP PRN 05/04/24 Sertraline [Zoloft*] 50 mg PO DAILY 05/04/24 Sevelamer Carbonate 0.8 gm PO TIDWM 05/04/24 Vit B Comp C/Folic Acid/Vit D3 [Dialyvite 800 Plus D Wafer] 1 each PO DAILY 05/04/24 Albuterol Neb [Proventil 0.083% Neb Soln] 2.5 mg NEB Q6HP PRN #60 amp 05/11/24 Ipratropium Neb [Atrovent*] 0.5 mg NEB [id number] PRN #60 amp 05/11/24 Nebulizer 1 each MC DAILY #1 ea 05/11/24 Nebulizer Accessories [Aeroneb Go] 1 each MC DAILY #1 ea 05/11/24 New Medications: Nebulizer Accessories [Aeroneb Go] 1 each MC DAILY #1 ea Ipratropium Neb [Atrovent*] 0.5 mg NEB [id number] PRN #60 amp PRN Reason: Shortness Of Breath Nebulizer 1 each MC DAILY #1 ea Albuterol Neb [Proventil 0.083% Neb Soln] 2.5 mg NEB Q6HP PRN #60 amp PRN Reason: Shortness Of Breath Physician Discharge Instructions: -DC IV and DC home -Follow-up with PCP in 1 to 2 weeks -Follow-up with Cardiology in 1 to 2 weeks -Please call Dr. Patiño at [phone] if any questions regarding hospital stay -Please call nursing station at [phone] if any nursing or medication questions -Return to the emergency room if symptoms worsen Diet: Renal Activity: Fall precautions Followup: Jabari Retana DO [ACTIVE - CAN ADMIT] - Juan Manuel Thomas MD [Primary Care Provider] - 1-2 Weeks Time spent managing pt's care (in minutes): 45
== END 2024-05-11 14:50 | disposition home or self-care (01) | DRG 291 ==
LOC: ER 20:05 → 2ND 22:30
PROVIDERS: ADMIT Family Medicine; ATTEND Hospitalist
PROC: 5A1D70Z Performance of Urinary Filtration, Intermittent, Less than 6 Hours Per Day (ICD-10-PCS; principal; 2024-05-03)
PROC: 30233N1 Transfusion of Nonautologous Red Blood Cells into Peripheral Vein, Percutaneous Approach (ICD-10-PCS; 2024-05-04)
DX: I13.2 Hypertensive heart and chronic kidney disease with heart failure and with stage 5 chronic kidney disease, or end stage renal disease (principal); I50.33 Acute on chronic diastolic (congestive) heart failure; N18.6 End stage renal disease; E11.22 Type 2 diabetes mellitus with diabetic chronic kidney disease; E11.42 Type 2 diabetes mellitus with diabetic polyneuropathy; E11.51 Type 2 diabetes mellitus with diabetic peripheral angiopathy without gangrene; D63.1 Anemia in chronic kidney disease; D50.9 Iron deficiency anemia, unspecified; I44.1 Atrioventricular block, second degree; I35.0 Nonrheumatic aortic (valve) stenosis; I87.2 Venous insufficiency (chronic) (peripheral); E78.5 Hyperlipidemia, unspecified; D72.829 Elevated white blood cell count, unspecified; Z88.0 Allergy status to penicillin; Z99.2 Dependence on renal dialysis; Z88.8 Allergy status to other drugs, medicaments and biological substances; Z11.52 Encounter for screening for COVID-19; Z79.82 Long term (current) use of aspirin; Z79.02 Long term (current) use of antithrombotics/antiplatelets; Z86.73 Personal history of transient ischemic attack (TIA), and cerebral infarction without residual deficits; Z90.49 Acquired absence of other specified parts of digestive tract; Z79.899 Other long term (current) drug therapy; Z90.710 Acquired absence of both cervix and uterus
CPT/HCPCS: 36415; 71045; 80048; 80053; 80076; 82728; 82947; 83540; 83605; 83735; 83880; 84100; 84466; 84484; 85014; 85018; 85025; 85027; 85044; 85610; 86850; 86900; 86901; 86920; 87340; 87804; 87811; 90935; 93306; 94760; 99285; J0360; J1644; J1940; J2405; J2916; J7050; P9016; Q0162

== ENCOUNTER 2024-06-10 18:45 | Emergency (ER) | payer BC, OTHER ==
--- OUTSIDE RECORDS SUMMARY | 2024-06-10 18:48 | XMS REPORT | Continuity of Care Document ---
Author Name Unknown Address [address] [facility] [address] [place] [address] [facility] thconnect Address [address] [facility] [address] [place] [address] Care Team Providers Care Concrete Block Molder Name Role Phone SALOMÓN NELSON Primary Care Physician UnavailERICH Carlton Attending Clinician Unavailable ASHISH ADAN Attending Clinician Unavailab le [email or web address]_Kamadisona_S Attending Clinician Unavaila DARRIN Womack Attending Clinician UnavailDarrin Seaman MD Attending Clinician [phone] Doctor Unassigned, Pierre Part Attending Clinician Zahida Dumont Attending Clinician [phone] EMMA HA Attending Clinician Unavailable ASHISH ADAN Admitting Clinician Unavailab le [email or web address]_Kamadisona_S Admitting Clinician UnavailDARRIN Rodgers Admitting Clinician Unavail le Payers Payer Name Policy Type Policy Number Effective Date Expirati on Date Source [employer] [employer] [place] AD[place] [id number] 2023 00:00:00 MEDICARE PART A \T\ B [id number] 2020 00:00:00 [place] [id number] 2021 00:00:00 Problems Condition Name Condition Details Condition Category Status Onset Date Resolution Date Last Treatment Date Treating Clinician Comments Source Morbid obesity with body mass index of 40.0-49.9 Morbid obesity with body mass index of 40.0-49.9 Disease Active 02-01 00:00: 00 [facility] Morbid obesity with body mass index of 40.0-49.9 Morbid obesity with body mass index of 40.0-49.9 Disease Active 02-01 00:00: 00 [facility] Acute respirator y disease due to COVID-19 virus Acute respirator y disease due to COVID-19 virus Disease Active 01-13 00:00: 00 [facility] Obesity (BMI 30-39.9) Obesity (BMI 30-39.9) Disease Active 01-13 00:00: 00 [facility] Urinary tract obstructio n Obstructiv e and reflux uropathy, unspecifie d Problem [facility] [id number] Cerebrovas cular accident (CVA), unspecifie d mechanism Problem [facility] [id number] End stage renal disease Problem Common [facility] [id number] Cystitis bacillary, chronic Problem [facility] [id number] Hydronephr osis, right Problem [facility] [id number] Recurrent UTI Problem [facility] [id number] Dependence on renal dialysis Problem [facility] [id number] Cystitis Problem [facility] [id number] Gross hematuria Problem [facility] [id number] Suprapubic pain Problem [facility] [id number] Lower urinary tract symptoms (LUTS) Problem [facility] [id number] Pelvic pain Problem [facility] [id number] Acute lower UTI Problem [facility] 76569684 Acute cystitis with hematuria Problem [facility] Allergies, Adverse Reactions, Alerts Allergy Name Allergy Type Status Severity Reaction(s) Onset Date Inactive Date Treating Clinician Comments Source Penicill in Propensi ty to adverse reaction s Active Anaphylaxis 2014-06 00:00: 00 [facility] PENICILL IN DRUG INGREDI Active Anaphylaxis 2014-06 00:00: 00 [facility] [id number] [address] allergy Active Unknown [facility] Social History Social Habit Start Date Stop Date Quantity Comments Source History of Tobacco Use [facility] Sex Assigned At [facility] Exposure to SARS-CoV-2 (event) 2021-09-17 00:00:00 2021-09-27 09:49:00 Not sure [facility] History SDOH Transport Med 2020-01-14 00:00:00 2020-01-14 00:00:00 2 [facility] History SDOH Transport Non-Med 2020-01-14 00:00:00 2020-01-14 00:00:00 2 [facility] Tobacco use and exposure 2020-01-14 00:00:00 2020-01-14 00:00:00 Never used [facility] Alcohol intake 2020-01-14 00:00:00 2020-01-14 00:00:00 0 /d [facility] History SDOH Financial 2020-01-14 00:00:00 2020-01-14 00:00:00 1 [facility] History SDOH Food Worry 2020-01-14 00:00:00 2020-01-14 00:00:00 3 [facility] History SDOH Food Scarcity 2020-01-14 00:00:00 2020-01-14 00:00:00 3 [facility] Smoking Status Start Date Stop Date Source Never Smoker [facility] Medications Ordered Medication Name Filled Medication Name [...] 02-09 00:00: 00 05-11 05:59 :00 No [id number] 81mg Take 1 tablet by mouth daily for 90 days. [facility] cholecalcif filiberto, vitamin D3, 25 mcg (1,000 unit) tablet 02-09 00:00: 00 05-11 05:59 :00 No [id number] 1000U Take 1 tablet by mouth daily for 90 days. [facility] ferrous sulfate 325 mg (65 mg iron) tablet 02-09 00:00: 03-12 04:59 :00 No [id number] 325mg Take 1 tablet by mouth daily for 30 days. [facility] naproxen sodium (ALEVE) 220 mg capsule 02-08 21:56: 18 Yes 220{cap johan} Take 220 Caps by mouth as needed. [facility] naproxen sodium (ALEVE) 220 mg capsule 02-08 16:56: 18 Yes 220{cap johan} Take 220 Caps by mouth as needed. [facility] [place]ets [facility] [place]-08 00:00: 00 Yes [id number] Use as directed [facility] Blood-Gluco se Meter Kit 02-08 00:00: 00 Yes [id number] Use as directed [facility] Lancets Mis 02-08 00:00: 00 Yes [id number] Use as directed [facility] Blood-Gluco se Meter Kit 02-08 00:00: 00 Yes [id number] Use as directed [facility] Blood Glucose Strip-Disp Meter Kit 02-08 00:00: 00 Yes [id number] Use as directed [facility] amLODIPine 10 mg tablet 02-08 00:00: 05-10 05:59 :00 No [id number] 10mg Take 1 tablet by mouth daily for 90 days. [facility] carvediloL 12.5 mg tablet 02-08 00:00: 05-10 05:59 :00 No [id number] 12.5mg Take 1 tablet by mouth 2 (two) times daily with meals for 90 days. [facility] sennosides 8.6 mg tablet 02-08 00:00: 05-10 05:59 :00 No [id number] 8.6mg Take 1 tablet by mouth 2 (two) times daily for 90 days. [facility] Insulin Glargine (LANTUS SOLOSTAR U-100 INSULIN) 100 unit/mL (3 mL) injection 02-08 00:00: 05-10 05:59 :00 No [id number] 20U inject 20 Units under the skin at bedtime for 90 days. [facility] hydrALAZINE 25 mg tablet 02-08 00:00: 05-10 05:59 :00 No [id number] 25mg Take 1 tablet by mouth 2 (two) times daily for 90 days. [facility] furosemide 40 mg tablet 01-09 00:00: 00 Yes TAKE 1 TABLET BY MOUTH TWICE A DAY [facility] cyclobenzap rine 10 mg tablet 2018-06 00:00: 00 Yes 10mg Take 10 mg by mouth. [facility] metoclopram renato HCl 5 mg tablet 2018-06 00:00: 00 Yes 5mg Take 5 mg by mouth. [facility] pantoprazol e 40 mg EC tablet 2018-06 00:00: 00 Yes 40mg Take 40 mg by mouth. [facility] pravastatin 40 mg tablet 2018-06 00:00: 00 Yes 40mg Take 40 mg by mouth. [facility] Carvedilol 3.125 MG Carvedilol 3.125 MG No 1{table t_with_ food} BID Carvedilol 3.125 MG Vitamin D3 2466110 UNIT/GM Vitamin D3 9208456 UNIT/GM No Vitamin D3 1242359 UNIT/GM Losartan Potassium 25 MG Losartan Potassium [...] eeded} QD Colace 100 MG Vitamin D3 9857104 UNIT/GM Vitamin D3 3348910 UNIT/GM No Vitamin D3 1479169 UNIT/GM Aspirin 81 81 MG Aspirin 81 [...] eeded} QD Colace 100 MG Vitamin D3 8433598 UNIT/GM Vitamin D3 6997394 UNIT/GM No Vitamin D3 4054191 UNIT/GM Aspirin 81 81 MG Aspirin 81 [...] eeded} QD Colace 100 MG Vitamin D3 6228932 UNIT/GM Vitamin D3 5431597 UNIT/GM No Vitamin D3 9326514 UNIT/GM Aspirin 81 81 MG Aspirin 81 [...] 1{capsu le_as_n eeded} QD Colace 100 MG Vital Signs Vital Name Observation Time Observation Value Comments S ource height 2022-06-13 11:15:00 62 [in_i] Commo n [facility] weight 2022-06-13 11:15:00 29.4 [lb_av] Com [facility] temperature 2022-06-13 11:15:00 97.4 [degF] Com [facility] bmi 2022-06-13 11:15:00 5.38 kg/m2 Commo n [facility] oximetry 2022-06-13 11:15:00 97 % Commo n [facility] respiratory rate 2022-06-13 11:15:00 16 /min [facility] blood pressure systolic 2022-06-13 11:15:00 135 mm[Hg] Common [facility] blood pressure diastolic 2022-06-13 11:15:00 62 mm[Hg] [facility] height 2021-12-13 10:00:00 62 [in_i] Commo n [facility] weight 2021-12-13 10:00:00 223 [lb_av] Comm on [facility] temperature 2021-12-13 10:00:00 97.8 [degF] Com mon [facility] bmi 2021-12-13 10:00:00 40.78 kg/m2 Comm on [facility] oximetry 2021-12-13 10:00:00 98 % Commo n [facility] respiratory rate 2021-12-13 10:00:00 16 /min [facility] blood pressure systolic 2021-12-13 10:00:00 132 mm[Hg] Common [facility] blood pressure diastolic 2021-12-13 10:00:00 68 mm[Hg] Common [facility] height 2021-11-29 15:30:00 62 [in_i] Commo n [facility] weight 2021-11-29 15:30:00 223.8 [lb_av] Co mmon [facility] temperature 2021-11-29 15:30:00 97.2 [degF] Com mon [facility] bmi 2021-11-29 15:30:00 40.93 kg/m2 Comm on [facility] oximetry 2021-11-29 15:30:00 98 % Commo n [facility] respiratory rate 2021-11-29 15:30:00 16 /min [facility] blood pressure systolic 2021-11-29 15:30:00 189 mm[Hg] Common [facility] blood pressure diastolic 2021-11-29 15:30:00 73 mm[Hg] [facility] Procedures Procedure Date / Time Performed Performing Clinician Source MR LUMBAR SPINE WO CONTRAST 2021-10-03 17:33:38 Darrin Jett [facility] MR CERVICAL SPINE WO CONTRAST 2021-09-27 16:22:00 Darrin Jett [facility] NOTICE OF PRIVACY PRACTICES 2021-09-27 14:56:14 Doctor Unassigned, Pierre Part [facility] CONSENT/REFUSAL FOR DIAGNOSIS AND TREATMENT 2021-09-27 14:55:59 Doctor Unassigned, Pierre Part [facility] CONSENT/REFUSAL FOR DIAGNOSIS AND TREATMENT 2021-09-27 14:55:21 Doctor Unassigned, Pierre Part [facility] ASSIGNMENT OF BENEFITS 2021-09-27 14:54:58 Docto r Unassigned, Pierre Part [facility] AUTHORIZATION FOR RELEASE OF PHI 2020-03-07 05:01:00 Doctor Unassigned, Pierre Part [facility] Encounters Start Date/Time End Date/Time Encounter Type Admission Type Attending [facility] Care Facility Care Department Encounter ID Source 2022-02-18 14:14:03 Outpatient ERICH AMOS [facility] [id number] [facility] 2021-11-29 14:01:03 Outpatient ERICH AMOS [facility] [id number] [facility] 2023-11-02 22:23:00 2023-11-03 00:40:00 Emergency X ASHISH ADAN [facility] ERT [id number] [facility] 2023-04-01 00:00:00 2023-04-01 00:00:00 Outpatient GC_GCBZW_Ka diyala_S PRIV PRIV [id number] [facility] 2023-03-31 00:00:00 2023-03-31 00:00:00 Outpatient GC_GCBZW_Ka diyala_S PRIV PRIV [id number] [facility] 2022-08-20 00:00:00 2022-08-20 00:00:00 (TEL) [facility] [id number] [facility] 2022-06-27 00:00:00 2022-06-27 00:00:00 (TEL) [facility] [id number] [facility] 2022-06-13 00:00:00 2022-06-13 00:00:00 OFFICE VISIT EST PT LEVEL [id number] [facility] 2022-03-08 00:00:00 2022-03-08 00:00:00 OL DIG E/M SVC 21+ MIN [facility]ML[facility] [id number] [facility] 2022-02-01 00:00:00 2022-02-01 00:00:00 (TEL) [facility]LMLC [facility] [id number] [facility] 2022 00:00:00 2022 00:00:00 OFFICE VISIT ESTAB PT LEVEL [id number] [facility] 2021-12-13 00:00:00 2021-12-13 00:00:00 OFFICE VISIT ESTAB PT LEVEL [id number] [facility] 2021-11-29 00:00:00 2021-11-29 00:00:00 OFFICE VISIT NEW PT LEVEL [id number] [facility] 2021-10-03 11:18:32 2021-10-03 23:59:00 Outpatient R BRANDAN [facility]LY [facility] [id number] [facility] 2021-10-03 11:18:32 2021-10-03 23:59:00 [facility] [id number] [id number] [facility] 2021-09-27 09:30:00 2021-09-27 23:59:00 Hospital Encounter [facility] [id number] [id number] [id number] [facility] 2021-09-27 09:51:28 2021-09-27 09:29:00 Outpatient R DARRIN JETT [facility] [id number] [facility] 2021-09-27 09:00:00 2021-09-27 09:29:00 Hospital Encounter Darrin Jett [facility] [id number] [id number] [facility] 2020-03-07 00:00:00 2020-03-07 00:00:00 Orders Only Doctor Unassigned, Pierre Part [facility] [id number] [id number] [facility] 2020-03-07 00:00:00 2020-03-07 00:00:00 Orders Only Doctor Unassigned, Pierre Part [facility] [id number] [id number] 4.2.7.2.686 [id number] 2020-02-10 00:00:00 2020-02-10 00:00:00 Transition of Care Zahida Girard [id number] [id number] [id number] [id number] [facility] 2020-02-10 00:00:00 2020-02-10 00:00:00 Transition of Care Zahida Girard [id number] [id number] [id number] 2020-01-13 21:11:00 2020-01-13 21:11:00 Emergency X EMMA HA [facility] ERT [id number] [facility]
--- NOTE | 2024-06-10 19:44 | RAD REPORT ---
EXAM: CT brain without contrast HISTORY: TRAUMA COMPARISON: None TECHNIQUE: Multiple contiguous axial images were obtained and a CT of the brain without contrast. Sag ittal and coronal reformats were performed. One or more of the following dose reduction techniques were used: Automated exposure control, adjust ment of the mA and/or kV according to patient size, and/or iterative reconstruction. FINDINGS: No evidence of hydrocephalus, intracranial hemorrhage, or extra-axial fluid collection. Mild brain atrophy with mild periventricular and deep white matter chronic microvascular ischemic ch anges present. No evidence of midline shift or areas of brain edema. The calvarium is intact. The visualized paranasal sinuses and mastoid air cells are essentially clear . Moderate left frontal scalp hematoma. IMPRESSION: No evidence of acute intracranial abnormality. EXAM: CT of the cervical spine without contrast HISTORY: Neck pain, injury TRAUMA TECHNIQUE: Multiple contiguous axial images were obtained in a CT of the cervical spine without contr ast. Sagittal and coronal reformats were performed. FINDINGS: The vertebral bodies demonstrate normal height and alignment. No evidence of acute fracture or subluxation.. Moderate lower cervical degenerative changes, most notable at C5-6. No prevertebral soft tissue swelling is seen. The posterior facets are well aligned. Normal alignment of the skull base with the cervical spine is seen. The lung apices are unremarkable. IMPRESSION: No evidence of acute osseous abnormality of the cervical spine.
--- NOTE | 2024-06-10 20:05 | RAD REPORT ---
EXAMINATION: XR RIGHT KNEE CLINICAL INDICATION: Female, 69 years old. SMASH INJURY TECHNIQUE: Multiple views of the right knee were obtained. COMPARISON: No prior exam. FINDINGS: [id number] tricompartmental osteoarthritis, greatest medially. Mild chondrocalcinosis of the menisci. Vascular atherosclerosis is prominent. The bones are moderately osteopenic. No fracture, dislocation or suprapatellar joint fluid.
--- NOTE | 2024-06-10 20:05 | RAD REPORT ---
EXAMINATION: XR LEFT KNEE CLINICAL INDICATION: SMASH INJURY TECHNIQUE: Multiple projections of the left knee were obtained. COMPARISON: No prior exam. FINDINGS: Mild diffuse osteopenia. Mild tricompartmental osteoarthritis. Vascular atherosclerosis [facility] [place]. No fracture, dislocation or joint effusion.
[2024-06-10] MEDS ORDERED: ONDANSETRON 4 MG (ODT) TAB ONE (21:11)
[2024-06-10] MEDS ORDERED: HYDROCODONE/APAP 5/325 MG TAB ONE (21:11)
[2024-06-10] MEDS ORDERED: methocarbamoL 750 MG TAB ONE (21:11)
--- NOTE | 2024-06-10 21:22 | ER ---
Nurse's Notes [facility] Name: Abby Meredith Age: 69 yrs Sex: Female : 1955 Arrival Date: 06/10/2024 Time: 18:45 Bed 2 Private MD: Diagnosis: Unspecified injury of head, initial encounter;Acute closed head injury, left periorbital hematoma, left forehead hematoma, left forehead abrasion, right knee contusion, right knee abrasion, left knee contusion, left knee abrasion, left ankle blistering lesion. Presentation: 06/10 18:48 Care prior to arrival: Cervical collar in place. bp 18:48 Chief complaint: EMS states: pt had a witnessed fall, slipped and fell in the rain. kc6 denies LOC, but did hit her head. Coronavirus screen: At this time, the client does not indicate any symptoms associated with coronavirus-19. Ebola Screen: No symptoms or risks identified at this time. Initial Sepsis Screen: Does the patient meet any 2 criteria? No. Patient's initial sepsis screen is negative. Does the patient have a suspected source of infection? No. Patient's initial sepsis screen is negative. Risk Assessment: Do you want to hurt yourself or someone else? Patient reports no desire to harm self or others. Onset of symptoms was June 10, 2024. 18:48 Method Of Arrival: EMS: [place] [id number] 18:48 Acuity: TOMASA 3 kc6 Triage Assessment: 18:48 General: Appears in no apparent distress. Behavior is cooperative, appropriate for age, bp anxious. Pain: Complains of pain in forehead. EENT: No deficits noted. Neuro: Level of Consciousness is awake, alert, obeys commands, Oriented to Appropriate for age. Cardiovascular: No deficits noted. Respiratory: No deficits noted. GI: No signs and/or symptoms were reported involving the gastrointestinal system. : No signs and/or symptoms were reported regarding the genitourinary system. Derm: No deficits noted. Musculoskeletal: No deficits noted. Injury Description: Bruise sustained to forehead. Historical: - Allergies: 18:48 PENICILLINS; bp - PMHx: 18:48 CHF; Diabetes - IDDM; Dialysis; M-W-F; Hyperlipidemia; Hypertension; bp - Immunization history:: Adult Immunizations up to date. - Infectious Disease History:: Denies. - Social history:: Smoking status: Patient denies any tobacco usage or history of. Screenin:50 [facility] ED Fall Risk Assessment (Adult) History of falling in the last 3 months, kc6 including since admission Yes- single mechanical fall (1 pt) Confusion or Disorientation No (0 pts) Intoxicated or Sedated No (0 pts) Impaired Gait No (0 pts) Mobility Assist Device Used No (0 pt) Altered Elimination No (0 pt) Score/Fall Risk Level 0 - 2 = Low Risk Oriented to surroundings, Maintained a safe environment, Educated pt \T\ family on fall prevention, incl call for assistance when getting out of bed. Abuse screen: Denies threats or abuse. Denies injuries from another. Nutritional screening: No deficits noted. Tuberculosis screening: No symptoms or risk factors identified. Assessment: 18:50 General: Appears in no apparent distress. Behavior is cooperative, appropriate for age, bp anxious. 20:06 General: Appears in no apparent distress. uncomfortable, Behavior is calm, cooperative. al5 Pain: Complains of pain in right knee and left knee and forehead. Neuro: Level of Consciousness is awake, alert, obeys commands, Oriented to person, place, time, situation. Cardiovascular: Capillary refill < 3 seconds Patient's skin is warm and dry. Respiratory: Airway is patent Respiratory effort is even, unlabored, Respiratory pattern is regular, symmetrical. GI: No signs and/or symptoms were reported involving the gastrointestinal system. : No signs and/or symptoms were reported regarding the genitourinary system. EENT: No signs and/or symptoms were reported regarding the EENT system. Derm: Skin is intact, is healthy with good turgor, Skin is pink, warm \T\ dry. normal, Bruising that is dark purple, to L side forehead and bilateral knees. Musculoskeletal: Reports pain in right knee and left knee. 21:20 Reassessment: Patient appears in no apparent distress at this time. No changes from al5 previously documented assessment. Patient and/or family updated on plan of care and expected duration. Pain level reassessed. Patient is alert, oriented x 3, equal unlabored respirations, skin warm/dry/pink. Vital Signs: 18:48 BP 145 / 80; Pulse 87; Resp 16 S; Pulse Ox 100% on R/A; Weight 89.81 kg (R); Height 5 kc6 ft. 2 in. (R); Pain 10/10; 19:00 BP 165 / 66; Pulse 88; Resp 16; Pulse Ox 93% on R/A; al5 19:30 BP 158 / 63; Pulse 87; Resp 16; Pulse Ox 92% on R/A; al5 20:30 BP 164 / 67; Pulse 86; Resp 16; Pulse Ox 93% on R/A; al5 21:00 BP 168 / 86; Pulse 88; Resp 17; Pulse Ox 93% on R/A; al5 18:48 Body Mass Index 36.21 (89.81 kg, 157.48 cm) kc6 18:48 Pain Scale: Adult kc6 [place] Coma Score: 21:16 Eye Response: spontaneous(4). Motor Response: obeys commands(6). Verbal Response: sp4 oriented(5). Total: 15. ED Course: 18:47 Patient arrived in ED. kc6 18:48 Aldo Chin, RN is Primary Nurse. bp 18:48 Ritu Cee MD is Attending Physician. gb1 18:48 Arm band placed on. kc6 18:49 Triage completed. kc6 18:49 Patient has correct armband on for positive identification. Bed in low position. Call kc6 light in reach. Side rails up X2. Pulse ox on. NIBP on. Door closed. Noise minimized. Lights dimmed. Warm blanket given. Pillow given. 18:50 Provided Education on: NA. bp 18:50 Patient maintains SpO2 saturation greater than 95% on room air. kc6 19:26 Head C Spine Mpr Wo Con In Process Unspecified. EDMS 19:40 Primary Nurse role handed off by Aldo Chin, BLAIR al5 19:40 Michelle Shirley, BLAIR is Primary Nurse. al5 19:40 No provider procedures requiring assistance completed. al5 19:56 Knee Left 2 View XRAY In Process Unspecified. EDMS 19:56 Knee Right 2 View XRAY In Process Unspecified. EDMS 20:04 Attending Physician role handed off by Ritu Cee MD sp4 20:04 Garry Shultz MD is Attending Physician. sp4 20:09 Ice pack to injury. al5 21:46 Patient did not have IV access during this emergency room visit. al5 Administered Medications: 21:17 Drug: HYDROcodone-acetaminophen PO 5 mg-325 mg 2 tabs PO once Route: PO; al5 21:20 Follow up: Response: No adverse reaction; Medication administered at discharge. al5 21:17 Drug: Methocarbamol PO 750 mg PO once Route: PO; al5 21:20 Follow up: Response: No adverse reaction; Medication administered at discharge. al5 21:17 Drug: Ondansetron PO 4 mg PO once Route: PO; al5 21:20 Follow up: Response: No adverse reaction; Medication administered at discharge. al5 Medication: 18:50 VIS not applicable for this client. bp Outcome: 21:21 Discharge ordered by . sp4 21:46 Discharged to home via wheelchair, al5 21:46 Condition: good 21:46 Discharge instructions given to patient, Instructed on discharge instructions, follow up and referral plans. medication usage, Demonstrated understanding of instructions, follow-up care, medications, Prescriptions given X 1, 21:47 Patient left the ED. al5 Signatures: Dispatcher [employer] EDAldo Altamirano RN RN Melissa Ball RN RN kc6 Garry Shultz MD MD sp4 Ritu Cee MD MD gb1 Michelle Shirley RN RN al5
--- NOTE | 2024-06-10 21:22 | EDPHYS ---
Physician Documentation [facility] Name: Abby Meredith Age: 69 yrs Sex: Female : 1955 Arrival Date: 06/10/2024 Time: 18:45 Bed 2 Private MD: ED Physician Garry Shultz HPI: 06/10 19:23 This 69 yrs old Female presents to ER via EMS with complaints of Fall Injury. gb1 19:23 69-year-old female fell outside of her house and hit her head on the concrete. She is gb1 on a baby aspirin no LOC. She denies any neck pain although she does have some pain on her knee when she fell and scraped them. History of CHF, diabetes, dialysis, hyperlipidemia and hypertension.. 21:14 Patient has history of end-stage renal disease, diabetes, dialysis dependent, left arm sp4 hemodialysis fistula. Patient care assumed from Dr. Cee. Historical: - Allergies: 18:48 PENICILLINS; bp - PMHx: 18:48 CHF; Diabetes - IDDM; Dialysis; M-W-F; Hyperlipidemia; Hypertension; bp - Immunization history:: Adult Immunizations up to date. - Infectious Disease History:: Denies. - Social history:: Smoking status: Patient denies any tobacco usage or history of. ROS: 21:16 Constitutional: Negative for fever, chills, and weight loss, positive for bilateral sp4 knee pain, positive bilateral knee contusion, positive head injury, positive left forehead hematoma, positive left forehead abrasion. 21:16 All other systems are negative, Exam: 19:23 Constitutional: This is a well developed, well nourished patient who is awake, alert, gb1 and in no acute distress. Head/Face: Patient has a large frontal forehead left-sided hematoma. Eyes: Pupils equal round and reactive to light, extra-ocular motions intact. Lids and lashes normal. Conjunctiva and sclera are non-icteric and not injected. Cornea within normal limits. Periorbital areas with no swelling, redness, or edema. ENT: Nares patent. No nasal discharge, no septal abnormalities noted. Tympanic membranes are normal and external auditory canals are clear. Oropharynx with no redness, swelling, or masses, exudates, or evidence of obstruction, uvula midline. Mucous membranes moist. Neck: Trachea midline, no thyromegaly or masses palpated, and no cervical lymphadenopathy. Supple, full range of motion without nuchal rigidity, or vertebral point tenderness. No Meningismus. Chest/axilla: Normal chest wall appearance and motion. Nontender with no deformity. No lesions are appreciated. Cardiovascular: Regular rate and rhythm with a normal S1 and S2. No gallops, murmurs, or rubs. Normal PMI, no JVD. No pulse deficits. Respiratory: Lungs have equal breath sounds bilaterally, clear to auscultation and percussion. No rales, rhonchi or wheezes noted. No increased work of breathing, no retractions or nasal flaring. Back: No spinal tenderness. No costovertebral tenderness. Full range of motion. Skin: Warm, dry with normal turgor. Normal color with no rashes, no lesions, and no evidence of cellulitis. MS/ Extremity: Pulses equal, no cyanosis. Neurovascular intact. Full, normal range of motion. 21:16 Musculoskeletal/extremity: Bilateral knee contusion bilateral knee mild abrasions. sp4 Left ankle medial side there is skin blisters x 2. There is also other facial hematoma on the left side left periorbital left frontal hematoma. Vital Signs: 18:48 BP 145 / 80; Pulse 87; Resp 16 S; Pulse Ox 100% on R/A; Weight 89.81 kg (R); Height 5 kc6 ft. 2 in. (R); Pain 10/10; 19:00 BP 165 / 66; Pulse 88; Resp 16; Pulse Ox 93% on R/A; al5 19:30 BP 158 / 63; Pulse 87; Resp 16; Pulse Ox 92% on R/A; al5 20:30 BP 164 / 67; Pulse 86; Resp 16; Pulse Ox 93% on R/A; al5 21:00 BP 168 / 86; Pulse 88; Resp 17; Pulse Ox 93% on R/A; al5 18:48 Body Mass Index 36.21 (89.81 kg, 157.48 cm) kc6 18:48 Pain Scale: Adult kc6 [place] Coma Score: 21:16 Eye Response: spontaneous(4). Motor Response: obeys commands(6). Verbal Response: sp4 oriented(5). Total: 15. MDM: 19:02 Medical Screening Exam initiated gb1 19:23 Data reviewed: vital signs, nurses notes, radiologic studies, CT scan, plain films. gb1 20:02 ED course: pt pending CT brain and knee xrays, if negative can d/c home. Pt turned over gb1 to Dr. Shultz pending radiology results.. 21:17 Differential diagnosis: abrasion, closed head injury, contusion, fracture, laceration, sp4 multiple trauma, sprain, strain. Data reviewed: radiologic studies. ED course: EXAMINATION: XR LEFT KNEE CLINICAL INDICATION: SMASH INJURY TECHNIQUE: Multiple projections of the left knee were obtained. COMPARISON: No prior exam. FINDINGS: Mild diffuse osteopenia. Mild tricompartmental osteoarthritis. Vascular atherosclerosis versus. No fracture, dislocation or joint effusion.. ED course: EXAMINATION: XR RIGHT KNEE CLINICAL INDICATION: Female, 69 years old. SMASH INJURY TECHNIQUE: Multiple views of the right knee were obtained. COMPARISON: No prior exam. FINDINGS: [id number] tricompartmental osteoarthritis, greatest medially. Mild chondrocalcinosis of the menisci. Vascular atherosclerosis is prominent. The bones are moderately osteopenic. No fracture, dislocation or suprapatellar joint fluid.. ED course: EXAM: CT brain without contrast HISTORY: TRAUMA COMPARISON: None TECHNIQUE: Multiple contiguous axial images were obtained and a CT of the brain without contrast. Sagittal and coronal reformats were performed. One or more of the following dose reduction techniques were used: Automated exposure control, adjustment of the mA and/or kV according to patient size, and/or iterative reconstruction. FINDINGS: No evidence of hydrocephalus, intracranial hemorrhage, or extra-axial fluid collection. Mild brain atrophy with mild periventricular and deep white matter chronic microvascular ischemic changes present. No evidence of midline shift or areas of brain edema. The calvarium is intact. The visualized paranasal sinuses and mastoid air cells are essentially clear. Moderate left frontal scalp hematoma. IMPRESSION: No evidence of acute intracranial abnormality. EXAM: CT of the cervical spine without contrast HISTORY: Neck pain, injury TRAUMA TECHNIQUE: Multiple contiguous axial images were obtained in a CT of the cervical spine without contrast. Sagittal and coronal reformats were performed. FINDINGS: The vertebral bodies demonstrate normal height and alignment. No evidence of acute fracture or subluxation.. Moderate lower cervical degenerative changes, most notable at C5-6. No prevertebral soft tissue swelling is seen. The posterior facets are well aligned. Normal alignment of the skull base with the cervical spine is seen. The lung apices are unremarkable. IMPRESSION: No evidence of acute osseous abnormality of the cervical spine.. 06/10 19:07 Order name: C Spine W/O Contrast gb1 06/10 19:07 Order name: Knee Left 2 View XRAY; Complete Time: 21:03 gb1 06/10 19:07 Order name: Knee Right 2 View XRAY; Complete Time: 21:03 gb1 06/10 19:12 Order name: Head C Spine Mpr Wo Con; Complete Time: 19:57 EDMS Administered Medications: 21:17 Drug: HYDROcodone-acetaminophen PO 5 mg-325 mg 2 tabs PO once Route: PO; al5 21:20 Follow up: Response: No adverse reaction; Medication administered at discharge. al5 21:17 Drug: Methocarbamol PO 750 mg PO once Route: PO; al5 21:20 Follow up: Response: No adverse reaction; Medication administered at discharge. al5 21:17 Drug: Ondansetron PO 4 mg PO once Route: PO; al5 21:20 Follow up: Response: No adverse reaction; Medication administered at discharge. al5 Disposition Summary: 06/10/24 21:21 Discharge Ordered Notes: Location: Home sp4 Problem: new sp4 Symptoms: have improved sp4 Condition: Stable sp4 Diagnosis - Unspecified injury of head, initial encounter sp4 - Acute closed head injury, left periorbital hematoma, left forehead hematoma, left sp4 forehead abrasion, right knee contusion, right knee abrasion, left knee contusion, left knee abrasion, left ankle blistering lesion. Followup: sp4 - With: Private Physician - When: 7 - 10 days - Reason: Recheck today's complaints Discharge Instructions: - Discharge Summary Sheet sp4 - Head Injury, Adult, [id number] sp4 Forms: - Patient Portal Instructions sp4 Prescriptions: - acetaminophen-codeine 300-60 mg Oral tablet - take 1 tablet ORAL route every 8 hours PRN pain; 20 tablet; Refills: 0, Product sp4 Selection Permitted Signatures: Dispatcher [employer] EDMS Aldo Chin RN RN bp Garry Shultz MD MD sp4 Ritu Cee MD MD gb1 Michelle Shirley RN RN al5 Corrections: (The following items were deleted from the chart) 19: 19:08 Knee Right 2 View+RAD.RAD.BRZ ordered. EDMS EDMS 19:10 19:08 Head Brain Wo Cont+CT.RAD.BRZ ordered. EDMS EDMS
[2024-06-10 22:14] VITALS: O2SAT 93
[2024-06-10 22:15] VITALS: BP 168/86
== END 2024-06-10 21:47 | disposition home or self-care (01) ==
LOC: ER 18:45
DX: S00.81XA Abrasion of other part of head, initial encounter (principal); S80.212A Abrasion, left knee, initial encounter; S80.211A Abrasion, right knee, initial encounter; S80.02XA Contusion of left knee, initial encounter; S80.01XA Contusion of right knee, initial encounter; S00.12XA Contusion of left eyelid and periocular area, initial encounter; S90.522A Blister (nonthermal), left ankle, initial encounter
CPT/HCPCS: 70450; 72125; 73560 ×2; 99284; Q0162

== ENCOUNTER 2024-10-21 04:08 | Observation (INO) | payer OTHER ==
--- OUTSIDE RECORDS SUMMARY | 2024-10-21 04:11 | XMS REPORT | Continuity of Care Document ---
Author Name Unknown Address [address] [facility] [place] [address] [facility] Address [address] [facility] [place] [address] Care Team Providers Care Nut Processing Supervisor Name Role Phone SALOMÓN NELSON Primary Care Physician ERICH Carvajal Attending Clinician Unavailable ASHISH ADAN Attending Clinician Unavailab le [email or web address]_Kamadisona_S Attending Clinician Unavaila DARRIN Womack Attending Clinician UnavailDarrin Seaman MD Attending Clinician [phone] Doctor Unassigned, [place] Attending Clinician Zahida Dumont Attending Clinician EMMA HA Attending Clinician Unavailable ASHISH ADAN Admitting Clinician Unavailab le GC_GCBZW_Kamadisona_S Admitting Clinician UnavailDARRIN Rodgers Admitting Clinician Unavail le Payers Payer Name Policy Type Policy Number Effective Date Expirati on Date Source [place] [id number] 2023 00:00:00 MEDICARE PART A \T\ B [id number] 2020 00:00:00 [place] [id number] 2021 00:00:00 Problems Condition Name Condition Details Condition Category Status Onset Date Resolution Date Last Treatment Date Treating Clinician Comments Source Morbid obesity with body mass index of 40.0-49.9 Morbid obesity with body mass index of 40.0-49.9 Disease Active 02-01 00:00: 00 [facility] Morbid obesity with body mass index of 40.0-49.9 Morbid obesity with body mass index of 40.0-49.9 Disease Active 02-01 00:00: 00 [facility] Acute respirator y disease due to COVID-19 virus Acute respirator y disease due to COVID-19 virus Disease Active 01-13 00:00: 00 [facility] Obesity (BMI 30-39.9) Obesity (BMI 30-39.9) Disease Active 01-13 00:00: 00 [facility] Urinary tract obstructio n Obstructiv e and reflux uropathy, unspecifie d Problem [facility] [id number] Cerebrovas cular accident (CVA), unspecifie d mechanism Problem [facility] [id number] End stage renal disease Problem Common [facility] [id number] Cystitis bacillary, chronic Problem [facility] [id number] Hydronephr osis, right Problem [facility] [id number] Recurrent UTI Problem [facility] [id number] Dependence on renal dialysis Problem [facility] [id number] Cystitis Problem [facility] [id number] Gross hematuria Problem [facility] [id number] Suprapubic pain Problem [facility] [id number] Lower urinary tract symptoms (LUTS) Problem [facility] [id number] Pelvic pain Problem [facility] [id number] Acute lower UTI Problem [facility] [id number] Acute cystitis with hematuria Problem [facility] Allergies, Adverse Reactions, Alerts Allergy Name Allergy Type Status Severity Reaction(s) Onset Date Inactive Date Treating Clinician Comments Source Penicill in Propensi ty to adverse reaction s Active Anaphylaxis 2014-06 00:00: 00 [facility] PENICILL IN DRUG INGREDI Active Anaphylaxis 2014-06 00:00: 00 [facility] [id number] Drug allergy Active Unknown [facility] Social History Social Habit Start Date Stop Date Quantity Comments Source History of Tobacco Use [facility] Sex Assigned At [facility] Exposure to SARS-CoV-2 (event) 2021-09-17 00:00:00 2021-09-27 09:49:00 Not sure [facility] History SDOH Transport Med 2020-01-14 00:00:00 2020-01-14 00:00:00 2 [facility] History SDOH Transport Non-Med 2020-01-14 00:00:00 2020-01-14 00:00:00 2 [facility] Tobacco use and exposure 2020-01-14 00:00:00 2020-01-14 00:00:00 Never used [facility] Alcohol intake 2020-01-14 00:00:00 2020-01-14 00:00:00 0 /d [facility] History SDOH Financial 2020-01-14 00:00:00 2020-01-14 00:00:00 1 [facility] History SDOH Food Worry 2020-01-14 00:00:00 2020-01-14 00:00:00 3 [facility] History SDOH Food Scarcity 2020-01-14 00:00:00 2020-01-14 00:00:00 3 [facility] Smoking Status Start Date Stop Date Source Never Smoker [facility] Medications Ordered Medication Name Filled Medication Name Start Date Stop Date Current Medication? Ordering Clinician Indication Dosage Frequency Signature (SIG) Comments Components Source Meropenem 500 MG Meropenem 500 MG 01-21 00:00: 00 02-04 00:00 :00 No Meropenem 500 MG Bactrim DS 800-160 MG Bactrim DS 800-160 MG 630 00:00: 00 12-09 00:00 :00 No Bactrim DS 800-160 MG aspirin 81 mg chewable tablet 02-09 00:00: 00 05-11 05:59 :00 No [id number] 81mg Take 1 tablet by mouth daily for 90 days. [facility] cholecalcif filiberto, vitamin D3, 25 mcg (1,000 unit) tablet 02-09 00:00: 05-11 05:59 :00 No [id number] 1000U Take 1 tablet by mouth daily for 90 days. [facility] ferrous sulfate 325 mg (65 mg iron) tablet 02-09 00:00: 03-12 04:59 :00 No [id number] 325mg Take 1 tablet by mouth daily for 30 days. [facility] naproxen sodium (ALEVE) 220 mg capsule 02-08 21:56: 18 Yes 220{cap johan} Take 220 Caps by mouth as needed. [facility] naproxen sodium (ALEVE) 220 mg capsule 02-08 16:56: 18 Yes 220{cap johan} Take 220 Caps by mouth as needed. [facility] Lancets [facility] 02-08 00:00: 00 Yes [id number] Use as directed [facility] Blood-Gluco se Meter Kit 02-08 00:00: 00 Yes [id number] Use as directed [facility] Lancets Misc 02-08 00:00: 00 Yes [id number] Use as directed [facility] Blood-Gluco se Meter Kit 02-08 00:00: 00 Yes [id number] Use as directed [facility] Blood Glucose Strip-Disp Meter Kit 02-08 00:00: 00 Yes [id number] Use as directed [facility] amLODIPine 10 mg tablet 02-08 00:00: 00 05-10 05:59 :00 No [id number] 10mg Take 1 tablet by mouth daily for 90 days. [facility] carvediloL 12.5 mg tablet 02-08 00:00: 00 05-10 05:59 :00 No [id number] 12.5mg Take 1 tablet by mouth 2 (two) times daily with meals for 90 days. [facility] sennosides 8.6 mg tablet 02-08 00:00: 00 05-10 05:59 :00 No [id number] 8.6mg Take 1 tablet by mouth 2 (two) times daily for 90 days. [facility] Insulin Glargine (LANTUS SOLOSTAR U-100 INSULIN) 100 unit/mL (3 mL) injection 02-08 00:00: 05-10 05:59 :00 No [id number] 20U inject 20 Units under the skin at bedtime for 90 days. [facility] hydrALAZINE 25 mg tablet 02-08 00:00: 05-10 05:59 :00 No [id number] 25mg Take 1 tablet by mouth 2 (two) times daily for 90 days. [facility] furosemide 40 mg tablet 01-09 00:00: 00 Yes TAKE 1 TABLET BY MOUTH TWICE A DAY [facility] cyclobenzap rine 10 mg tablet 2018-06 00:00: 00 Yes 10mg Take 10 mg by mouth. [facility] metoclopram renato HCl 5 mg tablet 2018-06 00:00: 00 Yes 5mg Take 5 mg by mouth. [facility] pantoprazol e 40 mg EC tablet 2018-06 00:00: 00 Yes 40mg Take 40 mg by mouth. [facility] pravastatin 40 mg tablet 2018-06 00:00: 00 Yes 40mg Take 40 mg by mouth. [facility] Carvedilol 3.125 MG Carvedilol 3.125 MG No 1{table t_with_ food} BID Carvedilol 3.125 MG Vitamin D3 9092318 UNIT/GM Vitamin D3 1691288 UNIT/GM No Vitamin D3 6266767 UNIT/GM Losartan Potassium 25 MG Losartan Potassium [...] eeded} QD Colace 100 MG Vitamin D3 6021391 UNIT/GM Vitamin D3 8685477 UNIT/GM No Vitamin D3 3381769 UNIT/GM Aspirin 81 81 MG Aspirin 81 [...] eeded} QD Colace 100 MG Vitamin D3 6603541 UNIT/GM Vitamin D3 8538850 UNIT/GM No Vitamin D3 1638895 UNIT/GM Aspirin 81 81 MG Aspirin 81 [...] eeded} QD Colace 100 MG Vitamin D3 2082226 UNIT/GM Vitamin D3 7049743 UNIT/GM No Vitamin D3 3484662 UNIT/GM Aspirin 81 81 MG Aspirin 81 [...] height 2022-06-13 11:15:00 62 [in_i] [facility] weight 2022-06-13 11:15:00 29.4 [lb_av] Com [facility] temperature 2022-06-13 11:15:00 97.4 [degF] Com [facility] bmi 2022-06-13 11:15:00 5.38 kg/m2 [facility] oximetry 2022-06-13 11:15:00 97 % [facility] respiratory rate 2022-06-13 11:15:00 16 /min [facility] blood pressure systolic 2022-06-13 11:15:00 135 mm[Hg] Common [facility] blood pressure diastolic 2022-06-13 11:15:00 62 mm[Hg] [facility] height 2021-12-13 10:00:00 62 [in_i] Commo n [facility] weight 2021-12-13 10:00:00 223 [lb_av] Comm on [facility] temperature 2021-12-13 10:00:00 97.8 [degF] Com mon [facility] bmi 2021-12-13 10:00:00 40.78 kg/m2 Comm on [facility] oximetry 2021-12-13 10:00:00 98 % Commo n [facility] respiratory rate 2021-12-13 10:00:00 16 /min [facility] blood pressure systolic 2021-12-13 10:00:00 132 mm[Hg] Common [facility] blood pressure diastolic 2021-12-13 10:00:00 68 mm[Hg] Common [facility] height 2021-11-29 15:30:00 62 [in_i] Commo n [facility] weight 2021-11-29 15:30:00 223.8 [lb_av] Co mmon [facility] temperature 2021-11-29 15:30:00 97.2 [degF] Com mon [facility] bmi 2021-11-29 15:30:00 40.93 kg/m2 Comm on [facility] oximetry 2021-11-29 15:30:00 98 % [facility] respiratory rate 2021-11-29 15:30:00 16 /min [facility] blood pressure systolic 2021-11-29 15:30:00 189 mm[Hg] Common [facility] blood pressure diastolic 2021-11-29 15:30:00 73 mm[Hg] [facility] Procedures Procedure Date / Time Performed Performing Clinician Source MR LUMBAR SPINE WO CONTRAST 2021-10-03 17:33:38 Darrin Jett [facility] MR CERVICAL SPINE WO CONTRAST 2021-09-27 16:22:00 Darrin Jett [facility] NOTICE OF PRIVACY PRACTICES 2021-09-27 14:56:14 Doctor Unassigned, [place] [facility] CONSENT/REFUSAL FOR DIAGNOSIS AND TREATMENT 2021-09-27 14:55:59 Doctor Unassigned, [place] [facility] CONSENT/REFUSAL FOR DIAGNOSIS AND TREATMENT 2021-09-27 14:55:21 Doctor Unassigned, [place] [facility] ASSIGNMENT OF BENEFITS 2021-09-27 14:54:58 Docto r Unassigned, [place] [facility] AUTHORIZATION FOR RELEASE OF PHI 2020-03-07 05:01:00 Doctor Unassigned, [place] [facility] Encounters Start Date/Time End Date/Time Encounter Type Admission Type Attending [facility] Care Facility Care Department Encounter ID Source 2022-02-18 14:14:03 Outpatient ERICH AMOS [facility] [id number] [facility] 2021-11-29 14:01:03 Outpatient ERICH AMOS [facility] [id number] [facility] 2023-11-02 22:23:00 2023-11-03 00:40:00 Emergency X ASHISH ADAN [facility] ERT [id number] [facility] 2023-04-01 00:00:00 2023-04-01 00:00:00 Outpatient GC_GCBZW_Ka diyala_S PRIV PRIV [id number] [facility] 2023-03-31 00:00:00 2023-03-31 00:00:00 Outpatient GC_GCBZW_Ka diyala_S PRIV PRIV [id number] [facility] 2022-08-20 00:00:00 2022-08-20 00:00:00 (TEL) [facility] [id number] [facility] 2022-06-27 00:00:00 2022-06-27 00:00:00 (TEL) [facility] [id number] [facility] 2022-06-13 00:00:00 2022-06-13 00:00:00 OFFICE VISIT EST PT LEVEL 3 [facility]C [facility] [id number] [facility] 2022-03-08 00:00:00 2022-03-08 00:00:00 OL DIG E/M SVC 21+ MIN [facility]LMLC [facility]C [id number] [facility] 2022-02-01 00:00:00 2022-02-01 00:00:00 (TEL) STLMLC STL[facility]C [id number] [facility] 2022 00:00:00 2022 00:00:00 OFFICE VISIT ESTAB PT LEVEL 1 STLMLC STLMLC [id number] [facility] 2021-12-13 00:00:00 2021-12-13 00:00:00 OFFICE VISIT ESTAB PT LEVEL 2 STLMLC STLMLC [id number] [facility] 2021-11-29 00:00:00 2021-11-29 00:00:00 OFFICE VISIT NEW PT LEVEL 4 STLMLC STLMLC [id number] [facility] 2021-10-03 11:18:32 2021-10-03 23:59:00 Outpatient R [facility] [id number] [facility] 2021-10-03 11:18:32 2021-10-03 23:59:00 Hospital Encounter [facility] [id number] [facility] 2021-09-27 09:30:00 2021-09-27 23:59:00 Hospital Encounter [facility] [id number] [facility] 2021-09-27 09:51:28 2021-09-27 09:29:00 Outpatient R DARRIN JETT [facility] [id number] [facility] 2021-09-27 09:00:00 2021-09-27 09:29:00 Hospital Encounter Darrin Jett [facility] [id number] [facility] 2020-03-07 00:00:00 2020-03-07 00:00:00 Orders Only Doctor Unassigned, [place] [facility] [id number] [facility] 2020-03-07 00:00:00 2020-03-07 00:00:00 Orders Only Doctor Unassigned, [place] [facility] [id number] 2020-02-10 00:00:00 2020-02-10 00:00:00 Transition of Care Zahida Girard [id number] [facility] 2020-02-10 00:00:00 2020-02-10 00:00:00 Transition of Care Zahida Girard [place] [id number] 2020-01-13 21:11:00 2020-01-13 21:11:00 Emergency X EMMA HA [facility] ERT [id number] [facility]
[2024-10-21] MEDS ORDERED: NA CHLORIDE 0.9% 250 ML ONE (04:45)
[2024-10-21 04:59] LABS: Absolute Basophils 0.1 K/uL (0-0.5); Absolute Eosinophils 0.2 K/uL (0-0.5); Absolute Lymphocytes (CBC) 0.8 K/uL (0.7-4.9); Absolute Monocytes 0.4 K/uL (0.1-1.3); Absolute Neutrophil 3.2 K/uL (1.8-8.0); Basophils % 1.3 % (0-1.3); Eosinophils % 3.4 % (0-4.4); Hematocrit 20.6 % (36.0-45.0); Hemoglobin 6.8 g/dL (12.0-15.0); Lymphocytes % 17.4 % (15.3-44.8); MCH 30.7 pg (27.0-35.0); MCHC 33.1 g/dL (32.0-36.0); MCV 92.7 fL (80-100); MPV 9.8 fL (7.6-11.3); Monocytes % 9.1 % (3.3-12.3); Neutrophils % 68.8 % (41.7-73.7); Nucleated Red Blood Cells % 0.1 % (0-0); Platelets 125 thou/uL (152-406); RBC Red Blood Cell Count 2.22 M/uL (3.86-4.86); Red Cell Distribution Width 15.5 % (12.1-15.2)
[2024-10-21 05:08] LABS: Anion Gap 8.2 mEq/L (5.0-15.0); Potassium 4.2 mEq/L (3.5-5.1)
[2024-10-21 05:20] LABS: Troponin High Sensitivity 96.4 pg/mL (<58.9)
--- NOTE | 2024-10-21 05:31 | EDPHYS ---
Physician Documentation [facility] Name: Abby Meredith Age: 69 yrs Sex: Female : 1955 Arrival Date: 10/21/2024 Time: 04:08 Bed 17 Private MD: ED Physician Lamont Vega HPI: 10/21 04:37 This 69 yrs old Female presents to ER via Wheelchair with complaints of LOW rn BLOOD PRESSURE, Dizziness. 04:37 The patient presents with dizziness, lightheadedness. Onset: The symptoms/episode rn began/occurred 2 day(s) ago. Modifying factors: The symptoms are alleviated by lying down. The patient has experienced similar episodes in the past. Patient reports dizziness and feeling lightheaded since her Friday dialysis. States felt good on Friday, went to dialysis again on Friday and feels lightheaded again. Reports low blood pressure at home. Reports decreased p.o. intake and not drinking water due to fluid restrictions that dialysis puts on her. Denies any chest pain or shortness of breath. No focal neurological deficit. No abdominal pain/vomiting/diarrhea.. Historical: - Allergies: 04:29 PENICILLINS; br2 - PMHx: 04:29 CHF; Diabetes - IDDM; Dialysis; M-W-F; Hyperlipidemia; Hypertension; br2 - Immunization history:: Adult Immunizations up to date. - Infectious Disease History:: Denies. - Social history:: Smoking status: Patient/guardian denies using tobacco, Patient/guardian denies using alcohol, street drugs. - Family history:: not pertinent. - Hospitalizations: : No recent hospitalization is reported. ROS: 04:37 Constitutional: Negative for fever, chills, and weight loss, Neck: Negative for injury, rn pain, and swelling, Cardiovascular: Negative for chest pain, palpitations, and edema, Respiratory: Negative for shortness of breath, cough, wheezing, and pleuritic chest pain, Abdomen/GI: Negative for abdominal pain, nausea, vomiting, diarrhea, and constipation, Back: Negative for injury and pain, MS/Extremity: Negative for injury and deformity, Skin: Negative for injury, rash, and discoloration, Neuro: Negative for headache, focal weakness, numbness, tingling, and seizure, Exam: 04:37 Constitutional: This is a well developed, well nourished patient who is awake, alert, rn and in no acute distress. ENT: Dry mucous membranes Cardiovascular: Regular rate and rhythm. No pulse deficits. Respiratory: Speaking full sentences, unlabored. No increased work of breathing, no retractions or nasal flaring. Abdomen/GI: Soft, non-tender Skin: No cyanosis, chronic skin changes evident of bilateral lower extremities without warmth or cellulitis. MS/ Extremity: Pulses equal, no cyanosis. Neuro: Awake and alert, GCS 15, oriented to person, place, time, and situation. Cranial nerves II-XII grossly intact. Motor strength 5/5 in all extremities. Sensory grossly intact. Cerebellar exam normal. Normal gait. 05:53 ECG was reviewed by the Attending Physician. rn Vital Signs: 04:23 BP 117 / 54; Pulse 73; Resp 22 S; Temp 97.2(TE); Pulse Ox 100% on R/A; Weight 88.45 kg; br2 Height 5 ft. 2 in. ; Pain 10/10; 04:33 BP 125 / 57; Pulse 75; Resp 20; Pulse Ox 95% ; al5 05:00 BP 125 / 71; Pulse 74; Resp 19; Pulse Ox 91% on R/A; al5 05:30 BP 149 / 63; Pulse 77; Resp 20; Pulse Ox 100% on 2 lpm NC; al5 06:00 BP 152 / 64; Pulse 78; Resp 20; Pulse Ox 100% on 2 lpm NC; al5 07:20 BP 149 / 55; Pulse 77; Resp 16 S; Pulse Ox 100% on 2 lpm NC; kc6 04:23 Body Mass Index 35.67 (88.45 kg, 157.48 cm) br2 04:23 Pain Scale: Adult br2 MDM: 04:17 Medical Screening Exam initiated rn 05:30 Differential diagnosis: cardiac arrhythmia, generalized weakness, hypovolemia, rn idiopathic dizziness, cardiac event, volume depletion secondary to dialysis. Data reviewed: vital signs, nurses notes, lab test result(s), EKG, radiologic studies, plain films, and as a result, I will admit patient. Consideration of Admission/Observation Patient was admitted/placed on observation. Escalation of care including admission/observation considered. Care significantly affected by the following chronic conditions: Chronic Kidney Disease. Counseling: I had a detailed discussion with the patient and/or guardian regarding the historical points, exam findings, and any diagnostic results supporting the discharge/admit diagnosis, lab results, radiology results, the need for further work-up and treatment in the hospital. 06:34 ED course: No evidence or source of infection at this time. Normal WBC. Afebrile. Chest rn x-ray findings most likely edema given ESRD.. 10/21 04:29 Order name: Basic Metabolic Panel; Complete Time: 05:21 rn 10/21 04:29 Order name: CBC with Diff; Complete Time: 05:27 rn 10/21 04:29 Order name: Troponin HS; Complete Time: 05:21 rn 10/21 06:45 Order name: Type And Screen la1 10/21 06:49 Order name: CBC with Automated Diff EDMS 10/21 06:49 Order name: CBC with Automated Diff EDMS 10/21 06:49 Order name: CBC with Automated Diff EDMS 10/21 06:49 Order name: CBC with Automated Diff EDMS 10/21 06:49 Order name: Comprehensive Metabolic Panel EDMS 10/21 06:49 Order name: Comprehensive Metabolic Panel EDMS 10/21 06:49 Order name: Comprehensive Metabolic Panel EDMS 10/21 06:49 Order name: Comprehensive Metabolic Panel EDMS 10/21 06:49 Order name: Troponin High Sensitivity EDMS 10/21 06:49 Order name: Troponin High Sensitivity EDMS 10/21 06:49 Order name: Troponin High Sensitivity EDMS 10/21 04:29 Order name: XRAY Chest (1 view); Complete Time: 06:32 rn 10/21 04:29 Order name: Cardiac monitoring; Complete Time: 04:47 rn 10/21 04:29 Order name: EKG - Nurse/Tech; Complete Time: 04:47 rn 10/21 04:29 Order name: IV Saline Lock; Complete Time: 04:35 rn 10/21 04:29 Order name: Labs collected and sent; Complete Time: 04:35 rn 10/21 04:29 Order name: O2 Per Protocol; Complete Time: 04:35 10/21 04:29 Order name: O2 Sat Monitoring; Complete Time: 04:35 rn EC:53 Rate is 74 beats/min. Rhythm is regular. QRS [place] is Normal. SC interval is prolonged. rn QRS interval is normal. QT interval is normal. No Q waves. T waves are Normal. No ST changes noted. Clinical impression: NSR w/ Non-specific ST/T Changes and 1st degree heart block. Interpreted by me. Reviewed by me. Administered Medications: 04:47 Drug: NS 0.9% IV 250 ml IV at bolus once; to be given as a bolus over 30 minutes Route: al5 IV; Rate: bolus; Site: right antecubital; 05:30 Follow up: Response: No adverse reaction; IV Status: Completed infusion; IV Intake: al5 250ml Disposition Summary: 10/21/24 05:31 Hospitalization Ordered Notes: Hospitalization Status: Observation rn Provider: Prince roscoe Le Location: Telemetry/MedSurg (observation) rn Condition: Stable rn Problem: new rn Symptoms: have improved rn Bed/Room Type: Standard rn Room Assignment: 216(10/21/24 07:05) ty Diagnosis - Hypotension, unspecified rn - End stage renal disease rn - Dizziness and giddiness rn Forms: - Medication Reconciliation Form rn - SBAR form rn - Leadership Thank You Letter rn Signatures: Dispatcher [employer] EDMS Lamont Vega MD MD rn Yandell, Tylor ty Langhorst, Amanda RN RN al5 Tia Perry, RN RN br2 Corrections: (The following items were deleted from the chart) 04:29 04:29 BASIC METABOLIC PANEL+C.LAB.BRZ ordered. EDVT EDMS 04:29 04:29 CBC+H.LAB.BRZ ordered. EDVT EDMS 04:29 04:29 Troponin High Sensitivity+C.LAB.BRZ ordered. EDVT EDMS 04:29 04:29 Chest Single View+RAD.RAD.BRZ ordered. EDVT EDMS 06:35 06:34 ED course: No evidence of infection at this time. Normal WBC. Afebrile. Chest rn x-ray findings most likely edema given ESRD.. rn 07:05 05:31 rn ty
--- NOTE | 2024-10-21 05:31 | ER ---
Nurse's Notes [facility] Name: Abby Meredith Age: 69 yrs Sex: Female : 1955 Arrival Date: 10/21/2024 Time: 04:08 Bed 17 Private MD: Diagnosis: Hypotension, unspecified;End stage renal disease;Dizziness and giddiness Presentation: 10/21 04:23 Chief complaint: Patient states: PT STATES HER B/P HAS BEEN LOW SINCE DIALYSIS ON br2 FRIDAY. C/O HEADACHE, DIZZINESS, AND FEELING WEAK. Coronavirus screen: Client denies travel out of the [place] in the last 14 days. Ebola Screen: Patient denies exposure to infectious person. Initial Sepsis Screen: Does the patient meet any 2 criteria? No. Patient's initial sepsis screen is negative. Does the patient have a suspected source of infection? No. Patient's initial sepsis screen is negative. Risk Assessment: Do you want to hurt yourself or someone else? Patient reports no desire to harm self or others. Onset of symptoms was October 18, 2024. 04:23 Method Of Arrival: Wheelchair br2 04:23 Acuity: TOMASA 3 br2 Triage Assessment: 04:29 General: Appears uncomfortable, Behavior is calm, cooperative. Pain: Complains of pain br2 in forehead Pain currently is 10 out of 10 on a pain scale. Neuro: Level of Consciousness is awake, alert, obeys commands, Oriented to person, place, time, situation. Historical: - Allergies: 04:29 PENICILLINS; br2 - PMHx: 04:29 CHF; Diabetes - IDDM; Dialysis; M-W-F; Hyperlipidemia; Hypertension; br2 - Immunization history:: Adult Immunizations up to date. - Infectious Disease History:: Denies. - Social history:: Smoking status: Patient/guardian denies using tobacco, Patient/guardian denies using alcohol, street drugs. - Family history:: not pertinent. - Hospitalizations: : No recent hospitalization is reported. Screenin:48 [facility] ED Fall Risk Assessment (Adult) History of falling in the last 3 months, al5 including since admission No falls in past 3 months (0 pts) Confusion or Disorientation No (0 pts) Intoxicated or Sedated No (0 pts) Impaired Gait Yes (1 pt) Mobility Assist Device Used Yes (1 pt) Altered Elimination No (0 pt) Score/Fall Risk Level 0 - 2 = Low Risk Oriented to surroundings, Maintained a safe environment, Hourly rounding (assess needs \T\ fall precautionary measures) done. Abuse screen: Denies threats or abuse. Denies injuries from another. Nutritional screening: No deficits noted. Tuberculosis screening: No symptoms or risk factors identified. Assessment: 04:48 General: Appears in no apparent distress. comfortable, Behavior is calm, cooperative. al5 Pain: Complains of pain in head. Neuro: Level of Consciousness is awake, alert, obeys commands, Oriented to person, place, time, situation. Cardiovascular: Capillary refill < 3 seconds Patient's skin is warm and dry. Rhythm is sinus rhythm. Respiratory: Airway is patent Respiratory effort is even, unlabored, Respiratory pattern is regular, symmetrical. GI: No signs and/or symptoms were reported involving the gastrointestinal system. : patient on dialysis, fistula to L upper arm. EENT: No signs and/or symptoms were reported regarding the EENT system. Derm: Skin is intact, is healthy with good turgor, Skin is pink, warm \T\ dry. normal. Musculoskeletal: No signs and/or symptoms reported regarding the musculoskeletal system. 05:38 Reassessment: Patient appears in no apparent distress at this time. No changes from al5 previously documented assessment. Patient and/or family updated on plan of care and expected duration. Pain level reassessed. Patient is alert, oriented x 3, equal unlabored respirations, skin warm/dry/pink. 06:17 Reassessment: Patient appears in no apparent distress at this time. No changes from al5 previously documented assessment. Patient and/or family updated on plan of care and expected duration. Pain level reassessed. Patient is alert, oriented x 3, equal unlabored respirations, skin warm/dry/pink. 07:05 General: Appears in no apparent distress. comfortable, well groomed, well developed, kc6 Behavior is calm, cooperative, appropriate for age, Reports fatigue for >3 days. Pain: Denies pain. Neuro: Level of Consciousness is awake, alert, obeys commands, Oriented to person, place, time, situation, Appropriate for age. Cardiovascular: Denies chest pain, Heart tones S1 S2 present Capillary refill < 3 seconds Rhythm is sinus rhythm Dialysis shunt: in the left arm, with palpable thrill, with auscultated bruit, with no erythema, with no edema, no bleeding noted. Respiratory: Airway is patent Trachea midline Respiratory effort is even, unlabored, Respiratory pattern is regular, symmetrical. GI: No signs and/or symptoms were reported involving the gastrointestinal system. : No signs and/or symptoms were reported regarding the genitourinary system. EENT: No signs and/or symptoms were reported regarding the EENT system. Derm: No signs and/or symptoms reported regarding the dermatologic system. Skin is intact, is healthy with good turgor, Skin is dry, Skin is pale, Skin temperature is warm. Musculoskeletal: No signs and/or symptoms reported regarding the musculoskeletal system. Circulation, motion, and sensation intact. Range of motion: intact in all extremities. Vital Signs: 04:23 BP 117 / 54; Pulse 73; Resp 22 S; Temp 97.2(TE); Pulse Ox 100% on R/A; Weight 88.45 kg; br2 Height 5 ft. 2 in. ; Pain 10/10; 04:33 BP 125 / 57; Pulse 75; Resp 20; Pulse Ox 95% ; al5 05:00 BP 125 / 71; Pulse 74; Resp 19; Pulse Ox 91% on R/A; al5 05:30 BP 149 / 63; Pulse 77; Resp 20; Pulse Ox 100% on 2 lpm NC; al5 06:00 BP 152 / 64; Pulse 78; Resp 20; Pulse Ox 100% on 2 lpm NC; al5 07:20 BP 149 / 55; Pulse 77; Resp 16 S; Pulse Ox 100% on 2 lpm NC; kc6 04:23 Body Mass Index 35.67 (88.45 kg, 157.48 cm) br2 04:23 Pain Scale: Adult br2 ED Course: 04:10 Patient arrived in ED. [email or web address] 04:17 Michelle Shirley, BLAIR is Primary Nurse. al5 04:17 Lamont Vega MD is Attending Physician. al5 04:29 Triage completed. br2 04:47 No provider procedures requiring assistance completed. Inserted saline lock: 22 gauge al5 in right antecubital area, using aseptic technique. Blood collected. Flushed with 10 mL NS. 04:48 Patient has correct armband on for positive identification. Bed in low position. Call al5 light in reach. Side rails up X2. Provided Education on: plan of care. 04:55 XRAY Chest (1 view) In Process Unspecified. EDMS 05:31 Prince Le MD is Hospitalizing Provider. rn 07:00 Oxygen administration via nasal cannula \T\ 2L/min. kc6 07:00 Report received from Michelle Tom RN. 6 07:00 Patient has correct armband on for positive identification. Bed in low position. Call kc6 light in reach. Side rails up X2. Adult w/ patient. utility sales and service manager on. Pulse ox on. NIBP on. Door closed. Noise minimized. Lights dimmed. Pillow given. Verbal reassurance given. 07:00 Arm band placed on. kc6 08:34 Patient admitted, IV remains in place. kc6 Administered Medications: 04:47 Drug: NS 0.9% IV 250 ml IV at bolus once; to be given as a bolus over 30 minutes Route: al5 IV; Rate: bolus; Site: right antecubital; 05:30 Follow up: Response: No adverse reaction; IV Status: Completed infusion; IV Intake: al5 250ml Medication: 04:48 VIS not applicable for this client. al5 Intake: 05:30 IV: 250ml; Total: 250ml. al5 Outcome: 05:31 Decision to Hospitalize by Provider. rn 08:34 Admitted to Med/surg accompanied by tech, family with patient, via stretcher, room 216, kc6 with oxygen, with chart, 08:34 Condition: good 08:34 Instructed on the need for admit, 08:34 Patient left the ED. [facility] Signatures: Dispatcher [employer] EDMS Lamont Vega MD MD rn Jeffries, Jennifer [email or web address] Melissa George RN RN [id number] Michelle Shirley RN RN al5 Tia Perry, BLAIR RN br2 Corrections: (The following items were deleted from the chart) 04:49 04:33 BP 125 / 57; Pulse 75bpm; Resp 16bpm; Pulse Ox 95%; al5 al5
--- NOTE | 2024-10-21 06:19 | RAD REPORT ---
XR CHEST 1 VIEW CLINICAL INDICATION: Dizziness, ESRD COMPARISON: No prior images available for comparison at time of interpretation. FINDINGS: SUPPORT DEVICES: None LUNGS/PLEURAL SPACES: Bilateral perihilar and basilar interstitial opacities could represent vascular congestion, interstitial edema, subsegmental atelectasis and/or infiltrates. No pleural effusion. No pneumothorax. HEART/MEDIASTINUM: Heart is enlarged. Atherosclerotic calcification at aortic arch. BONES/UPPER ABDOMEN/SOFT TISSUES: No acute findings. IMPRESSION: Bilateral perihilar and basilar interstitial opacities could represent vascular congestion, interstit ial edema, subsegmental atelectasis and/or infiltrates. Electronically signed by: Elsa Wolfe MD 10/21/2024 05:45 AM CDT RP Due to temporary technical issues with the PACS/Pycno reporting system, reports are being true d by the in-house radiologist without review as a courtesy to ensure prompt reporting the interpreting radiologist is fully responsible for the content of the report. Transcribed Date/Time: 10/21/2024 6:19 AM
[2024-10-21] MEDS ORDERED: ACETAMINOPHEN 325 MG TABLET PO PRN (06:46)
[2024-10-21] MEDS: NA CHLORIDE 0.9% 250 ML IV SCH (07:00)
--- NOTE | 2024-10-21 08:48 | P.HP ---
Certification for Inpatient Patient admitted to: Observation With expected LOS: <2 Midnights Patient will require the following post-hospital care: None Practitioner: I am a practitioner with admitting privileges, knowledge of patient current condition, hospital course, and medical plan of care. Services: Services provided to patient in accordance with Admission requirements found in Title 42 Section 412.3 of the Code of Federal Regulations Patient History Date of Service: 10/21/24 Reason for admission: Anemia, elevated troponin History of Present Illness: 69-year-old female with history of ESRD on HD MWF, chronic diastolic congestive heart failure, diet-controlled diabetes, hypertension, hyperlipidemia, anemia presents to the emergency department with chief complaint of low blood pressures, dizziness/lightheadedness. She reports she has been getting dizzy/lightheaded with low blood pressure after dialysis recently. Patient was evaluated here in the emergency department her labs were significant for acute on chronic anemia with a hemoglobin of 6.8 and elevated high sensitive troponin at 96.4 and redemonstration of her ESRD. She denies any chest pain, does have some shortness of breath with exertion as well as dizziness and lightheadedness. Blood pressure not low here, chest x-ray was obtained which showed bilateral perihilar and basilar interstitial opacities which could represent vascular congestion, interstitial edema, subsegmental atelectasis and/or infiltrates. Given her symptomatic anemia, elevated troponin she will be admitted to hospital for further evaluation and management Allergies Penicillins Allergy (Severe, Verified 05/04/24 00:35) Anaphylaxis amoxicillin Adverse Reaction (Severe, Verified 05/04/24 00:35) Anaphylaxis levofloxacin Adverse Reaction (Intermediate, Verified 05/04/24 00:35) Headaches Home Medications: Aspirin [Aspirin EC] 81 mg PO DAILY 04/10/22 Atorvastatin Calcium [Lipitor*] 10 mg PO DAILY 04/10/22 Cholecalciferol (Vitamin D3) [Vitamin D3] 1,000 unit PO DAILY 04/10/22 Clopidogrel Bisulfate [Plavix*] 75 mg PO DAILY 04/10/22 Gabapentin 300 mg PO DAILY PRN 04/10/22 Losartan Potassium [Cozaar*] 50 mg PO BID 08/20/23 Ascorbic Acid [Vitamin C*] 500 mg PO DAILY 05/04/24 Hydrocodone/Acetaminophen [Hydrocodone-Acetamin 5-325 mg] 1 each PO TIDP PRN 05/04/24 Naloxone HCl 4 mg NS SEECOM 05/04/24 Ondansetron HCl 4 mg PO Q8HP PRN 05/04/24 Sertraline [Zoloft*] 50 mg PO DAILY 05/04/24 Sevelamer Carbonate 0.8 gm PO TIDWM 05/04/24 Vit B Comp C/Folic Acid/Vit D3 [Dialyvite 800 Plus D Wafer] 1 each PO DAILY 05/04/24 Albuterol Neb [Proventil 0.083% Neb Soln] 2.5 mg NEB Q6HP PRN #60 amp 05/11/24 Ipratropium Neb [Atrovent*] 0.5 mg NEB [id number] PRN #60 amp 05/11/24 Nebulizer 1 each MC DAILY #1 ea 05/11/24 Nebulizer Accessories [Aeroneb Go] 1 each MC DAILY #1 ea 05/11/24 - Past Medical/Surgical History Diabetic: Yes -: HTN -: DM II with CKD & Polyneuropathy -: Metabolic Syndrome. Obesity. -: Dyslipidemia. -: Diastolic CHF -: ESRD (Dr. Retana/ Dr. Huber) MWF -: PAD -: CVD -: Obesity -: Umbilical hernia repair x 2 -: Appendectomy -: Cystoscopy with Bladder Biopsy -: Hysteroscopy with D&C -: AVF Psychosocial/ Personal History: Patient lives at home with her daughter. - Family History Mother -: Diabetes, Kidney disease Father -: Other (see notes) Notes: Brain aneurysm - Social History Alcohol use: No CD- Drugs: No Caffeine use: Yes Place of Residence: Home Review of Systems 10-point ROS is otherwise unremarkable Respiratory: SOB with Excertion Cardiovascular: Light Headedness Physical Examination - Physical Exam General: Alert, In no apparent distress, Oriented x3 HEENT: Atraumatic, PERRLA, EOMI Neck: Supple, 2+ carotid pulse no bruit Respiratory: Clear to auscultation bilaterally, Normal air movement Cardiovascular: Regular rate/rhythm, Normal S1 S2 Gastrointestinal: No tenderness Musculoskeletal: No tenderness Integumentary: No rashes Neurological: Normal gait, Normal speech, Normal strength at 5/5 x4 extr, Normal affect - Studies Laboratory Data (last 24 hrs) 10/21/24 10/21/24 04:34 04:34 WBC 4.60 Hgb 6.8 L Hct 20.6 L Plt Count 125 L Sodium 139 Potassium 4.2 BUN 29 H Creatinine 3.92 H Glucose 157 H Assessment and Plan - Plan Assessment: Symptomatic anemia Anemia of chronic disease with superimposed acute blood loss anemia ESRD on HD MWF Elevated troponin Chronic diastolic congestive heart failure Hypertension Hyperlipidemia Plan: Symptomatic anemia Anemia of chronic disease with superimposed acute blood loss anemia Patient with baseline anemia Had an episode recently where her dialysis access was leaking overnight and she woke up to her shirt covering blood Has been dizzy/lightheaded with low blood pressures at home Hemoglobin 6.8 denies GI bleeding symptoms Will transfuse 1 unit PRBC followed by 40 mg of IV Lasix Repeat H&H 2 hours after transfusion Did complete dialysis yesterday ESRD on HD MWF Nephrology consulted, next candidate for dialysis tomorrow at 5 AM Elevated troponin Suspect combination of demand ischemia and decreased renal clearance Trend troponins Consult cardiology if there is significant delta Chronic diastolic congestive heart failure Hypertension Hyperlipidemia Continue home medications when verified DVT PPX: SCD Code status: Full Discharge Plan: Home Plan to discharge in: 24 Hours - Advance Directives Does patient have a Living Will: No Does patient have a Durable POA for Healthcare: No - Code Status/Comfort Care Code Status Assessed: Yes (Full code) Critical Care: No Time Spent Managing Pts Care (In Minutes): 67
[2024-10-21 08:54] VITALS: O2SAT 100
[2024-10-21] MEDS: FUROSEMIDE 40 MG/4 ML VIAL IV ONE (11:00)
[2024-10-21 13:20] VITALS: BMI 35.6
[2024-10-21 14:19] VITALS: BP 157/67; TEMP 98.1
--- NOTE | 2024-10-21 17:22 | P.DS ---
Admission Date: 10/21/24 Discharge Date: 10/21/24 Disposition: ROUTINE DISCHARGE Discharge Condition: GOOD Reason for Admission: Anemia, elevated troponin Brief History of Present Illness: 69-year-old female with history of ESRD on HD MWF, chronic diastolic congestive heart failure, diet-controlled diabetes, hypertension, hyperlipidemia, anemia presents to the emergency department with chief complaint of low blood pressures, dizziness/lightheadedness. She reports she has been getting dizzy/lightheaded with low blood pressure after dialysis recently. Patient was evaluated here in the emergency department her labs were significant for acute on chronic anemia with a hemoglobin of 6.8 and elevated high sensitive troponin at 96.4 and redemonstration of her ESRD. She denies any chest pain, does have some shortness of breath with exertion as well as dizziness and lightheadedness. Blood pressure not low here, chest x-ray was obtained which showed bilateral perihilar and basilar interstitial opacities which could represent vascular congestion, interstitial edema, subsegmental atelectasis and/or infiltrates. Given her symptomatic anemia, elevated troponin she will be admitted to hospital for further evaluation and management Hospital Course: Assessment: Symptomatic anemia Anemia of chronic disease with superimposed acute blood loss anemia ESRD on HD MWF Elevated troponin Chronic diastolic congestive heart failure Hypertension Hyperlipidemia Patient was admitted to hospital for symptomatic anemia, hypotension at home after dialysis as well as dizziness and lightheadedness. Her hemoglobin on admission was 6.8 and her high sensory troponin was 96.4. She was given 1 unit of packed red blood cells, her blood pressure has improved and is around 140 systolic currently, she has no signs of dyspnea or volume overload. She never had any chest pain and her troponin trended down to 92. She is stable for discharge and outpatient follow-up, she has scheduled chair time with hemodialysis at 5 AM in the morning. Recommend follow-up with primary care doctor and nephrology in 1 to 2 weeks, continue home medications as previously prescribed. Vital Signs/Physical Exam: Temp Pulse Resp BP Pulse Ox 98.1 F 82 18 157/67 H 100 10/21/24 12:00 10/21/24 12:00 10/21/24 12:00 10/21/24 12:00 10/21/24 12:00 General: Alert, In no apparent distress, Oriented x3 HEENT: Atraumatic, PERRLA Neck: Supple, JVD not distended Respiratory: Clear to auscultation bilaterally, Normal air movement Cardiovascular: Regular rate/rhythm, Normal S1 S2 Gastrointestinal: Normal bowel sounds, No tenderness Musculoskeletal: No tenderness Integumentary: No rashes Neurological: Normal speech, Normal affect Laboratory Data at Discharge: WBC 4.60 thou/uL (4.3-10.9) 10/21/24 04:34 Hgb 6.8 g/dL (12.0-15.0) L 10/21/24 04:34 Hct 20.6 % (36.0-45.0) L 10/21/24 04:34 Plt Count 125 thou/uL (152-406) L 10/21/24 04:34 Sodium 139 mEq/L (136-145) 10/21/24 04:34 Potassium 4.2 mEq/L (3.5-5.1) 10/21/24 04:34 BUN 29 mg/dL (7-18) H 10/21/24 04:34 Creatinine 3.92 mg/dL (0.55-1.02) H 10/21/24 04:34 Glucose 157 mg/dL (74-106) H 10/21/24 04:34 Home Medications: Aspirin [Aspirin EC] 81 mg PO DAILY 04/10/22 Atorvastatin Calcium [Lipitor*] 10 mg PO DAILY 04/10/22 Vit B Comp C/Folic Acid/Vit D3 [Dialyvite 800 Plus D Wafer] 1 each PO DAILY 05/04/24 Physician Discharge Instructions: Patient was admitted to hospital for symptomatic anemia, hypotension at home after dialysis as well as dizziness and lightheadedness. Her hemoglobin on adm ission was 6.8 and her high sensory troponin was 96.4. She was given 1 unit of packed red blood cells, her blood pressure has improved and is around 140 systolic currently, she has no signs of dyspnea or volume overload. She never had any chest pain and her troponin trended down to 92. She is stable for discharge and outpatient follow-up, she has scheduled chair time with hemodialysis at 5 AM in the morning. Recommend follow-up with primary care doctor and nephrology in 1 to 2 weeks, continue home medications as previously prescribed. Diet: Renal Activity: Ad olesya Followup: Jabari Retana DO [ACTIVE - CAN ADMIT] - Thomas,Juan Manuel A, MD [Primary Care Provider] - 1 Week Time spent managing pt's care (in minutes): 45
--- NOTE | 2024-10-21 20:54 | P.CNS ---
Date of Consult: 10/21/24 Reason for Consult: ESRD Requesting Physician: Cem Vega Chief Complaint: Anemia, elevated troponin History of Present Illness: 69-year-old female with history of ESRD on HD MWF, chronic diastolic congestive heart failure, diet-controlled diabetes, hypertension, hyperlipidemia, anemia presents to the emergency department with chief complaint of low blood pressures, dizziness/lightheadedness. She reports she has been getting d deep/lightheaded with low blood pressure after dialysis recently. Patient was evaluated here in the emergency department her labs were significant for acute on chronic anemia with a hemoglobin of 6.8 and elevated high sensitive troponin at 96.4 and redemonstration of her ESRD. She denies any chest pain, does have some shortness of breath with exertion as well as dizziness and lightheadedness. Blood pressure not low here, chest x-ray was obtained which showed bilateral perihilar and basilar interstitial opacities which could represent vascular congestion, interstitial edema, subsegmental atelectasis and/or infiltrates. Given her symptomatic anemia, elevated troponin she will be admitted to hospital for further evaluation and management 04:37 This 69 yrs old Female presents to ER via Wheelchair with complaints of LOW rn BLOOD PRESSURE, Dizziness. 04:37 The patient presents with dizziness, lightheadedness. Onset: The symptoms/episode rn began/occurred 2 day(s) ago. Modifying factors: The symptoms are alleviated by lying down. The patient has experienced similar episodes in the past. Patient reports dizziness and feeling lightheaded since her Friday dialysis. States felt good on Friday, went to dialysis again on Friday and feels lightheaded again. Reports low blood pressure at home. Reports decreased p.o. intake and not drinking water due to fluid restrictions that dialysis puts on her. Denies any chest pain or shortness of breath. No focal neurological deficit. No abdominal pain/vomiting/diarrhea.. Allergies Penicillins Allergy (Severe, Verified 05/04/24 00:35) Anaphylaxis amoxicillin Adverse Reaction (Severe, Verified 05/04/24 00:35) Anaphylaxis levofloxacin Adverse Reaction (Intermediate, Verified 05/04/24 00:35) Headaches Home medications list reviewed: Yes Home Medications: Aspirin [Aspirin EC] 81 mg PO DAILY 04/10/22 Atorvastatin Calcium [Lipitor*] 10 mg PO DAILY 04/10/22 Vit B Comp C/Folic Acid/Vit D3 [Dialyvite 800 Plus D Wafer] 1 each PO DAILY 05/04/24 - Past Medical/Surgical History Diabetic: Yes -: HTN -: DM II with CKD & Polyneuropathy -: Metabolic Syndrome. Obesity. -: Dyslipidemia. -: Diastolic CHF -: ESRD (Dr. Retana/ Dr. Huber) MWF -: PAD -: CVD -: Obesity -: Umbilical hernia repair x 2 -: Appendectomy -: Cystoscopy with Bladder Biopsy -: Hysteroscopy with D&C -: AVF Psychosocial/ Personal History: Patient lives at home with her daughter. - Family History Mother Medical History: Diabetes, Kidney disease Father Medical History: Other (see notes) Notes: Brain aneurysm - Social History Alcohol use: No CD- Drugs: No Caffeine use: Yes Place of Residence: Home Review of Systems 10-point ROS is otherwise unremarkable General: Weakness, Malaise Respiratory: SOB with Excertion Physical Examination Temp Pulse Resp BP Pulse Ox 98.1 F 82 18 157/67 H 100 10/21/24 12:00 10/21/24 12:00 10/21/24 12:00 10/21/24 12:00 10/21/24 12:00 General: In no apparent distress, Oriented x3, Cooperative HEENT: Atraumatic Neck: Supple Respiratory: Clear to auscultation bilaterally, Normal air movement Cardiovascular: No edema, Regular rate/rhythm Gastrointestinal: Soft and benign, Non-distended Musculoskeletal: No clubbing, No contractures Integumentary: No rashes, No cyanosis Neurological: Normal speech Laboratory Data (last 24 hrs) 10/21/24 10/21/24 04:34 04:34 WBC 4.60 Hgb 6.8 L Hct 20.6 L Plt Count 125 L Sodium 139 Potassium 4.2 BUN 29 H Creatinine 3.92 H Glucose 157 H Imagings Data: [id number] XR CHEST 1 VIEW CLINICAL INDICATION: Dizziness, ESRD COMPARISON: No prior images available for comparison at time of interpretation. FINDINGS: SUPPORT DEVICES: None LUNGS/PLEURAL SPACES: Bilateral perihilar and basilar interstitial opacities could represent vascular congestion, interstitial edema, subsegmental atelectasis and/or infiltrates. No pleural effusion. No pneumothorax. HEART/MEDIASTINUM: Heart is enlarged. Atherosclerotic calcification at aortic arch. BONES/UPPER ABDOMEN/SOFT TISSUES: No acute findings. IMPRESSION: Bilateral perihilar and basilar interstitial opacities could represent vascular congestion, interstitial edema, subsegmental atelectasis and/or infiltrates. Conclusions/Impression: ESRD on HD -HD TIW MWF HTN with CKD/ CHF -Start Losartan 50mg BID Diastolic CHF, chronic -Low sodium diet DM II with CKD, Polyneuropathy and Peripheral Angiopathy -RISS Anemia in CKD -Retacrit X1 -Transfuse PRBC as ordered CKD MBD Secondary HyperParathyroidism -Start Renvela Case reviewed with Dr. Vega Thank you kindly for the consultation
--- NOTE | 2024-10-26 12:40 | EKG ---
Test Date: 2024-10-21 Test Time: 04:42:41 Glue Machine Operator: SINTIA MEASUREMENT RESULTS: Intervals: Rate: 74 AR: 214 QRSD: 136 QT: 436 QTc: 483 [place]: P: 24 AR: 214 QRS: -25 T: 7 INTERPRETIVE STATEMENTS: Sinus rhythm with 1st degree AV block Nonspecific intraventricular block Cannot rule out Anterior infarct, age undetermined Abnormal ECG Compared to ECG 05/03/2024 20:38:03 First degree AV block now present Myocardial infarct finding now present Left bundle-branch block no longer present Electronically Signed On 10-26-24 12:29:08 CDT by Sesar Peterson
== END 2024-10-21 18:05 | disposition home or self-care (01) ==
LOC: ER 04:08 → ERHOLD 06:45 → 2ND 08:08
PROVIDERS: ADMIT Hospitalist; ATTEND Hospitalist
PROC: 30233N1 Transfusion of Nonautologous Red Blood Cells into Peripheral Vein, Percutaneous Approach (ICD-10-PCS; principal; 2024-10-21)
DX: D50.0 Iron deficiency anemia secondary to blood loss (chronic) (principal); D63.1 Anemia in chronic kidney disease; N18.6 End stage renal disease; R79.89 Other specified abnormal findings of blood chemistry; E11.22 Type 2 diabetes mellitus with diabetic chronic kidney disease; I13.2 Hypertensive heart and chronic kidney disease with heart failure and with stage 5 chronic kidney disease, or end stage renal disease; I50.32 Chronic diastolic (congestive) heart failure; I95.9 Hypotension, unspecified; E78.5 Hyperlipidemia, unspecified; R42 Dizziness and giddiness; Z99.2 Dependence on renal dialysis; Z88.0 Allergy status to penicillin; Z88.1 Allergy status to other antibiotic agents
CPT/HCPCS: 93005; 85025; 80048; 36415; 86900; 86850; 86901; 82947 ×3; 86920; 84484 ×3; 71045; 96360; 99285; 36430; G0378 ×2; P9016; J7050 ×2

== ENCOUNTER 2024-10-25 19:23 | Emergency (ER) | payer OTHER ==
--- OUTSIDE RECORDS SUMMARY | 2024-10-25 19:27 | XMS REPORT | Continuity of Care Document ---
Author Name Unknown Address [address] [place] [address] [facility] Address [address] [place] [address] Care Team Providers Care Cargo Handler Name Role Phone SALOMÓN NELSON Primary Care Physician ERICH Carvajal Attending Clinician Unavailable ASHISH ADAN Attending Clinician Unavailab le GC_GCBZW_Kamadisona_S Attending Clinician Unavaila DARRIN Womack Attending Clinician UnavailDarrin Seaman MD Attending Clinician Doctor Unassigned, [place] Attending Clinician Zahida Dumont Attending Clinician EMMA HA Attending Clinician Unavailable ASHISH ADAN Admitting Clinician Unavailab kaelyn GC_GCBZW_Kamadisona_S Admitting Clinician UnavailDARRIN Rodgers Admitting Clinician Unavail le Payers Payer Name Policy Type Policy Number Effective Date Expirati on Date Source [place] AD[place] [id number] 2023 00:00:00 MEDICARE PART A \T\ B [id number] 2020 00:00:00 [place] [id number] 2021 00:00:00 Problems Condition Name Condition Details Condition Category Status Onset Date Resolution Date Last Treatment Date Treating Clinician Comments Source Morbid obesity with body mass index of 40.0-49.9 Morbid obesity with body mass index of 40.0-49.9 Disease Active 02-01 00:00: 00 [facility] Morbid obesity with body mass index of 40.0-49.9 Morbid obesity with body mass index of 40.0-49.9 Disease Active 02-01 00:00: 00 [facility] Acute respirator y disease due to COVID-19 virus Acute respirator y disease due to COVID-19 virus Disease Active 01-13 00:00: 00 [facility] Obesity (BMI 30-39.9) Obesity (BMI 30-39.9) Disease Active 01-13 00:00: 00 [facility] Urinary tract obstructio n Obstructiv e and reflux uropathy, unspecifie d Problem [facility] [id number] Cerebrovas cular accident (CVA), unspecifie d mechanism Problem [facility] [id number] End stage renal disease Problem [facility] [id number] Cystitis bacillary, chronic Problem [facility] [id number] Hydronephr osis, right Problem [facility] [id number] Recurrent UTI Problem [facility] [id number] Dependence on renal dialysis Problem [facility] [id number] Cystitis Problem [facility] [id number] Gross hematuria Problem [facility] [id number] Suprapubic pain Problem [facility] [id number] Lower urinary tract symptoms (LUTS) Problem [facility] [id number] Pelvic pain Problem [facility] [id number] Acute lower UTI Problem [facility] [id number] Acute cystitis with hematuria Problem [facility] Allergies, Adverse Reactions, Alerts Allergy Name Allergy Type Status Severity Reaction(s) Onset Date Inactive Date Treating Clinician Comments Source Penicill in Propensi ty to adverse reaction s Active Anaphylaxis 2014-06 00:00: 00 [facility] PENICILL IN DRUG INGREDI Active Anaphylaxis 2014-06 00:00: 00 [facility] [id number] Drug allergy Active Unknown [facility] Social History Social Habit Start Date Stop Date Quantity Comments Source History of Tobacco Use [facility] Sex Assigned At [facility] Exposure to SARS-CoV-2 (event) 2021-09-17 00:00:00 2021-09-27 09:49:00 Not sure [facility] History SDOH Transport Med 2020-01-14 00:00:00 2020-01-14 00:00:00 2 [facility] History SDOH Transport Non-Med 2020-01-14 00:00:00 2020-01-14 00:00:00 2 [facility] Tobacco use and exposure 2020-01-14 00:00:00 2020-01-14 00:00:00 Never used [facility] Alcohol intake 2020-01-14 00:00:00 2020-01-14 00:00:00 0 /d [facility] History SDOH Financial 2020-01-14 00:00:00 2020-01-14 00:00:00 1 [facility] History SDOH Food Worry 2020-01-14 00:00:00 2020-01-14 00:00:00 3 [facility] History SDOH Food Scarcity 2020-01-14 00:00:00 2020-01-14 00:00:00 3 [facility] Smoking Status Start Date Stop Date Source Never Smoker [facility] Medications Ordered Medication Name Filled Medication Name [...] 02-09 00:00: 00 05-11 05:59 :00 No [id number] 81mg Take 1 tablet by mouth daily for 90 days. [facility] cholecalcif filiberto, vitamin D3, 25 mcg (1,000 unit) tablet 02-09 00:00: 00 05-11 05:59 :00 No [id number] 1000U Take 1 tablet by mouth daily for 90 days. [facility] ferrous sulfate 325 mg (65 mg iron) tablet 02-09 00:00: 03-12 04:59 :00 No [id number] 325mg Take 1 tablet by mouth daily for 30 days. [facility] naproxen sodium (ALEVE) 220 mg capsule 02-08 21:56: 18 Yes 220{cap johan} Take 220 Caps by mouth as needed. [facility] naproxen sodium (ALEVE) 220 mg capsule 02-08 16:56: 18 Yes 220{cap johan} Take 220 Caps by mouth as needed. [facility] Lancets [facility] 02-08 00:00: 00 Yes [id number] Use as directed [facility] Blood-Gluco se Meter Kit 02-08 00:00: 00 Yes [id number] Use as directed [facility] Lancets Misc 02-08 00:00: 00 Yes [id number] Use as directed [facility] Blood-Gluco se Meter Kit 02-08 00:00: 00 Yes [id number] Use as directed [facility] Blood Glucose Strip-Disp Meter Kit 02-08 00:00: 00 Yes [id number] Use as directed [facility] amLODIPine 10 mg tablet 02-08 00:00: 00 05-10 05:59 :00 No [id number] 10mg Take 1 tablet by mouth daily for 90 days. [facility] carvediloL 12.5 mg tablet 02-08 00:00: 05-10 05:59 :00 No [id number] 12.5mg Take 1 tablet by mouth 2 (two) times daily with meals for 90 days. [facility] sennosides 8.6 mg tablet 02-08 00:00: 00 05-10 05:59 :00 No [id number] 8.6mg Take 1 tablet by mouth 2 (two) times daily for 90 days. [facility] Insulin Glargine (LANTUS SOLOSTAR U-100 INSULIN) 100 unit/mL (3 mL) injection 02-08 00:00: 05-10 05:59 :00 No [id number] 20U inject 20 Units under the skin at bedtime for 90 days. [facility] hydrALAZINE 25 mg tablet 02-08 00:00: 05-10 05:59 :00 No [id number] 25mg Take 1 tablet by mouth 2 (two) times daily for 90 days. [facility] furosemide 40 mg tablet 01-09 00:00: 00 Yes TAKE 1 TABLET BY MOUTH TWICE A DAY [facility] cyclobenzap rine 10 mg tablet 2018-06 00:00: 00 Yes 10mg Take 10 mg by mouth. [facility] metoclopram renato HCl 5 mg tablet 2018-06 00:00: 00 Yes 5mg Take 5 mg by mouth. [facility] pantoprazol e 40 mg EC tablet 2018-06 00:00: 00 Yes 40mg Take 40 mg by mouth. [facility] pravastatin 40 mg tablet 2018-06 00:00: 00 Yes 40mg Take 40 mg by mouth. [facility] Aspirin 81 81 MG Aspirin 81 [...] eeded} QD Colace 100 MG Vitamin D3 7002222 UNIT/GM Vitamin D3 1204013 UNIT/GM No Vitamin D3 4637238 UNIT/GM Aspirin 81 81 MG Aspirin 81 [...] eeded} QD Colace 100 MG Vitamin D3 2188958 UNIT/GM Vitamin D3 5313104 UNIT/GM No Vitamin D3 1696255 UNIT/GM Aspirin 81 81 MG Aspirin 81 [...] eeded} QD Colace 100 MG Vitamin D3 0785210 UNIT/GM Vitamin D3 9653833 UNIT/GM No Vitamin D3 7585132 UNIT/GM Aspirin 81 81 MG Aspirin 81 [...] food} BID Carvedilol 3.125 MG Vitamin D3 2820616 UNIT/GM Vitamin D3 6440959 UNIT/GM No Vitamin D3 3669380 UNIT/GM Losartan Potassium 25 MG Losartan Potassium [...] height 2022-06-13 11:15:00 62 [in_i] Comm n [facility] weight 2022-06-13 11:15:00 29.4 [lb_av] Com [facility] temperature 2022-06-13 11:15:00 97.4 [degF] Com [facility] bmi 2022-06-13 11:15:00 5.38 kg/m2 Comm n [facility] oximetry 2022-06-13 11:15:00 97 % Comm n [facility] respiratory rate 2022-06-13 11:15:00 16 /min [facility] blood pressure systolic 2022-06-13 11:15:00 135 mm[Hg] Common [facility] blood pressure diastolic 2022-06-13 11:15:00 62 mm[Hg] [facility] height 2021-12-13 10:00:00 62 [in_i] Commo n [facility] weight 2021-12-13 10:00:00 223 [lb_av] Comm on [facility] temperature 2021-12-13 10:00:00 97.8 [degF] Com mon [facility] bmi 2021-12-13 10:00:00 40.78 kg/m2 Comm on [facility] oximetry 2021-12-13 10:00:00 98 % Commo n [facility] respiratory rate 2021-12-13 10:00:00 16 /min [facility] blood pressure systolic 2021-12-13 10:00:00 132 mm[Hg] Common [facility] blood pressure diastolic 2021-12-13 10:00:00 68 mm[Hg] Common [facility] height 2021-11-29 15:30:00 62 [in_i] Commo n [facility] weight 2021-11-29 15:30:00 223.8 [lb_av] Co mmon [facility] temperature 2021-11-29 15:30:00 97.2 [degF] Com mon [facility] bmi 2021-11-29 15:30:00 40.93 kg/m2 Comm on [facility] oximetry 2021-11-29 15:30:00 98 % Commo n [facility] respiratory rate 2021-11-29 15:30:00 16 /min [facility] blood pressure systolic 2021-11-29 15:30:00 189 mm[Hg] Common [facility] blood pressure diastolic 2021-11-29 15:30:00 73 mm[Hg] [facility] Procedures Procedure Date / Time Performed Performing Clinician Source MR LUMBAR SPINE WO CONTRAST 2021-10-03 17:33:38 Darrin Jett [facility] MR CERVICAL SPINE WO CONTRAST 2021-09-27 16:22:00 Darrin Jett [facility] NOTICE OF PRIVACY PRACTICES 2021-09-27 14:56:14 Doctor Unassigned, [place] [facility] CONSENT/REFUSAL FOR DIAGNOSIS AND TREATMENT 2021-09-27 14:55:59 Doctor Unassigned, [place] [facility] CONSENT/REFUSAL FOR DIAGNOSIS AND TREATMENT 2021-09-27 14:55:21 Doctor Unassigned, [place] [facility] ASSIGNMENT OF BENEFITS 2021-09-27 14:54:58 Docto r Unassigned, [place] [facility] AUTHORIZATION FOR RELEASE OF PHI 2020-03-07 05:01:00 Doctor Unassigned, [place] [facility] Encounters Start Date/Time End Date/Time Encounter Type Admission Type Attending [facility] Care Department Encounter ID Source 2022-02-18 14:14:03 Outpatient ERICH AMOS [facility] [id number] [facility] 2021-11-29 14:01:03 Outpatient ERICH AMOS [facility] [id number] [facility] 2023-11-02 22:23:00 2023-11-03 00:40:00 Emergency X ASHISH ADAN [facility] ERT [id number] [facility] 2023-04-01 00:00:00 2023-04-01 00:00:00 Outpatient GC_GCBZW_Ka diyala_S PRIV PRIV [id number] [facility] 2023-03-31 00:00:00 2023-03-31 00:00:00 Outpatient GC_GCBZW_Ka diyala_S PRIV PRIV [id number] [facility] 2022-08-20 00:00:00 2022-08-20 00:00:00 (TEL) [facility] [id number] [facility] 2022-06-27 00:00:00 2022-06-27 00:00:00 (TEL) STLMLC [facility] [id number] [facility] 2022-06-13 00:00:00 2022-06-13 00:00:00 OFFICE VISIT EST PT LEVEL 3 STLMLC STL[facility]C [id number] [facility] 2022-03-08 00:00:00 2022-03-08 00:00:00 OL DIG E/M SVC 21+ MIN STLMLC STLMLC [id number] [facility] 2022-02-01 00:00:00 2022-02-01 00:00:00 (TEL) STLMLC STLMLC [id number] [facility] 2022 00:00:00 2022 00:00:00 OFFICE VISIT ESTAB PT LEVEL 1 STLMLC STLMLC [id number] [facility] 2021-12-13 00:00:00 2021-12-13 00:00:00 OFFICE VISIT ESTAB PT LEVEL 2 STLMLC STLMLC [id number] [facility] 2021-11-29 00:00:00 2021-11-29 00:00:00 OFFICE VISIT NEW PT LEVEL 4 STLMLC STLMLC [id number] [facility] 2021-10-03 11:18:32 2021-10-03 23:59:00 [facility] [id number] [facility] 2021-10-03 11:18:32 2021-10-03 23:59:00 Hospital Encounter [facility] [id number] [facility] 2021-09-27 09:30:00 2021-09-27 23:59:00 Hospital Encounter [facility] [id number] [facility] 2021-09-27 09:51:28 2021-09-27 09:29:00 Outpatient R DARRIN JETT [facility] [id number] [facility] 2021-09-27 09:00:00 2021-09-27 09:29:00 Hospital Encounter Darrin Jett [facility] [id number] [facility] 2020-03-07 00:00:00 2020-03-07 00:00:00 Orders Only Doctor Unassigned, [place] [facility] [id number] [facility] 2020-03-07 00:00:00 2020-03-07 00:00:00 Orders Only Doctor Unassigned, [place] [facility] [id number] 2020-02-10 00:00:00 2020-02-10 00:00:00 Transition of Care Zahida Girard [id number] [facility] 2020-02-10 00:00:00 2020-02-10 00:00:00 Transition of Care Zahida Girard [id number] 2020-01-13 21:11:00 2020-01-13 21:11:00 Emergency X EMMA HA [facility] ERT [id number] [facility]
[2024-10-25 20:42] LABS: Absolute Eosinophils 0.2 K/uL (0-0.5); Absolute Lymphocytes (CBC) 0.7 K/uL (0.7-4.9); Absolute Monocytes 0.5 K/uL (0.1-1.3); Absolute Neutrophil 3.1 K/uL (1.8-8.0); Eosinophils % 3.5 % (0-4.4); Hematocrit 25.7 % (36.0-45.0); Hemoglobin 8.4 g/dL (12.0-15.0); Lymphocytes % 16.3 % (15.3-44.8); MCH 30.8 pg (27.0-35.0); MCHC 32.7 g/dL (32.0-36.0); MCV 94.2 fL (80-100); MPV 8.9 fL (7.6-11.3); Monocytes % 10.1 % (3.3-12.3); Neutrophils % 69.1 % (41.7-73.7); Nucleated Red Blood Cells % 0.2 % (0-0); Platelets 165 thou/uL (152-406); RBC Red Blood Cell Count 2.72 M/uL (3.86-4.86); Red Cell Distribution Width 16.1 % (12.1-15.2)
[2024-10-25 20:52] LABS: PT Prothrombin Time 12.9 SECONDS (10-13.0); PTT, Activated Partial Thromb 26.6 SECONDS (27.2-37.4); Protime INR 1.14
[2024-10-25 21:06] LABS: ALT/SGPT 17 U/L (13-56); Albumin 3.4 g/dL (3.4-5.0); Albumin/Globulin Ratio 1.1 (1.1-1.8); Alkaline Phosphatase 101 U/L (45-117); Anion Gap 7.5 mEq/L (5.0-15.0); BUN Blood Urea Nitrogen 22 mg/dL (7-18); Bicarbonate 30 mEq/L (21-32); Bilirubin Total 0.3 mg/dL (0.2-1.0); Glomerular Filtration Rate 12 ml/min (=/>90); Glucose Level 190 mg/dL (74-106); Magnesium 2.4 mg/dL (1.6-2.4); Potassium 3.5 mEq/L (3.5-5.1); Protein, Total 6.4 g/dL (6.4-8.2); Sodium Level 137 mEq/L (136-145); Troponin High Sensitivity 52.1 pg/mL (<58.9)
[2024-10-25 21:12] LABS: AST/SGOT < 10 U/L (15-37); Bilirubin Direct < 0.2 mg/dL (0-0.2); Bilirubin Indirect, Calculated 0.1 mg/dL (0.2-0.8)
--- NOTE | 2024-10-25 21:21 | RAD REPORT ---
Procedure: Chest Single View HISTORY: Shortness of breath COMPARISON: October 21, 2024 FINDINGS: Mild bilateral interstitial lung opacities unchanged. No significant pleural effusion noted. The heart is mildly enlarged. IMPRESSION: Mild bilateral interstitial lung opacities may represent mild interstitial pulmonary edema or be keypuncher valdez.
--- NOTE | 2024-10-25 22:01 | EDPHYS ---
Physician Documentation [facility] Name: Abby Meredith Age: 69 yrs Sex: Female : 1955 Arrival Date: 10/25/2024 Time: 19:23 Bed 17 Private MD: ED Physician Eric Montgomery HPI: 10/25 23:30 This 69 yrs old Female presents to ER via Ambulatory with complaints of High kb Blood Sugar. 23:30 Pt is a 69 year old female who presents for high blood sugar that started this kb afternoon. Pt states her blood sugar started in the 200s and christian to 360 prior to arrival. Reports nausea and general malaise. Spouse states pt passed out last time her sugar was running high like this so he brought her in for evaluation. . Historical: - Allergies: 19:53 PENICILLINS; hb - PMHx: 19:53 Diabetes - IDDM; CHF; Hyperlipidemia; Hypertension; Dialysis; M-W-F; hb - Immunization history:: Adult Immunizations up to date. - Infectious Disease History:: Denies. - Social history:: Smoking status: Patient denies any tobacco usage or history of. ROS: 23:25 Constitutional: As per HPI kb Exam: 20:40 ECG was reviewed by the Attending Physician. kb 23:25 Constitutional: This is a well developed, well nourished patient who is awake, alert, kb and in no acute distress. Head/Face: Normocephalic, atraumatic. ENT: Moist Mucous membranes Cardiovascular: Regular rate Respiratory: Respirations even and unlabored. No increased work of breathing. Talking in full sentences Skin: Warm, dry with normal turgor. Normal color. MS/ Extremity: Pulses equal, no cyanosis. Neurovascular intact. Full, normal range of motion. Neuro: Awake and alert, GCS 15, oriented to person, place, time, and situation. Vital Signs: 19:50 BP 141 / 66; Pulse 73; Resp 20; Temp 98.6(O); Pulse Ox 98% on R/A; Weight 86.18 kg; hb Height 5 ft. 2 in. ; Pain 0/10; 20:30 BP 144 / 58; Pulse 72; Resp 20; Pulse Ox 98% ; al5 21:00 BP 149 / 59; Pulse 72; Resp 20; Pulse Ox 99% ; al5 21:30 BP 148 / 54; Pulse 70; Resp 19; Pulse Ox 96% ; al5 22:00 BP 133 / 56; Pulse 71; Resp 19; Pulse Ox 98% ; al5 19:50 Body Mass Index 34.75 (86.18 kg, 157.48 cm) hb 19:50 Pain Scale: Adult hb MDM: 19:32 Medical Screening Exam initiated kb 23:30 Differential diagnosis: DKA, hyperglycemia. Data reviewed: vital signs, nurses notes. kb Historians other than the Patient: Spouse/Significant Other: spouse. Care significantly affected by the following chronic conditions: Chronic Kidney Disease. Counseling: I had a detailed discussion with the patient and/or guardian regarding the historical points, exam findings, and any diagnostic results supporting the discharge/admit diagnosis, lab results, radiology results, the need for outpatient follow up, a family practitioner, to return to the emergency department if symptoms worsen or persist or if there are any questions or concerns that arise at home. 10/25 19:52 Order name: Basic Metabolic Panel; Complete Time: 21:13 kb 10/25 19:52 Order name: CBC with Diff; Complete Time: 21:13 kb 10/25 19:52 Order name: Hepatic Function; Complete Time: 21:13 kb 10/25 19:52 Order name: Magnesium; Complete Time: 21:13 kb 10/25 19:52 Order name: Protime (+inr); Complete Time: 21:13 kb 10/25 19:52 Order name: Ptt, Activated; Complete Time: 21:13 kb 10/25 19:52 Order name: Troponin High Sensitivity; Complete Time: 21:13 kb 10/25 20:37 Order name: Glucose, Ancillary Testing; Complete Time: 20:37 EDMS 10/25 19:52 Order name: Chest Single View XRAY; Complete Time: 21:25 kb 10/25 19:52 Order name: Cardiac monitoring; Complete Time: 20:28 kb 10/25 19:52 Order name: EKG - Nurse/Tech; Complete Time: 20:28 kb 10/25 19:52 Order name: IV Saline Lock; Complete Time: 20:28 kb 10/25 19:52 Order name: Labs collected and sent; Complete Time: 20:28 kb 10/25 19:52 Order name: NPO; Complete Time: 20:28 kb 10/25 19:52 Order name: O2 Per Protocol; Complete Time: 20:28 kb 10/25 19:52 Order name: O2 Sat Monitoring; Complete Time: 20:28 kb EC:40 Rate is 73 beats/min. Rhythm is regular. QRS [place] is Normal. HI interval is normal at kb 174 msec. QRS interval is normal at 130 msec. QT interval is normal at 480 msec. Administered Medications: No medications were administered Disposition: 10/26 11:29 Co-signature as Attending Physician, Eric Montgomery MD I reviewed the patient's care rt provided by the Advanced Practice Provider and agree with the diagnosis and treatment plan. Disposition Summary: 10/25/24 22:00 Discharge Ordered Notes: Location: Home kb Condition: Stable kb Diagnosis - Hyperglycemia, unspecified kb Followup: kb - With: Emergency Department - When: As needed - Reason: Worsening of condition Followup: kb - With: Private Physician - When: 2 - 3 days - Reason: Recheck today's complaints, Continuance of care, Re-evaluation by your physician Discharge Instructions: - Discharge Summary Sheet kb - Hyperglycemia, [id number] kb Forms: - Medication Reconciliation Form kb - Antibiotic Education kb - Prescription Opioid Use kb - Patient Portal Instructions kb - Leadership Thank You Letter kb Signatures: Dispatcher [employer] EDElvira Willett, WOOD GRINDER-C WOOD GRINDER-Shilob Jennifer Morejon RN RN Eric Montgomery MD MD rt Corrections: (The following items were deleted from the chart) 10/25 19:52 19:52 BASIC METABOLIC PANEL+C.LAB.BRZ ordered. EDMS EDMS 19:52 19:52 CBC+H.LAB.BRZ ordered. EDMS EDMS 19:52 19:52 HEPATIC FUNCTION+C.LAB.BRZ ordered. EDMS EDMS 19:52 19:52 MAGNESIUM+C.LAB.BRZ ordered. EDMS EDMS 19:52 19:52 PROTIME (+INR)+COAG.LAB.BRZ ordered. EDMS EDMS 19:52 19:52 PTT, ACTIVATED+COAG.LAB.BRZ ordered. EDMS EDMS 19:52 19:52 Troponin High Sensitivity+C.LAB.BRZ ordered. EDMS EDMS 19:52 19:52 Chest Single View+RAD.RAD.BRZ ordered. EDMS EDMS
--- NOTE | 2024-10-25 22:01 | ER ---
Nurse's Notes [facility] Name: Abby Meredith Age: 69 yrs Sex: Female : 1955 Arrival Date: 10/25/2024 Time: 19:23 Bed 17 Private MD: Diagnosis: Hyperglycemia, unspecified Presentation: 10/25 19:50 Chief complaint: Malaise and SOB that started after dialysis this morning. Home BGL hb 250-325. Coronavirus screen: At this time, the client does not indicate any symptoms associated with coronavirus-19. Ebola Screen: No symptoms or risks identified at this time. Initial Sepsis Screen: Does the patient meet any 2 criteria? No. Patient's initial sepsis screen is negative. Does the patient have a suspected source of infection? No. Patient's initial sepsis screen is negative. Risk Assessment: Do you want to hurt yourself or someone else? Patient reports no desire to harm self or others. Onset of symptoms was October 25, 2024. 19:50 Method Of Arrival: Ambulatory hb 19:50 Acuity: TOMASA 3 hb Historical: - Allergies: 19:53 PENICILLINS; hb - PMHx: 19:53 Diabetes - IDDM; CHF; Hyperlipidemia; Hypertension; Dialysis; M-W-F; hb - Immunization history:: Adult Immunizations up to date. - Infectious Disease History:: Denies. - Social history:: Smoking status: Patient denies any tobacco usage or history of. Screenin:31 [facility] ED Fall Risk Assessment (Adult) History of falling in the last 3 months, al5 including since admission No falls in past 3 months (0 pts) Confusion or Disorientation No (0 pts) Intoxicated or Sedated No (0 pts) Impaired Gait Yes (1 pt) Mobility Assist Device Used Yes (1 pt) Altered Elimination No (0 pt) Score/Fall Risk Level 0 - 2 = Low Risk Oriented to surroundings, Maintained a safe environment, Hourly rounding (assess needs \T\ fall precautionary measures) done. Abuse screen: Denies threats or abuse. Denies injuries from another. Nutritional screening: No deficits noted. Tuberculosis screening: No symptoms or risk factors identified. Assessment: 20:29 General: Appears in no apparent distress. uncomfortable, Behavior is calm, cooperative. al5 Pain: Denies pain. Neuro: Level of Consciousness is awake, alert, obeys commands. Cardiovascular: Capillary refill < 3 seconds Patient's skin is warm and dry. Rhythm is sinus rhythm. Respiratory: Reports shortness of breath Airway is patent Respiratory effort is even, unlabored, Respiratory pattern is regular, symmetrical. GI: No signs and/or symptoms were reported involving the gastrointestinal system. : fistula to L upper arm for dialysis, has port. EENT: No signs and/or symptoms were reported regarding the EENT system. Derm: Skin is intact, is healthy with good turgor, Skin is pink, warm \T\ dry. normal. Musculoskeletal: Reports generalized aches. 21:58 Reassessment: Patient appears in no apparent distress at this time. No changes from al5 previously documented assessment. Patient and/or family updated on plan of care and expected duration. Pain level reassessed. Patient is alert, oriented x 3, equal unlabored respirations, skin warm/dry/pink. Vital Signs: 19:50 BP 141 / 66; Pulse 73; Resp 20; Temp 98.6(O); Pulse Ox 98% on R/A; Weight 86.18 kg; hb Height 5 ft. 2 in. ; Pain 0/10; 20:30 BP 144 / 58; Pulse 72; Resp 20; Pulse Ox 98% ; al5 21:00 BP 149 / 59; Pulse 72; Resp 20; Pulse Ox 99% ; al5 21:30 BP 148 / 54; Pulse 70; Resp 19; Pulse Ox 96% ; al5 22:00 BP 133 / 56; Pulse 71; Resp 19; Pulse Ox 98% ; al5 19:50 Body Mass Index 34.75 (86.18 kg, 157.48 cm) hb 19:50 Pain Scale: Adult hb ED Course: 19:25 Patient arrived in ED. [email or web address] 19:32 Elvira Holliday FNP-C is [facility]. kb 19:32 Eric Montgomery MD is Attending Physician. kb 19:53 Triage completed. hb 19:53 Arm band placed on. hb 20:06 Michelle Shirley, BLAIR is Primary Nurse. al5 20:28 Basic Metabolic Panel Sent. al5 20:28 Hepatic Function Sent. al5 20:28 CBC with Diff Sent. al5 20:28 Protime (+inr) Sent. al5 20:28 Magnesium Sent. al5 20:28 Ptt, Activated Sent. al5 20:28 Troponin High Sensitivity Sent. al5 20:31 Patient has correct armband on for positive identification. Bed in low position. Call al5 light in reach. Side rails up X2. Provided Education on: plan of care. 20:31 No provider procedures requiring assistance completed. Inserted saline lock: 22 gauge al5 in right antecubital area, using aseptic technique. Blood collected. Flushed with 10 mL NS. 21:09 Chest Single View XRAY In Process Unspecified. EDMS 22:14 IV discontinued, intact, bleeding controlled, No redness/swelling at site. Pressure al5 dressing applied. Administered Medications: No medications were administered Medication: 20:31 VIS not applicable for this client. al5 Outcome: 22:00 Discharge ordered by . nasra 22:14 Discharged to home ambulatory, via wheelchair, al5 22:14 Condition: good 22:14 Discharge instructions given to patient, significant other, Instructed on discharge instructions, follow up and referral plans. Demonstrated understanding of instructions, follow-up care, 22:14 Patient left the ED. al5 Signatures: Dispatcher [employer] EDMS Elvira Holliday, MOTOR EXPERT-C MOTOR EXPERT-Ckb Jennifer Morejon RN RN Samantha Kraft [email or web address] Michelle Shirley RN RN al5 Corrections: (The following items were deleted from the chart) 22:15 21:30 BP 125 / 76; Pulse 79bpm; Resp 18bpm; Pulse Ox 97%; al5 al5 22:15 22:00 BP 131 / 76; Pulse 77bpm; Resp 17bpm; Pulse Ox 98%; al5 al5
[2024-10-25 22:28] VITALS: TEMP 98.6
[2024-10-25 22:35] VITALS: BP 133/56; O2SAT 98
--- NOTE | 2024-10-26 12:18 | EKG ---
Test Date: 2024-10-25 Test Time: 20:14:15 Box Loader: SINTIA MEASUREMENT RESULTS: Intervals: Rate: 73 PA: 174 QRSD: 130 QT: 436 QTc: 480 [place]: P: 17 PA: 174 QRS: -11 T: 13 INTERPRETIVE STATEMENTS: Normal sinus rhythm Nonspecific intraventricular block Cannot rule out Anterior infarct, age undetermined Abnormal ECG Compared to ECG 10/21/2024 04:42:41 First degree AV block no longer present Myocardial infarct finding still present Electronically Signed On 10-26-24 12:16:50 CDT by Sesar Peterson
== END 2024-10-25 22:14 | disposition home or self-care (01) ==
LOC: ER 19:23
DX: E11.65 Type 2 diabetes mellitus with hyperglycemia (principal)
CPT/HCPCS: 36415; 71045; 80048; 80076; 82947; 83735; 84484; 85025; 85610; 85730; 93005; 99284